=== PATIENT | male | born 1960 ===

== ENCOUNTER → 2020-06-09 12:14 | Outpatient (BNVA) | payer OTHER, SELFPAY | PROVIDERS: PCP Internal Medicine; Referring Provider Internal Medicine; Visit Provider Nurse Practitioner | DX: K21.9 Gastro-esophageal reflux disease without esophagitis (principal); K40.90 Unilateral inguinal hernia, without obstruction or gangrene, not specified as recurrent; K75.81 Nonalcoholic steatohepatitis (NASH); K64.9 Unspecified hemorrhoids; K59.04 Chronic idiopathic constipation; R10.9 Unspecified abdominal pain; Z87.891 Personal history of nicotine dependence | CPT/HCPCS: 99212 ==

== ENCOUNTER 2020-06-19 16:02 | Outpatient (REF) | payer OTHER, SELFPAY ==
[2020-06-19 17:34] LABS: Alanine Aminotransferase 45 U/L (0-40); Albumin Level 4.3 g/dL (3.5-5.0); Alkaline Phosphatase 70 U/L (39-117); Aspartate Amino Transferase 28 U/L (5-37); Bilirubin Direct 0.3 mg/dL (0.0-0.5); Bilirubin Total 0.9 mg/dL (0.0-1.0); Total Protein 6.4 g/dL (6.5-8.0)
[2020-06-20 11:23] LABS: Alpha Fetoprotein 3.6 ng/mL (<6.1)
== END 2020-06-19 16:03 | disposition home or self-care (01) ==
LOC: HO.LAB 16:02
PROVIDERS: PCP Internal Medicine; Visit Provider Nurse Practitioner
DX: K43.2 Incisional hernia without obstruction or gangrene (principal); K75.81 Nonalcoholic steatohepatitis (NASH); Z87.891 Personal history of nicotine dependence
CPT/HCPCS: 80076; 82105; 99212

== ENCOUNTER 2020-07-11 08:03 | Outpatient (REF) | payer OTHER, SELFPAY ==
--- NOTE | 2020-07-11 08:06 | US_ITS ---
EXAMINATION: US ABDOMEN LIMITED CLINICAL INFORMATION: Nonalcoholic steatohepatitis. COMPARISON: Recent abdominal ultrasound dated 12/21/2019 TECHNIQUE: Real-time imaging of the right upper quadrant abdominal viscera. FINDINGS: PANCREAS: Visualized portions of the pancreas are unremarkable. Portions of the body and tail are obscured by bowel gas. LIVER: Increased hepatic parenchymal echogenicity, which can be seen in the setting of steatosis. Underlying hepatocellular disease cannot be excluded. No hepatic parenchymal lesion or biliary ductal dilatation. Focal fatty sparing adjacent to the gallbladder fossa. GALLBLADDER: Normal. The gallbladder is physiologically distended without evidence of stones, sludge, polyps, wall thickening or pericholecystic fluid. COMMON BILE DUCT: Normal in caliber measuring 0.6 cm in diameter. RIGHT KIDNEY: Normal. No hydronephrosis. No renal calculi or focal parenchymal lesions. The kidney measures 10.9 cm in maximum dimension. FREE FLUID: None. US/US abdomen limited IMPRESSION: Increased hepatic parenchymal echogenicity, which can be seen in the setting of steatosis. Underlying hepatocellular disease cannot be excluded. No hepatic parenchymal lesion or biliary ductal dilatation.
--- NOTE | 2020-07-11 13:46 | CT_ITS ---
EXAMINATION: CT ABDOMEN AND PELVIS WITHOUT CONTRAST CLINICAL INFORMATION: Incisional hernia without obstruction or gangrene. COMPARISON: Abdominal ultrasound done earlier the same day. CT abdomen/pelvis dated 07/11/2018. TECHNIQUE: Multidetector volumetric imaging was performed from the superior aspect of the liver through the pubic symphysis. Sagittal and coronal reformatted images were obtained on the technologist's workstation. This CT examination was performed using dose optimization techniques as appropriate, variously including the following: *Automated exposure control *Adjustment of mA and/or kV according to patient size (this includes techniques or standardized protocols for targeted exams where dose is matched to indication/reason for exam; i.e. extremities or head) *Use of iterative reconstruction technique DLP: 558 mGy-cm FINDINGS: LUNG BASES: The visualized lung bases are unremarkable. LIVER, GALLBLADDER, AND BILIARY TREE: The liver is normal in size and shape. Parenchymal hypoattenuation, consistent with steatosis. No focal hepatic lesion or biliary ductal dilatation is present. The gallbladder is unremarkable with no evidence of radiopaque gallstones, gallbladder wall thickening, or obvious pericholecystic inflammatory changes. PANCREAS: Unremarkable. SPLEEN: Unremarkable. ADRENAL GLANDS: Unremarkable. KIDNEYS AND URETERS: The kidneys are normal in size, shape, and attenuation. No hydronephrosis, hydroureter, or calculi seen. No perinephric stranding. BLADDER: Unremarkable. GASTROINTESTINAL TRACT: There are a few scattered sigmoid diverticula. No bowel wall thickening or associated inflammatory change. No small or large bowel obstruction. Appendix not identified, however, no right lower quadrant inflammatory change to suggest appendicitis. PERITONEAL CAVITY: No intra-abdominal free air or free fluid. No intra-abdominal mass or organized fluid collection/abscess. ABDOMINAL WALL: Anterior abdominal wall postsurgical change consistent with prior hernia repair. The previously seen left anterior abdominal wall bowel containing hernia is no longer identified. There is somewhat linear soft tissue density in this region, consistent with postsurgical change. Additional somewhat linear soft tissue density more superiorly, consistent with postsurgical change. No recurrent anterior abdominal wall hernia. No abnormal soft tissue mass or fluid collection. Stable, fat-containing left inguinal hernia. LYMPH NODES: No new or increasing lymphadenopathy. VASCULAR: Unremarkable. PELVIC VISCERA: The prostate and seminal vesicles are unremarkable. OSSEOUS STRUCTURES: Unremarkable. CT/CT abdomen pelvis wo con IMPRESSION: 1. Extensive postsurgical change throughout the anterior abdominal wall consistent with prior hernia repair. Previously seen bowel containing left anterior abdominal wall hernia no longer identified. No recurrent hernia, mass, fluid collection, or inflammatory change. 2. Hepatic steatosis. No hepatic parenchymal lesion or biliary ductal dilatation.
== END 2020-07-11 08:04 | disposition home or self-care (01) ==
LOC: HO.US 08:03
PROVIDERS: PCP Internal Medicine; Visit Provider Nurse Practitioner
DX: K43.2 Incisional hernia without obstruction or gangrene (principal); K75.81 Nonalcoholic steatohepatitis (NASH)
CPT/HCPCS: 74176; 76705

== ENCOUNTER → 2020-09-08 12:27 | Outpatient (BNVA) | payer OTHER, SELFPAY | PROVIDERS: PCP Internal Medicine; Visit Provider Nurse Practitioner | DX: Z13.89 Encounter for screening for other disorder (principal) | CPT/HCPCS: Q3014 ==

== ENCOUNTER → 2020-09-14 10:44 | Outpatient (BNVA) | payer OTHER, SELFPAY | PROVIDERS: PCP Internal Medicine; Visit Provider Internal Medicine | DX: J44.9 Chronic obstructive pulmonary disease, unspecified (principal); J30.9 Allergic rhinitis, unspecified; Z79.51 Long term (current) use of inhaled steroids; Z87.891 Personal history of nicotine dependence | CPT/HCPCS: 99212 ==

== ENCOUNTER 2020-09-27 09:49 | Outpatient (REF) | payer OTHER, SELFPAY ==
--- NOTE | 2020-09-27 10:55 | PFT_ITS ---
FLOWS: FEV1 of 69% of predicted at 2.46 L. FVC 74% of predicted at 3.35 L. FEV1 to FVC ratio of 0.73. Positive bronchodilator response. LUNG VOLUMES: Total lung capacity 93% of predicted at 6.37 L. Residual volume 147% of predicted at 3.0 L. Slow vital capacity 73% of predicted at 3.37 L. Expiratory reserve volume 19% of predicted at 0.26 L. Diffusion capacity is normal. IMPRESSION: Moderate obstructive ventilatory defect with positive bronchodilator response. Increased residual volume suggests air trapping. Decreased expiratory reserve volume suggests extrathoracic restriction likely secondary to abdominal obesity. MD VENKAT Jones/MODL / [id number]
== END 2020-09-27 09:50 | disposition home or self-care (01) ==
LOC: HO.RESP 09:49
PROVIDERS: PCP Internal Medicine; Visit Provider Internal Medicine
DX: J44.9 Chronic obstructive pulmonary disease, unspecified (principal)
CPT/HCPCS: 94060; 94727; 94729

== ENCOUNTER 2021-02-22 16:21 | Outpatient (REF) | payer OTHER, SELFPAY ==
--- NOTE | ~2021-02-22 | US_ITS ---
EXAMINATION: US PELVIS LIMITED (BLADDER) CLINICAL INFORMATION: Unspecified urinary incontinence. COMPARISON: CT abdomen and pelvis 07/11/2020. Ultrasound abdomen limited 07/11/2020. Ultrasound abdomen complete 12/21/2019. KUB 02/08/2019. TECHNIQUE: Real-time imaging of the bladder. FINDINGS: BLADDER: Well distended and normal. Bilateral ureteral jets are demonstrated. Prevoid bladder volume is 134.0 mL. Postvoid bladder volume is 19.0 mL. ADDITIONAL FINDINGS: The prostate gland is slightly enlarged measuring 4.9 x 3.3 x 3.4 cm, volume 29 mL the base of the bladder. US/US bladder IMPRESSION: Slightly enlarged prostate gland that protrudes into the base of the bladder. Otherwise unremarkable exam. No postvoid bladder residual..
[2021-02-22 17:50] LABS: MANUAL DIFF FLAG NO
[2021-02-22 18:16] LABS: Glucose Urine UA NEG (NEG); Leukocyte Esterase Urine NEG (NEG); Nitrite Urine NEG (NEG); Specific Gravity - Urine <= 1.005 (1.005-1.025); Urine Blood TRACE (NEG); Urine Ketones NEG (NEG); Urine Protein NEG (NEG-TRACE)
[2021-02-22 18:18] LABS: Basophils Percent Auto 0.5 % (0-2); Eosinophils Absolute Auto 0.2 X10*3/uL (0.0-0.4); Eosinophils Percent Auto 2.3 % (0-4); Hematocrit 43.9 % (42-52); Hemoglobin 15.5 g/dl (14.0-18.0); Imm Gran Abs Auto 0.06 X10*3/uL (0.00-0.03); Imm Gran Pct Auto 0.8 % (0.0-0.4); Lymphocytes Absolute Auto 1.8 X10*3/uL (1.2-4.9); Lymphocytes Percent Auto 22.6 % (20-40); Mean Corpuscular HGB Conc 35.3 g/dl (31.0-36.0); Mean Corpuscular Hemoglobin 30.9 pg (27.0-33.0); Mean Corpuscular Volume 87.5 fL (80-98); Mean Platelet Volume 11.6 fL (9.4-12.4); Monocytes Absolute Auto 0.6 X10*3/uL (0.1-1.2); Monocytes Percent Auto 8.2 % (2-11); Neutrophils Absolute Auto 5.1 X10*3/uL (2.0-8.3); Neutrophils Percent Auto 65.6 % (45-73); Platelet Count 184 X10*3/uL (160-400); Red Blood Count 5.02 X10*6/uL (4.60-5.80); Red Cell Distribution Width 13.4 % (11.0-16.0); White Blood Count 7.8 X10*3/uL (4.8-10.8)
[2021-02-22 18:26] LABS: Appearance Urine CLEAR; Color Urine STRAW
[2021-02-22 18:28] LABS: Alanine Aminotransferase 104 U/L (0-40); Albumin Level 4.5 g/dL (3.5-5.0); Alkaline Phosphatase 82 U/L (39-117); Aspartate Amino Transferase 50 U/L (5-37); Bilirubin Direct 0.3 mg/dL (0.0-0.5); Total Protein 6.7 g/dL (6.5-8.0)
[2021-02-22 18:29] LABS: Alanine Aminotransferase 103 U/L (0-40); Albumin Level 4.5 g/dL (3.5-5.0); Alkaline Phosphatase 80 U/L (39-117); Anion Gap 11 (12-20); Aspartate Amino Transferase 48 U/L (5-37); Blood Urea Nitrogen 15 mg/dL (9-16); Calcium 9.3 mg/dL (8.4-10.2); Carbon Dioxide 26 mmol/L (22-29); Chloride 104 mmol/L (96-108); Cholesterol 187 mg/dL; Estimated Glomerular Filt Rate > 60; Glucose Random 110 mg/dL (60-115); HDL Cholesterol 40 mg/dL; LDL Cholesterol Calculated 122 mg/dl; Potassium 4.1 mmol/L (3.3-5.1); Sodium 137 mmol/L (135-145); Total Protein 6.7 g/dL (6.5-8.0); Triglycerides 126 mg/dL
[2021-02-22 18:32] LABS: Squamous Epithelial Cell Urine TRACE /LPF; WBC Urine 0 /HPF (0-4)
[2021-02-22 18:48] LABS: Free T4 (Free Thyroxine) 0.99 ng/dL (0.71-1.85); PSA,Total (Free>4and<10) 2.86 ng/mL (0.00-4.00)
[2021-02-22 19:01] LABS: Folate > 20.0 ng/mL (> or = 4.0); Vitamin B12 439 pg/mL (200-900)
[2021-02-27 12:37] LABS: Alpha Fetoprotein 4.2 ng/mL (<6.1)
== END 2021-02-22 16:22 | disposition home or self-care (01) ==
LOC: HO.US 16:21
PROVIDERS: Internal Medicine; Nurse Practitioner; Urology; PCP Internal Medicine; Visit Provider Internal Medicine
DX: R97.20 Elevated prostate specific antigen [PSA] (principal); R32 Unspecified urinary incontinence; K75.81 Nonalcoholic steatohepatitis (NASH); K21.9 Gastro-esophageal reflux disease without esophagitis; E78.00 Pure hypercholesterolemia, unspecified; R10.9 Unspecified abdominal pain; K64.9 Unspecified hemorrhoids; K59.04 Chronic idiopathic constipation; N40.1 Benign prostatic hyperplasia with lower urinary tract symptoms; N13.8 Other obstructive and reflux uropathy; Z12.5 Encounter for screening for malignant neoplasm of prostate
CPT/HCPCS: 36415; 76857; 80053; 80061; 80076; 81001; 82105; 82248; 82607; 82746; 84153; 84439; 84443; 85025

== ENCOUNTER → 2021-03-02 11:44 | Outpatient (BNVA) | payer OTHER, SELFPAY | PROVIDERS: PCP Internal Medicine; Visit Provider Urology | DX: N40.1 Benign prostatic hyperplasia with lower urinary tract symptoms (principal); N13.8 Other obstructive and reflux uropathy; R39.15 Urgency of urination | CPT/HCPCS: Q3014 ==

== ENCOUNTER → 2021-03-15 11:16 | Outpatient (BNVA) | payer OTHER, SELFPAY | PROVIDERS: PCP Internal Medicine; Visit Provider Internal Medicine | DX: J43.1 Panlobular emphysema (principal); J30.9 Allergic rhinitis, unspecified; F41.9 Anxiety disorder, unspecified; F32.9 Major depressive disorder, single episode, unspecified | CPT/HCPCS: 99212 ==

== ENCOUNTER → 2021-04-06 08:49 | Outpatient (BNVA) | payer OTHER, SELFPAY | PROVIDERS: PCP Internal Medicine; Visit Provider Urology | DX: R39.15 Urgency of urination (principal); N40.1 Benign prostatic hyperplasia with lower urinary tract symptoms; N13.8 Other obstructive and reflux uropathy; R32 Unspecified urinary incontinence; N52.9 Male erectile dysfunction, unspecified; Z79.899 Other long term (current) drug therapy; Z87.891 Personal history of nicotine dependence | CPT/HCPCS: 52000; 99212 ==

== ENCOUNTER → 2021-05-08 15:09 | Outpatient (BNVA) | payer OTHER, SELFPAY | PROVIDERS: PCP Internal Medicine; Visit Provider Nurse Practitioner | DX: K51.90 Ulcerative colitis, unspecified, without complications (principal); K64.9 Unspecified hemorrhoids; K75.81 Nonalcoholic steatohepatitis (NASH); K21.9 Gastro-esophageal reflux disease without esophagitis; R14.0 Abdominal distension (gaseous); Z79.899 Other long term (current) drug therapy | CPT/HCPCS: Q3014 ==

== ENCOUNTER 2021-06-12 11:35 | Outpatient (REF) | payer OTHER, SELFPAY ==
[2021-06-12 12:16] LABS: COVID-19 Test Negative (Negative)
== END 2021-06-12 11:36 | disposition home or self-care (01) ==
LOC: HO.LAB 11:35
PROVIDERS: Visit Provider Internal Medicine
DX: Z20.822 Contact with and (suspected) exposure to COVID-19 (principal)
CPT/HCPCS: 36415; 87635; C9803

== ENCOUNTER 2021-06-26 15:40 | Outpatient (REF) | payer OTHER, SELFPAY ==
[2021-06-26 17:07] LABS: Prostate Specific Antigen 3.41 ng/mL (<0.05-4.0)
== END 2021-06-26 15:41 | disposition home or self-care (01) ==
LOC: HO.LAB 15:40
PROVIDERS: PCP Internal Medicine; Visit Provider Urology
DX: Z12.5 Encounter for screening for malignant neoplasm of prostate (principal); N40.1 Benign prostatic hyperplasia with lower urinary tract symptoms; N13.8 Other obstructive and reflux uropathy
CPT/HCPCS: 36415; 84153

== ENCOUNTER 2021-07-04 12:18 | Outpatient (REF) | payer OTHER, SELFPAY ==
--- NOTE | ~2021-07-04 | US_ITS ---
EXAMINATION: US ABDOMEN LIMITED CLINICAL INFORMATION: Abdominal distention (gaseous). COMPARISON: Bladder ultrasound dated 02/22/2021. CT abdomen and pelvis without contrast dated 07/11/2020. Ultrasound abdomen limited dated 07/11/2020. KUB dated 02/08/2019. X-ray abdomen dated 02/11/2018. TECHNIQUE: Real-time imaging of the right upper quadrant abdominal viscera. FINDINGS: PANCREAS: No abnormality appreciated. No abnormal mass or peripancreatic inflammatory change. LIVER: Hepatomegaly is present with vertical span of the right lobe of 21 cm end of the left lobe of 14 cm. The liver contour is normal. There is diffusely increased echogenicity consistent with fatty infiltration. No focal hepatic lesion. There is no intrahepatic biliary duct dilatation seen. GALLBLADDER: Normal. The gallbladder is physiologically distended without evidence of stones, sludge, polyps, wall thickening or pericholecystic fluid. COMMON BILE DUCT: Normal in caliber measuring 0.5 cm in diameter. RIGHT KIDNEY: No hydronephrosis. No renal calculi or focal parenchymal lesions. The kidney measures 10.9 cm in maximum dimension. FREE FLUID: None. US/US abdomen limited IMPRESSION: Diffusely increased echogenicity of the liver consistent with fatty infiltration. Hepatomegaly.
[2021-07-04 14:06] LABS: MANUAL DIFF FLAG NO
[2021-07-04 14:19] LABS: Basophils Percent Auto 0.5 % (0-2); Eosinophils Absolute Auto 0.2 X10*3/uL (0.0-0.4); Eosinophils Percent Auto 1.9 % (0-4); Hematocrit 45.8 % (42.0-52.0); Hemoglobin 15.4 g/dl (14.0-18.0); Imm Gran Abs Auto 0.03 X10*3/uL (0.00-0.03); Imm Gran Pct Auto 0.4 % (0.0-0.4); Lymphocytes Percent Auto 24.6 % (20-40); Mean Corpuscular HGB Conc 33.6 g/dl (31.0-36.0); Mean Corpuscular Hemoglobin 29.7 pg (27.0-33.0); Mean Corpuscular Volume 88.2 fL (80.0-98.0); Mean Platelet Volume 10.8 fL (9.4-12.4); Monocytes Absolute Auto 0.6 X10*3/uL (0.1-1.2); Neutrophils Absolute Auto 5.3 x10*3/uL (2.0-8.3); Neutrophils Percent Auto 65.6 % (45-73); Platelet Count 202 X10*3/uL (160-400); Red Blood Count 5.19 X10*6/uL (4.60-5.80); Red Cell Distribution Width 13.2 % (11.0-16.0)
[2021-07-04 14:39] LABS: Alanine Aminotransferase 148 U/L (0-40); Albumin Level 4.4 g/dL (3.5-5.0); Alkaline Phosphatase 88 U/L (39-117); Anion Gap 12 (12-20); Aspartate Amino Transferase 69 U/L (5-37); Bilirubin Total 0.8 mg/dL (0.0-1.0); Blood Urea Nitrogen 12 mg/dL (9-16); Calcium 9.4 mg/dL (8.4-10.2); Carbon Dioxide 27 mmol/L (22-29); Chloride 105 mmol/L (96-108); Estimated Glomerular Filt Rate > 60; Glucose Random 195 mg/dL (60-115); Potassium 4.2 mmol/L (3.3-5.1); Sodium 140 mmol/L (135-145); Total Protein 6.7 g/dL (6.5-8.0)
[2021-07-05 12:31] LABS: Alpha Fetoprotein 4.1 ng/mL (<6.1)
== END 2021-07-04 12:19 | disposition home or self-care (01) ==
LOC: HO.US 12:18
PROVIDERS: PCP Internal Medicine; Visit Provider Nurse Practitioner
DX: R14.0 Abdominal distension (gaseous) (principal); K75.81 Nonalcoholic steatohepatitis (NASH)
CPT/HCPCS: 36415; 76705; 80053; 82105; 85025

== ENCOUNTER → 2021-07-05 09:35 | Outpatient (BNVA) | payer OTHER, SELFPAY | PROVIDERS: PCP Internal Medicine; Visit Provider Urology | DX: R39.15 Urgency of urination (principal); N52.9 Male erectile dysfunction, unspecified | CPT/HCPCS: Q3014 ==

== ENCOUNTER 2021-07-31 07:31 | Day surgery (SDC) | payer OTHER, SELFPAY ==
--- NOTE | 2021-07-30 11:40 | HO.ANESPROP2 ---
Documented by User: Jerica Goddard NP 07/30/21 11:45 HPI - Anesthesia Eval Consult details Narrative: 60yo M for Colonoscopy PMFSH Active Problems Active Problems: All Active Problems (Updated 05/08/21 @ 16:08 by BRITTANI Wilson) Colon cancer screening (Acute) Abdominal bloating (Acute) Generalized anxiety disorder (Acute) Erectile dysfunction (Acute) BPH w urinary obs/LUTS (Acute) Urinary urgency (Acute) Colon cancer screening (Acute) Urinary incontinence (Acute) Anxiety and depression (Acute) Obesity (BMI 30-39.9) (Acute) COPD (chronic obstructive pulmonary disease) (Acute) Allergic rhinitis (Acute) Incisional hernia (Acute) Ulcerative colitis (Acute) Abdominal cramping (Acute) Hemorrhoids without complication (Acute) GUZMAN (nonalcoholic steatohepatitis) (Acute) Left inguinal hernia (Acute) Chronic idiopathic constipation (Acute) GERD (gastroesophageal reflux disease) (Acute) Past Medical History Medical History Allergic rhinitis Anxiety and depression COPD (chronic obstructive pulmonary disease) COVID-19 virus infection Incisional hernia Insomnia Lymphocytic colitis Obesity (BMI 30-39.9) Family History Family History Father Diabetes HTN (hypertension) Heart attack Mother Skin cancer HTN (hypertension) Diabetes Paternal Aunt Heart attack Sister Skin cancer Surgical History Surgical History History of esophagogastroduodenoscopy (EGD) Hx of appendectomy Hx of cervical spine surgery Hx of colonoscopy Ventral hernia Social History Social History Household Members: Spouse Housing: Apartment Alcohol intake: current Alcohol intake frequency: does not drink Patient Tobacco Use Status: Former Tobacco user Tobacco use type: Cigarette Years Smoked: stopped 2011 e-Cigarette/Vaping Use: Never Used Second Hand Smoke Exposure: No Use of substances other than those prescribed or required for medical reasons: No Have you been hit, kicked, punched, or otherwise hurt by someone within the past year? If so, by whom?: No Are you DNR?: No Advance Directives: No Advance Directives Information Provided: Yes Recently lost weight without trying: No Nutrition Risks: No Nutritional Risk service: No Current occupational status: retired Meds Allergies Allergy/AdvReac Type Severity Reaction Status Date / Time Penicillins [PENICILLINS] Allergy Unknown ANAPHYLAXIS Verified 07/05/21 09:36 Home Medications Medication Instructions Recorded Confirmed Last Taken Type clonazepam 1 mg tablet 1 mg PO .COMPLEX 01/18/21 04/06/21 Unknown History escitalopram oxalate 10 mg tablet 10 mg PO DAILY 01/18/21 04/06/21 Unknown History (Lexapro) qqtjsokf-ars-cuvbs acid 300 1 tab PO DAILY 01/18/21 04/06/21 Unknown History mcg-lycopene 600 mcg-lutein 300 mcg tablet (Centrum Silver Men) omega-3 acid ethyl esters 1 gram 1 cap PO DAILY 01/18/21 04/06/21 Unknown History capsule zolpidem 10 mg tablet 10 mg PO BEDTIME PRN 01/18/21 04/06/21 Unknown History Exam Exam Date and Time: July 30, 2021 1140 Pertinent Lab Results Pertinent Lab Results: Laboratory Tests 07/04/21 07/04/21 14:05 14:05 WBC 8.0 Hgb 15.4 Hct 45.8 Plt Count 202 Sodium 140 Potassium 4.2 Chloride 105 Carbon Dioxide 27 BUN 12 Creatinine 1.10 Assessment and Plan Assessment Anesthesia Assessment: Chart Reviewed Documented by User: Tam Deshpande MD 07/31/21 09:01 [facility] Past Medical History Medical History Allergic rhinitis Anxiety and depression COPD (chronic obstructive pulmonary disease) COVID-19 virus infection Incisional hernia Insomnia Lymphocytic colitis Obesity (BMI 30-39.9) Family History Family History Father Diabetes HTN (hypertension) Heart attack Mother Skin cancer HTN (hypertension) Diabetes Paternal Aunt Heart attack Sister Skin cancer Family history of problems with anesthesia: No Surgical History Surgical History History of esophagogastroduodenoscopy (EGD) Hx of appendectomy Hx of cervical spine surgery Hx of colonoscopy Ventral hernia History of Problems with Anesthesia: No Social History Social History Household Members: Spouse Housing: Apartment Alcohol intake: current Alcohol intake frequency: does not drink Patient Tobacco Use Status: Former Tobacco user Tobacco use type: Cigarette Years Smoked: 2011 e-Cigarette/Vaping Use: Never Used Second Hand Smoke Exposure: No Use of substances other than those prescribed or required for medical reasons: No Have you been hit, kicked, punched, or otherwise hurt by someone within the past year? If so, by whom?: No Are you DNR?: No Advance Directives: No Advance Directives Information Provided: Yes Recently lost weight without trying: No Nutrition Risks: No Nutritional Risk service: No Current occupational status: retired Meds Allergies Allergy/AdvReac Type Severity Reaction Status Date / Time Penicillins [PENICILLINS] Allergy Unknown ANAPHYLAXIS Verified 07/05/21 09:36 Home Medications Medication Instructions Recorded Confirmed Last Taken Type clonazepam 1 mg tablet 1 mg PO .COMPLEX 01/18/21 04/06/21 Unknown History escitalopram oxalate 10 mg tablet 10 mg PO DAILY 01/18/21 04/06/21 Unknown History (Lexapro) btmsfdme-aus-cvein acid 300 1 tab PO DAILY 01/18/21 04/06/21 Unknown History mcg-lycopene 600 mcg-lutein 300 mcg tablet (Centrum Silver Men) omega-3 acid ethyl esters 1 gram 1 cap PO DAILY 01/18/21 04/06/21 Unknown History capsule zolpidem 10 mg tablet 10 mg PO BEDTIME PRN 01/18/21 04/06/21 Unknown History Exam Airway Mallampati Class: I TM Dist: >3cm Neck ROM: Full Loose/Missing/Broken Teeth: Yes Assessment and Plan Assessment Anesthesia Assessment: Anesthesia Plan Discussed Final Anesthetic Review Family History of Problems with Anesthesia: No History of Problems with Anesthesia: No NPO: Yes ASA Class: III Final Preanesthetic Review: No Changes in Pt Med Stat, Consent Obtained/Reviewed and Anes Risks/Benef Reviewed Patient Risk: Low Procedure Risk: Low Anesthetic Plan Anesthetic Plan: MAC: Disposition: Standard PACU
[2021-07-31 07:38] VITALS: BP 137/86; PULSE 62; RESP 16; TEMP 36.3; O2SAT 97; BMI 31.4
[2021-07-31] MEDS: Lactated Ringers 1,000 ML 100 ML IVCONT (08:01)
--- NOTE | 2021-07-31 08:32 | MHC.SHP ---
Pre-Procedural Eval Section A Date of Service: 07/31/21 Section B Chief Complaint: screening Details of Present Illness: HX of colitis, uncertain if UC or lymphocytic Relevant Family History (Specify if Yes): No Relevant Social History: None Present Medications: see Short Stay Collaborative assessment Medical History: Significant History (Allergic rhinitis Anxiety and depression COPD (chronic obstructive pulmonary disease) COVID-19 virus infection Incisional hernia Insomnia Lymphocytic colitis Obesity (BMI 30-39.9)) History of Previous Operations: Relevant previous surgery/procedure and date(s) (History of esophagogastroduodenoscopy (EGD) Hx of appendectomy Hx of cervical spine surgery Hx of colonoscopy Ventral hernia) Allergies: Allergies Allergy/AdvReac Type Severity Reaction Status Date / Time Penicillins [PENICILLINS] Allergy Unknown ANAPHYLAXIS Verified 07/05/21 09:36 Review of Systems Sugical H&P ROS: Negative: Constitution, Cardiovascular, Respiratory, Neurological, Psychiatric, Hem-Onc, Allergic/Immunologic, Gastrointestinal, Genitourinary, Musculoskeletal, Integumentary, Endocrine and Eyes/Ears/Nose/Throat Exam Surgical H&P Exam: Normal: HEENT, Normal: Heart, Normal: Lungs, Normal: Extremities, Normal: Abdomen, Normal: Skin and Normal: Neurological Plan Diagnosis/Plan: Unchanged I have reviewed the history and physical and performed a pertinent physical examination on my patient. No changes have occurred unless specified.
--- NOTE | 2021-07-31 09:09 | PM.OP ---
Brief Operative Note Date of Service: 07/31/21 Pre-op diagnosis: screening Post-op diagnosis: same Procedure: see op note Surgeon: Jackie Hamilton MD Anesthesia: MAC Was an Heel Boom Operator used for this Procedure?: No Estimated blood loss (mL): 0 Condition: stable Disposition: PACU
--- NOTE | 2021-07-31 09:09 | W.PM.OPN ---
Operative Note Operative Note Date of Service: 07/31/21 Narrative: Operative Information Procedure Description: Colonoscopy COLONOSCOPY Instrument: Olympus variable stiffness pediatric scope 190L Colonoscopy Monitoring: Vital signs and clinical assessment, continuous EKG monitoring, Pulse oximetry, Carbon Dioxide monitoring and blood pressure monitoring were done throughout the procedure. Colon withdrawal time was 14 minutes. Procedure: The patient was placed in the left lateral decubitis position and pre-procedure medications were administered. After a digital rectal examination of the ano-rectum, the video colonoscope was inserted into the rectum and advanced through the colon to the cecum/TI. The colonoscope was slowly withdrawn in a retrograde panoramic fashion and the colon mucosa was carefully examined including a retroflexed view of the rectum. Findings and interventions are described below. Procedure Difficulty: easy Findings: Terminal Ileum-normal bx taken from right colon, left and rectum in separate jars to check for microscopic colitis Cecum:normal Ascending Colon: in proximal colon there was a very subtle flat polyp lesion, Greta classification 0-IIa measuring about 12-14 mm. This was raised with ORISE and then removed en bloc with cold snare and retrieved. There was also a diverticulum noted Transverse Colon - 8-10 mm sessile polyp lifted with ORISE and removed with cold snare Descending Colon:normal Sigmoid Colon: normal Rectum: Retroflexion with moderate sized internal hemorrhoids, grade II Anorectum - internal hemorrhoids seen at anal verge Colon preparation: [place] Bowel Preparation Scale Right colon; 3 Transverse colon: 3 Left colon; 3 (0 = Unprepared colon segment with mucosa not seen due to solid stool that cannot be cleared. 1 = Portion of mucosa of the colon segment seen, but other areas of the colon segment not well seen due to staining, residual stool and/or opaque liquid. 2 = Minor amount of residual staining, small fragments of stool and/or opaque liquid, but mucosa of colon segment seen well. 3 = Entire mucosa of colon segment seen well with no residual staining, small fragments of stool or opaque liquid) Impression and Post Procedure Diagnosis: polyps internal hemorrhoids diverticular disease Plan: High fiber diet leaflet Avoid straining at stool, epsom salts and sitz bath, anusol supps or cream Repeat Colonoscopy in 3 years due to subtle polyps removed today or earlier if clinically indicated Above findings were reviewed with the patient and relevant handouts were provided if indicated.
[2021-07-31 09:14] VITALS: BP 119/64; PULSE 75; RESP 18; TEMP 36.3; O2SAT 96
[2021-07-31 09:29] VITALS: BP 120/75; PULSE 66; RESP 18; TEMP 36.3; O2SAT 95
== END 2021-07-31 09:52 | disposition home or self-care (01) ==
PROVIDERS: PCP Internal Medicine; Visit Provider Internal Medicine Gastroenterology
PROC: 0DJD8ZZ Inspection of Lower Intestinal Tract, Via Natural or Artificial Opening Endoscopic (ICD-10-PCS; CPT 45378; principal; 2021-07-31 08:30)
DX: Z12.11 Encounter for screening for malignant neoplasm of colon (principal); D12.2 Benign neoplasm of ascending colon; D12.3 Benign neoplasm of transverse colon; K57.30 Diverticulosis of large intestine without perforation or abscess without bleeding; K64.1 Second degree hemorrhoids; K75.81 Nonalcoholic steatohepatitis (NASH); K21.9 Gastro-esophageal reflux disease without esophagitis; K59.04 Chronic idiopathic constipation; K51.90 Ulcerative colitis, unspecified, without complications; J44.9 Chronic obstructive pulmonary disease, unspecified; J30.9 Allergic rhinitis, unspecified; F32.9 Major depressive disorder, single episode, unspecified; Z79.899 Other long term (current) drug therapy; Z88.0 Allergy status to penicillin; Z86.16 Personal history of COVID-19; Z87.891 Personal history of nicotine dependence
CPT/HCPCS: 45385; 45380; 45381; 88305

== ENCOUNTER 2021-08-08 13:51 | Outpatient (REF) | payer OTHER, SELFPAY ==
--- NOTE | ~2021-08-08 | XR_ITS ---
EXAMINATION: XR CHEST CLINICAL INFORMATION: J30.9 - Allergic rhinitis, unspecified COMPARISON: Chest radiographs 11/20/2019, 10/20/2019 TECHNIQUE: 2 views of the chest were obtained. FINDINGS: The lungs are clear. There is no hyperinflation. No coarsening bronchiolar markings. There is no airspace consolidation or groundglass opacity. The costophrenic sulci are clear. The heart is normal in size. The hilar and mediastinal contours are normal. No acute bony abnormality. XR/XR chest 2V IMPRESSION: Unremarkable examination.
== END 2021-08-08 13:52 | disposition home or self-care (01) ==
LOC: HO.XRAY 13:51
PROVIDERS: PCP Internal Medicine; Visit Provider Internal Medicine
DX: J43.1 Panlobular emphysema (principal); J30.9 Allergic rhinitis, unspecified
CPT/HCPCS: 71046; 99212

== ENCOUNTER → 2021-08-13 15:01 | Outpatient (BNVA) | payer OTHER, SELFPAY | PROVIDERS: PCP Internal Medicine; Referring Provider Internal Medicine; Visit Provider Nurse Practitioner | DX: K63.5 Polyp of colon (principal); K75.81 Nonalcoholic steatohepatitis (NASH); K59.04 Chronic idiopathic constipation; K21.9 Gastro-esophageal reflux disease without esophagitis | CPT/HCPCS: 99212 ==

== ENCOUNTER 2021-09-03 13:53 | Outpatient (REF) | payer OTHER, SELFPAY ==
--- NOTE | 2021-09-03 | PFT_ITS ---
Forced vital capacity is 69% and FEV1 61%. FEV1/FVC ratio 69. FEF 25-75 is 36%. MVV 72%. After bronchodilator therapy, there is minimal improvement in FEV1, but significant improvement in FEF 25-75, by 52%. Total lung capacity 89% and residual volume 124% indicating some air trapping. Diffusion capacity 81%, normal. CONCLUSION: Obstructive airway disorder, moderately severe, there is minimal improvement after bronchodilator therapy. Clinical correlation recommended. Vianca Lyons MD MSB/MODL / [id number]
== END 2021-09-03 13:54 | disposition home or self-care (01) ==
LOC: HO.RESP 13:53
PROVIDERS: PCP Internal Medicine; Visit Provider Internal Medicine
DX: J44.9 Chronic obstructive pulmonary disease, unspecified (principal)
CPT/HCPCS: 94060; 94727; 94729

== ENCOUNTER → 2021-09-17 13:46 | Outpatient (BNVA) | payer OTHER, SELFPAY | PROVIDERS: PCP Internal Medicine; Visit Provider Internal Medicine | DX: J43.1 Panlobular emphysema (principal); J30.9 Allergic rhinitis, unspecified | CPT/HCPCS: 99212 ==

== ENCOUNTER → 2022-01-14 13:09 | Outpatient (BNVA) | payer OTHER, SELFPAY | PROVIDERS: PCP Internal Medicine; Visit Provider Internal Medicine | DX: J43.1 Panlobular emphysema (principal); J30.9 Allergic rhinitis, unspecified; F41.9 Anxiety disorder, unspecified; F32.9 Major depressive disorder, single episode, unspecified; Z79.899 Other long term (current) drug therapy | CPT/HCPCS: 99212 ==

== ENCOUNTER 2022-02-04 08:37 | Outpatient (REF) | payer OTHER, SELFPAY ==
--- NOTE | ~2022-02-04 | XR_ITS ---
EXAMINATION: XR SINUSES CLINICAL INFORMATION: Nasal congestion COMPARISON: None TECHNIQUE: 3 views of the sinuses were obtained. FINDINGS: Paranasal sinuses appear clear without air-fluid levels. No fractures are identified. No radiodense foreign bodies. XR/XR sinus <3V IMPRESSION: Unremarkable examination.
[2022-02-04 09:05] LABS: MANUAL DIFF FLAG NO
[2022-02-04 09:23] LABS: Basophils Absolute Auto 0.1 X10*3/uL (0.0-0.2); Basophils Percent Auto 0.7 % (0-2); Eosinophils Absolute Auto 0.2 X10*3/uL (0.0-0.4); Eosinophils Percent Auto 2.4 % (0-4); Hematocrit 47.1 % (42.0-52.0); Hemoglobin 16.2 g/dl (14.0-18.0); Imm Gran Abs Auto 0.05 X10*3/uL (0.00-0.03); Imm Gran Pct Auto 0.6 % (0.0-0.4); Lymphocytes Absolute Auto 2.7 X10*3/uL (1.2-4.9); Lymphocytes Percent Auto 30.7 % (20-40); Mean Corpuscular HGB Conc 34.4 g/dl (31.0-36.0); Mean Corpuscular Hemoglobin 30.6 pg (27.0-33.0); Monocytes Absolute Auto 0.7 X10*3/uL (0.1-1.2); Neutrophils Absolute Auto 5.1 x10*3/uL (2.0-8.3); Neutrophils Percent Auto 57.6 % (45-73); Platelet Count 172 X10*3/uL (160-400); Red Blood Count 5.29 X10*6/uL (4.60-5.80); Red Cell Distribution Width 13.6 % (11.0-16.0); White Blood Count 8.9 X10*3/uL (4.8-10.8)
[2022-02-04 09:48] LABS: Appearance Urine CLEAR; Color Urine YELLOW; Glucose Urine UA NEG (NEG); Leukocyte Esterase Urine NEG (NEG); Nitrite Urine NEG (NEG); Urine Blood NEG (NEG); Urine Ketones NEG (NEG); Urine Protein NEG (NEG-TRACE)
[2022-02-04 09:48] LABS: Estimated Average Glucose 134 mg/dL; Hemoglobin A1c % 6.3 %
[2022-02-04 09:55] LABS: Alanine Aminotransferase 94 U/L (0-40); Albumin Level 4.6 g/dL (3.5-5.0); Alkaline Phosphatase 92 U/L (39-117); Anion Gap 14 (12-20); Aspartate Amino Transferase 46 U/L (5-37); Blood Urea Nitrogen 16 mg/dL (9-16); Calcium 9.3 mg/dL (8.4-10.2); Carbon Dioxide 28 mmol/L (22-29); Chloride 102 mmol/L (96-108); Cholesterol 211 mg/dL; Estimated Glomerular Filt Rate > 60; Glucose Random 124 mg/dL (60-115); HDL Cholesterol 38 mg/dL; LDL Cholesterol Calculated 146 mg/dl; Potassium 4.4 mmol/L (3.3-5.1); Sodium 140 mmol/L (135-145); Total Protein 6.9 g/dL (6.5-8.0); Triglycerides 135 mg/dL; Uric Acid 6.1 mg/dL (3.4-7.0)
[2022-02-04 10:00] LABS: Squamous Epithelial Cell Urine TRACE /LPF
[2022-02-04 10:01] LABS: RBC Urine 0-2 /HPF (0); WBC Urine 0-2 /HPF (0-4)
[2022-02-04 10:18] LABS: Free T4 (Free Thyroxine) 1.13 ng/dL (0.71-1.85); Prostate Specific Antigen Scr 2.94 ng/mL (<0.05-4.0); Thyroid Stimulating Hormone 2.07 uIU/mL (0.32-4.0)
[2022-02-04 11:08] LABS: Folate > 20.0 ng/mL (> or = 4.0); Vitamin B12 506 pg/mL (200-900)
[2022-02-09 01:12] LABS: Testosterone, Total 471 ng/dL (250-1100)
== END 2022-02-04 08:38 | disposition home or self-care (01) ==
LOC: HO.XRAY 08:37
PROVIDERS: PCP Internal Medicine; Visit Provider Internal Medicine
DX: Z12.5 Encounter for screening for malignant neoplasm of prostate (principal); R09.81 Nasal congestion; R32 Unspecified urinary incontinence; K21.9 Gastro-esophageal reflux disease without esophagitis; K75.81 Nonalcoholic steatohepatitis (NASH); E78.00 Pure hypercholesterolemia, unspecified
CPT/HCPCS: 36415; 70210; 80053; 80061; 81001; 82607; 82746; 83036; 84153; 84403; 84439; 84443; 84550; 85025

== ENCOUNTER 2022-02-12 16:01 | Outpatient (REF) | payer OTHER, SELFPAY ==
[2022-02-14 12:11] LABS: Alpha Fetoprotein 4.2 ng/mL (<6.1)
== END 2022-02-12 16:02 | disposition home or self-care (01) ==
LOC: HO.LAB 16:01
PROVIDERS: PCP Internal Medicine; Visit Provider Nurse Practitioner
DX: K75.81 Nonalcoholic steatohepatitis (NASH) (principal); K43.2 Incisional hernia without obstruction or gangrene; K21.9 Gastro-esophageal reflux disease without esophagitis; K59.04 Chronic idiopathic constipation; K63.5 Polyp of colon
CPT/HCPCS: 36415; 82105; 99202; 99212

== ENCOUNTER 2022-04-09 08:52 | Outpatient (REF) | payer OTHER, SELFPAY ==
--- NOTE | ~2022-04-09 | US_ITS ---
EXAMINATION: US ABDOMEN COMPLETE CLINICAL INFORMATION: Nonalcoholic steatohepatitis (GUZMAN). COMPARISON: Ultrasound abdomen limited 07/04/2021 and 07/11/2020. CT abdomen and pelvis without contrast 07/11/2020. X-ray abdomen 02/08/2019 and 02/11/2018. TECHNIQUE: Real-time imaging of the abdominal viscera. FINDINGS: PANCREAS: The head and body of the pancreas appears unremarkable. Details obscured by overlying bowel gas. ABDOMINAL AORTA: The proximal, mid, and distal segments are normal in caliber. INFERIOR VENA CAVA: Visualized portions are normal. LIVER: There is diffusely increased echogenicity of the liver consistent with fatty infiltration. The liver appears prominent in size, however, on provided imaging it is difficult to measure. The liver contour is normal. No focal hepatic lesion. There is no intrahepatic biliary duct dilatation seen. GALLBLADDER: Normal. The gallbladder is physiologically distended without evidence of stones, sludge, polyps, wall thickening or pericholecystic fluid. COMMON BILE DUCT: Normal in caliber measuring 0.4 cm in diameter. RIGHT KIDNEY: Normal. No hydronephrosis. No renal calculi or focal parenchymal lesions. The kidney measures 11.0 cm in maximum dimension. LEFT KIDNEY: Normal. No hydronephrosis. No renal calculi or focal parenchymal lesions. The kidney measures 11.9 cm in maximum dimension. SPLEEN: Enlarged. The spleen measures 14.7 cm in maximum dimension. FREE FLUID: None. US/US abdomen complete IMPRESSION: Splenomegaly. Prominent liver with appearance of fatty infiltration.
== END 2022-04-09 08:53 | disposition home or self-care (01) ==
LOC: HO.US 08:52
PROVIDERS: PCP Internal Medicine; Visit Provider Nurse Practitioner
DX: K43.2 Incisional hernia without obstruction or gangrene (principal); K75.81 Nonalcoholic steatohepatitis (NASH)
CPT/HCPCS: 76700

== ENCOUNTER → 2022-05-16 13:43 | Outpatient (BNVA) | payer OTHER, SELFPAY | PROVIDERS: PCP Internal Medicine; Visit Provider Internal Medicine | DX: J30.9 Allergic rhinitis, unspecified (principal); J43.1 Panlobular emphysema | CPT/HCPCS: 99212 ==

== ENCOUNTER → 2022-07-05 08:30 | Outpatient (BNVA) | payer OTHER, SELFPAY | PROVIDERS: PCP Internal Medicine; Visit Provider Urology | DX: N40.1 Benign prostatic hyperplasia with lower urinary tract symptoms (principal); N13.8 Other obstructive and reflux uropathy; R39.15 Urgency of urination; N52.9 Male erectile dysfunction, unspecified | CPT/HCPCS: 51798; 99212 ==

== ENCOUNTER → 2022-07-09 12:56 | Outpatient (BNVA) | payer OTHER, SELFPAY | PROVIDERS: PCP Internal Medicine; Visit Provider Nurse Practitioner | DX: K75.81 Nonalcoholic steatohepatitis (NASH) (principal); K59.04 Chronic idiopathic constipation; K21.9 Gastro-esophageal reflux disease without esophagitis; K51.90 Ulcerative colitis, unspecified, without complications | CPT/HCPCS: 99212 ==

== ENCOUNTER 2022-08-12 09:35 | Outpatient (REF) | payer OTHER, SELFPAY ==
--- NOTE | ~2022-08-12 | US_ITS ---
EXAMINATION: US ABDOMEN LIMITED CLINICAL INFORMATION: Nonalcoholic steatohepatitis. COMPARISON: Ultrasound abdomen complete 04/09/2022. Limited abdominal ultrasound 07/04/2021. CT abdomen and pelvis 07/11/2020. TECHNIQUE: Real-time imaging of the right upper quadrant abdominal viscera. FINDINGS: PANCREAS: Limited. The visualized pancreatic head and body are normal in appearance. The remainder of the pancreas is obscured from visualization by the overlying bowel gas. LIVER: There is mild hepatomegaly, with a longitudinal span of 17.7 cm The liver contour is normal. There is diffuse increased liver parenchymal echogenicity, with pericholecystic sparing. No focal hepatic lesion. There is no intrahepatic biliary duct dilatation seen. GALLBLADDER: Normal. The gallbladder is physiologically distended without evidence of stones, sludge, polyps, wall thickening or pericholecystic fluid. COMMON BILE DUCT: Normal in caliber measuring 0.3 cm in diameter. RIGHT KIDNEY: Normal. No hydronephrosis. No renal calculi or focal parenchymal lesions. The kidney measures 11.7 cm in maximum dimension. FREE FLUID: None. US/US abdomen limited IMPRESSION: There is generalized increase in hepatic echotexture, consistent with fatty infiltration or hepatocellular disease. Characteristic pericholecystic sparing favors fatty infiltration. Provided history of GUZMAN noted. No focal hepatic mass or intrahepatic biliary dilatation is seen.
== END 2022-08-12 09:36 | disposition home or self-care (01) ==
LOC: HO.US 09:35
PROVIDERS: PCP Internal Medicine; Visit Provider Nurse Practitioner
DX: K75.81 Nonalcoholic steatohepatitis (NASH) (principal)
CPT/HCPCS: 76705

== ENCOUNTER 2022-08-26 09:15 | Outpatient (REF) | payer OTHER, SELFPAY ==
[2022-08-26 12:46] LABS: Alanine Aminotransferase 135 U/L (0-40); Albumin Level 4.1 g/dL (3.5-5.0); Alkaline Phosphatase 84 U/L (39-117); Anion Gap 12 (12-20); Aspartate Amino Transferase 66 U/L (5-37); Bilirubin Total 0.8 mg/dL (0.0-1.0); Blood Urea Nitrogen 12 mg/dL (9-16); Calcium 8.8 mg/dL (8.4-10.2); Carbon Dioxide 29 mmol/L (22-29); Chloride 104 mmol/L (96-108); Cholesterol 191 mg/dL; Estimated Glomerular Filt Rate > 60; Glucose Fasting 143 mg/dL (60-99); HDL Cholesterol 34 mg/dL; LDL Cholesterol Calculated 131 mg/dl; Potassium 4.6 mmol/L (3.3-5.1); Sodium 140 mmol/L (135-145); Total Protein 6.2 g/dL (6.5-8.0); Triglycerides 130 mg/dL
== END 2022-08-26 09:16 | disposition home or self-care (01) ==
LOC: HO.LAB 09:15
PROVIDERS: PCP Internal Medicine; Visit Provider Internal Medicine
DX: K51.90 Ulcerative colitis, unspecified, without complications (principal); E78.5 Hyperlipidemia, unspecified
CPT/HCPCS: 36415; 80053; 80061

== ENCOUNTER → 2022-09-05 11:17 | Outpatient (BNVA) | payer OTHER, SELFPAY | PROVIDERS: PCP Internal Medicine; Visit Provider Urology | DX: N52.9 Male erectile dysfunction, unspecified (principal) | CPT/HCPCS: Q3014 ==

== ENCOUNTER 2022-10-08 12:25 | Outpatient (REF) | payer OTHER, SELFPAY ==
[2022-10-08 14:15] LABS: Estimated Average Glucose 146 mg/dL; Hemoglobin A1c % 6.7 %
== END 2022-10-08 12:26 | disposition home or self-care (01) ==
LOC: HO.LAB 12:25
PROVIDERS: PCP Internal Medicine; Referring Provider Internal Medicine; Visit Provider Nurse Practitioner
DX: K51.90 Ulcerative colitis, unspecified, without complications (principal); K21.9 Gastro-esophageal reflux disease without esophagitis; K75.81 Nonalcoholic steatohepatitis (NASH); K59.04 Chronic idiopathic constipation; R73.01 Impaired fasting glucose; R10.9 Unspecified abdominal pain; R14.0 Abdominal distension (gaseous)
CPT/HCPCS: 36415; 83036; 99212

== ENCOUNTER 2022-11-07 08:02 | Outpatient (REF) | payer OTHER, SELFPAY ==
[2022-11-07 08:56] LABS: Glucose Fasting 146 mg/dL (60-99)
[2022-11-07 09:02] LABS: Alanine Aminotransferase 170 U/L (0-40); Albumin Level 4.3 g/dL (3.5-5.0); Alkaline Phosphatase 97 U/L (39-117); Anion Gap 10 (12-20); Aspartate Amino Transferase 78 U/L (5-37); Blood Urea Nitrogen 11 mg/dL (9-16); Calcium 9.5 mg/dL (8.4-10.2); Carbon Dioxide 31 mmol/L (22-29); Chloride 103 mmol/L (96-108); Estimated Glomerular Filt Rate > 60; Glucose Fasting 148 mg/dL (60-99); Potassium 4.2 mmol/L (3.3-5.1); Sodium 140 mmol/L (135-145); Total Protein 6.5 g/dL (6.5-8.0)
[2022-11-07 10:30] LABS: Glucose 1 Hour 294 mg/dL
[2022-11-07 11:41] LABS: Glucose 2 Hour 342 mg/dL
== END 2022-11-07 08:03 | disposition home or self-care (01) ==
LOC: HO.LAB 08:02
PROVIDERS: Internal Medicine; Visit Provider Nurse Practitioner
DX: R73.01 Impaired fasting glucose (principal)
CPT/HCPCS: 36415; 80053

== ENCOUNTER → 2022-11-12 13:26 | Outpatient (BNVA) | payer OTHER, SELFPAY | PROVIDERS: PCP Internal Medicine; Visit Provider Nurse Practitioner | DX: K75.81 Nonalcoholic steatohepatitis (NASH) (principal); E11.9 Type 2 diabetes mellitus without complications | CPT/HCPCS: 99212 ==

== ENCOUNTER → 2022-11-14 13:27 | Outpatient (BNVA) | payer OTHER, SELFPAY | PROVIDERS: PCP Internal Medicine; Visit Provider Internal Medicine | DX: J30.9 Allergic rhinitis, unspecified (principal); J43.1 Panlobular emphysema; Z87.891 Personal history of nicotine dependence | CPT/HCPCS: 94010; 99212 ==

== ENCOUNTER 2022-11-15 14:18 | Outpatient (REF) | payer OTHER, SELFPAY ==
--- NOTE | ~2022-11-15 | CT_ITS ---
EXAMINATION: LUNG CANCER SCREENING CT CHEST WITHOUT CONTRAST CLINICAL INFORMATION: Former smoker with 33 pack year history, quit 11 years ago COMPARISON: None TECHNIQUE: Multidetector volumetric CT imaging of the chest was obtained noncontrast using low dose screening CT technique. Axial thin section 0.625 mm reformations in soft tissue and lung windows were obtained. Sagittal and coronal reformations were obtained. Axial MIP images were also created and reviewed. This CT examination was performed using dose optimization techniques as appropriate, variously including the following: *Automated exposure control *Adjustment of mA and/or kV according to patient size (this includes techniques or standardized protocols for targeted exams where dose is matched to indication/reason for exam; i.e. extremities or head) *Use of iterative reconstruction technique TOTAL EXAM DLP: 68.67 mGy-cm FINDINGS: PULMONARY NODULES: No suspicious pulmonary nodules. There are a few scattered pulmonary nodules measuring less than 3 mm, most which are pleural-based with exception of a punctate nodule in the left lower lobe. LUNGS / PLEURA: Mild emphysema. Diffuse mild bronchial wall thickening without bronchiectasis. No pleural effusion or pneumothorax. MEDIASTINUM / PATRICIA: Heart normal in size without pericardial effusion. Great vessels normal caliber. No lymphadenopathy. Coronary calcifications present. Imaged thyroid gland unremarkable. CHEST WALL / AXILLA: Unremarkable. UPPER ABDOMEN: Hepatic steatosis. OSSEOUS STRUCTURES: No acute or suspicious osseous abnormalities. CT/CT lung screening IMPRESSION: * No evidence of pulmonary malignancy. * There are no pulmonary nodules that meet criteria for short interval follow-up at this time. ASSESSMENT: Lung RADS category: 2S. Benign appearance or behavior. Nodules with a very low likelihood of becoming a clinically active cancer due to size or lack of growth. Continue annual screening with low-dose CT in 12 months. Probability of malignancy less than 1%. Clinically significant or potentially clinically significant findings (non lung cancer). Management as appropriate to the specific finding. INCIDENTAL FINDINGS (S CATEGORY): Hepatic steatosis. RECOMMENDATION: Follow up low dose CT chest in 1 year.
== END 2022-11-15 14:19 | disposition home or self-care (01) ==
LOC: HO.CT 14:18
PROVIDERS: PCP Internal Medicine; Visit Provider Physician Assistant Medical
DX: Z12.2 Encounter for screening for malignant neoplasm of respiratory organs (principal); Z87.891 Personal history of nicotine dependence
CPT/HCPCS: 71271; G0296

== ENCOUNTER 2023-01-22 09:12 | Outpatient (REF) | payer OTHER, SELFPAY ==
[2023-01-22 10:58] LABS: Alanine Aminotransferase 169 U/L (0-40); Albumin Level 4.3 g/dL (3.5-5.0); Alkaline Phosphatase 96 U/L (39-117); Anion Gap 12 (12-20); Aspartate Amino Transferase 88 U/L (5-37); Bilirubin Total 1.1 mg/dL (0.0-1.0); Blood Urea Nitrogen 15 mg/dL (9-16); Calcium 9.6 mg/dL (8.4-10.2); Carbon Dioxide 30 mmol/L (22-29); Chloride 102 mmol/L (96-108); Estimated Glomerular Filt Rate > 60; Glucose Fasting 137 mg/dL (60-99); Potassium 4.1 mmol/L (3.3-5.1); Sodium 140 mmol/L (135-145); Total Protein 6.9 g/dL (6.5-8.0)
== END 2023-01-22 09:13 | disposition home or self-care (01) ==
LOC: HO.LAB 09:12
PROVIDERS: PCP Internal Medicine; Visit Provider Internal Medicine
DX: E11.9 Type 2 diabetes mellitus without complications (principal)
CPT/HCPCS: 36415; 80053

== ENCOUNTER 2023-01-28 16:57 | Outpatient (AMB) | payer OTHER, SELFPAY ==
[2023-01-28 17:10] VITALS: BP 118/76; BMI 31.5
--- NOTE | 2023-01-28 17:10 | A.OFFPC_ITS ---
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 Required: No Accompanied by: Self / Same As Patient Allergies Penicillins [PENICILLINS] Allergy (Unknown, Verified 01/28/23 17:43) ANAPHYLAXIS Medication List - Last Reconciled 01/28/23 by Shelli Bartlett MD albuterol sulfate 2.5 mg inhalation Q6H PRN amitriptyline 25 mg PO BEDTIME [bath mat As directed] bisacodyl 10 mg (2 x 5 mg) PO BEDTIME bupropion HCl 300 mg PO QAM clonazepam 1 mg PO 1 tab in pm and 1/2 tab Qam; dexlansoprazole 60 mg PO DAILY emollient combination no.32 (EpiCeram topical emulsion, extended release) topical escitalopram oxalate (Lexapro) 10 mg PO DAILY hydrocortisone 2.5% (Proctosol HC) 1 appl VT BID Incruse Ellipta 62.5 mcg/actuation (umeclidinium) 1 inh PO DAILY NS ketoconazole 2% appl topical DAILY PRN mesalamine 2.4 grams (2 x 1.2 gram) PO DAILY montelukast TAKE 1 TABLET BY MOUTH DAILY [id number] mcg (Centrum Silver Men) 1 tab PO DAILY propranolol ER 80 mg PO BID ropinirole 1 mg PO BEDTIME simethicone (Gas Relief Extra Strength) 125 mg PO BID-QID tadalafil 20 mg PO ONCE PRN 30 days tolterodine ER 4 mg PO DAILY 90 days triamcinolone acetonide 0.1% 1 appl topical BID-TID Ventolin HFA 90 mcg/actuation (albuterol sulfate) 2 puffs PO QID PRN NS zolpidem 10 mg PO BEDTIME PRN Tobacco use date assessed: 08/26/22 Dental Screening Dental Screen Date: 01/28/23 Did you have a dental visit in the last 12 months?: Yes Did you have a dental problem in the last 6 months where you did not have access to dental care?: No Was dental information given to patient?: Patient has dentist HPI HPI Comments History of Present Illness Details This is a 62-year-old male with diabetes mellitus type 2, COPD, mild major depression and ulcerative colitis that comes for his physical exam. A1c is elevated and I will start him on metformin. COPD stable with inhalers. Depression well controlled with medications and this is follow by Psychiatry. Ulcerative colitis stable with mesalamine. Last colonoscopy was 2021 showing tubular adenoma. Denies any chest pain or shortness of breath. [facility] Medical History (Updated 01/28/23 @ 19:29 by Shelli Bartlett MD) Allergic rhinitis COPD (chronic obstructive pulmonary disease) History of COVID-19 Insomnia Obesity (BMI 30-39.9) Personal history of nicotine dependence Ulcerative colitis Surgical History History of appendectomy History of cervical spinal surgery History of colonoscopy History of esophagogastroduodenoscopy (EGD) History of incisional hernia repair Family History Father Diabetes HTN (hypertension) Heart attack Mother Skin cancer HTN (hypertension) Diabetes Paternal Aunt Heart attack Sister Skin cancer Social History Household Members: Spouse Housing: Apartment Alcohol intake: never Patient Tobacco Use Status: Former Tobacco user Quit Date: 2011 Tobacco use type: Cigarette Years Smoked: (former smoker - onset 15yo, 1ppd x 36yrs, 35pyh, quit 2011) e-Cigarette/Vaping Use: Never Used Second Hand Smoke Exposure: No service: No Current occupational status: retired Cognitive needs: No Hearing needs: No Vision needs: No Questionnaire Thrive Questionnaire Date Thrive assessed: 08/26/22 KRZYSZTOF-7 AMB Questionnaire KRZYSZTOF-7 Date KRZYSZTOF - 7 assessed: 08/26/22 Source: Developed by Drs. 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 Review of Systems Const All systems reviewed & are unremarkable except as noted in HPI and below Eyes Reports no additional complaints, Denies change in vision and Denies other visual disturbances Card Denies chest pain at rest, Denies chest pain with activity, Denies edema, Denies irregular heart rhythm, Denies claudication, Denies dyspnea, Denies dyspnea on exertion, Denies orthopnea, Denies paroxysmal nocturnal dyspnea and Denies slow heart rate Resp Denies cough, Denies dyspnea and Denies dyspnea on exertion GI Denies abdominal pain, Denies change in bowel habits, Denies excessive flatus, Denies nausea and Denies vomiting Denies urinary hesitancy, Denies urinary incontinence and Denies urinary urgency Musc Denies abnormal gait, Denies atrophy, Denies deformity and Denies limited range of motion Skin/Breast Denies bleeding lesions, Denies changing lesions and Denies rash Neuro Denies abnormal gait and Denies lack of coordination Physical exam (Primary Care) Vital Signs: Last Vital Signs BP 118/76 01/28/23 17:10 BMI result Body Mass Index 31.5 Tobacco/Smoking Status: Tobacco use Status Tobacco use date assessed 08/26/22 01/28/23 17:14 Patient Tobacco Use Status Former Tobacco user 01/28/23 17:14 Tobacco use type Cigarette 01/28/23 17:14 e-Cigarette/Vaping Use Never Used 01/28/23 17:14 Thrive Assessment: Date of Thrive Assessment Date Thrive assessed 08/26/22 01/28/23 17:14 Const Orientation/consciousness: patient oriented x3 HENMT Head: Yes normal to inspection, Yes normocephalic and Yes atraumatic Ears: external ears normal Eyes General: appearance normal, both eyes and all related structures Eyelids: Yes eyelids normal Conjunctivae: conjunctivae normal Neck Neck: Yes normal visual inspection and Yes supple Resp Effort & Inspection: normal respiratory effort Auscultation: clear to auscultation bilaterally Cardio Jugular venous distension: no JVD Rate: regular rate Rhythm: regular rhythm Heart sounds: S1 normal heart sound present and S2 normal heart sound present GI Inspection: Yes distended and Yes visible herniation Palpation (GI): Soft to palpation and nontender Auscultation: normal bowel sounds Skin General skin exam: no rashes or lesions noted Neuro General: patient oriented x3 and no focal motor deficits Extrem General: Yes full ROM Psych Appearance: grossly normal Results AMB Hemoglobin A1c AMB Hemoglobin A1c 7.2 % Last Edit by GEORGETTE Palma on 01/28/23 17:2 3 Results Reviewed Results Reviewed: Laboratory Last Values Hgb A1c (Clinic) 7.2 % (4.0-6.0) H 01/28/23 17:14 Assessment and Plan Assessment & Plan (1) Physical exam: Code(s): Z00.00 - Encounter for general adult medical examination without abnormal findings Plan: Repeat in a year (2) Diabetes: Comment: Hemoglobin A1c 6.7% and 2 hour fasting glucose tolerance test positive for diabetes. aeb Code(s): E11.9 - Type 2 diabetes mellitus without complications Plan: Start metformin. A1c goal is equal or less than 7% (3) COPD (chronic obstructive pulmonary disease): Comment: Moderate degree of chronic obstructive pulmonary disease, ., SEC TO PAST h/o SMOKING STABLE AT THIS TIME. TX : Incruse Ellipta one inh daily Montelukast 10 mg po daily Proair HFA 2 puffs Q 6 hours p.r.n.. Discussed with him and advised to use ProAir only if he has wheezing attacks at rest. He does not need to use it for exertional shortness of breath. Code(s): J44.9 - Chronic obstructive pulmonary disease, unspecified Qualifiers: COPD type: emphysema Emphysema type: panlobular Qualified Code(s): J43.1 - Panlobular emphysema Plan: Continue Incruse. (4) Mild major depression: Code(s): F32.0 - Major depressive disorder, single episode, mild Plan: Continue amitriptyline. Follow-up with psychiatry. (5) Ulcerative colitis: Code(s): K51.90 - Ulcerative colitis, unspecified, without complications Plan: Continue mesalamine. Follow up with Gastroenterology. Orders: Orders Comprehensive [place]. Panel Fast Today E11.9 - Type 2 diabetes mellitus without complications Lipid Panel Today E78.5 - Hyperlipidemia, unspecified Microalbumin, Random (w Creat) Today E11.9 - Type [address] without complications [address] abdomen wo IV con Today K43.9 - Ventral hernia without obstruction or gangrene AMB Hemoglobin A1c Today E11.9 - Type 2 diabetes mellitus without complications Referrals Senior Office Support Assistant [facility]osa Nutrition Referral E11.9 - Type 2 diabetes mellitus without complications Medications: New metformin 500 mg PO BID 90 days 180 tabs 1RF E11.9 - Type 2 diabetes mellitus without complications blood-glucose meter (FreeStyle Lite Meter kit) As directed 1 ea 0RF E11.9 - Type 2 diabetes mellitus without complications blood sugar diagnostic (FreeStyle Lite Strips) Use 1 test strip once a day 100 ea 3RF E11.9 - Type 2 diabetes mellitus without complications lancets (FreeStyle Lancets) Use 1 lancet once a day 100 ea 1RF E11.9 - Type 2 diabetes mellitus without complications [shower head] As directed 1 ea 0RF J43.1 - Panlobular emphysema Coding Level of Care Code Est Pt Prev Care 40-64y(02725) Diagnoses Physical exam Z00.00 Diabetes E11.9 COPD (chronic obstructive pulmonary disease) J43.1 COPD type: emphysema Emphysema type: panlobular Mild major depression F32.0 Ulcerative colitis K51.90 Time Spent (min) 36
== END 2023-01-28 18:09 | disposition home or self-care (01) ==
PROVIDERS: Visit Provider Internal Medicine
DX: Z00.00 Encounter for general adult medical examination without abnormal findings (principal); E11.9 Type 2 diabetes mellitus without complications; J43.1 Panlobular emphysema; F32.0 Major depressive disorder, single episode, mild; K51.90 Ulcerative colitis, unspecified, without complications
CPT/HCPCS: 83036; 99396

== ENCOUNTER 2023-03-10 09:13 | Outpatient (AMB) | payer OTHER, SELFPAY ==
--- NOTE | 2023-03-10 09:38 | A.OFFVIS_ITS ---
Intake VS Expanded 03/10/23 09:40 Height 5 ft 9 in Weight 215 lb 6.266 oz BMI 31.8 Intake Visit Reasons: DM Allergies Penicillins [PENICILLINS] Allergy (Unknown, Verified 01/28/23 17:43) ANAPHYLAXIS HPI Nutrition Presentation Details Pt presents for MNT for T2DM. Pt was referred by Dr. 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> 2/d A1c at 7.2% (01/2023) physical activity:sedentary ETOh/smoking---- UKW-Xukwafh-Sq.Jeor Equation Height 5 ft 9 in Weight 215 lb Resting Metabolic Rate 1769.58 Calculated Activity Level Sedentary Calories Needed to Maintain Weight 2123.50 Diagnosis Nutrition problem #1 food nutri know defi As related to (etiology) #1 diagnosis As evidenced by (sign/symptom) #1 knowledge deficit of diet Monitoring/Goals Nutrition problem monitoring HgbA1c Nutrition goal/outcome HgbA1c <7% in 3 months Learning/Education Readiness to learn good Stages of change action Educational materials provided Yes (meal planning) Most Recent Diabetes Results: Creatinine 0.97 mg/dL (0.5-1.4) 01/22/23 Blood Urea Nitrogen 15 mg/dL (9-16) 01/22/23 Sodium 140 mmol/L (135-145) 01/22/23 Potassium 4.1 mmol/L (3.3-5.1) 01/22/23 Chloride 102 mmol/L (96-108) 01/22/23 Carbon Dioxide 30 mmol/L (22-29) H 01/22/23 Calcium 9.6 mg/dL (8.4-10.2) 01/22/23 AST 88 U/L (5-37) H 01/22/23 ALT 169 U/L (0-40) H 01/22/23 Total Protein 6.9 g/dL (6.5-8.0) 01/22/23 Albumin 4.3 g/dL (3.5-5.0) 01/22/23 [facility] Medical History Personal history of nicotine dependence History of COVID-19 Obesity (BMI 30-39.9) Insomnia COPD (chronic obstructive pulmonary disease) Allergic rhinitis Ulcerative colitis Surgical History History of incisional hernia repair History of cervical spinal surgery History of colonoscopy History of appendectomy History of esophagogastroduodenoscopy (EGD) Family History Father Diabetes HTN (hypertension) Heart attack Mother Skin cancer HTN (hypertension) Diabetes Paternal Aunt Heart attack Sister Skin cancer Social History Household Members: Spouse Housing: Apartment Alcohol intake: never Patient Tobacco Use Status: Former Tobacco user Quit Date: 2011 Tobacco use type: Cigarette Years Smoked: (former smoker - onset 15yo, 1ppd x 36yrs, 35pyh, quit 2011) e-Cigarette/Vaping Use: Never Used Second Hand Smoke Exposure: No service: No Current occupational status: retired Cognitive needs: No Hearing needs: No Vision needs: No Assessment & Plan Assessment & Plan (1) Diabetes: Code(s): E11.9 - Type 2 diabetes mellitus without complications Qualifiers: Diabetes mellitus complication status: without complication Plan wt: 98 kg Est kcal needs as per MSJ: 2100 (40% carb, 30% protein/fat) Est fluid needs as per 25-30 ml/d: 2450 Est prot per day as per 1 g/kg bw: 98 Recommend fiber intake : 8-10 g per day and gradually increase to 25-28 g per day for women and 35-38 g for men or as tolerated Recommend sodium intake per day : less than 2000 mg Educated patient on: ( R = reviewed V = verbalizes understanding N/R = needs review N/A = not applicable * Food sources of carbohydrate, adequate serving sizes and its role in various health conditions: R ,V * Differences between complex carbohydrates a simple carbohydrates, role of fiber in diet: R * Differences between types of fats and role in diet (mono on saturated fat fatty acids, saturated fatty acids, trans fats): R * Food sources of sodium in salt and healthy modifications for heart health in kidney health: R * Healthy plate method concept: R * Physical activity: Benefits a precaution: R * Hypoglycemia protocol (rule of 15): R * Dietary prevention of Hyperglycemia: R Patient Instructions: Follow healthy plate method at dinner, reduce intake of fat in diet by choosing a fruit in place of pastries Eat slow, practice mindful eating see meal plan ideas Coding Level of Care Code Nutr Indiv Intake (88782) Diagnoses Diabetes E11.9 Diabetes mellitus complication status: without complication Time Spent (min) 40
[2023-03-10 09:40] VITALS: BMI 31.8
[2023-03-17 20:59] VITALS: BMI 31.7
== END 2023-03-10 10:27 | disposition home or self-care (01) ==
PROVIDERS: PCP Internal Medicine; Visit Provider Dietitian, Registered
DX: E11.9 Type 2 diabetes mellitus without complications (principal)

== ENCOUNTER → 2023-03-10 09:13 | Outpatient (BNVA) | payer OTHER, SELFPAY | PROVIDERS: PCP Internal Medicine; Visit Provider Dietitian, Registered | DX: E11.9 Type 2 diabetes mellitus without complications (principal); Z71.3 Dietary counseling and surveillance | CPT/HCPCS: 97802 ==

== ENCOUNTER 2023-03-11 13:22 | Outpatient (AMB) | payer OTHER, SELFPAY ==
--- NOTE | 2023-03-11 14:16 | A.OFFVIS_ITS ---
Intake Intake Visit Reasons: DM2 Sales And Service Representative Required: Yes Sales And Service Representative Language: Assistant Professor Of Archaeology Name: Maggy [facility] [place] Allergies Penicillins [PENICILLINS] Allergy (Unknown, Verified 01/28/23 17:43) ANAPHYLAXIS HPI Comprehensive Diabetes Asmnt Most Recent Diabetes Results: Creatinine 0.97 mg/dL (0.5-1.4) 01/22/23 Blood Urea Nitrogen 15 mg/dL (9-16) 01/22/23 Sodium 140 mmol/L (135-145) 01/22/23 Potassium 4.1 mmol/L (3.3-5.1) 01/22/23 Chloride 102 mmol/L (96-108) 01/22/23 Carbon Dioxide 30 mmol/L (22-29) H 01/22/23 Calcium 9.6 mg/dL (8.4-10.2) 01/22/23 AST 88 U/L (5-37) H 01/22/23 ALT 169 U/L (0-40) H 01/22/23 Total Protein 6.9 g/dL (6.5-8.0) 01/22/23 Albumin 4.3 g/dL (3.5-5.0) 01/22/23 [facility] Medical History Allergic rhinitis COPD (chronic obstructive pulmonary disease) History of COVID-19 Insomnia Obesity (BMI 30-39.9) Personal history of nicotine dependence Ulcerative colitis Surgical History History of appendectomy History of cervical spinal surgery History of colonoscopy History of esophagogastroduodenoscopy (EGD) History of incisional hernia repair Family History Father Diabetes HTN (hypertension) Heart attack Mother Skin cancer HTN (hypertension) Diabetes Paternal Aunt Heart attack Sister Skin cancer Social History Household Members: Spouse Housing: Apartment Alcohol intake: never Patient Tobacco Use Status: Former Tobacco user Quit Date: 2011 Tobacco use type: Cigarette Years Smoked: (former smoker - onset 15yo, 1ppd x 36yrs, 35pyh, quit 2011) e-Cigarette/Vaping Use: Never Used Second Hand Smoke Exposure: No service: No Current occupational status: retired Cognitive needs: No Hearing needs: No Vision needs: No Assessment & Plan Assessment & Plan (1) Diabetes: Code(s): E11.9 - Type 2 diabetes mellitus without complications Plan: Learning objectives: The patient was provided with verbal and written education on the following topics as outlined below. The patient met all learning objectives and was able to verbalize understanding and provide teach back of education topics discussed . The patient was provided with the opportunity to ask questions and all questions were answered. Patient Assessment Assess patient education level/literacy/barriers Patient questions/concerns, patient newly diagnosed with diabetes in January 2023 with A1c of 7.2%. Patient is using glucometer once a day Patient is on metformin 500 mg twice a day Patient reports he has changed his eating sent habits especially at night to reduce the carbohydrates in meals and snacks What is Diabetes? Pathophysiology How the body produces and uses insulin Identify type of DM Risk factors Signs of Diabetes Brief overview of Diabetes Management Monitoring blood sugar Following a meal plan Regular exercise Maintaining a healthy weight Taking medication as needed Members of the care team (PCP, RN, MA, RD, CDE, commissary representative) Blood glucose monitoring When/how often to test Target blood sugar ranges Patient checking glucose once a day Fast: 124-224 mg/dL Introduction to Nutrition Importance of healthy diet in managing DM Diet is personalized to individual preference Review patient?s regular diet/food preferences Who prepares meals/does food shopping/ Dining out?/ Barriers? How diet effects glucose Eating 3 balanced meals a day with small, healthy snacks between meals Review food groups Carbohydrates: What is a carbohydrate/Which food/food groups are considered carbohydrates Effect of carbohydrates on blood glucose Portion sizes Reading food labels Basic carb counting (if applicable per nursing assessment) Plate method Meal planning Recommendations: Follow plate method, consistent carbs and read nutritional labels. Smart Goal: Patient will keep carbohydrate at meals from 45-60 g per meal Educational Materials: The patient was provided with the following written educational materials: Planning Healthy Meals Handout Patient Response to instructions: Comprehension of Instructions: Fair Readiness to make changes: Contemplation How confident they feel about making changes: Positive Patient Instructions: Incluir actividad diaria regular. ADA recomienda 30 minutos de ejercicio 5 d?as a la semana. P?rdida de peso, hable con el PCP o el cardi?logo antes de comenzar un nuevo plan. Mida el nivel de az?car en la bulmaro seg?n las indicaciones; Ayuno y comida m?s radha de 2hpp. Observe las tendencias en los resultados. Utilice los resultados y eval?e c?mo los alimentos, la actividad f?ky y los medicamentos afectan los resultados de az?car en la bulmaro. Lleve el gluc?metro o CGM a la pr?xima visita. Conocer los medicamentos para la diabetes, gamino acci?n, los efectos secundarios, la eficacia, la toxicidad, la dosis prescrita, el momento y la frecuencia de administraci?n apropiados, el efecto de las dosis olvidadas y retrasadas y las instrucciones de almacenamiento, viaje y seguridad. Coding Level of Care Code Est Pt Level 1 (08081) Diagnoses Diabetes E11.9
== END 2023-03-11 14:21 | disposition home or self-care (01) ==
PROVIDERS: PCP Internal Medicine; Visit Provider Registered Nurse Diabetes Educator
DX: E11.9 Type 2 diabetes mellitus without complications (principal)

== ENCOUNTER → 2023-03-11 13:22 | Outpatient (BNVA) | payer OTHER, SELFPAY | PROVIDERS: PCP Internal Medicine; Visit Provider Registered Nurse Diabetes Educator | DX: E11.9 Type 2 diabetes mellitus without complications (principal) | CPT/HCPCS: 99211 ==

== ENCOUNTER 2023-03-12 12:51 | Outpatient (AMB) | payer OTHER, SELFPAY ==
--- NOTE | 2023-03-12 12:51 | A.OFFVIS_ITS ---
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 Accompanied by: Self / Same As Patient Allergies Penicillins [PENICILLINS] Allergy (Unknown, Verified 01/28/23 17:43) ANAPHYLAXIS Medication List - Last Reconciled 03/12/23 by Elly Peralta MD albuterol sulfate 2.5 mg inhalation Q6H PRN amitriptyline 25 mg PO BEDTIME [bath mat As directed] bisacodyl 10 mg (2 x 5 mg) PO BEDTIME blood sugar diagnostic ([employer] Ultra Test strips) Use 1 test strip once a day blood-glucose meter ([employer] Ultra2 Meter) As directed bupropion HCl 300 mg PO QAM clonazepam 1 mg PO 1 tab in pm and 1/2 tab Qam; dexlansoprazole 60 mg PO DAILY emollient combination no.32 (EpiCeram topical emulsion, extended release) topical escitalopram oxalate (Lexapro) 10 mg PO DAILY hydrocortisone 2.5% (Proctosol HC) 1 appl MD BID Incruse Ellipta 62.5 mcg/actuation (umeclidinium) 1 inh PO DAILY NS ketoconazole 2% appl topical DAILY PRN lancets ([employer] UltraSoft 2 Lancet) Use 1 lancet once a day mesalamine 2.4 grams (2 x 1.2 gram) PO DAILY metformin 500 mg PO BID 90 days montelukast TAKE 1 TABLET BY MOUTH DAILY [id number] mcg (Centrum Silver Men) 1 tab PO DAILY oxybutynin chloride ER 10 mg PO DAILY propranolol ER 80 mg PO BID ropinirole 1 mg PO BEDTIME [shower head As directed] simethicone (Gas Relief Extra Strength) 125 mg PO BID-QID tadalafil 20 mg PO ONCE PRN 30 days triamcinolone acetonide 0.1% 1 appl topical BID-TID Ventolin HFA 90 mcg/actuation (albuterol sulfate) 2 puffs PO QID PRN NS zolpidem 10 mg PO BEDTIME PRN HPI HPI Comments History of Present Illness Details Kali is a 62-year-old male who presents today to the office for a follow-up. 03/12/2023? He has seen Jc Nava on 09/05/2022 for erectile dysfunction, elevated PSA, and lower urinary tract symptoms. The tolterodine ER 2 mg was changed to tolterodine 4 mg at that time. He has been taking Oxybutynin 10 mg daily and states that works better than the tolteridine. He c/o's of redness around the penis I reviewed the US abdomen results from 08/12/2031 revealed right kidney was visualized, no hydronephrosis or parenchymal lesions noted. PSA 02/04/22- 2.94 Evaluation today?UA? Leukocytes: negative: blood: negative. Exam - balanitis Plan: Oxybutynin 10 mg. PSA screening was ordered. Lotrisone cream 1 % was prescribed. Apply antifungal cream to the foreskin and glans of the penis BID for a week and then PRN. Follow up with Dr. Fitzpatrick in 6 months. [facility] Medical History Personal history of nicotine dependence History of COVID-19 Obesity (BMI 30-39.9) Insomnia COPD (chronic obstructive pulmonary disease) Allergic rhinitis Ulcerative colitis Surgical History History of incisional hernia repair History of cervical spinal surgery History of colonoscopy History of appendectomy History of esophagogastroduodenoscopy (EGD) Family History Father Diabetes HTN (hypertension) Heart attack Mother Skin cancer HTN (hypertension) Diabetes Paternal Aunt Heart attack Sister Skin cancer Social History Household Members: Spouse Housing: Apartment Alcohol intake: never Patient Tobacco Use Status: Former Tobacco user Quit Date: 2011 Tobacco use type: Cigarette Years Smoked: (former smoker - onset 15yo, 1ppd x 36yrs, 35pyh, quit 2011) e-Cigarette/Vaping Use: Never Used Second Hand Smoke Exposure: No service: No Current occupational status: retired Cognitive needs: No Hearing needs: No Vision needs: No Review of Systems Const All systems reviewed & are unremarkable except as noted in HPI and below Reports no additional complaints Eyes Reports no additional complaints ENT Reports no additional complaints Card Denies dyspnea Resp Denies cough and Denies dyspnea GI Reports no additional complaints Musc Reports no additional complaints Skin/Breast Denies rash and Denies unusual bruising Neuro Reports no additional complaints Psych Reports no additional complaints Endo Reports no additional complaints Jamie/Lymph Reports no additional complaints Aller/Immun Reports no additional complaints Physical Exam Const General: healthy appearing, no acute distress and well developed Orientation/consciousness: patient oriented x3 HEENT Head: Yes normocephalic and Yes atraumatic Eyes Conjunctivae: conjunctivae normal Neck Neck: Yes normal visual inspection Chest Chest palpation & inspection: normal inspection of the chest Resp Effort & Inspection: normal respiratory effort Cardio Rate: regular rate GI Inspection: Yes normal to inspection Palpation (GI): Soft to palpation Other: mild erythema at glans, able to easily retract foreskin Penis: normal penis Scrotum: scrotum normal Skin General skin exam: no rashes or lesions noted Neuro General: patient oriented x3 Extrem General: No pedal edema Psych Appearance: grossly normal Affect: normal affect Office Procedures Post Void Residual Post Residual Void Post Void Residual (PVR): 20 [id number] Void Residual by ultrasound Results AMB Urinalysis, Automated UA Leukoctes 0 Angel/uL Last Edit by GEORGETTE Johnson on 03/12/23 13:11 UA Nitrite Negative Last Edit by GEORGETTE Johnson on 03/12/23 13:11 UA Urobilinogen 0.2 mg/dL Last Edit by GEORGETTE Johnson on 03/12/23 13:1 1 UA Protein 0 mg/dL Last Edit by GEORGETTE Johnson on 03/12/23 13:11 UA pH 6.0 Last Edit by GEORGETTE Johnson on 03/12/23 13:11 UA Blood 0 Orlin/uL Last Edit by John Gustafson Mary on 03/12/23 13:11 UA Specific [place] 1.015 Last Edit by John Gustafson, Mary on 03/12/23 13: 11 UA Ketone Negative Last Edit by John Gustafson, A on 03/12/23 13:11 UA Bilirubin 0 mg/dL Last Edit by John Gustafson, A on 03/12/23 13:11 UA Glucose 0 mg/dL Last Edit by John Gustafson, A on 03/12/23 13:11 Results Reviewed Results Reviewed: Laboratory Last Values Urine pH (Auto) 6.0 03/12/23 13:08 Specific [place] (Auto) 1.015 03/12/23 13:08 Urine Protein (Auto) 0 mg/dL 03/12/23 13:08 Glucose (UA)(Auto) 0 mg/dL 03/12/23 13:08 Urine Ketones (Auto) Negative 03/12/23 13:08 Urine Blood (Auto) 0 Orlin/uL 03/12/23 13:08 Urine Nitrite (Auto) Negative 03/12/23 13:08 Urine Bilirubin (Auto) 0 mg/dL 03/12/23 13:08 Urine Urobilinogen (Auto) 0.2 mg/dL 03/12/23 13:08 Leukocyte Esterase (Auto) 0 Angel/uL 03/12/23 13:08 Date of Service: 08/12/22 EXAMINATION: US ABDOMEN LIMITED CLINICAL INFORMATION:? Nonalcoholic steatohepatitis. COMPARISON:? Ultrasound abdomen complete 04/09/2022. Limited abdominal ultrasound 07/04/2021. CT abdomen and pelvis 07/11/2020. FINDINGS: PANCREAS: Limited. The visualized pancreatic head and body are normal in appearance. The remainder of the pancreas is obscured from visualization by the overlying bowel gas. LIVER: There is mild hepatomegaly, with a longitudinal span of 17.7 cm The liver contour is normal. There is diffuse increased liver parenchymal echogenicity, with pericholecystic sparing.? No focal hepatic lesion. There is no intrahepatic biliary duct dilatation seen. GALLBLADDER: Normal. The gallbladder is physiologically distended without evidence of stones, sludge, polyps, wall thickening or pericholecystic fluid. COMMON BILE DUCT: Normal in caliber measuring 0.3 cm in diameter.? RIGHT KIDNEY: Normal. No hydronephrosis. No renal calculi or focal parenchymal lesions. The kidney measures 11.7 cm in maximum dimension. FREE FLUID: None. IMPRESSION:? There is generalized increase in hepatic echotexture, consistent with fatty infiltration or hepatocellular disease. Characteristic pericholecystic sparing favors fatty infiltration. Provided history of GUZMAN noted. No focal hepatic mass or intrahepatic biliary dilatation is seen. Assessment & Plan Assessment & Plan (1) Screening PSA (prostate specific antigen): Code(s): Z12.5 - Encounter for screening for malignant neoplasm of prostate (2) Diabetes: Code(s): E11.9 - Type 2 diabetes mellitus without complications (3) Personal history of nicotine dependence: Comment: (former smoker - onset 15yo, 1ppd x 36yrs, 35pyh, quit 2011) Code(s): Z87.891 - Personal history of nicotine dependence (4) BPH w urinary obs/LUTS: Code(s): N40.1 - Benign prostatic hyperplasia with lower urinary tract symptoms; N13.8 - Other obstructive and reflux uropathy (5) Balanitis: Code(s): N48.1 - Balanitis Plan Refilled Oxybutynin 10 mg. PSA screening was ordered. Lotrisone cream 1 % was prescribed. Apply antifungal cream to the foreskin and glans of the penis BID for a week and then PRN. Follow up with Dr. Fitzpatrick in 6 months. Orders: Orders AMB Urinalysis Automated 03/12/23 Z13.9 - Encounter for screening, unspecified AMB Post Void Residual by ultrasound 03/12/23 N39.8 - Other specified disorders of urinary system PSA,Total (Free>4and<10) 03/12/23 Z12.5 - Encounter for screening for malignant neoplasm of prostate Medications: New clotrimazole-betamethasone 1-0.05 % apply bid for 7 - 10 days then prn 1 appl topical BID 45 grams 0RF oxybutynin chloride ER 10 mg PO DAILY 90 tabs 1RF Discontinued tolterodine ER Discontinued Reason: Patient no longer taking 4 mg PO DAILY 90 days 90 caps 1RF R32 - Unspecified urinary incontinence Patient Instructions: The patient had an opportunity to ask questions regarding treatment plan. All questions were answered. Imaging, Laboratory studies and physical exam results were discussed and reviewed in detail. No major barriers to understanding were identified. The patient expressed understanding and agreement with the above treatment plan.? ? ? The patient is aware they should contact our office by phone for worsening of their current condition or the appearance of new symptoms. Compliance is encouraged with any medications and followup testing that is ordered.? ? ? It is a privilege to be allowed the opportunity to participate in the urologic care of your patient. If you have any questions or concerns regarding treatment for the above conditions please do not hesitate to contact me. The office telephone contact is [phone].? ? ? This note is constructed in part using voice recognition software. While every effort has been made to ensure accuracy assayer helper errors may have been included.? ? ? Yours sincerely,? ? ? Elly Peralta MD? Coding Level of Care Code Est Pt Level 4 (91492) Diagnoses Screening PSA (prostate specific antigen) Z12.5 Diabetes E11.9 Personal history of nicotine dependence Z87.891 BPH w urinary obs/LUTS N40.1; N13.8 Balanitis N48.1 CPT Codes Post Residual Void - PVR CPT Code: 46848-[id number] Void Residual by ultrasound ([id number])
== END 2023-03-12 13:46 | disposition home or self-care (01) ==
PROVIDERS: PCP Internal Medicine; Visit Provider Urology
DX: Z12.5 Encounter for screening for malignant neoplasm of prostate (principal); E11.9 Type 2 diabetes mellitus without complications; Z87.891 Personal history of nicotine dependence; N40.1 Benign prostatic hyperplasia with lower urinary tract symptoms; N13.8 Other obstructive and reflux uropathy; N48.1 Balanitis
CPT/HCPCS: 99214

== ENCOUNTER → 2023-03-12 12:51 | Outpatient (BNVA) | payer OTHER, SELFPAY | PROVIDERS: Visit Provider Urology | DX: Z12.5 Encounter for screening for malignant neoplasm of prostate (principal); N40.1 Benign prostatic hyperplasia with lower urinary tract symptoms; N13.8 Other obstructive and reflux uropathy; N48.1 Balanitis; E11.9 Type 2 diabetes mellitus without complications; Z87.891 Personal history of nicotine dependence | CPT/HCPCS: 51798; 81003; 99212 ==

== ENCOUNTER 2023-04-17 11:23 | Outpatient (AMB) | payer OTHER, SELFPAY ==
[2023-04-17 11:54] VITALS: BMI 31.6
--- NOTE | 2023-04-17 11:54 | A.OFFVIS_ITS ---
Intake VS Expanded 04/17/23 11:54 Height 5 ft 9 in Weight 214 lb 1.102 oz BMI 31.6 Intake Visit Reasons: dm Allergies Penicillins [PENICILLINS] Allergy (Unknown, Verified 01/28/23 17:43) ANAPHYLAXIS HPI Nutrition Presentation Details Pt presents for MNT f/u for T2DM Pt brings glucometer, his 14 d bg is at 130 mg/dl , lowest BG at 98- highest BG at 156 mg/d Pt reports working on diet modifications , reducing on sugars/carb, has noticed improvement in glucose food frequency vegetables: 1 serving/day, choosing bar with 10 g of fiber daily fruits/d: 0-1/d fish : 2 x/wk fluids 56 oz/d protein foods: 64 oz/d physical activity: sedentary , has stationary bike at home Most Recent Diabetes Results: Creatinine 0.97 mg/dL (0.5-1.4) 01/22/23 Blood Urea Nitrogen 15 mg/dL (9-16) 01/22/23 Sodium 140 mmol/L (135-145) 01/22/23 Potassium 4.1 mmol/L (3.3-5.1) 01/22/23 Chloride 102 mmol/L (96-108) 01/22/23 Carbon Dioxide 30 mmol/L (22-29) H 01/22/23 Calcium 9.6 mg/dL (8.4-10.2) 01/22/23 AST 88 U/L (5-37) H 01/22/23 ALT 169 U/L (0-40) H 01/22/23 Total Protein 6.9 g/dL (6.5-8.0) 01/22/23 Albumin 4.3 g/dL (3.5-5.0) 01/22/23 [facility] Medical History Personal history of nicotine dependence History of COVID-19 Obesity (BMI 30-39.9) Insomnia COPD (chronic obstructive pulmonary disease) Allergic rhinitis Ulcerative colitis Surgical History History of incisional hernia repair History of cervical spinal surgery History of colonoscopy History of appendectomy History of esophagogastroduodenoscopy (EGD) Family History Father Diabetes HTN (hypertension) Heart attack Mother Skin cancer HTN (hypertension) Diabetes Paternal Aunt Heart attack Sister Skin cancer Social History Household Members: Spouse Housing: Apartment Alcohol intake: never Patient Tobacco Use Status: Former Tobacco user Quit Date: 2011 Tobacco use type: Cigarette Years Smoked: (former smoker - onset 15yo, 1ppd x 36yrs, 35pyh, quit 2011) e-Cigarette/Vaping Use: Never Used Second Hand Smoke Exposure: No Advance Directives: No Advance Directives Information Provided: No service: No Current occupational status: retired Cognitive needs: No Hearing needs: No Vision needs: No Assessment & Plan Assessment & Plan (1) Diabetes: Code(s): E11.9 - Type 2 diabetes mellitus without complications Qualifiers: Diabetes mellitus complication status: without complication Plan wt: 98 kg (97 kg 03/2023) Est kcal needs as per MSJ: 2100 (40% carb, 30% protein/fat) Est fluid needs as per 25-30 ml/d: 2450 Est prot per day as per 1 g/kg bw: 98 Recommend fiber intake : 8-10 g per day and gradually increase to 25-28 g per day for women and 35-38 g for men or as tolerated Recommend sodium intake per day : less than 2000 mg Educated patient on: ( R = reviewed V = verbalizes understanding N/R = needs review N/A = not applicable * Food sources of carbohydrate, adequate serving sizes and its role in various health conditions: R ,V * Differences between complex carbohydrates a simple carbohydrates, role of fiber in diet: R * Differences between types of fats and role in diet (mono on saturated fat fatty acids, saturated fatty acids, trans fats): R * Food sources of sodium in salt and healthy modifications for heart health in kidney health: R * Healthy plate method concept: R * Physical activity: Benefits a precaution: R * Hypoglycemia protocol (rule of 15): R * Dietary prevention of Hyperglycemia: R Patient Instructions: Include omega 3 fatty acids (fish, nuts, seeds,) Include fiber rich foods (beans, legumes,spinach, vegetables Keep hydrated by consuming water with meals/snacks and whenever feeling thirsty Coding Level of Care Code Nutr Indiv Subseq (98943) Diagnoses Diabetes E11.9 Diabetes mellitus complication status: without complication Time Spent (min) 30
== END 2023-04-17 12:28 | disposition home or self-care (01) ==
PROVIDERS: PCP Internal Medicine; Visit Provider Dietitian, Registered
DX: E11.9 Type 2 diabetes mellitus without complications (principal)

== ENCOUNTER → 2023-04-17 11:23 | Outpatient (BNVA) | payer OTHER, SELFPAY | PROVIDERS: PCP Internal Medicine; Visit Provider Dietitian, Registered | DX: E11.9 Type 2 diabetes mellitus without complications (principal) | CPT/HCPCS: 97803 ==

== ENCOUNTER 2023-04-21 15:40 | Emergency (ER) | payer OTHER, SELFPAY ==
[2023-04-21 15:42] VITALS: BP 122/80; PULSE 67; RESP 20; TEMP 36.2; O2SAT 97; BMI 31.5
--- NOTE | 2023-04-21 15:42 | ED.GENADULT ---
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 NO fevers, n/v. He tried to take care of it himself but he cannot MD complaint: ingrown toenail Onset (ago): year(s) Location: right and lower extremity Radiation: non-radiation Severity: moderate Quality: aching Pain Consistency: intermittent Relieving factors: rest Exacerbating factors: movement Associated symptoms: other (redness, swelling, red dot) Treatments prior to arrival: none Related Data Home Medications Medication Instructions Recorded Confirmed escitalopram oxalate 10 mg tablet 10 mg PO DAILY 01/18/21 03/12/23 (Lexapro) runxrviu-dv-axhes 300 mcg-K 60 1 tab PO DAILY 01/18/21 03/12/23 mcg-lycop 600 mcg-lutein 300 mcg tablet (Centrum Silver Men) zolpidem 10 mg tablet 10 mg PO BEDTIME PRN 01/18/21 03/12/23 bupropion HCl 300 mg 24 hr tablet, 300 mg PO QAM 08/13/21 03/12/23 extended release emollient combination no.32 topical 08/13/21 03/12/23 (EpiCeram topical emulsion, extended release) propranolol 80 mg capsule,24 80 mg PO BID 08/13/21 03/12/23 hr,extended release triamcinolone acetonide 0.1 % 1 appl topical BID-TID 08/13/21 03/12/23 topical cream ketoconazole 2 % topical cream appl topical DAILY PRN 01/14/22 03/12/23 clonazepam 1 mg tablet 1 mg PO .COMPLEX 01/21/22 03/12/23 albuterol sulfate 2.5 mg/3 mL 2.5 mg inhalation Q6H PRN 05/16/22 03/12/23 (0.083 %) solution for nebulization amitriptyline 25 mg tablet 25 mg PO BEDTIME 07/05/22 03/12/23 Previous Rx's Medication Instructions Recorded hydrocortisone 2.5 % topical cream 1 appl ME BID hemorrhoids #30 grams 08/13/21 with perineal applicator (Proctosol HC) ropinirole 1 mg tablet 1 mg PO BEDTIME #30 tabs 12/19/21 Ventolin HFA 90 mcg/actuation 2 puff PO QID PRN for wheezing #18 06/10/22 aerosol inhaler (albuterol sulfate) grams tadalafil 20 mg tablet 20 mg PO ONCE PRN sexual activity 07/05/22 30 days #30 tabs bath mat #1 ea 09/06/22 bisacodyl 5 mg tablet,delayed 10 mg (2 x 5 mg) PO BEDTIME #60 10/08/22 release tabs dexlansoprazole 60 mg 60 mg PO DAILY #30 caps 10/08/22 capsule,biphase delayed release mesalamine 1.2 gram tablet,delayed 2.4 g (2 x 1.2 gram) PO DAILY #180 10/08/22 release tabs simethicone 125 mg capsule (Gas 125 mg PO BID-QID #120 caps 10/08/22 Relief Extra Strength) metformin 500 mg tablet 500 mg PO BID 90 days #180 tabs 01/28/23 shower head #1 ea 01/28/23 blood sugar diagnostic (OneTouch #100 ea 01/29/23 Ultra Test strips) blood-glucose meter (OneTouch #1 ea 01/29/23 Ultra2 Meter) lancets 30 gauge (OneTouch #100 ea 01/29/23 UltraSoft 2 Lancet) clotrimazole-betamethasone 1 1 appl topical BID #45 grams 03/12/23 %-0.05 % topical cream oxybutynin chloride 10 mg 10 mg PO DAILY #90 tabs 03/12/23 tablet,extended release 24 hr Incruse Ellipta 62.5 mcg/actuation 1 inh PO DAILY #30 ea 03/24/23 powder for inhalation (umeclidinium) montelukast 10 mg tablet 10 mg PO DAILY #90 tabs 03/24/23 doxycycline hyclate 100 mg capsule 100 mg PO BID 7 days #14 caps 04/21/23 Allergies Allergy/AdvReac Type Severity Reaction Status Date / Time Penicillins [PENICILLINS] Allergy Unknown ANAPHYLAXIS Verified 01/28/23 17:43 Review of Systems Review of Systems: Constitutional : No Fever, No Chills Cardiovascular : No Chest Pain, No SOB Respiratory : No Cough, No Sputum Gastrointestinal : No Nausea, No Vomiting, No Diarrhea, No abdominal Pain Genitourinary : No Dysuria, No Hematuria Musculoskeletal : No joint pain, No Myalgias, No Joint Swelling, pos toe pain Skin : No Skin Lesions, positive skin rash Neuro : No Weakness, No Numbness, No Headache Psych : No Anxiety, No Depression All other systems reviewed and are negative [facility] Past Medical History Source: old records reviewed Medical History Personal history of nicotine dependence History of COVID-19 Obesity (BMI 30-39.9) Insomnia COPD (chronic obstructive pulmonary disease) Allergic rhinitis Ulcerative colitis Surgical History History of incisional hernia repair History of cervical spinal surgery History of colonoscopy History of appendectomy History of esophagogastroduodenoscopy (EGD) Family History Family History Father Diabetes HTN (hypertension) Heart attack Mother Skin cancer HTN (hypertension) Diabetes Paternal Aunt Heart attack Sister Skin cancer Social History Social History Household Members: Spouse Housing: Apartment Alcohol intake: never Patient Tobacco Use Status: Former Tobacco user Quit Date: 2011 Tobacco use type: Cigarette Years Smoked: (former smoker - onset 15yo, 1ppd x 36yrs, 35pyh, quit 2011) e-Cigarette/Vaping Use: Never Used Second Hand Smoke Exposure: No Advance Directives: No Advance Directives Information Provided: No service: No Current occupational status: retired Cognitive needs: No Hearing needs: No Vision needs: No Physical Exam ED Vital Signs: Vital Signs - 24 hr 04/21/23 15:42 Temperature 97.2 F Pulse Rate 67 Respiratory Rate 20 Blood Pressure 122/80 Pulse Oximetry 97 Oxygen Delivery Method Room Air BMI result Body Mass Index 31.5 Appearance: Alert. Oriented X3. No acute distress. Eyes: Pupils equal, round and reactive to light. ENT: Pharynx normal. Neck: Normal inspection. Neck supple. CVS: Pulses normal. Respiratory: No respiratory distress. Abdomen: atraumatic Skin: Skin warm and dry. Normal skin color. Normal skin turgor. Extremities: No lower extremity edema. R great toe thickened yellow toenail R proximal lateral nail fold ingrown toenail with induration and ttp has fluctuance and erythema no purulence there is a small red hematoma noted at from the nail itself. Neuro: Oriented X 3. No motor deficit. No sensory deficit. Course Course Course Narrative: RME performed by Karen Clement PA-C. Patient is a 62 year old assigned male at presenting to the emergency department with right great toe pain. Patient states that he is a diabetic and is having issues with an overgrown right great toe nail. Patient placed back in the waiting room pending room availability. 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 He is not toxic, no systemic symptoms. stable for outpatient management Differential Diagnosis Differential Diagnoses: The differential diagnosis associated with the presentation includes ingrown toenail, paronychia External Record Review External record reviewed: Inpatient record Prescription Management I considered prescription management with: Antibiotic Chronic Conditions Patient?s care impacted by: Diabetes Discharge Plan Discharge Clinical Impression: Ingrowing toenail with infection Patient Disposition: Home, Self-Care Instructions: Ingrown Nail (ED) Additional Instructions: call the trade sales assistant tomorrow. return for increased redness, pain, swelling, fevers, vomiting, worsening pain or any other concerns. can soak area with warm water and epsom salt twice a day. On doxycycline, do not take pills immediately before going to bed and swallow pills with plenty of water. Avoid direct sunlight, iron, antacids, and Pepto Bismol. Call your provider if you develop new ringing in your ears, new problems hearing, dizziness, difficulty swallowing, rash, abdominal discomfort, nausea, or diarrhea.? addison mancia?logo ma?tito. Regrese si aumenta el enrojecimiento, dolor, hinchaz?n, fiebre, v?mitos, empeoramiento del dolor o cualquier otra inquietud. Puede remojar el ?krystle con agua tibia y kailey de [place] dos veces al d?a. Prescriptions: New doxycycline hyclate 100 mg capsule 100 mg PO BID 7 Days Qty: 14 0RF No Action ropinirole 1 mg tablet 1 mg PO BEDTIME Qty: 30 0RF albuterol sulfate [Ventolin HFA] 90 mcg/actuation HFA aerosol inhaler 2 puff PO QID PRN (Reason: for wheezing) Qty: 18 0RF (DME) bath mat See Rx Instructions .Route .MEDSUPPLY Qty: 1 0RF Rx Instructions: As directed (DME) blood-glucose meter [OneTouch Ultra2 Meter] Misc See Rx Instructions .Route Qty: 1 0RF Rx Instructions: As directed (DME) OneTouch Ultra Test Strip See Rx Instructions .Route Qty: 100 1RF Rx Instructions: Use 1 test strip once a day (DME) lancets [OneTouch UltraSoft 2 Lancet] 30 gauge misc See Rx Instructions .Route Qty: 100 1RF Rx Instructions: Use 1 lancet once a day montelukast 10 mg tablet 10 mg PO DAILY Qty: 90 0RF Incruse Ellipta 62.5 mcg/actuation blister with device 1 inh PO DAILY Qty: 30 3RF zolpidem 10 mg tablet 10 mg PO BEDTIME PRN escitalopram oxalate [Lexapro] 10 mg tablet 10 mg PO DAILY Centrum Silver Men 300-600-300 mcg tablet 1 tab PO DAILY clonazepam 1 mg tablet 1 mg PO .COMPLEX Rx Instructions: 1 mg PO 1 tab in pm and 1/2 tab Qam; metformin 500 mg tablet 500 mg PO BID 90 Days Qty: 180 1RF (DME) shower head See Rx Instructions .Route .MEDSUPPLY Qty: 1 0RF Rx Instructions: As directed amitriptyline 25 mg tablet 25 mg PO BEDTIME tadalafil 20 mg tablet 20 mg PO ONCE PRN (Reason: sexual activity) 30 Days Qty: 30 0RF Rx Instructions: may use up to 1.5 tabs ketoconazole 2 % cream topical DAILY PRN albuterol sulfate 2.5 mg /3 mL (0.083 %) solution for nebulization 2.5 mg inhalation Q6H PRN simethicone [Gas Relief Extra Strength] 125 mg capsule 125 mg PO BID-QID Qty: 120 6RF mesalamine 1.2 gram tablet,delayed release (DR/EC) 2.4 g PO DAILY Qty: 180 6RF dexlansoprazole 60 mg capsule,biphase delayed releas 60 mg PO DAILY Qty: 30 6RF bisacodyl 5 mg tablet,delayed release (DR/EC) 10 mg PO BEDTIME Qty: 60 6RF propranolol 80 mg capsule,extended release 24 hr 80 mg PO BID bupropion HCl 300 mg tablet extended release 24 hr 300 mg PO QAM triamcinolone acetonide 0.1 % cream 1 appl topical BID-TID EpiCeram Emulsion, Extended Release topical hydrocortisone [Proctosol HC] 2.5 % cream with perineal applicator 1 appl ME BID Qty: 30 6RF oxybutynin chloride 10 mg tablet extended release 24hr 10 mg PO DAILY Qty: 90 1RF clotrimazole-betamethasone 1-0.05 % cream 1 appl topical BID Qty: 45 0RF Rx Instructions: apply bid for 7 - 10 days then prn Print Language: Kenyan
[2023-04-21] MEDS: Doxycycline Monohydrate 100 MG CAPSULE PO (18:28)
--- NOTE | 2023-04-21 18:33 | PC.NURSE ---
at bedside, nail removed, PO antitiobitics given, able to ambulate out independently in agreement with d./c plan
== END 2023-04-21 18:33 | disposition home or self-care (01) ==
PROVIDERS: Emergency Provider Emergency Medicine; PCP Internal Medicine
DX: L60.0 Ingrowing nail (principal)
CPT/HCPCS: 11750; 99282; 99283; 99284

== ENCOUNTER 2023-04-25 15:44 | Outpatient (REF) | payer OTHER, SELFPAY ==
--- NOTE | ~2023-04-25 | CT_ITS ---
EXAMINATION: CT ABDOMEN WITHOUT CONTRAST CLINICAL INFORMATION: Ventral hernia without obstruction or gangrene COMPARISON: Ultrasound abdomen from 04/29/2023, CT lung screening from 11/15/2022 TECHNIQUE: Contiguous axial thin section helical images of the abdomen were performed without contrast. The data set was reformatted in the coronal and sagittal planes and reviewed on an independent workstation. This CT examination was performed using dose optimization techniques as appropriate, variously including the following: *Automated exposure control *Adjustment of mA and/or kV according to patient size (this includes techniques or standardized protocols for targeted exams where dose is matched to indication/reason for exam; i.e. extremities or head) *Use of iterative reconstruction technique DLP: 348 mGy-cm FINDINGS: LUNG BASES: Atelectasis versus scarring along the right major fissure. No pneumothorax. No large pleural effusion. LIVER, GALLBLADDER, AND BILIARY TREE: The liver is normal in size and shape. Decreased hepatic attenuation suggesting hepatic steatosis with regions of focal fatty sparing adjacent to gallbladder fossa. No focal hepatic lesion or biliary ductal dilatation is present. The gallbladder is unremarkable with no evidence of radiopaque gallstones, gallbladder wall thickening, or obvious pericholecystic inflammatory changes. PANCREAS: Unremarkable. SPLEEN: Unremarkable. ADRENAL GLANDS: Unremarkable. KIDNEYS AND URETERS: The kidneys are normal in size, shape, and attenuation. No hydronephrosis, hydroureter, or calculi seen. No perinephric stranding. GASTROINTESTINAL TRACT: The small and large bowel are unremarkable. The appendix is not visualized. ABDOMINAL WALL: Diastases rectae. Partial visualization of hernia mesh along the anterior abdominal wall. Postsurgical changes along the anterior abdominal wall with a few focal defects are noted in the midline anterior abdominal wall cranial to the hernia mesh one of which measures approximately 2.4 cm in its opening and containing a nonspecific hypodense focus measuring 2.2 cm and mesentery (series 4, image 399). LYMPH NODES: Normal. VASCULAR: Unremarkable. OSSEOUS STRUCTURES: Multilevel degenerative changes of the thoracolumbar spine. Degenerative arthropathy of the right sacroiliac joint. CT/CT abdomen wo IV con IMPRESSION: 1. The entirety of the craniocaudad dimension of the abdominal wall is not captured limiting evaluation. Diastases rectae. Partial visualization of hernia mesh along the anterior abdominal wall. Postsurgical changes along the anterior abdominal wall with a few focal defects noted in the midline anterior abdominal wall cranial to the hernia mesh one of which measures approximately 2.4 cm in its opening and containing a nonspecific hypodense focus measuring 2.2 cm and mesentery. 2. Decreased hepatic attenuation suggesting hepatic steatosis with regions of focal fatty sparing adjacent to gallbladder fossa.
== END 2023-04-25 15:45 | disposition home or self-care (01) ==
LOC: HO.CT 15:44
PROVIDERS: PCP Internal Medicine; Visit Provider Internal Medicine
DX: K43.9 Ventral hernia without obstruction or gangrene (principal)
CPT/HCPCS: 74150

== ENCOUNTER 2023-04-29 18:16 | Emergency (ER) | payer OTHER, SELFPAY ==
--- NOTE | ~2023-04-29 | XR_ITS ---
EXAMINATION: XR CHEST CLINICAL INFORMATION: Chest pain and shortness of breath COMPARISON: 08/08/2021 TECHNIQUE: 2 views of the chest were obtained. FINDINGS: No significant abnormality is noted involving the heart, lungs, mediastinum, bony thorax or soft tissues. ACDF hardware is noted. XR/XR chest 2V IMPRESSION: Unremarkable examination.
--- NOTE | ~2023-04-29 | US_ITS ---
EXAMINATION: US ABDOMEN LIMITED CLINICAL INFORMATION: Right upper quadrant/epigastric pain. COMPARISON: 04/25/2023 CT scan TECHNIQUE: Real-time imaging of the right upper quadrant abdominal viscera. FINDINGS: PANCREAS: Visualized portions of pancreas unremarkable although portions of the head and tail are obscured by overlying bowel gas LIVER: No acute abnormality seen The liver is normal in size. The liver contour is normal. Diffusely increased hepatic echotexture suggesting underlying fatty infiltration No focal hepatic lesion. There is no intrahepatic biliary duct dilatation seen. GALLBLADDER: Normal. The gallbladder is physiologically distended without evidence of stones, sludge, polyps, wall thickening or pericholecystic fluid. COMMON BILE DUCT: Normal in caliber measuring 0.4 cm in diameter. RIGHT KIDNEY: Normal. No hydronephrosis. No renal calculi or focal parenchymal lesions. The kidney measures 11.1 cm in maximum dimension. FREE FLUID: None. US/US abdomen limited IMPRESSION: Diffusely increased hepatic echotexture suggesting underlying fatty infiltration but no focal hepatic lesion or biliary ductal dilatation.
[2023-04-29 18:18] VITALS: BP 117/73; PULSE 71; RESP 18; TEMP 35.7; O2SAT 99; BMI 31.2
--- NOTE | 2023-04-29 18:20 | ED.CHESTPAIN ---
HPI - Chest Pain General Chief Complaint: General Medical Stated Complaint: Rib pain Time Seen by Provider: 04/29/23 23:19 Source: patient, RN notes reviewed and old records reviewed Mode of arrival: ambulatory Limitations: no limitations History of Present Illness HPI narrative: 62-year-old male with past medical history significant for diabetes, COPD, obesity, ulcerative colitis, Guzman, GERD, constipation, inguinal hernia presents for evaluation of right upper abdominal pain/rib pain He reports his pain started yesterday and is worse with changing positions, deep breathing Denies any nausea vomiting He states that a frequent has abdominal pain related ?gas and bloating. He does not feel constipated as his last bowel movement was earlier today and was normal for him Denies any cough, shortness of breath, fevers, chills This patient reports that he always has pain in that area but over the last week it has been worse Patient had a CT scan of the abdomen pelvis 4 days ago that was ordered by his primary doctor Related Data Home Medications Medication Instructions Recorded Confirmed escitalopram oxalate 10 mg tablet 10 mg PO DAILY 01/18/21 03/12/23 (Lexapro) [id number] 300 mcg-K 60 1 tab PO DAILY 01/18/21 03/12/23 mcg-lycop 600 mcg-lutein 300 mcg tablet (Centrum Silver Men) zolpidem 10 mg tablet 10 mg PO BEDTIME PRN 01/18/21 03/12/23 bupropion HCl 300 mg 24 hr tablet, 300 mg PO QAM 08/13/21 03/12/23 extended release emollient combination no.32 topical 08/13/21 03/12/23 (EpiCeram topical emulsion, extended release) propranolol 80 mg capsule,24 80 mg PO BID 08/13/21 03/12/23 hr,extended release triamcinolone acetonide 0.1 % 1 appl topical BID-TID 08/13/21 03/12/23 topical cream ketoconazole 2 % topical cream appl topical DAILY PRN 01/14/22 03/12/23 clonazepam 1 mg tablet 1 mg PO .COMPLEX 01/21/22 03/12/23 albuterol sulfate 2.5 mg/3 mL 2.5 mg inhalation Q6H PRN 05/16/22 03/12/23 (0.083 %) solution for nebulization amitriptyline 25 mg tablet 25 mg PO BEDTIME 07/05/22 03/12/23 Previous Rx's Medication Instructions Recorded hydrocortisone 2.5 % topical cream 1 appl WA BID hemorrhoids #30 grams 08/13/21 with perineal applicator (Proctosol HC) ropinirole 1 mg tablet 1 mg PO BEDTIME #30 tabs 12/19/21 Ventolin HFA 90 mcg/actuation 2 puff PO QID PRN for wheezing #18 06/10/22 aerosol inhaler (albuterol sulfate) grams tadalafil 20 mg tablet 20 mg PO ONCE PRN sexual activity 07/05/22 30 days #30 tabs bath mat #1 ea 09/06/22 bisacodyl 5 mg tablet,delayed 10 mg (2 x 5 mg) PO BEDTIME #60 10/08/22 release tabs dexlansoprazole 60 mg 60 mg PO DAILY #30 caps 10/08/22 capsule,biphase delayed release mesalamine 1.2 gram tablet,delayed 2.4 g (2 x 1.2 gram) PO DAILY #180 10/08/22 release tabs simethicone 125 mg capsule (Gas 125 mg PO BID-QID #120 caps 10/08/22 Relief Extra Strength) metformin 500 mg tablet 500 mg PO BID 90 days #180 tabs 01/28/23 shower head #1 ea 01/28/23 blood sugar diagnostic (OneTouch #100 ea 01/29/23 Ultra Test strips) blood-glucose meter (OneTouch #1 ea 01/29/23 Ultra2 Meter) lancets 30 gauge (OneTouch #100 ea 01/29/23 UltraSoft 2 Lancet) clotrimazole-betamethasone 1 1 appl topical BID #45 grams 03/12/23 %-0.05 % topical cream oxybutynin chloride 10 mg 10 mg PO DAILY #90 tabs 03/12/23 tablet,extended release 24 hr Incruse Ellipta 62.5 mcg/actuation 1 inh PO DAILY #30 ea 03/24/23 powder for inhalation (umeclidinium) montelukast 10 mg tablet 10 mg PO DAILY #90 tabs 03/24/23 doxycycline hyclate 100 mg capsule 100 mg PO BID 7 days #14 caps 04/21/23 cyclobenzaprine 10 mg tablet 10 mg PO TID PRN muscle spasm #20 04/30/23 tabs Allergies Allergy/AdvReac Type Severity Reaction Status Date / Time Penicillins [PENICILLINS] Allergy Unknown ANAPHYLAXIS Verified 01/28/23 17:43 Review of Systems Constitutional: Constitutional: Denies chills and Denies fever(s) Eyes: Eyes: Denies blurry vision Cardiovascular: Cardiovascular: Reports chest pain (Chest wall pain on the right) and Denies dyspnea Respiratory: Respiratory: Denies cough and Denies dyspnea Gastrointestinal: Gastrointestinal: Reports abdominal pain, Denies nausea and Denies vomiting Musculoskeletal: Musculoskeletal: Denies back pain Integumentary/Breasts: Skin/Breast: Denies rash PMFSH Past Medical History Medical History Personal history of nicotine dependence History of COVID-19 Obesity (BMI 30-39.9) Insomnia COPD (chronic obstructive pulmonary disease) Allergic rhinitis Ulcerative colitis Surgical History History of incisional hernia repair History of cervical spinal surgery History of colonoscopy History of appendectomy History of esophagogastroduodenoscopy (EGD) Family History Family History Father Diabetes HTN (hypertension) Heart attack Mother Skin cancer HTN (hypertension) Diabetes Paternal Aunt Heart attack Sister Skin cancer Social History Social History Household Members: Spouse Housing: Apartment Alcohol intake: never Patient Tobacco Use Status: Former Tobacco user Quit Date: 2011 Tobacco use type: Cigarette Years Smoked: (former smoker - onset 15yo, 1ppd x 36yrs, 35pyh, quit 2011) e-Cigarette/Vaping Use: Never Used Second Hand Smoke Exposure: No Advance Directives: No Advance Directives Information Provided: No service: No Current occupational status: retired Cognitive needs: No Hearing needs: No Vision needs: No Physical Exam Vital Signs: Vital Signs: Last Vital Signs Temp 98.7 F 04/29/23 23:16 Pulse 74 04/29/23 23:16 Resp 16 04/29/23 23:16 BP 129/81 04/29/23 23:16 Pulse Ox 94 04/29/23 23:16 O2 Del Method Room Air 04/29/23 23:16 BMI result Body Mass Index 31.2 Const: General: healthy appearing, comfortable, no acute distress, alert and awake Nutritional Appearance: well nourished Orientation/consciousness: patient oriented x3 HEENT: Head: Yes normocephalic and Yes atraumatic Eyes: Eyelids: Yes eyelids normal Conjunctivae: conjunctivae normal Sclerae: sclerae normal Corneas: corneas normal Pupils: Equal, round and reactive pupils present EOM: EOMs intact bilaterally Neck: Neck: Yes full ROM Chest: Other: Patient has some tenderness to the right lateral chest wall and knee anterior axillary line the level of the 7th and 8th ribs. Resp: Effort & Inspection: normal respiratory effort, able to speak in complete sentences and not labored Cardio: Rate: regular rate Rhythm: regular rhythm GI: Palpation (GI): Soft to palpation, not firm, Tenderness to palpation present (GI) in the RUQ, no guarding and not rigid Skin: General skin exam: elasticity normal Neuro: General: patient oriented x3 Cranial nerves: Yes Equal, round and reactive pupils present and Yes Bilaterally intact EOM present Cognition (Neuro): normal cognition Course Course Course Narrative: RME: 62yo M w/PMHx COPD, UC, GUZMAN, GERD, HTN, DM, c/o CP since waking yesterday morning worse with eating, breathing and movement. +SOB. denies taking AC VSS, +reproducible R lower rib and RUQ ttp. No rash/Zoster EKG, Labs, CXR, Abd US, UA ordered Full HPI, ROS and PE to be performed by primary ED provider. Medical Decision Making Medical Decision Making [facility] Narrative: 62-year-old male with past medical history significant for GERD, IBS chronic constipation and abdominal pain presents for evaluation of right upper quadrant abdominal pain and right lower chest wall pain. His pain is reproducible on exam palpation. His pain is reproducible after eating. He has no nausea or vomiting. He continues to have bowel movements all have a low suspicion for obstruction. I did review his CT scan that was done as an outpatient a few days ago and does not appear to show obstructive pattern. Ultrasound was gallbladder rules out acute cholecystitis and there were no gallstones visible. Symptoms most likely related to his chronic abdominal issues. Given that he is quite tender on exam and no right chest wall as well will treat with Flexeril but the patient's abdominal pain is most likely related to GERD/IBS. Will treat with a GI cocktail. Differential Diagnosis Differential Diagnoses: The differential diagnosis associated with the presentation includes Chronic abdominal pain Cholecystitis Acute cholelithiasis Peptic ulcer disease GERD Costochondritis ACS less likely Lab Data MDM Lab Attestation statement: I reviewed the patient's lab results. No leukocytosis or anemia. No significant electrolyte abnormalities. Patient's renal function is significant for a total bilirubin just barely above normal at 1.1 and ALT of 60. This is decreased from the her most recent LFTs. Patient's troponin is undetectable. BNP is negative. 04/29/23 18:45 04/29/23 18:46 Labs: Lab Results 04/29/23 04/29/23 Range/Units 18:45 18:46 WBC 8.7 (4.8-10.8) X10*3/uL RBC 5.35 (4.60-5.80) X10*6/uL Hgb 16.4 (14.0-18.0) g/dl Hct 47.3 (42.0-52.0) % MCV 88.4 (80.0-98.0) fL MCH 30.7 (27.0-33.0) pg MCHC 34.7 (31.0-36.0) g/dl RDW 13.2 (11.0-16.0) % Plt Count 198 (160-400) X10*3/uL MPV 10.9 (9.4-12.4) fL Immature Gran % (Auto) 0.2 (0.0-0.4) % Neut % (Auto) 68.9 (45-73) % Lymph % (Auto) 20.5 (20-40) % [place] % (Auto) 8.8 (2-11) % Eos % (Auto) 1.0 (0-4) % Baso % (Auto) 0.6 (0-2) % Lymph # (Auto) 1.8 (1.2-4.9) X10*3/uL [place] # (Auto) 0.8 (0.1-1.2) X10*3/uL Eos # (Auto) 0.1 (0.0-0.4) X10*3/uL Baso # (Auto) 0.1 (0.0-0.2) X10*3/uL Abs Immat Gran (auto) 0.02 (0.00-0.03) X10*3/uL Absolute Neuts (auto) 6.0 (2.0-8.3) x10*3/uL Absolute Nucleated RBC 0.000 (0.0-0.012) X10*3/uL Nucleated RBC % (auto) 0.0 (0.0-0.2) /100WBC PT 13.8 H (11.1-13.3) SEC INR 1.1 (0.9-1.1) Sodium 139 (135-145) mmol/L Potassium 4.4 (3.3-5.1) mmol/L Chloride 104 (96-108) mmol/L Carbon Dioxide 24 (22-29) mmol/L Anion Gap 15 (12-20) BUN 13 (9-16) mg/dL Creatinine 0.95 (0.5-1.4) mg/dL Estim Creat Clear Calc 92.0 Estimated GFR > 60 Random Glucose 117 H (60-115) mg/dL Calcium 9.6 (8.4-10.2) mg/dL Magnesium 1.9 (1.6-2.6) mg/dL Total Bilirubin 1.1 H (0.0-1.0) mg/dL Direct Bilirubin 0.3 (0.0-0.5) mg/dL AST 31 (5-37) U/L ALT 60 H (0-40) U/L Alkaline Phosphatase 83 (39-117) U/L Troponin I High Sens < 2.7 (<3.5-35.0) ng/L B-Natriuretic Peptide 10 (<100) pg/mL Total Protein 7.0 (6.5-8.0) g/dL Albumin 4.3 (3.5-5.0) g/dL Lipase 28 (8-78) U/L Independent Interpretation I performed an independent interpretation of an: EKG (Sinus rhythm with rate of 64 beats per minute. No ST changes, no ectopy.) Radiology Impression Discussion of test interpretation with radiology: I have reviewed the radiologist's reading. (Abdominal ultrasound shows diffusely increased hepatic echotexture suggesting underlying fatty infiltration but no focal hepatic lesion or biliary ductal dilatation) Radiologist Impression: Chest x-rays an unremarkable examination Tests considered The following testing was considered but not selected: Considered CT abdomen pelvis or the patient just had an outpatient CT abdomen pelvis from a few days ago Prescription Management I considered prescription management with: Pain Medication Discharge Plan Discharge Clinical Impression: Chronic abdominal pain Patient Disposition: Home, Self-Care Instructions: Chronic Abdominal Pain (ED) Additional Instructions: Your workup in the emergency department today was reassuring. Next case includes your blood work, EKG, chest x-ray, ultrasound of your abdomen Take all of your home medications as prescribed including Dexilant Follow-up with your GI doctor He may take Flexeril as needed for right flank/chest wall pain Prescriptions: New cyclobenzaprine 10 mg tablet 10 mg PO TID PRN (Reason: muscle spasm) Qty: 20 0RF No Action ropinirole 1 mg tablet 1 mg PO BEDTIME Qty: 30 0RF albuterol sulfate [Ventolin HFA] 90 mcg/actuation HFA aerosol inhaler 2 puff PO QID PRN (Reason: for wheezing) Qty: 18 0RF (DME) bath mat See Rx Instructions .Route .MEDSUPPLY Qty: 1 0RF Rx Instructions: As directed (DME) blood-glucose meter [OneTouch Ultra2 Meter] Misc See Rx Instructions .Route Qty: 1 0RF Rx Instructions: As directed (DME) OneTouch Ultra Test Strip See Rx Instructions .Route Qty: 100 1RF Rx Instructions: Use 1 test strip once a day (DME) lancets [OneTouch UltraSoft 2 Lancet] 30 gauge misc See Rx Instructions .Route Qty: 100 1RF Rx Instructions: Use 1 lancet once a day montelukast 10 mg tablet 10 mg PO DAILY Qty: 90 0RF Incruse Ellipta 62.5 mcg/actuation blister with device 1 inh PO DAILY Qty: 30 3RF doxycycline hyclate 100 mg capsule 100 mg PO BID 7 Days Qty: 14 0RF zolpidem 10 mg tablet 10 mg PO BEDTIME PRN escitalopram oxalate [Lexapro] 10 mg tablet 10 mg PO DAILY Centrum Silver Men 300-600-300 mcg tablet 1 tab PO DAILY clonazepam 1 mg tablet 1 mg PO .COMPLEX Rx Instructions: 1 mg PO 1 tab in pm and 1/2 tab Qam; metformin 500 mg tablet 500 mg PO BID 90 Days Qty: 180 1RF (DME) shower head See Rx Instructions .Route .MEDSUPPLY Qty: 1 0RF Rx Instructions: As directed amitriptyline 25 mg tablet 25 mg PO BEDTIME tadalafil 20 mg tablet 20 mg PO ONCE PRN (Reason: sexual activity) 30 Days Qty: 30 0RF Rx Instructions: may use up to 1.5 tabs ketoconazole 2 % cream topical DAILY PRN albuterol sulfate 2.5 mg /3 mL (0.083 %) solution for nebulization 2.5 mg inhalation Q6H PRN simethicone [Gas Relief Extra Strength] 125 mg capsule 125 mg PO BID-QID Qty: 120 6RF mesalamine 1.2 gram tablet,delayed release (DR/EC) 2.4 g PO DAILY Qty: 180 6RF dexlansoprazole 60 mg capsule,biphase delayed releas 60 mg PO DAILY Qty: 30 6RF bisacodyl 5 mg tablet,delayed release (DR/EC) 10 mg PO BEDTIME Qty: 60 6RF propranolol 80 mg capsule,extended release 24 hr 80 mg PO BID bupropion HCl 300 mg tablet extended release 24 hr 300 mg PO QAM triamcinolone acetonide 0.1 % cream 1 appl topical BID-TID EpiCeram Emulsion, Extended Release topical hydrocortisone [Proctosol HC] 2.5 % cream with perineal applicator 1 appl WA BID Qty: 30 6RF oxybutynin chloride 10 mg tablet extended release 24hr 10 mg PO DAILY Qty: 90 1RF clotrimazole-betamethasone 1-0.05 % cream 1 appl topical BID Qty: 45 0RF Rx Instructions: apply bid for 7 - 10 days then prn
--- NOTE | 2023-04-29 18:22 | ECG_ITS ---
Test Reason : chest pain Blood Pressure : / mmHG Vent. Rate : 064 BPM Atrial Rate : 064 BPM P-R Int : 160 ms QRS Dur : 094 ms QT Int : 370 ms P-R-T Axes : 046 076 063 degrees QTc Int : 381 ms Normal sinus rhythm Normal ECG When compared with ECG of 20-NOV-2019 02:13, No significant change was found Referred By: Roberta Escobar Electronically Signed By:MAEVE MERINO MD
[2023-04-29 18:51] LABS: MANUAL DIFF FLAG NO
[2023-04-29 18:57] LABS: Basophils Absolute Auto 0.1 X10*3/uL (0.0-0.2); Basophils Percent Auto 0.6 % (0-2); Eosinophils Absolute Auto 0.1 X10*3/uL (0.0-0.4); Hematocrit 47.3 % (42.0-52.0); Hemoglobin 16.4 g/dl (14.0-18.0); Imm Gran Abs Auto 0.02 X10*3/uL (0.00-0.03); Imm Gran Pct Auto 0.2 % (0.0-0.4); Lymphocytes Absolute Auto 1.8 X10*3/uL (1.2-4.9); Lymphocytes Percent Auto 20.5 % (20-40); Mean Corpuscular HGB Conc 34.7 g/dl (31.0-36.0); Mean Corpuscular Hemoglobin 30.7 pg (27.0-33.0); Mean Corpuscular Volume 88.4 fL (80.0-98.0); Mean Platelet Volume 10.9 fL (9.4-12.4); Monocytes Absolute Auto 0.8 X10*3/uL (0.1-1.2); Monocytes Percent Auto 8.8 % (2-11); Neutrophils Percent Auto 68.9 % (45-73); Platelet Count 198 X10*3/uL (160-400); Red Blood Count 5.35 X10*6/uL (4.60-5.80); Red Cell Distribution Width 13.2 % (11.0-16.0); White Blood Count 8.7 X10*3/uL (4.8-10.8)
[2023-04-29 18:58] LABS: INTERNATIONAL NORM RATIO 1.1 (0.9-1.1); Prothrombin Time 13.8 SEC (11.1-13.3)
[2023-04-29 19:08] LABS: Alanine Aminotransferase 60 U/L (0-40); Albumin Level 4.3 g/dL (3.5-5.0); Alkaline Phosphatase 83 U/L (39-117); Anion Gap 15 (12-20); Aspartate Amino Transferase 31 U/L (5-37); Bilirubin Direct 0.3 mg/dL (0.0-0.5); Bilirubin Total 1.1 mg/dL (0.0-1.0); Blood Urea Nitrogen 13 mg/dL (9-16); Calcium 9.6 mg/dL (8.4-10.2); Carbon Dioxide 24 mmol/L (22-29); Chloride 104 mmol/L (96-108); Estimated Glomerular Filt Rate > 60; Glucose Random 117 mg/dL (60-115); Lipase 28 U/L (8-78); Magnesium 1.9 mg/dL (1.6-2.6); Potassium 4.4 mmol/L (3.3-5.1); Sodium 139 mmol/L (135-145)
[2023-04-29 19:13] LABS: B Type Natriuretic Peptide 10 pg/mL (<100)
[2023-04-29 19:16] LABS: Troponin-I High Sensitivity < 2.7 ng/L (<3.5-35.0)
--- NOTE | 2023-04-29 22:57 | PC.NURSE ---
Pt presents to the ED for evaluation of right upper quadrant abdominal pain and epigastric pain. States it is worse after eating. State is feels like gas pains. Last bowel movement today that he states was normal. Denies nausea/vomiting.
[2023-04-29 23:16] VITALS: BP 129/81; PULSE 74; RESP 16; TEMP 37.1; O2SAT 94
[2023-04-30] MEDS: Ondansetron ODT 4 MG TAB.RAPDIS TRANSLINGU (00:35)
[2023-04-30] MEDS: Magnesium Hydrox/Alum Hydrox 30 ML ORAL.SUSP PO (00:35)
[2023-04-30] MEDS: Lidocaine HCl Viscous 2 % 15 ML SOLUTION MUCOUS MEM (00:35)
[2023-04-30] MEDS: Cyclobenzaprine HCl 10 MG TABLET PO (00:35)
== END 2023-04-30 00:40 | disposition home or self-care (01) ==
PROVIDERS: Physician Assistant; Emergency Provider Internal Medicine; PCP Internal Medicine
DX: R10.11 Right upper quadrant pain (principal); G89.29 Other chronic pain; R06.02 Shortness of breath; E11.9 Type 2 diabetes mellitus without complications; E78.5 Hyperlipidemia, unspecified; Z87.891 Personal history of nicotine dependence; Z79.899 Other long term (current) drug therapy
CPT/HCPCS: 36415; 71046; 76705; 80048; 80076; 83690; 83735; 83880; 84484; 85025; 85610; 93005; 99284; 99285

== ENCOUNTER 2023-05-15 13:36 | Outpatient (AMB) | payer OTHER, SELFPAY ==
[2023-05-15 13:40] VITALS: BP 102/60; PULSE 73; O2SAT 96; BMI 31.3
--- NOTE | 2023-05-15 13:40 | MHC.OFFVIS ---
Intake Vital Signs 05/15/23 13:40 Height 5 ft 9 in Weight 212 lb BMI 31.3 BP 102/60 Blood Pressure Location Lt brachial Position Sitting Pulse 73 Pulse Source Pulse Oximeter Pulse Oximetry (%) 96 Oxygen Delivery Method Room Air Intake Visit Reasons: COPD Intake Note: pt is here for follow up and states he is doing well. Allergies Penicillins [PENICILLINS] Allergy (Unknown, Verified 05/15/23 13:59) ANAPHYLAXIS Medication List - Last Reconciled 05/15/23 by Vianca Lyons MD albuterol sulfate 2.5 mg inhalation Q6H PRN amitriptyline 25 mg PO BEDTIME [bath mat As directed] bisacodyl 10 mg (2 x 5 mg) PO BEDTIME blood sugar diagnostic ([employer] Ultra Test strips) Use 1 test strip once a day blood-glucose meter ([employer] Ultra2 Meter) As directed bupropion HCl 300 mg PO QAM clonazepam 1 mg PO 1 tab in pm and 1/2 tab Qam; clotrimazole-betamethasone 1-0.05 % 1 appl topical BID cyclobenzaprine 10 mg PO TID PRN dexlansoprazole 60 mg PO DAILY doxycycline hyclate 100 mg PO BID 7 days emollient combination no.32 (EpiCeram topical emulsion, extended release) topical escitalopram oxalate (Lexapro) 10 mg PO DAILY hydrocortisone 2.5% (Proctosol HC) 1 appl [place] BID Incruse Ellipta 62.5 mcg/actuation (umeclidinium) 1 inh PO DAILY NS ketoconazole 2% appl topical DAILY PRN lancets (Trempstar TacticalTouch UltraSoft 2 Lancet) Use 1 lancet once a day mesalamine 2.4 grams (2 x 1.2 gram) PO DAILY metformin 500 mg PO BID 90 days montelukast 10 mg PO DAILY [id number] mcg (Centrum Silver Men) 1 tab PO DAILY oxybutynin chloride ER 10 mg PO DAILY propranolol ER 80 mg PO BID ropinirole 1 mg PO BEDTIME [shower head As directed] simethicone (Gas Relief Extra Strength) 125 mg PO BID-QID tadalafil 20 mg PO ONCE PRN 30 days triamcinolone acetonide 0.1% 1 appl topical BID-TID Ventolin HFA 90 mcg/actuation (albuterol sulfate) 2 puffs PO QID PRN NS zolpidem 10 mg PO BEDTIME PRN Do you need a note to return to daycare/school/sports/work: No HPI COPD HPI Details This 62 years old gentleman comes every 6 months for follow-up for his allergic rhinitis and bronchial asthma. He has allergy problem flares up every now and then. He gets the sinus congestion as well as nasal congestion with any change in the weather. But as long as he is taking Singulair 10 mg daily it is under good control. Breathing also has been good . He uses Incruse Ellipta 1 inhalation daily, and albuterol only once in a while. He does have some anxiety issue but that is under controlled with clonazepam and also a my tripped Ana at bedtime Patient has GERD symptoms which are controlled with medication . He is nonsmoker. [facility] Medical History (Updated 05/15/23 @ 14:05 by Vianca Lyons MD) History of smoking at least 1 pack per day for at least 30 years Personal history of nicotine dependence History of COVID-19 Obesity (BMI 30-39.9) Insomnia COPD (chronic obstructive pulmonary disease) Allergic rhinitis Ulcerative colitis Surgical History History of incisional hernia repair History of cervical spinal surgery History of colonoscopy History of appendectomy History of esophagogastroduodenoscopy (EGD) Family History Father Diabetes HTN (hypertension) Heart attack Mother Skin cancer HTN (hypertension) Diabetes Paternal Aunt Heart attack Sister Skin cancer Social History Household Members: Spouse Housing: Apartment Alcohol intake: never Patient Tobacco Use Status: Former Tobacco user Quit Date: 2011 Tobacco use type: Cigarette Years Smoked: (former smoker - onset 15yo, 1ppd x 36yrs, 35pyh, quit 2011) e-Cigarette/Vaping Use: Never Used Second Hand Smoke Exposure: No service: No Current occupational status: retired Cognitive needs: No Hearing needs: No Vision needs: No Review of Systems Const All systems reviewed & are unremarkable except as noted in HPI and below Eyes Reports no additional complaints ENT Reports nasal congestion and Reports nasal discharge Card Denies chest pain, Denies irregular heart rhythm and Denies leg edema Resp Reports as per HPI GI Reports heartburn (Being treated for GERD symptoms) Reports erectile dysfunction and Reports urinary incontinence Musc Reports no additional complaints Skin/Breast Reports system reviewed and no additional complaints, except as documented Neuro Reports no additional complaints Psych Reports anxiety and Reports depression Endo Reports no additional complaints Jamie/Lymph Reports no additional complaints Physical Exam Vital Signs: Last Vital Signs Pulse 73 05/15/23 13:40 BP 102/60 05/15/23 13:40 Pulse Ox 96 05/15/23 13:40 Oxygen Delivery Method Room Air 05/15/23 13:40 BMI result Body Mass Index 31.3 Const General: comfortable, no acute distress, alert and awake Orientation/consciousness: patient oriented x3 HEENT Head: Yes normal to inspection General nose exam: No nasal polyps present and No nasal discharge present Face and sinus: Yes sinuses nontender Mouth: oropharynx normal Throat: Yes posterior oropharynx normal Eyes General: appearance normal, both eyes and all related structures Neck Neck: Yes normal visual inspection, Yes no lymphadenopathy, Yes trachea midline and Yes no JVD Thyroid: Thyroid normal Chest Chest palpation & inspection: normal inspection of the chest, normal palpation of entire chest wall and no tenderness Resp Other: Percussion note resonant, breath sounds are slightly distant with prolonged expiratory phase, equal on both sides. No wheezes or rhonchi are heard today. Cardio Palpation: normal PMI Rate: regular rate Rhythm: regular rhythm Heart sounds: no gallops and no murmurs GI Palpation (GI): Soft to palpation, nontender, No hepatosplenomegaly present, no masses and Other GI palpation findings present (Abdomen moderately protuberant, due to surgical scar/ventral hernia ) Auscultation: normal bowel sounds Back/Spine/Pelvis Thoracic/Lumbar Spine: thoracic and lumbar spine normal to inspection Skin General skin exam: no rashes or lesions noted Neuro General: patient oriented x3 and no focal motor deficits Cranial nerves: Yes CN's II-XII intact bilaterally Extrem General: Yes normal to inspection, Yes no clubbing, cyanosis or edema and Yes no calf tenderness Psych Appearance: grossly normal and well kempt Speech and movement: Normal speech and movement present Assessment & Plan Assessment & Plan (1) COPD (chronic obstructive pulmonary disease): Comment: Moderate degree of chronic obstructive pulmonary disease, ., SEC TO PAST h/o SMOKING STABLE AT THIS TIME. TX : Incruse Ellipta one inh daily Montelukast 10 mg po daily Ventolin HFA 2 puffs Q 6 hours p.r.n.. Code(s): J44.9 - Chronic obstructive pulmonary disease, unspecified Qualifiers: COPD type: emphysema Emphysema type: panlobular Qualified Code(s): J43.1 - Panlobular emphysema (2) Allergic rhinitis: Comment: Chronic, perineal, allergic type rhinitis, remains controlled. Currently has increased symptoms . [place] : Montelukast 10 mg daily . Flonase nasal spray 2 sprays in each nare daily Zyrtec 10 mg po PRN Code(s): J30.9 - Allergic rhinitis, unspecified (3) History of smoking at least 1 pack per day for at least 30 years: Comment: Patient has past history of smoking but quit in 2011 Code(s): Z87.891 - Personal history of nicotine dependence Coding Level of Care Code Est Pt Level 3 (30130) Diagnoses Panlobular emphysema J43.1 COPD type: emphysema Emphysema type: panlobular Allergic rhinitis J30.9 History of smoking at least 1 pack per day for at least 30 years Z87.891
== END 2023-05-15 14:00 | disposition home or self-care (01) ==
PROVIDERS: PCP Internal Medicine; Visit Provider Internal Medicine
DX: J43.1 Panlobular emphysema (principal); J30.9 Allergic rhinitis, unspecified; Z87.891 Personal history of nicotine dependence
CPT/HCPCS: 99213

== ENCOUNTER → 2023-05-15 13:36 | Outpatient (BNVA) | payer OTHER, SELFPAY | PROVIDERS: PCP Internal Medicine; Visit Provider Internal Medicine | DX: J43.1 Panlobular emphysema (principal); J30.9 Allergic rhinitis, unspecified; Z87.891 Personal history of nicotine dependence | CPT/HCPCS: 99212 ==

== ENCOUNTER 2023-05-20 14:54 | Outpatient (AMB) | payer OTHER, SELFPAY ==
--- NOTE | 2023-05-20 15:05 | MHC.OFFVIS ---
Intake Vital Signs 05/20/23 15:07 Height 5 ft 9 in Weight 212 lb 8.41 oz BMI 31.4 BP 133/71 Blood Pressure Location Lt brachial Position Sitting Pulse 65 Intake Visit Reasons: 6 month follow up NIDDM, UC, GERD Intake Note: Patient presents to in office visit today in 6 months follow up of GERD, UC, NIDDM. CC: Pt reports he had an episode of Rt chest pain every time he swallowed. Pt was seen in the ER on 04/29 with pain and was advised to follow up with GI. Pt reports concerns for abdominal hernia pain, increased gas, and bloating. Accompanied by: Self / Same As Patient Allergies Penicillins [PENICILLINS] Allergy (Unknown, Verified 06/12/23 11:16) ANAPHYLAXIS HPI 6 month follow up NIDDM, UC, GERD HPI Details Assessment & Plan (1) Diabetes: Comment: Hemoglobin A1c 6.7% and 2 hour fasting glucose tolerance test positive for diabetes. aeb Code(s): E11.9 - Type 2 diabetes mellitus without complications Plan: He definitely has diabetes!! I will refer him to health sciences department chair first and if this does not control his sugars better he should have medication therapy considered via his PCP. He is quite agreeable to this, he commits today to stopping soda and he really likes walking. Obviously this is all contributing to his fatty liver presentation since controlling weight and controlling diabetes along with avoiding toxins is vincent to getting a fatty liver under controlled and preventing the development of liver cancer or cirrhosis. He admits he did not do much to care for himself during the COVID pandemic any also was quite worried about his and busy caring for her. He admits that he gained quite a bit of weight and became lazy about diet and exercise. He continues to do well on his mesalamine, bisacodyl, Dexilant and simethicone. He tells me that his has been through a LOT of health problems, and this c/y his wt gain. She had shingles, an aneurism, a spinal lesion in the mid back, and she fell 21 times! Her aneurism has now been fixed in [place], and she had her back lesion removed as well. She is doing better now and feeing better. The back lesion was not cancerous. ROV 6 mos. (2) GUZMAN (nonalcoholic steatohepatitis): Comment: BASELINE LABS: 10/2018 Hep B immune, not to Hep A or C, HIV negative, autoimmune work up neg, AFP 2.9, Ferritin 532, GGT 66. AST/ALT 62/151 Current Laboratory Tests Laboratory Tests 08/26/22 09:45 Estimated GFR > 60 Fasting Glucose 143 H Total Bilirubin 0.8 AST 66 H ALT 135 H Alkaline Phosphatase 84 ULTRASOUND OF THE ABDOMEN 08/14/22 IMPRESSION: There is generalized increase in hepatic echotexture, consistent with fatty infiltration or hepatocellular disease. Characteristic pericholecystic sparing favors fatty infiltration. Provided history of GUZMAN noted. No focal hepatic mass or intrahepatic biliary dilatation is seen. ? Code(s): K75.81 - Nonalcoholic steatohepatitis (GUZMAN) Orders: Referrals Diabetes Education Referral E11.9 - Type 2 tamiko betes mellitus wit hout complications , K75.81 - Nonalco holic steatohepati tis (GUZMAN) Laboratory Tests 04/29/23 04/29/23 18:45 18:46 Plt Count 198 Estimated GFR > 60 Total Bilirubin 1.1 H Direct Bilirubin 0.3 AST 31 ALT 60 H Alkaline Phosphata se 83 CT ABD AND PELVIS 05/03/23 FINDINGS: LUNG BASES: Atelectasis versus scarring along the right major fissure. No pneumothorax. No large pleural effusion. LIVER, GALLBLADDER, AND BILIARY TREE: The liver is normal in size and shape. Decreased hepatic attenuation suggesting hepatic steatosis with regions of focal fatty sparing adjacent to gallbladder fossa. No focal hepatic lesion or biliary ductal dilatation is present. The gallbladder is unremarkable with no evidence of radiopaque gallstones, gallbladder wall thickening, or obvious pericholecystic inflammatory changes. PANCREAS: Unremarkable. SPLEEN: Unremarkable. ADRENAL GLANDS: Unremarkable. KIDNEYS AND URETERS: The kidneys are normal in size, shape, and attenuation. No hydronephrosis, hydroureter, or calculi seen. No perinephric stranding. GASTROINTESTINAL TRACT: The small and large bowel are unremarkable. The appendix is not visualized. ABDOMINAL WALL: Diastases rectae. Partial visualization of hernia mesh along the anterior abdominal wall. Postsurgical changes along the anterior abdominal wall with a few focal defects are noted in the midline anterior abdominal wall cranial to the hernia mesh one of which measures approximately 2.4 cm in its opening and containing a nonspecific hypodense focus measuring 2.2 cm and mesentery (series 4, image 399). LYMPH NODES: Normal. VASCULAR: Unremarkable. OSSEOUS STRUCTURES: Multilevel degenerative changes of the thoracolumbar spine. Degenerative arthropathy of the right sacroiliac joint. CT/CT abdomen wo IV con IMPRESSION: 1. The entirety of the craniocaudad dimension of the abdominal wall is not captured limiting evaluation. Diastases rectae. Partial visualization of hernia mesh along the anterior abdominal wall. Postsurgical changes along the anterior abdominal wall with a few focal defects noted in the midline anterior abdominal wall cranial to the hernia mesh one of which measures approximately 2.4 cm in its opening and containing a nonspecific hypodense focus measuring 2.2 cm and mesentery. 2. Decreased hepatic attenuation suggesting hepatic steatosis with regions of focal fatty sparing adjacent to gallbladder fossa. TODAY'S VISIT [place] [employer] His is doing better, but has back pain r/t a benign tumor removed. He is seeing a health sciences department chair now for NIDDM. His transaminases have significantly improved with better control, he is also on metformin 500mg bid. We discuss is significant incisional hernias he seems to have a perceived increase in the size of the one to the upper left to the incisional line. The CT ordered by his PCP does show some areas of increased problems in the mesh and diastasis recti. If this becomes painful he may need to speak to a surgeon - but weight loss would go a long to helping to prevent failure of his mesh r/t abdominal adipose tissue and pressure and I counselled him as such. He had an episode of severe painful stabbing pain in the RUQ/ribs that happened 04/29 and presented to our ER. He had this pain in the past when in CT but it was not as severe. He was given flexeril and a GI cocktail and now he has continued soreness but now across the bilateral upper quads equally. He says he is moving his bowels well, but given the path he is tracing may be the bowels or may be mskskel. He did not feel that the flexeral helped. THe ER also recommended an EGD, so we will get this since he has not had this in the past. Also a trial of bentyl if the pain returns to see if this helps if it is bowel spasm. He also had a recent cervical spine injection preceding the pain by about a week. Its possible that there was some mild prednisone leak effecting GI motility. This was done at [facility]. He may be having a spinal ablation in the future, but this is not what was done previously (apparently this may be pending [place] via insurance). THis was to treat right arm pain. ROV 3 mos and after EGD. [facility] Medical History History of smoking at least 1 pack per day for at least 30 years Personal history of nicotine dependence History of COVID-19 Obesity (BMI 30-39.9) Insomnia COPD (chronic obstructive pulmonary disease) Allergic rhinitis Ulcerative colitis Surgical History History of incisional hernia repair History of cervical spinal surgery History of colonoscopy History of appendectomy History of esophagogastroduodenoscopy (EGD) Family History Father Diabetes HTN (hypertension) Heart attack Mother Skin cancer HTN (hypertension) Diabetes Paternal Aunt Heart attack Sister Skin cancer Social History Household Members: Spouse Housing: Apartment Alcohol intake: never Patient Tobacco Use Status: Former Tobacco user Quit Date: 2011 Tobacco use type: Cigarette Years Smoked: (former smoker - onset 15yo, 1ppd x 36yrs, 35pyh, quit 2011) e-Cigarette/Vaping Use: Never Used Second Hand Smoke Exposure: No service: No Current occupational status: retired Cognitive needs: No Hearing needs: No Vision needs: No Review of Systems Const Denies fatigue, Denies fever(s), Denies night sweats, Denies poor appetite and Denies weight loss ENT Reports Normal hearing present, Denies dental pain, Denies dysphagia, Denies hearing loss, Denies mouth pain, Reports neck pain, Denies odynophagia, Denies throat swelling, Denies tongue swelling and Reports other (Dentition adequate) Card Reports no additional complaints Resp Reports no additional complaints GI Reports abdominal pain, Denies melena, Denies bloating, Denies hematochezia, Reports constipation, Denies GI cramping, Denies dysphagia, Denies excessive flatus, Denies early satiety, Reports heartburn, Denies diarrhea, Denies nausea, Denies odynophagia, Denies vomiting and Denies hematemesis Musc Reports back pain, Reports arthralgias, Reports neck pain and Reports stiffness Skin/Breast Denies pruritus, Denies lesions, Denies rash and Denies jaundice Neuro Reports Normal hearing present, Denies Abnormal speech present and Reports radicular pain Endo Denies fatigue Aller/Immun Denies throat swelling and Denies tongue swelling Physical Exam Vital Signs: Last Vital Signs Pulse 65 05/20/23 15:07 BP 133/71 05/20/23 15:07 BMI result Body Mass Index 31.4 Const General: cooperative, no acute distress, well developed and well groomed Nutritional Appearance: well nourished and obese Orientation/consciousness: oriented to person, oriented to place and oriented to time Limitations: language barrier HEENT Head: Yes normocephalic and Yes atraumatic Eyes General: appearance normal, both eyes and all related structures Pupils: Equal, round and reactive pupils present Neck Neck: Yes normal visual inspection and Yes no lymphadenopathy Thyroid: Thyroid normal Resp Effort & Inspection: normal respiratory effort and able to speak in complete sentences Auscultation: clear to auscultation bilaterally Cardio Rate: regular rate Rhythm: regular rhythm Heart sounds: Normal, physiologic split S2 sound present Peripheral pulses: radial pulses present and posterior tibial pulses present GI Other: left side appears larger than right of abd Inspection: No distended, Yes incision, Yes Abdominal panniculus present, Yes obesity and Yes visible herniation Palpation (GI): Soft to palpation, nontender, no guarding, not rigid and No hepatosplenomegaly present Percussion: Yes tympanic to percussion (more on left) Auscultation: normal bowel sounds Rectal Exam - Male: Yes deferred Abdomen image: 1. surgical scars 2. 3. increase in incisional hrenia per pt Skin General skin exam: no rashes or lesions noted, turgor normal, skin not dry, no jaundice, No spider nevi and no striae Rashes: no rashes Nails: normal Neuro General: oriented to person, oriented to place and oriented to time Cranial nerves: Yes Equal, round and reactive pupils present and Yes Normal hearing present Speech: No Abnormal speech present Extrem General: Yes normal to inspection, No clubbing, No cyanosis and No edema Psych Appearance: grossly normal and well kempt Mental Status: mental status grossly normal Speech and movement: Normal speech and movement present Affect: normal affect Attitude: cooperative Thought process: Normal thought process present and not confabulating Thought content: Normal thought content present Insight: Limited insight present (Psych) Judgement: Limited judgement present (Psych) Results Reviewed Results Reviewed: Laboratory Tests 04/29/23 04/29/23 18:45 18:46 Plt Count 198 Estimated GFR > 60 Total Bilirubin 1.1 H Direct Bilirubin 0.3 AST 31 ALT [address] CT ABD AND PELVIS 05/03/23 FINDINGS: LUNG BASES: Atelectasis versus scarring along the right major fissure. No pneumothorax. No large pleural effusion. LIVER, GALLBLADDER, AND BILIARY TREE: The liver is normal in size and shape. Decreased hepatic attenuation suggesting hepatic steatosis with regions of focal fatty sparing adjacent to gallbladder fossa. No focal hepatic lesion or biliary ductal dilatation is present. The gallbladder is unremarkable with no evidence of radiopaque gallstones, gallbladder wall thickening, or obvious pericholecystic inflammatory changes. PANCREAS: Unremarkable. SPLEEN: Unremarkable. ADRENAL GLANDS: Unremarkable. KIDNEYS AND URETERS: The kidneys are normal in size, shape, and attenuation. No hydronephrosis, hydroureter, or calculi seen. No perinephric stranding. GASTROINTESTINAL TRACT: The small and large bowel are unremarkable. The appendix is not visualized. ABDOMINAL WALL: Diastases rectae. Partial visualization of hernia mesh along the anterior abdominal wall. Postsurgical changes along the anterior abdominal wall with a few focal defects are noted in the midline anterior abdominal wall cranial to the hernia mesh one of which measures approximately 2.4 cm in its opening and containing a nonspecific hypodense focus measuring 2.2 cm and mesentery (series 4, image 399). LYMPH NODES: Normal. VASCULAR: Unremarkable. OSSEOUS STRUCTURES: Multilevel degenerative changes of the thoracolumbar spine. Degenerative arthropathy of the right sacroiliac joint. CT/CT abdomen wo IV con IMPRESSION: 1. The entirety of the craniocaudad dimension of the abdominal wall is not captured limiting evaluation. Diastases rectae. Partial visualization of hernia mesh along the anterior abdominal wall. Postsurgical changes along the anterior abdominal wall with a few focal defects noted in the midline anterior abdominal wall cranial to the hernia mesh one of which measures approximately 2.4 cm in its opening and containing a nonspecific hypodense focus measuring 2.2 cm and mesentery. 2. Decreased hepatic attenuation suggesting hepatic steatosis with regions of focal fatty sparing adjacent to gallbladder fossa. Assessment & Plan Assessment & Plan (1) Chronic idiopathic constipation: Code(s): K59.04 - Chronic idiopathic constipation (2) GERD (gastroesophageal reflux disease): Code(s): K21.9 - Gastro-esophageal reflux disease without esophagitis Qualifiers: Esophagitis presence: without esophagitis Qualified Code(s): K21.9 - Gastro-esophageal reflux disease without esophagitis (3) GUZMAN (nonalcoholic steatohepatitis): Comment: BASELINE LABS: 10/2018 Hep B immune, not to Hep A or C, HIV negative, autoimmune work up neg, AFP 2.9, Ferritin 532, GGT 66. AST/ALT 62/151 Current Laboratory Tests Laboratory Tests 08/26/22 09:45 Estimated GFR > 60 Fasting Glucose 143 H Total Bilirubin 0.8 AST 66 H ALT 135 H Alkaline Phosphatase 84 ULTRASOUND OF THE ABDOMEN 08/14/22 IMPRESSION: There is generalized increase in hepatic echotexture, consistent with fatty infiltration or hepatocellular disease. Characteristic pericholecystic sparing favors fatty infiltration. Provided history of GUZMAN noted. No focal hepatic mass or intrahepatic biliary dilatation is seen. ? Code(s): K75.81 - Nonalcoholic steatohepatitis (GUZMAN) (4) Ulcerative colitis: Code(s): K51.90 - Ulcerative colitis, unspecified, without complications (5) Sessile colonic polyp: Comment: (07/31/21 scope=2 sessile TA - repeat 3 years in 2024) Code(s): K63.5 - Polyp of colon (6) Diabetes: Code(s): E11.9 - Type 2 diabetes mellitus without complications Qualifiers: Diabetes mellitus complication status: without complication (7) Abdominal cramping: Code(s): R10.9 - Unspecified abdominal pain (8) Upper abdominal pain: Code(s): R10.10 - Upper abdominal pain, unspecified Plan [place] [employer] His is doing better, but has back pain r/t a benign tumor removed. He is seeing a health sciences department chair now for NIDDM. His transaminases have significantly improved with better control, he is also on metformin 500mg bid. We discuss is significant incisional hernias he seems to have a perceived increase in the size of the one to the upper left to the incisional line. The CT ordered by his PCP does show some areas of increased problems in the mesh and diastasis recti. If this becomes painful he may need to speak to a surgeon - but weight loss would go a long to helping to prevent failure of his mesh r/t abdominal adipose tissue and pressure and I counselled him as such. He had an episode of severe painful stabbing pain in the RUQ/ribs that happened 04/29 and presented to our ER. He had this pain in the past when in CT but it was not as severe. He was given flexeril and a GI cocktail and now he has continued soreness but now across the bilateral upper quads equally. He says he is moving his bowels well, but given the path he is tracing may be the bowels or may be mskskel. He did not feel that the flexeral helped. THe ER also recommended an EGD, so we will get this since he has not had this in the past. Also a trial of bentyl if the pain returns to see if this helps if it is bowel spasm. He also had a recent cervical spine injection preceding the pain by about a week. Its possible that there was some mild prednisone leak effecting GI motility. This was done at [facility]. He may be having a spinal ablation in the future, but this is not what was done previously (apparently this may be pending [place] via insurance). THis was to treat right arm pain. ROV 3 mos and after EGD. Orders: Orders EGD with [facility] - GI Use Only 05/20/23 R10.10 - Upper abdominal pain, unspecified Medications: New dicyclomine 20 mg PO BID 60 tabs 3RF 30 days R10.9 - Unspecified abdominal pain Changed From mesalamine 2.4 grams (2 x 1.2 gram) PO DAILY 180 tabs 6RF K51.90 - Ulcerative colitis, unspecified, without complications To mesalamine 2.4 grams (2 x 1.2 gram) PO DAILY 180 tabs 6RF K51.90 - Ulcerative colitis, unspecified, without complications Refilled simethicone (Gas Relief Extra Strength) 125 mg PO BID-QID 120 caps 6RF R14.0 - Abdominal distension (gaseous) dexlansoprazole 60 mg PO DAILY 30 caps 6RF K21.9 - Gastro-esophageal reflux disease without esophagitis bisacodyl 10 mg (2 x 5 mg) PO BEDTIME 60 tabs 6RF K59.04 - Chronic idiopathic constipation Coding Level of Care Code Est Pt Level 4 (52069) Diagnoses Chronic idiopathic constipation K59.04 Gastroesophageal reflux disease without esophagitis K21.9 Esophagitis presence: without esophagitis GUZMAN (nonalcoholic steatohepatitis) K75.81 Ulcerative colitis K51.90 Sessile colonic polyp K63.5 Diabetes E11.9 Diabetes mellitus complication status: without complication Abdominal cramping R10.9 Upper abdominal pain R10.10
[2023-05-20 15:07] VITALS: BP 133/71; PULSE 65; BMI 31.4
== END 2023-05-20 16:12 | disposition home or self-care (01) ==
PROVIDERS: Visit Provider Nurse Practitioner
DX: K59.04 Chronic idiopathic constipation (principal); K21.9 Gastro-esophageal reflux disease without esophagitis; K75.81 Nonalcoholic steatohepatitis (NASH); K51.90 Ulcerative colitis, unspecified, without complications; K63.5 Polyp of colon; E11.9 Type 2 diabetes mellitus without complications; R10.9 Unspecified abdominal pain; R10.10 Upper abdominal pain, unspecified
CPT/HCPCS: 99214

== ENCOUNTER → 2023-05-20 14:54 | Outpatient (BNVA) | payer OTHER, SELFPAY | PROVIDERS: Visit Provider Nurse Practitioner | DX: K59.04 Chronic idiopathic constipation (principal); K21.9 Gastro-esophageal reflux disease without esophagitis; K75.81 Nonalcoholic steatohepatitis (NASH); K51.90 Ulcerative colitis, unspecified, without complications; K63.5 Polyp of colon; E11.9 Type 2 diabetes mellitus without complications; R10.9 Unspecified abdominal pain; R10.10 Upper abdominal pain, unspecified | CPT/HCPCS: 99212 ==

== ENCOUNTER 2023-06-04 10:05 | Outpatient (REF) | payer OTHER, SELFPAY ==
[2023-06-04 11:15] LABS: Creatinine Urine 134.31 mg/dL; Microalbum/Creatinine Ratio Ur 10.4 ug/mg cr (<30)
[2023-06-04 11:20] LABS: Alanine Aminotransferase 81 U/L (0-40); Albumin Level 4.3 g/dL (3.5-5.0); Alkaline Phosphatase 75 U/L (39-117); Anion Gap 12 (12-20); Aspartate Amino Transferase 41 U/L (5-37); Bilirubin Total 0.8 mg/dL (0.0-1.0); Blood Urea Nitrogen 14 mg/dL (9-16); Calcium 9.4 mg/dL (8.4-10.2); Carbon Dioxide 29 mmol/L (22-29); Chloride 104 mmol/L (96-108); Cholesterol 203 mg/dL (<200); Estimated Glomerular Filt Rate > 60; Glucose Fasting 134 mg/dL (60-99); HDL Cholesterol 38 mg/dL (>40); LDL Cholesterol Calculated 140 mg/dL (<100); Potassium 4.2 mmol/L (3.3-5.1); Sodium 141 mmol/L (135-145); Total Protein 6.8 g/dL (6.5-8.0); Triglycerides 126 mg/dL (<150)
[2023-06-04 11:32] LABS: PSA,Total (Free>4and<10) 4.79 ng/mL (0.00-4.00)
[2023-06-09 20:53] LABS: Free Prostate Spec Ag 0.6 ng/mL; Percent Free Prostate Spec Ag 16 % (calc) (>25); Prostate Specific Ag Total 3.8 ng/mL (< OR = 4.0)
== END 2023-06-04 10:06 | disposition home or self-care (01) ==
LOC: HO.LAB 10:05
PROVIDERS: Urology; PCP Internal Medicine; Visit Provider Internal Medicine
DX: Z12.5 Encounter for screening for malignant neoplasm of prostate (principal); E11.9 Type 2 diabetes mellitus without complications; E78.5 Hyperlipidemia, unspecified
CPT/HCPCS: 36415; 80053; 80061; 82043; 82570; 84153; 84154

== ENCOUNTER 2023-06-05 15:26 | Outpatient (AMB) | payer OTHER, SELFPAY ==
[2023-06-05 15:34] VITALS: BP 122/80; BMI 31.5
--- NOTE | 2023-06-05 15:34 | A.OFFPC_ITS ---
Vital Signs 06/05/23 15:34 Height 5 ft 9 in Weight 213 lb BMI 31.5 BP 122/80 Blood Pressure Location Lt brachial Position Sitting Intake Visit Reasons: dm NEEDS 30 MINUTES Intake Note: Patient here for a follow up DM Geology Technician Required: No Accompanied by: Self / Same As Patient Allergies Penicillins [PENICILLINS] Allergy (Unknown, Verified 06/05/23 15:47) ANAPHYLAXIS Medication List - Last Reconciled 06/05/23 by Shelli Bartlett MD albuterol sulfate 2.5 mg inhalation Q6H PRN [bath mat As directed] bisacodyl 10 mg (2 x 5 mg) PO BEDTIME blood sugar diagnostic ([employer] Ultra Test strips) Use 1 test strip once a day blood-glucose meter ([employer] Ultra2 Meter) As directed bupropion HCl 300 mg PO QAM clonazepam 1 mg PO 1 tab in pm and 1/2 tab Qam; clotrimazole-betamethasone 1-0.05 % 1 appl topical BID cyclobenzaprine 10 mg PO TID PRN cyclosporine 0.05% 1 drp ophthalmic (eye) BID dexlansoprazole 60 mg PO DAILY dicyclomine 20 mg PO BID 30 days emollient combination no.32 (EpiCeram topical emulsion, extended release) topical escitalopram oxalate (Lexapro) 10 mg PO DAILY hydrocortisone 2.5% (Proctosol HC) 1 appl GA BID Incruse Ellipta 62.5 mcg/actuation (umeclidinium) 1 inh PO DAILY NS ketoconazole 2% appl topical DAILY PRN lancets (CueddTouch UltraSoft 2 Lancet) Use 1 lancet once a day meloxicam 7.5 mg PO DAILY mesalamine 2.4 grams (2 x 1.2 gram) PO DAILY metformin 500 mg PO BID 90 days montelukast 10 mg PO DAILY [id number] mcg (Centrum Silver Men) 1 tab PO DAILY oxybutynin chloride ER 10 mg PO DAILY propranolol ER 80 mg PO BID ropinirole 1 mg PO BEDTIME [shower head As directed] simethicone (Gas Relief Extra Strength) 125 mg PO BID-QID tadalafil 20 mg PO ONCE PRN 30 days triamcinolone acetonide 0.1% 1 appl topical BID-TID Ventolin HFA 90 mcg/actuation (albuterol sulfate) 2 puffs PO QID PRN NS zolpidem 10 mg PO BEDTIME PRN Tobacco use date assessed: 08/26/22 Dental Screening Dental Screen Date: 06/05/23 Did you have a dental visit in the last 12 months?: Yes Did you have a dental problem in the last 6 months where you did not have access to dental care?: No Was dental information given to patient?: Patient has dentist HPI HPI Comments History of Present Illness Details This is a 62-year-old male with diabetes mellitus type 2, hyperlipidemia, COPD, mild major depression and ulcerative colitis that comes today for follow-up on his conditions. A1c within goal. LDL not on goal and I will start him on statins. COPD stable and this is follow by pulmonology. Depression well controlled with bupropion and escitalopram. Ulcerative colitis stable with mesalamine. Denies any chest pain or shortness of breath PFSH Medical History (Updated 06/05/23 @ 16:16 by Shelli Bartlett MD) History of smoking at least 1 pack per day for at least 30 years Personal history of nicotine dependence History of COVID-19 Obesity (BMI 30-39.9) Insomnia COPD (chronic obstructive pulmonary disease) Allergic rhinitis Ulcerative colitis Surgical History History of incisional hernia repair History of cervical spinal surgery History of colonoscopy History of appendectomy History of esophagogastroduodenoscopy (EGD) Family History Father Diabetes HTN (hypertension) Heart attack Mother Skin cancer HTN (hypertension) Diabetes Paternal Aunt Heart attack Sister Skin cancer Social History Household Members: Spouse Housing: Apartment Alcohol intake: never Patient Tobacco Use Status: Former Tobacco user Quit Date: 2011 Tobacco use type: Cigarette Years Smoked: (former smoker - onset 15yo, 1ppd x 36yrs, 35pyh, quit 2011) e-Cigarette/Vaping Use: Never Used Second Hand Smoke Exposure: No service: No Current occupational status: retired Cognitive needs: No Hearing needs: No Vision needs: No Questionnaire Thrive Questionnaire Date Thrive assessed: 08/26/22 KRZYSZTOF-7 AMB Questionnaire KRZYSZTOF-7 Date KRZYSZTOF - 7 assessed: 08/26/22 Source: Developed by Drs. 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 Review of Systems Const All systems reviewed & are unremarkable except as noted in HPI and below Eyes Reports no additional complaints, Denies change in vision and Denies other visual disturbances Card Denies chest pain at rest, Denies chest pain with activity, Denies edema, Denies irregular heart rhythm, Denies claudication, Denies dyspnea, Denies dyspnea on exertion, Denies orthopnea, Denies paroxysmal nocturnal dyspnea and Denies slow heart rate Resp Denies cough, Denies dyspnea and Denies dyspnea on exertion GI Denies abdominal pain, Denies change in bowel habits, Denies excessive flatus, Denies nausea and Denies vomiting Denies urinary hesitancy, Denies urinary incontinence and Denies urinary urgency Musc Denies abnormal gait, Denies atrophy, Denies deformity and Denies limited range of motion Skin/Breast Denies bleeding lesions, Denies changing lesions and Denies rash Neuro Denies abnormal gait and Denies lack of coordination Physical exam (Primary Care) Vital Signs: Last Vital Signs BP 122/80 06/05/23 15:34 BMI result Body Mass Index 31.5 Tobacco/Smoking Status: Tobacco use Status Tobacco use date assessed 08/26/22 06/05/23 15:39 Patient Tobacco Use Status Former Tobacco user 06/05/23 15:39 Tobacco use type Cigarette 06/05/23 15:39 e-Cigarette/Vaping Use Never Used 06/05/23 15:39 Thrive Assessment: Date of Thrive Assessment Date Thrive assessed 08/26/22 06/05/23 15:39 Eyes General: appearance normal, both eyes and all related structures Eyelids: Yes eyelids normal Conjunctivae: conjunctivae normal Neck Neck: Yes normal visual inspection and Yes supple Resp Effort & Inspection: normal respiratory effort Auscultation: clear to auscultation bilaterally Cardio Jugular venous distension: no JVD Rate: regular rate Rhythm: regular rhythm Heart sounds: S1 normal heart sound present and S2 normal heart sound present Extrem General: Yes full ROM Office Procedures Flu Questionnaire Does the patient have a severe egg allergy?: No Does the patient have severe life threatening allergies?: No Does the patient have a fever or illness today?: No Has the patient ever had Guillain-[place] Syndrome?: No Has the patient ever had any past reaction to a flu shot?: No Results AMB Hemoglobin A1c AMB Hemoglobin A1c 6.8 % Last Edit by GEORGETTE Palma on 06/05/23 15:4 7 Immunizations flu vacc [id number] 6mos up(PF) 60 mcg(15 mcgx4)/0.5 mL IM syringe Performing Provider: Shelli Bartlett MD Performing Location: [facility] Administered by: GEORGETTE Palma on 06/05/23 16:01 Dose Route Admin Location Dispensed Lot Number Expiration Date NDC Director Of Accounting 0.5 mL IM Left Deltoid 0.5 mL [id number] 12/28/23 17678-975-46 [employer] VIS Given Date VIS Provided VIS Publication Date 06/05/23 Single Vaccine 21 Eligibility Eligibility Date Funding Source Not VFC Eligible 06/05/23 Private Results Reviewed Results Reviewed: Laboratory Last Values Hgb A1c (Clinic) 6.8 % (4.0-6.0) H 06/05/23 15:39 Assessment and Plan Assessment & Plan (1) Diabetes: Code(s): E11.9 - Type 2 diabetes mellitus without complications Qualifiers: Diabetes mellitus complication status: without complication Plan: Continue metformin. A1c goal is equal or less than 7%. (2) COPD (chronic obstructive pulmonary disease): Comment: Moderate degree of chronic obstructive pulmonary disease, ., SEC TO PAST h/o SMOKING STABLE AT THIS TIME. TX : Incruse Ellipta one inh daily Montelukast 10 mg po daily Ventolin HFA 2 puffs Q 6 hours p.r.n.. Code(s): J44.9 - Chronic obstructive pulmonary disease, unspecified Qualifiers: COPD type: emphysema Emphysema type: panlobular Qualified Code(s): J43.1 - Panlobular emphysema Plan: Use rescue inhaler as needed. Follow-up with pulmonology. (3) Mild major depression: Code(s): F32.0 - Major depressive disorder, single episode, mild Plan: Continue bupropion. (4) Hyperlipidemia LDL goal <70: Code(s): E78.5 - Hyperlipidemia, unspecified Plan: Start statins. LDL goal is less than 70. Orders: Orders Influenza [id number] Immunization Today Z23 - Encounter for immunization AMB Hemoglobin A1c Today E11.9 - Type 2 diabetes mellitus without complications Lipid Panel 4 Months E78.5 - Hyperlipidemia, unspecified Microalbumin, Random (w Creat) 4 Months E11.9 - Type 2 diabetes mellitus without complications Vitamin D 25-OH Total 4 Months E55.9 - Vitamin D deficiency, unspecified Comprehensive [place]. Panel Fast 4 Months E11.9 - Type 2 diabetes mellitus without complications Medications: New atorvastatin 20 mg PO BEDTIME 90 days 90 tabs 1RF Refilled blood sugar diagnostic ([employer] Ultra Test strips) Use 1 test strip once a day 100 ea 1RF E11.9 - Type 2 diabetes mellitus without complications lancets (CueddTouch UltraSoft 2 Lancet) Use 1 lancet once a day 100 ea 1RF E11.9 - Type 2 diabetes mellitus without complications Coding Level of Care Code Est Pt Level 4 (89502) Diagnoses Diabetes E11.9 Diabetes mellitus complication status: without complication Panlobular emphysema J43.1 COPD type: emphysema Emphysema type: panlobular Mild major depression F32.0 Hyperlipidemia LDL goal <70 E78.5 Time Spent (min) 23
== END 2023-06-05 16:03 | disposition home or self-care (01) ==
PROVIDERS: PCP Internal Medicine; Visit Provider Internal Medicine
DX: E11.9 Type 2 diabetes mellitus without complications (principal); J43.1 Panlobular emphysema; F32.0 Major depressive disorder, single episode, mild; E78.5 Hyperlipidemia, unspecified; Z23 Encounter for immunization
CPT/HCPCS: 83036; 90471; 90686; 99214

== ENCOUNTER 2023-06-12 10:55 | Day surgery (SDC) | payer OTHER, SELFPAY ==
--- NOTE | 2023-06-11 09:46 | P.CONAN_ITS ---
Documented by User: Jerica Goddard NP 06/11/23 09:47 HPI - Anesthesia Eval Consult details Narrative: 62yo M for Upper Endoscopy PMFSH Active Problems Active Problems: All Active Problems (Updated 06/05/23 @ 16:16 by Shelli Bartlett MD) Hyperlipidemia LDL goal <70 (Acute) Upper abdominal pain (Acute) History of smoking at least 1 pack per day for at least 30 years (Acute) Balanitis (Acute) Screening PSA (prostate specific antigen) (Acute) Abdominal wall hernia (Acute) Physical exam (Acute) Diabetes (Acute) Elevated fasting glucose (Acute) Impaired glucose tolerance (Acute) Dyslipidemia (Acute) COPD (chronic obstructive pulmonary disease) (Acute) Personal history of nicotine dependence (Acute) Allergic rhinitis (Acute) Obesity (BMI 30-39.9) (Acute) Mild major depression (Acute) Generalized anxiety disorder (Acute) Insomnia (Acute) Essential tremor (Acute) BPH w urinary obs/LUTS (Acute) Erectile dysfunction (Acute) Ulcerative colitis (Acute) Sessile colonic polyp (Acute) GUZMAN (nonalcoholic steatohepatitis) (Acute) GERD (gastroesophageal reflux disease) (Acute) Chronic idiopathic constipation (Acute) Hemorrhoids without complication (Acute) Abdominal bloating (Acute) Abdominal cramping (Acute) Incisional hernia (Acute) Left inguinal hernia (Acute) Pain in both feet (Acute) Neck pain (Acute) Lumbar pain (Acute) Past Medical History Medical History History of smoking at least 1 pack per day for at least 30 years Personal history of nicotine dependence History of COVID-19 Obesity (BMI 30-39.9) Insomnia COPD (chronic obstructive pulmonary disease) Allergic rhinitis Ulcerative colitis Family History Family History Father Diabetes HTN (hypertension) Heart attack Mother Skin cancer HTN (hypertension) Diabetes Paternal Aunt Heart attack Sister Skin cancer Family history of problems with anesthesia: No Surgical History Surgical History History of incisional hernia repair History of cervical spinal surgery History of colonoscopy History of appendectomy History of esophagogastroduodenoscopy (EGD) History of Problems with Anesthesia: No Social History Social History Household Members: Spouse Housing: Apartment Alcohol intake: never Patient Tobacco Use Status: Former Tobacco user Quit Date: 2011 Tobacco use type: Cigarette Years Smoked: (former smoker - onset 15yo, 1ppd x 36yrs, 35pyh, quit 2011) e-Cigarette/Vaping Use: Never Used Second Hand Smoke Exposure: No service: No Current occupational status: retired Cognitive needs: No Hearing needs: No Vision needs: No Meds Allergies Allergy/AdvReac Type Severity Reaction Status Date / Time Penicillins [PENICILLINS] Allergy Unknown ANAPHYLAXIS Verified 06/05/23 15:47 Home Medications Medication Instructions Recorded Confirmed Last Taken Type escitalopram oxalate 10 mg tablet 10 mg PO DAILY 01/18/21 06/05/23 Unknown History (Lexapro) [id number] 300 mcg-K 60 1 tab PO DAILY 01/18/21 06/05/23 Unknown History mcg-lycop 600 mcg-lutein 300 mcg tablet (Centrum Silver Men) zolpidem 10 mg tablet 10 mg PO BEDTIME PRN 01/18/21 06/05/23 Unknown History bupropion HCl 300 mg 24 hr tablet, 300 mg PO QAM 08/13/21 06/05/23 Unknown History extended release emollient combination no.32 topical 08/13/21 06/05/23 Unknown History (EpiCeram topical emulsion, extended release) propranolol 80 mg capsule,24 80 mg PO BID 08/13/21 06/05/23 Unknown History hr,extended release triamcinolone acetonide 0.1 % 1 appl topical BID-TID 08/13/21 06/05/23 Unknown History topical cream ketoconazole 2 % topical cream appl topical DAILY PRN 01/14/22 06/05/23 Unknown History clonazepam 1 mg tablet 1 mg PO .COMPLEX 01/21/22 06/05/23 Unknown History albuterol sulfate 2.5 mg/3 mL 2.5 mg inhalation Q6H PRN 05/16/22 06/05/23 Unknown History (0.083 %) solution for nebulization cyclosporine 0.05 % eye drops in a 1 drp ophthalmic (eye) BID 06/05/23 06/05/23 Unknown History dropperette meloxicam 7.5 mg tablet 7.5 mg PO DAILY 06/05/23 06/05/23 Unknown History Exam Pertinent Lab Results Pertinent Lab Results: Laboratory Tests 04/29/23 06/04/23 18:45 10:24 WBC 8.7 Hgb 16.4 Hct 47.3 Plt Count 198 Sodium 141 Potassium 4.2 Chloride 104 Carbon Dioxide 29 BUN 14 Creatinine 0.90 Narrative Narrative: EKG 03/2023 Vent. Rate : 064 BPM Atrial Rate : 064 BPM P-R Int : 160 ms QRS Dur : 094 ms QT Int : 370 ms P-R-T Axes : 046 076 063 degrees QTc Int : 381 ms Normal sinus rhythm Normal ECG When compared with ECG of 20-NOV-2019 02:13, No significant change was found Assessment and Plan Assessment Anesthesia Assessment: Chart Reviewed Final Anesthetic Review Family History of Problems with Anesthesia: No History of Problems with Anesthesia: No Documented by User: Suleiman Frausto MD 06/12/23 10:18 PMFSH Past Medical History Medical History History of smoking at least 1 pack per day for at least 30 years Personal history of nicotine dependence History of COVID-19 Obesity (BMI 30-39.9) Insomnia COPD (chronic obstructive pulmonary disease) Allergic rhinitis Ulcerative colitis Family History Family History Father Diabetes HTN (hypertension) Heart attack Mother Skin cancer HTN (hypertension) Diabetes Paternal Aunt Heart attack Sister Skin cancer Surgical History Surgical History History of incisional hernia repair History of cervical spinal surgery History of colonoscopy History of appendectomy History of esophagogastroduodenoscopy (EGD) Social History Social History Household Members: Spouse Housing: Apartment Alcohol intake: never Patient Tobacco Use Status: Former Tobacco user Quit Date: 2011 Tobacco use type: Cigarette Years Smoked: (former smoker - onset 15yo, 1ppd x 36yrs, 35pyh, quit 2011) e-Cigarette/Vaping Use: Never Used Second Hand Smoke Exposure: No service: No Current occupational status: retired Cognitive needs: No Hearing needs: No Vision needs: No Meds Allergies Allergy/AdvReac Type Severity Reaction Status Date / Time Penicillins [PENICILLINS] Allergy Unknown ANAPHYLAXIS Verified 06/05/23 15:47 Home Medications Medication Instructions Recorded Confirmed Last Taken Type escitalopram oxalate 10 mg tablet 10 mg PO DAILY 01/18/21 06/05/23 Unknown History (Lexapro) [id number] 300 mcg-K 60 1 tab PO DAILY 01/18/21 06/05/23 Unknown History mcg-lycop 600 mcg-lutein 300 mcg tablet (Centrum Silver Men) zolpidem 10 mg tablet 10 mg PO BEDTIME PRN 01/18/21 06/05/23 Unknown History bupropion HCl 300 mg 24 hr tablet, 300 mg PO QAM 08/13/21 06/05/23 Unknown History extended release emollient combination no.32 topical 08/13/21 06/05/23 Unknown History (EpiCeram topical emulsion, extended release) propranolol 80 mg capsule,24 80 mg PO BID 08/13/21 06/05/23 Unknown History hr,extended release triamcinolone acetonide 0.1 % 1 appl topical BID-TID 08/13/21 06/05/23 Unknown History topical cream ketoconazole 2 % topical cream appl topical DAILY PRN 01/14/22 06/05/23 Unknown History clonazepam 1 mg tablet 1 mg PO .COMPLEX 01/21/22 06/05/23 Unknown History albuterol sulfate 2.5 mg/3 mL 2.5 mg inhalation Q6H PRN 05/16/22 06/05/23 Unknown History (0.083 %) solution for nebulization cyclosporine 0.05 % eye drops in a 1 drp ophthalmic (eye) BID 06/05/23 06/05/23 Unknown History dropperette meloxicam 7.5 mg tablet 7.5 mg PO DAILY 06/05/23 06/05/23 Unknown History Exam Airway Mallampati Class: II TM Dist: >3cm Neck ROM: Limited Heart: rrr Lungs: cta Assessment and Plan Assessment Anesthesia Assessment: Anesthesia Plan Discussed Final Anesthetic Review NPO: Yes ASA Class: III Final Preanesthetic Review: No Changes in Pt Med Stat, Meds/Allgs Chart Revi ewed, Consent Obtained/Reviewed and Anes Risks/Benef Reviewed Patient Risk: Intermediate Procedure Risk: Intermediate Anesthetic Plan Anesthetic Plan: GA and Agree w/ Assess. and Plan Disposition: Standard PACU
[2023-06-12 11:14] VITALS: BMI 31.7
[2023-06-12] MEDS: Lactated Ringers 1,000 ML 100 ML IVCONT (11:30)
[2023-06-12 11:31] VITALS: BP 131/64; PULSE 61; RESP 18; TEMP 36.6; O2SAT 97
[2023-06-12 11:39] LABS: Glucose, Whole Blood 145 mg/dL (60-115)
--- NOTE | 2023-06-12 11:57 | P.HPSUR_ITS ---
Pre-Procedural Eval Section A Date of Service: 06/12/23 Section B Chief Complaint: Upper abdominal pain, unspecified Relevant Family History (Specify if Yes): No Relevant Social History: None (ex smoker ) Present Medications: see Short Stay Collaborative assessment Medical History: Significant History (History of smoking at least 1 pack per day for at least 30 years Personal history of nicotine dependence History of COVID- 19 Obesity (BMI 30-39.9) Insomnia COPD (chronic obstructive pulmonary disease) Allergic rhinitis Ulcerative colitis) History of Previous Operations: Relevant previous surgery/procedure and date(s) (History of incisional hernia repair History of cervical spinal surgery History of colonoscopy History of appendectomy History of esophagogastroduodenoscopy ( EGD)) Allergies: Allergies Allergy/AdvReac Type Severity Reaction Status Date / Time Penicillins [PENICILLINS] Allergy Unknown ANAPHYLAXIS Verified 06/12/23 11:16 Review of Systems Sugical H&P ROS: Negative: Constitution, Cardiovascular, Respiratory, Neurological, Psychiatric, Hem-Onc, Allergic/Immunologic, Gastrointestinal, Genitourinary, Musculoskeletal, Integumentary, Endocrine and Eyes/Ears/Nose/Throat Exam Surgical H&P Exam: Normal: HEENT, Normal: Heart, Normal: Lungs, Normal: Extremities, Normal: Abdomen, Normal: Skin and Normal: Neurological Plan Diagnosis/Plan: Unchanged I have reviewed the history and physical and performed a pertinent physical examination on my patient. No changes have occurred unless specified. Time Spent With Patient Time: Total time managing care of this patient today ____ minutes.
--- NOTE | 2023-06-12 12:08 | W.PM.OPN ---
Operative Note Operative Note Date of Service: 06/12/23 Narrative: Procedure Description: EGD Indication: abdominal pain Anesthesia: MAC FLEXIBLE TRANSORAL UPPER GASTROINTESTINAL ENDOSCOPY UPPER ENDOSCOPY Consent: Indications for the procedure and potential complications of bleeding, perforation, reaction to medications and missed diagnosis were discussed with the patient and informed consent was obtained. Instrument: Olympus GIF H 190 J mid size upper endoscope Monitoring: Vital signs and clinical assessment, continuous EKG monitoring, Pulse oximetry, Carbon Dioxide monitoring and blood pressure monitoring were done throughout the procedure. Procedure: The patient was placed in the left lateral decubitis position and pre-procedure medications were administered and a bite block was placed. The endoscope was inserted into the mouth and advanced under direct vision to the third part of duodenum. A careful inspection was made as the upper endoscope was withdrawn including a retroflexed examination of the proximal stomach; Findings and interventions are described below. Findings: Larynx:normal Esophagus: GE junction at 40 cm, diaphragm hiatus at 40 cm, no varices or esophagitis. Stomach: Patchy gastric erythema with erosions at antrum. Biopsies were obtained. Grade 3 flap valve on retroflexed examination of the cardia consistent with lax LES Duodenum: Normal bulb and descending duodenum, bx taken Intervention: Biopsies as noted above Impression/Findings: lax LES erosive gastritis PLAN: await bx if H pylori pos then treat --if bx neg for h pylori then breath test after stopping ppi for 2 weeks
[2023-06-12 12:15] VITALS: BP 129/75; PULSE 75; RESP 12; TEMP 36.6; O2SAT 94
[2023-06-12 12:29] VITALS: BP 123/60; PULSE 71; RESP 18; TEMP 36.6; O2SAT 95
== END 2023-06-12 12:55 | disposition home or self-care (01) ==
PROVIDERS: PCP Internal Medicine; Visit Provider Internal Medicine Gastroenterology
PROC: 0DJ08ZZ Inspection of Upper Intestinal Tract, Via Natural or Artificial Opening Endoscopic (ICD-10-PCS; CPT 43235; principal; 2023-06-12 13:00)
DX: K29.60 Other gastritis without bleeding (principal); K22.2 Esophageal obstruction; R10.10 Upper abdominal pain, unspecified; E11.9 Type 2 diabetes mellitus without complications; E78.5 Hyperlipidemia, unspecified; K21.9 Gastro-esophageal reflux disease without esophagitis; K75.81 Nonalcoholic steatohepatitis (NASH); J44.9 Chronic obstructive pulmonary disease, unspecified; F41.1 Generalized anxiety disorder; G25.0 Essential tremor; Z87.891 Personal history of nicotine dependence
CPT/HCPCS: 43239; 82947; 88305; 88342; J2704

== ENCOUNTER → 2023-06-12 10:55 | Outpatient (BNV) | payer OTHER, SELFPAY | PROVIDERS: PCP Internal Medicine; Visit Provider Internal Medicine Gastroenterology | DX: K29.60 Other gastritis without bleeding (principal); K22.4 Dyskinesia of esophagus | CPT/HCPCS: 43239 ==

== ENCOUNTER 2023-06-18 13:45 | Outpatient (AMB) | payer OTHER, SELFPAY ==
[2023-06-18 14:07] VITALS: BMI 31.0
--- NOTE | 2023-06-18 14:07 | A.OFFVIS_ITS ---
Intake VS Expanded 06/18/23 14:07 Height 5 ft 9 in Weight 210 lb 1.608 oz BMI 31.0 Intake Visit Reasons: T2DM Allergies Penicillins [PENICILLINS] Allergy (Unknown, Verified 06/12/23 11:16) ANAPHYLAXIS HPI Nutrition Presentation Details Pt presents for MNT f/u for T2DM Pt reports continuing to work on diet modifications, doing well. Pt reports blood glucose are ranging from 120-180s, lowest glucose in fasting state. Pt reports having 3 meals/day following healthy plate method and keeping hydrated Pt reports contemplating starting low impact physical activity. Most Recent Diabetes Results: Microalb/Creat Ratio 10.4 ug/mg cr (<30) 06/04/23 Cholesterol 203 mg/dL (<200) H 06/04/23 HDL Cholesterol 38 mg/dL (>40) L 06/04/23 Triglycerides 126 mg/dL (<150) 06/04/23 Creatinine 0.90 mg/dL (0.5-1.4) 06/04/23 Blood Urea Nitrogen 14 mg/dL (9-16) 06/04/23 Sodium 141 mmol/L (135-145) 06/04/23 Potassium 4.2 mmol/L (3.3-5.1) 06/04/23 Chloride 104 mmol/L (96-108) 06/04/23 Carbon Dioxide 29 mmol/L (22-29) 06/04/23 Calcium 9.4 mg/dL (8.4-10.2) 06/04/23 AST 41 U/L (5-37) H 06/04/23 ALT 81 U/L (0-40) H 06/04/23 Total Protein 6.8 g/dL (6.5-8.0) 06/04/23 Albumin 4.3 g/dL (3.5-5.0) 06/04/23 [facility] Medical History History of smoking at least 1 pack per day for at least 30 years Personal history of nicotine dependence History of COVID-19 Obesity (BMI 30-39.9) Insomnia COPD (chronic obstructive pulmonary disease) Allergic rhinitis Ulcerative colitis Surgical History History of incisional hernia repair History of cervical spinal surgery History of colonoscopy History of appendectomy History of esophagogastroduodenoscopy (EGD) Family History Father Diabetes HTN (hypertension) Heart attack Mother Skin cancer HTN (hypertension) Diabetes Paternal Aunt Heart attack Sister Skin cancer Social History Household Members: Spouse Housing: Apartment Alcohol intake: never Patient Tobacco Use Status: Former Tobacco user Quit Date: 2011 Tobacco use type: Cigarette Years Smoked: (former smoker - onset 15yo, 1ppd x 36yrs, 35pyh, quit 2011) e-Cigarette/Vaping Use: Never Used Second Hand Smoke Exposure: No service: No Current occupational status: retired Cognitive needs: No Hearing needs: No Vision needs: No Assessment & Plan Assessment & Plan (1) Diabetes: Code(s): E11.9 - Type 2 diabetes mellitus without complications Qualifiers: Diabetes mellitus complication status: without complication Plan wt: 98 kg (97 kg 03/2023) (95 kg 05/2023) Est kcal needs as per MSJ: 2100 (40% carb, 30% protein/fat) Est fluid needs as per 25-30 ml/d: 2450 Est prot per day as per 1 g/kg bw: 98 Recommend fiber intake : 8-10 g per day and gradually increase to 25-28 g per day for women and 35-38 g for men or as tolerated Recommend sodium intake per day : less than 2000 mg Educated patient on: ( R = reviewed V = verbalizes understanding N/R = needs review N/A = not applicable * Food sources of carbohydrate, adequate serving sizes and its role in various health conditions: R ,V * Differences between complex carbohydrates a simple carbohydrates, role of fiber in diet: R * Differences between types of fats and role in diet (mono on saturated fat fatty acids, saturated fatty acids, trans fats): R * Food sources of sodium in salt and healthy modifications for heart health in kidney health: R * Healthy plate method concept: R * Physical activity: Benefits a precaution: R * Hypoglycemia protocol (rule of 15): R * Dietary prevention of Hyperglycemia: R Patient Instructions: Engage in physical activity as able goal 30 minutes 5 days/week unless otherwise specified by doctor Keep hydrated by having water with meals/snacks Include food sources of omega 3 fatty acids, at least one source per day ( fish, nuts, nut oils, seeds and seeds oil) Coding Level of Care Code Nutr Indiv Subseq (14567) Diagnoses Diabetes E11.9 Diabetes mellitus complication status: without complication Time Spent (min) 30
== END 2023-06-18 14:34 | disposition home or self-care (01) ==
PROVIDERS: PCP Internal Medicine; Visit Provider Dietitian, Registered
DX: E11.9 Type 2 diabetes mellitus without complications (principal)

== ENCOUNTER → 2023-06-18 13:45 | Outpatient (BNVA) | payer OTHER, SELFPAY | PROVIDERS: PCP Internal Medicine; Visit Provider Dietitian, Registered | DX: E11.9 Type 2 diabetes mellitus without complications (principal) | CPT/HCPCS: 97803 ==

== ENCOUNTER 2023-07-03 08:16 | Outpatient (REF) | payer OTHER, SELFPAY ==
[2023-07-08 15:00] LABS: H Pylori Breath Test Negative (Negative)
== END 2023-07-03 08:17 | disposition home or self-care (01) ==
LOC: HO.LNP 08:16
PROVIDERS: PCP Internal Medicine; Visit Provider Nurse Practitioner
DX: Z11.2 Encounter for screening for other bacterial diseases (principal)
CPT/HCPCS: 83013; 99211

== ENCOUNTER 2023-07-14 15:26 | Emergency (ER) | payer OTHER, SELFPAY ==
--- NOTE | ~2023-07-14 | XR_ITS ---
EXAMINATION: XR CHEST CLINICAL INFORMATION: Cough COMPARISON: Chest radiograph from 04/29/2023 TECHNIQUE: 2 views of the chest were obtained. FINDINGS: No focal consolidation. No pneumothorax. Trachea is midline. Cardiac mediastinal silhouette is not enlarged. No large pleural effusion. Lower cervical spinal hardware, grossly intact. Soft tissues are unremarkable. XR/XR chest 2V IMPRESSION: No acute cardiopulmonary process.
--- NOTE | 2023-07-14 15:52 | ED.GENADULT ---
HPI - General Adult General Chief complaint: Upper Respiratory Symptoms Stated complaint: Covid+ fever,hoarse voice,cough Time Seen by Provider: 07/14/23 16:30 Source: patient Mode of arrival: ambulatory Limitations: no limitations History of Present Illness HPI narrative: Patient is a 62 year old assigned male at with a history of DM presenting to the emergency department today with body aches, cough, and a positive home COVID-19 test. Patient states that over the last few days he has had worsening body aches and a cough. Patient states that he tested positive for COVID-19 at home. Patient denies any dizziness, lightheadedness, abdominal pain, nausea, vomiting, fever, chills, blurry vision, double vision, loss of vision, chest pain, difficulty breathing, shortness of breath, back pain, night sweats, pain with urination, increased urinary frequency, increased urinary urgency, blood in his urine or stool, syncope or a near syncopal episode, recent trauma or falls, bowel incontinence, bladder incontinence, bowel retention, bladder retention, or any other complaints at this time. Onset (ago): day(s) Severity: mild Relieving factors: none Exacerbating factors: none Associated symptoms: cough Treatments prior to arrival: none Related Data Home Medications Medication Instructions Recorded Confirmed escitalopram oxalate 10 mg tablet 10 mg PO DAILY 01/18/21 06/05/23 (Lexapro) [id number] 300 mcg-K 60 1 tab PO DAILY 01/18/21 06/05/23 mcg-lycop 600 mcg-lutein 300 mcg tablet (Centrum Silver Men) zolpidem 10 mg tablet 10 mg PO BEDTIME PRN 01/18/21 06/05/23 bupropion HCl 300 mg 24 hr tablet, 300 mg PO QAM 08/13/21 06/05/23 extended release emollient combination no.32 topical 08/13/21 06/05/23 (EpiCeram topical emulsion, extended release) propranolol 80 mg capsule,24 80 mg PO BID 08/13/21 06/05/23 hr,extended release triamcinolone acetonide 0.1 % 1 appl topical BID-TID 08/13/21 06/05/23 topical cream ketoconazole 2 % topical cream appl topical DAILY PRN 01/14/22 06/05/23 clonazepam 1 mg tablet 1 mg PO .COMPLEX 01/21/22 06/05/23 albuterol sulfate 2.5 mg/3 mL 2.5 mg inhalation Q6H PRN 05/16/22 06/05/23 (0.083 %) solution for nebulization cyclosporine 0.05 % eye drops in a 1 drp ophthalmic (eye) BID 06/05/23 06/05/23 dropperette meloxicam 7.5 mg tablet 7.5 mg PO DAILY 06/05/23 06/05/23 Previous Rx's Medication Instructions Recorded hydrocortisone 2.5 % topical cream 1 appl [place] BID hemorrhoids #30 grams 08/13/21 with perineal applicator (Proctosol HC) ropinirole 1 mg tablet 1 mg PO BEDTIME #30 tabs 12/19/21 Ventolin HFA 90 mcg/actuation 2 puff PO QID PRN for wheezing #18 06/10/22 aerosol inhaler (albuterol sulfate) grams tadalafil 20 mg tablet 20 mg PO ONCE PRN sexual activity 07/05/22 30 days #30 tabs bath mat #1 ea 09/06/22 metformin 500 mg tablet 500 mg PO BID 90 days #180 tabs 01/28/23 shower head #1 ea 01/28/23 blood-glucose meter (OneTouch #1 ea 01/29/23 Ultra2 Meter) clotrimazole-betamethasone 1 1 appl topical BID #45 grams 03/12/23 %-0.05 % topical cream oxybutynin chloride 10 mg 10 mg PO DAILY #90 tabs 03/12/23 tablet,extended release 24 hr Incruse Ellipta 62.5 mcg/actuation 1 inh PO DAILY #30 ea 03/24/23 powder for inhalation (umeclidinium) cyclobenzaprine 10 mg tablet 10 mg PO TID PRN muscle spasm #20 04/30/23 tabs bisacodyl 5 mg tablet,delayed 10 mg (2 x 5 mg) PO BEDTIME #60 05/20/23 release tabs dexlansoprazole 60 mg 60 mg PO DAILY #30 caps 05/20/23 capsule,biphase delayed release dicyclomine 20 mg tablet 20 mg PO BID 30 days #60 tabs 05/20/23 mesalamine 1.2 gram tablet,delayed 2.4 g (2 x 1.2 gram) PO DAILY #180 05/20/23 release tabs simethicone 125 mg capsule (Gas 125 mg PO BID-QID #120 caps 05/20/23 Relief Extra Strength) atorvastatin 20 mg tablet 20 mg PO BEDTIME 90 days #90 tabs 06/05/23 blood sugar diagnostic (OneTouch #100 ea 06/05/23 Ultra Test strips) lancets 30 gauge (OneTouch #100 ea 06/05/23 UltraSoft 2 Lancet) sucralfate 100 mg/mL oral 10 ml PO QIDACHS #1,000 mL 06/27/23 suspension montelukast 10 mg tablet 10 mg PO DAILY #90 tabs 07/01/23 benzonatate 100 mg capsule 100 mg PO BID PRN cough 7 days #14 07/14/23 caps Allergies Allergy/AdvReac Type Severity Reaction Status Date / Time Penicillins [PENICILLINS] Allergy Unknown ANAPHYLAXIS Verified 07/14/23 15:54 Review of Systems Constitutional: Constitutional: Reports no additional constitutional complaints, Reports body ache(s), Denies chills, Denies fever(s) and Denies night sweats Eyes: Eyes: Reports no additional eye complaints, Denies blurry vision, Denies change in vision, Denies diplopia, Denies eye discharge, Denies loss of vision and Denies eye pain ENT: Denies dizziness Cardiovascular: Cardiovascular: Reports no additional cardiovascular complaints, Denies chest pain, Denies lightheadedness, Denies Loss of Consciousness and Denies dyspnea Respiratory: Respiratory: Reports no additional respiratory complaints, Reports cough and Denies dyspnea Gastrointestinal: Gastrointestinal: Reports no additional gastrointestinal complaints, Denies abdominal pain, Denies melena, Denies hematochezia, Denies change in bowel habits and Denies change in stool character Genitourinary: Genitourinary: Reports no additional male genitourinary complaints, Denies hematuria, Denies oliguria, Denies difficulty urinating, Denies dysuria, Denies urinary frequency, Denies urinary hesitancy, Denies urinary incontinence and Denies urinary urgency Musculoskeletal: Musculoskeletal: Reports no additional musculoskeletal complaints, Denies numbness and Denies tingling Neurologic: Denies dizziness, Denies loss of vision, Denies numbness and Denies tingling Psychiatric: Psychiatric: Reports no additional psychiatric complaints Endocrine: Endocrine: Reports no additional endocrine complaints Hematologic/Lymphatic: Hematologic/Lymphatic: Reports no additional hematologic/lymphatic complaints Allergic/Immunologic: Allergic/Immunologic: Reports no additional allergic/immunologic complaints [facility] Past Medical History Attestation statement: The following information was validated with the patient. Source: old records reviewed and nursing notes reviewed Onset Date is defined in the Problem List Problems that require an onset date and time if occurred within 24 hrs of arrival to the ED Aortic Dissection and Rupture; Neurologic impairment; Cardiopulmonary Arrest; Endotracheal Intubation; Insertion or Replacement of Mechanical Circulatory Assist Device Medical History Hyperlipidemia LDL goal <70 Upper abdominal pain History of smoking at least 1 pack per day for at least 30 years Balanitis Screening PSA (prostate specific antigen) Abdominal wall hernia Physical exam Elevated fasting glucose Personal history of nicotine dependence Pain in both feet Neck pain Lumbar pain Impaired glucose tolerance Abdominal bloating Obesity (BMI 30-39.9) Abdominal cramping History of COVID-19 Insomnia COPD (chronic obstructive pulmonary disease) Allergic rhinitis Ulcerative colitis Surgical History History of incisional hernia repair History of cervical spinal surgery History of colonoscopy History of appendectomy History of esophagogastroduodenoscopy (EGD) Family History Family History Father Diabetes HTN (hypertension) Heart attack Mother Skin cancer HTN (hypertension) Diabetes Paternal Aunt Heart attack Sister Skin cancer Social History Social History Household Members: Spouse Housing: Apartment Alcohol intake: never Patient Tobacco Use Status: Former Tobacco user Quit Date: 2011 Tobacco use type: Cigarette Years Smoked: (former smoker - onset 15yo, 1ppd x 36yrs, 35pyh, quit 2011) e-Cigarette/Vaping Use: Never Used Second Hand Smoke Exposure: No Advance Directives: No Advance Directives Information Provided: No service: No Current occupational status: retired Cognitive needs: No Hearing needs: No Vision needs: No Physical Exam ED Vital Signs: Vital Signs - 24 hr 07/14/23 15:54 Temperature 99.1 F Pulse Rate 74 Respiratory Rate 16 Blood Pressure 161/86 H Pulse Oximetry 97 Oxygen Delivery Method Room Air BMI result Body Mass Index 30.8 Const General: cooperative, no acute distress, alert and awake Nutritional Appearance: well nourished Orientation/consciousness: patient oriented x3 Limitations: no limitations HENMT Head: Yes normal to inspection and Yes atraumatic Ears: hearing grossly normal bilaterally and external ears normal General nose exam: Normal external nose present, no nasal discharge noted and no epistaxis Face and sinus: Yes normal facial exam, No abrasion and No laceration Mouth: Normal oral and palatal mucosa present, no drooling and no muffled voice Eyes General: appearance normal, both eyes and all related structures Periorbital: periorbital findings normal Eyelids: Yes eyelids normal Conjunctivae: conjunctivae normal Pupils: Equal, round and reactive pupils present EOM: EOMs intact bilaterally Neck Neck: Yes normal visual inspection, Yes full ROM and Yes no lymphadenopathy Chest Chest palpation & inspection: normal inspection of the chest Resp Effort & Inspection: normal respiratory effort and able to speak in complete sentences Auscultation: clear to auscultation bilaterally GI Inspection: Yes normal to inspection Neuro General: patient oriented x3 and moves all extremities Cranial nerves: Yes Equal, round and reactive pupils present Cognition (Neuro): normal cognition Motor exam (neuro): 5/5 motor strength present throughout Sensory Exam: Normal double simultaneous stimulation for sensation Coordination: [id number] test normal Extrem General: Yes normal to inspection, Yes full ROM and Yes capillary refill normal Psych Appearance: grossly normal Mental Status: mental status grossly normal Affect: normal affect Attitude: cooperative Thought process: Normal thought process present Thought content: Normal thought content present Insight: Good insight present (Psych) Course Course Course Narrative: RME:?62 yo male w/ hx of diabetes, COPD, obesity, ulcerative colitis, GERD, GUZMAN, constipation, inguinal hernia here w/ worsening congestion, cough, and hoarse voice, body aches, CLAUDIO after testing positive for COVID 20 days ago. denies fever, N/V/D. lungs cta b/l. plan for serology, CXR Full HPI, ROS and PE to be performed by the primary ED provider. Medical Decision Making Medical Decision Making [facility] Narrative: Patient is a 62 year old assigned male at with a history of DM presenting to the emergency department today with body aches, cough, and a positive COVID-19 test. Patient's physical exam was unremarkable. Patient's chest x-ray showed no acute process. Patient's COVID-19 test was positive. Patient's influenza test was negative. I explained my physical exam findings as well as all test results to the patient. I answered all questions asked by the patient. I stressed the importance of the patient taking his medication as prescribed. I stressed the importance of the patient following up with his primary care provider. I stressed the importance of the patient returning to the emergency department immediately if his symptoms were to worsen or if he were to develop any dizziness, shortness of breath, difficulty breathing, chest pain, blurry vision, loss of vision, nausea, vomiting, abdominal pain, fever, chills, back pain, or any other complaints. Patient verbalized agreement and understanding with this treatment plan and discharge. Differential Diagnosis Differential Diagnoses: The differential diagnosis associated with the presentation includes COVID-19 Cough Influenza Admission/Observation Consideration of admission/observation: Escalation of care including admission/observation considered Patient would have been admitted to the hospital had his work up had any findings where hospital admission was appropriate and his clinical presentation warranted hospital admission. Lab Data [facility] Lab Attestation statement: I reviewed the patient's lab results. My interpretation of these results are in the [facility] Rationale portion of this note. Labs: Lab Results 07/14/23 Range/Units 16:44 COVID-19 (SYDNIE) Positive A (Negative) COVID-19 Clin Com See Note Influenza Type A (JEMIMA) Negative (Negative) Influenza Type B (JEMIMA) Negative (Negative) Influenza A & B Note See Note Independent Interpretation I performed an independent interpretation of an: Plain X-Ray Interpretation: My interpretation is in agreement with the radiologist's impression of this imaging study. EXAMINATION: XR CHEST CLINICAL INFORMATION: Cough COMPARISON: Chest radiograph from 04/29/2023 TECHNIQUE: 2 views of the chest were obtained. FINDINGS: No focal consolidation. No pneumothorax. Trachea is midline. Cardiac mediastinal silhouette is not enlarged. No large pleural effusion. Lower cervical spinal hardware, grossly intact. Soft tissues are unremarkable. XR/XR chest 2V IMPRESSION: No acute cardiopulmonary process. Dictated By: Jovanny Breaux MD Signed By: Electronically signed by Jovanny Breaux MD 07/14/23 8824 Radiology Impression Discussion of test interpretation with radiology: I have reviewed the radiologist's reading. Prescription Management I considered prescription management with: Other (patient prescribed a cough suppressant) Chronic Conditions Patient?s care impacted by: Diabetes Discharge Plan Discharge Clinical Impression: COVID-19 Patient Disposition: Home, Self-Care Instructions: COVID-19 (Coronavirus Disease 2019) (ED) Additional Instructions: Follow up with your primary care provider. Return to the emergency department immediately if your symptoms worsen or if you develop any dizziness, shortness of breath, difficulty breathing, chest pain, blurry vision, loss of vision, nausea, vomiting, abdominal pain, fever, chills, back pain, or any other complaints. Nica un seguimiento con gamino proveedor de atenci?n primaria. Regrese al departamento de emergencias inmediatamente si hyun s?ntomas empeoran o si presenta mareos, dificultad para respirar, dificultad para respirar, dolor en el pecho, visi?n borrosa, p?rdida de la visi?n, n?useas, v?mitos, dolor abdominal, fiebre, escalofr?os, dolor de espalda o cualquier otras quejas. Prescriptions: New benzonatate 100 mg capsule 100 mg PO BID PRN (Reason: cough) 7 Days Qty: 14 0RF No Action ropinirole 1 mg tablet 1 mg PO BEDTIME Qty: 30 0RF albuterol sulfate [Ventolin HFA] 90 mcg/actuation HFA aerosol inhaler 2 puff PO QID PRN (Reason: for wheezing) Qty: 18 0RF (DME) bath mat See Rx Instructions .Route .MEDSUPPLY Qty: 1 0RF Rx Instructions: As directed (DME) blood-glucose meter [OneTouch Ultra2 Meter] [facility] See Rx Instructions .Route Qty: 1 0RF Rx Instructions: As directed Incruse Ellipta 62.5 mcg/actuation blister with device 1 inh PO DAILY Qty: 30 3RF sucralfate 100 mg/mL suspension 10 ml PO QIDACHS Qty: 1000 0RF montelukast 10 mg tablet 10 mg PO DAILY Qty: 90 0RF cyclobenzaprine 10 mg tablet 10 mg PO TID PRN (Reason: muscle spasm) Qty: 20 0RF zolpidem 10 mg tablet 10 mg PO BEDTIME PRN escitalopram oxalate [Lexapro] 10 mg tablet 10 mg PO DAILY Centrum Silver Men 300-600-300 mcg tablet 1 tab PO DAILY clonazepam 1 mg tablet 1 mg PO .COMPLEX Rx Instructions: 1 mg PO 1 tab in pm and 1/2 tab Qam; metformin 500 mg tablet 500 mg PO BID 90 Days Qty: 180 1RF (DME) shower head See Rx Instructions .Route .MEDSUPPLY Qty: 1 0RF Rx Instructions: As directed meloxicam 7.5 mg tablet 7.5 mg PO DAILY cyclosporine 0.05 % dropperette 1 drp ophthalmic (eye) BID atorvastatin 20 mg tablet 20 mg PO BEDTIME 90 Days Qty: 90 1RF (DME) OneTouch Ultra Test Strip See Rx Instructions .Route Qty: 100 1RF Rx Instructions: Use 1 test strip once a day (DME) lancets [OneTouch UltraSoft 2 Lancet] [facility] See Rx Instructions .Route Qty: 100 1RF Rx Instructions: Use 1 lancet once a day tadalafil 20 mg tablet 20 mg PO ONCE PRN (Reason: sexual activity) 30 Days Qty: 30 0RF Rx Instructions: may use up to 1.5 tabs ketoconazole 2 % cream topical DAILY PRN albuterol sulfate 2.5 mg /3 mL (0.083 %) solution for nebulization 2.5 mg inhalation Q6H PRN propranolol 80 mg capsule,extended release 24 hr 80 mg PO BID bupropion HCl 300 mg tablet extended release 24 hr 300 mg PO QAM triamcinolone acetonide 0.1 % cream 1 appl topical BID-TID EpiCeram Emulsion, Extended Release topical hydrocortisone [Proctosol HC] 2.5 % cream with perineal applicator 1 appl [place] BID Qty: 30 6RF oxybutynin chloride 10 mg tablet extended release 24hr 10 mg PO DAILY Qty: 90 1RF clotrimazole-betamethasone 1-0.05 % cream 1 appl topical BID Qty: 45 0RF Rx Instructions: apply bid for 7 - 10 days then prn dicyclomine 20 mg tablet 20 mg PO BID 30 Days Qty: 60 3RF dexlansoprazole 60 mg capsule,biphase delayed releas 60 mg PO DAILY Qty: 30 6RF mesalamine 1.2 gram tablet,delayed release (DR/EC) 2.4 g PO DAILY Qty: 180 6RF simethicone [Gas Relief Extra Strength] 125 mg capsule 125 mg PO BID-QID Qty: 120 6RF bisacodyl 5 mg tablet,delayed release (DR/EC) 10 mg PO BEDTIME Qty: 60 6RF Referrals: Shelli Kwan MD [Primary Care Provider] - Interventions: ED Discharge Assessment Last Done: 07/14/23 17:48 Discharge Date/Time: 07/14/23 17:48 Print Language: Indonesian
[2023-07-14 15:54] VITALS: BP 161/86; PULSE 74; RESP 16; TEMP 37.3; O2SAT 97; BMI 30.8
[2023-07-14 16:56] LABS: COVID-19 Test Positive (Negative); IDNOW Serial# 08D9AD1C
[2023-07-14 17:04] LABS: IDNOW Serial# 9DB6401D; Influenza A Negative (Negative); Influenza B2 Negative (Negative)
== END 2023-07-14 17:48 | disposition home or self-care (01) ==
PROVIDERS: Physician Assistant Medical; Emergency Provider Emergency Medicine; PCP Internal Medicine
DX: U07.1 COVID-19 (principal); R05.9 Cough, unspecified; R50.9 Fever, unspecified; Z79.899 Other long term (current) drug therapy
CPT/HCPCS: 71046; 87502; 87635; 99282; 99283

== ENCOUNTER 2023-09-03 09:55 | Outpatient (AMB) | payer OTHER, SELFPAY ==
[2023-09-03 10:00] VITALS: BP 143/77; PULSE 70; BMI 30.7
--- NOTE | 2023-09-03 10:00 | MHC.OFFVIS ---
Intake Vital Signs 09/03/23 10:00 Height 5 ft 9 in Weight 207 lb 10.807 oz BMI 30.7 BP 143/77 H Blood Pressure Location Lt brachial Position Sitting Pulse 70 Intake Visit Reasons: s/p EGD Intake Note: Patient returns in follow up s/p EGD on 06/12/24. CC: Patient reports doing well today. Denies having any new GI concerns. [employer] Required: Yes [employer] G[employer]herer Name: Erika MADRIGAL Accompanied by: Self / Same As Patient Allergies Penicillins [PENICILLINS] Allergy (Unknown, Verified 09/03/23 10:08) ANAPHYLAXIS HPI s/p EGD HPI Details Assessment & Plan (1) Chronic idiopathic constipation: Code(s): K59.04 - Chronic idiopathic constipation (2) GERD (gastroesophageal reflux disease): Code(s): K21.9 - Gastro-esophageal reflux disease without esophagitis Qualifiers: Esophagitis presence: without esophagitis Qualified Code(s): K21.9 - Gastro-esophageal reflux disease without esophagitis (3) GUZMAN (nonalcoholic steatohepatitis): Comment: BASELINE LABS: 10/2018 Hep B immune, not to Hep A or C, HIV negative, autoimmune work up neg, AFP 2.9, Ferritin 532, GGT 66. AST/ALT 62/151 Current Laboratory Tests Laboratory Tests 08/26/22 09:45 Estimated GFR > 60 Fasting Glucose 143 H Total Bilirubin 0.8 AST 66 H ALT 135 H Alkaline Phosphatase 84 ULTRASOUND OF THE ABDOMEN 08/14/22 IMPRESSION: There is generalized increase in hepatic echotexture, consistent with fatty infiltration or hepatocellular disease. Characteristic pericholecystic sparing favors fatty infiltration. Provided history of GUZMAN noted. No focal hepatic mass or intrahepatic biliary dilatation is seen. ? Code(s): K75.81 - Nonalcoholic steatohepatitis (GUZMAN) (4) Ulcerative colitis: Code(s): K51.90 - Ulcerative colitis, unspecified, without complications (5) Sessile colonic polyp: Comment: (07/31/21 scope=2 sessile TA - repeat 3 years in 2024) Code(s): K63.5 - Polyp of colon (6) Diabetes: Code(s): E11.9 - Type 2 diabetes mellitus without complications Qualifiers: Diabetes mellitus complication status: without complication (7) Abdominal cramping: Code(s): R10.9 - Unspecified abdominal pain (8) Upper abdominal pain: Code(s): R10.10 - Upper abdominal pain, unspecified Plan [place] #Angel Live His is doing better, but has back pain r/t a benign tumor removed. He is seeing a supervisor blueprinting and photocopy now for NIDDM. His transaminases have significantly improved with better control, he is also on metformin 500mg bid. We discuss is significant incisional hernias he seems to have a perceived increase in the size of the one to the upper left to the incisional line. The CT ordered by his PCP does show some areas of increased problems in the mesh and diastasis recti. If this becomes painful he may need to speak to a surgeon - but weight loss would go a long to helping to prevent failure of his mesh r/t abdominal adipose tissue and pressure and I counselled him as such. He had an episode of severe painful stabbing pain in the RUQ/ribs that happened 04/29 and presented to our ER. He had this pain in the past when in [place] but it was not as severe. He was given flexeril and a GI cocktail and now he has continued soreness but now across the bilateral upper quads equally. He says he is moving his bowels well, but given the path he is tracing may be the bowels or may be mskskel. He did not feel that the flexeral helped. THe ER also recommended an EGD, so we will get this since he has not had this in the past. Also a trial of bentyl if the pain returns to see if this helps if it is bowel spasm. He also had a recent cervical spine injection preceding the pain by about a week. Its possible that there was some mild prednisone leak effecting GI motility. This was done at [facility]. He may be having a spinal ablation in the future, but this is not what was done previously (apparently this may be pending [place] via insurance). THis was to treat right arm pain. ROV 3 mos and after EGD. Orders: Orders EGD with Amaro - Emilia I Use Only 05/20/23 R10.10 - Upper abd ominal pain, unspe cified Medications: New dicyclomine 20 mg PO BID 60 ta bs 3RF 30 days R10.9 - Unspecifie d abdominal pain Changed From mesalamine 2.4 grams (2 x 1.2 gram) PO DAILY 18 0 tabs 6RF K51.90 - Ulcerativ e colitis, unspeci fied, without comp lications To mesalamine 2.4 grams (2 x 1.2 gram) PO DAILY 18 0 tabs 6RF K51.90 - Ulcerativ e colitis, unspeci fied, without comp lications Refilled simethicone (Gas R elief Extra Streng th) 125 mg PO BID-QID 120 caps 6RF R14.0 - Abdominal distension (gaseou s) dexlansoprazole 60 mg PO DAILY 30 caps 6RF K21.9 - Gastro-eso phageal reflux dis ease without esoph agitis bisacodyl 10 mg (2 x 5 mg) P O BEDTIME 60 tabs 6RF K59.04 - Chronic i diopathic constipa tion EGD 06/12/23 Findings: Larynx:normal Esophagus: GE junction at 40 cm, diaphragm hiatus at 40 cm, no varices or esophagitis. Stomach: Patchy gastric erythema with erosions at antrum. Biopsies were obtained. Grade 3 flap valve on retroflexed examination of the cardia consistent with lax LES Duodenum: Normal bulb and descending duodenum, bx taken Intervention: Biopsies as noted above Impression/Findings: lax LES erosive gastritis BIOPSY Received: 06/12/23 Diagnosis A. Duodenum, biopsy: Duodenal mucosa with preserved villi and no specific change. B. Stomach, biopsy: Active erosive gastritis with reactive mucosal changes; negative for H pylori, intestinal metaplasia and dysplasia TODAY'S VISIT [place] #KAITLIN James He feels well now and he feels that the bentyl was helpful with his abd pain. Someone told him to stop his PPI 2 weeks prior to his EGD and he really suffered!, This also caused him sinus problems. Apparently, he was RX'd carafate in the interim. (Procedure was [place] and there appears that there was a LOT that happened not made aware to me). Given his erosive gastritis, he likely should not d/c any PPI in the future. He has more carafate at home, but he stopped it after 7-8 days. I would like him to complete the carafate 20cc q noon to avoid blocking another medications. He has not suffered any CIC wtih this. HIS CURRENT GI REGIMEN CONSISTS OF BISACODYL, Dexilant, dicyclomine, mesalamine, simethicone, sucralfate. ROV 3 mos. PFSH Medical History Hyperlipidemia LDL goal <70 Upper abdominal pain History of smoking at least 1 pack per day for at least 30 years Balanitis Screening PSA (prostate specific antigen) Abdominal wall hernia Physical exam Elevated fasting glucose Personal history of nicotine dependence Pain in both feet Neck pain Lumbar pain Impaired glucose tolerance Abdominal bloating Obesity (BMI 30-39.9) Abdominal cramping History of COVID-19 Insomnia COPD (chronic obstructive pulmonary disease) Allergic rhinitis Ulcerative colitis Surgical History History of incisional hernia repair History of cervical spinal surgery History of colonoscopy History of appendectomy History of esophagogastroduodenoscopy (EGD) Family History Father Diabetes HTN (hypertension) Heart attack Mother Skin cancer HTN (hypertension) Diabetes Paternal Aunt Heart attack Sister Skin cancer Social History Household Members: Spouse Housing: Apartment Alcohol intake: never Patient Tobacco Use Status: Former Tobacco user Quit Date: 2011 Tobacco use type: Cigarette Years Smoked: (former smoker - onset 15yo, 1ppd x 36yrs, 35pyh, quit 2011) e-Cigarette/Vaping Use: Never Used Second Hand Smoke Exposure: No service: No Current occupational status: retired Cognitive needs: No Hearing needs: No Vision needs: No Review of Systems Const Denies fatigue, Denies fever(s), Denies night sweats, Denies poor appetite and Denies weight loss ENT Reports Normal hearing present, Denies dental pain, Denies dysphagia, Denies hearing loss, Denies mouth pain, Denies odynophagia, Denies throat swelling, Denies tongue swelling and Reports other (Dentition adequate) Card Reports no additional complaints Resp Reports no additional complaints GI Details: Denies abdominal pain, Denies melena, Reports bloating, Denies hematochezia, Reports constipation, Denies GI cramping, Denies dysphagia, Denies excessive flatus, Denies early satiety, Reports heartburn, Denies diarrhea, Denies nausea, Denies odynophagia, Denies vomiting and Denies hematemesis Skin/Breast Denies pruritus, Denies lesions, Denies rash and Denies jaundice Neuro Reports Normal hearing present, Denies Abnormal speech present and Reports memory loss Psych Reports memory loss Endo Denies fatigue Aller/Immun Denies throat swelling and Denies tongue swelling Physical Exam Vital Signs: Last Vital Signs Pulse 70 09/03/23 10:00 BP 143/77 H 09/03/23 10:00 BMI result Body Mass Index 30.7 Const General: cooperative, no acute distress, well developed and well groomed Nutritional Appearance: well nourished and obese centrally obese Orientation/consciousness: oriented to person, oriented to place and oriented to time Limitations: language barrier HEENT Head: Yes normocephalic and Yes atraumatic Eyes General: appearance normal, both eyes and all related structures Pupils: Equal, round and reactive pupils present Neck Neck: Yes normal visual inspection and Yes no lymphadenopathy Thyroid: Thyroid normal Resp Effort & Inspection: normal respiratory effort and able to speak in complete sentences Auscultation: clear to auscultation bilaterally Cardio Rate: regular rate Rhythm: regular rhythm Heart sounds: Normal, physiologic split S2 sound present Peripheral pulses: radial pulses present and posterior tibial pulses present GI Inspection: No distended, No Abdominal panniculus present and Yes obesity Palpation (GI): Soft to palpation, nontender, no guarding, not rigid and No hepatosplenomegaly present Percussion: Yes normal to percussion Auscultation: normal bowel sounds Rectal Exam - Male: Yes deferred Skin General skin exam: no rashes or lesions noted, turgor normal, skin not dry, no jaundice, No spider nevi and no striae Rashes: no rashes Nails: normal Neuro General: oriented to person, oriented to place and oriented to time Cranial nerves: Yes Equal, round and reactive pupils present and Yes Normal hearing present Speech: No Abnormal speech present Extrem General: Yes normal to inspection, No clubbing, No cyanosis and No edema Psych Appearance: grossly normal and well kempt Mental Status: mental status grossly normal Speech and movement: Normal speech and movement present Affect: normal affect Attitude: cooperative Thought process: Normal thought process present and not confabulating Thought content: Normal thought content present Insight: Limited insight present (Psych) Judgement: Limited judgement present (Psych) Results Reviewed Results Reviewed: Laboratory Tests 06/04/23 10:24 Total Bilirubin 0.8 AST 41 H ALT 81 H Alkaline Phosphatase 75 Assessment & Plan Assessment & Plan (1) Chronic idiopathic constipation: Code(s): K59.04 - Chronic idiopathic constipation (2) GERD (gastroesophageal reflux disease): Code(s): K21.9 - Gastro-esophageal reflux disease without esophagitis Qualifiers: Esophagitis presence: without esophagitis Qualified Code(s): K21.9 - Gastro-esophageal reflux disease without esophagitis (3) GUZMAN (nonalcoholic steatohepatitis): Comment: BASELINE LABS: 10/2018 Hep B immune, not to Hep A or C, HIV negative, autoimmune work up neg, AFP 2.9, Ferritin 532, GGT 66. AST/ALT 62/151 Current Laboratory Tests Laboratory Tests 06/04/23 10:24 Total Bilirubin 0.8 AST 41 H ALT 81 H Alkaline Phosphatase 75 ULTRASOUND OF THE ABDOMEN 08/14/22 IMPRESSION: There is generalized increase in hepatic echotexture, consistent with fatty infiltration or hepatocellular disease. Characteristic pericholecystic sparing favors fatty infiltration. Provided history of GUZMAN noted. No focal hepatic mass or intrahepatic biliary dilatation is seen. ? Code(s): K75.81 - Nonalcoholic steatohepatitis (GUZMAN) (4) Ulcerative colitis: Code(s): K51.90 - Ulcerative colitis, unspecified, without complications Plan [place] #Erika, KAITLIN He feels well now and he feels that the bentyl was helpful with his abd pain. Someone told him to stop his PPI 2 weeks prior to his EGD and he really suffered!, This also caused him sinus problems. Apparently, he was RX'd carafate in the interim. (Procedure was [place] and there appears that there was a LOT that happened not made aware to me). Given his erosive gastritis, he likely should not d/c any PPI in the future. He has more carafate at home, but he stopped it after 7-8 days. I would like him to complete the carafate 20cc q noon to avoid blocking another medications. He has not suffered any CIC wtih this. HIS CURRENT GI REGIMEN CONSISTS OF BISACODYL, Dexilant, dicyclomine, mesalamine, simethicone, sucralfate. ROV 3 mos. Next appointment get repeat ultrasound and testing to monitor GUZMAN Medications: Changed From sucralfate 10 mL PO QIDACHS 1,000 mL 0RF To sucralfate 20 mL PO QNOON 1,000 mL 0RF Refilled simethicone (Gas Relief Extra Strength) 125 mg PO BID-QID 120 caps 6RF R14.0 - Abdominal distension (gaseous) mesalamine 2.4 grams (2 x 1.2 gram) PO DAILY 180 tabs 6RF K51.90 - Ulcerative colitis, unspecified, without complications dexlansoprazole 60 mg PO DAILY 30 caps 6RF K21.9 - Gastro-esophageal reflux disease without esophagitis bisacodyl 10 mg (2 x 5 mg) PO BEDTIME 60 tabs 6RF K59.04 - Chronic idiopathic constipation Coding Level of Care Code Est Pt Level 3 (55460) Diagnoses Chronic idiopathic constipation K59.04 Gastroesophageal reflux disease without esophagitis K21.9 Esophagitis presence: without esophagitis GUZMAN (nonalcoholic steatohepatitis) K75.81 Ulcerative colitis K51.90
== END 2023-09-03 10:56 | disposition home or self-care (01) ==
PROVIDERS: PCP Internal Medicine; Visit Provider Nurse Practitioner
DX: K59.04 Chronic idiopathic constipation (principal); K21.9 Gastro-esophageal reflux disease without esophagitis; K75.81 Nonalcoholic steatohepatitis (NASH); K51.90 Ulcerative colitis, unspecified, without complications
CPT/HCPCS: 99213

== ENCOUNTER → 2023-09-03 09:55 | Outpatient (BNVA) | payer OTHER, SELFPAY | PROVIDERS: PCP Internal Medicine; Visit Provider Nurse Practitioner | DX: K59.04 Chronic idiopathic constipation (principal); K21.9 Gastro-esophageal reflux disease without esophagitis; K75.81 Nonalcoholic steatohepatitis (NASH); K51.90 Ulcerative colitis, unspecified, without complications | CPT/HCPCS: 99212 ==

== ENCOUNTER 2023-09-10 19:34 | Emergency (ER) | payer OTHER, SELFPAY ==
--- NOTE | ~2023-09-10 | XR_ITS ---
EXAMINATION: XR CHEST CLINICAL INFORMATION: Dizziness. Weakness. COMPARISON: Chest radiograph dated 07/14/2023. TECHNIQUE: 2 views of the chest were obtained. FINDINGS: No airspace consolidation. No pleural effusion or pneumothorax. Stable cardiac mediastinal silhouette. Partially visualized cervical spine orthopedic hardware. XR/XR chest 2V IMPRESSION: No acute cardiopulmonary findings.
--- NOTE | ~2023-09-10 | CT_ITS ---
EXAMINATION: CT head/brain wo IV con CLINICAL INFORMATION: Reason for Exam dizziness, weakness COMPARISON: CT head without contrast 09/14/2018 TECHNIQUE: Contiguous axial imaging was performed from the skull base to vertex without intravenous contrast. Sagittal and coronal reformatted images were obtained. This CT examination was performed using dose optimization techniques as appropriate, variously including the following: * Automated exposure control * Adjustment of mA and/or kV according to patient size (this includes techniques or standardized protocols for targeted exams where dose is matched to indication/reason for exam; i.e. extremities or head) Use of iterative reconstruction technique DLP: 754 mGy-cm FINDINGS: No acute osseous or soft tissue abnormality. The mastoid air cells and visualized portions of the paranasal sinuses are well aerated. There is no evidence of acute intracranial hemorrhage or territorial infarction. No abnormal mass effect or midline shift is seen. Espitia to white matter differentiation is well preserved. No extra-axial fluid collections are identified. No hydrocephalus. No significant volume loss. There is no abnormal attenuation within the brain parenchyma. CT/CT head/brain wo IV con IMPRESSION: No acute intracranial abnormality including hemorrhage, mass effect, hydrocephalus, or acute territorial edematous infarction.
[2023-09-10 19:38] VITALS: BP 141/81; PULSE 71; RESP 17; TEMP 36.5; O2SAT 97; BMI 33.7
--- NOTE | 2023-09-10 19:43 | ED.GENADULT ---
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 Patient reports his headaches started on Friday. He describes the headache as bitemporal He also reports pressure behind his eyes and to his forehead He denies any fevers, chills. He states that the other day he did have some blurry vision which has resolved Patient rates the pain as 10/10 He reports that he saw his neurologist last week and was told everything was okay Patient states that he had COVID-19 5 weeks ago He denies any trauma to the head or neck He states he would similar episode about 1 year ago and the symptoms resolved spontaneously No other complaints or concerns Related Data Home Medications Medication Instructions Recorded Confirmed escitalopram oxalate 10 mg tablet 10 mg PO DAILY 01/18/21 06/05/23 (Lexapro) udkmruek-ap-ekoqy 300 mcg-K 60 1 tab PO DAILY 01/18/21 06/05/23 mcg-lycop 600 mcg-lutein 300 mcg tablet (Centrum Silver Men) zolpidem 10 mg tablet 10 mg PO BEDTIME PRN 01/18/21 06/05/23 bupropion HCl 300 mg 24 hr tablet, 300 mg PO QAM 08/13/21 06/05/23 extended release emollient combination no.32 topical 08/13/21 06/05/23 (EpiCeram topical emulsion, extended release) propranolol 80 mg capsule,24 80 mg PO BID 08/13/21 06/05/23 hr,extended release triamcinolone acetonide 0.1 % 1 appl topical BID-TID 08/13/21 06/05/23 topical cream ketoconazole 2 % topical cream appl topical DAILY PRN 01/14/22 06/05/23 clonazepam 1 mg tablet 1 mg PO .COMPLEX 01/21/22 06/05/23 albuterol sulfate 2.5 mg/3 mL 2.5 mg inhalation Q6H PRN 05/16/22 06/05/23 (0.083 %) solution for nebulization cyclosporine 0.05 % eye drops in a 1 drp ophthalmic (eye) BID 06/05/23 06/05/23 dropperette meloxicam 7.5 mg tablet 7.5 mg PO DAILY 06/05/23 06/05/23 Previous Rx's Medication Instructions Recorded hydrocortisone 2.5 % topical cream 1 appl OR BID hemorrhoids #30 grams 08/13/21 with perineal applicator (Proctosol HC) ropinirole 1 mg tablet 1 mg PO BEDTIME #30 tabs 12/19/21 Ventolin HFA 90 mcg/actuation 2 puff PO QID PRN for wheezing #18 06/10/22 aerosol inhaler (albuterol sulfate) grams tadalafil 20 mg tablet 20 mg PO ONCE PRN sexual activity 07/05/22 30 days #30 tabs bath mat #1 ea 09/06/22 shower head #1 ea 01/28/23 blood-glucose meter (OneTouch #1 ea 01/29/23 Ultra2 Meter) clotrimazole-betamethasone 1 1 appl topical BID #45 grams 03/12/23 %-0.05 % topical cream oxybutynin chloride 10 mg 10 mg PO DAILY #90 tabs 03/12/23 tablet,extended release 24 hr cyclobenzaprine 10 mg tablet 10 mg PO TID PRN muscle spasm #20 04/30/23 tabs dicyclomine 20 mg tablet 20 mg PO BID 30 days #60 tabs 05/20/23 atorvastatin 20 mg tablet 20 mg PO BEDTIME 90 days #90 tabs 06/05/23 blood sugar diagnostic (OneTouch #100 ea 06/05/23 Ultra Test strips) lancets 30 gauge (OneTouch #100 ea 06/05/23 UltraSoft 2 Lancet) montelukast 10 mg tablet 10 mg PO DAILY #90 tabs 07/01/23 metformin 500 mg tablet 500 mg PO BID 90 days #180 tabs 07/20/23 Incruse Ellipta 62.5 mcg/actuation 1 inh PO DAILY #30 ea 07/30/23 powder for inhalation (umeclidinium) bisacodyl 5 mg tablet,delayed 10 mg (2 x 5 mg) PO BEDTIME #60 09/03/23 release tabs dexlansoprazole 60 mg 60 mg PO DAILY #30 caps 09/03/23 capsule,biphase delayed release mesalamine 1.2 gram tablet,delayed 2.4 g (2 x 1.2 gram) PO DAILY #180 09/03/23 release tabs simethicone 125 mg capsule (Gas 125 mg PO BID-QID #120 caps 09/03/23 Relief Extra Strength) sucralfate 100 mg/mL oral 20 ml PO QNOON #1,000 mL 09/03/23 suspension ytjemzdzla-ebsojvsjrqkkj-qyoxpnug 1 cap PO Q4-6H PRN headache #14 09/11/23 50 mg-300 mg-40 mg capsule caps (Fioricet) Allergies Allergy/AdvReac Type Severity Reaction Status Date / Time Penicillins [PENICILLINS] Allergy Unknown ANAPHYLAXIS Verified 09/03/23 10:08 Review of Systems Constitutional: Constitutional: Denies body ache(s), Denies chills, Denies fever(s) and Reports headache(s) Eyes: Eyes: Reports blurry vision (resolved) ENT: Denies vertigo, Reports dizziness, Reports headache(s), Reports sinus pressure and Denies sore throat Cardiovascular: Cardiovascular: Denies chest pain and Denies dyspnea Respiratory: Respiratory: Denies cough and Denies dyspnea Gastrointestinal: Gastrointestinal: Denies abdominal pain, Denies nausea and Denies vomiting Musculoskeletal: Musculoskeletal: Denies back pain and Denies tingling Integumentary/Breasts: Skin/Breast: Denies rash Neurologic: Denies Neuro-related abnormal movements, Denies Abnormal speech present, Denies vertigo, Reports dizziness, Reports headache(s), Denies focal weakness, Denies Sensory deficit (Neuro), Denies tingling and Denies paresthesias [facility] Past Medical History Medical History Hyperlipidemia LDL goal <70 Upper abdominal pain History of smoking at least 1 pack per day for at least 30 years Balanitis Screening PSA (prostate specific antigen) Abdominal wall hernia Physical exam Elevated fasting glucose Personal history of nicotine dependence Pain in both feet Neck pain Lumbar pain Impaired glucose tolerance Abdominal bloating Obesity (BMI 30-39.9) Abdominal cramping History of COVID-19 Insomnia COPD (chronic obstructive pulmonary disease) Allergic rhinitis Ulcerative colitis Surgical History History of incisional hernia repair History of cervical spinal surgery History of colonoscopy History of appendectomy History of esophagogastroduodenoscopy (EGD) Family History Family History Father Diabetes HTN (hypertension) Heart attack Mother Skin cancer HTN (hypertension) Diabetes Paternal Aunt Heart attack Sister Skin cancer Social History Social History Household Members: Spouse Housing: Apartment Alcohol intake: never Patient Tobacco Use Status: Former Tobacco user Quit Date: 2011 Tobacco use type: Cigarette Years Smoked: (former smoker - onset 15yo, 1ppd x 36yrs, 35pyh, quit 2011) Smoked in Last 30 Days: No e-Cigarette/Vaping Use: Never Used Second Hand Smoke Exposure: No Use of substances other than those prescribed or required for medical reasons: Yes Substance Use Type: Marijuana Advance Directives: No Advance Directives Information Provided: No service: No Current occupational status: retired Cognitive needs: No Hearing needs: No Vision needs: No Physical Exam ED Vital Signs: Vital Signs - 24 hr 09/10/23 19:38 09/10/23 20:00 09/10/23 22:00 Temperature 97.7 F 98.2 F Pulse Rate 71 67 60 Respiratory Rate 17 16 20 Blood Pressure 141/81 H 152/86 H 144/86 H Pulse Oximetry 97 97 96 Oxygen Delivery Method Room Air Room Air Room Air BMI result Body Mass Index 33.7 Const General: healthy appearing, comfortable, no acute distress, alert and awake Nutritional Appearance: well nourished Orientation/consciousness: patient oriented x3 HENMT Head: Yes normocephalic and Yes atraumatic Eyes Alignment and Position: alignment normal Periorbital: periorbital findings normal Eyelids: Yes eyelids normal Conjunctivae: conjunctivae normal Sclerae: sclerae normal Corneas: corneas normal Pupils: Equal, round and reactive pupils present EOM: EOMs intact bilaterally Direct Ophthalmoscopy: normal light reflex, no photophobia, no papilledema and fundi normal bilaterally Neck Neck: Yes full ROM Resp Effort & Inspection: normal respiratory effort, able to speak in complete sentences and not labored Cardio Rate: regular rate Rhythm: regular rhythm GI Inspection: No distended Palpation (GI): Soft to palpation, not firm, nontender, no guarding and not rigid Skin General skin exam: elasticity normal Neuro General: patient oriented x3 Cranial nerves: Yes CN's II-XII intact bilaterally, Yes Equal, round and reactive pupils present and Yes Bilaterally intact EOM present Cognition (Neuro): normal cognition Speech: No Abnormal speech present Sensory Exam: No Sensory deficit (Neuro) Extrem Other: Moving all extremities well without any obvious deformities Course Course Course Narrative: RME performed by Karen Clemnet PA-C. Patient is a 62 year old assigned male at presenting to the emergency department with weakness. Detailed physical exam and review of systems are deferred to the contact centre supervisor. Labs, imaging, and swabs ordered. Patient placed back in the waiting room pending room availability and results. Medications Administered Discontinued Medications Generic Name Dose Route Start Last Admin Trade Name Ethanq PRN Reason Stop Dose Admin Acetaminophen/Butalbital/Caffeine 1 tab 09/11/23 00:54 09/11/23 01:01 Butalb/Acetamin/Caff 50/325/40 Tablet PO 09/11/23 00:55 1 tab ONCE ONE Administration Ketorolac Tromethamine 30 mg 09/11/23 00:54 09/11/23 01:02 Ketorolac Tromethamine 30 Mg/Ml Vial IM 09/11/23 00:55 30 mg ONCE ONE Administration Medical Decision Making Medical Decision Making [facility] Narrative: 62-year-old male with history as documented above presents for evaluation of headaches. His symptoms have improved over the last couple of days but he still has persistent headache. He reports that he was told in the past his symptoms may be related to stress. He has no neuro deficits, he had a CT scan ordered in triage that does not show any abnormalities. Given this headaches for temporal with some visual abnormalities I ordered an ESR to evaluate for temporal arteritis. ESR was less only 2 and the patient's bilateral symptoms make this less likely. We will treat his headache with Toradol and Fioricet. He has appropriate neurology follow-up. The patient also complains of chronic neck pain, his headache may be related to a tension headache Differential Diagnosis Differential Diagnoses: The differential diagnosis associated with the presentation includes Acute headache Tension headache Cluster headache Temporal arteritis Intracranial mass Sinusitis Lab Data [facility] Lab Attestation statement: I reviewed the patient's lab results. No leukocytosis or anemia. Normal platelet count. No significant electrolyte abnormalities. Patient's CO2 is slightly elevated to 30 which may be related to his diagnosis of COPD versus sleep apnea. He has known GUZMAN his LFTs are within normal limits except for his ALT which is just barely above normal. He has had intermittent chest pains for last couple of days, troponin is less than 2.7 rules out ACS. 09/10/23 20:20 09/10/23 20:20 Labs: Lab Results 09/10/23 09/11/23 Range/Units 20:20 00:34 WBC 7.9 (4.8-10.8) X10*3/uL RBC 4.96 (4.60-5.80) X10*6/uL Hgb 15.1 (14.0-18.0) g/dl Hct 42.8 (42.0-52.0) % MCV 86.3 (80.0-98.0) fL MCH 30.4 (27.0-33.0) pg MCHC 35.3 (31.0-36.0) g/dl RDW 13.5 (11.0-16.0) % Plt Count 171 (160-400) X10*3/uL MPV 11.7 (9.4-12.4) fL Immature Gran % (Auto) 0.3 (0.0-0.4) % Neut % (Auto) 63.4 (45-73) % Lymph % (Auto) 25.8 (20-40) % [place] % (Auto) 8.5 (2-11) % Eos % (Auto) 1.5 (0-4) % Baso % (Auto) 0.5 (0-2) % Lymph # (Auto) 2.0 (1.2-4.9) X10*3/uL [place] # (Auto) 0.7 (0.1-1.2) X10*3/uL Eos # (Auto) 0.1 (0.0-0.4) X10*3/uL Baso # (Auto) 0.0 (0.0-0.2) X10*3/uL Abs Immat Gran (auto) 0.02 (0.00-0.03) X10*3/uL Absolute Neuts (auto) 5.0 (2.0-8.3) x10*3/uL Absolute Nucleated RBC 0.000 (0.0-0.012) X10*3/uL Nucleated RBC % (auto) 0.0 (0.0-0.2) /100WBC ESR 2 (0-15) MM/HR PT 13.8 H (11.1-13.3) SEC INR 1.1 (0.9-1.1) APTT 36.7 (26.0-36.8) SEC Sodium 141 (135-145) mmol/L Potassium 4.5 (3.3-5.1) mmol/L Chloride 105 (96-108) mmol/L Carbon Dioxide 30 H (22-29) mmol/L Anion Gap 11 L (12-20) BUN 13 (9-16) mg/dL Creatinine 0.95 (0.5-1.4) mg/dL Estim Creat Clear Calc 89.7 Estimated GFR > 60 Random Glucose 97 (60-115) mg/dL Calcium 9.6 (8.4-10.2) mg/dL Magnesium 1.7 (1.6-2.6) mg/dL Total Bilirubin 0.7 (0.0-1.0) mg/dL AST 25 (5-37) U/L ALT 41 H (0-40) U/L Alkaline Phosphatase 81 (39-117) U/L Troponin I High Sens < 2.7 (<3.5-35.0) ng/L Total Protein 6.8 (6.5-8.0) g/dL Albumin 4.4 (3.5-5.0) g/dL Urine Color Yellow Urine Appearance Clear Urine pH 6.0 (5.0-9.0) Ur Specific L[place] <= 1.005 (1.005-1.025) Urine Protein Negative (Neg-Trace) mg/dL Urine Glucose (UA) Negative (Negative) mg/dL Urine Ketones Negative (Negative) mg/dL Urine Blood Negative (Negative) Urine Nitrite Negative (Negative) Ur Leukocyte Esterase Negative (Negative) Influenza Type A (PCR) NEGATIVE (Negative) Influenza Type B (PCR) NEGATIVE (Negative) RSV RNA Qual (PCR) NEGATIVE (Negative) SARS-CoV-2 RNA (RT-PCR) NEGATIVE (Negative) Independent Interpretation I performed an independent interpretation of an: EKG (Normal sinus rhythm with a rate of [address] segment changes) Discharge Plan Discharge Clinical Impression: Acute headache Patient Disposition: Home, Self-Care Instructions: Acute Headache (ED) Additional Instructions: Your workup in the ER today was reassuring. This includes your blood work, EKG, CT scan of your brain. Your treated with Toradol and Fioricet for your headache You may continue taking Fioricet as directed for headaches. Follow-up with your neurologist, return for new or worsening symptoms Prescriptions: New avmxjlnwqs-kbdnbaudxxbwt-qsad [Fioricet] 50-300-40 mg capsule 1 cap PO Q4-6H PRN (Reason: headache) Qty: 14 0RF No Action ropinirole 1 mg tablet 1 mg PO BEDTIME Qty: 30 0RF albuterol sulfate [Ventolin HFA] 90 mcg/actuation HFA aerosol inhaler 2 puff PO QID PRN (Reason: for wheezing) Qty: 18 0RF (DME) bath mat See Rx Instructions .Route .MEDSUPPLY Qty: 1 0RF Rx Instructions: As directed (DME) blood-glucose meter [TelepathTouch Ultra2 Meter] Misc See Rx Instructions .Route Qty: 1 0RF Rx Instructions: As directed montelukast 10 mg tablet 10 mg PO DAILY Qty: 90 0RF metformin 500 mg tablet 500 mg PO BID 90 Days Qty: 180 1RF Incruse Ellipta 62.5 mcg/actuation blister with device 1 inh PO DAILY Qty: 30 3RF cyclobenzaprine 10 mg tablet 10 mg PO TID PRN (Reason: muscle spasm) Qty: 20 0RF zolpidem 10 mg tablet 10 mg PO BEDTIME PRN escitalopram oxalate [Lexapro] 10 mg tablet 10 mg PO DAILY Centrum Silver Men 300-600-300 mcg tablet 1 tab PO DAILY clonazepam 1 mg tablet 1 mg PO .COMPLEX Rx Instructions: 1 mg PO 1 tab in pm and 1/2 tab Qam; (DME) shower head See Rx Instructions .Route .MEDSUPPLY Qty: 1 0RF Rx Instructions: As directed meloxicam 7.5 mg tablet 7.5 mg PO DAILY cyclosporine 0.05 % dropperette 1 drp ophthalmic (eye) BID atorvastatin 20 mg tablet 20 mg PO BEDTIME 90 Days Qty: 90 1RF (DME) TelepathTouch Ultra Test Strip See Rx Instructions .Route Qty: 100 1RF Rx Instructions: Use 1 test strip once a day (DME) lancets [OneTouch UltraSoft 2 Lancet] 30 gauge misc See Rx Instructions .Route Qty: 100 1RF Rx Instructions: Use 1 lancet once a day tadalafil 20 mg tablet 20 mg PO ONCE PRN (Reason: sexual activity) 30 Days Qty: 30 0RF Rx Instructions: may use up to 1.5 tabs ketoconazole 2 % cream topical DAILY PRN albuterol sulfate 2.5 mg /3 mL (0.083 %) solution for nebulization 2.5 mg inhalation Q6H PRN propranolol 80 mg capsule,extended release 24 hr 80 mg PO BID bupropion HCl 300 mg tablet extended release 24 hr 300 mg PO QAM triamcinolone acetonide 0.1 % cream 1 appl topical BID-TID EpiCeram Emulsion, Extended Release topical hydrocortisone [Proctosol HC] 2.5 % cream with perineal applicator 1 appl OR BID Qty: 30 6RF oxybutynin chloride 10 mg tablet extended release 24hr 10 mg PO DAILY Qty: 90 1RF clotrimazole-betamethasone 1-0.05 % cream 1 appl topical BID Qty: 45 0RF Rx Instructions: apply bid for 7 - 10 days then prn dicyclomine 20 mg tablet 20 mg PO BID 30 Days Qty: 60 3RF sucralfate 100 mg/mL suspension 20 ml PO QNOON Qty: 1000 0RF simethicone [Gas Relief Extra Strength] 125 mg capsule 125 mg PO BID-QID Qty: 120 6RF mesalamine 1.2 gram tablet,delayed release (DR/EC) 2.4 g PO DAILY Qty: 180 6RF dexlansoprazole 60 mg capsule,biphase delayed releas 60 mg PO DAILY Qty: 30 6RF bisacodyl 5 mg tablet,delayed release (DR/EC) 10 mg PO BEDTIME Qty: 60 6RF
--- NOTE | 2023-09-10 19:44 | ECG_ITS ---
Test Reason : WEAKNESS Blood Pressure : / mmHG Vent. Rate : 070 BPM Atrial Rate : 070 BPM P-R Int : 156 ms QRS Dur : 092 ms QT Int : 388 ms P-R-T Axes : 037 074 070 degrees QTc Int : 419 ms Normal sinus rhythm Normal ECG When compared with ECG of 29-APR-2023 18:34, No significant change was found Referred By: Karen Clement Electronically Signed By:DOC MARIE MD
[2023-09-10 20:00] VITALS: BP 152/86; PULSE 67; RESP 16; TEMP 36.8; O2SAT 97
[2023-09-10 20:38] LABS: MANUAL DIFF FLAG NO
[2023-09-10 20:44] LABS: Basophils Percent Auto 0.5 % (0-2); Eosinophils Absolute Auto 0.1 X10*3/uL (0.0-0.4); Eosinophils Percent Auto 1.5 % (0-4); Hematocrit 42.8 % (42.0-52.0); Hemoglobin 15.1 g/dl (14.0-18.0); Imm Gran Abs Auto 0.02 X10*3/uL (0.00-0.03); Imm Gran Pct Auto 0.3 % (0.0-0.4); Lymphocytes Percent Auto 25.8 % (20-40); Mean Corpuscular HGB Conc 35.3 g/dl (31.0-36.0); Mean Corpuscular Hemoglobin 30.4 pg (27.0-33.0); Mean Corpuscular Volume 86.3 fL (80.0-98.0); Mean Platelet Volume 11.7 fL (9.4-12.4); Monocytes Absolute Auto 0.7 X10*3/uL (0.1-1.2); Monocytes Percent Auto 8.5 % (2-11); Neutrophils Percent Auto 63.4 % (45-73); Platelet Count 171 X10*3/uL (160-400); Red Blood Count 4.96 X10*6/uL (4.60-5.80); Red Cell Distribution Width 13.5 % (11.0-16.0); White Blood Count 7.9 X10*3/uL (4.8-10.8)
[2023-09-10 20:49] LABS: INTERNATIONAL NORM RATIO 1.1 (0.9-1.1); Prothrombin Time 13.8 SEC (11.1-13.3)
[2023-09-10 20:52] LABS: Partial Thromboplastin Time 36.7 SEC (26.0-36.8)
[2023-09-10 20:54] LABS: Appearance Urine Clear; Color Urine Yellow; Glucose Urine UA Negative (Negative); Leukocyte Esterase Urine Negative (Negative); Nitrite Urine Negative (Negative); Specific Gravity - Urine <= 1.005 (1.005-1.025); Urine Blood Negative (Negative); Urine Ketones Negative (Negative); Urine Protein Negative (Neg-Trace)
[2023-09-10 21:01] LABS: Alanine Aminotransferase 41 U/L (0-40); Albumin Level 4.4 g/dL (3.5-5.0); Alkaline Phosphatase 81 U/L (39-117); Anion Gap 11 (12-20); Aspartate Amino Transferase 25 U/L (5-37); Bilirubin Total 0.7 mg/dL (0.0-1.0); Blood Urea Nitrogen 13 mg/dL (9-16); Calcium 9.6 mg/dL (8.4-10.2); Carbon Dioxide 30 mmol/L (22-29); Chloride 105 mmol/L (96-108); Creatinine Clr Calc Pharmacy 89.7; Estimated Glomerular Filt Rate > 60; Glucose Random 97 mg/dL (60-115); Magnesium 1.7 mg/dL (1.6-2.6); Potassium 4.5 mmol/L (3.3-5.1); Sodium 141 mmol/L (135-145); Total Protein 6.8 g/dL (6.5-8.0)
[2023-09-10 21:10] LABS: Troponin-I High Sensitivity < 2.7 ng/L (<3.5-35.0)
[2023-09-10 22:00] VITALS: BP 144/86; PULSE 60; RESP 20; O2SAT 96
[2023-09-10 22:12] LABS: Influenza A PCR NEGATIVE (Negative); Influenza B PCR NEGATIVE (Negative); Resp Syncy Virus RNA Qual PCR NEGATIVE (Negative); SARS COV2 PCR INHOUSE NEGATIVE (Negative)
--- NOTE | 2023-09-10 22:29 | PC.NURSE ---
Pt resting on stretcher NAD, VSS. results received, awaiting MD primary eval.
[2023-09-11] MEDS: Butalb/Acetamin/Caff 50/325/40 TABLET 1 TAB PO (01:01)
[2023-09-11] MEDS: Ketorolac Tromethamine 30 MG/ML VIAL IM (01:02)
--- NOTE | 2023-09-11 01:15 | PC.NURSE ---
this rn assumed care of pt @ 2300. spanish lecturer utilized, pt medicated according to mar
[2023-09-11 01:16] LABS: Erythrocyte Sedimentation Rate 2 MM/HR (0-15)
[2023-09-11 02:00] VITALS: BP 141/84; PULSE 63; RESP 16; TEMP 36.7; O2SAT 95
--- NOTE | 2023-09-11 02:40 | PC.NURSE ---
supervisor cook house utilized at discharge pt calm and cooperative. ambulatory at discharge. pt provided with discharge packet. pt verbalized understanding of discharge plan
== END 2023-09-11 02:41 | disposition home or self-care (01) ==
PROVIDERS: Physician Assistant; Physician Assistant Medical; Emergency Provider Internal Medicine; PCP Internal Medicine
DX: R51.9 Headache, unspecified (principal); R53.1 Weakness; H53.8 Other visual disturbances; R42 Dizziness and giddiness; Z86.16 Personal history of COVID-19; Z11.52 Encounter for screening for COVID-19; Z20.822 Contact with and (suspected) exposure to COVID-19; Z79.899 Other long term (current) drug therapy
CPT/HCPCS: 0241U; 36415; 70450; 71046; 80053; 81003; 83735; 84484; 85025; 85610; 85652; 85730; 93005; 96372; 99284; 99285; J1885

== ENCOUNTER → 2023-09-10 19:44 | Outpatient (BNV) | payer OTHER, SELFPAY | PROVIDERS: Emergency Provider Internal Medicine; PCP Internal Medicine; Visit Provider Internal Medicine Cardiovascular Disease | DX: R53.1 Weakness (principal) | CPT/HCPCS: 93010 ==

== ENCOUNTER 2023-09-15 09:23 | Outpatient (REF) | payer OTHER, SELFPAY ==
[2023-09-15 11:41] LABS: PSA,Total (Free>4and<10) 2.93 ng/mL (0.00-4.00)
== END 2023-09-15 09:24 | disposition home or self-care (01) ==
LOC: HO.LAB 09:23
PROVIDERS: PCP Internal Medicine; Visit Provider Urology
DX: N40.1 Benign prostatic hyperplasia with lower urinary tract symptoms (principal); N13.8 Other obstructive and reflux uropathy; Z12.5 Encounter for screening for malignant neoplasm of prostate
CPT/HCPCS: 36415; 84153

== ENCOUNTER 2023-09-17 10:47 | Outpatient (AMB) | payer OTHER, SELFPAY ==
--- NOTE | 2023-09-17 11:04 | A.OFFPC_ITS ---
Vital Signs 09/17/23 11:08 Height 5 ft 7 in Weight 206 lb BMI 32.3 BP 150/100 H Blood Pressure Location Lt brachial Position Sitting Intake Visit Reasons: [facility] [place] Headache/Migraine Intake Note: Patient here for [facility] ED follow up headache/migraine Nutrient Management Specialist Required: No Accompanied by: Self / Same As Patient Allergies Penicillins [PENICILLINS] Allergy (Unknown, Verified 09/17/23 11:22) ANAPHYLAXIS Medication List - Last Reconciled 09/17/23 by Shelli Bartlett MD albuterol sulfate 2.5 mg inhalation Q6H PRN atorvastatin 20 mg PO BEDTIME 90 days [bath mat As directed] bisacodyl 10 mg (2 x 5 mg) PO BEDTIME blood sugar diagnostic (IQMS Ultra Test strips) Use 1 test strip once a day blood-glucose meter (IQMS Ultra2 Meter) As directed bupropion HCl 300 mg PO QAM nxxguynjyz-xsnkveyazdufl-yqdu 50-300-40 mg (Fioricet) 1 cap PO Q4-6H PRN clonazepam 1 mg PO 1 tab in pm and 1/2 tab Qam; clotrimazole-betamethasone 1-0.05 % 1 appl topical BID cyclobenzaprine 10 mg PO TID PRN cyclosporine 0.05% 1 drp ophthalmic (eye) BID dexlansoprazole 60 mg PO DAILY dicyclomine 20 mg PO BID 30 days emollient combination no.32 (EpiCeram topical emulsion, extended release) topical escitalopram oxalate (Lexapro) 10 mg PO DAILY hydrocortisone 2.5% (Proctosol HC) 1 appl CO BID Incruse Ellipta 62.5 mcg/actuation (umeclidinium) 1 inh PO DAILY NS ketoconazole 2% appl topical DAILY PRN lancets (TareasPlusTouch UltraSoft 2 Lancet) Use 1 lancet once a day meloxicam 7.5 mg PO DAILY mesalamine 2.4 grams (2 x 1.2 gram) PO DAILY metformin 500 mg PO BID 90 days montelukast 10 mg PO DAILY [id number]-ydjwp-[id number]-ggpitct-vymooa [id number] mcg (Centrum Silver Men) 1 tab PO DAILY oxybutynin chloride ER 10 mg PO DAILY propranolol ER 80 mg PO BID ropinirole 1 mg PO BEDTIME [shower head As directed] simethicone (Gas Relief Extra Strength) 125 mg PO BID-QID sucralfate 20 mL PO QNOON tadalafil 20 mg PO ONCE PRN 30 days triamcinolone acetonide 0.1% 1 appl topical BID-TID Ventolin HFA 90 mcg/actuation (albuterol sulfate) 2 puffs PO QID PRN NS zolpidem 10 mg PO BEDTIME PRN Tobacco use date assessed: 09/17/23 Dental Screening Dental Screen Date: 09/17/23 Did you have a dental visit in the last 12 months?: Yes Did you have a dental problem in the last 6 months where you did not have access to dental care?: No Was dental information given to patient?: Patient has dentist HPI HPI Comments History of Present Illness Details This is a 62-year-old male with diabetes mellitus type 2, COPD, hyperlipidemia, ulcerative colitis, and mild major depression that comes today as a hospital discharge follow-up with discharge date 09/12/2023 due to acute headache that started few days before going to ER. No neurological deficit. Head CT was done and was negative. He follows with Neurology. A1c within goal. COPD stable with Incruse. On statins for hyperlipidemia. On mesalamine for ulcerative colitis that has been stable and follow by Gastroenterology. Depression also stable with bupropion and follows with counselor and psychiatrist. Headache resolved. COUNTS INCLUDE 234 BEDS AT THE [facility] Medical History (Updated 09/17/23 @ 12:08 by Shelli Bartlett MD) Hyperlipidemia LDL goal <70 Upper abdominal pain History of smoking at least 1 pack per day for at least 30 years Balanitis Screening PSA (prostate specific antigen) Abdominal wall hernia Physical exam Elevated fasting glucose Personal history of nicotine dependence Pain in both feet Neck pain Lumbar pain Impaired glucose tolerance Abdominal bloating Obesity (BMI 30-39.9) Abdominal cramping History of COVID-19 Insomnia COPD (chronic obstructive pulmonary disease) Allergic rhinitis Ulcerative colitis Surgical History History of incisional hernia repair History of cervical spinal surgery History of colonoscopy History of appendectomy History of esophagogastroduodenoscopy (EGD) Family History Father Diabetes HTN (hypertension) Heart attack Mother Skin cancer HTN (hypertension) Diabetes Paternal Aunt Heart attack Sister Skin cancer Social History Household Members: Spouse Housing: Apartment Alcohol intake: never Patient Tobacco Use Status: Former Tobacco user Quit Date: 2011 Tobacco use type: Cigarette Years Smoked: (former smoker - onset 15yo, 1ppd x 36yrs, 35pyh, quit 2011) e-Cigarette/Vaping Use: Never Used Second Hand Smoke Exposure: No Substance Use Type: Marijuana service: No Current occupational status: retired Cognitive needs: No Hearing needs: No Vision needs: No Questionnaire PHQ-9 Over the last 2 weeks, how often have you been bothered by any of the following problems? 1. Little interest or pleasure in doing things: not at all 2. Feeling down, depressed, or hopeless: not at all 3. Trouble falling or staying asleep, or sleeping too much: not at all 4. Feeling tired or having little energy: not at all 5. Poor appetite or overeating: not at all 6. Feeling bad about yourself - or that you are a failure or have let yourself or your family down: not at all 7. Trouble concentrating on things, such as reading the newspaper or watching television: not at all 8. Moving or speaking so slowly that other people could have noticed. Or the opposite - being so fidgety or restless that you have been moving around a lot more than usual: not at all 9. Thoughts that you would be better off or of hurting yourself in some way: not at all Total score: 0 Depression Screening Interpretation: Negative Depression Screening Done: Yes 18765 - PHQ-9 Billing: Yes Source: Developed by Drs. 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 Thrive Questionnaire Date Thrive assessed: 09/17/23 I am a: Patient What is your living situation today?: I have a steady place to live Within the past 12 months, did the food you bought not last and you didn't have the money to get more?: Never true Within the past 12 months, did you worry whether your food would run out before you got money to buy more?: Never true Do you have trouble paying for medicines?: No Do you have trouble getting transportation to medical appointments?: No Do you have trouble paying your heating and electricity bill?: No Do you have trouble taking care of your child, family member or friend?: No Do you have trouble with day-to-day activities such as bathing, preparing meals, shopping, managing finances, etc.?: No Are you currently unemployed and looking for a job?: No Are you interested in more education?: No Please select the resources that you would like help with: None Currently or been in a relationship where the following occur: no concerns reported THRIVE Score: 0 AUDIT C Alcohol Use Questionnaire (AUDIT-C) 1. How often do you have a drink containing alcohol?: Never Total Score: 0 Score Reviewed/Action Taken: No KRZYSZTOF-7 AMB Questionnaire KRZYSZTOF-7 Date KRZYSZTOF - 7 assessed: 09/17/23 Feeling nervous, anxious, or on edge: 1 = Several days Not being able to stop or control worryin = Not at all Worrying too much about different things: 0 = Not at all Trouble relaxin = Not at all Being so restless that it is hard to sit still: 0 = Not at all Becoming easily annoyed or irritable: 0 = Not at all Feeling afraid as if something awful might happen: 0 = Not at all Total KRZYSZTOF-7 score (0-4 normal; 5-9 mild; 10-14 moderate; 15-21 severe): 1 Source: Developed by Drs. 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 KRZYSZTOF-7 Assessment Billing KRZYSZTOF-7 Assessment Tool: KRZYSZTOF-7 Assessment 76679 Review of Systems Const All systems reviewed & are unremarkable except as noted in HPI and below Eyes Reports no additional complaints, Denies change in vision and Denies other visual disturbances Card Denies chest pain at rest, Denies chest pain with activity, Denies edema, Denies irregular heart rhythm, Denies claudication, Denies dyspnea, Denies dyspnea on exertion, Denies orthopnea, Denies paroxysmal nocturnal dyspnea and Denies slow heart rate Resp Denies cough, Denies dyspnea and Denies dyspnea on exertion GI Denies abdominal pain, Denies change in bowel habits, Denies excessive flatus, Denies nausea and Denies vomiting Denies urinary hesitancy, Denies urinary incontinence and Denies urinary urgency Musc Denies atrophy, Denies deformity and Denies limited range of motion Physical exam (Primary Care) Vital Signs: Last Vital Signs BP 150/100 H 09/17/23 11:08 BMI result Body Mass Index 32.3 Tobacco/Smoking Status: Tobacco use Status Tobacco use date assessed 09/17/23 09/17/23 11:10 Patient Tobacco Use Status Former Tobacco user 09/17/23 11:06 Tobacco use type Cigarette 09/17/23 11:06 e-Cigarette/Vaping Use Never Used 09/17/23 11:06 PHQ-9: PHQ-9 Score PHQ-9: Total score 0 09/17/23 11:13 Depression Screening Interpretation: Negative Thrive Assessment: Date of Thrive Assessment Date Thrive assessed 09/17/23 09/17/23 11:13 Currently or been in a relationship where the following occur: no concerns reported Neck Neck: Yes normal visual inspection and Yes supple Resp Effort & Inspection: normal respiratory effort Auscultation: clear to auscultation bilaterally Cardio Jugular venous distension: no JVD Rate: regular rate Rhythm: regular rhythm Heart sounds: S1 normal heart sound present and S2 normal heart sound present Extrem General: Yes full ROM Results AMB Hemoglobin A1c AMB Hemoglobin A1c 6.1 % Last Edit by GEORGETTE Palma on 09/17/23 11:2 4 Assessment and Plan Assessment & Plan (1) Hospital discharge follow-up: Code(s): Z09 - Encounter for follow-up examination after completed treatment for conditions other than malignant neoplasm Plan: Discharge date 09/12/2023 due to acute headache. Head CT was negative. Labs were within normal limits. Was given Toradol and Fioricet with complete resolution of headache. (2) Acute headache: Code(s): R51.9 - Headache, unspecified Plan: Follow-up with neurology. (3) Diabetes: Code(s): E11.9 - Type 2 diabetes mellitus without complications Qualifiers: Diabetes mellitus complication status: without complication Plan: Continue metformin. A1c goal is equal or less than 7%. (4) COPD (chronic obstructive pulmonary disease): Comment: Moderate degree of chronic obstructive pulmonary disease, ., SEC TO PAST h/o SMOKING STABLE AT THIS TIME. TX : Incruse Ellipta one inh daily Montelukast 10 mg po daily Ventolin HFA 2 puffs Q 6 hours p.r.n.. Code(s): J44.9 - Chronic obstructive pulmonary disease, unspecified Qualifiers: COPD type: emphysema Emphysema type: panlobular Qualified Code(s): J43.1 - Panlobular emphysema Plan: Continue Incruse. Use rescue inhaler as needed. (5) Mild major depression: Code(s): F32.0 - Major depressive disorder, single episode, mild Plan: Continue bupropion. Follow-up with psychiatry and counseling. (6) Dyslipidemia: Code(s): E78.5 - Hyperlipidemia, unspecified Plan: Continue statins. LDL goal is less than 70. (7) Ulcerative colitis: Code(s): K51.90 - Ulcerative colitis, unspecified, without complications Plan: Continue mesalamine. Follow-up with Gastroenterology. Orders: Orders Lipid Panel 4 Months E78.5 - Hyperlipidemia, unspecified Microalbumin, Random (w Creat) 4 Months E11.9 - Type 2 diabetes mellitus without complications AMB Hemoglobin A1c Today E11.9 - Type 2 diabetes mellitus without complications Vitamin D 25-OH Total 4 Months E55.9 - Vitamin D deficiency, unspecified Comprehensive [place]. Panel Fast 4 Months R51.9 - Headache, unspecified Coding Level of Care Code TCM Mod MDM <= 7 Days Diagnoses Hospital discharge follow-up Z09 Acute headache R51.9 Diabetes E11.9 Diabetes mellitus complication status: without complication Panlobular emphysema J43.1 COPD type: emphysema Emphysema type: panlobular Mild major depression F32.0 Dyslipidemia E78.5 Ulcerative colitis K51.90 Additional Codes KRZYSZTOF-7 Assessment Billing - KRZYSZTOF-7 Assessment Tool: KRZYSZTOF-7 Assessment 48502 ([id number]) Time Spent (min) 28
[2023-09-17 11:08] VITALS: BP 150/100; BMI 32.3
== END 2023-09-17 11:39 | disposition home or self-care (01) ==
PROVIDERS: PCP Internal Medicine; Visit Provider Internal Medicine
DX: E11.69 Type 2 diabetes mellitus with other specified complication (principal); J43.1 Panlobular emphysema; F32.0 Major depressive disorder, single episode, mild; K51.90 Ulcerative colitis, unspecified, without complications; Z09 Encounter for follow-up examination after completed treatment for conditions other than malignant neoplasm; R51.9 Headache, unspecified; E78.5 Hyperlipidemia, unspecified
CPT/HCPCS: 83036; 99214

== ENCOUNTER 2023-09-17 13:51 | Outpatient (AMB) | payer OTHER, SELFPAY ==
[2023-09-17 14:04] VITALS: BMI 32.2
--- NOTE | 2023-09-17 14:04 | A.OFFVIS_ITS ---
Intake VS Expanded 09/17/23 14:04 Height 5 ft 7 in Weight 205 lb 14.588 oz BMI 32.2 Intake Visit Reasons: T2DM/LVM Allergies Penicillins [PENICILLINS] Allergy (Unknown, Verified 09/17/23 11:22) ANAPHYLAXIS HPI Nutrition Presentation Details Pt presents for MNT f/u for T2DM Pt reports doing well ,taking DM meds as rx by doctor. pt reports having 3 meals a day working on balancing and following healthy plate method, has glucerna shakes or fruit or chips or cracker in between meals Fruits 1-2 /d dairy: 2-3 serving/d fish 2-3 times a week fried foods 0-2 x/m desserts 1-2 x/week Most recent A1c at 6.1% on 08/2023 Most Recent Diabetes Results: Creatinine 0.95 mg/dL (0.5-1.4) 09/10/23 Blood Urea Nitrogen 13 mg/dL (9-16) 09/10/23 Sodium 141 mmol/L (135-145) 09/10/23 Potassium 4.5 mmol/L (3.3-5.1) 09/10/23 Chloride 105 mmol/L (96-108) 09/10/23 Carbon Dioxide 30 mmol/L (22-29) H 09/10/23 Calcium 9.6 mg/dL (8.4-10.2) 09/10/23 AST 25 U/L (5-37) 09/10/23 ALT 41 U/L (0-40) H 09/10/23 Total Protein 6.8 g/dL (6.5-8.0) 09/10/23 Albumin 4.4 g/dL (3.5-5.0) 09/10/23 [facility] Medical History Hyperlipidemia LDL goal <70 Upper abdominal pain History of smoking at least 1 pack per day for at least 30 years Balanitis Screening PSA (prostate specific antigen) Abdominal wall hernia Physical exam Elevated fasting glucose Personal history of nicotine dependence Pain in both feet Neck pain Lumbar pain Impaired glucose tolerance Abdominal bloating Obesity (BMI 30-39.9) Abdominal cramping History of COVID-19 Insomnia COPD (chronic obstructive pulmonary disease) Allergic rhinitis Ulcerative colitis Surgical History History of incisional hernia repair History of cervical spinal surgery History of colonoscopy History of appendectomy History of esophagogastroduodenoscopy (EGD) Family History Father Diabetes HTN (hypertension) Heart attack Mother Skin cancer HTN (hypertension) Diabetes Paternal Aunt Heart attack Sister Skin cancer Social History Household Members: Spouse Housing: Apartment Alcohol intake: never Patient Tobacco Use Status: Former Tobacco user Quit Date: 2011 Tobacco use type: Cigarette Years Smoked: (former smoker - onset 15yo, 1ppd x 36yrs, 35pyh, quit 2011) e-Cigarette/Vaping Use: Never Used Second Hand Smoke Exposure: No Substance Use Type: Marijuana service: No Current occupational status: retired Cognitive needs: No Hearing needs: No Vision needs: No Assessment & Plan Assessment & Plan (1) Diabetes: Code(s): E11.9 - Type 2 diabetes mellitus without complications Qualifiers: Diabetes mellitus complication status: without complication Plan wt: 98 kg (97 kg 03/2023) (95 kg 05/2023), 94 kg (08/2023) Est kcal needs as per MSJ: 2100 (40% carb, 30% protein/fat) Est fluid needs as per 25-30 ml/d: 2450 Est prot per day as per 1 g/kg bw: 98 Recommend fiber intake : 8-10 g per day and gradually increase to 25-28 g per day for women and 35-38 g for men or as tolerated Recommend sodium intake per day : less than 2000 mg Educated patient on: ( R = reviewed V = verbalizes understanding N/R = needs review N/A = not applicable * Food sources of carbohydrate, adequate serving sizes and its role in various health conditions: R ,V * Differences between complex carbohydrates a simple carbohydrates, role of fiber in diet: R * Differences between types of fats and role in diet (mono on saturated fat fatty acids, saturated fatty acids, trans fats): R * Food sources of sodium in salt and healthy modifications for heart health in kidney health: R , V * Healthy plate method concept: R, V * Physical activity: Benefits a precaution: R , V * Hypoglycemia protocol (rule of 15): R , V * Dietary prevention of Hyperglycemia: R , V Patient Instructions: Choose low sodium sources of foods (low sodium cracker, chips, condiments, be aware of salt, sodium in soups ,salted seasonings )- see list of low sodium food options and foods high in salt /sodium Aim at reducing sodium to less than 2000 mg per day, closer to 1500 mg Coding Level of Care Code Nutr Indiv Subseq ([id number]) Diagnoses Diabetes E11.9 Diabetes mellitus complication status: without complication Time Spent (min) 30
== END 2023-09-17 14:39 | disposition home or self-care (01) ==
PROVIDERS: PCP Internal Medicine; Visit Provider Dietitian, Registered
DX: E11.9 Type 2 diabetes mellitus without complications (principal)

== ENCOUNTER → 2023-09-17 13:51 | Outpatient (BNVA) | payer OTHER, SELFPAY | PROVIDERS: PCP Internal Medicine; Visit Provider Dietitian, Registered | DX: E11.9 Type 2 diabetes mellitus without complications (principal) | CPT/HCPCS: 97803 ==

== ENCOUNTER 2023-09-25 08:59 | Outpatient (AMB) | payer OTHER, SELFPAY ==
--- NOTE | 2023-09-25 09:15 | A.OFFVIS_ITS ---
Intake Intake Visit Reasons: 6m/PSA Intake Note: Patient presents today for a follow-up on PSA Results: Meds- Tadalafil & Tolterodine Allergies to Antibiotic- Penicillin Blood Thinner- None PVR- 25ml Occupational Physician Required: No Accompanied by: Self / Same As Patient Allergies Penicillins [PENICILLINS] Allergy (Unknown, Verified 09/17/23 11:22) ANAPHYLAXIS Medication List - Last Reconciled 09/25/23 by Elly Peralta MD albuterol sulfate 2.5 mg inhalation Q6H PRN atorvastatin 20 mg PO BEDTIME 90 days [bath mat As directed] bisacodyl 10 mg (2 x 5 mg) PO BEDTIME blood sugar diagnostic ([employer] Ultra Test strips) Use 1 test strip once a day blood-glucose meter ([employer] Ultra2 Meter) As directed bupropion HCl 300 mg PO QAM dpbenexsbu-mqtmvoddzpfso-rwwx 50-300-40 mg (Fioricet) 1 cap PO Q4-6H PRN clonazepam 1 mg PO 1 tab in pm and 1/2 tab Qam; clotrimazole-betamethasone 1-0.05 % 1 appl topical BID cyclobenzaprine 10 mg PO TID PRN cyclosporine 0.05% 1 drp ophthalmic (eye) BID dexlansoprazole 60 mg PO DAILY dicyclomine 20 mg PO BID emollient combination no.32 (EpiCeram topical emulsion, extended release) topical escitalopram oxalate (Lexapro) 10 mg PO DAILY hydrocortisone 2.5% (Proctosol HC) 1 appl MD BID Incruse Ellipta 62.5 mcg/actuation (umeclidinium) 1 inh PO DAILY NS ketoconazole 2% appl topical DAILY PRN lancets ([employer] UltraSoft 2 Lancet) Use 1 lancet once a day meloxicam 7.5 mg PO DAILY mesalamine 2.4 grams (2 x 1.2 gram) PO DAILY metformin 500 mg PO BID 90 days montelukast 10 mg PO DAILY su-jhr-wowpf-J9-skypyrk-ggzjep 706-26-060-300 mcg (Centrum Silver Men) 1 tab PO DAILY oxybutynin chloride ER 10 mg PO DAILY propranolol ER 80 mg PO BID ropinirole 1 mg PO BEDTIME [shower head As directed] simethicone (Gas Relief Extra Strength) 125 mg PO BID-QID sucralfate 20 mL PO QNOON tadalafil 20 mg PO ONCE PRN 30 days triamcinolone acetonide 0.1% 1 appl topical BID-TID Ventolin HFA 90 mcg/actuation (albuterol sulfate) 2 puffs PO QID PRN NS zolpidem 10 mg PO BEDTIME PRN HPI HPI Comments History of Present Illness Details Kali is a 62-year-old male who presents today to the office for a follow-up. He is prescribed oxybutynin 10 mg for overactive bladder symptoms. 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 The patient states that he his bladder symptoms are stable on the oxybutynin. He does have some dry mouth symptoms. He states that his PCP has prescribed Cialis 20 mg to use p.r.n.. He is concerned about low testosterone contributing to erectile issues. I have discussed that diabetes is a comorbidity for erectile dysfunction. I have reviewed PSA results with the patient. PSA--09/15/2023--2.93 ng/mL. Bladder scan PVR 25 mL. Urinalysis negative leukocytes, negative blood. Review of chart: 03/12/2023? He has seen Jc Nava on 09/05/2022 for erectile dysfunction, elevated PSA, and lower urinary tract symptoms. The tolterodine ER 2 mg was changed to tolterodine 4 mg at that time. He has been taking Oxybutynin 10 mg daily and states that works better than the tolteridine. He c/o's of redness around the penis. Plan discussed-- Oxybutynin 10 mg.PSA screening was ordered. Lotrisone cream 1 % was prescribed. Apply antifungal cream to the foreskin and glans of the penis BID for a week and then PRN. Follow up with Dr. Fitzpatrick in 6 months. Review of tests: I reviewed the US abdomen results from 08/12/2031 revealed right kidney was visualized, no hydronephrosis or parenchymal lesions noted. PSA 02/04/22- 2.94 03/12/23--Evaluation today?UA? Leukocytes : negative: blood: negative. Exam - balanitis 09/25/2023--PLAN: Free and total testost erone levels, FSH, LH, fasting glucose. Continue oxybutynin 10 mg daily. Annual PSA screening. Follow-up telehealth in 6 weeks to review blood work. Follow-up in 6 months to monitor urine and PVRs. [facility] Medical History Hyperlipidemia LDL goal <70 Upper abdominal pain History of smoking at least 1 pack per day for at least 30 years [facility] Scre[facility] PSA (prostate specific antigen) Abdominal wall hernia Physical exam Elevated fasting glucose Personal history of nicotine dependence Pain in both feet Neck pain Lumbar pain Impaired glucose tolerance Abdominal bloating Obesity (BMI 30-39.9) Abdominal cramping History of COVID-19 Insomnia COPD (chronic obstructive pulmonary disease) Allergic rhinitis Ulcerative colitis Surgical History History of incisional hernia repair History of cervical spinal surgery History of colonoscopy History of appendectomy History of esophagogastroduodenoscopy (EGD) Family History Father Diabetes HTN (hypertension) Heart attack Mother Skin cancer HTN (hypertension) Diabetes Paternal Aunt Heart attack Sister Skin cancer Social History Household Members: Spouse Housing: Apartment Alcohol intake: never Patient Tobacco Use Status: Former Tobacco user Quit Date: 2011 Tobacco use type: Cigarette Years Smoked: (former smoker - onset 15yo, 1ppd x 36yrs, 35pyh, quit 2011) e-Cigarette/Vaping Use: Never Used Second Hand Smoke Exposure: No Substance Use Type: Marijuana service: No Current occupational status: retired Cognitive needs: No Hearing needs: No Vision needs: No Review of Systems Const All systems reviewed & are unremarkable except as noted in HPI and below Reports no additional complaints Eyes Reports no additional complaints ENT Reports no additional complaints Card Reports no additional complaints Resp Reports no additional complaints GI Reports no additional complaints Reports as per HPI Musc Reports no additional complaints Skin/Breast Reports system reviewed and no additional complaints, except as documented Neuro Reports no additional complaints Psych Reports no additional complaints Endo Reports no additional complaints Jamie/Lymph Reports no additional complaints Aller/Immun Reports no additional complaints Office Procedures Post Void Residual Post Residual Void Post Void Residual (PVR): 25 [id number] Void Residual by ultrasound Results AMB Urinalysis, Automated UA Leukoctes 0 Angel/uL Last Edit by GEORGETTE Johnson on 09/25/23 09:47 UA Nitrite Negative Last Edit by GEORGETTE Johnson on 09/25/23 09:47 UA Urobilinogen 0.2 mg/dL Last Edit by GEORGETTE Johnson on 09/25/23 09:4 7 UA Protein 0 mg/dL Last Edit by GEORGETTE Johnson on 09/25/23 09:47 UA pH 6.0 Last Edit by GEORGETTE Johnson on 09/25/23 09:47 UA Blood 0 Orlin/uL Last Edit by GEORGETTE Johnson on 09/25/23 09:47 UA Specific [place] 1.010 Last Edit by GEORGETTE Johnson on 09/25/23 09: 47 UA Ketone Negative Last Edit by GEORGETTE Johnson on 09/25/23 09:47 UA Bilirubin 0 mg/dL Last Edit by GEORGETTE Johnson on 09/25/23 09:47 UA Glucose 0 mg/dL Last Edit by GEORGETTE Johnson on 09/25/23 09:47 Results Reviewed Results Reviewed: Laboratory Last Values Urine pH (Auto) 6.0 09/25/23 09:34 Specific [place] (Auto) 1.010 09/25/23 09:34 Urine Protein (Auto) 0 mg/dL 09/25/23 09:34 Glucose (UA)(Auto) 0 mg/dL 09/25/23 09:34 Urine Ketones (Auto) Negative 09/25/23 09:34 Urine Blood (Auto) 0 Orlin/uL 09/25/23 09:34 Urine Nitrite (Auto) Negative 09/25/23 09:34 Urine Bilirubin (Auto) 0 mg/dL 09/25/23 09:34 Urine Urobilinogen (Auto) 0.2 mg/dL 09/25/23 09:34 Leukocyte Esterase (Auto) 0 Angel/uL 09/25/23 09:34 Assessment & Plan Assessment & Plan (1) Screening PSA (prostate specific antigen): Code(s): Z12.5 - Encounter for screening for malignant neoplasm of prostate (2) Diabetes: Code(s): E11.9 - Type 2 diabetes mellitus without complications Qualifiers: Diabetes mellitus complication status: without complication (3) Personal history of nicotine dependence: Comment: (former smoker - onset 15yo, 1ppd x 36yrs, 35pyh, quit 2011) Code(s): Z87.891 - Personal history of nicotine dependence (4) BPH w urinary obs/LUTS: Code(s): N40.1 - Benign prostatic hyperplasia with lower urinary tract symptoms; N13.8 - Other obstructive and reflux uropathy (5) Erectile dysfunction: Code(s): N52.9 - Male erectile dysfunction, unspecified Plan Free and total testosterone levels, FSH, LH, fasting glucose. Continue oxybutynin 10 mg daily. Annual PSA screening. Follow-up telehealth in 6 weeks to review blood work. Follow-up in 6 months to monitor urine and PVRs. Orders: Orders PSA,Total (Free>4and<10) 09/15/23 N13.8 - Other obstructive and reflux uropathy, N40.1 - Benign prostatic hyperplasia with lower urinary tract symptoms, Z12.5 - Encounter for screening for malignant neoplasm of prostate Glucose Fasting Today E11.9 - Type 2 diabetes mellitus without complications, N52.9 - Male erectile dysfunction, unspecified Testosterone, Free/Total Today N52.9 - Male erectile dysfunction, unspecified Lutenizing Hormone Today N52.9 - Male erectile dysfunction, unspecified AMB Urinalysis Automated Today Z13.9 - Encounter for screening, unspecified AMB Post Void Residual by ultrasound Today N39.8 - Other specified disorders of urinary system Hemoglobin A1c Today E11.9 - Type 2 diabetes mellitus without complications, N52.9 - Male erectile dysfunction, unspecified Follicle Stimulating Hormone Today N52.9 - Male erectile dysfunction, unspecified Medications: Refilled oxybutynin chloride ER 10 mg PO DAILY 90 tabs 3RF Coding Level of Care Code Est Pt Level 4 (20657) Diagnoses Screening PSA (prostate specific antigen) Z12.5 Diabetes E11.9 Diabetes mellitus complication status: without complication Personal history of nicotine dependence Z87.891 BPH w urinary obs/LUTS N40.1; N13.8 Erectile dysfunction N52.9 CPT Codes Post Residual Void - PVR CPT Code: 28603-[place] Void Residual by ultrasound ([id number])
== END 2023-09-25 10:17 | disposition home or self-care (01) ==
PROVIDERS: PCP Internal Medicine; Visit Provider Urology
DX: Z12.5 Encounter for screening for malignant neoplasm of prostate (principal); E11.9 Type 2 diabetes mellitus without complications; Z87.891 Personal history of nicotine dependence; N40.1 Benign prostatic hyperplasia with lower urinary tract symptoms; N13.8 Other obstructive and reflux uropathy; N52.9 Male erectile dysfunction, unspecified; Z13.9 Encounter for screening, unspecified
CPT/HCPCS: 99214

== ENCOUNTER → 2023-09-25 08:59 | Outpatient (BNVA) | payer OTHER, SELFPAY | PROVIDERS: PCP Internal Medicine; Visit Provider Urology | DX: Z12.5 Encounter for screening for malignant neoplasm of prostate (principal); N40.1 Benign prostatic hyperplasia with lower urinary tract symptoms; N13.8 Other obstructive and reflux uropathy; N52.9 Male erectile dysfunction, unspecified; E11.9 Type 2 diabetes mellitus without complications; Z87.891 Personal history of nicotine dependence | CPT/HCPCS: 51798; 81003; 99212 ==

== ENCOUNTER 2023-11-07 09:48 | Outpatient (REF) | payer OTHER, SELFPAY ==
[2023-11-07 11:14] LABS: Estimated Average Glucose 137 mg/dL; Hemoglobin A1c % 6.4 % (<6.0)
[2023-11-07 11:41] LABS: Alanine Aminotransferase 44 U/L (0-40); Albumin Level 4.4 g/dL (3.5-5.0); Alkaline Phosphatase 93 U/L (39-117); Anion Gap 14 (12-20); Aspartate Amino Transferase 21 U/L (5-37); Bilirubin Total 0.8 mg/dL (0.0-1.0); Blood Urea Nitrogen 12 mg/dL (9-16); Calcium 9.5 mg/dL (8.4-10.2); Carbon Dioxide 27 mmol/L (22-29); Chloride 103 mmol/L (96-108); Cholesterol 117 mg/dL (<200); Estimated Glomerular Filt Rate > 60; Glucose Fasting 166 mg/dL (60-99); HDL Cholesterol 34 mg/dL (>40); LDL Cholesterol Calculated 62 mg/dL (<100); Potassium 3.9 mmol/L (3.3-5.1); Sodium 140 mmol/L (135-145); Total Protein 7.1 g/dL (6.5-8.0); Triglycerides 105 mg/dL (<150)
[2023-11-07 11:51] LABS: Creatinine Urine 127.39 mg/dL; Microalbum/Creatinine Ratio Ur 7.8 ug/mg cr (<30)
[2023-11-07 11:56] LABS: Vitamin D 25-OH Total 52.4 ng/mL (>30)
[2023-11-08 11:58] LABS: Follicle Stimulating Hormone 9.7 mIU/mL (1.4-12.8); Lutenizing Hormone 7.7 mIU/mL (1.6-15.2)
[2023-11-13 16:53] LABS: Testosterone, Free 63.6 pg/mL (35.0-155.0); Testosterone, Total 471 ng/dL (250-1100)
== END 2023-11-07 09:49 | disposition home or self-care (01) ==
LOC: HO.LAB 09:48
PROVIDERS: PCP Internal Medicine; Visit Provider Urology
DX: E11.9 Type 2 diabetes mellitus without complications (principal); N52.9 Male erectile dysfunction, unspecified; E55.9 Vitamin D deficiency, unspecified; E78.5 Hyperlipidemia, unspecified
CPT/HCPCS: 36415; 80053; 80061; 82043; 82306; 82570; 83001; 83002; 83036; 84402; 84403

== ENCOUNTER 2023-11-13 13:27 | Outpatient (AMB) | payer OTHER, SELFPAY ==
[2023-11-13 13:47] VITALS: BP 128/78; PULSE 69; O2SAT 97; BMI 32.5
--- NOTE | 2023-11-13 13:47 | A.OFFVIS_ITS ---
Vital Signs 11/13/23 13:47 Height 5 ft 7 in Weight 207 lb 3.752 oz BMI 32.5 BP 128/78 Blood Pressure Location Lt brachial Position Sitting Pulse 69 Pulse Source Pulse Oximeter Pulse Oximetry (%) 97 Oxygen Delivery Method Room Air Intake Visit Reasons: COPD Intake Note: pt is here for follow up and states he is states his breathing is well, but a few months ago he had an endoscopy Allergies Penicillins [PENICILLINS] Allergy (Unknown, Verified 11/13/23 13:54) ANAPHYLAXIS Medication List - Last Reconciled 11/13/23 by Vianca Lyons MD albuterol sulfate 2.5 mg inhalation Q6H PRN atorvastatin 20 mg PO BEDTIME 90 days [bath mat As directed] bisacodyl 10 mg (2 x 5 mg) PO BEDTIME blood sugar diagnostic ([employer] Ultra Test strips) Use 1 test strip three times a day blood-glucose meter ([employer] Ultra2 Meter) As directed bupropion HCl XL 300 mg PO QAM cdcognmhkk-jcozllliyuucm-fffa 50-300-40 mg (Fioricet) 1 cap PO Q4-6H PRN clonazepam 1 mg PO 1 tab in pm and 1/2 tab Qam; clotrimazole-betamethasone 1-0.05 % 1 appl topical BID cyclobenzaprine 10 mg PO TID PRN cyclosporine 0.05% 1 drp ophthalmic (eye) BID dexlansoprazole 60 mg PO DAILY dicyclomine 20 mg PO BID emollient combination no.32 (EpiCeram topical emulsion, extended release) topical empagliflozin (Jardiance) 10 mg PO DAILY 90 days escitalopram oxalate (Lexapro) 10 mg PO DAILY hydrocortisone 2.5% (Proctosol HC) 1 appl [place] BID Incruse Ellipta 62.5 mcg/actuation (umeclidinium) 1 inh PO DAILY NS ketoconazole 2% appl topical DAILY PRN lancets ([employer] UltraSoft 2 Lancet) Use 1 lancet once a day meloxicam 7.5 mg PO DAILY mesalamine 2.4 grams (2 x 1.2 gram) PO DAILY metformin 500 mg PO BID 90 days montelukast 10 mg PO DAILY tt-cmf-fchyn-F5-aetasvo-uydjwe [id number] mcg (Centrum Silver Men) 1 tab PO DAILY oxybutynin chloride ER 10 mg PO DAILY propranolol ER 80 mg PO BID ropinirole 1 mg PO BEDTIME [shower head As directed] simethicone (Gas Relief Extra Strength) 125 mg PO BID-QID sucralfate 20 mL PO QNOON tadalafil 20 mg PO ONCE PRN 30 days triamcinolone acetonide 0.1% 1 appl topical BID-TID Ventolin HFA 90 mcg/actuation (albuterol sulfate) 2 puffs PO QID PRN NS zolpidem 10 mg PO BEDTIME PRN Do you need a note to return to daycare/school/sports/work: No HPI HPI COPD: Details: This 63 years old gentleman is here for his follow-up after 6 months. He is being treated for allergic rhinitis and Asthma/COPD. He stated that breathing carvajal he is doing okay, Most of his talked today was about his the GERD and recent endoscopy. He also complains that he gets frequent bouts of sore throat and hoarse like feeling. He wants to have some antibiotic on hand, so that he can use if he travels, and gets sick. He uses Incruse Ellipta 1 inhalation daily and Ventolin just as needed. He also stays on montelukast 10 mg daily to control his perineal allergic rhinitis. [facility] Medical History Hyperlipidemia LDL goal <70 Upper abdominal pain History of smoking at least 1 pack per day for at least 30 years Balanitis Screening PSA (prostate specific antigen) Abdominal wall hernia Physical exam Elevated fasting glucose Personal history of nicotine dependence Pain in both feet Neck pain Lumbar pain Impaired glucose tolerance Abdominal bloating Obesity (BMI 30-39.9) Abdominal cramping History of COVID-19 Insomnia COPD (chronic obstructive pulmonary disease) Allergic rhinitis Ulcerative colitis Surgical History History of incisional hernia repair History of cervical spinal surgery History of colonoscopy History of appendectomy History of esophagogastroduodenoscopy (EGD) Family History Father Diabetes HTN (hypertension) Heart attack Mother Skin cancer HTN (hypertension) Diabetes Paternal Aunt Heart attack Sister Skin cancer Social History Household Members: Spouse Housing: Apartment Alcohol intake: never Patient Tobacco Use Status: Former Tobacco user Quit Date: 2011 Tobacco use type: Cigarette Years Smoked: (former smoker - onset 15yo, 1ppd x 36yrs, 35pyh, quit 2011) e-Cigarette/Vaping Use: Never Used Second Hand Smoke Exposure: No Substance Use Type: Marijuana service: No Current occupational status: retired Cognitive needs: No Hearing needs: No Vision needs: No Review of Systems Const All systems reviewed & are unremarkable except as noted in HPI and below Eyes Reports no additional complaints ENT Reports nasal congestion and Reports nasal discharge Card Denies chest pain, Denies irregular heart rhythm and Denies leg edema Resp Reports as per HPI GI Reports heartburn (Being treated for GERD symptoms) Reports erectile dysfunction and Reports urinary incontinence Musc Reports no additional complaints Skin/Breast Reports system reviewed and no additional complaints, except as documented Neuro Reports no additional complaints Psych Reports anxiety and Reports depression Endo Reports no additional complaints Jamie/Lymph Reports no additional complaints Physical Exam Vital Signs: Last Vital Signs Pulse 69 11/13/23 13:47 BP 128/78 11/13/23 13:47 Pulse Ox 97 11/13/23 13:47 Oxygen Delivery Method Room Air 11/13/23 13:47 BMI result Body Mass Index 32.5 Const General: comfortable, no acute distress, alert and awake Orientation/consciousness: patient oriented x3 HEENT Head: Yes normal to inspection General nose exam: No nasal polyps present and No nasal discharge present Face and sinus: Yes sinuses nontender Mouth: oropharynx normal Throat: Yes posterior oropharynx normal Eyes General: appearance normal, both eyes and all related structures Neck Neck: Yes normal visual inspection, Yes no lymphadenopathy, Yes trachea midline and Yes no JVD Thyroid: Thyroid normal Chest Chest palpation & inspection: normal inspection of the chest, normal palpation of entire chest wall and no tenderness Resp Other: Percussion note resonant, breath sounds are slightly distant with prolonged expiratory phase, equal on both sides. No wheezes or rhonchi are heard today. Cardio Palpation: normal PMI Rate: regular rate Rhythm: regular rhythm Heart sounds: no gallops and no murmurs GI Palpation (GI): Soft to palpation, nontender, No hepatosplenomegaly present, no masses and Other GI palpation findings present (Abdomen moderately protuberant, due to surgical scar/ventral hernia ) Auscultation: normal bowel sounds Back/Spine/Pelvis Thoracic/Lumbar Spine: thoracic and lumbar spine normal to inspection Skin General skin exam: no rashes or lesions noted Neuro General: patient oriented x3 and no focal motor deficits Cranial nerves: Yes CN's II-XII intact bilaterally Extrem General: Yes normal to inspection, Yes no clubbing, cyanosis or edema and Yes no calf tenderness Psych Appearance: grossly normal and well kempt Speech and movement: Normal speech and movement present Assessment & Plan Assessment & Plan (1) Allergic rhinitis: Comment: Chronic, perineal, allergic type rhinitis, remains controlled. Currently has increased symptoms . Code(s): J30.9 - Allergic rhinitis, unspecified Category: Medical Plan: [place] : Montelukast 10 mg daily . Flonase nasal spray 2 sprays in each nare daily Zyrtec 10 mg po PRN (2) COPD (chronic obstructive pulmonary disease): Comment: Moderate degree of chronic obstructive pulmonary disease, ., SEC TO PAST h/o SMOKING STABLE AT THIS TIME. But he is prone to get frequent upper respiratory infections. Code(s): J44.9 - Chronic obstructive pulmonary disease, unspecified Category: Medical Qualifiers: COPD type: emphysema Emphysema type: panlobular Qualified Code(s): J43.1 - Panlobular emphysema Plan: [place] : Incruse Ellipta one inh daily Montelukast 10 mg po daily Ventolin HFA 2 puffs Q 6 hours p.r.n.. Medications: New doxycycline hyclate 100 mg PO BID 10 days 20 tabs 0RF bronchitis Coding Level of Care Code Est Pt Level 3 (37217) Diagnoses Allergic rhinitis J30.9 Panlobular emphysema J43.1 COPD type: emphysema Emphysema type: panlobular
== END 2023-11-13 14:15 | disposition home or self-care (01) ==
PROVIDERS: PCP Internal Medicine; Visit Provider Internal Medicine
DX: J30.9 Allergic rhinitis, unspecified (principal); J43.1 Panlobular emphysema
CPT/HCPCS: 99213

== ENCOUNTER → 2023-11-13 13:27 | Outpatient (BNVA) | payer OTHER, SELFPAY | PROVIDERS: PCP Internal Medicine; Visit Provider Internal Medicine | DX: J30.9 Allergic rhinitis, unspecified (principal); J43.1 Panlobular emphysema | CPT/HCPCS: 99212 ==

== ENCOUNTER 2023-12-03 15:52 | Outpatient (AMB) | payer OTHER, SELFPAY ==
--- NOTE | 2023-12-03 15:44 | A.OFFVIS_ITS ---
Intake Visit Reasons: 6w/labs Allergies Penicillins [PENICILLINS] Allergy (Unknown, Verified 11/13/23 13:54) ANAPHYLAXIS HPI Comments Details: 12/03/23--telehealth follow-up to review lab results- Discussed testosterone levels are within normal limits. Will trial Cialis 5 mg daily. The patient is prescribed oxybutynin 10 mg daily for OAB symptoms, he states he has had breakthru leakage episodes. 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 Discussed increase oxybutynin to 15 mg daily. Labs: 09/15/23--PSA--2.93, 11/07/23--Total Testosterone - 471, FSH and LH is WNL. 30 minutes spent in review of records pertaining to this visit and including discussion with the patient and documentation of this visit. Review of chart: 09/25/23--Kali is a 62-year-old male who presents today to the office for a follow-up. He is prescribed oxybutynin 10 mg for overactive bladder symptoms. Certified translator/interpreter present. The patient states that he his bladder symptoms are stable on the oxybutynin. He does have some dry mouth symptoms. He states that his PCP has prescribed Cialis 20 mg to use p.r.n.. He is concerned about low testosterone contributing to erectile issues. I have discussed that diabetes is a comorbidity for erectile dysfunction. I have reviewed PSA results with the patient. PSA--09/15/2023--2.93 ng/mL. Bladder scan PVR 25 mL. Urinalysis negative leukocytes, negative blood. PLAN: Free and total testosterone levels, FSH, LH, fasting glucose. Continue oxybutynin 10 mg daily. Annual PSA screening. Follow-up telehealth in 6 weeks to review blood work. 03/12/2023?He has seen Jc Nava on 09/05/2022 for erectile dysfunction, elevated PSA, and lower urinary tract symptoms. The tolterodine ER 2 mg was changed to tolterodine 4 mg at that time. He has been taking Oxybutynin 10 mg daily and states that works better than the tolteridine. He c/o's of redness around the penis. Plan discussed-- Oxybutynin 10 mg.PSA screening was ordered. Lotrisone cream 1 % was prescribed. Apply antifungal cream to the foreskin and glans of the penis BID for a week and then PRN. UA? Leukocytes: negative: blood: negative. Exam - balanitis. Follow up with Dr. Fitzpatrick in 6 months. Review of tests: I reviewed the US abdomen results from 08/12/2031 revealed right kidney was visualized, no hydronephrosis or parenchymal lesions noted. PSA 02/04/22- 2.94 PFSH Medical History Hyperlipidemia LDL goal <70 Upper abdominal pain History of smoking at least 1 pack per day for at least 30 years Balanitis Screening PSA (prostate specific antigen) Abdominal wall hernia Physical exam Elevated fasting glucose Personal history of nicotine dependence Pain in both feet Neck pain Lumbar pain Impaired glucose tolerance Abdominal bloating Obesity (BMI 30-39.9) Abdominal cramping History of COVID-19 Insomnia COPD (chronic obstructive pulmonary disease) Allergic rhinitis Ulcerative colitis Surgical History History of incisional hernia repair History of cervical spinal surgery History of colonoscopy History of appendectomy History of esophagogastroduodenoscopy (EGD) Family History Father Diabetes HTN (hypertension) Heart attack Mother Skin cancer HTN (hypertension) Diabetes Paternal Aunt Heart attack Sister Skin cancer Social History Household Members: Spouse Housing: Apartment Alcohol intake: never Patient Tobacco Use Status: Former Tobacco user Tobacco use type: Cigarette Years Smoked: (former smoker - onset 15yo, 1ppd x 36yrs, 35pyh, quit 2011) e-Cigarette/Vaping Use: Never Used Second Hand Smoke Exposure: No Substance Use Type: Marijuana service: No Current occupational status: retired Cognitive needs: No Hearing needs: No Vision needs: No Review of Systems Const All systems reviewed & are unremarkable except as noted in HPI and below Reports no additional complaints Eyes Reports no additional complaints ENT Reports no additional complaints Card Reports no additional complaints Resp Reports no additional complaints GI Reports no additional complaints Reports as per HPI Musc Reports no additional complaints Skin/Breast Reports system reviewed and no additional complaints, except as documented Neuro Reports no additional complaints Psych Reports no additional complaints Endo Reports no additional complaints Jamie/Lymph Reports no additional complaints Aller/Immun Reports no additional complaints Telehealth Telehealth Telehealth Platform: [employer] Location of provider rendering services: practice address Location of patient: address on file Patient Identification confirmed using: Name, : Yes Telehealth method: voice only Patient verbally consented to treatment: Yes Patient verbally consented to billing insurance company: Yes Patient informed of any privacy concerns related to visit: Yes Results Reviewed Results Reviewed: Date of Service: 08/12/22 EXAMINATION: US ABDOMEN LIMITED CLINICAL INFORMATION:? Nonalcoholic steatohepatitis. COMPARISON:? Ultrasound abdomen complete 04/09/2022. Limited abdominal ultrasound 07/04/2021. CT abdomen and pelvis 07/11/2020. FINDINGS: PANCREAS: Limited. The visualized pancreatic head and body are normal in appearance. The remainder of the pancreas is obscured from visualization by the overlying bowel gas. LIVER: There is mild hepatomegaly, with a longitudinal span of 17.7 cm The liver contour is normal. There is diffuse increased liver parenchymal echogenicity, with pericholecystic sparing.? No focal hepatic lesion. There is no intrahepatic biliary duct dilatation seen. GALLBLADDER: Normal. The gallbladder is physiologically distended without evidence of stones, sludge, polyps, wall thickening or pericholecystic fluid. COMMON BILE DUCT: Normal in caliber measuring 0.3 cm in diameter.? RIGHT KIDNEY: Normal. No hydronephrosis. No renal calculi or focal parenchymal lesions. The kidney measures 11.7 cm in maximum dimension. FREE FLUID: None. IMPRESSION:? There is generalized increase in hepatic echotexture, consistent with fatty infiltration or hepatocellular disease. Characteristic pericholecystic sparing favors fatty infiltration. Provided history of GUZMAN noted. No focal hepatic mass or intrahepatic biliary dilatation is seen. Assessment & Plan Assessment & Plan (1) Diabetes: Code(s): E11.9 - Type 2 diabetes mellitus without complications Category: Medical Qualifiers: Diabetes mellitus complication status: without complication (2) Personal history of nicotine dependence: Comment: (former smoker - onset 15yo, 1ppd x 36yrs, 35pyh, quit 2011) Code(s): Z87.891 - Personal history of nicotine dependence Category: Medical (3) BPH w urinary obs/LUTS: Code(s): N40.1 - Benign prostatic hyperplasia with lower urinary tract symptoms; N13.8 - Other obstructive and reflux uropathy Category: Medical (4) Erectile dysfunction: Code(s): N52.9 - Male erectile dysfunction, unspecified Category: Medical (5) OAB (overactive bladder): Code(s): N32.81 - Overactive bladder Category: Medical Plan increase oxybutynin to 15 mg daily, Cialis 5 mg daily fu in 6 months Medications: New tadalafil (Cialis) [id number] [facility] [id number] Member [id number] 5 mg PO DAILY 30 tabs 3RF oxybutynin chloride ER to replace oxybutynin 10 mg 15 mg PO DAILY 30 tabs 3RF Discontinued tadalafil may use up to 1.5 tabs Discontinued Reason: Doctor's Order 20 mg PO ONCE 30 days PRN 30 tabs 0RF sexual activity N52.01 - Erectile dysfunction due to arterial insufficiency, N52.9 - Male erectile dysfunction, unspecified oxybutynin chloride ER Discontinued Reason: Doctor's Order 10 mg PO DAILY 90 tabs 3RF Patient Instructions: The patient had an opportunity to ask questions regarding treatment plan. The patient expressed understanding and agreement with the above treatment plan. The patient is aware they should contact our office by phone for worsening of their current condition or the appearance of new symptoms. Compliance is encouraged with any medications and followup testing that is ordered. It is a privilege to be allowed the opportunity to participate in the urologic care of your patient. If you have any questions or concerns regarding treatment for the above conditions please do not hesitate to contact me. The office telephone contact is [phone]. This note is constructed in part using voice recognition software. While every effort has been made to ensure accuracy managing supervisor errors may have been included. Yours sincerely, Elly Peralta MD Coding Level of Care Code Tele Est Pt Level 4 (76757) Diagnoses Diabetes E11.9 Diabetes mellitus complication status: without complication Personal history of nicotine dependence Z87.891 BPH w urinary obs/LUTS N40.1; N13.8 Erectile dysfunction N52.9 OAB (overactive bladder) N32.81
== END 2023-12-03 16:06 | disposition home or self-care (01) ==
LOC: HO.HUSH 15:52
PROVIDERS: PCP Internal Medicine; Visit Provider Urology
DX: E11.9 Type 2 diabetes mellitus without complications (principal); Z87.891 Personal history of nicotine dependence; N40.1 Benign prostatic hyperplasia with lower urinary tract symptoms; N13.8 Other obstructive and reflux uropathy; N52.9 Male erectile dysfunction, unspecified; N32.81 Overactive bladder
CPT/HCPCS: 99442

== ENCOUNTER → 2023-12-03 15:52 | Outpatient (BNVA) | payer OTHER, SELFPAY | PROVIDERS: PCP Internal Medicine; Visit Provider Urology ==

== ENCOUNTER 2023-12-18 13:57 | Outpatient (AMB) | payer OTHER, SELFPAY ==
--- NOTE | 2023-12-18 14:02 | MHC.AMNUTRGE ---
VS Expanded 12/18/23 14:03 Height 5 ft 7 in Weight 208 lb 1.862 oz BMI 32.6 Intake Visit Reasons: T2DM/CONFIRMED Allergies Penicillins [PENICILLINS] Allergy (Unknown, Verified 11/13/23 13:54) ANAPHYLAXIS Nutrition Presentation Details: Pt presents for MNT f/u for T2DM Pt reports monitoring bg and bg ranging from 106-146 mg/ and 140-160s before meals , in the fating state and metformin 1000 mg twice a day. Pt reports having 3 meals per day , working on following healthy plate method Choosing foods lower in sugar , reading food labels, Choosing lower salt foods BS Monitoring Most Recent Diabetes Results: Microalb/Creat Ratio 7.8 ug/mg cr (<30) 11/07/23 Cholesterol 117 mg/dL (<200) 11/07/23 HDL Cholesterol 34 mg/dL (>40) L 11/07/23 Triglycerides 105 mg/dL (<150) 11/07/23 Creatinine 1.01 mg/dL (0.5-1.4) 11/07/23 Blood Urea Nitrogen 12 mg/dL (9-16) 11/07/23 Sodium 140 mmol/L (135-145) 11/07/23 Potassium 3.9 mmol/L (3.3-5.1) 11/07/23 Chloride 103 mmol/L (96-108) 11/07/23 Carbon Dioxide 27 mmol/L (22-29) 11/07/23 Calcium 9.5 mg/dL (8.4-10.2) 11/07/23 AST 21 U/L (5-37) 11/07/23 ALT 44 U/L (0-40) H 11/07/23 Total Protein 7.1 g/dL (6.5-8.0) 11/07/23 Albumin 4.4 g/dL (3.5-5.0) 11/07/23 [facility] Medical History Hyperlipidemia LDL goal <70 Upper abdominal pain History of smoking at least 1 pack per day for at least 30 years Balanitis Screening PSA (prostate specific antigen) Abdominal wall hernia Physical exam Elevated fasting glucose Personal history of nicotine dependence Pain in both feet Neck pain Lumbar pain Impaired glucose tolerance Abdominal bloating Obesity (BMI 30-39.9) Abdominal cramping History of COVID-19 Insomnia COPD (chronic obstructive pulmonary disease) Allergic rhinitis Ulcerative colitis Surgical History History of incisional hernia repair History of cervical spinal surgery History of colonoscopy History of appendectomy History of esophagogastroduodenoscopy (EGD) Family History Father Diabetes HTN (hypertension) Heart attack Mother Skin cancer HTN (hypertension) Diabetes Paternal Aunt Heart attack Sister Skin cancer Social History Household Members: Spouse Housing: Apartment Alcohol intake: never Patient Tobacco Use Status: Former Tobacco user Tobacco use type: Cigarette Years Smoked: (former smoker - onset 15yo, 1ppd x 36yrs, 35pyh, quit 2011) e-Cigarette/Vaping Use: Never Used Second Hand Smoke Exposure: No Substance Use Type: Marijuana service: No Current occupational status: retired Cognitive needs: No Hearing needs: No Vision needs: No Assessment & Plan Assessment & Plan (1) Diabetes: Code(s): E11.9 - Type 2 diabetes mellitus without complications Category: Medical Qualifiers: Diabetes mellitus complication status: without complication Plan wt: 98 kg (97 kg 03/2023) (95 kg 05/2023), 94 kg (08/2023), 94 kg (11/2023) Est kcal needs as per MSJ: 2100 (40% carb, 30% protein/fat) Est fluid needs as per 25-30 ml/d: 2450 Est prot per day as per 1 g/kg bw: 98 Recommend fiber intake : 8-10 g per day and gradually increase to 25-28 g per day for women and 35-38 g for men or as tolerated Recommend sodium intake per day : less than 2000 mg Educated patient on: ( R = reviewed V = verbalizes understanding N/R = needs review N/A = not applicable Food sources of carbohydrate, adequate serving sizes and its role in various health conditions: R ,V Differences between complex carbohydrates a simple carbohydrates, role of fiber in diet: R Differences between types of fats and role in diet (mono on saturated fat fatty acids, saturated fatty acids, trans fats): R Food sources of sodium in salt and healthy modifications for heart health in kidney health: R , V Healthy plate method concept: R, V Physical activity: Benefits a precaution: R , V Hypoglycemia protocol (rule of 15): R , V Dietary prevention of Hyperglycemia: R , V Patient Instructions: Continue working on following healthy plate method, choosing high fiber foods Be aware of high salt foods Include omega 3 source of foods Coding Level of Care Code Nutr Indiv Subseq (75872) Diagnoses Diabetes E11.9 Diabetes mellitus complication status: without complication Time Spent (min) 30
[2023-12-18 14:03] VITALS: BMI 32.6
== END 2023-12-18 14:35 | disposition home or self-care (01) ==
PROVIDERS: PCP Internal Medicine; Visit Provider Dietitian, Registered
DX: E11.9 Type 2 diabetes mellitus without complications (principal)

== ENCOUNTER → 2023-12-18 13:57 | Outpatient (BNVA) | payer OTHER, SELFPAY | PROVIDERS: PCP Internal Medicine; Visit Provider Dietitian, Registered | DX: E11.9 Type 2 diabetes mellitus without complications (principal) | CPT/HCPCS: 97803 ==

== ENCOUNTER 2023-12-26 14:47 | Outpatient (AMB) | payer OTHER, SELFPAY ==
--- NOTE | 2023-12-26 14:52 | MHC.OFFVIS ---
Vital Signs 12/26/23 14:54 Height 5 ft 7 in Weight 204 lb 9.423 oz BMI 32.0 BP 114/72 Blood Pressure Location Rt brachial Position Sitting Pulse 64 Pulse Source Pulse Oximeter Intake Visit Reasons: DM/CONFIRMED Intake Note: New patient presents today for T2DM. Referred back to PCP. Last Diabetic Eye exam: Reports he has an upcoming appointment, unsure when. Last Podiatry Visit: November 04, 2023 Random Glucose: 131 mg/dl HgA1C: 6.4% 11/07/2023 Guitar Teacher Required: Yes Guitar Teacher Language: Chemical Treatment Plant Technician Name: John, Medical Staff CMI Information Interpreted: non-clinical & clinical Accompanied by: Self / Same As Patient Allergies Penicillins [PENICILLINS] Allergy (Unknown, Verified 12/26/23 14:56) ANAPHYLAXIS Medication List - Last Reconciled 12/26/23 by Asya Loo PA-C albuterol sulfate 2.5 mg inhalation Q6H PRN atorvastatin 20 mg PO BEDTIME 90 days [bath mat As directed] bisacodyl 10 mg (2 x 5 mg) PO BEDTIME blood sugar diagnostic (Lime&Tonicuch Ultra Test strips) Use 1 test strip three times a day blood-glucose meter (Lime&Tonicuch Ultra2 Meter) As directed bupropion HCl XL 300 mg PO QAM bfcyvgluzy-wqxamiuddfgou-munz 50-300-40 mg (Fioricet) 1 cap PO Q4-6H PRN clonazepam 1 mg PO 1 tab in pm and 1/2 tab Qam; clotrimazole-betamethasone 1-0.05 % 1 appl topical BID cyclobenzaprine 10 mg PO TID PRN cyclosporine 0.05% 1 drp ophthalmic (eye) BID dexlansoprazole 60 mg PO DAILY dicyclomine 20 mg PO BID doxycycline hyclate 100 mg PO BID 10 days emollient combination no.32 (EpiCeram topical emulsion, extended release) topical empagliflozin (Jardiance) 10 mg PO DAILY 90 days escitalopram oxalate (Lexapro) 10 mg PO DAILY hydrocortisone 2.5% (Proctosol HC) 1 appl SD BID Incruse Ellipta 62.5 mcg/actuation (umeclidinium) 1 inh PO DAILY NS ketoconazole 2% appl topical DAILY PRN lancets (Lime&Tonicuch UltraSoft 2 Lancet) Use 1 lancet three times per day day meloxicam 7.5 mg PO DAILY mesalamine 2.4 grams (2 x 1.2 gram) PO DAILY montelukast 10 mg PO DAILY [id number]-[id number]-[id number]-ipteto 119-51-248-300 mcg (Centrsong Lu) 1 tab PO DAILY oxybutynin chloride ER 15 mg PO DAILY propranolol ER 80 mg PO BID ropinirole 1 mg PO BEDTIME [shower head As directed] simethicone (Gas Relief Extra Strength) 125 mg PO BID-QID sucralfate 20 mL PO QNOON tadalafil (Cialis) 5 mg PO DAILY triamcinolone acetonide 0.1% 1 appl topical BID-TID Ventolin HFA 90 mcg/actuation (albuterol sulfate) 2 puffs PO QID PRN NS zolpidem 10 mg PO BEDTIME PRN HPI HPI DM/CONFIRMED: Details: Patient is a 63-year-old male with a significant past medical history of type 2 diabetes, hyperlipidemia, fatty liver, erectile dysfunction, anxiety and depression presenting today for consultation regarding his diabetes. Endo: He was diagnosed with diabetes in 2022. His last A1c was 6.4. He is currently treated with Jardiance 10 mg. He has been following a cement based materials pump tender which he finds helpful modifications. He was previously on metformin but states that he was taken off of this because his blood sugar was 90. He states he does not really know why this is taken away from him. He used to be on metformin 500 mg twice a day along with the Jardiance. Follows with Podiatry. Denies any peripheral neuropathy. Follows with ophthalmology and denies any retinopathy. He denies any hypo or hyperglycemic events. He is not on an COLT-inhibitor/Arb. He is on atorvastatin 20 mg. Cholesterol listed below, LDL 62. No myalgias. CV: Blood pressure today in the office is 114/72. He denies any chest pain, shortness of breath or palpitations. [facility] Medical History (Updated 12/26/23 @ 15:09 by Asya Loo PA-C) Type 2 diabetes mellitus Hyperlipidemia LDL goal <70 Upper abdominal pain History of smoking at least 1 pack per day for at least 30 years Balanitis Screening PSA (prostate specific antigen) Abdominal wall hernia Physical exam Elevated fasting glucose Personal history of nicotine dependence Pain in both feet Neck pain Lumbar pain Impaired glucose tolerance Abdominal bloating Obesity (BMI 30-39.9) Abdominal cramping History of COVID-19 Insomnia COPD (chronic obstructive pulmonary disease) Allergic rhinitis Ulcerative colitis Surgical History History of incisional hernia repair History of cervical spinal surgery History of colonoscopy History of appendectomy History of esophagogastroduodenoscopy (EGD) Family History Father Diabetes HTN (hypertension) Heart attack Mother Skin cancer HTN (hypertension) Diabetes Paternal Aunt Heart attack Sister Skin cancer Social History Household Members: Spouse Housing: Apartment Alcohol intake: never Patient Tobacco Use Status: Former Tobacco user Tobacco use type: Cigarette Years Smoked: (former smoker - onset 15yo, 1ppd x 36yrs, 35pyh, quit 2011) e-Cigarette/Vaping Use: Never Used Second Hand Smoke Exposure: No Substance Use Type: Marijuana service: No Current occupational status: retired Cognitive needs: No Hearing needs: No Vision needs: No Physical Exam Vital Signs: BMI result Body Mass Index 32.0 Const Orientation/consciousness: patient oriented x3 Neck Neck: Yes no lymphadenopathy Thyroid: Thyroid normal Carotids: no bruits Resp Auscultation: clear to auscultation bilaterally Cardio Rate: regular rate Rhythm: regular rhythm Heart sounds: S1 normal heart sound present and S2 normal heart sound present Peripheral pulses: dorsalis pedis present Neuro General: patient oriented x3, gait normal and no focal motor deficits Extrem Other: Monofilament sensation intact bilaterally. Vibratory sensation intact bilaterally. Skin intact. General: Yes normal to inspection Results Reviewed Results Reviewed: Laboratory Tests 11/07/23 Unknown Sodium 140 Potassium 3.9 Chloride 103 Carbon Dioxide 27 Anion Gap 14 BUN 12 Creatinine 1.01 Estimated GFR > 60 Fasting Glucose 166 H Hemoglobin A1c % 6.4 H Calcium 9.5 Triglycerides 105 Cholesterol 117 LDL Cholesterol, Calc 62 HDL Cholesterol 34 L Assessment & Plan Assessment & Plan (1) Type 2 diabetes mellitus: Code(s): E11.9 - Type 2 diabetes mellitus without complications Category: Medical Qualifiers: Diabetes mellitus marine oil terminal superintendent insulin use: without residential use Diabetes mellitus complication status: with circulatory complication Diabetes mellitus complication detail: with other circulatory complications Qualified Code(s): E11.59 - Type 2 diabetes mellitus with other circulatory complications Plan: will restart metformin 500 mg daily. continue jardiance 10 mg. labs ordered. advised to do prior to next appointment (2) Dyslipidemia: Code(s): E78.5 - Hyperlipidemia, unspecified Category: Medical Plan: Continue current regimen. Will monitor. Orders: Orders Lipid Panel Today E11.59 - Type 2 diabetes mellitus with other circulatory complications, E78.5 - Hyperlipidemia, unspecified Hemoglobin A1c Today E11.59 - Type 2 diabetes mellitus with other circulatory complications, E78.5 - Hyperlipidemia, unspecified Microalbumin, Random (w Creat) Today E11.59 - Type 2 diabetes mellitus with other circulatory complications, E78.5 - Hyperlipidemia, unspecified Comprehensive [place]. Panel Fast Today E11.59 - Type 2 diabetes mellitus with other circulatory complications, E78.5 - Hyperlipidemia, unspecified Medications: New metformin ER 500 mg PO DAILY 90 tabs 3RF Coding Level of Care Code New Pt Level 4 (13820) Complex EM visit Add On G2211 Diagnoses Type 2 diabetes mellitus with other circulatory complication, without long-term current use of insulin E11.59 Diabetes mellitus marine oil terminal superintendent insulin use: without marine oil terminal superintendent use Diabetes mellitus complication status: with circulatory complication Diabetes mellitus complication detail: with other circulatory complications Dyslipidemia E78.5 Time Spent (min) 60
[2023-12-26 14:54] VITALS: BP 114/72; PULSE 64; BMI 32.0
[2023-12-26 15:23] LABS: Glucose, Whole Blood 131 mg/dL (60-115)
== END 2023-12-26 15:53 | disposition home or self-care (01) ==
PROVIDERS: PCP Internal Medicine; Visit Provider Physician Assistant
DX: E11.59 Type 2 diabetes mellitus with other circulatory complications (principal); E78.5 Hyperlipidemia, unspecified
CPT/HCPCS: 99204; G2211

== ENCOUNTER → 2023-12-26 14:47 | Outpatient (BNVA) | payer OTHER, SELFPAY | PROVIDERS: PCP Internal Medicine; Visit Provider Physician Assistant | DX: E11.59 Type 2 diabetes mellitus with other circulatory complications (principal); E78.5 Hyperlipidemia, unspecified | CPT/HCPCS: 82947; 99202 ==

== ENCOUNTER 2024-01-27 14:56 | Outpatient (AMB) | payer OTHER, SELFPAY ==
--- NOTE | 2024-01-27 14:59 | A.OFFPC_ITS ---
Vital Signs 01/27/24 15:00 Height 5 ft 7 in Weight 202 lb BMI 31.6 BP 120/80 Blood Pressure Location Lt brachial Position Sitting Intake Visit Reasons: DM, NEEDS 30 MINUTES Intake Note: Patient here for a follow up DM Store Receiver Required: No Accompanied by: Self / Same As Patient Allergies Penicillins [PENICILLINS] Allergy (Unknown, Verified 01/27/24 15:18) ANAPHYLAXIS Medication List - Last Reconciled 01/27/24 by Shelli Bartlett MD albuterol sulfate 2.5 mg inhalation Q6H PRN atorvastatin 20 mg PO BEDTIME 90 days [bath mat As directed] bisacodyl 10 mg (2 x 5 mg) PO BEDTIME blood sugar diagnostic ([employer] Ultra Test strips) Use 1 test strip three times a day blood-glucose meter (Awesome[employer]uch Ultra2 Meter) As directed bupropion HCl XL 150 mg PO DAILY [id number] 50-300-40 mg (Fioricet) 1 cap PO Q4-6H PRN clonazepam 1 mg PO 1 tab in pm and 1/2 tab Qam; clotrimazole-betamethasone 1-0.05 % 1 appl topical BID cyclobenzaprine 10 mg PO TID PRN cyclosporine 0.05% 1 drp ophthalmic (eye) BID dexlansoprazole 60 mg PO DAILY diclofenac sodium 3% 1 appl topical BID dicyclomine 20 mg PO BID emollient combination no.32 (EpiCeram topical emulsion, extended release) topical empagliflozin (Jardiance) 10 mg PO DAILY 90 days escitalopram oxalate (Lexapro) 10 mg PO DAILY hydrocortisone 2.5% (Proctosol HC) [address] BID Incruse Ellipta 62.5 mcg/actuation (umeclidinium) 1 inh PO DAILY NS ketoconazole 2% appl topical DAILY PRN lancets (AwesomeTouchuch UltraSoft 2 Lancet) Use 1 lancet three times per day day meloxicam 7.5 mg PO DAILY mesalamine 2.4 grams (2 x 1.2 gram) PO DAILY metformin ER 500 mg PO DAILY montelukast 10 mg PO DAILY [id number]-[id number] 459-30-541-300 mcg (Centrum Silver Men) 1 tab PO DAILY oxybutynin chloride ER 15 mg PO DAILY propranolol ER 80 mg PO BID rivaroxaban (Xarelto) 20 mg PO DAILY ropinirole 1 mg PO BEDTIME [shower head As directed] simethicone (Gas Relief Extra Strength) 125 mg PO BID-QID sucralfate 20 mL PO QNOON tadalafil (Cialis) 5 mg PO DAILY triamcinolone acetonide 0.1% 1 appl topical BID-TID Ventolin HFA 90 mcg/actuation (albuterol sulfate) 2 puffs PO QID PRN NS zolpidem 10 mg PO BEDTIME PRN Tobacco use date assessed: 09/17/23 Dental Screening Dental Screen Date: 09/17/23 HPI HPI Comments History of Present Illness Details This is a 63-year-old male with diabetes mellitus type 2, dyslipidemia, mild major depression, ulcerative colitis and COPD that comes for follow-up on his conditions. A1c within goal. LDL within goal. Depression stable with medications and follow by Psychiatry. On mesalamine for ulcerative colitis that is follow by Gastroenterology. COPD controlled with long acting inhaler and follow by pulmonology. No chest pain or shortness on breath. [facility] Medical History Type 2 diabetes mellitus Hyperlipidemia LDL goal <70 Upper abdominal pain History of smoking at least 1 pack per day for at least 30 years Balanitis Screening PSA (prostate specific antigen) Abdominal wall hernia Physical exam Elevated fasting glucose Personal history of nicotine dependence Pain in both feet Neck pain Lumbar pain Impaired glucose tolerance Abdominal bloating Obesity (BMI 30-39.9) Abdominal cramping History of COVID-19 Insomnia COPD (chronic obstructive pulmonary disease) Allergic rhinitis Ulcerative colitis Surgical History History of incisional hernia repair History of cervical spinal surgery History of colonoscopy History of appendectomy History of esophagogastroduodenoscopy (EGD) Family History Father Diabetes HTN (hypertension) Heart attack Mother Skin cancer HTN (hypertension) Diabetes Paternal Aunt Heart attack Sister Skin cancer Social History Household Members: Spouse Housing: Apartment Alcohol intake: never Patient Tobacco Use Status: Former Tobacco user Tobacco use type: Cigarette Years Smoked: (former smoker - onset 15yo, 1ppd x 36yrs, 35pyh, quit 2011) e-Cigarette/Vaping Use: Never Used Second Hand Smoke Exposure: No Substance Use Type: Marijuana service: No Current occupational status: retired Cognitive needs: No Hearing needs: No Vision needs: No Questionnaire Thrive Questionnaire Date Thrive assessed: 09/17/23 KRZYSZTOF-7 AMB Questionnaire KRZYSZTOF-7 Date KRZYSZTOF - 7 assessed: 09/17/23 Source: Developed by Drs. Johnnie Butcher, Zaria Sahu, Mp Sapp and colleagues, with an educational job from [email or web address]. Review of Systems Const All systems reviewed & are unremarkable except as noted in HPI and below Card Denies chest pain at rest, Denies chest pain with activity, Denies edema, Denies irregular heart rhythm, Denies claudication, Denies dyspnea, Denies dyspnea on exertion, Denies orthopnea, Denies paroxysmal nocturnal dyspnea and Denies slow heart rate Resp Denies cough, Denies dyspnea and Denies dyspnea on exertion GI Denies abdominal pain, Denies change in bowel habits, Denies excessive flatus, Denies nausea and Denies vomiting Neuro Denies behavioral changes and Denies lack of coordination Psych Denies behavioral changes Physical exam (Primary Care) Vital Signs: Last Vital Signs BP 120/80 01/27/24 15:00 BMI result Body Mass Index 31.6 Tobacco/Smoking Status: Tobacco use Status Tobacco use date assessed 09/17/23 01/27/24 15:13 Patient Tobacco Use Status Former Tobacco user 01/27/24 15:13 Tobacco use type Cigarette 01/27/24 15:13 e-Cigarette/Vaping Use Never Used 01/27/24 15:13 Thrive Assessment: Date of Thrive Assessment Date Thrive assessed 09/17/23 01/27/24 15:13 Resp Effort & Inspection: normal respiratory effort Auscultation: clear to auscultation bilaterally Cardio Jugular venous distension: no JVD Rate: regular rate Rhythm: regular rhythm Heart sounds: S1 normal heart sound present and S2 normal heart sound present Extrem General: Yes full ROM Assessment and Plan Assessment & Plan (1) Type 2 diabetes mellitus: Code(s): E11.9 - Type 2 diabetes mellitus without complications Qualifiers: Diabetes mellitus senior living insulin use: without watermelon inspector use Diabetes mellitus complication status: with circulatory complication Diabetes mellitus complication detail: with other circulatory complications Qualified Code(s): E11.59 - Type 2 diabetes mellitus with other circulatory complications Plan: Continue Jardiance. A1c goal is equal or less than 7%. (2) COPD (chronic obstructive pulmonary disease): Comment: Moderate degree of chronic obstructive pulmonary disease, ., SEC TO PAST h/o SMOKING STABLE AT THIS TIME. But he is prone to get frequent upper respiratory infections. Code(s): J44.9 - Chronic obstructive pulmonary disease, unspecified Qualifiers: COPD type: emphysema Emphysema type: panlobular Qualified Code(s): J43.1 - Panlobular emphysema Plan: Continue long-acting inhaler. Follow-up with pulmonology. (3) Mild major depression: Code(s): F32.0 - Major depressive disorder, single episode, mild Plan: Continue bupropion. Follow-up with psychiatry. (4) Ulcerative colitis: Code(s): K51.90 - Ulcerative colitis, unspecified, without complications Plan: Continue mesalamine. Follow-up by Gastroenterology. (5) Dyslipidemia: Code(s): E78.5 - Hyperlipidemia, unspecified Plan: Continue statins. Repeat lipid panel. LDL goal is less than 70. Orders: Orders Lipid Panel 4 Months E78.5 - Hyperlipidemia, unspecified Microalbumin, Random (w Creat) 4 Months E11.9 - Type 2 diabetes mellitus without complications Comprehensive [place]. Panel Fast 4 Months E11.59 - Type 2 diabetes mellitus with other circulatory complications Medications: New diclofenac sodium 3% 1 appl topical BID PRN 100 grams 2RF pain 30 days Refilled empagliflozin (Jardiance) 10 mg PO DAILY 90 tabs 0RF 90 days [bath mat] As directed 1 ea 0RF M54.50 - Low back pain, unspecified atorvastatin 20 mg PO BEDTIME 90 tabs 1RF 90 days Coding Level of Care Code Est Pt Level 4 (63699) Complex EM visit Add On G2211 Diagnoses Type 2 diabetes mellitus with other circulatory complication, without long-term current use of insulin E11.59 Diabetes mellitus senior living insulin use: without senior living use Diabetes mellitus complication status: with circulatory complication Diabetes mellitus complication detail: with other circulatory complications Panlobular emphysema J43.1 COPD type: emphysema Emphysema type: panlobular Mild major depression F32.0 Ulcerative colitis K51.90 Dyslipidemia E78.5 Time Spent (min) 24
[2024-01-27 15:00] VITALS: BP 120/80; BMI 31.6
== END 2024-01-27 15:35 | disposition home or self-care (01) ==
PROVIDERS: PCP Internal Medicine; Visit Provider Internal Medicine
DX: E11.59 Type 2 diabetes mellitus with other circulatory complications (principal); J43.1 Panlobular emphysema; F32.0 Major depressive disorder, single episode, mild; K51.90 Ulcerative colitis, unspecified, without complications; E78.5 Hyperlipidemia, unspecified
CPT/HCPCS: 99214; G2211

== ENCOUNTER 2024-03-03 12:59 | Outpatient (AMB) | payer OTHER, SELFPAY ==
--- NOTE | 2024-03-03 13:00 | A.OFFVIS_ITS ---
Vital Signs 03/03/24 13:02 Height 5 ft 7 in Weight 200 lb 9.93 oz BMI 31.4 BP 128/71 Blood Pressure Location Lt brachial Position Sitting Pulse 65 Intake Visit Reasons: 6 mnth follow up Intake Note: Kali presents in the office as a 6 month follow up. CC: He states that he has a lot of medications and he states that he does not need refills right now. He is feeling good and medication for constipation he takes when he needs it - he has been regular with his bowels. Allergies Penicillins [PENICILLINS] Allergy (Unknown, Verified 03/03/24 13:04) ANAPHYLAXIS HPI HPI 6 mnth follow up: Details: Assessment & Plan (1) Chronic idiopathic constipation: Code(s): K59.04 - Chronic idiopathic constipation (2) GERD (gastroesophageal reflux disease): Code(s): K21.9 - Gastro-esophageal reflux disease without esophagitis Qualifiers: Esophagitis presence: without esophagitis Qualified Code(s): K21.9 - Gastro-esophageal reflux disease without esophagitis (3) GUZMAN (nonalcoholic steatohepatitis): Comment: BASELINE LABS: 10/2018 Hep B immune, not to Hep A or C, HIV negative, autoimmune work up neg, AFP 2.9, Ferritin 532, GGT 66. AST/ALT 62/151 Current Laboratory Tests Laboratory Tests 06/04/23 10:24 Total Bilirubin 0.8 AST 41 H ALT 81 H Alkaline Phosphatase 75 ULTRASOUND OF THE ABDOMEN 08/14/22 IMPRESSION: There is generalized increase in hepatic echotexture, consistent with fatty infiltration or hepatocellular disease. Characteristic pericholecystic sparing favors fatty infiltration. Provided history of GUZMAN noted. No focal hepatic mass or intrahepatic biliary dilatation is seen. ? Code(s): K75.81 - Nonalcoholic steatohepatitis (GUZMAN) (4) Ulcerative colitis: Code(s): K51.90 - Ulcerative colitis, unspecified, without complications Plan [place] #KAITLIN James He feels well now and he feels that the bentyl was helpful with his abd pain. Someone told him to stop his PPI 2 weeks prior to his EGD and he really suffered!, This also caused him sinus problems. Apparently, he was RX'd carafate in the interim. (Procedure was [place] and there appears that there was a LOT that happened not made aware to me). Given his erosive gastritis, he likely should not d/c any PPI in the future. He has more carafate at home, but he stopped it after 7-8 days. I would like him to complete the carafate 20cc q noon to avoid blocking another medications. He has not suffered any CIC wtih this. HIS CURRENT GI REGIMEN CONSISTS OF BISACODYL, Dexilant, dicyclomine, mesalamine, simethicone, sucralfate. ROV 3 mos. Next appointment get repeat ultrasound and testing to monitor GUZMAN Medications: Changed From sucralfate 10 mL PO QIDACHS 1,000 mL 0RF To sucralfate 20 mL PO QNOON 1,000 mL 0RF Refilled simethicone (Gas Relief Extra Strength) 125 mg PO BID-QID 120 caps 6RF R14.0 - Abdominal distension (gaseous) mesalamine 2.4 grams (2 x 1.2 gram) PO DAILY 180 tabs 6RF K51.90 - Ulcerative colitis, unspecified, without complications dexlansoprazole 60 mg PO DAILY 30 caps 6RF K21.9 - Gastro-esophageal reflux disease without esophagitis bisacodyl 10 mg (2 x 5 mg) PO BEDTIME 60 tabs 6RF K59.04 - Chronic idiopathic constipation Laboratory Tests 11/07/23 Unknown Total Bilirubin 0.8 AST 21 ALT 44 H Alkaline Phosphatase 93 TODAY'S VISIT [facility] #[facility] He is doing well on his current regimen and is having no CIC. He continues on his Dexilant , dicyclomine, mesalamine, and simethicone. HE is having a recur rent problems with muscular pain in the low gluteals/hamstring tendons. At times this is worsened with needing to move his bowels. 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 He also is bothered that his large incisional hernia that is growing despite losing weight. It is possible that the lack of core muscle control is c/t back or hamstring problems. He is requesting a referral to again see Dr. Talbert regarding this - he saw him in 2019 and likely this was shelved r/t COVID. US ordered for GUZMAN monitoring. ROV 6 mos. PFSH Medical History (Updated 03/03/24 @ 13:59 by BRITTANI Wilson) Hospital discharge follow-up COVID-19 Type 2 diabetes mellitus Hyperlipidemia LDL goal <70 Upper abdominal pain History of smoking at least 1 pack per day for at least 30 years Balanitis Screening PSA (prostate specific antigen) Abdominal wall hernia Physical exam Elevated fasting glucose Personal history of nicotine dependence Pain in both feet Neck pain Lumbar pain Impaired glucose tolerance Abdominal bloating Obesity (BMI 30-39.9) Abdominal cramping History of COVID-19 Insomnia COPD (chronic obstructive pulmonary disease) Allergic rhinitis Ulcerative colitis Surgical History History of incisional hernia repair History of cervical spinal surgery History of colonoscopy History of appendectomy History of esophagogastroduodenoscopy (EGD) Family History Father Diabetes HTN (hypertension) Heart attack Mother Skin cancer HTN (hypertension) Diabetes Paternal Aunt Heart attack Sister Skin cancer Social History Household Members: Spouse Housing: Apartment Alcohol intake: never Patient Tobacco Use Status: Former Tobacco user Tobacco use type: Cigarette Years Smoked: (former smoker - onset 15yo, 1ppd x 36yrs, 35pyh, quit 2011) e-Cigarette/Vaping Use: Never Used Second Hand Smoke Exposure: No Substance Use Type: Marijuana service: No Current occupational status: retired Cognitive needs: No Hearing needs: No Vision needs: No Review of Systems Const Denies fatigue, Denies fever(s), Denies night sweats, Denies poor appetite and Denies weight loss Eyes Reports requires corrective lenses ENT Reports Normal hearing present, Denies dental pain, Denies dysphagia, Denies hearing loss, Denies mouth pain, Denies odynophagia, Denies throat swelling, Denies tongue swelling and Reports other (Dentition adequate) GI Details: Denies abdominal pain, Denies melena, Denies bloating, Denies hematochezia, Denies constipation, Denies GI cramping, Denies dysphagia, Denies excessive flatus, Denies early satiety, Denies heartburn, Denies diarrhea, Denies nausea, Denies odynophagia, Denies vomiting and Denies hematemesis Skin/Breast Denies pruritus, Denies lesions, Denies rash and Denies jaundice Neuro Reports Normal hearing present and Denies Abnormal speech present Endo Denies fatigue Aller/Immun Denies throat swelling and Denies tongue swelling Physical Exam Vital Signs: Last Vital Signs Pulse 65 03/03/24 13:02 BP 128/71 03/03/24 13:02 BMI result Body Mass Index 31.4 Const General: cooperative, no acute distress, well developed and well groomed Nutritional Appearance: well nourished, obese and overweight Orientation/consciousness: oriented to person, oriented to place and oriented to time Limitations: No language barrier, ambulation with cane, ambulation with walker and wheelchair HEENT Head: Yes normocephalic and Yes atraumatic Eyes General: appearance normal, both eyes and all related structures Pupils: Equal, round and reactive pupils present Neck Neck: Yes normal visual inspection and Yes no lymphadenopathy Thyroid: Thyroid normal Resp Effort & Inspection: normal respiratory effort and able to speak in complete sentences Auscultation: clear to auscultation bilaterally Cardio Rate: regular rate Rhythm: regular rhythm Heart sounds: Normal, physiologic split S2 sound present Peripheral pulses: radial pulses present and posterior tibial pulses present GI Inspection: No distended, Yes Abdominal panniculus present and Yes obesity Palpation (GI): Soft to palpation, nontender, no guarding, not rigid, No hepatosplenomegaly present and Hernia present ventral and other (incisional to left of midline) Percussion: Yes normal to percussion Auscultation: normal bowel sounds Rectal Exam - Male: Yes deferred Back/Spine/Pelvis Pelvis: buttock tenderness bilaterally (Upper hamstring attachment area with very tight hamstrings bilaterally) Skin General skin exam: no rashes or lesions noted, turgor normal, skin not dry, no jaundice, No spider nevi and no striae Rashes: no rashes Nails: normal Neuro General: oriented to person, oriented to place and oriented to time Cranial nerves: Yes Equal, round and reactive pupils present and Yes Normal hearing present Speech: No Abnormal speech present Extrem General: Yes normal to inspection, No clubbing, No cyanosis and No edema Psych Appearance: grossly normal and well kempt Mental Status: mental status grossly normal Speech and movement: Normal speech and movement present Affect: normal affect Attitude: cooperative Thought process: Normal thought process present and not confabulating Thought content: Normal thought content present Insight: Limited insight present (Psych) Judgement: Limited judgement present (Psych) Assessment & Plan Assessment & Plan (1) Chronic idiopathic constipation: Code(s): K59.04 - Chronic idiopathic constipation Category: Medical (2) GERD (gastroesophageal reflux disease): Code(s): K21.9 - Gastro-esophageal reflux disease without esophagitis Category: Medical Qualifiers: Esophagitis presence: without esophagitis Qualified Code(s): K21.9 - Gastro-esophageal reflux disease without esophagitis (3) GUZMAN (nonalcoholic steatohepatitis): Comment: BASELINE LABS: 10/2018 Hep B immune, not to Hep A or C, HIV negative, autoimmune work up neg, AFP 2.9, Ferritin 532, GGT 66. AST/ALT 62/151 Current Laboratory Tests 11/07/23 Unknown Total Bilirubin 0.8 AST 21 ALT 44 H Alkaline Phosphatase 93 ULTRASOUND OF THE ABDOMEN 08/14/22 IMPRESSION: There is generalized increase in hepatic echotexture, consistent with fatty infiltration or hepatocellular disease. Characteristic pericholecystic sparing favors fatty infiltration. Provided history of GUZMAN noted. No focal hepatic mass or intrahepatic biliary dilatation is seen. ? Code(s): K75.81 - Nonalcoholic steatohepatitis (GUZMAN) Category: Medical (4) Incisional hernia: Code(s): K43.2 - Incisional hernia without obstruction or gangrene Category: Medical Plan [facility] #[facility] [place] He is doing well on his current regimen and is having no CIC. He continues on his Dexilant , dicyclomine, mesalamine, and simethicone. HE is having a recurrent problems with muscular pain in the low gluteals/hamstring tendons. At times this is worsened with needing to move his bowels. 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 He also is bothered that his large incisional hernia that is growing despite losing weight. It is possible that the lack of core muscle control is c/t back or hamstring problems. He is requesting a referral to again see Dr. Talbert regarding this - he saw him in 2019 and likely this was shelved r/t COVID. US ordered for GUZMAN monitoring. ROV 6 mos. Orders: Orders US abdomen complete Today K43.2 - Incisional hernia without obstruction or gangrene, K75.81 - Nonalcoholic steatohepatitis (GUZMAN) Referrals General Surgery Referral K43.2 - Incisional hernia without obstruction or gangrene Coding Level of Care Code Est Pt Level 4 (49538) Diagnoses Chronic idiopathic constipation K59.04 Gastroesophageal reflux disease without esophagitis K21.9 Esophagitis presence: without esophagitis GUZMAN (nonalcoholic steatohepatitis) K75.81 Incisional hernia K43.2 Time Spent (min) 34
[2024-03-03 13:02] VITALS: BP 128/71; PULSE 65; BMI 31.4
== END 2024-03-03 14:04 | disposition home or self-care (01) ==
PROVIDERS: PCP Internal Medicine; Visit Provider Nurse Practitioner
DX: K59.04 Chronic idiopathic constipation (principal); K21.9 Gastro-esophageal reflux disease without esophagitis; K75.81 Nonalcoholic steatohepatitis (NASH); K43.2 Incisional hernia without obstruction or gangrene
CPT/HCPCS: 99214

== ENCOUNTER → 2024-03-03 12:59 | Outpatient (BNVA) | payer OTHER, SELFPAY | PROVIDERS: PCP Internal Medicine; Visit Provider Nurse Practitioner | DX: K59.04 Chronic idiopathic constipation (principal); K21.9 Gastro-esophageal reflux disease without esophagitis; K75.81 Nonalcoholic steatohepatitis (NASH); K43.2 Incisional hernia without obstruction or gangrene | CPT/HCPCS: 99212 ==

== ENCOUNTER 2024-03-19 08:17 | Outpatient (REF) | payer OTHER, SELFPAY ==
--- NOTE | ~2024-03-19 | US_ITS ---
EXAMINATION: US ABDOMEN COMPLETE CLINICAL INFORMATION: Nonalcoholic steatohepatitis. COMPARISON: Limited abdominal ultrasound 04/29/2023. Ultrasound abdomen complete 04/09/2022. CT abdomen 04/25/2023. TECHNIQUE: Real-time imaging of the abdominal viscera. FINDINGS: PANCREAS: The visualized pancreas appears unremarkable but the pancreatic tail is obscured by bowel gas. ABDOMINAL AORTA: Much of the aorta could not be seen secondary to a large midline scar. Proximally it appeared normal. INFERIOR VENA CAVA: Visualized portions are normal. LIVER: The liver is normal in size. The liver contour is normal. There is diffuse increased liver parenchymal echogenicity, consistent with hepatic steatosis. No focal hepatic lesion. There is no intrahepatic biliary duct dilatation seen. GALLBLADDER: Normal. The gallbladder is physiologically distended without evidence of stones, sludge, polyps, wall thickening or pericholecystic fluid. COMMON BILE DUCT: Normal in caliber measuring 0.3 cm in diameter. RIGHT KIDNEY: Normal. No hydronephrosis. No renal calculi or focal parenchymal lesions. The kidney measures 11.0 cm in maximum dimension. LEFT KIDNEY: Normal. No hydronephrosis. No renal calculi or focal parenchymal lesions. The kidney measures 11.0 cm in maximum dimension. SPLEEN: The spleen is enlarged measuring 14.1 cm in maximum dimension. FREE FLUID: None. US/US abdomen complete IMPRESSION: 1. Hepatic steatosis. 2. Splenomegaly. Electronically signed by: Mariano Mcgarry MD 03/24/2024 05:05 PM EDT
[2024-03-19 11:35] LABS: Glucose Fasting 125 mg/dL (60-99)
== END 2024-03-19 08:18 | disposition home or self-care (01) ==
LOC: HO.US 08:17
PROVIDERS: Absent Provider Urology; PCP Internal Medicine; Visit Provider Nurse Practitioner
DX: K75.81 Nonalcoholic steatohepatitis (NASH) (principal); K43.2 Incisional hernia without obstruction or gangrene; E11.9 Type 2 diabetes mellitus without complications; N52.9 Male erectile dysfunction, unspecified
CPT/HCPCS: 36415; 76700; 82947

== ENCOUNTER 2024-03-22 14:23 | Outpatient (AMB) | payer OTHER, SELFPAY ==
--- NOTE | 2024-03-22 14:24 | A.OFFVIS_ITS ---
Vital Signs 03/22/24 14:43 Height 5 ft 7 in Weight 201 lb BMI 31.5 BP 118/70 Blood Pressure Location Rt brachial Position Sitting Pulse 62 Intake Visit Reasons: Incisional hernia without obstruction or gangrene Intake Note: This patient presents for Incisional hernia without obstruction or gangrene. Pt c/o; reports bulge, reports pain and discomfort, reports he had two episode of hard stool and then changes into watery stool. 03/19/2024: Abd US Watch Crystal Cutter Required: Yes Watch Crystal Cutter Language: Label Drier Services: Watch Crystal Cutter Present Watch Crystal Cutter Name: Zara Information Interpreted: non-clinical & clinical Accompanied by: Self / Same As Patient Allergies Penicillins [PENICILLINS] Allergy (Unknown, Verified 03/03/24 13:04) ANAPHYLAXIS Medication List - Last Reconciled 03/22/24 by Joey Talbert MD albuterol sulfate 2.5 mg inhalation Q6H PRN atorvastatin 20 mg PO BEDTIME 90 days [bath mat As directed] bisacodyl 10 mg (2 x 5 mg) PO BEDTIME blood sugar diagnostic ([employer] Ultra Test strips) Use 1 test strip three times a day blood-glucose meter ([employer] Ultra2 Meter) As directed bupropion HCl XL 150 mg PO DAILY [id number]-dyca 50-300-40 mg (Fioricet) 1 cap PO Q4-6H PRN clonazepam 1 mg PO 1 tab in pm and 1/2 tab Qam; clonazepam mg PO clotrimazole-betamethasone 1-0.05 % 1 appl topical BID cyclobenzaprine 10 mg PO TID PRN cyclosporine 0.05% 1 drp ophthalmic (eye) BID dexlansoprazole 60 mg PO DAILY diclofenac sodium 3% 1 appl topical BID PRN 30 days dicyclomine 20 mg PO BID emollient combination no.32 (EpiCeram topical emulsion, extended release) topical empagliflozin (Jardiance) 10 mg PO DAILY 90 days escitalopram oxalate (Lexapro) 10 mg PO DAILY hydrocortisone 2.5% (Proctosol HC) 1 appl PA BID Incruse Ellipta 62.5 mcg/actuation (umeclidinium) 1 inh PO DAILY NS ketoconazole 2% appl topical DAILY PRN lancets ([employer] UltraSoft 2 Lancet) Use 1 lancet three times per day day lancets (Third Chicken Safety Lancet) As directed 3 times per day mesalamine 2.4 grams (2 x 1.2 gram) PO DAILY metformin 500 mg PO BID montelukast 10 mg PO DAILY [id number] 153-14-075-300 mcg (Centrum Silver Men) 1 tab PO DAILY oxybutynin chloride ER 15 mg PO DAILY propranolol ER 80 mg PO BID rivaroxaban (Xarelto) 20 mg PO DAILY ropinirole 1 mg PO BEDTIME [shower head As directed] simethicone (Gas Relief Extra Strength) 125 mg PO BID-QID sucralfate 20 mL PO QNOON tadalafil (Cialis) 5 mg PO DAILY triamcinolone acetonide 0.1% 1 appl topical BID-TID Ventolin HFA 90 mcg/actuation (albuterol sulfate) 2 puffs PO QID PRN NS zolpidem 10 mg PO BEDTIME PRN HPI HPI Incisional hernia without obstruction or gangrene: Details: 63-year-old male referred for an incisional hernia. He had a laparotomy for a complicated diverticulitis in [place] in 2008. He has developed recurrent incisional hernias the area I had repaired 2 hernias in the epigastric area in 2019 He says that he had been doing well but seems to have noted hernias again along the laparotomy site. He denies significant pain. He has good oral intake. He feels well overall. REPLACED BY [facility] Medical History Type 2 diabetes mellitus Hyperlipidemia LDL goal <70 COPD (chronic obstructive pulmonary disease) Personal history of nicotine dependence Allergic rhinitis History of COVID-19 Ulcerative colitis OAB (overactive bladder) Obesity (BMI 30-39.9) Insomnia Abdominal wall hernia Surgical History History of incisional hernia repair History of cervical spinal surgery History of colonoscopy History of appendectomy History of esophagogastroduodenoscopy (EGD) Family History Father Diabetes HTN (hypertension) Heart attack Mother Skin cancer HTN (hypertension) Diabetes Paternal Aunt Heart attack Sister Skin cancer Social History Household Members: Spouse Housing: Apartment Alcohol intake: never Patient Tobacco Use Status: Former Tobacco user Tobacco use type: Cigarette Years Smoked: (former smoker - onset 15yo, 1ppd x 36yrs, 35pyh, quit 2011) e-Cigarette/Vaping Use: Never Used Second Hand Smoke Exposure: No Substance Use Type: Marijuana service: No Current occupational status: retired Cognitive needs: No Hearing needs: No Vision needs: No Review of Systems Const Denies chills and Denies fever(s) Card Denies chest pain, Denies dyspnea and Denies dyspnea on exertion Resp Denies cough, Denies dyspnea and Denies dyspnea on exertion GI Denies hematochezia and Denies change in bowel habits Denies hematuria and Denies difficulty urinating Musc Denies back pain and Denies limited range of motion Neuro Denies focal weakness and Denies convulsions Psych Denies depression and Denies mood swings Physical Exam Vital Signs: Last Vital Signs Pulse 62 03/22/24 14:43 BP 118/70 03/22/24 14:43 BMI result Body Mass Index 31.5 Const General: comfortable and no acute distress Orientation/consciousness: patient oriented x3 Neck Neck: Yes no lymphadenopathy Resp Auscultation: clear to auscultation bilaterally Cardio Rhythm: regular rhythm GI Other: He has bulging along the entire old laparotomy site. This may be diastasis or current hernias. Palpation (GI): Soft to palpation, nontender and no guarding Neuro General: patient oriented x3 Assessment & Plan Assessment & Plan (1) Incisional hernia: Code(s): K43.2 - Incisional hernia without obstruction or gangrene Category: Medical Plan: He has had multiple surgeries for repair of incisional hernias after a long laparotomy incision in 2008. He seems to have multiple hernias along the laparotomy incision or diastasis.. I am going to send him for a CT scan. I explained to him the this plan and he seems to understand. I will see him in the office after her CT scan to discuss the findings. Coding Level of Care Code New Pt Level 3 (23090) Diagnoses Incisional hernia K43.2
[2024-03-22 14:43] VITALS: BP 118/70; PULSE 62; BMI 31.5
== END 2024-03-22 14:54 | disposition home or self-care (01) ==
PROVIDERS: PCP Internal Medicine; Visit Provider Surgery
DX: K43.2 Incisional hernia without obstruction or gangrene (principal)
CPT/HCPCS: 99203

== ENCOUNTER → 2024-03-22 14:23 | Outpatient (BNVA) | payer OTHER, SELFPAY | PROVIDERS: PCP Internal Medicine; Visit Provider Surgery | DX: K43.2 Incisional hernia without obstruction or gangrene (principal) | CPT/HCPCS: 99202 ==

== ENCOUNTER 2024-03-25 09:14 | Outpatient (REF) | payer OTHER, SELFPAY ==
[2024-03-25 10:03] LABS: Estimated Average Glucose 134 mg/dL; Hemoglobin A1c % 6.3 % (<6.0)
[2024-03-25 10:38] LABS: Alanine Aminotransferase 35 U/L (0-40); Albumin Level 4.5 g/dL (3.5-5.0); Alkaline Phosphatase 85 U/L (39-117); Anion Gap 13 (12-20); Aspartate Amino Transferase 23 U/L (5-37); Blood Urea Nitrogen 14 mg/dL (9-16); Calcium 9.9 mg/dL (8.4-10.2); Carbon Dioxide 30 mmol/L (22-29); Chloride 103 mmol/L (96-108); Cholesterol 111 mg/dL (<200); Estimated Glomerular Filt Rate > 60; Glucose Fasting 142 mg/dL (60-99); HDL Cholesterol 34 mg/dL (>40); LDL Cholesterol Calculated 60 mg/dL (<100); Potassium 4.3 mmol/L (3.3-5.1); Sodium 142 mmol/L (135-145); Triglycerides 85 mg/dL (<150)
[2024-03-25 10:54] LABS: Vitamin D 25-OH Total 44.3 ng/mL (>30)
[2024-03-25 11:39] LABS: Creatinine Urine 84.08 mg/dL; Microalbum/Creatinine Ratio Ur 9.5 ug/mg cr (<30)
== END 2024-03-25 09:15 | disposition home or self-care (01) ==
LOC: HO.LAB 09:14
PROVIDERS: PCP Internal Medicine; Visit Provider Physician Assistant
DX: R51.9 Headache, unspecified (principal); E55.9 Vitamin D deficiency, unspecified; E11.9 Type 2 diabetes mellitus without complications; E78.5 Hyperlipidemia, unspecified; E11.59 Type 2 diabetes mellitus with other circulatory complications
CPT/HCPCS: 36415; 80053; 80061; 82043; 82306; 82570; 83036

== ENCOUNTER 2024-03-26 10:59 | Outpatient (AMB) | payer OTHER, SELFPAY ==
[2024-03-26 11:05] VITALS: BP 98/62; PULSE 67; BMI 31.7
--- NOTE | 2024-03-26 11:05 | A.OFFVIS_ITS ---
Vital Signs 03/26/24 11:05 Height 5 ft 7 in Weight 202 lb 2.622 oz BMI 31.7 BP 98/62 Blood Pressure Location Lt brachial Position Sitting Pulse 67 Pulse Source Pulse Oximeter Intake Visit Reasons: Follow-up DMT2 Intake Note: Patient presents today for D2MT follow up visit. Last Diabetic Eye exam: 03/2023 Last Podiatry Visit: 11/2023 Random Glucose: 117 mg/dl HgA1c: 6.9% Production Hardener Required: Yes Production Hardener Language: Marketing Administrative Assistant Services: Production Hardener Present Production Hardener Name: Jean Claude Information Interpreted: non-clinical & clinical Accompanied by: Self / Same As Patient Allergies Penicillins [PENICILLINS] Allergy (Unknown, Verified 03/26/24 11:11) ANAPHYLAXIS Medication List - Last Reconciled 03/26/24 by Asya Loo PA-C albuterol sulfate 2.5 mg inhalation Q6H PRN atorvastatin 20 mg PO BEDTIME 90 days [bath mat As directed] bisacodyl 10 mg (2 x 5 mg) PO BEDTIME blood sugar diagnostic (Ravti Ultra Test strips) Use 1 test strip three times a day blood-glucose meter (Ravti Ultra2 Meter) As directed bupropion HCl XL 150 mg PO DAILY lxaxwfvosi-ekufevbeqxhuz-ojge 50-300-40 mg (Fioricet) 1 cap PO Q4-6H PRN clonazepam 1 mg PO 1 tab in pm and 1/2 tab Qam; clonazepam mg PO clotrimazole-betamethasone 1-0.05 % 1 appl topical BID cyclobenzaprine 10 mg PO TID PRN cyclosporine 0.05% 1 drp ophthalmic (eye) BID dexlansoprazole 60 mg PO DAILY diclofenac sodium 3% 1 appl topical BID PRN 30 days dicyclomine 20 mg PO BID emollient combination no.32 (EpiCeram topical emulsion, extended release) topical empagliflozin (Jardiance) 10 mg PO DAILY 90 days escitalopram oxalate (Lexapro) 10 mg PO DAILY hydrocortisone 2.5% (Proctosol HC) 1 appl WI BID Incruse Ellipta 62.5 mcg/actuation (umeclidinium) 1 inh PO DAILY NS ketoconazole 2% appl topical DAILY PRN lancets (Ravti UltraSoft 2 Lancet) Use 1 lancet three times per day day lancets ([facility] Revolution Safety Lancet) As directed 3 times per day mesalamine 2.4 grams (2 x 1.2 gram) PO DAILY metformin 500 mg PO BID montelukast 10 mg PO DAILY iz-buv-jswwb-[id number]-fldxmkn-bwpyfn [id number] mcg (Centrsong Lu) 1 tab PO DAILY oxybutynin chloride ER 15 mg PO DAILY propranolol ER 80 mg PO BID rivaroxaban (Xarelto) 20 mg PO DAILY ropinirole 1 mg PO BEDTIME [shower head As directed] simethicone (Gas Relief Extra Strength) 125 mg PO BID-QID sucralfate 20 mL PO QNOON tadalafil (Cialis) 5 mg PO DAILY triamcinolone acetonide 0.1% 1 appl topical BID-TID Ventolin HFA 90 mcg/actuation (albuterol sulfate) 2 puffs PO QID PRN NS zolpidem 10 mg PO BEDTIME PRN HPI HPI Follow-up DMT2: Details: Patient is a 63-year-old male with a significant past medical history of type 2 diabetes, hyperlipidemia, fatty liver, erectile dysfunction, anxiety and depression presenting today for consultation regarding his diabetes. Production Hardener: Josselin [id number] Endo: He was diagnosed with diabetes in 2022. His last A1c was 6.3. He is currently treated with Jardiance 10 mg and metformin 500 mg daily. He has been following a healthcare administrative assistant which he finds helpful modifications. Follows with Podiatry. Denies any peripheral neuropathy. Follows with ophthalmology and denies any retinopathy. He denies any hypo or hyperglycemic events. He states the highest reading he has had was 159 after he ate food he states he shouldn't have. His lowest reading he has had was 92. He did recently hit his left great toenail on a machine and it split the toenail 2 weeks ago. He states part of the toenail did lift off. He has been applying a bandage. . He is is seeing podiatry in 1 week. He is not on an COLT-inhibitor/Arb. He is on atorvastatin 20 mg. Cholesterol listed below, LDL 62. No myalgias. CV: Blood pressure today in the office is 98/72. He denies any chest pain, shortness of breath or palpitations. [facility] Medical History Type 2 diabetes mellitus Hyperlipidemia LDL goal <70 COPD (chronic obstructive pulmonary disease) Personal history of nicotine dependence Allergic rhinitis History of COVID-19 Ulcerative colitis OAB (overactive bladder) Obesity (BMI 30-39.9) Insomnia Abdominal wall hernia Surgical History History of incisional hernia repair History of cervical spinal surgery History of colonoscopy History of appendectomy History of esophagogastroduodenoscopy (EGD) Family History Father Diabetes HTN (hypertension) Heart attack Mother Skin cancer HTN (hypertension) Diabetes Paternal Aunt Heart attack Sister Skin cancer Social History Household Members: Spouse Housing: Apartment Alcohol intake: never Patient Tobacco Use Status: Former Tobacco user Tobacco use type: Cigarette Years Smoked: (former smoker - onset 15yo, 1ppd x 36yrs, 35pyh, quit 2011) e-Cigarette/Vaping Use: Never Used Second Hand Smoke Exposure: No Substance Use Type: Marijuana service: No Current occupational status: retired Cognitive needs: No Hearing needs: No Vision needs: No Physical Exam Vital Signs: Last Vital Signs Pulse 67 03/26/24 11:05 BP 98/62 03/26/24 11:05 BMI result Body Mass Index 31.7 Const Orientation/consciousness: patient oriented x3 Neck Neck: Yes no lymphadenopathy Thyroid: Thyroid normal Carotids: no bruits Resp Auscultation: clear to auscultation bilaterally Cardio Rate: regular rate Rhythm: regular rhythm Heart sounds: S1 normal heart sound present and S2 normal heart sound present Peripheral pulses: dorsalis pedis present Neuro General: patient oriented x3, gait normal and no focal motor deficits Extrem Other: Monofilament sensation intact bilaterally. Vibratory sensation intact bilaterally. Skin intact. The left great toenail is split at the distal aspect and the lateral aspect is slightly lifted. No drainage. General: Yes normal to inspection Results AMB Hemoglobin A1c AMB Hemoglobin A1c 6.9 % Last Edit by GEORGETTE Vera on 03/26/24 11:25 Results Reviewed Results Reviewed: Laboratory Last Values Glucose (Clinic) 117 mg/dL (60-115) H 03/26/24 11:13 Laboratory Tests 01/28/23 09/17/23 03/25/24 17:14 11:03 09:33 Sodium 142 Potassium 4.3 Chloride 103 Carbon Dioxide 30 H Anion Gap 13 BUN 14 Creatinine 1.11 Estimated GFR > 60 Fasting Glucose 142 H Estimat Average Glucose 134 Hgb A1c (Clinic) 7.2 H 6.1 H Hemoglobin A1c % 6.3 H AST 23 ALT 35 Triglycerides 85 Cholesterol 111 LDL Cholesterol, Calc 60 HDL Cholesterol 34 L Urine Creatinine Urine Microalbumin Microalb/Creat Ratio 03/25/24 10:36 Sodium Potassium Chloride Carbon Dioxide Anion Gap BUN Creatinine Estimated GFR Fasting Glucose Estimat Average Glucose Hgb A1c (Clinic) Hemoglobin A1c % AST ALT Triglycerides Cholesterol LDL Cholesterol, Calc HDL Cholesterol Urine Creatinine 84.08 Urine Microalbumin 8.0 Microalb/Creat Ratio 9.5 Assessment & Plan Assessment & Plan (1) Controlled type 2 diabetes mellitus: Code(s): E11.9 - Type 2 diabetes mellitus without complications Category: Medical Qualifiers: Diabetes mellitus intermediate accountant insulin use: without intermediate accountant use Diabetes mellitus complication status: with unspecified complications Qualified Code(s): E11.8 - Type 2 diabetes mellitus with unspecified complications Plan: continue current treatment plan. He will follow up in 3 months or sooner prn. pt understands and agrees with the plan. (2) Avulsion of toenail of left foot: Code(s): S91.209A - Unspecified open wound of unspecified toe(s) with damage to nail, initial encounter Category: Medical Plan: no signs of infection. has appointment with podiatry next week. Advised to be careful to not further injured the toenail. He is going to monitor this closely. Orders: Orders Hemoglobin A1c Today E11.8 - Type 2 diabetes mellitus with unspecified complications AMB Hemoglobin A1c Today E11.59 - Type 2 diabetes mellitus with other circulatory complications, Z13.9 - Encounter for screening, unspecified Comprehensive [place]. Panel Fast Today E11.8 - Type 2 diabetes mellitus with unspecified complications Coding Level of Care Code Est Pt Level 4 (95367) Complex EM visit Add On G2211 Diagnoses Controlled type 2 diabetes mellitus with complication, without long-term current use of insulin E11.8 Diabetes mellitus intermediate accountant insulin use: without longterm use Diabetes mellitus complication status: with unspecified complications Avulsion of toenail of left foot S91.209A
[2024-03-26 11:18] LABS: Glucose, Whole Blood 117 mg/dL (60-115)
== END 2024-03-26 11:43 | disposition home or self-care (01) ==
PROVIDERS: PCP Internal Medicine; Visit Provider Physician Assistant
DX: E11.8 Type 2 diabetes mellitus with unspecified complications (principal); S91.209A Unspecified open wound of unspecified toe(s) with damage to nail, initial encounter; Z13.9 Encounter for screening, unspecified; E11.59 Type 2 diabetes mellitus with other circulatory complications

== ENCOUNTER → 2024-03-26 10:59 | Outpatient (BNVA) | payer OTHER, SELFPAY | PROVIDERS: PCP Internal Medicine; Visit Provider Physician Assistant | DX: E11.59 Type 2 diabetes mellitus with other circulatory complications (principal); S91.202D Unspecified open wound of left great toe with damage to nail, subsequent encounter | CPT/HCPCS: 82947; 83036; 99212 ==

== ENCOUNTER 2024-04-19 13:23 | Outpatient (AMB) | payer OTHER, SELFPAY ==
--- NOTE | 2024-04-19 13:48 | MHC.AMNUTRGE ---
VS Expanded 04/19/24 13:49 Height 5 ft 7 in Weight 201 lb 11.567 oz BMI 31.6 Intake Visit Reasons: T2DM Allergies Penicillins [PENICILLINS] Allergy (Unknown, Verified 03/26/24 11:11) ANAPHYLAXIS Nutrition Presentation Details: Pt presents for MNT f/u for T2DM Pt reports working on diet modifications. Pt reports challenges with finances - list of food pantries provided and [employer] infor for additional information Pt reports participating from the Mom's meals program physical activity daily life activities , BS Monitoring Most Recent Diabetes Results: Microalb/Creat Ratio 9.5 ug/mg cr (<30) 03/25/24 Cholesterol 111 mg/dL (<200) 03/25/24 HDL Cholesterol 34 mg/dL (>40) L 03/25/24 Triglycerides 85 mg/dL (<150) 03/25/24 Creatinine 1.11 mg/dL (0.5-1.4) 03/25/24 Blood Urea Nitrogen 14 mg/dL (9-16) 03/25/24 Sodium 142 mmol/L (135-145) 03/25/24 Potassium 4.3 mmol/L (3.3-5.1) 03/25/24 Chloride 103 mmol/L (96-108) 03/25/24 Carbon Dioxide 30 mmol/L (22-29) H 03/25/24 Calcium 9.9 mg/dL (8.4-10.2) 03/25/24 AST 23 U/L (5-37) 03/25/24 ALT 35 U/L (0-40) 03/25/24 Total Protein 7.0 g/dL (6.5-8.0) 03/25/24 Albumin 4.5 g/dL (3.5-5.0) 03/25/24 COUNTS INCLUDE 234 BEDS AT [facility] Medical History Type 2 diabetes mellitus Hyperlipidemia LDL goal <70 COPD (chronic obstructive pulmonary disease) Personal history of nicotine dependence Allergic rhinitis History of COVID-19 Ulcerative colitis OAB (overactive bladder) Obesity (BMI 30-39.9) Insomnia Abdominal wall hernia Surgical History History of incisional hernia repair History of cervical spinal surgery History of colonoscopy History of appendectomy History of esophagogastroduodenoscopy (EGD) Family History Father Diabetes HTN (hypertension) Heart attack Mother Skin cancer HTN (hypertension) Diabetes Paternal Aunt Heart attack Sister Skin cancer Social History Household Members: Spouse Housing: Apartment Alcohol intake: never Patient Tobacco Use Status: Former Tobacco user Tobacco use type: Cigarette Years Smoked: (former smoker - onset 15yo, 1ppd x 36yrs, 35pyh, quit 2011) e-Cigarette/Vaping Use: Never Used Second Hand Smoke Exposure: No Substance Use Type: Marijuana service: No Current occupational status: retired Cognitive needs: No Hearing needs: No Vision needs: No Assessment & Plan Assessment & Plan (1) Diabetes: Code(s): E11.9 - Type 2 diabetes mellitus without complications Category: Medical Qualifiers: Diabetes mellitus complication status: without complication Plan wt: 98 kg (97 kg 03/2023) (95 kg 05/2023), 94 kg (08/2023), 94 kg (11/2023), 92 kg ( 04/22) Est kcal needs as per MSJ: 2100 (40% carb, 30% protein/fat) Est fluid needs as per 25-30 ml/d: 2450 Est prot per day as per 1 g/kg bw: 98 Recommend fiber intake : 8-10 g per day and gradually increase to 25-28 g per day for women and 35-38 g for men or as tolerated Recommend sodium intake per day : less than 2000 mg Educated patient on: ( R = reviewed V = verbalizes understanding N/R = needs review N/A = not applicable Food sources of carbohydrate, adequate serving sizes and its role in various health conditions: R ,V Differences between complex carbohydrates a simple carbohydrates, role of fiber in diet: R Differences between types of fats and role in diet (mono on saturated fat fatty acids, saturated fatty acids, trans fats): R Food sources of sodium in salt and healthy modifications for heart health in kidney health: R , V Healthy plate method concept: R, V Physical activity: Benefits a precaution: R , V Hypoglycemia protocol (rule of 15): R , V Dietary prevention of Hyperglycemia: R , V Patient Instructions: See list of food pantries and additional services in [employer] Keep hydrated by having water with meals/snacks Maintain physically active 10m inutes at least (bike) unless otherwise specified by your doctor Coding Level of Care Code Nutr Indiv Subseq (74996) Diagnoses Diabetes E11.9 Diabetes mellitus complication status: without complication Time Spent (min) 30
[2024-04-19 13:49] VITALS: BMI 31.6
== END 2024-04-19 14:21 | disposition home or self-care (01) ==
PROVIDERS: PCP Internal Medicine; Visit Provider Dietitian, Registered
DX: E11.9 Type 2 diabetes mellitus without complications (principal)

== ENCOUNTER → 2024-04-19 13:23 | Outpatient (BNVA) | payer OTHER, SELFPAY | PROVIDERS: PCP Internal Medicine; Visit Provider Dietitian, Registered | DX: E11.9 Type 2 diabetes mellitus without complications (principal); E66.9 Obesity, unspecified; Z71.3 Dietary counseling and surveillance; Z68.31 Body mass index [BMI] 31.0-31.9, adult | CPT/HCPCS: 97803 ==

== ENCOUNTER 2024-05-04 13:37 | Outpatient (AMB) | payer OTHER, SELFPAY ==
--- NOTE | 2024-05-04 13:40 | MHC.OFFVIS ---
Vital Signs 05/04/24 13:44 Height 5 ft 7 in Weight 200 lb BMI 31.3 BP 110/60 Blood Pressure Location Rt brachial Position Sitting Pulse 79 Pulse Source Pulse Oximeter Pulse Oximetry (%) 96 Oxygen Delivery Method Room Air Intake Visit Reasons: COPD Cutting And Splicing Supervisor Required: No Field Installation Technician: Field Installation Technician offered & declined Accompanied by: Self / Same As Patient Allergies Penicillins [PENICILLINS] Allergy (Unknown, Verified 05/04/24 13:48) ANAPHYLAXIS Medication List - Last Reconciled 05/04/24 by Vianca Lyons MD albuterol sulfate 2.5 mg inhalation Q6H PRN atorvastatin 20 mg PO BEDTIME 90 days [bath mat As directed] bisacodyl 10 mg (2 x 5 mg) PO BEDTIME blood sugar diagnostic ([employer] Ultra Test strips) Use 1 test strip three times a day blood-glucose meter ([employer] Ultra2 Meter) As directed bupropion HCl XL 150 mg PO DAILY anxdiasolw-jvxgxrphmthes-ciuz 50-300-40 mg (Fioricet) 1 cap PO Q4-6H PRN clonazepam 1 mg PO 1 tab in pm and 1/2 tab Qam; clonazepam mg PO clotrimazole-betamethasone 1-0.05 % 1 appl topical BID cyclobenzaprine 10 mg PO TID PRN cyclosporine 0.05% 1 drp ophthalmic (eye) BID dexlansoprazole 60 mg PO DAILY diclofenac sodium 3% 1 appl topical BID PRN 30 days dicyclomine 20 mg PO BID emollient combination no.32 (EpiCeram topical emulsion, extended release) topical empagliflozin (Jardiance) 10 mg PO DAILY 90 days escitalopram oxalate (Lexapro) 10 mg PO DAILY hydrocortisone 2.5% (Proctosol HC) 1 appl [place] BID Incruse Ellipta 62.5 mcg/actuation (umeclidinium) 1 inh PO DAILY NS ketoconazole 2% appl topical DAILY PRN lancets ([employer] UltraSoft 2 Lancet) Use 1 lancet three times per day day lancets (citibuddiesuch Delica Safety Lancet) As directed 3 times per day mesalamine 2.4 grams (2 x 1.2 gram) PO DAILY metformin 500 mg PO BID montelukast 10 mg PO DAILY hp-jyf-hejsq-H3-hhpsoub-zqadvu 492-80-221-300 mcg (Centrum Silver Men) 1 tab PO DAILY oxybutynin chloride ER 15 mg PO DAILY propranolol ER 80 mg PO BID rivaroxaban (Xarelto) 20 mg PO DAILY ropinirole 1 mg PO BEDTIME [shower head As directed] simethicone (Gas Relief Extra Strength) 125 mg PO BID-QID sucralfate 20 mL PO QNOON tadalafil (Cialis) 5 mg PO DAILY triamcinolone acetonide 0.1% 1 appl topical BID-TID Ventolin HFA 90 mcg/actuation (albuterol sulfate) 2 puffs PO QID PRN NS zolpidem 10 mg PO BEDTIME PRN Do you need a note to return to daycare/school/sports/work: No HPI HPI COPD: Details: THIS 63 YEARS OLD VERY PLEASANT GENTLEMAN WITH HISTORY OF ALLERGIC RHINITIS, BRONCHIAL ASTHMA/COPD, IS HERE. FOR FOLLOW-UP AFTER 4 MONTHS HE HAS MULTIPLE CO MORBIDITIES INCLUDING CHRONIC ANXIETY AND MAJOR DEPRESSION. HE HAS PAST HISTORY OF SMOKING BUT QUIT MANY YEARS AGO. CLAIMS THAT HE IS DOING WELL EXCEPT FOR ONLY OCCASIONAL NEED TO USE THE RESCUE INHALER. HE DOES HAVE MILD ONGOING NASAL CONGESTION BUT NO REAL POSTNASAL DRIP OR SNEEZING. FROM PULMONARY POINT OF VIEW HE HAS BEEN DOING FAIRLY WELL. [facility] Medical History Type 2 diabetes mellitus Hyperlipidemia LDL goal <70 COPD (chronic obstructive pulmonary disease) Personal history of nicotine dependence Allergic rhinitis History of COVID-19 Ulcerative colitis OAB (overactive bladder) Obesity (BMI 30-39.9) Insomnia Abdominal wall hernia Surgical History History of incisional hernia repair History of cervical spinal surgery History of colonoscopy History of appendectomy History of esophagogastroduodenoscopy (EGD) Family History Father Diabetes HTN (hypertension) Heart attack Mother Skin cancer HTN (hypertension) Diabetes Paternal Aunt Heart attack Sister Skin cancer Social History Household Members: Spouse Housing: Apartment Alcohol intake: never Patient Tobacco Use Status: Former Tobacco user Tobacco use type: Cigarette Years Smoked: (former smoker - onset 15yo, 1ppd x 36yrs, 35pyh, quit 2011) e-Cigarette/Vaping Use: Never Used Second Hand Smoke Exposure: No Substance Use Type: Marijuana service: No Current occupational status: retired Cognitive needs: No Hearing needs: No Vision needs: No Review of Systems Const All systems reviewed & are unremarkable except as noted in HPI and below Eyes Reports no additional complaints ENT Reports nasal congestion and Reports nasal discharge Card Denies chest pain, Denies irregular heart rhythm and Denies leg edema Resp Reports as per HPI GI Reports heartburn (Being treated for GERD symptoms) Reports erectile dysfunction and Reports urinary incontinence Musc Reports no additional complaints Skin/Breast Reports system reviewed and no additional complaints, except as documented Neuro Reports no additional complaints Psych Reports anxiety and Reports depression Endo Reports no additional complaints Jamie/Lymph Reports no additional complaints Physical Exam Vital Signs: Last Vital Signs Pulse 79 05/04/24 13:44 BP 110/60 05/04/24 13:44 Pulse Ox 96 05/04/24 13:44 Oxygen Delivery Method Room Air 05/04/24 13:44 BMI result Body Mass Index 31.3 Const General: comfortable, no acute distress, alert and awake Orientation/consciousness: patient oriented x3 HEENT Head: Yes normal to inspection General nose exam: No nasal polyps present and No nasal discharge present Face and sinus: Yes sinuses nontender Mouth: oropharynx normal Throat: Yes posterior oropharynx normal Eyes General: appearance normal, both eyes and all related structures Neck Neck: Yes normal visual inspection, Yes no lymphadenopathy, Yes trachea midline and Yes no JVD Thyroid: Thyroid normal Chest Chest palpation & inspection: normal inspection of the chest, normal palpation of entire chest wall and no tenderness Resp Other: Percussion note resonant, breath sounds are slightly distant with prolonged expiratory phase, equal on both sides. No wheezes or rhonchi are heard today. Cardio Palpation: normal PMI Rate: regular rate Rhythm: regular rhythm Heart sounds: no gallops and no murmurs GI Palpation (GI): Soft to palpation, nontender, No hepatosplenomegaly present, no masses and Other GI palpation findings present (Abdomen moderately protuberant, due to surgical scar/ventral hernia ) Auscultation: normal bowel sounds Back/Spine/Pelvis Thoracic/Lumbar Spine: thoracic and lumbar spine normal to inspection Skin General skin exam: no rashes or lesions noted Neuro General: patient oriented x3 and no focal motor deficits Cranial nerves: Yes CN's II-XII intact bilaterally Extrem General: Yes normal to inspection, Yes no clubbing, cyanosis or edema and Yes no calf tenderness Psych Appearance: grossly normal and well kempt Speech and movement: Normal speech and movement present Assessment & Plan Assessment & Plan (1) COPD (chronic obstructive pulmonary disease): Comment: Moderate degree of chronic obstructive pulmonary disease, ., SEC TO PAST h/o SMOKING STABLE AT THIS TIME. But he is prone to get frequent upper respiratory infections. Code(s): J44.9 - Chronic obstructive pulmonary disease, unspecified Category: Medical Qualifiers: COPD type: emphysema Emphysema type: panlobular Qualified Code(s): J43.1 - Panlobular emphysema Plan: CONTINUE TO USE INCRUSE ELLIPTA 1 INHALATION DAILY ALBUTEROL HFA 2 PUFFS Q 4-6 HOURS ONLY P.R.N. (2) Personal history of nicotine dependence: Comment: (former smoker - onset 15yo, 1ppd x 36yrs, 35pyh, quit 2011) HE DOES SMOKE CANNABIS ONCE A DAY OFF AND ON . Code(s): Z87.891 - Personal history of nicotine dependence Category: Medical Plan: JUST DISCUSSED ABOUT SMOKING AND COMMENDED FOR NOT GOING BACK TO THIS HABIT. (3) Allergic rhinitis: Comment: Chronic, perineal, allergic type rhinitis, remains controlled. Currently has very little symptoms . Code(s): J30.9 - Allergic rhinitis, unspecified Category: Medical Plan: Use Flonase 2 spray each nostril daily and loratadine 10 mg once a day only p.r.n. Coding Level of Care Code Est Pt Level 3 (91652) Diagnoses Panlobular emphysema J43.1 COPD type: emphysema Emphysema type: panlobular Personal history of nicotine dependence Z87.891 Allergic rhinitis J30.9
[2024-05-04 13:44] VITALS: BP 110/60; PULSE 79; O2SAT 96; BMI 31.3
== END 2024-05-04 14:03 | disposition home or self-care (01) ==
LOC: HO.HPS 13:38
PROVIDERS: PCP Internal Medicine; Visit Provider Internal Medicine
DX: J43.1 Panlobular emphysema (principal); Z87.891 Personal history of nicotine dependence; J30.9 Allergic rhinitis, unspecified
CPT/HCPCS: 99213

== ENCOUNTER → 2024-05-04 13:37 | Outpatient (BNVA) | payer OTHER, SELFPAY | PROVIDERS: PCP Internal Medicine; Visit Provider Internal Medicine | DX: J43.1 Panlobular emphysema (principal); J30.9 Allergic rhinitis, unspecified; Z87.891 Personal history of nicotine dependence | CPT/HCPCS: 99212 ==

== ENCOUNTER 2024-05-18 16:16 | Outpatient (REF) | payer OTHER, SELFPAY | END 2024-05-18 16:17 | disposition home or self-care (01) | LOC: HO.CT 16:16 | PROVIDERS: PCP Physician Assistant; Referring Provider Surgery; Visit Provider Physician Assistant Medical | DX: Z12.2 Encounter for screening for malignant neoplasm of respiratory organs (principal); Z87.891 Personal history of nicotine dependence; K43.2 Incisional hernia without obstruction or gangrene | CPT/HCPCS: 71271; 74176 ==

== ENCOUNTER → 2024-05-18 16:18 | Outpatient (BNV) | payer OTHER, SELFPAY | PROVIDERS: PCP Physician Assistant; Referring Provider Surgery; Visit Provider Radiology Diagnostic Radiology | DX: K43.2 Incisional hernia without obstruction or gangrene (principal); Z87.891 Personal history of nicotine dependence | CPT/HCPCS: 71271; 74176 ==

== ENCOUNTER 2024-06-04 14:56 | Outpatient (AMB) | payer OTHER, SELFPAY ==
--- NOTE | 2024-06-04 14:59 | A.OFFVIS_ITS ---
Intake Visit Reasons: 6m follow up Intake Note: Patient presents today for a follow-up on PVR: Meds- Tadalafil & OXYBUTYNIN Allergies to Antibiotic- Penicillin Blood Thinner- None Assistant Corporate Secretary Required: No Accompanied by: Self / Same As Patient Allergies Penicillins [PENICILLINS] Allergy (Unknown, Verified 05/04/24 13:48) ANAPHYLAXIS HPI Comments Details: Kali is a pleasant Mauritanian-speaking male. He is a patient of Dr. Bartlett. He is seen for the following urologic conditions - erectile dysfunction - bladder instability overactive bladder - elevated PSA Review UA trace blood Glucose 3+ on Jardiance Still with bladder instability despite oxybutynin 15 mg Making a lot of urine at night Presumed secondary to Jardiance He will talk to job boss about this Trial Myrbetriq for bladder instability Erectile dysfunction in setting of type 2 diabetes Has been on Cialis 5 mg daily Previously used 20 mg on demand Bladder instability Oxybutynin 15 mg daily PSA 09/20 2.9, 11/20 T 451 Failed tolterodine PFSH Medical History Type 2 diabetes mellitus Hyperlipidemia LDL goal <70 COPD (chronic obstructive pulmonary disease) Personal history of nicotine dependence Allergic rhinitis History of COVID-19 Ulcerative colitis OAB (overactive bladder) Obesity (BMI 30-39.9) Insomnia Abdominal wall hernia Surgical History History of incisional hernia repair History of cervical spinal surgery History of colonoscopy History of appendectomy History of esophagogastroduodenoscopy (EGD) Family History Father Diabetes HTN (hypertension) Heart attack Mother Skin cancer HTN (hypertension) Diabetes Paternal Aunt Heart attack Sister Skin cancer Social History (Updated 05/04/24 @ 13:53 by Johana Mederos LPN) Household Members: Spouse Housing: Apartment Alcohol intake: never Patient Tobacco Use Status: Former Tobacco user Tobacco use type: Cigarette Years Smoked: (former smoker - onset 15yo, 1ppd x 36yrs, 35pyh, quit 2011) e-Cigarette/Vaping Use: Never Used Second Hand Smoke Exposure: No Substance Use Type: Marijuana service: No Current occupational status: retired Cognitive needs: No Hearing needs: No Vision needs: No Review of Systems Const Denies chills and Denies fever(s) Card Reports no additional complaints and Denies syncope Resp Denies cough GI Denies abdominal pain and Denies heartburn Reports as per HPI and Denies change in libido Neuro Denies syncope Psych Denies change in libido Endo Denies change in libido Physical Exam Const General: cooperative, healthy appearing, comfortable and no acute distress Orientation/consciousness: patient oriented x3 HEENT Face and sinus: Yes normal facial exam Mouth: moist mucous membranes Neck Neck: Yes normal visual inspection, Yes full ROM and Yes trachea midline Chest Chest palpation & inspection: normal inspection of the chest Resp Effort & Inspection: normal respiratory effort, able to speak in complete sentences and no respiratory distress GI Inspection: Yes normal to inspection Back/Spine/Pelvis Cervical Spine: normal cervical lordosis Thoracic/Lumbar Spine: thoracic and lumbar spine normal to inspection Skin General skin exam: no rashes or lesions noted Neuro General: patient oriented x3, gait normal, tone normal and moves all extremities Extrem General: Yes normal to inspection and Yes capillary refill normal Assessment & Plan Assessment & Plan (1) BPH w urinary obs/LUTS: Code(s): N40.1 - Benign prostatic hyperplasia with lower urinary tract symptoms; N13.8 - Other obstructive and reflux uropathy Category: Medical (2) OAB (overactive bladder): Code(s): N32.81 - Overactive bladder Category: Medical Plan Two month follow-up tele Trial Myrbetriq Orders: Orders AMB Urinalysis Automated Today Z13.9 - Encounter for screening, unspecified Medications: New mirabegron ER 25 mg PO DAILY 30 days 30 tabs 1RF N32.81 - Overactive bladder Patient Instructions: Imaging studies, laboratory and physical exam results were discussed and reviewed in detail. No major barriers to patient understanding were identified. An opportunity to ask questions regarding the treatment plan was provided. All questions were answered. The patient expressed understanding and agreement with the above treatment plan. The patient is aware they should contact our office by phone for worsening of their current condition or the appearance of new urologic symptoms. Compliance is encouraged with any medications and followup testing that is ordered. It is a privilege to participate in the urologic care of your patient. If you have any questions or concerns regarding treatment for the above conditions, or other urologic issues, please do not hesitate to contact me. The office telephone contact is [phone]. This note is constructed using voice recognition software. While every effort has been made to ensure accuracy electrocardiograph technician errors may have been included. Yours sincerely, Dr Jc Fitzpatrick MD, [facility] - Urology Providers of Expert, Compassionate Care for the Genitourinary System Coding Level of Care Code Est Pt Level 4 (33359) Diagnoses BPH w urinary obs/LUTS N40.1; N13.8 OAB (overactive bladder) N32.81
== END 2024-06-04 15:37 | disposition home or self-care (01) ==
PROVIDERS: PCP Internal Medicine; Visit Provider Urology
DX: N40.1 Benign prostatic hyperplasia with lower urinary tract symptoms (principal); N13.8 Other obstructive and reflux uropathy; N32.81 Overactive bladder; Z13.9 Encounter for screening, unspecified
CPT/HCPCS: 99214

== ENCOUNTER → 2024-06-04 14:56 | Outpatient (BNVA) | payer OTHER, SELFPAY | PROVIDERS: PCP Internal Medicine; Visit Provider Urology | DX: N40.1 Benign prostatic hyperplasia with lower urinary tract symptoms (principal); N13.8 Other obstructive and reflux uropathy; N32.81 Overactive bladder | CPT/HCPCS: 81003; 99212 ==

== ENCOUNTER 2024-06-14 13:33 | Outpatient (AMB) | payer OTHER, SELFPAY ==
--- NOTE | 2024-06-14 13:35 | A.OFFVIS_ITS ---
Vital Signs 06/14/24 13:39 Height 5 ft 7 in Weight 202 lb 13.204 oz BMI 31.8 BP 116/78 Blood Pressure Location Rt brachial Position Sitting Pulse 75 Pulse Source Pulse Oximeter Intake Visit Reasons: T2DM/Confirmed Intake Note: Patient presents today for a follow-up on Type 2 Diabetes Mellitus: Last Diabetic eye exam was on: DUE Last Podiatry exam was on: Does not see a Neurourologist Most recent HbA1c: 6.6%, 06/14/2024 Random Glucose- 149 mg/dL, Today Drafter Electronic Required: Yes Drafter Electronic Language: Decorating Instructor Name: GEORGETTE Johnson/SUMAYA MEREDITH Accompanied by: Self / Same As Patient Allergies Penicillins [PENICILLINS] Allergy (Unknown, Verified 06/14/24 13:36) ANAPHYLAXIS Medication List - Last Reconciled 06/14/24 by Asya Loo PA-C albuterol sulfate 2.5 mg inhalation Q6H PRN atorvastatin 20 mg PO BEDTIME 90 days [bath mat As directed] bisacodyl 10 mg (2 x 5 mg) PO BEDTIME blood sugar diagnostic (OneTouch Ultra Test strips) Use 1 test strip three times a day blood-glucose meter (One[employer] Ultra2 Meter) As directed bupropion HCl XL 150 mg PO DAILY twebmqczmn-pbgwfllucbjoq-lozv 50-300-40 mg (Fioricet) 1 cap PO Q4-6H PRN clonazepam 1 mg PO 1 tab in pm and 1/2 tab Qam; clotrimazole-betamethasone 1-0.05 % 1 appl topical BID cyclobenzaprine 10 mg PO TID PRN cyclosporine 0.05% 1 drp ophthalmic (eye) BID dexlansoprazole 60 mg PO DAILY diclofenac sodium 3% 1 appl topical BID PRN 30 days dicyclomine 20 mg PO BID dulaglutide (Trulicity) 0.75 mg (0.5 mL) subcut QWEEK emollient combination no.32 (EpiCeram topical emulsion, extended release) topica l escitalopram oxalate (Lexapro) 10 mg PO DAILY hydrocortisone 2.5% (Proctosol HC) 1 appl [place] BID Incruse Ellipta 62.5 mcg/actuation (umeclidinium) 1 inh PO DAILY NS ketoconazole 2% appl topical DAILY PRN lancets (OneTouch UltraSoft 2 Lancet) Use 1 lancet three times per day day lancets ([employer] Delica Safety Lancet) As directed 3 times per day mesalamine 2.4 grams (2 x 1.2 gram) PO DAILY metformin 500 mg PO BID mirabegron ER 25 mg PO DAILY 30 days montelukast 10 mg PO DAILY ru-iws-mxnga-P2-ylqaznl-whzrpv 667-38-136-300 mcg (Centrum Silver Men) 1 tab PO DAILY oxybutynin chloride ER 15 mg PO DAILY propranolol ER 80 mg PO BID rivaroxaban (Xarelto) 20 mg PO DAILY ropinirole 1 mg PO BEDTIME [shower head As directed] simethicone (Gas Relief Extra Strength) 125 mg PO BID-QID sucralfate 20 mL PO QNOON tadalafil (Cialis) 5 mg PO DAILY triamcinolone acetonide 0.1% 1 appl topical BID-TID Ventolin HFA 90 mcg/actuation (albuterol sulfate) 2 puffs PO QID PRN NS zolpidem 10 mg PO BEDTIME PRN HPI HPI T2DM/Confirmed: Details: Patient is a 63-year-old male with a significant past medical history of type 2 diabetes, hyperlipidemia, fatty liver, erectile dysfunction, anxiety and depression presenting today for consultation regarding his diabetes. Drafter Electronic: Mirtha Herron: He was diagnosed with diabetes in 2022. His last A1c was 6.3. He is currently treated with Jardiance 10 mg and metformin 500 mg daily. He has been following a grain inspector which he finds helpful modifications. He did forget to get labs prior to today's appointment. He is having increased urinary frequency with the jardiance. Follows with Podiatry. Denies any peripheral neuropathy. Follows with ophthalmology and denies any retinopathy. He denies any hypo or hyperglycemic events. He states the highest reading he has had was 159 after he ate food he states he shouldn't have. His lowest readi ng he has had was 92. He is not on an COLT-inhibitor/Arb. He is on atorvastatin 20 mg. Cholesterol listed below, LDL 62. No myalgias. CV: Blood pressure today in the office is 116/78. He denies any chest pain, shortness of breath or palpitations. [facility] Medical History Type 2 diabetes mellitus Hyperlipidemia LDL goal <70 COPD (chronic obstructive pulmonary disease) Personal history of nicotine dependence Allergic rhinitis History of COVID-19 Ulcerative colitis OAB (overactive bladder) Obesity (BMI 30-39.9) Insomnia Abdominal wall hernia Surgical History History of incisional hernia repair History of cervical spinal surgery History of colonoscopy History of appendectomy History of esophagogastroduodenoscopy (EGD) Family History Father Diabetes HTN (hypertension) Heart attack Mother Skin cancer HTN (hypertension) Diabetes Paternal Aunt Heart attack Sister Skin cancer Social History (Updated 05/04/24 @ 13:53 by Johana Mederos LPN) Household Members: Spouse Housing: Apartment Alcohol intake: never Patient Tobacco Use Status: Former Tobacco user Tobacco use type: Cigarette Years Smoked: (former smoker - onset 15yo, 1ppd x 36yrs, 35pyh, quit 2011) e-Cigarette/Vaping Use: Never Used Second Hand Smoke Exposure: No Substance Use Type: Marijuana service: No Current occupational status: retired Cognitive needs: No Hearing needs: No Vision needs: No Physical Exam Const Orientation/consciousness: patient oriented x3 Neck Neck: Yes no lymphadenopathy Thyroid: Thyroid normal Carotids: no bruits Resp Auscultation: clear to auscultation bilaterally Cardio Rate: regular rate Rhythm: regular rhythm Heart sounds: S1 normal heart sound present and S2 normal heart sound present Peripheral pulses: dorsalis pedis present Neuro General: patient oriented x3, gait normal and no focal motor deficits Extrem General: Yes normal to inspection Results AMB Hemoglobin A1c AMB Hemoglobin A1c 6.6 % Last Edit by GEORGETTE Johnson on 06/14/24 13:58 Results Reviewed Results Reviewed: Laboratory Tests 09/26/24 09/26/24 09:33 10:36 Hemoglobin A1c % 6.3 H AST 23 ALT 35 Triglycerides 85 Cholesterol 111 LDL Cholesterol, Calc 60 HDL Cholesterol 34 L Urine Creatinine 84.08 Urine Microalbumin 8.0 Microalb/Creat Ratio 9.5 Assessment & Plan Assessment & Plan (1) Controlled type 2 diabetes mellitus: Code(s): E11.9 - Type 2 diabetes mellitus without complications Category: Medical Qualifiers: Diabetes mellitus ocean transportation intermediary insulin use: without ocean transportation intermediary use Diabetes mellitus complication status: with unspecified complications Qualified Code(s): E11.8 - Type 2 diabetes mellitus with unspecified complications Plan: d/c jardiance due to urinary sx start trulicity. discussed risks, benefits and adverse effects such as n/v/d/c, increase risk of pancreatitis. continue metformin. labs ordered. complete prior to next appointment. (2) Dyslipidemia: Code(s): E78.5 - Hyperlipidemia, unspecified Category: Medical Plan: continue atorvastatin 40 mg nightly. Medications: New dulaglutide (Trulicity) 0.75 mg (0.5 mL) subcut QWEEK 2 mL 3RF Discontinued empagliflozin (Jardiance) Discontinued Reason: Doctor's Order 10 mg PO DAILY 90 days 90 tabs 0RF Coding Level of Care Code Est Pt Level 4 (59413) Complex EM visit Add On G2211 Diagnoses Controlled type 2 diabetes mellitus with complication, without long-term current use of insulin E11.8 Diabetes mellitus ocean transportation intermediary insulin use: without ocean transportation intermediary use Diabetes mellitus complication status: with unspecified complications Dyslipidemia E78.5
[2024-06-14 13:39] VITALS: BP 116/78; PULSE 75; BMI 31.8
[2024-06-14 13:50] LABS: Glucose, Whole Blood 149 mg/dL (60-115)
== END 2024-06-14 14:03 | disposition home or self-care (01) ==
PROVIDERS: PCP Internal Medicine; Visit Provider Physician Assistant
DX: E11.8 Type 2 diabetes mellitus with unspecified complications (principal); E78.5 Hyperlipidemia, unspecified; E11.59 Type 2 diabetes mellitus with other circulatory complications

== ENCOUNTER → 2024-06-14 13:33 | Outpatient (BNVA) | payer OTHER, SELFPAY | PROVIDERS: PCP Internal Medicine; Visit Provider Physician Assistant | DX: E11.8 Type 2 diabetes mellitus with unspecified complications (principal); E78.5 Hyperlipidemia, unspecified; K76.0 Fatty (change of) liver, not elsewhere classified; N52.9 Male erectile dysfunction, unspecified; F41.9 Anxiety disorder, unspecified; F32.A Depression, unspecified; Z79.84 Long term (current) use of oral hypoglycemic drugs; Z79.899 Other long term (current) drug therapy | CPT/HCPCS: 82947; 83036; 99212 ==

== ENCOUNTER 2024-07-01 14:43 | Outpatient (AMB) | payer OTHER, SELFPAY ==
--- NOTE | 2024-07-01 14:43 | MHC.OFFVIS ---
Vital Signs 07/01/24 14:44 Height 5 ft 7 in Weight 202 lb 6 oz BMI 31.7 Intake Visit Reasons: Ct-Scan results Intake Note: This patient presents for Ct-Scan results. Pt c/o: reports no complaints at this time. 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 Operator Services: Social Security Assessor Present (Zara) Information Interpreted: non-clinical & clinical Accompanied by: Self / Same As Patient Allergies Penicillins [PENICILLINS] Allergy (Unknown, Verified 07/08/24 10:40) ANAPHYLAXIS Medication List - Last Reconciled 07/01/24 by Joey Talbert MD albuterol sulfate 2.5 mg inhalation Q6H PRN atorvastatin 20 mg PO BEDTIME 90 days [bath mat As directed] bisacodyl 10 mg (2 x 5 mg) PO BEDTIME blood sugar diagnostic (Acupera Ultra Test strips) Use 1 test strip three times a day blood-glucose meter (Acupera Ultra2 Meter) As directed bupropion HCl XL 150 mg PO DAILY sdayyppqvh-ynfqgsfeijlcq-gaju 50-300-40 mg (Fioricet) 1 cap PO Q4-6H PRN clonazepam 1 mg PO 1 tab in pm and 1/2 tab Qam; clotrimazole-betamethasone 1-0.05 % 1 appl topical BID cyclobenzaprine 10 mg PO TID PRN cyclosporine 0.05% 1 drp ophthalmic (eye) BID dexlansoprazole 60 mg PO DAILY diclofenac sodium 3% 1 appl topical BID PRN 30 days dicyclomine 20 mg PO BID dulaglutide (Trulicity) 0.75 mg (0.5 mL) subcut QWEEK emollient combination no.32 (EpiCeram topical emulsion, extended release) topical escitalopram oxalate (Lexapro) 10 mg PO DAILY hydrocortisone 2.5% (Proctosol HC) 1 appl [place] BID Incruse Ellipta 62.5 mcg/actuation (umeclidinium) 1 inh PO DAILY NS ketoconazole 2% appl topical DAILY PRN lancets (Acupera UltraSoft 2 Lancet) Use 1 lancet three times per day day lancets (Munchkin Funuch Delica Safety Lancet) As directed 3 times per day mesalamine 2.4 grams (2 x 1.2 gram) PO DAILY metformin 500 mg PO BID mirabegron ER 25 mg PO DAILY 30 days montelukast 10 mg PO DAILY wf-mia-wlnry-H4-srsoymz-erfsrd 239-59-188-300 mcg (Centrum Silver Men) 1 tab PO DAILY oxybutynin chloride ER 15 mg PO DAILY propranolol ER 80 mg PO BID rivaroxaban (Xarelto) 20 mg PO DAILY ropinirole 1 mg PO BEDTIME [shower head As directed] simethicone (Gas Relief Extra Strength) 125 mg PO BID-QID sucralfate 20 mL PO QNOON tadalafil (Cialis) 5 mg PO DAILY triamcinolone acetonide 0.1% 1 appl topical BID-TID Ventolin HFA 90 mcg/actuation (albuterol sulfate) 2 puffs PO QID PRN NS zolpidem 10 mg PO BEDTIME PRN HPI HPI Ct-Scan results: Details: 63-year-old male referred for an incisional hernia. He had a laparotomy for a complicated diverticulitis in [place] in 2008. He has developed recurrent incisional hernias the area . I had repaired 2 hernias in the epigastric area in 2019 He says that he had been doing well but seems to have noted hernias again along the laparotomy site. He denies significant pain. He has good oral intake. He feels well overall. He has good oral intake. I would send her for a CT scan to image his abdominal wall as it appeared that he had diastasis on his last visit. He does point to an areas specific to the upper abdomen were he says that the hernia bothers him. [facility], [facility] Medical History Type 2 diabetes mellitus Hyperlipidemia LDL goal <70 COPD (chronic obstructive pulmonary disease) Personal history of nicotine dependence Allergic rhinitis History of COVID-19 Ulcerative colitis OAB (overactive bladder) Obesity (BMI 30-39.9) Insomnia Abdominal wall hernia Surgical History History of incisional hernia repair History of cervical spinal surgery History of colonoscopy History of appendectomy History of esophagogastroduodenoscopy (EGD) Family History Father Diabetes HTN (hypertension) Heart attack Mother Skin cancer HTN (hypertension) Diabetes Paternal Aunt Heart attack Sister Skin cancer Social History Household Members: Spouse Housing: Apartment Alcohol intake: never Patient Tobacco Use Status: Former Tobacco user Tobacco use type: Cigarette Years Smoked: (former smoker - onset 15yo, 1ppd x 36yrs, 35pyh, quit 2011) e-Cigarette/Vaping Use: Never Used Second Hand Smoke Exposure: No Substance Use Type: Marijuana service: No Current occupational status: retired Cognitive needs: No Hearing needs: No Vision needs: No Review of Systems Const Denies chills and Denies fever(s) Card Denies chest pain, Denies dyspnea and Denies dyspnea on exertion Resp Denies cough, Denies dyspnea and Denies dyspnea on exertion GI Denies hematochezia and Denies change in bowel habits Denies hematuria and Denies difficulty urinating Musc Denies back pain and Denies limited range of motion Neuro Denies focal weakness and Denies convulsions Psych Denies depression and Denies mood swings Physical Exam Vital Signs: BMI result Body Mass Index 31.7 Const General: comfortable and no acute distress Orientation/consciousness: patient oriented x3 Neck Neck: Yes no lymphadenopathy Resp Auscultation: clear to auscultation bilaterally Cardio Rhythm: regular rhythm GI Other: Large diastasis recti on most of the abdomen; there is a particular palpable fascial defect however in the upper abdomen measuring about 2.5 cm Palpation (GI): Soft to palpation, nontender and no guarding Neuro General: patient oriented x3 Assessment & Plan Assessment & Plan (1) Incisional hernia: Code(s): K43.2 - Incisional hernia without obstruction or gangrene Category: Medical Plan: He has diastasis recti of his abdominal wall on both upper abdomen and the lower abdomen. I have reviewed his CAT scan. This does show a fascial defect in the upper abdomen at the midline containing fat and a part of the in small bowel loop. This measures about 3 point 1 cm in diameter. He says that this is the area that he has discomfort with. He denies any discomfort in the other parts of the abdomen. His CAT scan does show a defect on the lateral edge of the old hernia in the lower abdomen. This has some fat without involvement of the bowel loops He says that he just wants the hernia on the upper abdomen repaired. I explained to him the technique of this procedure of repair with possible mesh. I reviewed the risks including but not limited to bleeding, infections, bowel injury, recurrence, as well as the benefits and alternatives. He understands and wants to proceed.. Coding Level of Care Code Est Pt Level 3 (92900) Diagnoses Incisional hernia K43.2
[2024-07-01 14:44] VITALS: BMI 31.7
== END 2024-07-01 15:50 | disposition home or self-care (01) ==
PROVIDERS: PCP Internal Medicine; Visit Provider Surgery
DX: K43.2 Incisional hernia without obstruction or gangrene (principal)
CPT/HCPCS: 99213

== ENCOUNTER → 2024-07-01 14:43 | Outpatient (BNVA) | payer OTHER, SELFPAY | PROVIDERS: PCP Internal Medicine; Visit Provider Surgery | DX: K43.2 Incisional hernia without obstruction or gangrene (principal) | CPT/HCPCS: 99212 ==

== ENCOUNTER 2024-07-08 10:15 | Outpatient (AMB) | payer OTHER, SELFPAY ==
--- NOTE | 2024-07-08 10:22 | MHC.PC.OV ---
Vital Signs 07/08/24 10:23 Height 5 ft 7 in Weight 198 lb BMI 31.0 BP 110/72 Blood Pressure Location Lt brachial Position Sitting Intake Visit Reasons: Annual exam/DM Intake Note: Patient here for an annual physical exam Lease Out Man Required: No Accompanied by: Self / Same As Patient Allergies Penicillins [PENICILLINS] Allergy (Unknown, Verified 07/08/24 10:40) ANAPHYLAXIS Medication List - Last Reconciled 07/08/24 by Shelli Bartlett MD albuterol sulfate 2.5 mg inhalation Q6H PRN atorvastatin 20 mg PO BEDTIME 90 days [bath mat As directed] bisacodyl 10 mg (2 x 5 mg) PO BEDTIME blood sugar diagnostic (Xiaoi Robert Ultra Test strips) Use 1 test strip three times a day blood-glucose meter (Xiaoi Robert Ultra2 Meter) As directed bupropion HCl XL 150 mg PO DAILY zvgfbdnigx-deddpfitwmuqj-lybu 50-300-40 mg (Fioricet) 1 cap PO Q4-6H PRN clonazepam 1 mg PO 1 tab in pm and 1/2 tab Qam; clotrimazole-betamethasone 1-0.05 % 1 appl topical BID cyclobenzaprine 10 mg PO TID PRN cyclosporine 0.05% 1 drp ophthalmic (eye) BID dexlansoprazole 60 mg PO DAILY diclofenac sodium 3% 1 appl topical BID PRN 30 days dicyclomine 20 mg PO BID dulaglutide (Trulicity) 0.75 mg (0.5 mL) subcut QWEEK emollient combination no.32 (EpiCeram topical emulsion, extended release) topical escitalopram oxalate (Lexapro) 10 mg PO DAILY hydrocortisone 2.5% (Proctosol HC) 1 appl [place] BID Incruse Ellipta 62.5 mcg/actuation (umeclidinium) 1 inh PO DAILY NS ketoconazole 2% appl topical DAILY PRN lancets (Xiaoi Robert UltraSoft 2 Lancet) Use 1 lancet three times per day day lancets (Revuch Delica Safety Lancet) As directed 3 times per day mesalamine 2.4 grams (2 x 1.2 gram) PO DAILY metformin 500 mg PO BID mirabegron ER 25 mg PO DAILY 30 days montelukast 10 mg PO DAILY cr-seu-ktsmn-K1-lutunqk-kmsotg 532-07-348-300 mcg (Centrum Silver Men) 1 tab PO DAILY oxybutynin chloride ER 15 mg PO DAILY propranolol ER 80 mg PO BID rivaroxaban (Xarelto) 20 mg PO DAILY ropinirole 1 mg PO BEDTIME [shower head As directed] simethicone (Gas Relief Extra Strength) 125 mg PO BID-QID sucralfate 20 mL PO QNOON tadalafil (Cialis) 5 mg PO DAILY triamcinolone acetonide 0.1% 1 appl topical BID-TID Ventolin HFA 90 mcg/actuation (albuterol sulfate) 2 puffs PO QID PRN NS zolpidem 10 mg PO BEDTIME PRN Tobacco use date assessed: 07/08/24 Dental Screening Dental Screen Date: 07/08/24 Did you have a dental visit in the last 12 months?: No Did you have a dental problem in the last 6 months where you did not have access to dental care?: No Was dental information given to patient?: Patient has dentist HPI HPI Comments History of Present Illness Details The patient is a 63-year-old male presenting with a comprehensive wellness examination. He has a history of Chronic Obstructive Pulmonary Disease (COPD), which is managed with Incruse inhaler and diabetes mellitus type 2 treated with Trulicity. He reports good control over appetite and weight reduction in recent weeks. The patient also has a diagnosis of Hyperlipidemia, effectively managed with atorvastatin 20 mg, achieving an LDL level of 60. The diagnosis of Hypertension is part of his medical history, along with Ulcerative Colitis managed via mesalamine for symptom control. The patient experiences anxiety, managed by escitalopram, and suffers episodes of migraine addressed with Fioricet for pain relief. He also uses dexlansoprazole for Gastroesophageal Reflux Disease (GERD), although he notes worsening symptoms without timely use of the medication. Peripheral Vascular Disease is implied given his use of Xarelto for vascular concerns and elevating his legs alleviates symptoms of circulation irregularities. The patient has undergone a repair for a hernia sac, has Erectile Dysfunction treated by [facility], and experiences sleep disorders using Zolpidem as a sleep aid. There is a documented penicillin allergy, requiring lifelong avoidance. Significant family history includes diabetes and hypertension in both parents with circulatory problems. - Up to date on vaccinations, including pneumococcal and RSV vaccines. - Received Shingrix for shingles. - Underwent colonoscopy in 2021 with recommendation for repeat in three years. - Endoscopy performed in 2021. - Controlled diabetes with HbA1c level of less than 7. - LDL level achieved at 60 with atorvastatin. [facility] Medical History Type 2 diabetes mellitus Hyperlipidemia LDL goal <70 COPD (chronic obstructive pulmonary disease) Personal history of nicotine dependence Allergic rhinitis History of COVID-19 Ulcerative colitis OAB (overactive bladder) Obesity (BMI 30-39.9) Insomnia Abdominal wall hernia Surgical History History of incisional hernia repair History of cervical spinal surgery History of colonoscopy History of appendectomy History of esophagogastroduodenoscopy (EGD) Family History Father Diabetes HTN (hypertension) Heart attack Mother Skin cancer HTN (hypertension) Diabetes Paternal Aunt Heart attack Sister Skin cancer Social History Household Members: Spouse Housing: Apartment Alcohol intake: never Patient Tobacco Use Status: Former Tobacco user Tobacco use type: Cigarette Years Smoked: (former smoker - onset 15yo, 1ppd x 36yrs, 35pyh, quit 2011) e-Cigarette/Vaping Use: Never Used Second Hand Smoke Exposure: No Substance Use Type: Marijuana service: No Current occupational status: retired Cognitive needs: No Hearing needs: No Vision needs: No Questionnaire PHQ-9 Over the last 2 weeks, how often have you been bothered by any of the following problems? 1. Little interest or pleasure in doing things: several days 2. Feeling down, depressed, or hopeless: several days 3. Trouble falling or staying asleep, or sleeping too much: more than half the days 4. Feeling tired or having little energy: several days 5. Poor appetite or overeating: several days 6. Feeling bad about yourself - or that you are a failure or have let yourself or your family down: several days 7. Trouble concentrating on things, such as reading the newspaper or watching television: several days 8. Moving or speaking so slowly that other people could have noticed. Or the opposite - being so fidgety or restless that you have been moving around a lot more than usual: several days 9. Thoughts that you would be better off or of hurting yourself in some way: not at all Total score: 9 Depression Screening Interpretation: Positive Depression Screening Follow-up: Existing condition, In treatment, Community Mental Health Worker F/U and Follow-up Visit Requested Depression Screening Done: Yes 81627 - PHQ-9 Billing: Yes Source: Developed by Drs. 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 Thrive Questionnaire Date Thrive assessed: 07/08/24 I am a: Patient What is your living situation today?: I have a steady place to live Within the past 12 months, did the food you bought not last and you didn't have the money to get more?: Often true Within the past 12 months, did you worry whether your food would run out before you got money to buy more?: Often true Do you have trouble paying for medicines?: No Do you have trouble getting transportation to medical appointments?: No Do you have trouble paying your heating and electricity bill?: Yes Do you have trouble taking care of your child, family member or friend?: I choose not to answer this question Do you have trouble with day-to-day activities such as bathing, preparing meals, shopping, managing finances, etc.?: Yes Are you currently unemployed and looking for a job?: I choose not to answer this question Are you interested in more education?: Yes Please select the resources that you would like help with: Food Currently or been in a relationship where the following occur: No concerns reported THRIVE Score: 3 AUDIT C Alcohol Use Questionnaire (AUDIT-C) 1. How often do you have a drink containing alcohol?: Never Total Score: 0 Score Reviewed/Action Taken: No KRZYSZTOF-7 AMB Questionnaire KRZYSZTOF-7 Date KRZYSZTOF - 7 assessed: 07/08/24 Feeling nervous, anxious, or on edge: 1 = Several days Not being able to stop or control worryin = Several days Worrying too much about different things: 1 = Several days Trouble relaxin = Several days Being so restless that it is hard to sit still: 1 = Several days Becoming easily annoyed or irritable: 1 = Several days Feeling afraid as if something awful might happen: 1 = Several days Total KRZYSZTOF-7 score (0-4 normal; 5-9 mild; 10-14 moderate; 15-21 severe): 7 Source: Developed by Drs. 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 KRZYSZTOF-7 Assessment Billing KRZYSZTOF-7 Assessment Tool: KRZYSZTOF-7 Assessment 96954 Review of Systems Const All systems reviewed & are unremarkable except as noted in HPI and below Card Denies chest pain at rest, Denies chest pain with activity, Denies edema, Denies irregular heart rhythm, Denies claudication, Denies dyspnea, Denies dyspnea on exertion, Denies orthopnea, Denies paroxysmal nocturnal dyspnea and Denies slow heart rate Resp Denies cough, Denies dyspnea and Denies dyspnea on exertion Denies urinary hesitancy, Denies urinary incontinence and Denies urinary urgency Physical exam (Primary Care) Vital Signs: Last Vital Signs BP 110/72 07/08/24 10:23 BMI result Body Mass Index 31.0 BMI Assessment/Plan discussion: High BMI High, discussed plan: lifestyle, weight reduction, dietary and physical activity Tobacco/Smoking Status: Tobacco use Status Tobacco use date assessed 07/08/24 07/08/24 10:28 Patient Tobacco Use Status Former Tobacco user 07/08/24 10:28 Tobacco use type Cigarette 07/08/24 10:28 e-Cigarette/Vaping Use Never Used 07/08/24 10:28 PHQ-9: PHQ-9 Score PHQ-9: Total score 9 07/08/24 12:40 Depression Screening Interpretation: Positive Depression Screening Follow-up: Existing condition, In treatment, Community Mental Health Worker F/U and Follow-up Visit Requested Thrive Assessment: Date of Thrive Assessment Date Thrive assessed 07/08/24 07/08/24 10:28 Currently or been in a relationship where the following occur: No concerns reported HENND Head: Yes normal to inspection, Yes normocephalic and Yes atraumatic Ears: external ears normal Eyes General: appearance normal, both eyes and all related structures Eyelids: Yes eyelids normal Conjunctivae: conjunctivae normal Neck Neck: Yes normal visual inspection and Yes supple Resp Effort & Inspection: normal respiratory effort Auscultation: clear to auscultation bilaterally Cardio Jugular venous distension: no JVD Rate: regular rate Rhythm: regular rhythm Heart sounds: S1 normal heart sound present and S2 normal heart sound present GI Inspection: Yes normal to inspection Palpation (GI): Soft to palpation and nontender Auscultation: normal bowel sounds Skin General skin exam: no rashes or lesions noted Neuro General: no focal motor deficits Extrem General: Yes full ROM Psych Appearance: grossly normal Office Procedures Flu Questionnaire Does the patient have a severe egg allergy?: No Does the patient have severe life threatening allergies?: No Does the patient have a fever or illness today?: No Has the patient ever had Guillain-[place] Syndrome?: No Has the patient ever had any past reaction to a flu shot?: No Immunizations Fluarix Triv 8445-1129 (PF) 45 mcg (15 mcg x 3)/0.5 mL IM syringe Performing Provider: Shelli Bartlett MD [facility] Administered by: GEORGETTE Palma on 07/08/24 11:01 Dose Route Admin Location Dispensed Lot Number Expiration Date NDC [employer] 0.5 mL IM Left Deltoid 0.5 mL [id number] 12/27/24 [id number] [employer] VIS Given Date VIS Provided VIS Publication Date 07/08/24 Single Vaccine 21 Eligibility Eligibility Date Funding Source Not [facility] Eligible 07/08/24 Private Coding Level of Care Code Est Pt Prev Care 40-64y(99261) Diagnoses Physical exam Z00.00 Controlled type 2 diabetes mellitus with complication, without long-term current use of insulin E11.8 Diabetes mellitus buttermaker continuous churn insulin use: without skilled nursing use Diabetes mellitus complication status: with unspecified complications Panlobular emphysema J43.1 COPD type: emphysema Emphysema type: panlobular Mild major depression F32.0 Ulcerative colitis K51.90 Additional Codes KRZYSZTOF-7 Assessment Billing - KRZYSZTOF-7 Assessment Tool: KRZYSZTOF-7 Assessment 03444 ([id number]) PHQ-9 - 21390 - PHQ-9 Billing: Yes ([id number]) Time Spent (min) 33 Assessment & Plan Assessment & Plan (1) Physical exam: Code(s): Z00.00 - Encounter for general adult medical examination without abnormal findings Category: Medical (2) Controlled type 2 diabetes mellitus: Code(s): E11.9 - Type 2 diabetes mellitus without complications Category: Medical Qualifiers: Diabetes mellitus buttermaker continuous churn insulin use: without skilled nursing use Diabetes mellitus complication status: with unspecified complications Qualified Code(s): E11.8 - Type 2 diabetes mellitus with unspecified complications (3) COPD (chronic obstructive pulmonary disease): Comment: Moderate degree of chronic obstructive pulmonary disease, ., SEC TO PAST h/o SMOKING STABLE AT THIS TIME. But he is prone to get frequent upper respiratory infections. Code(s): J44.9 - Chronic obstructive pulmonary disease, unspecified Category: Medical Qualifiers: COPD type: emphysema Emphysema type: panlobular Qualified Code(s): J43.1 - Panlobular emphysema (4) Mild major depression: Code(s): F32.0 - Major depressive disorder, single episode, mild Category: Medical (5) Ulcerative colitis: Code(s): K51.90 - Ulcerative colitis, unspecified, without complications Category: Medical Plan - Manage COPD with continued use of Incruse inhaler and ongoing Trulicity therapy. - Maintain hyperlipidemia control with continued atorvastatin; monitor lipid profile. - Continue antihypertensive regimen and assess cardiovascular health. - Follow up for ulcerative colitis management with mesalamine. - Monitor diabetes management and blood glucose with Trulicity. - Address anxiety symptoms with escitalopram maintenance. - For migraine episodes, Fioricet provided with alternative medication discussed. - GERD symptoms controlled with dexlansoprazole. - Vascular health managed with Xarelto, noting leg elevation as supportive care. - Follow up on hernia repair status with upcoming procedure. - Address erectile dysfunction with Cialis. - Continue sleep management with Zolpidem. Patient was informed and verbally consented to the use of an ambient scribe for clinic note documentation during this visit. I addressed the management of COPD with ongoing use of Trulicity and inhaler therapy. We discussed the efficacy of atorvastatin in controlling lipid profile. The importance of continuing anti-hypertensive and diabetic medications was emphasized. For migraine management, we reviewed the current regimen while ensuring alternatives were available. I noted the patient's circulatory health, advising on conservative measures like leg elevation. We discussed the benefits and necessity of upcoming hernia-related procedures. The patient's allergies and family history were acknowledged, ensuring tailored treatment avoiding penicillin. Follow-ups for progressive evaluations were advised, especially concerning diabetes and cardiovascular status. Orders: Orders Microalbumin, Random (w Creat) 4 Months R80.9 - Proteinuria, unspecified Vitamin D 25-OH Total 4 Months E55.9 - Vitamin D deficiency, unspecified Lipid Panel 4 Months E78.5 - Hyperlipidemia, unspecified Comprehensive [place]. Panel Fast 4 Months E11.8 - Type 2 diabetes mellitus with unspecified complications Influenza [id number] Immunization Today Z23 - Encounter for immunization Referrals Open Access Screening Colonoscopy Referral Z12.12 - Encounter for screening for malignant neoplasm of rectum Patient Instructions: - Continue scheduled medications, including atorvastatin, escitalopram, and inhalers as prescribed. - Utilize elevation techniques for circulatory relief. - Stay adherent to diabetes management plan. - Maintain current reflux management practices. - Attend scheduled procedures and follow-ups for healthcare maintenance. - Report any significant changes in symptoms or side effects of medications.
[2024-07-08 10:23] VITALS: BP 110/72; BMI 31.0
== END 2024-07-08 11:06 | disposition home or self-care (01) ==
PROVIDERS: PCP Internal Medicine; Visit Provider Internal Medicine
DX: Z00.00 Encounter for general adult medical examination without abnormal findings (principal); E11.8 Type 2 diabetes mellitus with unspecified complications; J43.1 Panlobular emphysema; F32.0 Major depressive disorder, single episode, mild; K51.90 Ulcerative colitis, unspecified, without complications; Z23 Encounter for immunization

== ENCOUNTER → 2024-07-08 10:15 | Outpatient (BNVA) | payer OTHER, SELFPAY | PROVIDERS: PCP Internal Medicine; Visit Provider Internal Medicine | DX: Z00.00 Encounter for general adult medical examination without abnormal findings (principal); J44.9 Chronic obstructive pulmonary disease, unspecified; G43.909 Migraine, unspecified, not intractable, without status migrainosus; K21.9 Gastro-esophageal reflux disease without esophagitis; N52.9 Male erectile dysfunction, unspecified; G47.9 Sleep disorder, unspecified; F32.0 Major depressive disorder, single episode, mild; K51.90 Ulcerative colitis, unspecified, without complications; R80.9 Proteinuria, unspecified; E55.9 Vitamin D deficiency, unspecified; E78.5 Hyperlipidemia, unspecified; Z23 Encounter for immunization; Z79.899 Other long term (current) drug therapy | CPT/HCPCS: 90471; 90656; 96127; 99396 ==

== ENCOUNTER → 2024-08-06 13:34 | Outpatient (BNVA) | payer OTHER, SELFPAY | PROVIDERS: PCP Internal Medicine; Visit Provider Urology ==

== ENCOUNTER 2024-08-10 13:37 | Outpatient (AMB) | payer OTHER, SELFPAY ==
--- NOTE | 2024-08-10 13:38 | MHC.OFFVIS ---
Intake Visit Reasons: 2M Med Review(Myrbetriq) Intake Note: Patient is present for 2M MED REVIEW Urology Medication:OXYBUTYNIN,TADALAFIL,MIRABEGRON Antibiotic Allergy:PENICILLIN Blood Thinner:VITAMIN K,RIVAROXABAN X Ray Nurse Required: No Allergies Penicillins [PENICILLINS] Allergy (Unknown, Verified 08/10/24 13:39) ANAPHYLAXIS HPI Comments Details: Kali is a pleasant Upper Sorbian-speaking male. He is a patient of Dr. Bartlett. He is seen for the following urologic conditions - erectile dysfunction - bladder instability overactive bladder - elevated PSA Upper Sorbian translation provided by qualified director biomedical engineering Switched to Trulicity by Endocrinology Significant reduction in urinary urgency Stop Myrbetriq Continue oxybutynin 10 mg Six-month follow-up Erectile dysfunction in setting of type 2 diabetes Has been on Cialis 5 mg daily Previously used 20 mg on demand Bladder instability Oxybutynin 10 mg dialy PSA 09/20 2.9, 11/20 T 451 Using Jardiance with glucose 3+ - contributing to urinary urgency and frequency and nocturia Endocrinology switched to Trulicity with significant impact on bladder urgency and frequency PFSH Medical History Type 2 diabetes mellitus Hyperlipidemia LDL goal <70 COPD (chronic obstructive pulmonary disease) Personal history of nicotine dependence Allergic rhinitis History of COVID-19 Ulcerative colitis OAB (overactive bladder) Obesity (BMI 30-39.9) Insomnia Abdominal wall hernia Surgical History History of incisional hernia repair History of cervical spinal surgery History of colonoscopy History of appendectomy History of esophagogastroduodenoscopy (EGD) Family History Father Diabetes HTN (hypertension) Heart attack Mother Skin cancer HTN (hypertension) Diabetes Paternal Aunt Heart attack Sister Skin cancer Social History Household Members: Spouse Housing: Apartment Alcohol intake: never Patient Tobacco Use Status: Former Tobacco user Tobacco use type: Cigarette Years Smoked: (former smoker - onset 15yo, 1ppd x 36yrs, 35pyh, quit 2011) e-Cigarette/Vaping Use: Never Used Second Hand Smoke Exposure: No Substance Use Type: Marijuana service: No Current occupational status: retired Cognitive needs: No Hearing needs: No Vision needs: No Review of Systems Const All systems reviewed & are unremarkable except as noted in HPI and below Reports no additional complaints Resp Reports no additional complaints GI Reports no additional complaints Reports as per HPI Musc Reports no additional complaints Physical Exam Telemedicine evaluation Appropriate responses Regular breathing rate and rhythm HEENT Head: Yes normal to inspection Ears: hearing grossly normal bilaterally Eyes General: appearance normal, both eyes and all related structures Neck Neck: Yes normal visual inspection Chest Chest palpation & inspection: normal inspection of the chest Resp Effort & Inspection: normal respiratory effort and able to speak in complete sentences Telehealth Telehealth Location of provider rendering services: practice address Location of patient: address on file Patient Identification confirmed using: Name, : Yes Telehealth method: voice only Patient verbally consented to treatment: Yes Patient verbally consented to billing insurance company: Yes Patient informed of any privacy concerns related to visit: Yes Assessment & Plan Assessment & Plan (1) BPH w urinary obs/LUTS: Code(s): N40.1 - Benign prostatic hyperplasia with lower urinary tract symptoms; N13.8 - Other obstructive and reflux uropathy Category: Medical (2) Erectile dysfunction: Code(s): N52.9 - Male erectile dysfunction, unspecified Category: Medical (3) OAB (overactive bladder): Code(s): N32.81 - Overactive bladder Category: Medical Plan Six-month follow up Medications: Changed From oxybutynin chloride ER to replace oxybutynin 10 mg 15 mg PO DAILY 30 tabs 3RF To oxybutynin chloride ER daily 10 mg PO DAILY 90 days 90 tabs 1RF From tadalafil (Cialis) [id number] [facility] [place] [id number] Member [id number] 5 mg PO DAILY 30 tabs 3RF To tadalafil (Cialis) fortune patient 5 mg PO DAILY 90 days 90 tabs 1RF Discontinued mirabegron ER Discontinued Reason: Doctor's Order 25 mg PO DAILY 30 days 30 tabs 1RF N32.81 - Overactive bladder Patient Instructions: This note is constructed using voice recognition software. While every effort has been made to ensure accuracy telephone coin box collector errors may have been included. Imaging studies, laboratory and physical exam results were discussed and reviewed in detail. No major barriers to patient understanding were identified. An opportunity to ask questions regarding the treatment plan was provided. All questions were answered. The patient expressed understanding and agreement with the above treatment plan. The patient is aware they should contact our office by phone for worsening of their current condition or the appearance of new urologic symptoms. Compliance is encouraged with any medications and followup testing that is ordered. It is a privilege to participate in the urologic care of your patient. If you have any questions or concerns regarding treatment for the above conditions, or other urologic issues, please do not hesitate to contact me. The office telephone contact is [phone]. Sincerely, Dr Jc Fitzpatrick MD, [facility] - Urology Compassionate Specialist Care for the Genitourinary System Coding Level of Care Code Tele Est Pt Level 4 (74648) Diagnoses BPH w urinary obs/LUTS N40.1; N13.8 Erectile dysfunction N52.9 OAB (overactive bladder) N32.81
--- OUTSIDE RECORDS SUMMARY | 2024-08-10 14:42 | XMS_ITS | Encounter Summary ---
Author Organization [employer] Address [address] [place] [address] Care Team Providers Care Cash Teller Name Role Phone Unavailable Primary Care Provider Unavailabl e Encounter Details Date Type Department Care Team (Late st Contact Info) Description 07/27/2024 Telephone [facility] MEDICINE [address] [place] [address] Sachin Dawkins MD [address] [place] [address] Social History Tobacco Use Types Packs/Day Years Used Date Smoking Tobacco: Former Cigarettes Passive Smoke Exposure: Never Smokeless Tobacco: Never Alcohol Use Standard Drinks/Week Comments Never 0 (1 standard drink = 0.6 oz pur e alcohol) Sex and Gender Information Value Date Recorded Sex Assigned at Male 04/29/2022 10:33 AM EDT Legal Sex Male 10:33 AM EDT Gender Identity Choose not to disclose 2 10:33 AM EDT Sexual Orientation Choose not to disclose 2021 10:33 AM EDT documented as of this encounter Miscellaneous Notes * Telephone Encounter - Zarina Werner - 07/27/2024 1:48 PM EST Outgoing call to pt to book New Patient appt. No answer. documented in this encounter Plan of Treatment Upcoming Encounters Date Type Department Care Team (Late st Contact Info) Description 10/27/2024 3:00 PM EDT Office Visit [facility] OPTOMETRY [address] [place] [address] Saniya Veliz, OD [address] [place] [address] documented as of this encounter Visit Diagnoses Not on filedocumented in this encounter
--- OUTSIDE RECORDS SUMMARY | 2024-08-10 14:42 | XMS_ITS | Encounter Summary ---
Author Organization [employer] Address [address] [place] [address] Care Team Providers Care Computer Systems Security Analyst Name Role Phone Unavailable Primary Care Provider Unavailabl e Encounter Details Date Type Department Care Team (Late Contact Info) Description 10/08/2022 Abstract [facility] ADULT DENTAL [address] [place] [address] Raymundo, Erum [address] [place] [address] Social History Tobacco Use Types Packs/Day Years Used Date Smoking Tobacco: Former Cigarettes Passive Smoke Exposure: Never Smokeless Tobacco: Never Alcohol Use Standard Drinks/Week Comments Never 0 (1 standard drink = 0.6 oz pur e alcohol) Sex and Gender Information Value Date Recorded Sex Assigned at Male 04/29/2022 10:33 AM EDT Legal Sex Male 10:33 AM EDT Gender Identity Choose not to disclose 10:33 AM EDT Sexual Orientation Choose not to disclose 2021 10:33 AM EDT COVID-19 Exposure Response Date Recorded In the last 10 days, have yo u been in contact with someone who was confirmed or suspected to have Coronavirus/COVID-19? No / Unsure 10/10/2022 8:45 AM EDT documented as of this encounter Plan of Treatment Upcoming Encounters Date Type Department Care Team (Late Contact Info) Description 10/27/2024 3:00 PM EDT Office Visit [facility] OPTOMETRY [address] [place] [address] Saniya Veliz, OD [address] [place] [address] documented as of this encounter Visit Diagnoses Not on filedocumented in this encounter
--- OUTSIDE RECORDS SUMMARY | 2024-08-10 14:42 | XMS_ITS | Clinical Summary ---
Author Organization [employer] Address [address] [place] [address] Care Team Providers Care Manager Balance Name Role Phone Unavailable Primary Care Provider Unavailabl e Allergies Active Allergy Reactions Criticality Noted Date Comments Penicillin G Rash High 11/04/2017 Other reaction(s): Rash Penicillins Rash High 11/04/2017 Other Reaction(s): skin erruptions Other reaction(s): Rash Medications albuterol (ProAir HFA) 108 (90 Base) MCG/ACT inhaler Inhale 4 times a day. 8 Active carboxymethylce llulose (Refresh Plus) 0.5 % ophthalmic solution use as directed as needed for dry eyes 8 Active clotrimazole (Lotrimin AF) 1 % cream Apply topically every 12 (twelve) hours. 8 Active Fluticasone Furoate-Vilante rol (Breo Ellipta) 100-25 MCG/ACT aerosol powder Inhale 1 puff at bed time. 8 Active Multiple Vitamins-Minera ls (Centrum Silver Adult 50+) tablet Take 1 tablet by mouth at bed time. 9 Active nabumetone (Relafen) 500 MG tablet Take 1 tablet by mouth in the morning and 1 tablet in the evening. 8 Active buPROPion XL (Wellbutrin XL) 300 MG 24 hr tablet Take 300 mg by mouth in the morning. 2 Active mesalamine (Lialda) 1.2 g EC tablet Take 2.4 g by mouth in the morning. 3 Active escitalopram (Lexapro) 10 MG tablet Take 10 mg by mouth in the morning. 2 Active propranolol LA (Inderal LA) 80 MG 24 hr capsule Take 80 mg by mouth 2 times daily. 3 Active tadalafil (Cialis) 20 MG tablet TAKE ONE TABLET BY MOUTH DAILY NEEDED FOR SEXUAL ACTIVITY. MAY USE UP TO 1 AND 1/2 TABLETS 3 Active tolterodine LA (Detrol LA) 4 MG 24 hr capsule Take 4 mg by mouth in the morning. 3 Active zolpidem (Ambien) 10 MG tablet Take 10 mg by mouth if needed at bedtime. 3 Active Gentle Laxative 5 MG EC tablet Take 10 mg by mouth at bedtime. 3 Active dexlansoprazole (Dexilant) [address] capsule Take 1 capsule by mouth in the morning. 3 Active ketoconazole (NIZOral) 2 % cream APPLY TO FACE TWICE DAILY NEEDED SCALES 3 Active montelukast (Singulair) 10 MG tablet Take 10 mg by mouth in the morning. 3 Active GAS RELIEF 125 MG capsule TAKE 1 CAPSULE BY MOUTH 2 TO 4 TIMES A DAY . 3 Active triamcinolone (Kenalog) 0.1 % cream 3 Active tadalafil (Cialis) 10 MG tablet TAKE 2 TABLETS (20 MG) BY MOUTH DAILY FOR SEXUAL ACTIVITY 2 Active Incruse Ellipta 62.5 MCG/ACT aerosol powder INHALE 1 PUFF BY MOUTH DAILY 3 Active amitriptyline (Elavil) 25 MG tablet Take 25 mg by mouth at bedtime. 2 Active metFORMIN (Glucophage) 500 MG tablet Take 500 mg by mouth 2 times daily. 3 Active Lancets (OneTouch Delica Plus [id number]) misc USE ONCE DAILY 3 Active OneTouch Ultra test strip TEST ONCE DAILY 3 Active meloxicam (Mobic) 7.5 MG tablet TAKE 1 TABLET BY MOUTH EVERY DAY. DO NOT TAKE WITH OTHER NSAIDS 3 Active dicyclomine (Bentyl) 20 MG tablet 3 Active cycloSPORINE (Restasis) 0.05 % ophthalmic emulsion INSTILL 1 DROP IN BOTH EYES TWICE DAILY 3 Active cyclobenzaprine (Flexeril) 10 MG tablet Take 10 mg by mouth if needed in the morning, at noon, and at bedtime. 3 Active Blood Glucose Monitoring Suppl (ONE TOUCH ULTRA 2) w/Device kit USE DIRECTED 3 Active atorvastatin (Lipitor) 20 MG tablet Take 20 mg by mouth at bedtime. 3 Active chlorhexidine (Peridex) 0.12 % solution Swish 15 mL morning and night for 1 minute. Spit, do not swallow. Do not eat or drink for 30 minutes following use. 473 mL 4 Active dextran 70-hypromellose (artificial tears) 0.1-0.3 % ophthalmic solution Administer 1 drop into both eyes 4 times daily. 15 mL 11 4 04/28/20 25 Active Jardiance 10 MG Take 10 mg by mouth Once per day. 4 Active SUMAtriptan (Imitrex) 50 MG tablet 4 Active clonazePAM (KlonoPIN) 0.5 MG tablet TAKE 1 TABLET BY MOUTH IN THE MORNING AND 2 TABLETS BY MOUTH AT BEDTIME 4 Active oxybutynin XL (Ditropan-XL) 15 MG 24 hr tablet TAKE 1 TABLET BY MOUTH DAILY. REPLACE OXYBUTYNIN 10 MG 4 Active Xarelto 20 MG tablet Take 20 mg by mouth Once per day. Take with food. 4 Active Active Problems Problem Noted Date Diagnosed Date Open fracture of tooth 02/13/2024 Fractured dental yarsanism with loss of materi al 02/02/2024 Diabetes 08/04/2023 Overview (02/13/2024): Last Assessment & Plan: A1c should be less than 7 and LDL less than 70 mg/dL he is on high intensity statin therapy I talked to him at length about diet and exercise Localized edema 08/04/2023 Overview (02/13/2024): Last Assessment & Plan: He does get swelling especially at the end of the day and does have venous varicosities I am going to check a venous reflux study Pure hypercholesterolemia 08/04/2023 Overview (02/13/2024): Last Assessment & Plan: LDL should be less than 70 he is on Lipitor 20 mg a day Varicose veins of bilateral lower extremities with other complications 08/04/2023 Overview (02/13/2024): Last Assessment & Plan: As mentioned I have ordered a venous reflux study I will see this patient thereafter in follow-up. I will then tailor more specific therapy. Dental caries 12/04/2022 Periodontal disease 09/20/2022 Dental calculus 09/20/2022 Localized gingival recession 09/20/2022 Asthma-chronic obstructive p ulmonary disease overlap syndrome 11/04/2017 Benzodiazepine dependence 11/04/2017 Chronic recurrent sinusitis 11/04/2017 Colitis 11/04/2017 Disorder of tendon of shoulder region 11/04/2017 Dry eyes 11/04/2017 Gastroesophageal reflux disease without esophagi tis 11/04/2017 Lumbar back pain with radicu lopathy affecting right lower extremity 11/04/2017 Mood disorder 11/04/2017 Noise-induced hearing loss 11/04/2017 Obesity 11/04/2017 Opioid dependence in remission 11/04/2017 Encounters Date Type Department Care Team Description 07/27/2024 Telephone [facility] MEDICINE [address] [place] [phone] Sachin Dawkins MD from Last 3 Months Immunizations Name Administration Dates Next Due Influenza injectable quadriv alent IIV4 with preservative 06/11/2019,03/26/2018 Influenza injectable quadrivalent preservative f ree 04/22/2022,04/20/2021 Pfizer Covid-19 Vaccine 12+ Bivalent 08/22/2022 Pneumococcal Conjugate PCV 20 11/07/2022 Pneumococcal Polysaccharide PPSV23 02/23/2018 Tdap 12/04/2014 Zoster, Recombinant 01/11/2020,06/11/2019 Social History Tobacco Use Types Packs/Day Years Used Date Smoking Tobacco: Former Cigarettes Passive Smoke Exposure: Never Smokeless Tobacco: Never Tobacco Cessation:Counseling Given: Not Answered Alcohol Use Standard Drinks/Week Comments Never 0 (1 standard drink = 0.6 oz pur e alcohol) Sex and Gender Information Value Date Recorded Sex Assigned at Male 04/29/2022 10:33 AM EDT Legal Sex Male 10:33 AM EDT Gender Identity Choose not to disclose 10:33 AM EDT Sexual Orientation Choose not to disclose 2021 10:33 AM EDT Last Filed Vital Signs Vital Sign Reading Time Taken Comments Blood Pressure 108/60 02/13/2024 10:58 AM EDT Pulse 70 11/01/2022 2:54 PM EDT Temperature - - Respiratory Rate - - Oxygen Saturation - - Inhaled Oxygen Concentration - - Weight - - Height - - Body Mass Index - - Plan of Treatment Upcoming Encounters Date Type Department Care Team (Late st Contact Info) Description 10/27/2024 3:00 PM EDT Office Visit [facility] OPTOMETRY [address] [place] [address] Jose Alfredo, Saniya, OD [address] [place] [address] Health Maintenance Due Date Last Done Comments Anal Pap 1960 CT Colonography 1960 Colonoscopy 1960 Colorectal Cancer Screening 1960 Depression Screening 1960 Diabetes: Hemoglobin A1C 1960 FIT DNA/Cologuard 1960 FIT 1960 FOBT 1960 HIV Screening 1960 Lipid Panel 1960 SDOH Screening 1960 Sigmoidoscopy 1960 Diabetes: Foot Exam 1970 Alcohol/Substance Use Screening 1972 Hepatitis C Screening 1978 Diabetes: Urine Protein Screening 10/29/1979 Hepatitis A Vaccines (1 of 2 - Risk 2-dose series) 10/29/1979 Hepatitis B Vaccines (1 of 3 - Risk 3-dose series) 2020 RSV Patients and Patients Aged 60 years or older (1 - Risk 60-74 years 1-dose series) 2020 COVID-19 Vaccine ( season) 2024 08/22/2022, 06/21/2021, 10/04/2020 Influenza Vaccine (#1) 2024 , 04/22/2022, 04/20/2021, Additional history exists Dental Oral Exam 07/10/2024 01/07/2024, 08/26/2022 Dental Prophylaxis 07/10/2024 01/07/2024, 09/20/2022 DTaP/Tdap/Td Vaccines (2 - Td or Tdap) 12/04/2024 12/04/2014 Dental X-Ray: Bitewings 01/07/2025 01/07/2024, 08/26 Tobacco Screening 05/07/2025 05/07/2024 Dental X-Ray: Full Mouth 08/27/2025 08/26/2022 Eye Exam 04/28/2026 04/28/2024, 04/01, 04/28/2024, Additional history exists Zoster Vaccines Completed 01/11/2020, 06/11/2019 Pneumococcal Vaccine: 50+ Years Completed 11/07/2022, 02/23/2018 Pneumococcal Vaccine: Pediatrics (0 to 5 Years) and At-Risk Patients (6 to 49) Years) Completed 11/07/2022, 02/23/2018 HIB Vaccines Aged Out No longer eligi ble based on patient's age to complete this topic HPV Vaccines Aged Out No longer eligi ble based on patient's age to complete this topic IPV Vaccines Aged Out No longer eligi ble based on patient's age to complete this topic Meningococcal Vaccine Aged Out No mohamud leandro eligible based on patient's age to complete this topic RSV under 20 months Aged Out No longe r eligible based on patient's age to complete this topic Rotavirus Vaccines Aged Out No longer eligible based on patient's age to complete this topic Procedures Procedure Name Priority Date/Time Associated Diagnosis Comments Full PROPHYLAXIS - ADULT Routine 024 2:00 PM EDT Dental calculus BITEWINGS - 4 RADIOGRAPHIC IMAGES Routine 01/07/2024 2:00 PM EDT Dental calculus PERIODIC ORAL EVALUATION - ESTABLISHED PATIENT Routine 01/07/2024 2:00 PM EDT DIAGNOSTIC - DIAGNOSTIC IMAGING - INTRAORAL - COMPREHENSIVE SERIES OF RADIOGRAPHIC IMAGES Routine 08/26/2022 8:00 AM EST from Last 3 Months or Most Recently Relevant to Health Maintenance Insurance [facility]
== END 2024-08-10 15:13 | disposition home or self-care (01) ==
LOC: HO.HUSH 13:37
PROVIDERS: PCP Internal Medicine; Visit Provider Urology
DX: N40.1 Benign prostatic hyperplasia with lower urinary tract symptoms (principal); N13.8 Other obstructive and reflux uropathy; N52.9 Male erectile dysfunction, unspecified; N32.81 Overactive bladder
CPT/HCPCS: 99214

== ENCOUNTER 2024-08-13 13:29 | Outpatient (AMB) | payer OTHER, SELFPAY ==
[2024-08-13 13:35] VITALS: BP 102/76; PULSE 67; O2SAT 95; BMI 31.3
--- NOTE | 2024-08-13 13:35 | A.OFFVIS_ITS ---
Vital Signs 08/13/24 13:35 Height 5 ft 7 in Weight 199 lb 15.348 oz BMI 31.3 BP 102/76 Blood Pressure Location Lt brachial Position Sitting Pulse 67 Pulse Source Pulse Oximeter Pulse Oximetry (%) 95 Oxygen Delivery Method Room Air Intake Visit Reasons: T2DM Intake Note: Patient present today for Type 2 Diabetes Mellitus Last Diabetic eye exam: 04/2024 Last Podiatry Visit: Has upcoming apt. 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: No Accompanied by: Self / Same As Patient Allergies Penicillins [PENICILLINS] Allergy (Unknown, Verified 08/13/24 13:44) ANAPHYLAXIS Medication List - Last Reconciled 08/13/24 by Asya Loo PA-C albuterol sulfate 2.5 mg inhalation Q6H PRN atorvastatin 20 mg PO BEDTIME 90 days [bath mat As directed] bisacodyl 10 mg (2 x 5 mg) PO BEDTIME blood sugar diagnostic (TellmeGen Ultra Test strips) Use 1 test strip three times a day blood-glucose meter (TellmeGen Ultra2 Meter) As directed bupropion HCl XL 150 mg PO DAILY vebwxvcylc-urchrjmzqxovw-ntsh 50-300-40 mg (Fioricet) 1 cap PO Q4-6H PRN clonazepam 1 mg PO 1 tab in pm and 1/2 tab Qam; clotrimazole-betamethasone 1-0.05 % 1 appl topical BID cyclobenzaprine 10 mg PO TID PRN cyclosporine 0.05% 1 drp ophthalmic (eye) BID dexlansoprazole 60 mg PO DAILY diclofenac sodium 3% 1 appl topical BID PRN 30 days dicyclomine 20 mg PO BID dulaglutide (Trulicity) 0.75 mg (0.5 mL) subcut QWEEK emollient combination no.32 (EpiCeram topical emulsion, extended release) topical escitalopram oxalate (Lexapro) 10 mg PO DAILY fluticasone propionate 50 mcg/actuation (Flonase Allergy Relief) 2 sprays intranasal DAILY 30 days hydrocortisone 2.5% (Proctosol HC) 1 appl [place] BID Incruse Ellipta 62.5 mcg/actuation (umeclidinium) 1 inh PO DAILY NS ketoconazole 2% appl topical DAILY PRN lancets (Lessnouch UltraSoft 2 Lancet) Use 1 lancet three times per day day lancets (Onetouch Delica Safety Lancet) As directed 3 times per day mesalamine 2.4 grams (2 x 1.2 gram) PO DAILY montelukast 10 mg PO DAILY va-sff-pppef-B7-ducucym-fjpxrn 338-51-271-300 mcg (Centrum Silver Men) 1 tab PO DAILY oxybutynin chloride ER 10 mg PO DAILY 90 days propranolol ER 80 mg PO BID rivaroxaban (Xarelto) 20 mg PO DAILY ropinirole 1 mg PO BEDTIME [shower head As directed] simethicone (Gas Relief Extra Strength) 125 mg PO BID-QID sucralfate 20 mL PO QNOON tadalafil (Cialis) 5 mg PO DAILY 90 days triamcinolone acetonide 0.1% 1 appl topical BID-TID Ventolin HFA 90 mcg/actuation (albuterol sulfate) 2 puffs PO QID PRN NS zolpidem 10 mg PO BEDTIME PRN HPI HPI T2DM: Details: Patient is a 63-year-old male with a significant past medical history of type 2 diabetes, hyperlipidemia, fatty liver, erectile dysfunction, anxiety and depression presenting today for consultation regarding his diabetes. 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 His last A1c was 6.6. He is currently treated with trulicity 0.75 mg weekly and metformin 500 mg daily. He wants to come off of metformin if possible -His blood sugars have been great around 110-130 fasting -Jardiance caused urinary sx He has been following a grain scooper which he finds helpful modifications. He has started exercising as well which is helping control his bs. Follows with Podiatry. Denies any peripheral neuropathy. Follows with ophthalmology and denies any retinopathy. He denies any hypo or hyperglycemic events. He is not on an COLT-inhibitor/Arb. He is on atorvastatin 20 mg. Cholesterol listed below, LDL 60. No myalgias. CV: Blood pressure today in the office is 102/78. He denies any chest pain, shortness of breath or palpitations. [facility] Medical History (Updated 08/13/24 @ 13:40 by Asya Loo PA-C) Type 2 diabetes mellitus Hyperlipidemia LDL goal <70 COPD (chronic obstructive pulmonary disease) Personal history of nicotine dependence Allergic rhinitis History of COVID-19 Ulcerative colitis OAB (overactive bladder) Obesity (BMI 30-39.9) Insomnia Abdominal wall hernia Surgical History History of incisional hernia repair History of cervical spinal surgery History of colonoscopy History of appendectomy History of esophagogastroduodenoscopy (EGD) Family History Father Diabetes HTN (hypertension) Heart attack Mother Skin cancer HTN (hypertension) Diabetes Paternal Aunt Heart attack Sister Skin cancer Social History Household Members: Spouse Housing: Apartment Alcohol intake: never Patient Tobacco Use Status: Former Tobacco user Tobacco use type: Cigarette Years Smoked: (former smoker - onset 15yo, 1ppd x 36yrs, 35pyh, quit 2011) e-Cigarette/Vaping Use: Never Used Second Hand Smoke Exposure: No Substance Use Type: Marijuana service: No Current occupational status: retired Cognitive needs: No Hearing needs: No Vision needs: No Physical Exam Const Orientation/consciousness: patient oriented x3 HEENT Ears: hearing grossly normal bilaterally Neck Neck: Yes no lymphadenopathy Thyroid: Thyroid normal Carotids: no bruits Lymphatic: no lymphadenopathy noted Resp Auscultation: clear to auscultation bilaterally Cardio Rate: regular rate Rhythm: regular rhythm Heart sounds: S1 normal heart sound present and S2 normal heart sound present Peripheral pulses: dorsalis pedis present Skin General skin exam: no rashes or lesions noted Neuro General: patient oriented x3, gait normal and no focal motor deficits Extrem Other: Monofilament sensation intact bilaterally. Vibratory sensation intact bilaterally. Skin intact. General: Yes normal to inspection Results Reviewed Results Reviewed: Laboratory Tests 03/25/24 03/25/24 03/26/24 09:33 10:36 11:17 Sodium 142 Potassium 4.3 Chloride 103 Carbon Dioxide 30 H Anion Gap 13 BUN 14 Creatinine 1.11 Estimated GFR > 60 Estimat Average Glucose 134 Hgb A1c (Clinic) 6.9 H Hemoglobin A1c % 6.3 H AST 23 ALT 35 Triglycerides 85 Cholesterol 111 LDL Cholesterol, Calc 60 HDL Cholesterol 34 L Urine Creatinine 84.08 Urine Microalbumin 8.0 Microalb/Creat Ratio 9.5 12/16/24 13:56 Sodium Potassium Chloride Carbon Dioxide Anion Gap BUN Creatinine Estimated GFR Estimat Average Glucose Hgb A1c (Clinic) 6.6 H Hemoglobin A1c % AST ALT Triglycerides Cholesterol LDL Cholesterol, Calc HDL Cholesterol Urine Creatinine Urine Microalbumin Microalb/Creat Ratio Assessment & Plan Assessment & Plan (1) Controlled type 2 diabetes mellitus: Code(s): E11.9 - Type 2 diabetes mellitus without complications Category: Medical Qualifiers: Diabetes mellitus intermission coordinator insulin use: without intermission coordinator use Diabetes mellitus complication status: with unspecified complications Qualified Code(s): E11.8 - Type 2 diabetes mellitus with unspecified complications Plan: we will d/c metformin increase trulicity to 1.5 mg weekly he will add back metformin 500 mg daily if the blood sugars increase more than his current baseline (2) Dyslipidemia: Code(s): E78.5 - Hyperlipidemia, unspecified Category: Medical Plan: at goal continue atorvastatin 20 mg Medications: New dulaglutide (Trulicity) 1.5 mg (0.5 mL) subcut QWEEK 2 mL 3RF Discontinued dulaglutide (Trulicity) Discontinued Reason: Doctor's Order 0.75 mg (0.5 mL) subcut QWEEK 2 mL 3RF Coding Level of Care Code Est Pt Level 4 (78190) Diagnoses Controlled type 2 diabetes mellitus with complication, without long-term current use of insulin E11.8 Diabetes mellitus group home insulin use: without group home use Diabetes mellitus complication status: with unspecified complications Dyslipidemia E78.5
--- OUTSIDE RECORDS SUMMARY | 2024-08-13 13:39 | XMS_ITS | Encounter Summary ---
Author Organization [employer] Address [address] [place] [address] Care Team Providers Care Dress Operator Name Role Phone Unavailable Primary Care Provider Unavailabl e Encounter Details Date Type Department Care Team (Late st Contact Info) Description 07/27/2024 Telephone [facility] [address] [place] [address] Sachin Dawkins MD [address] [place] [address] Social History Tobacco Use Types Packs/Day Years [...] Description 10/27/2024 3:00 PM EDT Office Visit [facility] [address] [place] [address] Saniya Veliz, OD [address] [place] [address] documented as of this encounter Visit Diagnoses Not on filedocumented in this encounter
--- OUTSIDE RECORDS SUMMARY | 2024-08-13 13:39 | XMS_ITS ---
Author Organization [facility] Address [address] [place] [address] Care Team Providers Care Materials Planner Name Role Phone Shelli Moore MD Primary Care Provider Unavail able Juany Munson Unavailable [phone] REASON FOR VISIT seen 04/01/2024 Encounters Encounter Location Date Provider Diagnosis [address] [address] 04/06/2024 Juany Munson Plan Of Treatment Next Appt Details Provider Name:Juany luna, 09/01/2024 11:15:00 AM, [address] [place] [address], [id number], Progress Notes * Huber MUNOZoDOB: (63 yo M)Acc No.[id number]:04/06/2024 Progress Note Patient:?Kali MUNOZ Provider:?Juany Munson DPM :1960???Age:63 Y???Sex:Male Constantin e:04/06/2024 [address] [id number] Pcp:Shelli Moore MD Subjective: * Chief Complaints: * ???1. Seen 04/01/2024. * Medical History:? Objective: * Vitals:? Assessment: Plan: * Treatment: * Images: * The named appointment provid er may or may not be the originator of this progress note, and it is not deemed complete until electronically signed by the appointment provider. Sign off status: Pending * Provider:?Juany Munson DPM Date:?01/2024 Generated for Tiesha rodriguez/Pan/Kirk on:?08/13/2024 01:39 PM EST
--- OUTSIDE RECORDS SUMMARY | 2024-08-13 13:39 | XMS_ITS ---
Author Organization [facility] Address [address] [place] [address] Care Team Providers Care Composition Teacher Name Role Phone Shelli Moore MD Primary Care Provider Unavail able Juany Munson Unavailable [phone] Allergies Allergen (clinical drug ingredient) Drug/Non Drug Allergy documented on EMR Reaction Allergy Type Onset Date Status Substance with penicillin structure and antibacterial mechanism of action (substance) Penicillins skin erruptions Drug Allergy Active REASON FOR VISIT At Risk Footcare, Skin Problem, Wart(s) Medications Medication SIG (Take, Route, Frequency, Duration) Notes Start Date End Date Status clonazePAM 1 MG 1 tablet Orally Once a day Active buPROPion HCl ER (XL) 300 MG 1 tablet in the morning Orally Once a day Active Dexilant 60 MG 1 capsule Orally Onc e a day Active Clotrimazole-Betamethasone 1-0.05 % 1 application Externally Twice a day Active Bisacodyl 5 MG 1 tablet as needed O rally Once a day Active Escitalopram Oxalate 10 MG 1 tablet Oral ly Once a day Active Dicyclomine HCl 20 MG 1 tablet Orally Th ree times a day Active Mesalamine 1.2 GM 2 tablets with a ml l Orally Once a day Active Proctosol HC 2.5 % 1 application Vegetable Canner ally Twice a day Active metFORMIN HCl 500 MG 1 tablet with a ml l Orally Once a day Active oxyBUTYnin Active Incruse Ellipta 62.5 MCG/ACT 1 puff Inhalation Once a day Active Propranolol HCl 80 MG 1 tablet Orally Tw ice a day Active Tadalafil 20 MG 1 tablet as needed O rally Once a day Active Montelukast Sodium 10 MG 1 tablet Orally Once a day Active Atorvastatin Calcium 20 MG 1 tablet Oral ly Once a day for 30 day(s) Active Jardiance Active Meloxicam 7.5 MG 1 tablet Orally Once a day for 30 day(s) Active Blood Thinners Activ e Xarelto Active Gas Relief Extra Strength 125 MG Oral for 30 Days Active Albuterol Sulfate 108 (90 Base) MCG/ACT 1 puff as needed Inhalation every 4 hrs Active Ciclopirox Olamine 0.77 % 1 application Externally Twice a day for 30 days Active Social History Tobacco Use: Social History Observation Description Date Details (start date - stop date) Former Smoker NA - NA Tobacco Use/Smoking Question Answer Notes Are you a: former smoker Additional Findings: Tobacco Non-User Current no n-smoker Alcohol Screen Question Answer Notes Did you have a drink containing alcohol in the p ast year? No Points 0 Interpretation Negative Tobacco use other than smoking: Question Answer Notes Are you an other tobacco user? No Vital Signs Height 5ft 9in in 04/01/2024 Weight 199 lbs 04/01/2024 BMI 29.38 kg/m2 04/01/2024 Encounters Encounter Location Date Provider Diagnosis [facility] [address] 04/01/2024 Juany Munson Tinea pedis of both feet B35.3 ; Tinea unguium B35.1 ; Type 2 diabetes mellitus with polyneuropathy E11.42 ; Plantar wart B07.0 and Pain in left foot M79.672 Assessments Encounter Date Diagnosis (ICD Code) Assessment Notes Treatment Notes Treatment Clinical Notes Section Notes 04/01/2024 Tinea pedis of both feet (ICD-10 - B35.3) 04/01/2024 Tinea unguium (ICD-10 - B35.1) 04/01/2024 Type 2 diabetes mellitus with polyneuropathy (ICD-10 - E11.42) 04/01/2024 Plantar wart (ICD-10 - B07.0) 04/01/2024 Pain in left foot (ICD-10 - M79.672) Plan Of Treatment Next Appt Details Follow Up: 2 Months, Reason: Provider Name:Juany luna, 09/01/2024 11:15:00 AM, [address] [place] [address], [id number], Procedure Notes * Category Sub-Category Detail Notes Wart Treatment Procedure Verrucae were de brided to pin-point bleeding margins with sterile 15 surgical blade, silver nitrate chemocautery applied, recomm. immune-boosting meds such as zinc, recomm. follow up with topical chemosurgical agents, Pt defers any other forms of tx (18954) Debride Nail 6-10 Nail debridement Nail debridem ent performed extensively to reduce/remove overall nail length, girth, thickness, subungual debris, and necrotic tissue, by manual and electrical means through the use of a nail nipper and/or dremel, to more viable healthy nail plate or bed tissue 1-5. Silver nitrate used for any petechial bleeding as necessary. Patient chooses, no pharmaceutical tx (42438) Keratoma Treatment Parring or Cutting o f Benign Hyperkeratotic Lesion(s) 92744 ( More than 4 Lesions ) - The Benign hyperkeratotic lesions, as described above were pared, and/or cut utilizing a sterile 15 blade, tissue nippers, and/or dremel Progress Notes * Huber MUNOZArianaOB: (63 yo M)Acc No.[id number]:04/01/2024 Progress Note Patient:Kali Parsons Provider:?Juany Munson DPM :1960???Age:63 Y???Sex:Male Constantin e:04/01/2024 Address: [address] , [place], [place] Pcp:Shelli Moore MD Subjective: * Chief Complaints: * ???At Risk FootcareSkin Prob lemWart(s) * HPI: ???At Risk footcare:?Pt States Last PCP Visit:?Date?01/27/2024 ???Skin problems:?Pt States PCP Visit: ?DATE?01/27/2024 ?Location:?B/L .?Duration:?a few months.?Treatments:?Medication (Ciclopirox Olamine 0.77 Cream).? * ROS:?General/Constitutional:?Nausea?denies.?Vomiting?denies.?Hunger Thirst?denies.?Loss appetite?denies.?Chills?denies.?Fatigue?denies.?Fever?denies.?Night Sweats?denies.?Unexplained weight loss?denies.?Unexplained weight gain?denies.?HEENTM:?Dentures?admits.?Dizziness?denies.?Glasses/contacts?admits.?Retinopathy?de nies.?Blurred/double vision?denies.?TMJ?denies.?Discharge/drainage?denies.?Implants?denies.?Sore throat?denies.?Dental implants?admits.?Hard of hearing ?denies.?Difficulty chewing/swallowing/speaking?denies.?Nose bleeds?denies.?Sore mouth?denies.?Respiratory:?On Oxygen?denies.?Pneumonia/pleurisy?denies.?Bronchitis?denies.?Emphysema?admits.?C oughing?admits.?Cough blood?denies.?Shortness of breath?admits.?Wheezing?denies.?Cardiovascular:?Pacemaker?denies.?MVP?denies.?WPW?denies.?CHF?denies.?Heart attack?denies.?Septal defect?denies.?Rapid beat?denies.?Chest pain ?admits.?Atrial Fib.?denies.?Murmur/Palpitations?denies.?Gastrointestinal:?Hemorrhoids?admits.?Stomach/Abdominal pain?admits.?Dark blood stool?denies.?Irritable bowel ?denies.?Constipation?admits.?Diarrhea?admits.?Hematology:?Swelling?denies.?Clots?denies.?Varicose Veins?admits.?Bruising?denies.?Bleeding problem?denies.?Genitourinary:?Blood urine?denies.?Frequent/Painfu/urination/bladder control?denies.?Kidney stones?denies.?Infection (UTI)?denies.?Nephropathy?denies.?sex trans dis (STD)?denies.?Prostate?denies.?Musculoskeletal:?Hammertoes?denies.?Bunions?denies.?Back Pain?admits.?Muscle Cramps/ Resting?admits.?Muscle cramps / walking?denies.?Generalized aches and pains?admits.?Weakness?denies.?Integ.:?Gant?denies.?Scars?admits.?Corns/calluses?admits.?Ingrown nails?admits.?Painful nails?admits.?Open Sores?denies.?Rashes?admits.?Neurologic:?Difficulty sleeping?denies.?Brain disorder?denies.?Numbness?denies.?Balance trouble?denies.?Confusion?denies.?Fainting/blackouts?denies.?Tingling?denies.?Tr emors?denies.? * Medical History:? * Surgical History:?cervical ( spine?) surgery 2017hernia 2019-2020peritonitis 2019 * Hospitalization/Major Diagno stic Procedure:?No Hospitalization History. * Family History:?Mother: dece ased, skin cancer, poor circulation, diagnosed with Diabetic - NIDDM.?Father: , diagnosed with Family history of arthritis, Diabetic - NIDDM, Unspecified essential hypertension, Unspecified heart disease.? * Social History:?Tobacco Use:?Tobacco Use/Smoking?Are you a:?former smoker ?Additional Findings: Tobacco Non-User?Current non-smoker ?Tobacco use other than smoking?Are you an other tobacco user??No ???Drugs/Alcohol:?Drugs?Have you used drugs other than those for medical reasons in the past 12 months??Yes ?Marijuana??Yes Vaping Occassionally ?Alcohol Screen?Did you have a drink containing alcohol in the past year??No ?Points?0 ?Interpretation?Negative ???Miscellaneous:?Caffeine: yes, frequency: 1 cup per day. ?Children: yes. ?no Exercise. ?Marital status: single. ?Occupation: Retired. * Medications:?TakingBlood Thi nners Xarelto Jardiance Meloxicam 7.5 MG Tablet 1 tablet Orally Once a dayAtorvastatin Calcium 20 MG Tablet 1 tablet Orally Once a dayTadalafil 20 MG Tablet 1 tablet as needed Orally Once a dayIncruse Ellipta 62.5 MCG/ACT Aerosol Powder Breath Activated 1 puff Inhalation Once a dayPropranolol HCl 80 MG Tablet 1 tablet Orally Twice a dayoxyBUTYnin Montelukast Sodium 10 MG Tablet 1 tablet Orally Once a daymetFORMIN HCl 500 MG Tablet 1 tablet with a meal Orally Once a dayMesalamine 1.2 GM Tablet Delayed Release 2 tablets with a meal Orally Once a dayProctosol HC 2.5 % Cream 1 application Externally Twice a dayEscitalopram Oxalate 10 MG Tablet 1 tablet Orally Once a dayDicyclomine HCl 20 MG Tablet 1 tablet Orally Three times a dayDexilant 60 MG Capsule Delayed Release 1 capsule Orally Once a dayClotrimazole-Betamethasone 1-0.05 % Cream 1 application Externally Twice a dayclonazePAM 1 MG Tablet 1 tablet Orally Once a daybuPROPion HCl ER (XL) 300 MG Tablet Extended Release 24 Hour 1 tablet in the morning Orally Once a dayBisacodyl 5 MG Tablet Delayed Release 1 tablet as needed Orally Once a dayAlbuterol Sulfate 108 (90 Base) MCG/ACT Aerosol Powder Breath Activated 1 puff as needed Inhalation every 4 hrsCiclopirox Olamine 0.77 % Cream 1 application Externally Twice a dayGas Relief Extra Strength 125 MG Capsule Oral Medication List reviewed and reconciled with the patientTaking Blood Thinners Taking Xarelto Taking Jardiance Taking Meloxicam 7.5 MG Tablet 1 tablet Orally Once a dayTaking Atorvastatin Calcium 20 MG Tablet 1 tablet Orally Once a dayTaking Tadalafil 20 MG Tablet 1 tablet as needed Orally Once a dayTaking Incruse Ellipta 62.5 MCG/ACT Aerosol Powder Breath Activated 1 puff Inhalation Once a dayTaking Propranolol HCl 80 MG Tablet 1 tablet Orally Twice a dayTaking oxyBUTYnin Taking Montelukast Sodium 10 MG Tablet 1 tablet Orally Once a dayTaking metFORMIN HCl 500 MG Tablet 1 tablet with a meal Orally Once a dayTaking Mesalamine 1.2 GM Tablet Delayed Release 2 tablets with a meal Orally Once a dayTaking Proctosol HC 2.5 % Cream 1 application Externally Twice a dayTaking Escitalopram Oxalate 10 MG Tablet 1 tablet Orally Once a dayTaking Dicyclomine HCl 20 MG Tablet 1 tablet Orally Three times a dayTaking Dexilant 60 MG Capsule Delayed Release 1 capsule Orally Once a dayTaking Clotrimazole-Betamethasone 1-0.05 % Cream 1 application Externally Twice a dayTaking clonazePAM 1 MG Tablet 1 tablet Orally Once a dayTaking buPROPion HCl ER (XL) 300 MG Tablet Extended Release 24 Hour 1 tablet in the morning Orally Once a dayTaking Bisacodyl 5 MG Tablet Delayed Release 1 tablet as needed Orally Once a dayTaking Albuterol Sulfate 108 (90 Base) MCG/ACT Aerosol Powder Breath Activated 1 puff as needed Inhalation every 4 hrsTaking Ciclopirox Olamine 0.77 % Cream 1 application Externally Twice a dayTaking Gas Relief Extra Strength 125 MG Capsule Oral Medication List reviewed and reconciled with the patient * Allergies:?Penicillins: skin erruptionsyes[Allergies Verified] Objective: * Vitals:?Ht: 5ft 9in, Wt:199, BMI:29.38, Shoe size: 12, BS: 130, Ht-cm: 175.26 cm, Wt-k.26 kg. * ???Past Orders: ???Lab:HEMOGLOBIN A1C (GLYCO HEMOGLOBIN) (Order Date - 01/27/2024) (Collection Date - 01/27/2024) ? Value Reference Range ?TOTAL HEMOGLOBIN (HGBA1C) 6.7 * Examination: ???Ophthalmology Referral: ?DIABETES EYE EXAM?Neurological: ?SENSORY:? Neurological exam demonstrates, reduced light touch sensation, reduced sharp/dull pin prick discrimination , B/L, 5.07 monofilament test performed at plantar aspects of 5 varied sites per foot shows sensation, reduced , B/L.?Nails: ?NAILS are:?Elongated, overgrown, dystrophic, lytic, greater than 3mm thick, discolored and friable with crumbly malodorous subungual debris , with dull to no pain on palpation due to neuropathy , 1-5 B/L.?Dermatologic: ?SKIN FINDINGS:?Skin exam reveals Keratotic lesion(s) located at , TA, T5, heels b/l, sub met 1 B/L, Skin STILL shows sign(s) of, erythema, scaling, in a moccasin fashion, no fissure(s) present, B/L.?VERRUCA:?Reveals a Single , multi-loculated , mosaic-patterned, round, raised, flat-topped, petechial bleeding papule(s), with cauliflower appearance and interruption of skin lines, pain to lateral compression, and size estimated at 5 mm diameter , plantar Forefoot , LEFT.?Vascular: ?DP PULSES(B):?3/4, B/L.?PT PULSES(B):?3/4, B/L.?CAPILLARY FILL TIME:?immediate, all digits, B/L.?TROPHIC CONDITION-TEXTURE/ELASTICITY/TURGOR/HAIR GROWTH(B):?normal, B/L.?TEMPERTURE GRADIENT(C):?normal, warm to cool, proximal to distal, B/L, B/L.?PIGMENTATION:?normal, B/L.?EDEMA(C):?absent, B/L.?General Examination: ?GENERAL APPEARANCE:?Reveals a pleasant, alert, well nourished, well- developed, well hydrated individual, who demonstrates proper attention to hygiene/body habitus, and is in no acute distress, Pt serves as own historian for office visit today.?ORIENTED:?person, place, and time.?Orthopedic: ?MUSCLE STRENGTH:?5/5 all groups in a symmetrical fashion, B/L.? Assessment: * Assessment: 1.?Tinea pedis of both feet - B35.3 (Primary), Acute problem, Uncomplicated (3)?2.?Tinea unguium - B35.1?3.?Type 2 diabetes mellitus with polyneuropathy - E11.42?4.?Plantar wart - B07.0?5.?Pain in left foot - M79.672? Plan: * Treatment: * Procedures:?Debride Nail 6-10:?Nail debridement?Nail debridement performed extensively to reduce/remove overall nail length, girth, thickness, subungual debris, and necrotic tissue, by manual and electrical means through the use of a nail nipper and/or dremel, to more viable healthy nail plate or bed tissue 1-5. Silver nitrate used for any petechial bleeding as necessary. Patient chooses, no pharmaceutical tx (81099).?Keratoma Treatment:?Parring or Cutting of Benign Hyperkeratotic Lesion(s)?65749 ( More than 4 Lesions ) - The Benign hyperkeratotic lesions, as described above were pared, and/or cut utilizing a sterile 15 blade, tissue nippers, and/or dremel.?Wart Treatment:?Procedure?Verrucae were debrided to pin-point bleeding margins with sterile 15 surgical blade, silver nitrate chemocautery applied, recomm. immune-boosting meds such as zinc, recomm. follow up with topical chemosurgical agents, Pt defers any other forms of tx (62989).? * Procedure Codes:?44912 DEBRI DE NAIL, 6 OR MORE, Modifiers: XS 18193 Wart Destruction, 1-14, Modifiers: XS 86431 TRIM SKIN LESIONS, OVER 4, Modifiers: XS * Preventive Medicine:? ??Counseling:?Discussion:?-13: Office or other outpatient visit for the evaluation and management of an established patient, which required a medically appropriate history and/or examination and LOW level of DECISION MAKING for: 1 STABLE ACUTE UNCOMPLICATED PROBLEM, 2 OR MORE MINOR PROBLEMS, OR 1 STABLE CHRONIC PROBLEM, THAT POSE(S) A LOW RISK FOR MORBIDITY/MORTALITY. The visit on the day of the encounter encompassed interpreting the data and educating the patient as to the nature of their condition, treatment options available according to their individual PMH, meds, allergies, and overall health/living conditions, as well as any potential risks or complications that may occur from a failure to adhere to, and participate in, the recommended course of therapy. The discussion included a complete verbal, and/or written explanation of the examination results, any x-rays taken, the proposed diagnosis, and outline of the treatment plan. A schedule for future care needs was also explained. The patient verbalized an understanding of the instructions at this time and agreed to be an active participant in their treatment. If the patient should think of any questions or concerns after the visit, I have encouraged the patient to call the office.?Tinea Pedis:?The patient was counseled on the diagnosis, potential etiologies, and treatment options for their skin condition. We discussed the risks and benefits of each option from performing no treatment, to utilizing OTC topical skin creams, prescription topical creams, customized compounded topical medications, and, if necessary, to utilize oral antifungal therapy. We discussed the advantages and disadvantages of each possible treatment and importance for adherence to all the recommended therapies for optimum success and avoid potential complications such as open sore/infection/possible hospitalization. We discussed the potential effectiveness of each topical preparation as well as each ones possible side effects and/or patient medication interactions if oral therapy is selected. Patient questions re: the advantages and disadvantages of each treatment choice, medication use/dosage, successful outcomes, and application consistency were reviewed and the patient verbalized that all answers were clearly understood. The patient was told they can help alleviate symptoms by utilizing moisture absorbant innersoles with activated charcoal and baking soda, applying antifungal sprays daily, aerating toe web spaces at night by putting cotton or lambs wool between the toes, alternating shoe gear daily if possible so they can dry out, changing socks at least once during the day, wearing well-ventilated shoes or sandals..? * Follow Up:?2 Months * Images: * Sign off status: Completed true * Provider:?Juany Munson, DARREN Date:?08/2023 Generated for Tiesha rodriguez/Pan/Kirk on:?08/13/2024 01:39 PM EST History and Physical Notes * HPI (History of Present Illness) Category Sub-Category Detail Notes Category Not es Skin problems Location: B/L Duration: a few months Treatments: Medication (Ciclopir ox Olamine 0.77 Cream) Pt States PCP Visit: DATE: 01/27/2024 At Risk footcare Pt States Last PCP Visit: Date: 4 Examination Category Sub-Category Detail Notes Category Not es Neurological SENSORY: Neurological exa m demonstrates, reduced light touch sensation, reduced sharp/dull pin prick discrimination , B/L, 5.07 monofilament test performed at plantar aspects of 5 varied sites per foot shows sensation, reduced , B/L Dermatologic SKIN FINDINGS: Skin exam reveal s Keratotic lesion(s) located at , TA, T5, heels b/l, sub met 1 B/L, Skin STILL shows sign(s) of, erythema, scaling, in a moccasin fashion, no fissure(s) present, B/L VERRUCA: Reveals a Single , m ulti-loculated , mosaic-patterned, round, raised, flat-topped, petechial bleeding papule(s), with cauliflower appearance and interruption of skin lines, pain to lateral compression, and size estimated at 5 mm diameter , plantar Forefoot , LEFT Orthopedic MUSCLE STRENGTH: 5/5 all groups in a symm etrical fashion, B/L General Examination GENERAL APPEARANCE: Reveals a pleasant, alert, well nourished, well-developed, well hydrated individual, who demonstrates proper attention to hygiene/body habitus, and is in no acute distress, Pt serves as own historian for office visit today ORIENTED: person, place, and t binu Ophthalmology Referral DIABETES EYE EXAM Diabetic Retinopa thy Screening:: No Findings of Diabetic Eye Exam:: no retin opathy Vascular DP PULSES (B): 3/4, B/L PT PULSES (B): 3/4, B/L CAPILLARY FILL TIME: immediate, all digi ts, B/L TEMPERTURE GRADIENT (C): normal, warm to cool, proximal to distal, B/L, B/L TROPHIC CONDITION-TEXTURE/ELASTICITY/TURGOR/HAIR GROWTH (B): normal, B/L EDEMA (C): absent, B/L PIGMENTATION: normal, B/L Nails NAILS are: Elongated, overg rown, dystrophic, lytic, greater than 3mm thick, discolored and friable with crumbly malodorous subungual debris , with dull to no pain on palpation due to neuropathy , 1-5 B/L
--- OUTSIDE RECORDS SUMMARY | 2024-08-13 13:39 | XMS_ITS | Encounter Summary ---
Author Organization [employer] Address [address] [place] [address] Care Team Providers Care Tuna Purse Seiner Name Role Phone Unavailable Primary Care Provider Unavailabl e Encounter Details Date Type Department Care Team (Late Contact Info) Description 10/08/2022 Abstract [facility] [address] [place] [address] Raymundo, Erum [address] [place] [address] Social History Tobacco Use Types Packs/Day Years [...] Description 10/27/2024 3:00 PM EDT Office Visit [facility] [address] [place] [address] Saniya Veliz, OD [address] [place] [address] documented as of this encounter Visit Diagnoses Not on filedocumented in this encounter
--- OUTSIDE RECORDS SUMMARY | 2024-08-13 13:39 | XMS_ITS | Clinical Summary ---
Author Organization [employer] Address [address] [place] [address] Care Team Providers Care Double Spindle Shaper Operator Name Role Phone Unavailable Primary Care [...] daily. 3 Active Lancets (OneTouch Delica Plus [id number]) misc USE ONCE DAILY 3 Active OneTouch [...] Open fracture of tooth 02/13/2024 Fractured dental anglican with loss of materi al 02/02/2024 Diabetes [...] Type Department Care Team Description 07/27/2024 Telephone [facility] [address] [place] [phone] Sachin Dawkins MD from Last 3 [...] 10/27/2024 3:00 PM EDT Office Visit [facility] [address] [place] [address] Jose Alfredo, Saniya, OD [address] [place] [address] Health Maintenance Due Date Last Done Comments [...] ESTABLISHED PATIENT Routine 01/07/2024 2:00 PM EDT INTRAORAL - COMPLETE SERIES OF RADIOGRAPHIC IMAGES Routine 08/26/2022 8:00 AM EST from Last 3 Months or Most Recently Relevant to Health Maintenance Insurance [facility]
--- OUTSIDE RECORDS SUMMARY | 2024-08-13 13:39 | XMS_ITS | Patient Health Record ---
Author Organization [facility] Address [address] [place] [address] Care Team Providers Care Soda Drier Feeder Name Role Phone Shelli Moore MD Primary Care Provider Unavail able Juany Munson Unavailable [phone] Allergies Allergen (clinical drug ingredient) Drug/Non Drug Allergy documented on EMR Reaction Allergy Type Onset Date Status Substance with penicillin structure and antibacterial mechanism of action (substance) Penicillins skin erruptions Drug Allergy Active Results Component Value Reference Range Notes HEMOGLOBIN A1C (GLYCOHEMOGLO BIN) Reviewed date:01/28/2024 11:02:51 AM Interpretation: Performing Lab: Notes/Report: TOTAL HEMOGLOBIN (HGBA1C) 6.7 HEMOGLOBIN A1C (GLYCOHEMOGLO BIN) Reviewed date:06/15/2024 10:12:18 AM Interpretation: Performing Lab: Notes/Report: TOTAL HEMOGLOBIN (HGBA1C) 6.6 Reason For Referral No Information Medications Medication SIG (Take, Route, Frequency, Duration) Notes Start Date End Date Status Incruse Ellipta 62.5 MCG/ACT 1 puff Inhalation Once a day Active buPROPion HCl ER (XL) 300 MG 1 tablet in the morning Orally Once a day Active Propranolol HCl 80 MG 1 tablet Orally Tw ice a day Active Atorvastatin Calcium 20 MG 1 tablet Orally Once a day for 30 day(s) Active Dexilant 60 MG 1 capsule Orally Onc e a day Active Tadalafil 20 MG 1 tablet as needed Orally Once a day PRN Active clonazePAM 1 MG 1 tablet Orally Once a day Active Xarelto Active Escitalopram Oxalate 10 MG 1 tablet Orally Once a day Active Meloxicam 7.5 MG 1 tablet Orally Once a day for 30 day(s) PRN Active Dicyclomine HCl 20 MG 1 tablet Orally Th ree times a day Active Trulicity 0.75 MG/0.5ML as directed Subcutaneous Active Mesalamine 1.2 GM 2 tablets with a ml l Orally Once a day Active Jardiance Not-Taking Blood Thinners Activ e Proctosol HC 2.5 % 1 application [employer]ist ally Twice a day Active Clotrimazole-Betamethaso ne 1-0.05 % 1 application Externally Twice a day Not-Taking Montelukast Sodium 10 MG 1 tablet Orally Once a day Active Ciclopirox Olamine 0.77 % 1 application Externally Twice a day for 30 days Active metFORMIN HCl 500 MG 1 tablet with a ml l Orally Once a day Active Gas Relief Extra Strength 125 MG Oral for 30 Days Active Bisacodyl 5 MG 1 tablet as needed Orally Once a day PRN Active oxyBUTYnin Active Albuterol Sulfate 108 (90 Base) MCG/ACT 1 puff as needed Inhalation every 4 hrs Active Immunizations Vaccine Route Administration Date Status Comme nts Influenza Unknown 06/09/2023 Administered Social History Tobacco Use: Social History Observation [...] Are you an other tobacco user? No Problems Problem Type SNOMED Code ICD Code Onset Dates Problem Status W/U Status Risk Notes Problem 83125479 Plantar wart (B07.0) Active confirmed Problem 29045355 Type 2 diabetes mellitus with polyneuropathy (E11.42) Active confirmed Vital Signs Blood pressure diastolic 78 mm Hg 06/15/2024 Height 5ft9in in 06/15/2024 Blood pressure systolic 118 mm Hg 06/15/2024 Weight 202 lbs 06/15/2024 BMI 29.83 kg/m2 06/15/2024 Encounters Encounter Location Date Provider Diagnosis [facility] [address] [place] [address] 08/26/2023 Juany Perica Tinea pedis of both feet B35.3 ; Tinea unguium B35.1 ; Type 2 diabetes mellitus with polyneuropathy E11.42 ; Plantar wart B07.0 and Pain in left foot M79.[address] [address] 11/04/2023 Juany Perica Tinea pedis of both feet B35.3 ; Tinea unguium B35.1 ; Type 2 diabetes mellitus with polyneuropathy E11.42 ; Plantar wart B07.0 and Pain in left foot M79.[address] [address] 01/28/2024 Juany Perica Tinea pedis of both feet B35.3 ; Tinea unguium B35.1 ; Type 2 diabetes mellitus with polyneuropathy E11.42 ; Plantar wart B07.0 and Pain in left foot M79.[address] [address] 04/01/2024 Juany Perica Tinea pedis of both feet B35.3 ; Tinea unguium B35.1 ; Type 2 diabetes mellitus with polyneuropathy E11.42 ; Plantar wart B07.0 and Pain in left foot M79.[address] [address] 06/15/2024 Juany Perica Tinea pedis of both feet B35.3 ; Tinea unguium B35.1 ; Type 2 diabetes mellitus with polyneuropathy E11.42 ; Plantar wart B07.0 and Pain in left foot M79.[address] [address] 01/14/2024 Juany Munson Assessments Encounter Date Diagnosis (ICD Code) Assessment Notes Treatment Notes Treatment Clinical Notes Section Notes 08/26/2023 Tinea pedis of both feet (ICD-10 - B35.3) 11/04/2023 Tinea pedis of both feet (ICD-10 - B35.3) 01/28/2024 Tinea pedis of both feet (ICD-10 - B35.3) 04/01/2024 Tinea pedis of both feet (ICD-10 - B35.3) 06/15/2024 Tinea unguium (ICD-10 - B35.1) 06/15/2024 Tinea pedis of both feet (ICD-10 - B35.3) 06/15/2024 Type 2 diabetes mellitus with polyneuropathy (ICD-10 - E11.42) 01/28/2024 Tinea unguium (ICD-10 - B35.1) 04/01/2024 Tinea unguium (ICD-10 - B35.1) 11/04/2023 Tinea unguium (ICD-10 - B35.1) 08/26/2023 Tinea unguium (ICD-10 - B35.1) 08/26/2023 Type 2 diabetes mellitus with polyneuropathy (ICD-10 - E11.42) 11/04/2023 Type 2 diabetes mellitus with polyneuropathy (ICD-10 - E11.42) 01/28/2024 Type 2 diabetes mellitus with polyneuropathy (ICD-10 - E11.42) 04/01/2024 Type 2 diabetes mellitus with polyneuropathy (ICD-10 - E11.42) 06/15/2024 Plantar wart (ICD-10 - B07.0) 06/15/2024 Pain in left foot (ICD-10 - M79.672) 04/01/2024 Plantar wart (ICD-10 - B07.0) 01/28/2024 Plantar wart (ICD-10 - B07.0) 11/04/2023 Plantar wart (ICD-10 - B07.0) 08/26/2023 Plantar wart (ICD-10 - B07.0) 08/26/2023 Pain in left foot (ICD-10 - M79.672) 11/04/2023 Pain in left foot (ICD-10 - M79.672) 01/28/2024 Pain in left foot (ICD-10 - M79.672) 04/01/2024 Pain in left foot (ICD-10 - M79.672) Plan Of Treatment Next Appt Details Provider Name:Juany luna, 09/01/2024 11:15:00 AM, [address] [place] [address], [phone], Insurance Providers Payer Name Payer Address Payer Phone Subscriber Number Group Number Insured Name Patient Relationship to Insured Coverage Start Date Coverage End Date [facility] [employer] Claims [address] [place] [id number] Kali Munoz Self - patient is the insured Medical (General) History Medical History History ICD Code Anxiety Back,Hip,and Knee pain covid-19 Depression Diabetic Headaches/Migraines Hepatitis Hiatal hernia Lung disease Psychiatric disorder Reflux ( GERD) sinusitis COPD Colitis Chicken pox Cholesterol Surgical History Surgery Date(Month/Year) cervical (spine?) surgery 2017 hernia [phone] peritonitis 2019
--- OUTSIDE RECORDS SUMMARY | 2024-08-13 13:39 | XMS_ITS ---
Author Organization [facility] Address [address] [place] [address] Care Team Providers Care Marketing Proposal Specialist Name Role Phone Shelli Moore MD Primary Care Provider Unavail able Juany Munson Unavailable [phone] Allergies Allergen (clinical drug ingredient) Drug/Non Drug Allergy documented on EMR Reaction Allergy Type Onset Date Status Substance with penicillin structure and antibacterial mechanism of action (substance) Penicillins skin erruptions Drug Allergy Active REASON FOR VISIT At Risk Footcare, Skin Problem, Wart(s) Medications Medication SIG (Take, Route, Frequency, Duration) Notes Start Date End Date Status Ciclopirox Olamine 0.77 % 1 application Externally Twice a day for 30 days Active Gas Relief Extra Strength 125 MG Oral for 30 Days Active Albuterol Sulfate 108 (90 Base) MCG/ACT 1 puff as needed Inhalation every 4 hrs Active Jardiance Not-Taking Clotrimazole-Betamethaso ne 1-0.05 % 1 application Externally Twice a day Not-Taking Bisacodyl 5 MG 1 tablet as needed Orally Once a day PRN Active buPROPion HCl ER (XL) 300 MG 1 tablet in the morning Orally Once a day Active Dexilant 60 MG 1 capsule Orally Onc e a day Active clonazePAM 1 MG 1 tablet Orally Once a day Active Dicyclomine HCl 20 MG 1 tablet Orally Th ree times a day Active Montelukast Sodium 10 MG 1 tablet Orally Once a day Active metFORMIN HCl 500 MG 1 tablet with a ml l Orally Once a day Active Escitalopram Oxalate 10 MG 1 tablet Orally Once a day Active Mesalamine 1.2 GM 2 tablets with a ml l Orally Once a day Active Proctosol HC 2.5 % 1 application Creative Services Director ally Twice a day Active oxyBUTYnin Active Incruse Ellipta 62.5 MCG/ACT 1 puff Inhalation Once a day Active Propranolol HCl 80 MG 1 tablet Orally Tw ice a day Active Atorvastatin Calcium 20 MG 1 tablet Orally Once a day for 30 day(s) Active Tadalafil 20 MG 1 tablet as needed Orally Once a day PRN Active Xarelto Active Meloxicam 7.5 MG 1 tablet Orally Once a day for 30 day(s) PRN Active Trulicity 0.75 MG/0.5ML as directed Subcutaneous Active Blood Thinners Activ e Social History Tobacco Use: Social History Observation Description Date Details (start date - stop date) Former Smoker NA - NA Tobacco Use/Smoking Question Answer Notes Are you a: former smoker Additional Findings: Tobacco Non-User Current no n-smoker Tobacco use other than smoking: Question Answer Notes Are you an other tobacco user? No Vital Signs Height 5ft9in in 06/15/2024 Weight 202 lbs 06/15/2024 BMI 29.83 kg/m2 06/15/2024 Blood pressure systolic 118 mm Hg 06/15/20 24 Blood pressure diastolic 78 mm Hg 024 Encounters Encounter Location Date Provider Diagnosis [facility] [address] [address] 06/15/2024 Juany Munson Tinea pedis of both feet B35.3 ; Tinea unguium B35.1 ; Type 2 diabetes mellitus with polyneuropathy E11.42 ; Plantar wart B07.0 and Pain in left foot M79.672 Assessments Encounter Date Diagnosis (ICD Code) Assessment Notes Treatment Notes Treatment Clinical Notes Section Notes 06/15/2024 Tinea pedis of both feet (ICD-10 - B35.3) 06/15/2024 Tinea unguium (ICD-10 - B35.1) 06/15/2024 Type 2 diabetes mellitus with polyneuropathy (ICD-10 - E11.42) 06/15/2024 Plantar wart (ICD-10 - B07.0) 06/15/2024 Pain in left foot (ICD-10 - M79.672) Plan Of Treatment Next Appt Details Follow Up: 2 Months, Reason: Provider Name:Juany Luna Linh luna, 09/01/2024 11:15:00 AM, [address] [place], [address], Procedure Notes * Category Sub-Category Detail Notes Wart Treatment Procedure Verrucae were de brided to pin-point bleeding margins with sterile 15 surgical blade, silver nitrate chemocautery applied, recomm. immune-boosting meds such as zinc, recomm. follow up with topical chemosurgical agents, Pt defers any other forms of tx (69278) Debride Nail 6-10 Nail debridement Due to the cl inical pathology outlined in the exam findings, performance of this nail treatment is medically necessary as its management by an unskilled/untrained nonprofessional would put this patients foot and overall health at risk. Therefore, debridement to affected nail(s), as described in exam ( TA, T1, T2, T3, T4, T5, T6, T7, T8, T9), was performed exclusively by the physician of record to reduce/remove overall nail length, girth, thickness, subungual debris, and necrotic tissue, by manual and/or electrical means through the use of a nail nipper and/or dremel-type internal grinder tender, to a more viable healthy nail plate or bed tissue 6-10 nails in total. Silver nitrate was used for any petechial bleeding as necessary. Definitive antifungal treatment options, both pharmaceutical and surgical, have been reviewed and discussed with the patient. The patient solely prefers the use of intermittent/as needed professional debridement services for their nail condition and understands the need for additional periodic treatments to maintain effectiveness in symptomatic relief - 82076 Keratoma Treatment Parring or Cutting o f Benign Hyperkeratotic Lesion(s) (-57) More than 4 Lesions - Due to the at risk nature of the patients medical condition as documented in the exam findings, performance of this keratoderma treatment is medically necessary as its management by an unskilled/untrained nonprofessional would put this patients foot and overall health at risk. Therefore, the benign hyperkeratotic lesions, ( 6) in total, locations as stated and described in the exam ( TA, T5, heels b/l, sub met 1 B/L), were pared, and/or cut utilizing a sterile 15 blade, tissue nippers, and/or power dremel instrumentation by the physician of record - 73994 Progress Notes * Viridiana MUNOZOB: (63 yo M)Acc No.[id number]:06/15/2024 Progress Note Patient:Kali RAMIREZ Provider:?Juany Munson DPM :1960???Age:63 Y???Sex:Male Constantin e:06/15/2024 Address: [address] , [place], [id number] Pcp:Shelli Moore MD Subjective: * Chief Complaints: * ???At Risk FootcareSkin Prob lemWart(s) * HPI: ???At Risk footcare:?Pt States Last PCP Visit:?Date?01/27/2024 ???Skin problems:?Pt States PCP Visit: ?DATE?01/27/2024 ?Location:?B/L .?Duration:?a few months.?Treatments:?Medication (Ciclopirox Olamine 0.77 Cream).? * ROS:?General/Constitutional:?Nausea?denies.?Vomiting?denies.?Hunger Thirst?denies.?Loss appetite?denies.?Chills?denies.?Fatigue?denies.?Fever?denies.?Night Sweats?denies.?Unexplained weight loss?denies.?Unexplained weight gain?denies.?HEENTM:?Dentures?admits.?Dizziness?denies.?Glasses/contacts?admits.?Retinopathy?den ies.?Blurred/double vision?denies.?TMJ?denies.?Discharge/drainage?denies.?Implants?denies.?Sore throat?denies.?Dental implants?admits.?Hard of hearing ?denies.?Difficulty chewing/swallowing/speaking?denies.?Nose bleeds?denies.?Sore mouth?denies.?Respiratory:?On O xygen?denies.?Pneumonia/pleurisy?denies.?Bronchitis?denies.?Emphysema?admits.?Co ughing?admits.?Cough blood?denies.?Shortness of breath?admits.?Wheezing?denies.?Cardiovascular:?Pacemaker?denies.?MVP?denies.?WPW?denies.?CHF?denies.?Heart attack?denies.?Septal defect?denies.?Rapid beat?denies.?Chest pain ?admits.?Atrial Fib.?denies.?Murmur/Palpitations?denies.?Gastrointestinal:?Hemorrhoids?admits.?Stomach/Abdominal pain?admits.?Dark blood stool?denies.?Irritable bowel ?denies.?Constipation?admits.?Diarrhea?admits.?Hematology:?Swelling?denies.?Clots?denies.?Varicose Veins?admits.?Bruising?denies.?Bleeding problem?denies.?Genitourinary:?Blood urine?denies.?Frequent/Painfu/urination/bladder control?denies.?Kidney stones?denies.?Infection (UTI)?denies.?Nephropathy?denies.?sex trans dis (STD)?denies.?Prostate?denies.?Musculoskeletal:?Hammertoes?denies.?Bunions?denies.?Back Pain?admits.?Muscle Cramps/ Resting?admits.?Muscle cramps / walking?denies.?Generalized aches and pains?admits.?Weakness?denies.?Integ.:?Gant?denies.?Scars?admits.?Corns/calluses?admits.?Ingrown nails?admits.?Painful nails?admits.?Open Sores?denies.?Rashes?admits.?Neurologic:?Difficulty sleeping?denies.?Brain disorder?denies.?Numbness?denies.?Balance t rouble?denies.?Confusion?denies.?Fainting/blackouts?denies.?Tingling?denies.?Omar mors?denies.? * Medical History:? * Surgical History:?cervical ( spine?) surgery 2017hernia 2018-2019peritonitis 2019 * Hospitalization/Major Diagno stic Procedure:?Denies Past Hospitalization * Family History:?Mother: dece ased, skin cancer, poor circulation, diagnosed with Diabetic - NIDDM.?Father: , diagnosed with Diabetic - NIDDM, Unspecified essential hypertension, Unspecified heart disease, Family history of arthritis.? * Social History:?Tobacco Use:?Tobacco Use/Smoking?Are you a:?former smoker ?Additional Findings: Tobacco Non-User?Current non-smoker ?Tobacco use other than smoking?Are you an other tobacco user??No * Medications:?TakingTrulicity 0.75 MG/0.5ML Solution Auto-injector as directed Subcutaneous Blood Thinners Xarelto Meloxicam 7.5 MG Tablet 1 tablet Orally Once a day , Notes to Pharmacist: PRNAtorvastatin Calcium 20 MG Tablet 1 tablet Orally Once a day Tadalafil 20 MG Tablet 1 tablet as needed Orally Once a day , Notes to Pharmacist: PRNIncruse Ellipta 62.5 MCG/ACT Aerosol Powder Breath Activated 1 puff Inhalation Once a day Propranolol HCl 80 MG Tablet 1 tablet Orally Twice a day oxyBUTYnin Montelukast Sodium 10 MG Tablet 1 tablet Orally Once a day metFORMIN HCl 500 MG Tablet 1 tablet with a meal Orally Once a day Mesalamine 1.2 GM Tablet Delayed Release 2 tablets with a meal Orally Once a day Proctosol HC 2.5 % Cream 1 application Externally Twice a day Escitalopram Oxalate 10 MG Tablet 1 tablet Orally Once a day Dicyclomine HCl 20 MG Tablet 1 tablet Orally Three times a day Dexilant 60 MG Capsule Delayed Release 1 capsule Orally Once a day clonazePAM 1 MG Tablet 1 tablet Orally Once a day buPROPion HCl ER (XL) 300 MG Tablet Extended Release 24 Hour 1 tablet in the morning Orally Once a day Bisacodyl 5 MG Tablet Delayed Release 1 tablet as needed Orally Once a day , Notes to Pharmacist: PRNAlbuterol Sulfate 108 (90 Base) MCG/ACT Aerosol Powder Breath Activated 1 puff as needed Inhalation every 4 hrs Ciclopirox Olamine 0.77 % Cream 1 application Externally Twice a day Gas Relief Extra Strength 125 MG Capsule Oral Taking Trulicity 0.75 MG/0.5ML Solution Auto-injector as directed Subcutaneous Taking Blood Thinners Taking Xarelto Taking Meloxicam 7.5 MG Tablet 1 tablet Orally Once a day , Notes to Pharmacist: PRNTaking Atorvastatin Calcium 20 MG Tablet 1 tablet Orally Once a day Taking Tadalafil 20 MG Tablet 1 tablet as needed Orally Once a day , Notes to Pharmacist: PRNTaking Incruse Ellipta 62.5 MCG/ACT Aerosol Powder Breath Activated 1 puff Inhalation Once a day Taking Propranolol HCl 80 MG Tablet 1 tablet Orally Twice a day Taking oxyBUTYnin Taking Montelukast Sodium 10 MG Tablet 1 tablet Orally Once a day Taking metFORMIN HCl 500 MG Tablet 1 tablet with a meal Orally Once a day Taking Mesalamine 1.2 GM Tablet Delayed Release 2 tablets with a meal Orally Once a day Taking Proctosol HC 2.5 % Cream 1 application Externally Twice a day Taking Escitalopram Oxalate 10 MG Tablet 1 tablet Orally Once a day Taking Dicyclomine HCl 20 MG Tablet 1 tablet Orally Three times a day Taking Dexilant 60 MG Capsule Delayed Release 1 capsule Orally Once a day Taking clonazePAM 1 MG Tablet 1 tablet Orally Once a day Taking buPROPion HCl ER (XL) 300 MG Tablet Extended Release 24 Hour 1 tablet in the morning Orally Once a day Taking Bisacodyl 5 MG Tablet Delayed Release 1 tablet as needed Orally Once a day , Notes to Pharmacist: PRNTaking Albuterol Sulfate 108 (90 Base) MCG/ACT Aerosol Powder Breath Activated 1 puff as needed Inhalation every 4 hrs Taking Ciclopirox Olamine 0.77 % Cream 1 application Externally Twice a day Taking Gas Relief Extra Strength 125 MG Capsule Oral Not-Taking/PRNJardiance Clotrimazole-Betamethasone 1-0.05 % Cream 1 application Externally Twice a day Medication List reviewed and reconciled with the patientNot-Taking/PRN Jardiance Not-Taking/PRN Clotrimazole-Betamethasone 1-0.05 % Cream 1 application Externally Twice a day Medication List reviewed and reconciled with the patient * Allergies:?Penicillins: skin erruptionsyes[Allergies Verified] Objective: * Vitals:?Ht: 5ft9in, Wt:202, BMI:29.83, Shoe size: 12, BP:118/78mm Hg, BS: 135, Ht-cm: 175.26 cm, Wt-k.63 kg. * ???Past Orders: ???Lab:HEMOGLOBIN A1C (GLYCO HEMOGLOBIN) (Order Date - 04/30/2024) (Collection Date & Time - 04/30/2024 10:11 AM) ? Value Reference Range ?TOTAL HEMOGLOBIN (HGBA1C) 6.6 * Examination: ???Ophthalmology Referral: ?DIABETES EYE EXAM?Neurological: [...] pain on palpation due to neuropathy , TA, T1, T2, T3, T4, T5, T6, T7, T8, T9.?Dermatologic: ?SKIN FINDINGS:?Skin exam reveals Keratotic lesion(s) located at , TA, T5, heels b/l, sub met 1 B/L, Skin shows approximately _40__ percent LESS, sign(s) of, erythema, scaling, in a moccasin fashion, no fissure(s) present, B/L.?VERRUCA:?Reveals a Single , multi-loculated , mosaic-patterned, round, raised, flat-topped, petechial bleeding papule(s), with cauliflower appearance and interruption of skin lines, pain to lateral compression, and size estimated at 5 mm diameter , plantar Forefoot , LEFT.?Vascular: ?DP PULSES (B):?3/4, B/L.?PT PULSES (B):?3/4, B/L.?CAPILLARY FILL TIME:?immediate, all digits, B/L.?TROPHIC CONDITION-TEXTURE/ELASTICITY/TURGOR/HAIR GROWTH (B):?normal, B/L.?TEMPERTURE GRADIENT (C):?normal, warm to cool, proximal to distal, B/L, B/L.?PIGMENTATION:?normal, B/L.?EDEMA (C):?absent, B/L.?General Examination: ?GENERAL APPEARANCE:?Reveals a pleasant, alert, well nourished, well- developed, well hydrated individual, who demonstrates proper attention to hygiene/body habitus, and is in no acute distress, Pt serves as own historian for office visit today.?ORIENTED:?person, place, and time.?FOOT EXAM:?Footwear Evaluation?Orthopedic: ?MUSCLE STRENGTH:?5/5 all groups in a symmetrical fashion, B/L.?FOOTWEAR:?fair condition.? Assessment: * Assessment: 1.?Tinea unguium - B35.1???2 .?Tinea pedis of both feet - B35.3 (Primary)???Specify :Acute problem, Uncomplicated (3)???3.?Type 2 diabetes mellitus with polyneuropathy - E11.42???4.?Plantar wart - B07.0???5.?Pain in left foot - M79.672??? Plan: * Treatment: * Procedures:?Debride Nail 6-10:?Nail debridement?Due to the clinical pathology outlined in the exam findings, performance of this nail treatment is medically necessary as its management by an unskilled/untrained nonprofessional would put this patients foot and overall health at risk. Therefore, debridement to affected nail(s), as described in exam (??TA, T1, T2, T3, T4, T5, T6, T7, T8, T9), was performed exclusively by the physician of record to reduce/remove overall nail length, girth, thickness, subungual debris, and necrotic tissue, by manual and/or electrical means through the use of a nail nipper and/or dremel-type internal grinder tender, to a more viable healthy nail plate or bed tissue 6- 10 nails in total. Silver nitrate was used for any petechial bleeding as necessary. Definitive antifungal treatment options, both pharmaceutical and surgical, have been reviewed and discussed with the patient. The patient solely prefers the use of intermittent/as needed professional debridement services for their nail condition and understands the need for additional periodic treatments to maintain effectiveness in symptomatic relief - 08011.?Keratoma Treatment:?Parring or Cutting of Benign Hyperkeratotic Lesion(s)?(-57) More than 4 Lesions - Due to the at risk nature of the patients medical condition as documented in the exam findings, performance of this keratoderma treatment is medically necessary as its management by an unskilled/untrained nonprofessional would put this patients foot and overall health at risk. Therefore, the benign hyperkeratotic lesions, ( 6) in total, locations as stated and described in the exam (?TA, T5, heels b/l, sub met 1 B/L), were pared, and/or cut utilizing a sterile 15 blade, tissue nippers, and/or power dremel instrumentation by the physician of record - 85607.?Wart Treatment:?Procedure?Verrucae were debrided to pin-point bleeding margins with sterile 15 surgical blade, silver nitrate chemocautery applied, recomm. immune-boosting meds such as zinc, recomm. follow up with topical chemosurgical agents, Pt defers any other forms of tx (73194).? * Procedure Codes:?08788 DEBRI DE NAIL, 6 OR MORE, Modifiers: XS 65558 Wart Destruction, 1-14, Modifiers: XS 34094 TRIM SKIN LESIONS, OVER 4, Modifiers: XS * Preventive Medicine:? ??Counseling:?Discussion:?-12: Office or other outpatient visit for the evaluation and management of an established patient, which required a medically appropriate history and/or examination and STRAIGHTFORWARD level of MEDICAL DECISION MAKING, 1 SELF-LIMITED OR MINOR PROBLEM, MINIMAL- NO AMOUNT/COMPLEXITY OF DATA TO BE REVIEWED/ANALYZED, AND MINIMAL RISK OF COMPLICATION/MORBIDITY. The visit on the day of the [...] encouraged the patient to call the office.?Tinea Pedis:?PREVENTIVE STRATEGIES were reviewed with the patient to avoid recurrent issues ..? ??Screening/Special Tests:?Fall Risk?Assessment:?Performed ?Screening:?No falls in the past year ?FALLS: Screening for Future Fall Risk?Have you had two or more falls in the past year??No ?Have you had any falls with injury in the past year??No * Follow Up:?2 Months * Images: * Sign off status: Completed true * Provider:?Juany Munson DPM Date:? Generated for Tiesha rodriguez/Pan/eTransmitting on:?08/13/2024 01:39 PM EST History and Physical Notes * HPI (History of Present Illness) Category Sub-Category Detail Notes Category Not es Skin problems Location: B/L Duration: a few months Treatments: Medication (Ciclopir ox Olamine 0.77 Cream) Pt States PCP Visit: DATE: 01/27/2024 At Risk footcare Pt States Last PCP Visit: Date: Examination Category Sub-Category Detail Notes Category Not [...] heels b/l, sub met 1 B/L, Skin shows approximately _40__ percent LESS, sign(s) of, erythema, scaling, in a moccasin fashion, no fissure(s) present, B/L VERRUCA: Reveals a Single , m ulti-loculated , mosaic-patterned, round, raised, flat-topped, petechial bleeding papule(s), with cauliflower appearance and interruption of skin lines, pain to lateral compression, and size estimated at 5 mm diameter , plantar Forefoot , LEFT Orthopedic FOOTWEAR: fair condition MUSCLE STRENGTH: 5/5 all groups in a symmetrical fashion, B/L General Examination GENERAL APPEARANCE: Reveals a pleasant, alert, well nourished, well-developed, well hydrated individual, who demonstrates proper attention to hygiene/body habitus, and is in no acute distress, Pt serves as own historian for office visit today FOOT EXAM: Lower Extremity Neurological Exa m performed:: Yes Visual exam of foot performed:: Yes Date: 06/15/2024 ORIENTED: person, place, and t binu Footwear Evaluation Footwear Evaluation performe d:: Yes Ophthalmology Referral DIABETES EYE EXAM Procedure Perform ed:: Yes ?Date of Exam Performed: 03/30/2024 Retinal Screening Performed:: Yes Findings of Diabetic Eye Exam:: no retin [...] pain on palpation due to neuropathy , TA, T1, T2, T3, T4, T5, T6, T7, T8, T9
[2024-08-13 13:52] LABS: Glucose, Whole Blood 126 mg/dL (60-115)
== END 2024-08-13 14:08 | disposition home or self-care (01) ==
PROVIDERS: PCP Internal Medicine; Visit Provider Physician Assistant
DX: E11.8 Type 2 diabetes mellitus with unspecified complications (principal); E78.5 Hyperlipidemia, unspecified

== ENCOUNTER → 2024-08-13 13:29 | Outpatient (BNVA) | payer OTHER, SELFPAY | PROVIDERS: PCP Internal Medicine; Visit Provider Physician Assistant | DX: E11.8 Type 2 diabetes mellitus with unspecified complications (principal); E78.5 Hyperlipidemia, unspecified | CPT/HCPCS: 82947; 99212 ==

== ENCOUNTER 2024-09-02 13:36 | Outpatient (AMB) | payer OTHER, SELFPAY ==
[2024-09-02 14:16] VITALS: BP 110/64; PULSE 71; O2SAT 97; BMI 31.3
--- NOTE | 2024-09-02 14:16 | MHC.OFFVIS ---
Vital Signs 09/02/24 14:16 Height 5 ft 7 in Weight 200 lb BMI 31.3 BP 110/64 Blood Pressure Location Lt brachial Position Sitting Pulse 71 Pulse Source Pulse Oximeter Pulse Oximetry (%) 97 Oxygen Delivery Method Room Air Intake Visit Reasons: COPD Intake Note: pt is here for follow up and states he is feeling wel, some sinus congestion Surgical Coordinator Required: No Allergies Penicillins [PENICILLINS] Allergy (Unknown, Verified 09/02/24 14:31) ANAPHYLAXIS Medication List - Last Reconciled 09/02/24 by Vianca Lyons MD albuterol sulfate 2.5 mg inhalation Q6H PRN atorvastatin 20 mg PO BEDTIME 90 days [bath mat As directed] bisacodyl 10 mg (2 x 5 mg) PO BEDTIME blood sugar diagnostic (Metabolon Ultra Test strips) Use 1 test strip three times a day blood-glucose meter (Metabolon Ultra2 Meter) As directed bupropion HCl XL 150 mg PO DAILY jifpewfawn-zrcxdreoytlzg-coco 50-300-40 mg (Fioricet) 1 cap PO Q4-6H PRN clonazepam 1 mg PO 1 tab in pm and 1/2 tab Qam; clotrimazole-betamethasone 1-0.05 % 1 appl topical BID cyclobenzaprine 10 mg PO TID PRN cyclosporine 0.05% 1 drp ophthalmic (eye) BID dexlansoprazole 60 mg PO DAILY diclofenac sodium 3% 1 appl topical BID PRN 30 days dicyclomine 20 mg PO BID dulaglutide (Trulicity) 1.5 mg (0.5 mL) subcut QWEEK emollient combination no.32 (EpiCeram topical emulsion, extended release) topical escitalopram oxalate (Lexapro) 10 mg PO DAILY fluticasone propionate 50 mcg/actuation (Flonase Allergy Relief) 2 sprays intranasal DAILY 30 days hydrocortisone 2.5% (Proctosol HC) 1 appl MO BID Incruse Ellipta 62.5 mcg/actuation (umeclidinium) 1 inh PO DAILY NS ketoconazole 2% appl topical DAILY PRN lancets (Metabolon UltraSoft 2 Lancet) Use 1 lancet three times per day day lancets ([employer] Safety Lancet) As directed 3 times per day mesalamine 2.4 grams (2 x 1.2 gram) PO DAILY montelukast 10 mg PO DAILY [id number]-qyoblq [id number] mcg (Centrum Silver Men) 1 tab PO DAILY oxybutynin chloride ER 10 mg PO DAILY 90 days propranolol ER 80 mg PO BID rivaroxaban (Xarelto) 20 mg PO DAILY ropinirole 1 mg PO BEDTIME [shower head As directed] simethicone (Gas Relief Extra Strength) 125 mg PO BID-QID sucralfate 20 mL PO QNOON tadalafil (Cialis) 5 mg PO DAILY 90 days triamcinolone acetonide 0.1% 1 appl topical BID-TID Ventolin HFA 90 mcg/actuation (albuterol sulfate) 2 puffs PO QID PRN NS zolpidem 10 mg PO BEDTIME PRN Do you need a note to return to daycare/school/sports/work: No HPI HPI COPD: Details: This 63 years old gentleman is here for follow-up after 6 months. He is being treated for lifelong chronic allergic rhinitis and bronchial asthma. His nasal congestion seems to be controlled most of the time but flares up at any change in the weather. He uses Flonase 2 sprays in each nostril daily Breathing is holding very stable and he does use Incruse Ellipta once a day. Does not need to use albuterol too frequently. For his diabetes mellitus he is recently started on Trulicity injection, and has lost weight. With that he feels much better. [facility] Medical History Type 2 diabetes mellitus Hyperlipidemia LDL goal <70 COPD (chronic obstructive pulmonary disease) Personal history of nicotine dependence Allergic rhinitis History of COVID-19 Ulcerative colitis OAB (overactive bladder) Obesity (BMI 30-39.9) Insomnia Abdominal wall hernia Surgical History History of incisional hernia repair History of cervical spinal surgery History of colonoscopy History of appendectomy History of esophagogastroduodenoscopy (EGD) Family History Father Diabetes HTN (hypertension) Heart attack Mother Skin cancer HTN (hypertension) Diabetes Paternal Aunt Heart attack Sister Skin cancer Social History Household Members: Spouse Housing: Apartment Alcohol intake: never Patient Tobacco Use Status: Former Tobacco user Tobacco use type: Cigarette Years Smoked: (former smoker - onset 15yo, 1ppd x 36yrs, 35pyh, quit 2011) e-Cigarette/Vaping Use: Never Used Second Hand Smoke Exposure: No Substance Use Type: Marijuana service: No Current occupational status: retired Cognitive needs: No Hearing needs: No Vision needs: No Review of Systems Const All systems reviewed & are unremarkable except as noted in HPI and below Eyes Reports no additional complaints ENT Reports nasal congestion and Reports nasal discharge Card Denies chest pain, Denies irregular heart rhythm and Denies leg edema Resp Reports as per HPI GI Reports heartburn (Being treated for GERD symptoms) Reports erectile dysfunction and Reports urinary incontinence Musc Reports no additional complaints Skin/Breast Reports system reviewed and no additional complaints, except as documented Neuro Reports no additional complaints Psych Reports anxiety and Reports depression Endo Reports no additional complaints Jamie/Lymph Reports no additional complaints Physical Exam Vital Signs: Last Vital Signs Pulse 71 09/02/24 14:16 BP 110/64 09/02/24 14:16 Pulse Ox 97 09/02/24 14:16 Oxygen Delivery Method Room Air 09/02/24 14:16 BMI result Body Mass Index 31.3 Const General: comfortable, no acute distress, alert and awake Orientation/consciousness: patient oriented x3 HEENT Head: Yes normal to inspection General nose exam: No nasal polyps present and No nasal discharge present Face and sinus: Yes sinuses nontender Mouth: oropharynx normal Throat: Yes posterior oropharynx normal Eyes General: appearance normal, both eyes and all related structures Neck Neck: Yes normal visual inspection, Yes no lymphadenopathy, Yes trachea midline and Yes no JVD Thyroid: Thyroid normal Chest Chest palpation & inspection: normal inspection of the chest, normal palpation of entire chest wall and no tenderness Resp Other: Percussion note resonant, breath sounds are slightly distant with prolonged expiratory phase, equal on both sides. No wheezes or rhonchi are heard today. Cardio Palpation: normal PMI Rate: regular rate Rhythm: regular rhythm Heart sounds: no gallops and no murmurs GI Palpation (GI): Soft to palpation, nontender, No hepatosplenomegaly present, no masses and Other GI palpation findings present (Abdomen moderately protuberant, due to surgical scar/ventral hernia ) Auscultation: normal bowel sounds Back/Spine/Pelvis Thoracic/Lumbar Spine: thoracic and lumbar spine normal to inspection Skin General skin exam: no rashes or lesions noted Neuro General: patient oriented x3 and no focal motor deficits Cranial nerves: Yes CN's II-XII intact bilaterally Extrem General: Yes normal to inspection, Yes no clubbing, cyanosis or edema and Yes no calf tenderness Psych Appearance: grossly normal and well kempt Speech and movement: Normal speech and movement present Assessment & Plan Assessment & Plan (1) COPD (chronic obstructive pulmonary disease): Comment: Moderate degree of chronic obstructive pulmonary disease, ., SEC TO PAST h/o SMOKING STABLE AT THIS TIME. HE CLAIMS THAT HIS BREATHING IS MUCH BETTER ESPECIALLY SINCE HE HAS LOST SOME WEIGHT. Code(s): J44.9 - Chronic obstructive pulmonary disease, unspecified Category: Medical Qualifiers: COPD type: emphysema Emphysema type: panlobular Qualified Code(s): J43.1 - Panlobular emphysema Plan: CONTINUE TO USE INCRUSE ELLIPTA ONCE A DAY. ALBUTEROL HFA 2 PUFFS Q 6 HOURS P.R.N. (2) Personal history of nicotine dependence: Comment: (former smoker - onset 15yo, 1ppd x 36yrs, 35pyh, quit 2011) HE DOES SMOKE CANNABIS ONCE A DAY OFF AND ON . Code(s): Z87.891 - Personal history of nicotine dependence Category: Medical Plan: COMMENDED FOR NOT SMOKING. DO NOT SMOKE CANNABIS MORE THAN ONCE OR TWICE A DAY. (3) Allergic rhinitis: Comment: Chronic, perineal, allergic type rhinitis, remains controlled. Currently has very little symptoms . Code(s): J30.9 - Allergic rhinitis, unspecified Category: Medical Plan: USE FLONASE-52 SPRAY IN EACH NOSTRIL DAILY. CONTINUE MONTELUKAST 10 MG DAILY. Coding Level of Care Code Est Pt Level 3 (10889) Diagnoses Panlobular emphysema J43.1 COPD type: emphysema Emphysema type: panlobular Personal history of nicotine dependence Z87.891 Allergic rhinitis J30.9
--- OUTSIDE RECORDS SUMMARY | 2024-09-02 16:32 | XMS_ITS ---
Author Organization [facility] Address [address] [facility] [address] Care Team Providers Care Storage Architect Name Role Phone Shelli Moore MD Primary Care Provider Unavail able Juany Munson Unavailable [phone] Allergies Allergen (clinical drug ingredient) Drug/Non Drug Allergy documented on EMR Reaction Allergy Type Onset Date Status Substance with penicillin structure and antibacterial mechanism of action (substance) Penicillins skin erruptions Drug Allergy Active REASON FOR VISIT At Risk Footcare, Skin Problem, Wart(s), Toe Irritation Medications Medication SIG (Take, Route, Frequency, Duration) Notes Start Date End Date Status Albuterol Sulfate 108 (90 Base) MCG/ACT 1 puff as needed Inhalation every 4 hrs Active Ciclopirox Olamine 0.77 % 1 application Externally Twice a day for 30 days Active Gas Relief Extra Strength 125 MG Oral for 30 Days Active Jardiance Not-Taking Clotrimazole-Betamethaso ne 1-0.05 % 1 application Externally Twice a day Not-Taking Extra Depth Orthopedic Shoes (1 Pair) with Customized Heat Molded Multidensity Innersoles (3 Pair) as directed Dx: NIDDM/Polyneuropathy (E11.42), Hammertoe Foot Deformity (M20.41,M20.42), Preulcerative Skin Lesion(s) (L85.1 09/01/2024 Active Dexilant 60 MG 1 capsule Orally Onc e a day Active clonazePAM 1 MG 1 tablet Orally Once a day Active buPROPion HCl ER (XL) 300 MG 1 tablet in the morning Orally Once a day Active Bisacodyl 5 MG 1 tablet as needed Orally Once a day PRN Active Mesalamine 1.2 GM 2 tablets with a ml l Orally Once a day Active Proctosol HC 2.5 % 1 application Heel Washer Stringing Machine Operator ally Twice a day Active Escitalopram Oxalate 10 MG 1 tablet Orally Once a day Active Dicyclomine HCl 20 MG 1 tablet Orally Th ree times a day Active metFORMIN HCl 500 MG 1 tablet with a ml l Orally Once a day Active oxyBUTYnin Active Tadalafil 20 MG 1 tablet as needed Orally Once a day PRN Active Incruse Ellipta 62.5 MCG/ACT 1 puff Inhalation Once a day Active Propranolol HCl 80 MG 1 tablet Orally Tw ice a day Active Montelukast Sodium 10 MG 1 tablet Orally Once a day Active Atorvastatin Calcium 20 MG 1 tablet Orally Once a day for 30 day(s) Active Trulicity 1.5 MG/0.5ML as directed Subcutaneous Active Blood Thinners Activ e Xarelto Active Meloxicam 7.5 MG 1 tablet Orally Once a day for 30 day(s) PRN Active Social History Tobacco Use: Social History Observation Description Date Details (start date - stop date) Never Smoker NA - NA Tobacco use other than smoking: Question Answer Notes Are you an other tobacco user? No Tobacco Control (Standard) Question Answer Notes Tobacco use: Nonsmoker Additional Findings: Tobacco non-user Current no nsmoker AUDIT-C (Standard) Question Answer Notes Did you have a drink containing alcohol in the p ast year? No Points 0 Interpretation Negative Problems Problem Type SNOMED Code ICD Code Onset Dates Problem Status W/U Status Risk Notes Problem Acquired hammer toe of right foot (1718137295456 105) Other hammer toe(s) (acquired), right foot (M20.41) Active confirmed Problem Acquired hammer toe of left foot (0012668514228 103) Other hammer toe(s) (acquired), left foot (M20.42) Active confirmed Vital Signs Height 5ft9in in 09/01/2024 Weight 202 lbs 09/01/2024 BMI 29.83 kg/m2 09/01/2024 Blood pressure systolic 118 mm Hg 09/02/19 25 Blood pressure diastolic 70 mm Hg 025 Encounters Encounter Location Date Provider Diagnosis [facility] [address] [address] 09/01/2024 Juany Munson Tinea pedis of both feet B35.3 ; Other hammer toe(s) (acquired), right foot M20.41 ; Tinea unguium B35.1 ; Type 2 diabetes mellitus with polyneuropathy E11.42 ; Plantar wart B07.0 ; Pain in left foot M79.672 and Other hammer toe(s) (acquired), left foot M20.42 Assessments Encounter Date Diagnosis (ICD Code) Assessment Notes Treatment Notes Treatment Clinical Notes Section Notes 09/01/2024 Tinea pedis of both feet (ICD-10 - B35.3) 09/01/2024 Other hammer toe(s) (acquired), right foot (ICD-10 - M20.41) Patient Educated with: DIABETIC FOOT CARE INSTRUCTIONS. pdf (DIABETIC FOOT CARE INSTRUCTIONS. pdf) 09/01/2024 Tinea unguium (ICD-10 - B35.1) 09/01/2024 Type 2 diabetes mellitus with polyneuropathy (ICD-10 - E11.42) 09/01/2024 Plantar wart (ICD-10 - B07.0) 09/01/2024 Pain in left foot (ICD-10 - M79.672) 09/01/2024 Other hammer toe(s) (acquired), left foot (ICD-10 - M20.42) Plan Of Treatment Medication Medication Name Sig Start Date Stop Date Notes Extra Depth Orthopedic Shoes (1 Pair) with Customized Heat Molded Multidensity Innersoles (3 Pair) as directed Dx: NIDDM/Polyneuropathy (E11.42), Hammertoe Foot Deformity (M20.41,M20.42), Preulcerative Skin Lesion(s) (L85.1 09/01/2024 Treatment Notes Assessment Notes Other hammer toe(s) (acquired), right fo ot Patient Educated with: DIABETIC FOOT CARE INSTRUCTIONS.pdf (DIABETIC FOOT CARE INSTRUCTIONS.pdf) Next Appt Details Follow Up: 2 Months, Reason: Provider Name:Juany luna, 11/19/2024 01:00:00 PM, [address] [place] [address], [phone], Procedure Notes * Category Sub-Category Detail Notes Wart Treatment Procedure Verrucae were de brided to pin-point bleeding margins with sterile 15 surgical blade, silver nitrate chemocautery applied, recomm. immune-boosting meds such as zinc, recomm. follow up with topical chemosurgical agents, Pt defers any other forms of tx (13591) Debride Nail 6-10 Nail debridement Due to [...] use of a nail nipper and/or dremel-type profile grinder technician, to a more viable healthy nail plate [...] to maintain effectiveness in symptomatic relief - 47468 Keratoma Treatment Parring or Cutting o f [...] instrumentation by the physician of record - 67070 Progress Notes * Viridiana MUNOZOB: 1 (63 yo M)Acc No.[id number]:09/01/2024 Progress Note Patient:?Kali MUNOZ Provider:?Juany Munson DPM :1960???Age:63 Y???Sex:Male Constantin e:09/01/2024 Address: [address] , [place] Pcp:Shelli Moore MD Subjective: * Chief Complaints: * ???At Risk FootcareSkin Prob lemWart(s)Toe Irritation * HPI: ???At Risk footcare:?Pt States Last PCP Visit:?Date?01/27/2024 ???Skin problems:?Pt States PCP Visit: ?DATE?01/27/2024 ?Location:?B/L .?Duration:?a few months.?Treatments:?Medication (Ciclopirox Olamine 0.77 Cream).?Toe pain:?Location:?B/L feet.?Duration:?several years.?Course:?worse.?Aggravated by:?shoes, any pressure.?Treatments:?change in shoes.? * ROS:?General/Constitutional:?Nausea?denies.?Vomiting?denies.?Hunger Thirst?denies.?Loss appetite?denies.?Chills?denies.?Fatigue?denies.?Fever?denies.?Night Sweats?denies.?Unexplained weight loss?denies.?Unexplained [...] * Surgical History:?cervical ( spine?) surgery 2017hernia 2018-2020peritonitis 2019 * Hospitalization/Major Diagno stic Procedure:?Denies Past Hospitalization * Family History:?Mother: dece ased, skin cancer, poor circulation, diagnosed with Diabetic - NIDDM.?Father: , diagnosed with Diabetic - NIDDM, Unspecified essential hypertension, Unspecified heart disease, Family history of arthritis.? * Social History:?Tobacco Use:?Tobacco use other than smoking?Are you an other tobacco user??No ?Tobacco Control (Standard)?Tobacco use:?Nonsmoker ?Additional Findings: Tobacco non-user?Current nonsmoker ???Drugs/Alcohol:?Drugs?Have you used drugs other than those for medical reasons in the past 12 months??Yes ?Marijuana??Yes Vaping Occassionally ???Miscellaneous:?Caffeine: yes, frequency: 1 cup per day. ?Children: yes. ?Exercise: no. ?Marital status: single. ?Occupation: Retired. ???Drug/Alcohol:?AUDIT-C (Standard)?Did you have a drink containing alcohol in the past year??No ?Points?0 ?Interpretation?Negative * Medications:?TakingTrulicity 1.5 MG/0.5ML Solution Auto-injector as directed Subcutaneous Blood [...] Strength 125 MG Capsule Oral Taking Trulicity 1.5 MG/0.5ML Solution Auto-injector as directed Subcutaneous Taking [...] * Allergies:?Penicillins: skin erruptionsyes[Allergies Verified] Objective: * Vitals:?Ht:5ft9in, Wt:202, B UT:29.83, Shoe size:12, BP:118/70mm Hg, BS:137, Ht- cm: 175.26 cm, Wt-k.63 kg. * ???Past Orders: ???Lab:HEMOGLOBIN A1C (GLYCO HEMOGLOBIN) (Order Date - 05/31/2024) (Collection Date & Time - 09/01/2024 11:36 AM) ? Value Reference Range ?HEMOGLOBIN A1C % (HH) 6.6 * Examination: ???Ophthalmology Referral: ?DIABETES EYE EXAM?Procedure Performed:?Yes ?Date of Exam Performed?05/31/2024 ?Diabetic Retinopathy Screening:?Yes ?Retinal Screening Performed:?Yes ?Findings of Diabetic Eye Exam:?no retinopathy?Neurological: ?SENSORY:?Neurological exam reveals intact sensorium, pain sensation normal, vibration sensation intact, pinprick sensation is normal in the lower extremities, Pt denies, anesthesia, burning, paresthesia, tingling, B/L.?Nails: ?NAILS are:?Elongated, overgrown, dystrophic, lytic, greater than 3mm thick, discolored and friable with crumbly malodorous subungual debris , with dull to no pain on palpation due to neuropathy , TA, T1, T2, T3, T4, T5, T6, T7, T8, T9.?Dermatologic: ?SKIN FINDINGS:?Skin exam reveals Keratotic lesion(s) located at , TA, T5, heels b/l, sub met 1 B/L, Skin shows approximately _75__ percent LESS, sign(s) of, erythema, scaling, in [...] for office visit today.?ORIENTED:?person, place, and time.?FOOT EXAM:?Lower Extremity Neurological Exam performed:?Yes ?Visual exam of foot performed:?Yes ?Date?09/01/2024 ?Footwear Evaluation?Footwear Evaluation performed:?Yes?Orthopedic: ?MUSCLE STRENGTH:?5/5 all groups in a symmetrical fashion, B/L.?DIGITAL DEFORMITIES:?Digital contracture, PIPJ, 2-5 B/L, incompl-reducible to push-up test, no over, nor underlapping,?there is?evidence of shoe producing skin irritation.?FOOTWEAR:?fair condition , worn, non-supportive, shoe gear properties exacerbate patient's foot/toe deformity.? Assessment: * Assessment: 1.?Other hammer toe(s) (acqu ired), right foot - M20.41 (Primary)???Specify :Chronic problem, Worse (4),Rx Management (4)???2.?Tinea pedis of both feet - B35.3???Specify :Acute problem, Uncomplicated (3)???3.?Tinea unguium - B35.1???4.?Type 2 diabetes mellitus with polyneuropathy - E11.42???5.?Plantar wart - B07.0???6.?Pain in left foot - M79.672???7.?Other hammer toe(s) (acquired), left foot - M20.42???Specify :Chronic problem, Worse (4),Rx Management (4)??? Plan: * Treatment: * Procedures:?Debride Nail 6-10:?Nail [...] use of a nail nipper and/or dremel-type profile grinder technician, to a more viable healthy nail plate [...] to maintain effectiveness in symptomatic relief - 56480.?Keratoma Treatment:?Parring or Cutting of Benign Hyperkeratotic Lesion(s)?(-57) [...] instrumentation by the physician of record - 73213.?Wart Treatment:?Procedure?Verrucae were debrided to pin-point bleeding margins with sterile 15 surgical blade, silver nitrate chemocautery applied, recomm. immune-boosting meds such as zinc, recomm. follow up with topical chemosurgical agents, Pt defers any other forms of tx (17432).? * Procedure Codes:?78728 DEBRI DE NAIL, 6 OR MORE, Modifiers: XS 74001 Wart Destruction, 1-14, Modifiers: XS 67850 TRIM SKIN LESIONS, OVER 4, Modifiers: XS * Preventive Medicine:? ??Counseling:?Tobacco use:?Type of Tobacco Use Cessation Counseling provided?Smoking effects education ?Patient counseled on the dangers of smoking and urged to quit:?09/01/2024 ?Discussion:?-14: Office or other outpatient visit for the evaluation and management of an established patient, which required a medically appropriate history and/or examination and MODERATE level of DECISION MAKING for: 1 OR MORE CHRONIC PROBLEM(S) THATS WORSENING, 2 STABLE CHRONIC PROBLEMS, A NEWLY DIAGNOSED PROBLEM WITH UNCERTAIN PROGNOSIS, AN ACUTE COMPLICATED INJURY WITH MULTIPLE TREATMENT OPTIONS, OR AN ACUTE PROBLEM WITH ACCOMPANYING SYSTEMIC SYMPTOMS, THAT POSE(S) A MODERATE RISK OF MORBIDITY. THIS CONDITION MAY ALSO INCLUDE RX DRUG MANAGEMENT, OR A DECISON FOR MINOR SURGERY. The visit on the day of the [...] have encouraged the patient to call the office.?Digital Surgery:?Digital surgery was discussed with the patient, We elected to try conservative treatment at the present time, due to the patients medical history and increased asssociated post-operative risks.?Digital Treatment:?HT- I explained to the patient the possible etiologies of Hammertoes, including genetics/foot type/shoegear/activity level/exercise routine and the risks/benefits of all the different treatment options for their pain including: No treatment at all, Rest, Ice, New/supportive/wider/deeper Shoegear, Digital Padding/Strapping/Taping/Bracing/Gel protective sleeves, Foot/Ankle AFO Bracing, Stretching exercises, Deep Tissue Massage, Arch support/shoe inserts with splay metatarsal padding, and Custom orthoses. I insisted that any digital devices be removed daily and not worn overnight for safety. The patient is to carefully examine the toes daily for any skin irritation while using any splinting or padding device. The advantages and disadvantages of each option were discussed and the patients questions re: shoegear, padding, custom vs prefabricated inserts, activity level, and consistency in home treatment regimens for optimal success were answered to their verbally confirmed satisfaction.?Shoe Gear Counseling:?SHOE Rx - The patient was counseled in great detail on their muscoloskeletal foot and toe deformities which coincided with the dermatological presentations visualized on exam. We discussed how their deformities put the integrity of their feet at risk for potential pedal complications which makes the accomidative diabetic shoes and cutomizable inserts medically necessary. We discussed the different shoe and insert treatment types and options, as well as the important advantages for adhering to regularly wearing these accomidative devices daily. The patient was made aware of the fact that a failure to abide by these recommedations may be deleterious to their foot health as they are able to prevent many pedal complications such as skin irritation, skin ulceration, infection, and even loss of toe/foot/leg/or life. Time was also spent with the patient dispensing and discussing proper diabetic footcare techniques including daily skin moisturization, daily foot inspection for any interruption in skin integrity including open lesions, or sign of infection such as redness/malodor/drainage/swelling. Also discussed and recommended were procedures regarding daily shoe inspection for the presence of internal foreign bodies as well as any visualized irregular shoe or insert wear. Patient questions re: shoes, inserts, and self foot inspections were answered to their satisfaction as the patient verbally confirmed a full understanding of the above information. A Rx for Extra Depth Orthopedic Shoes with 3 pair of custom heat-molded inserts was dispensed.?Tinea Pedis:?Given recent successful results to treatment, The patient is to cont the rx cream as directed.? ??Screening/Special Tests:?Fall Risk?Assessment:?Performed ?Screening:?No falls in the past year ?FALLS: Screening for Future Fall Risk?Have you had two or more falls in the past year??No ?Have you had any falls with injury in the past year??No * Follow Up:?2 Months * Images: * Sign off status: Completed true * Provider:?Juany Munson DPM Date:?10/2024 Generated for Tiesha rodriguez/Pan/Kirk on:?09/02/2024 04:31 PM EST History and Physical Notes * HPI (History of Present Illness) Category Sub-Category Detail Notes Category Not es Toe pain Location: B/L feet Duration: several years Course: worse Aggravated by: shoes, any pressure Treatments: change in shoes Skin problems Location: B/L Duration: a few months Treatments: Medication (Ciclopir ox Olamine 0.77 Cream) Pt States PCP Visit: DATE: 01/27/2024 At Risk footcare Pt States Last PCP Visit: Date: Examination Category Sub-Category Detail Notes Category Not es Neurological SENSORY: Neurological exa m reveals intact sensorium, pain sensation normal, vibration sensation intact, pinprick sensation is normal in the lower extremities, Pt denies, anesthesia, burning, paresthesia, tingling, B/L Dermatologic SKIN FINDINGS: Skin exam reveal s Keratotic lesion(s) located at , TA, T5, heels b/l, sub met 1 B/L, Skin shows approximately _75__ percent LESS, sign(s) of, erythema, scaling, in a moccasin fashion, no fissure(s) present, B/L VERRUCA: Reveals a Single , m ulti-loculated , mosaic-patterned, round, raised, flat-topped, petechial bleeding papule(s), with cauliflower appearance and interruption of skin lines, pain to lateral compression, and size estimated at 5 mm diameter , plantar Forefoot , LEFT Orthopedic FOOTWEAR: fair condition , worn, non-supportive, shoe gear properties exacerbate patient's foot/toe deformity DIGITAL DEFORMITIES: Digital contracture , PIPJ, 2-5 B/L, incompl-reducible to push-up test, no over, nor underlapping, there is evidence of shoe producing skin irritation MUSCLE STRENGTH: 5/5 all groups in a symmetrical fashion, B/L General Examination GENERAL APPEARANCE: Reveals a pleasant, alert, well nourished, well-developed, well hydrated individual, who demonstrates proper attention to hygiene/body habitus, and is in no acute distress, Pt serves as own historian for office visit today FOOT EXAM: Lower Extremity Neurological Exa m performed:: Yes Visual exam of foot performed:: Yes Date: 09/01/2024 ORIENTED: person, place, and t binu Footwear Evaluation Footwear Evaluation performe d:: Yes Ophthalmology Referral DIABETES EYE EXAM Procedure Perform ed:: Yes ?Date of Exam Performed: 05/31/2024 Diabetic Retinopathy Screening:: Yes Retinal Screening Performed:: Yes Findings of Diabetic [...]
--- OUTSIDE RECORDS SUMMARY | 2024-09-02 16:32 | XMS_ITS ---
Author Organization [facility] Address [address] [place] [address] Care Team Providers Care Kayaking Instructor Name Role Phone Shelli Moore MD Primary Care Provider Unavail able Juany Munson Unavailable [phone] REASON FOR VISIT seen 04/01/2024 Encounters Encounter Location Date Provider Diagnosis [address] [address] 04/06/2024 Juany Munson Plan Of Treatment Next Appt Details Provider Name:Juany luna, 11/19/2024 01:00:00 PM, [address] [place] [address], [phone], Progress Notes * Huber MUNZOoDOB: (63 yo M)Acc No.[id number]:04/06/2024 Progress Note Patient:?Kali MUNOZ Provider:?Juany Munson DPM :1960???Age:63 Y???Sex:Male Constantin e:04/06/2024 [address] [place] Pcp:Shelli Moore MD Subjective: * Chief Complaints: [...] Munson DPM Date:?01/2024 Generated for Tiesha rodriguez/Pan/Kirk on:?09/02/2024 04:32 PM EST
--- OUTSIDE RECORDS SUMMARY | 2024-09-02 16:32 | XMS_ITS ---
Author Organization [facility] Address [address] [place] [address] Care Team Providers Care Long Wall Mining Machine Helper Name Role Phone Shelli Moore MD Primary Care Provider Unavail able Juany Munson Unavailable [phone] Allergies Allergen (clinical drug ingredient) Drug/Non Drug [...] Active Proctosol HC 2.5 % 1 application Top Spotter ally Twice a day Active oxyBUTYnin Active [...] 024 Encounters Encounter Location Date Provider Diagnosis [facility] [address] [address] 06/15/2024 Juany Munson Tinea pedis of both [...] Months, Reason: Provider Name:Juany Luna Linh luna, 11/19/2024 01:00:00 PM, [address] [place], [address], Procedure Notes * Category Sub-Category Detail Notes Wart Treatment Procedure Verrucae were de brided to pin-point bleeding margins with sterile 15 surgical blade, silver nitrate chemocautery applied, recomm. immune-boosting meds such as zinc, recomm. follow up with topical chemosurgical agents, Pt defers any other forms of tx (39329) Debride Nail 6-10 Nail debridement Due to [...] use of a nail nipper and/or dremel-type rotary surface grinder, to a more viable healthy nail plate [...] to maintain effectiveness in symptomatic relief - 30475 Keratoma Treatment Parring or Cutting o f [...] instrumentation by the physician of record - 56957 Progress Notes * Viridiana MUNOZOB: (63 yo M)Acc No.[id number]:06/15/2024 Progress Note Patient:Kali RAMIREZ Provider:?Juany Munson DPM :1960???Age:63 Y???Sex:Male Constantin e:06/15/2024 Address: [address] , [place], [place] Pcp:Shelli Moore MD Subjective: * Chief Complaints: [...] ?DIABETES EYE EXAM?Procedure Performed:?Yes ?Date of Exam Performed?03/30/2024 ?Retinal Screening Performed:?Yes ?Findings of Diabetic Eye Exam:?no retinopathy?Neurological: ?SENSORY:? Neurological exam demonstrates, reduced light touch [...] Exam performed:?Yes ?Visual exam of foot performed:?Yes ?Date?06/15/2024 ?Footwear Evaluation?Footwear Evaluation performed:?Yes?Orthopedic: ?MUSCLE STRENGTH:?5/5 all [...] use of a nail nipper and/or dremel-type rotary surface grinder, to a more viable healthy nail plate [...] to maintain effectiveness in symptomatic relief - 80576.?Keratoma Treatment:?Parring or Cutting of Benign Hyperkeratotic Lesion(s)?(-57) [...] instrumentation by the physician of record - 38910.?Wart Treatment:?Procedure?Verrucae were debrided to pin-point bleeding margins with sterile 15 surgical blade, silver nitrate chemocautery applied, recomm. immune-boosting meds such as zinc, recomm. follow up with topical chemosurgical agents, Pt defers any other forms of tx (88789).? * Procedure Codes:?54841 DEBRI DE NAIL, 6 OR MORE, Modifiers: XS 86730 Wart Destruction, 1-14, Modifiers: XS 14848 TRIM SKIN LESIONS, OVER 4, Modifiers: XS [...] Provider:?Juany Munson DPM Date:? Generated for Tiesha rodriguez/Pan/Kirk on:?09/02/2024 04:32 PM EST History and Physical Notes * [...]
--- OUTSIDE RECORDS SUMMARY | 2024-09-02 16:32 | XMS_ITS | Patient Health Record ---
Author Organization [facility] Address [address] [facility] [place] [address] Care Team Providers Care Finished Yarn Examiner Name Role Phone Teresa ELLIS, Shelli Primary Care Provider Unavail able Juany Munson Unavailable [phone] Allergies Allergen (clinical drug ingredient) Drug/Non Drug [...] Performing Lab: Notes/Report: TOTAL HEMOGLOBIN (HGBA1C) 6.6 HEMOGLOBIN A1C (GLYCOHEMOGLO BIN) Reviewed date:09/01/2024 11:37:41 AM Interpretation: Performing Lab: Notes/Report: HEMOGLOBIN A1C % (HH) 6.6 Reason For Referral No Information Medications Medication SIG (Take, Route, Frequency, Duration) Notes Start Date End Date Status Extra Depth Orthopedic Shoes (1 Pair) with Customized Heat Molded Multidensity Innersoles (3 Pair) as directed Dx: NIDDM/Polyneuropathy (E11.42), Hammertoe Foot Deformity (M20.41,M20.42), Preulcerative Skin Lesion(s) (L85.1 09/01/2024 Active oxyBUTYnin Active Albuterol Sulfate 108 (90 Base) MCG/ACT 1 puff as needed Inhalation every 4 hrs Active Ciclopirox Olamine 0.77 % 1 application Externally Twice a day for 30 days Active Gas Relief Extra Strength 125 MG Oral for 30 Days Active Jardiance Not-Taking Atorvastatin Calcium 20 MG 1 tablet Orally Once a day for 30 day(s) Active Tadalafil 20 MG 1 tablet as needed Orally Once a day PRN Active Incruse Ellipta 62.5 MCG/ACT 1 puff Inhalation Once a day Active Propranolol HCl 80 MG 1 tablet Orally Tw ice a day Active Clotrimazole-Betamethaso ne 1-0.05 % 1 application Externally Twice a day Not-Taking Trulicity 1.5 MG/0.5ML as directed Subcutaneous Active Blood Thinners Activ e Xarelto Active Meloxicam 7.5 MG 1 tablet Orally Once a day for 30 day(s) PRN Active Dexilant 60 MG 1 capsule Orally [...] Active Proctosol HC 2.5 % 1 application Director Nurses[employer] ally Twice a day Active Escitalopram Oxalate 10 MG 1 tablet Orally Once a day Active Dicyclomine HCl 20 MG 1 tablet Orally Th ree times a day Active Montelukast Sodium 10 MG 1 tablet Orally Once a day Active metFORMIN HCl 500 MG 1 tablet with a ml l Orally Once a day Active Immunizations Vaccine Route Administration Date Status [...] Problem Acquired hammer toe of right foot (225547264517 9105) Other hammer toe(s) (acquired), right foot (M20.41) Active confirmed Problem Acquired hammer toe of left foot ([id number] 9103) Other hammer toe(s) (acquired), left foot (M20.42) Active confirmed Problem [id number] Plantar wart (B07.0) Active confirmed Problem 19547042 Type 2 diabetes mellitus with polyneuropathy (E11.42) Active confirmed Vital Signs Blood pressure diastolic 70 mm Hg 09/01/2024 Height 5ft9in in 09/01/2024 Blood pressure systolic 118 mm Hg 09/01/2024 Weight 202 lbs 09/01/2024 BMI 29.83 kg/m2 09/01/2024 Encounters Encounter Location Date Provider Diagnosis [address] [address] 11/04/2023 Juany Perica Tinea pedis of both feet B35.3 ; Tinea unguium B35.1 ; Type 2 diabetes mellitus with polyneuropathy E11.42 ; Plantar wart B07.0 and Pain in left foot M79.[address] [address] 01/28/2024 Juany Perica Tinea pedis of both feet B35.3 ; Tinea unguium B35.1 ; Type 2 diabetes mellitus with polyneuropathy E11.42 ; Plantar wart B07.0 and Pain in left foot M79.[address] [address] 04/01/2024 Juany Perica Tinea pedis of both feet B35.3 ; Tinea unguium B35.1 ; Type 2 diabetes mellitus with polyneuropathy E11.42 ; Plantar wart B07.0 and Pain in left foot M79.[address] [address] 06/15/2024 Juany Perica Tinea pedis of both feet B35.3 ; Tinea unguium B35.1 ; Type 2 diabetes mellitus with polyneuropathy E11.42 ; Plantar wart B07.0 and Pain in left foot M79.672 [facility] [address] [address] 09/01/2024 Juany Munson Tinea pedis of both feet B35.3 ; Other hammer toe(s) (acquired), right foot M20.41 ; Tinea unguium B35.1 ; Type 2 diabetes mellitus with polyneuropathy E11.42 ; Plantar wart B07.0 ; Pain in left foot M79.672 and Other hammer toe(s) (acquired), left foot M20.42 [facility] [address] [address] 01/14/2024 Juany Munson Assessments Encounter Date Diagnosis (ICD Code) Assessment Notes Treatment Notes Treatment Clinical Notes Section Notes 11/04/2023 Tinea pedis of both feet (ICD-10 [...] (DIABETIC FOOT CARE INSTRUCTIONS. pdf) 09/01/2024 Tinea pedis of both feet (ICD-10 - B35.3) 09/01/2024 Tinea unguium (ICD-10 - B35.1) 06/15/2024 Type 2 diabetes mellitus with polyneuropathy (ICD-10 - E11.42) 01/28/2024 Tinea unguium (ICD-10 - B35.1) 04/01/2024 Tinea unguium (ICD-10 - B35.1) 11/04/2023 Tinea unguium (ICD-10 - B35.1) 11/04/2023 Type 2 diabetes mellitus with polyneuropathy (ICD-10 - E11.42) 01/28/2024 Type 2 diabetes mellitus with polyneuropathy (ICD-10 - E11.42) 04/01/2024 Type 2 diabetes mellitus with polyneuropathy (ICD-10 - E11.42) 06/15/2024 Plantar wart (ICD-10 - B07.0) 09/01/2024 Type 2 diabetes mellitus with polyneuropathy (ICD-10 - E11.42) 06/15/2024 Pain in left foot (ICD-10 - M79.672) 09/01/2024 Plantar wart (ICD-10 - B07.0) 04/01/2024 Plantar wart (ICD-10 - B07.0) 01/28/2024 Plantar wart (ICD-10 - B07.0) 11/04/2023 Plantar wart (ICD-10 - B07.0) 11/04/2023 Pain in left foot (ICD-10 - M79.672) 01/28/2024 Pain in left foot (ICD-10 - M79.672) 04/01/2024 Pain in left foot (ICD-10 - M79.672) 09/01/2024 Pain in left foot (ICD-10 - M79.672) 09/01/2024 Other hammer toe(s) (acquired), left foot (ICD-10 - M20.42) Plan Of Treatment Next Appt Details Provider Name:Juany luna, 11/19/2024 01:00:00 PM, [address] [place] [address], [phone], Insurance Providers Payer Name Payer Address Payer Phone Subscriber Number Group Number Insured Name Patient Relationship to Insured Coverage Start Date Coverage End Date [facility] [employer] Claims [address] [place] [address] [place] [address] [id number] Kali Munoz Self - patient is the insured Medical (General) History Medical History History ICD Code Anxiety Back,Hip,and Knee pain covid-19 Depression Diabetic Headaches/Migraines Hepatitis Hiatal hernia Lung disease Psychiatric disorder Reflux ( GERD) sinusitis COPD Colitis Chicken pox Cholesterol Surgical History Surgery Date(Month/Year) cervical (spine?) surgery 2017 hernia [phone] peritonitis 2019
== END 2024-09-02 14:31 | disposition home or self-care (01) ==
PROVIDERS: PCP Internal Medicine; Visit Provider Internal Medicine
DX: J43.1 Panlobular emphysema (principal); Z87.891 Personal history of nicotine dependence; J30.9 Allergic rhinitis, unspecified
CPT/HCPCS: 99213

== ENCOUNTER → 2024-09-02 13:36 | Outpatient (BNVA) | payer OTHER, SELFPAY | PROVIDERS: PCP Internal Medicine; Visit Provider Internal Medicine | CPT/HCPCS: 99212 ==

== ENCOUNTER 2024-09-15 12:32 | Outpatient (REF) | payer OTHER, SELFPAY ==
[2024-09-15 13:31] LABS: Influenza A PCR NEGATIVE (Negative); Influenza B PCR POSITIVE (Negative); Resp Syncy Virus RNA Qual PCR NEGATIVE (Negative); SARS COV2 PCR INHOUSE NEGATIVE (Negative)
== END 2024-09-15 12:33 | disposition home or self-care (01) ==
LOC: HO.LAB 12:32
PROVIDERS: Visit Provider Internal Medicine
DX: R09.89 Other specified symptoms and signs involving the circulatory and respiratory systems (principal)
CPT/HCPCS: 0241U

== ENCOUNTER 2024-10-12 07:47 | Day surgery (SDC) | payer OTHER, SELFPAY ==
[2024-09-29 12:24] VITALS: BMI 29.1
[2024-09-29 12:31] VITALS: BP 127/70; PULSE 78; RESP 16; O2SAT 96
--- NOTE | 2024-09-29 12:41 | P.CONAN_ITS ---
Documented by User: Jerica Goddard NP 09/29/24 12:51 HPI - Anesthesia Eval Consult details Narrative: 63yo M for OPEN Repair Hernia Incisional, 10/12/[address] [facility] pulmo for COPD - stable and optimized for surgery per 08/2024 office visit [facility] for venous insufficiency. Xarelto Recent flu 2 weeks ago - resolving, residual cough at night time Anesthesia Pre-Procedure Meds Is the patient on any of the following meds?: GLP1/DPP4 PMFSH Active Problems Active Problems: All Active Problems Physical exam (Acute) Lumbar degenerative disc disease (Acute) Avulsion of toenail of left foot (Acute) Controlled type 2 diabetes mellitus (Acute) Venous insufficiency (Acute) Essential tremor (Acute) Insomnia (Acute) Mild major depression (Acute) Dyslipidemia (Acute) Sessile colonic polyp (Acute) Generalized anxiety disorder (Acute) Erectile dysfunction (Acute) BPH w urinary obs/LUTS (Acute) Incisional hernia (Acute) Hemorrhoids without complication (Acute) GUZMAN (nonalcoholic steatohepatitis) (Acute) Left inguinal hernia (Acute) Chronic idiopathic constipation (Acute) GERD (gastroesophageal reflux disease) (Acute) COPD (chronic obstructive pulmonary disease) (Acute) Personal history of nicotine dependence (Acute) Allergic rhinitis (Acute) OAB (overactive bladder) (Acute) Ulcerative colitis (Acute) Past Medical History Medical History (Updated 10/12/24 @ 08:03 by Jaleesa Shafer RN) Hepatitis Seasonal allergies Cough Hx of influenza Congestion of nasal sinus Type 2 diabetes mellitus OAB (overactive bladder) Hyperlipidemia LDL goal <70 Abdominal wall hernia Personal history of nicotine dependence History of COVID-19 Obesity (BMI 30-39.9) Insomnia COPD (chronic obstructive pulmonary disease) Allergic rhinitis Ulcerative colitis Family History Family History Father Diabetes HTN (hypertension) Heart attack Mother Skin cancer HTN (hypertension) Diabetes Paternal Aunt Heart attack Sister Skin cancer Family history of problems with anesthesia: No Surgical History Surgical History (Updated 09/29/24 @ 12:15 by Shbanam Dias RN) Hx of tonsillectomy History of incisional hernia repair History of cervical spinal surgery History of colonoscopy History of appendectomy (~2008) History of esophagogastroduodenoscopy (EGD) History of Problems with Anesthesia: No Social History Social History (Updated 09/29/24 @ 12:45 by Shabnam Dias RN) Household Members: Spouse Housing: Apartment Are you a primary cardiac care unit nurse to a significant other at home: No Do you presently have visiting nurse or other home services: No Alcohol intake: never Patient Tobacco Use Status: Former Tobacco user Tobacco use type: Cigarette Years Smoked: (former smoker - onset 15yo, 1ppd x 36yrs, 35pyh, quit 2011) e-Cigarette/Vaping Use: Never Used Second Hand Smoke Exposure: No Use of substances other than those prescribed or required for medical reasons: No Substance Use Type: Marijuana Have you been hit, kicked, punched, or otherwise hurt by someone within the past year? If so, by whom?: No Are you DNR?: No Advance Directives: No Advance Directives Information Provided: Yes Advance Directives on File: No Poor oral hygiene: Yes (one missing upper tooth) service: No Current occupational status: retired Cognitive needs: No Hearing needs: No Vision needs: No Meds Allergies Allergy/AdvReac Type Severity Reaction Status Date / Time Penicillins [PENICILLINS] Allergy Unknown ANAPHYLAXIS Verified 09/29/24 12:14 Home Medications ?Medication ?Instructions ?Recorded ?Confirmed ?Last Taken ?Type escitalopram oxalate 10 mg tablet 10 mg PO DAILY 01/18/21 09/29/24 Unknown History (Lexapro) aiculftn-vx-wcrrx 300 mcg-K 60 1 tab PO DAILY 01/18/21 09/29/24 Unknown History mcg-lycop 600 mcg-lutein 300 mcg tablet (Centrum Silver Men) emollient combination no.32 topical 08/13/21 09/02/24 Unknown History (EpiCeram topical emulsion, extended release) propranolol 80 mg capsule,24 80 mg PO BID 08/13/21 09/29/24 10/12/24 History hr,extended release triamcinolone acetonide 0.1 % 1 appl topical BID-TID 08/13/21 09/29/24 Unknown History topical cream ketoconazole 2 % topical cream appl topical DAILY PRN Rash 01/14/22 09/02/24 Unknown History clonazepam 1 mg tablet 1 mg PO .COMPLEX 01/21/22 09/29/24 Unknown History albuterol sulfate 2.5 mg/3 mL 2.5 mg inhalation Q6H PRN 05/16/22 09/29/24 Unknown History (0.083 %) solution for nebulization Shortness Of Breath Or Wheezing cyclosporine 0.05 % eye drops in a 1 drp ophthalmic (eye) BID 06/05/23 09/29/24 Unknown History dropperette bupropion HCl 150 mg 24 hr tablet, 150 mg PO DAILY 01/27/24 09/29/24 Unknown History extended release rivaroxaban 20 mg tablet (Xarelto) 20 mg PO DAILY 01/27/24 10/12/24 10/08/24 History Exam Height,Weight and Vital Signs: Height 5 ft 9 in Weight 89.358 kg Last Vital Signs Pulse 78 09/29/24 12:31 Resp 16 09/29/24 12:31 BP 127/70 09/29/24 12:31 Pulse Ox 96 09/29/24 12:31 O2 Del Method Room Air 09/29/24 12:31 Narrative Narrative: EKG 08/2024 SB @ 59 Airway Mallampati Class: II TM Dist: >3cm Neck ROM: Full Loose/Missing/Broken Teeth: Yes (#9 missing) Heart: RRR Lungs: CTAB Assessment and Plan Assessment Anesthesia Assessment: Anesthesia Plan Discussed and PAT Visit Final Anesthetic Review Family History of Problems with Anesthesia: No History of Problems with Anesthesia: No Documented by User: Panda Bhandari MD 10/12/24 10:39 [facility] Past Medical History Medical History (Updated 10/12/24 @ 08:03 by Jaleesa Shafer, CHRISS) Hepatitis Seasonal allergies Cough Hx of influenza Congestion of nasal sinus Type 2 diabetes mellitus OAB (overactive bladder) Hyperlipidemia LDL goal <70 Abdominal wall hernia Personal history of nicotine dependence History of COVID-19 Obesity (BMI 30-39.9) Insomnia COPD (chronic obstructive pulmonary disease) Allergic rhinitis Ulcerative colitis Family History Family History Father Diabetes HTN (hypertension) Heart attack Mother Skin cancer HTN (hypertension) Diabetes Paternal Aunt Heart attack Sister Skin cancer Surgical History Surgical History (Updated 09/29/24 @ 12:15 by Shabnam Dias RN) Hx of tonsillectomy History of incisional hernia repair History of cervical spinal surgery History of colonoscopy History of appendectomy (~2008) History of esophagogastroduodenoscopy (EGD) Social History Social History (Updated 09/29/24 @ 12:45 by Shabnam Dias RN) Household Members: Spouse Housing: Apartment Are you a primary cardiac care unit nurse to a significant other at home: No Do you presently have visiting nurse or other home services: No Alcohol intake: never Patient Tobacco Use Status: Former Tobacco user Tobacco use type: Cigarette Years Smoked: (former smoker - onset 15yo, 1ppd x 36yrs, 35pyh, quit 2011) e-Cigarette/Vaping Use: Never Used Second Hand Smoke Exposure: No Use of substances other than those prescribed or required for medical reasons: No Substance Use Type: Marijuana Have you been hit, kicked, punched, or otherwise hurt by someone within the past year? If so, by whom?: No Are you DNR?: No Advance Directives: No Advance Directives Information Provided: Yes Advance Directives on File: No Poor oral hygiene: Yes (one missing upper tooth) service: No Current occupational status: retired Cognitive needs: No Hearing needs: No Vision needs: No Meds Allergies Allergy/AdvReac Type Severity Reaction Status Date / Time Penicillins [PENICILLINS] Allergy Unknown ANAPHYLAXIS Verified 09/29/24 12:14 Home Medications ?Medication ?Instructions ?Recorded ?Confirmed ?Last Taken ?Type escitalopram oxalate 10 mg tablet 10 mg PO DAILY 01/18/21 09/29/24 Unknown History (Lexapro) pdnpvhek-tt-rtowo 300 mcg-K 60 1 tab PO DAILY 01/18/21 09/29/24 Unknown History mcg-lycop 600 mcg-lutein 300 mcg tablet (Centrum Silver Men) emollient combination no.32 topical 08/13/21 09/02/24 Unknown History (EpiCeram topical emulsion, extended release) propranolol 80 mg capsule,24 80 mg PO BID 08/13/21 09/29/24 10/12/24 History hr,extended release triamcinolone acetonide 0.1 % 1 appl topical BID-TID 08/13/21 09/29/24 Unknown History topical cream ketoconazole 2 % topical cream appl topical DAILY PRN Rash 01/14/22 09/02/24 Unknown History clonazepam 1 mg tablet 1 mg PO .COMPLEX 01/21/22 09/29/24 Unknown History albuterol sulfate 2.5 mg/3 mL 2.5 mg inhalation Q6H PRN 05/16/22 09/29/24 Unkn own History (0.083 %) solution for nebulization Shortness Of Breath Or Wheezing cyclosporine 0.05 % eye drops in a 1 drp ophthalmic (eye) BID 06/05/23 09/29/24 Unknown History dropperette bupropion HCl 150 mg 24 hr tablet, 150 mg PO DAILY 01/27/24 09/29/24 Unknown History extended release rivaroxaban 20 mg tablet (Xarelto) 20 mg PO DAILY 01/27/24 10/12/24 10/08/24 History Assessment and Plan Assessment Anesthesia Assessment: Chart Reviewed Final Anesthetic Review NPO: Yes ASA Class: III Final Preanesthetic Review: No Changes in Pt Med Stat, Meds/Allgs Chart Reviewed, Consent Obtained/Reviewed and Anes Risks/Benef Reviewed Patient Risk: Intermediate Procedure Risk: Low Anesthetic Plan Anesthetic Plan: GA and Agree w/ Assess. and Plan Disposition: Standard PACU
[2024-09-29 13:36] LABS: Hematocrit 43.4 % (42.0-52.0); Hemoglobin 14.9 g/dl (14.0-18.0); Mean Corpuscular HGB Conc 34.3 g/dl (31.0-36.0); Mean Corpuscular Volume 87.3 fL (80.0-98.0); Platelet Count 220 X10*3/uL (160-400); Red Blood Count 4.97 X10*6/uL (4.60-5.80); Red Cell Distribution Width 13.7 % (11.0-16.0); White Blood Count 9.8 X10*3/uL (4.8-10.8)
[2024-09-29 13:38] LABS: Estimated Average Glucose 120 mg/dL; Hemoglobin A1C 156.6867 umol/L; Hemoglobin A1c % 5.8 % (<6.0); Total Hemoglobin (HGBA1C) 3976.8506 umol/L
[2024-09-29 14:11] LABS: Anion Gap 11 (12-20); Blood Urea Nitrogen 12 mg/dL (9-16); Calcium 9.3 mg/dL (8.4-10.2); Carbon Dioxide 26 mmol/L (22-29); Chloride 107 mmol/L (96-108); Creatinine Clr Calc Pharmacy 100.7; Estimated Glomerular Filt Rate > 60; Glucose Random 119 mg/dL (60-115); Potassium 4.2 mmol/L (3.3-5.1); Sodium 140 mmol/L (135-145)
[2024-10-12] VITALS (7 sets, daily range): BP systolic 115–124; BP diastolic 67–82; PULSE 63–75; RESP 12–18; TEMP 36.2–36.6; O2SAT 94–97; BMI 29.2
--- NOTE | 2024-10-12 08:30 | MHC.SHP ---
Pre-Procedural Eval Section A - 24 Hr Update-Section A only Date of Service: 10/12/24 Section B - Complete if H&P > 30 days Chief Complaint: Incisional hernia without obstruction or gangrene Details of Present Illness: Has small fat containing incisional hernia on the upper abdomen Relevant Family History (Specify if Yes): No Relevant Social History: None Present Medications: see Short Stay Collaborative assessment Medical History: Significant History (Tremors, diabetes, COPD, smoker) History of Previous Operations: Relevant previous surgery/procedure and date(s) (Previous incisional hernias) Allergies: Allergies Allergy/AdvReac Type Severity Reaction Status Date / Time Penicillins [PENICILLINS] Allergy Unknown ANAPHYLAXIS Verified 09/29/24 12:14 Review of Systems Sugical H&P ROS: Negative: Constitution, Cardiovascular, Respiratory and Gastrointestinal Exam Surgical H&P Exam: Normal: Heart, Normal: Lungs and Normal: Abdomen Plan Diagnosis/Plan: Unchanged I have reviewed the history and physical and performed a pertinent physical examination on my patient. No changes have occurred unless specified. Time Spent With Patient Time: Total time managing care of this patient today ____ minutes.
[2024-10-12] MEDS: Lactated Ringers 1,000 ML 100 ML IVCONT (08:36)
[2024-10-12 08:37] LABS: Glucose, Whole Blood 104 mg/dL (60-115)
[2024-10-12] MEDS: vancomycin HCL 1,500 MG in 0.9 % Sodium Chloride 500 ML 333.33 MG IV (09:49)
--- NOTE | 2024-10-12 10:49 | W.PM.OPN ---
Operative Note Operative Note Date of Service: 10/12/24 Narrative: Preop diagnosis: Incisional hernia, reducible Postop diagnosis: The same Procedure: Repair of incisional hernia with Phasix mesh Surgeon: Joey Talbert MD front end assistant: PJ Mckeon The patient is a 63-year-old male who has had a previous long laparotomy incision for complicated diverticulitis in [place] in 2008. He has had multiple incisional hernias repaired in the past He presents with another hernia in the epigastric area that seemed to be reducible, fat containing. This has vague margins on physical exam. Understood the technique of the planned procedure as well as the risks, benefits, and alternatives He was brought to the operating room. He was placed supine under general anesthesia via laryngeal mask airway. The abdomen was prepped and draped in the usual sterile fashion. A surgical time-out was done. The patient received vancomycin preop because of a penicillin allergy He had a short incision on the skin overlying the palpable hernia with a blade 15. This carried down through the full-thickness of the skin and subcutaneous fat. I dissected to fibrotic subcutaneous fat. I expose the fascia and palpated for any hernia. There was note of an area of thinning and bulging with fat consistent with an incisional hernia. I opened this up and entered the peritoneal cavity. This defect was about 2 cm. I palpated the surrounding areas and there were no other palpable defects. There was no bowel loops under direct visualization of the underside of the fascia. This was note did to contain only fat I therefore proceeded to position a small-sized Phasix mesh. This has position flat under the fascial layer. I secured the straps of the mesh to the fascial defect on both sides with Prolene 2 sutures. I closed the fascia with a [id number] Maxon 1 stitch The straps were then trimmed flush The cutaneous layer was reapposed with Polysorb 3-0 simple interrupted sutures. Skin closure was achieved with Polysorb 4-0 subcuticular running sutures. The incision was infiltrated with Marcaine 0.5% for postop analgesia. Dressings were applied. The procedure was completed The patient tolerated procedure well. There were no immediate complications. Initial and final counts of sponges and instruments were correct. The The procedure was then completed The patient tolerated procedure well. There were no immediate complications. The patient was extubated without difficulty and transferred to the recovery room stable vital signs.
[2024-10-12] MEDS: oxyCODONE HCl Immed Release 5 MG TABLET PO (11:16)
[2024-10-12] MEDS: fentaNYL citrate/PF 100 MCG/2 ML VIAL 50 MCG IVPUSH ×2 (11:16→11:21)
== END 2024-10-12 13:02 | disposition home or self-care (01) ==
PROVIDERS: Nurse Practitioner; PCP Internal Medicine; Visit Provider Surgery
PROC: (CPT 49613; principal; 2024-10-12 09:30)
DX: K43.2 Incisional hernia without obstruction or gangrene (principal); Z87.19 Personal history of other diseases of the digestive system; K51.90 Ulcerative colitis, unspecified, without complications; J44.9 Chronic obstructive pulmonary disease, unspecified; E78.5 Hyperlipidemia, unspecified; E11.9 Type 2 diabetes mellitus without complications; Z79.51 Long term (current) use of inhaled steroids; Z79.84 Long term (current) use of oral hypoglycemic drugs; Z79.85 Long-term (current) use of injectable non-insulin antidiabetic drugs; Z79.899 Other long term (current) drug therapy; Z88.0 Allergy status to penicillin; Z98.890 Other specified postprocedural states; Z87.891 Personal history of nicotine dependence
CPT/HCPCS: 49613; 36415; 80048; 82947; 83036; 85027; C1781; J2003; J2704; J2795; J3010; J3371

== ENCOUNTER → 2024-10-12 07:47 | Outpatient (BNV) | payer OTHER, SELFPAY | PROVIDERS: PCP Internal Medicine; Visit Provider Surgery | DX: K43.2 Incisional hernia without obstruction or gangrene (principal) | CPT/HCPCS: 49591 ==

== ENCOUNTER → 2024-10-19 13:27 | Outpatient (BNVA) | payer OTHER, SELFPAY | PROVIDERS: PCP Internal Medicine; Visit Provider Dietitian, Registered | DX: E11.9 Type 2 diabetes mellitus without complications (principal); Z71.3 Dietary counseling and surveillance | CPT/HCPCS: 97803 ==

== ENCOUNTER 2024-10-21 09:59 | Outpatient (AMB) | payer OTHER, SELFPAY ==
--- NOTE | 2024-10-21 10:12 | MHC.OFFVIS ---
Vital Signs 10/21/24 10:13 Height 5 ft 9 in Weight 196 lb 2 oz BMI 29.0 BP 128/60 Blood Pressure Location Lt brachial Position Sitting Pulse 75 Intake Visit Reasons: s/p incisional hernia repair Intake Note: Patient is seen in office for post op assessment post incisional hernia Patient c/o: admits to constipation first couple of days, has resume normal bm, incision healing well Surgery: 10-12-2024. Slip Cover Cutter Required: No Accompanied by: Self / Same As Patient Allergies Penicillins [PENICILLINS] Allergy (Unknown, Verified 10/21/24 10:13) ANAPHYLAXIS HPI HPI s/p incisional hernia repair: Details: He underwent repair of an incisional hernia with mesh last October 12. He tolerated procedure well. He currently denies significant complaints. He does state that he was constipated last week. [facility] Medical History Incisional hernia (10/12/24) Hepatitis Seasonal allergies Cough Hx of influenza Congestion of nasal sinus Type 2 diabetes mellitus OAB (overactive bladder) Hyperlipidemia LDL goal <70 Abdominal wall hernia Personal history of nicotine dependence History of COVID-19 Obesity (BMI 30-39.9) Insomnia COPD (chronic obstructive pulmonary disease) Allergic rhinitis Ulcerative colitis Surgical History Hx of tonsillectomy History of incisional hernia repair History of cervical spinal surgery History of colonoscopy History of appendectomy (~2008) History of esophagogastroduodenoscopy (EGD) Family History Father Diabetes HTN (hypertension) Heart attack Mother Skin cancer HTN (hypertension) Diabetes Paternal Aunt Heart attack Sister Skin cancer Social History Household Members: Spouse Housing: Apartment Are you a primary infant childcare provider to a significant other at home: No Do you presently have visiting nurse or other home services: No Alcohol intake: never Patient Tobacco Use Status: Former Tobacco user Tobacco use type: Cigarette Years Smoked: (former smoker - onset 15yo, 1ppd x 36yrs, 35pyh, quit 2011) e-Cigarette/Vaping Use: Never Used Second Hand Smoke Exposure: No Substance Use Type: Marijuana service: No Current occupational status: retired Cognitive needs: No Hearing needs: No Vision needs: No Review of Systems Const Denies chills and Denies fever(s) Card Denies chest pain GI Reports constipation Physical Exam Vital Signs: Last Vital Signs Pulse 75 10/21/24 10:13 BP 128/60 10/21/24 10:13 BMI result Body Mass Index 29.0 Const General: comfortable and no acute distress Resp Effort & Inspection: normal respiratory effort GI Other: Incisional hernia repair site well healed, clean, dry, repair intact Palpation (GI): Soft to palpation Assessment & Plan Assessment & Plan (1) Incisional hernia: Code(s): K43.2 - Incisional hernia without obstruction or gangrene Category: Medical Plan: Status post repair with mesh. He is doing very well. The repair site is intact. I advised him to avoid lifting anything more than 20 lb for at least 1 more month and he can follow up on a p.r.n. basis Coding Level of Care Code Global (44311) Diagnoses Incisional hernia K43.2
[2024-10-21 10:13] VITALS: BP 128/60; PULSE 75; BMI 29.0
--- OUTSIDE RECORDS SUMMARY | 2024-10-21 11:22 | XMS_ITS | Encounter Summary ---
Author Organization [employer] Address [address] [place] [address] Care Team Providers Care Fuse Spooler Name Role Phone Unavailable Primary Care Provider Unavailabl e Encounter Details Date Type Department Care Team (Late Contact Info) Description 10/08/[address] [facility] [address] [place] [address] Raymundo, Erum [address] [place] [address] Social History Tobacco Use Types Packs/Day Years [...] Description 10/27/2024 3:00 PM EDT Office Visit [facility] [address] [place] [address] Sainya Veliz, OD [address] [place] [address] 12/08/2024 3:00 PM EDT Office Visit [facility] [address] [place] [address] Erum Fonseca [address] [place] [address] documented as of this encounter Visit Diagnoses Not on filedocumented in this encounter
--- OUTSIDE RECORDS SUMMARY | 2024-10-21 11:22 | XMS_ITS | Clinical Summary ---
Author Organization [employer] Address [address] [place] [address] Care Team Providers Care Lift Electrician Name Role Phone Unavailable Primary Care Provider [...] daily. 3 Active Lancets (OneTouch Delica Plus [id number]) misc USE ONCE DAILY 3 Active OneTouch [...] Type Department Care Team Description 07/27/2024 Telephone [facility] [address] [place] [phone] Sachin Dawkins MD from Last 3 [...] Description 10/27/2024 3:00 PM EDT Office Visit [facility] [address] [place] [address] Jose Alfredo, Saniya, OD [address] [place] [address] 12/08/2024 3:00 PM EDT Office Visit [facility] [address] [place] [address] Raymundo, Erum [address] [place] [address] Health Maintenance Due Date Last Done Comments [...] Pneumococcal Vaccine: 50+ Years Completed 11/07/2022, 02/23/2018 HIB Vaccines Aged Out [...] Most Recently Relevant to Health Maintenance Insurance [facility]
--- OUTSIDE RECORDS SUMMARY | 2024-10-21 11:22 | XMS_ITS | Data Portability ---
Author Organization [facility] [place] [facility], [place] in - [facility] Address [address] [place] [address] Care Team Providers Care Board Filler Name Role Phone HIM RICKEY OTHER Assessment Encounter Date Assessment Date Assessment LastModified by Organization Details LastModified Time 09/15/2024 09/15/2024 service called for headache found 63 yom with hx T2DM DAVID IBD c/o body ache, fever, sweats x4d +Flu B able conitnue PO fluids loss appetitie VSS strep neg #Influenza B stable tamiflu x1 now follow on course supportive care notify service if worsening otherwise return to ptimary team vkudesia Not available 09/15/2024 21:15:20 Plan of Treatment Reminders Order Date Submit Date Provider Last Modified By Organization Details Last Modified Time Details Appointments None recorded. Lab rapid strep group A, [facility]24 [facility] [address] [place] [address], [phone] 21:55:34 Referral None recorded. Procedures None recorded. Surgeries None recorded. Imaging None recorded. Medication Orders oseltamivir 75 mg capsule 2024 025 [facility] #[id number], [address] [place], [place], [id number], 21:08:58 Tamiflu 75 mg capsule 2024 025 [facility][id number], [address] [place], [place], [id number], 21:09:03 Patient TargetsNo targets recorded. Patient InstructionsNo instructions recorded. Reason for Referral None Reported. Results Created Date Observation Date Name Description Value Unit Range Abnormal Flag Note LastModifiedBy Organization Detail LastModifiedTime 09/16/1909/15/2024 rapid strep group A, throa t Strep negati ve Not Available Main - [facility] [place] ed [address] [facility], [place], [address] 09/15/2024 21:14:27 Result Notes None recorded. Medical Equipment None Reported. Allergies Allergen ID Allergen Name Allergen Category Reaction Reaction Severity Criticality Documentation Date Start Date Code Code System Note Provider Name and Address Organization Details Recorded Time 57259 Product containin g penicilli n (product) medicatio n Not available Not available Not available 09/15/2024 27948 8001 SNOMED Not Available [facility] - production 20:03:25 Medications Name Sig Start Date Stop Date Status Note LastModified by Organization Details LastModified Time metformin 500 mg tablet TAKE 1 TABLET BY MOUTH TWICE DAILY active Not Available Not Available No t Available diclofenac 3 % topical gel APPLY TOPICALLY TO THE AFFECTED AREA TWICE DAILY NEEDED FOR PAIN active Not Available Not Available No t Available oxybutynin chloride ER 15 mg tablet,exten ded release 24 hr TAKE 1 TABLET BY MOUTH DAILY. REPLACE OXYBUTYNIN 10 MG active Not Available Not Available No t Available atorvastatin 20 mg tablet TAKE 1 TABLET BY MOUTH AT BEDTIME active Not Available Not Available No t Available oxybutynin chloride ER 10 mg tablet,exten ded release 24 hr TAKE 1 TABLET BY MOUTH DAILY active Not Available Not Available Not Available FreeStyle Lancets 28 gauge TEST BLOOD SUGAR EVERY DAY active Not Available Not Available No t Available polyvinyl alcohol 1.4 % eye drops PLACE 1 DROP IN EACH EYE FOUR TIMES DAILY active Not Available Not Available No t Available clonazepam 0.5 mg tablet TAKE 1 TABLET BY MOUTH EVERY MORNING AND TAKE 2 TABLETS BY MOUTH EVERY NIGHT AT BEDTIME active Not Available Not Available No t Available meloxicam 7.5 mg tablet TAKE 1 TABLET BY MOUTH DAILY. DO NOT TAKE WITH OTHER NSAIDS active Not Available Not Available No t Available dicyclomine 20 mg tablet TAKE 1 TABLET BY MOUTH TWICE DAILY active Not Available Not Available No t Available OneTouch Ultra Test strips USE TO CHECK BLOOD SUGAR ONCE A DAY active Not Available Not Available No t Available oseltamivir 75 mg capsule TAKE 1 CAPSULE BY MOUTH TWICE DAILY FOR 5 DAYS active Not Available Not Available No t Available propranolol ER 80 mg capsule,24 hr,extended release TAKE 1 CAPSULE BY MOUTH TWICE DAILY active Not Available Not Available No t Available montelukast 10 mg tablet TAKE 1 TABLET BY MOUTH DAILY active Not Available Not Available Not Available ketoconazole 2 % topical cream APPLY TO FACE TWICE DAILY NEEDED FOR SCALES active Not Available Not Available No t Available fluticasone propionate 50 mcg/actuatio n nasal spray,suspen lauryn SHAKE LIQUID AND USE 2 SPRAYS IN EACH NOSTRIL DAILY FOR ALLERGIC RHINITIS active Not Available Not Available No t Available metformin ER 500 mg tablet,exten ded release 24 hr TAKE ONE TABLET BY MOUTH EVERY DAY active Not Available Not Available No t Available doxycycline hyclate 100 mg tablet TAKE 1 TABLET BY MOUTH TWICE DAILY FOR 10 DAYS FOR BRONCHITIS active Not Available Not Available N ot Available Ventolin HFA 90 mcg/actuatio n aerosol inhaler INHALE 2 PUFFS BY MOUTH FOUR TIMES DAILY NEEDED FOR WHEEZING active Not Available Not Available No t Available ciclopirox 0.77 % topical cream APPLY TOPICALLY TO THE AFFECTED AREA TWICE DAILY active Not Available Not Available No t Available escitalopram 10 mg tablet TAKE 1 TABLET BY MOUTH DAILY active Not Available Not Available Not Available cyclosporine 0.05 % eye drops in a dropperette INSTILL 1 DROP IN BOTH EYES TWICE DAILY active Not Available Not Available Not Available bupropion HCl XL 300 mg 24 hr tablet, extended release TAKE 1 TABLET BY MOUTH DAILY active Not Available Not Available Not Available bupropion HCl XL 150 mg 24 hr tablet, extended release TAKE 1 TABLET BY MOUTH DAILY active Not Available Not Available Not Available tadalafil 5 mg tablet TAKE ONE TABLET BY MOUTH DAILY. active Not Available Not Available No t Available mesalamine 1.2 gram tablet,delay ed release TAKE 2 TABLETS BY MOUTH DAILY active Not Available Not Available Not Available dexlansopraz ole 60 mg capsule,biph ase delayed release TAKE 1 CAPSULE BY MOUTH DAILY active Not Available Not Available Not Available Xarelto 20 mg tablet TAKE 1 TABLET BY MOUTH DAILY WITH FOOD active Not Available Not Available No t Available Myrbetriq 25 mg tablet,exten ded release TAKE 1 TABLET BY MOUTH DAILY active Not Available Not Available Not Available Jardiance 10 mg tablet TAKE 1 TABLET BY MOUTH DAILY active Not Available Not Available Not Available Trulicity 1.5 mg/0.5 mL subcutaneous pen injector ADMINISTER 1.5 MG UNDER THE SKIN EVERY WEEK active Not Available Not Available No t Available Trulicity 0.75 mg/0.5 mL subcutaneous pen injector ADMINISTER 0.75 MG UNDER THE SKIN EVERY WEEK active Not Available Not Available No t Available Incruse Ellipta 62.5 mcg/actuatio n powder for inhalation INHALE 1 PUFF BY MOUTH DAILY active Not Available Not Available Not Available naloxone 4 mg/actuation nasal spray CALL 911. SPR CONTENTS OF ONE SPRAYER (0.1ML) INTO ONE NOSTRIL. REPEAT IN 2-3 MIN IF SYMPTOMS OF OPIOID EMERGENCY PERSIST, ALTERNATE NOSTRILS active Not Available Not Available No t Available OneTouch Delica Plus Lancet 30 gauge DIRECTED TO TEST BLOOD SUGAR THREE TIMES DAILY active Not Available Not Available No t Available Vitals Date Recorded Heart rate Respiratory rate Oxygen saturation Oxygen saturation in Arterial blood by Pulse oximetry Body temperature Systolic blood pressure Diastolic blood pressure Provider Name and Address Organization Details Last Updated DateTime 5 77 /min 18 /min 96 % 96 % 98.1 [degF] 121 mm[Hg] 65 mm[Hg] Not Available [facility] - production 5 21:01:21 Social History None recorded. Functional Status None recorded. Mental Status None recorded. Family History Nothing Reported. Medical History No medical history recorded. Past Encounters Encounter ID Performer Location Encounter Start Date Encounter Closed Date Diagnosis/Indication Diagnosis SNOMED-CT Code Diagnosis ICD10 Code Diagnosis Note [id number] Rhett Menendez MD Main - [facility] [address] [place] [phone] 09/15/2024 21:01:19 09/20/2024 22:21:01 Influenza caused by Influenza A virus 049226195 J09.X2 Health Concerns Section Related Observation LastModified by Organization Detai ls LastModified Time None Recorded Concern Status LastModified by Organization Details LastModified Time None Recorded Advance Directives Directive None Recorded Payers Encounter Date Sequence Insurance Name Policy Number Policy Smith Covered Member ID Smith Member ID Guarantor Name 09/15/2024 1 [facility] - DOS ON OR AFTER 2022 - DUAL ELIGIBLE - CORRECTION OPTIONS AND ONE CARE (MEDICARE REPLACEMENT/ADV ANTAGE - HMO) Kali Nicholas [id number] Kali Nicholas Notes Date Note Type Note Provider Name and Address Organization Details Recorded Time 09/15/2024 text/html [facility] Nurse Triage Notes (Claritza Best): Reason For Request: Yesterday pt has general illness symtpomsTested positive for Flu Yesterday, flu likesymptoms, fever, pain coughing, head pain. Denies: Increased work of breathing/labored ? with or without fever Unable to speak in full sentences without distress Discoloration of skin -cyanosis Needs to sleep sitting up, can? t catch breath Shortness of breath in setting of confusion Chief Complaints: Cough, Common Cold, Breathing Problems PMH: Diabetes Mellitus Type 2, Sleep Apnea, Inflammatory Bowel Disease (Crohn's Disease, Ulcerative Colitis), Appendectomy PMH Reviewed at 09/15/2024 - : Allergies Reviewed at 09/15/2024 - : Comments: PMH- colitis Referral taken via Executive Vice President And Chief Operating Officer. Patient calling in to place a referral, identified via name and . Patient got tested this afternoon and tested Flu+, however, no one has called him or prescribed any medications. He has been symptomatic for 3 days. Patient reports a strong, productive cough causing chest pain, shortness of breath as well as nausea and vomiting, +sore throat, +body aches, +headache and dizziness, subjective fevers, no chills. He is concerned that he is diabetic and he is unable to eat, and takes Trulicity. He also reports being unable to sleep. Chemical Test Engineer Organization Information for [facility] Business Legal Name: [employer]? Address: [address] [place] [address], Printed Circuit Board Assembler: Max Carlos MD JERICA No.: [id number] Chemical Test Engineer POC Test Results from [facility] Rapid strep test (20:56:47) Strep: - .................... .................... .................... .................... .................... .................... .................... . Chemical Test Engineer Note From [facility]: Sent to a call for a pt complaining of flu symptoms. [facility] arrives on scene, pt is alert and oriented, airway is patent. Pt complains of cough starting Friday night, with the following symptoms starting Friday. prather, productive cough (green phlegm noted this morning), sore throat,cp with cough, nausea, body pain, and sweating. Pt also complains of chronic abd pain. Pt denies vomiting, diarrhea, fever, or loc. Pt states he contacted PCP office yesterday, and PCP sent orders for Flu/covid/RSV to lab. Pt tested positive for Flu B today, Flu A:neg; Covid: neg; RSV: neg; according to pt's portal. Pt has been using otc cough/congestion medicine and Tylenol for symptoms. Pt states he is eating/drinking small amounts, but states it's difficult due to lots of phlegm/coughing. BP:121/65, P:77, RR:18, SpO2:96% RA, T:98.1; Head: unremarkable; Lung sounds: clear bilaterally; Abdomen: soft, non-tender, no distention; Back: unremarkable; Extremities: unremarkable; Skin: pink, warm, dry; Rapid strep test: neg; [facility] consulted and orders Tamiflu 75mg PO. [facility] sends script to pt's pharmacy for Tamiflu to start tomorrow. Tamiflu 75mg PO administered without incident. Red flags discussed. Pt has no further questions. [facility] Lab Orders: rapid strep group A, throat: Performed .................... .................... .................... .................... .................... .................... .................... . [facility] Consulted: Rhett Menendez .................... .................... .................... .................... .................... .................... .................... . Disposition: Fulfilled Rhett Menendez MD [address] [facility], [place], [address], [place] - STEPHANIE BERG 09/20/2024 21:55:36
--- OUTSIDE RECORDS SUMMARY | 2024-10-21 11:22 | XMS_ITS ---
Author Organization [facility] Address [address] [facility] [place] [address] Care Team Providers Care Band Cutter Name Role Phone Shelli Moore MD Primary Care Provider Unavail able Juany Munson Unavailable [phone] Allergies Allergen (clinical drug ingredient) Drug/Non Drug [...] Active Proctosol HC 2.5 % 1 application Social Media Analyst ally Twice a day Active oxyBUTYnin Active [...] 024 Encounters Encounter Location Date Provider Diagnosis [facility] [address] [address] 06/15/2024 Juany Munson Tinea pedis of both [...] Luna Linh luna, 11/19/2024 01:00:00 PM, [address] [place], [address], Procedure Notes * Category Sub-Category Detail Notes Wart Treatment Procedure Verrucae were de brided to pin-point bleeding margins with sterile 15 surgical blade, silver nitrate chemocautery applied, recomm. immune-boosting meds such as zinc, recomm. follow up with topical chemosurgical agents, Pt defers any other forms of tx (14806) Debride Nail 6-10 Nail debridement Due to [...] use of a nail nipper and/or dremel-type grinder chipper, to a more viable healthy nail plate [...] to maintain effectiveness in symptomatic relief - 89101 Keratoma Treatment Parring or Cutting o f [...] instrumentation by the physician of record - 12201 Progress Notes * Viridiana MUNOZOB: (63 yo M)Acc No.[id number]:06/15/2024 Progress Note Patient:Kali RAMIREZ Provider:?Juany Munson DPM :1960???Age:63 Y???Sex:Male Constantin e:06/15/2024 Address: [address] , [place], [place] Pcp:Shelli Moore MD Subjective: * Chief Complaints: [...] use of a nail nipper and/or dremel-type grinder chipper, to a more viable healthy nail plate [...] to maintain effectiveness in symptomatic relief - 81812.?Keratoma Treatment:?Parring or Cutting of Benign Hyperkeratotic Lesion(s)?(-57) [...] instrumentation by the physician of record - 88063.?Wart Treatment:?Procedure?Verrucae were debrided to pin-point bleeding margins with sterile 15 surgical blade, silver nitrate chemocautery applied, recomm. immune-boosting meds such as zinc, recomm. follow up with topical chemosurgical agents, Pt defers any other forms of tx (03121).? * Procedure Codes:?01105 DEBRI DE NAIL, 6 OR MORE, Modifiers: XS 82018 Wart Destruction, 1-14, Modifiers: XS 69385 TRIM SKIN LESIONS, OVER 4, Modifiers: XS [...] Munson DPM Date:? Generated for Tiesha rodriguez/Pan/Kirk on:?10/21/2024 11:21 AM EDT History and Physical Notes * HPI (History [...] diameter , plantar Forefoot , LEFT Orthopedic FOOTWEAR EVALUATION: fair condition MUSCLE STRENGTH: 5/5 all groups [...]
--- OUTSIDE RECORDS SUMMARY | 2024-10-21 11:22 | XMS_ITS ---
Author Organization [facility] Address [address] [facility] [address] Care Team Providers Care Supervisor Electronics Assembly Name Role Phone Shelli Moore MD Primary Care Provider Unavail able Juany Munson Unavailable [phone] Allergies Allergen (clinical drug ingredient) Drug/Non Drug [...] Active Proctosol HC 2.5 % 1 application Master Tax Advisor ally Twice a day Active Escitalopram Oxalate [...] Problem Acquired hammer toe of right foot (7719381339416 105) Other hammer toe(s) (acquired), right foot (M20.41) Active confirmed Problem Acquired hammer toe of left foot (9704309204914 103) Other hammer toe(s) (acquired), left foot (M20.42) Active confirmed Vital Signs Height 5ft9in in 09/01/2024 Weight 202 lbs 09/01/2024 BMI 29.83 kg/m2 09/01/2024 Blood pressure systolic 118 mm Hg 09/02/19 25 Blood pressure diastolic 70 mm Hg 025 Encounters Encounter Location Date Provider Diagnosis [facility] [address] [address] 09/01/2024 Juany Munson Tinea pedis of both [...] Reason: Provider Name:Juany luna, 11/19/2024 01:00:00 PM, [address] [place] [address], [phone], Procedure Notes * Category Sub-Category Detail Notes Wart Treatment Procedure Verrucae were de brided to pin-point bleeding margins with sterile 15 surgical blade, silver nitrate chemocautery applied, recomm. immune-boosting meds such as zinc, recomm. follow up with topical chemosurgical agents, Pt defers any other forms of tx (27418) Debride Nail 6-10 Nail debridement Due to [...] use of a nail nipper and/or dremel-type rail grinder, to a more viable healthy nail [...] to maintain effectiveness in symptomatic relief - 29320 Keratoma Treatment Parring or Cutting o f [...] instrumentation by the physician of record - 72608 Progress Notes * Viridiana MUNOZOB: 1 (63 yo M)Acc No.[id number]:09/01/2024 Progress Note Patient:?Kali MUNOZ Provider:?Juany Munson DPM :1960???Age:63 Y???Sex:Male Constantin e:09/01/2024 Address: [address] , [place] Pcp:Shelli Moore MD Subjective: * Chief Complaints: [...] erruptionsyes[Allergies Verified] Objective: * Vitals:?Ht:5ft9in, Wt:202, B SD:29.83, Shoe size:12, BP:118/70mm Hg, BS:137, Ht- cm: [...] use of a nail nipper and/or dremel-type rail grinder, to a more viable healthy nail [...] to maintain effectiveness in symptomatic relief - 94748.?Keratoma Treatment:?Parring or Cutting of Benign Hyperkeratotic Lesion(s)?(-57) [...] instrumentation by the physician of record - 82554.?Wart Treatment:?Procedure?Verrucae were debrided to pin-point bleeding margins with sterile 15 surgical blade, silver nitrate chemocautery applied, recomm. immune-boosting meds such as zinc, recomm. follow up with topical chemosurgical agents, Pt defers any other forms of tx (34757).? * Procedure Codes:?25069 DEBRI DE NAIL, 6 OR MORE, Modifiers: XS 19907 Wart Destruction, 1-14, Modifiers: XS 87484 TRIM SKIN LESIONS, OVER 4, Modifiers: XS [...] Munson DPM Date:?10/2024 Generated for Tiesha rodriguez/Pan/Kirk on:?10/21/2024 11:21 AM [...] Forefoot , LEFT Orthopedic FOOTWEAR EVALUATION: fair condit ion , worn, non-supportive, shoe gear properties exacerbate [...]
--- OUTSIDE RECORDS SUMMARY | 2024-10-21 11:22 | XMS_ITS ---
Author Organization [facility] Address [address] [place] [address] Care Team Providers Care Fuel Efficient Aircraft Designer Name Role Phone Shelli Moore MD Primary Care Provider Unavail able Juany Munson Unavailable [phone] REASON FOR VISIT seen 04/01/2024 Encounters Encounter Location Date Provider Diagnosis [address] [address] 04/06/2024 Juany Munson Plan Of Treatment Next Appt Details Provider Name:Juany luna, 11/19/2024 01:00:00 PM, [address] [place] [address], [phone], Progress Notes * Huber MUNOZoDOB: (63 yo M)Acc No.[id number]:04/06/2024 Progress Note Patient:?Kali MUNOZ Provider:?Juany Munson DPM :1960???Age:63 Y???Sex:Male Constantin e:04/06/2024 Address[address] [place] Pcp:Shelli Moore MD Subjective: * Chief Complaints: [...] Munson DPM Date:?01/2024 Generated for Tiesha rodriguez/Pan/Kirk on:?10/21/2024 11:21 AM EDT
--- OUTSIDE RECORDS SUMMARY | 2024-10-21 11:22 | XMS_ITS | Patient Health Record ---
Author Organization [facility] Address [address] [facility] [place] [address] Care Team Providers Care Animal Husbandry Teacher Name Role Phone Teresa ELLIS, Shelli Primary Care Provider Unavail able Juany Munson Unavailable [phone] Allergies Allergen (clinical drug ingredient) Drug/Non Drug [...] Active Proctosol HC 2.5 % 1 application Scout Sniper ally Twice a day Active Escitalopram Oxalate [...] Problem Acquired hammer toe of right foot (800546962250 9105) Other hammer toe(s) (acquired), right foot (M20.41) Active confirmed Problem Acquired hammer toe of left foot (962991048001 9103) Other hammer toe(s) (acquired), left foot (M20.42) Active confirmed Problem 35680149 Plantar wart (B07.0) Active confirmed Problem 72936959 Type 2 diabetes mellitus with polyneuropathy (E11.42) Active confirmed Vital Signs Blood pressure diastolic 70 mm Hg 09/01/2024 Height 5ft9in in 09/01/2024 Blood pressure systolic 118 mm Hg 09/01/2024 Weight 202 lbs 09/01/2024 BMI 29.83 kg/m2 09/01/2024 Encounters Encounter Location Date Provider Diagnosis [address] [address] 11/04/2023 Juany Perica Tinea pedis of both feet B35.3 ; Tinea unguium B35.1 ; Type 2 diabetes mellitus with polyneuropathy E11.42 ; Plantar wart B07.0 and Pain in left foot M79.[address] [address] 01/28/2024 Juany Perica Tinea pedis of both feet B35.3 ; Tinea unguium B35.1 ; Type 2 diabetes mellitus with polyneuropathy E11.42 ; Plantar wart B07.0 and Pain in left foot M79.[address] [address] 04/01/2024 Juany Perica Tinea pedis of both feet B35.3 ; Tinea unguium B35.1 ; Type 2 diabetes mellitus with polyneuropathy E11.42 ; Plantar wart B07.0 and Pain in left foot M79.[address] [address] 06/15/2024 Juany Perica Tinea pedis of both feet B35.3 ; Tinea unguium B35.1 ; Type 2 diabetes mellitus with polyneuropathy E11.42 ; Plantar wart B07.0 and Pain in left foot M79.672 [facility] [address] [address] 09/01/2024 Juany Munson Tinea pedis of both feet B35.3 ; Other hammer toe(s) (acquired), right foot M20.41 ; Tinea unguium B35.1 ; Type 2 diabetes mellitus with polyneuropathy E11.42 ; Plantar wart B07.0 ; Pain in left foot M79.672 and Other hammer toe(s) (acquired), left foot M20.42 [facility] [address] [address] 01/14/2024 Juany Munson Assessments Encounter Date Diagnosis [...] Details Provider Name:Juany luna, 11/19/2024 01:00:00 PM, [address] [place] [address], [phone], Insurance Providers Payer Name Payer Address Payer Phone Subscriber Number Group Number Insured Name Patient Relationship to Insured Coverage Start Date Coverage End Date [facility] [employer] Claims [address] [place] [address] [place] [id number] Kali Munoz Self - patient is the insured Medical (General) History Medical History History ICD Code Anxiety Back,Hip,and Knee pain covid-19 Depression Diabetic Headaches/Migraines Hepatitis Hiatal hernia Lung disease Psychiatric disorder Reflux ( GERD) sinusitis COPD Colitis Chicken pox Cholesterol Surgical History Surgery Date(Month/Year) cervical (spine?) surgery 2017 hernia [phone] peritonitis 2019
== END 2024-10-21 10:47 | disposition home or self-care (01) ==
LOC: HO.HGS 09:59
PROVIDERS: PCP Internal Medicine; Visit Provider Surgery
DX: K43.2 Incisional hernia without obstruction or gangrene (principal)
CPT/HCPCS: 99212

== ENCOUNTER → 2024-10-21 09:59 | Outpatient (BNVA) | payer OTHER, SELFPAY | PROVIDERS: PCP Internal Medicine; Visit Provider Surgery | DX: K43.2 Incisional hernia without obstruction or gangrene (principal) | CPT/HCPCS: 99212 ==

== ENCOUNTER 2024-10-25 14:58 | Outpatient (AMB) | payer OTHER, SELFPAY ==
--- NOTE | 2024-10-25 14:59 | MHC.PC.OV ---
Vital Signs 10/25/24 15:00 Height 5 ft 9 in Weight 195 lb BMI 28.8 BP 118/70 Blood Pressure Location Lt brachial Position Sitting Intake Visit Reasons: dm Intake Note: Patient here for a follow up DM Angiography Nurse Required: No Accompanied by: Self / Same As Patient Allergies Penicillins [PENICILLINS] Allergy (Unknown, Verified 10/25/24 15:15) ANAPHYLAXIS Medication List - Last Reconciled 10/25/24 by Shelli Bartlett MD albuterol sulfate 2.5 mg inhalation Q6H PRN atorvastatin 20 mg PO BEDTIME 90 days [bath mat As directed] bisacodyl 10 mg (2 x 5 mg) PO BEDTIME blood sugar diagnostic (Singspiel Ultra Test strips) Use 1 test strip three times a day blood-glucose meter (Singspiel Ultra2 Meter) As directed bupropion HCl XL 150 mg PO DAILY ictmohytwf-afyjqyqvoywhb-piqn 50-300-40 mg (Fioricet) 1 cap PO Q4-6H PRN clonazepam 1 mg PO 1 tab in pm and 1/2 tab Qam; clotrimazole-betamethasone 1-0.05 % 1 appl topical BID cyclobenzaprine 10 mg PO TID PRN cyclosporine 0.05% 1 drp ophthalmic (eye) BID dexlansoprazole 60 mg PO DAILY diclofenac sodium 3% 1 appl topical BID PRN 30 days dicyclomine 20 mg PO BID docusate sodium (Colace) 100 mg PO BID dulaglutide (Trulicity) 1.5 mg (0.5 mL) subcut QWEEK emollient combination no.32 (EpiCeram topical emulsion, extended release) topical escitalopram oxalate (Lexapro) 10 mg PO DAILY fluticasone propionate 50 mcg/actuation (Flonase Allergy Relief) 2 sprays intranasal DAILY 30 days hydrocortisone 2.5% (Proctosol HC) 1 appl NM BID Incruse Ellipta 62.5 mcg/actuation (umeclidinium) 1 inh PO DAILY NS ketoconazole 2% appl topical DAILY PRN lancets (Singspiel UltraSoft 2 Lancet) Use 1 lancet three times per day day lancets (LY.com Delica Safety Lancet) As directed 3 times per day mesalamine 2.4 grams (2 x 1.2 gram) PO DAILY montelukast 10 mg PO DAILY xd-ngl-jqzic-O4-dluzfar-lwapih 246-73-548-300 mcg (Centrum Silver Men) 1 tab PO DAILY oxybutynin chloride ER 10 mg PO DAILY 90 days oxycodone-acetaminophen 5-325 mg 1 tab PO Q6H PRN propranolol ER 80 mg PO BID rivaroxaban (Xarelto) 20 mg PO DAILY [shower head As directed] simethicone (Gas Relief Extra Strength) 125 mg PO BID-QID sucralfate 20 mL PO QNOON tadalafil (Cialis) 5 mg PO DAILY 90 days triamcinolone acetonide 0.1% 1 appl topical BID-TID Ventolin HFA 90 mcg/actuation (albuterol sulfate) 2 puffs PO QID PRN NS Tobacco use date assessed: 07/08/24 Dental Screening Dental Screen Date: 07/08/24 HPI HPI Comments History of Present Illness Details The patient is a 63-year-old male presenting for follow-up of various chronic health conditions, most notably diabetes mellitus, COPD, and migraine headaches. His diabetes control is evidenced by a recent A1c level of 5.8%, indicating satisfactory management. In terms of lipids, he's undergoing treatment with atorvastatin for hyperlipidemia. Depression and anxiety are ongoing concerns addressed through bupropion and clonazepam, respectively. Migraines previously managed with Fioricet presented challenges due to insurance constraints and adverse medication side effects. COPD is managed with a steroid-free inhaler; ulcerative colitis is addressed through ongoing mesalamine therapy. He has ulcerative colitis follow by Gastroenterology. The patient underwent a recent hernia repair with no complications reported. Urinary incontinence is controlled with oxybutynin, while propranolol treats hypertension and aids in migraine management. Past medical evaluations include a 2021 colonoscopy which necessitates a follow-up in November due to polyp findings. The patient historically smoked for four decades but ceased about 15 years ago. He necessitates updated laboratory evaluations for cholesterol and organ function due to gaps in recent testing. [facility] Medical History Incisional hernia (10/12/24) Hepatitis Seasonal allergies Cough Hx of influenza Congestion of nasal sinus Type 2 diabetes mellitus OAB (overactive bladder) Hyperlipidemia LDL goal <70 Abdominal wall hernia Personal history of nicotine dependence History of COVID-19 Obesity (BMI 30-39.9) Insomnia COPD (chronic obstructive pulmonary disease) Allergic rhinitis Ulcerative colitis Surgical History Hx of tonsillectomy History of incisional hernia repair History of cervical spinal surgery History of colonoscopy History of appendectomy (~2008) History of esophagogastroduodenoscopy (EGD) Family History Father Diabetes HTN (hypertension) Heart attack Mother Skin cancer HTN (hypertension) Diabetes Paternal Aunt Heart attack Sister Skin cancer Social History Household Members: Spouse Housing: Apartment Are you a primary manager critical care to a significant other at home: No Do you presently have visiting nurse or other home services: No Alcohol intake: never Patient Tobacco Use Status: Former Tobacco user Tobacco use type: Cigarette Years Smoked: (former smoker - onset 15yo, 1ppd x 36yrs, 35pyh, quit 2011) e-Cigarette/Vaping Use: Never Used Second Hand Smoke Exposure: No Substance Use Type: Marijuana service: No Current occupational status: retired Cognitive needs: No Hearing needs: No Vision needs: No Questionnaire Thrive Questionnaire Date Thrive assessed: 07/08/24 I am a: Patient What is your living situation today?: I have a steady place to live Within the past 12 months, did the food you bought not last and you didn't have the money to get more?: Often true Within the past 12 months, did you worry whether your food would run out before you got money to buy more?: Often true Do you have trouble paying for medicines?: No Do you have trouble getting transportation to medical appointments?: No Do you have trouble paying your heating and electricity bill?: Yes Do you have trouble taking care of your child, family member or friend?: I choose not to answer this question Do you have trouble with day-to-day activities such as bathing, preparing meals, shopping, managing finances, etc.?: Yes Are you currently unemployed and looking for a job?: I choose not to answer this question Are you interested in more education?: Yes Please select the resources that you would like help with: Food Currently or been in a relationship where the following occur: No concerns reported THRIVE Score: 3 KRZYSZTOF-7 AMB Questionnaire KRZYSZTOF-7 Date KRZYSZTOF - 7 assessed: 07/08/24 Source: Developed by Drs. Johnnie Butcher, Zaria Sahu, Mp Sapp and colleagues, with an educational job from [employer]. Review of Systems Const All systems reviewed & are unremarkable except as noted in HPI and below Card Denies chest pain at rest, Denies chest pain with activity, Denies edema, Denies irregular heart rhythm, Denies claudication, Denies dyspnea, Denies dyspnea on exertion, Denies orthopnea, Denies paroxysmal nocturnal dyspnea and Denies slow heart rate Resp Denies cough, Denies dyspnea and Denies dyspnea on exertion GI Denies abdominal pain, Denies change in bowel habits, Denies excessive flatus, Denies nausea and Denies vomiting Physical exam (Primary Care) Vital Signs: Last Vital Signs BP 118/70 10/25/24 15:00 BMI result Body Mass Index 28.8 Tobacco/Smoking Status: Tobacco use Status Tobacco use date assessed 07/08/24 10/25/24 15:10 Patient Tobacco Use Status Former Tobacco user 10/25/24 15:10 Tobacco use type Cigarette 10/25/24 15:10 e-Cigarette/Vaping Use Never Used 10/25/24 15:10 Thrive Assessment: Date of Thrive Assessment Date Thrive assessed 07/08/24 10/25/24 15:10 Currently or been in a relationship where the following occur: No concerns reported Resp Effort & Inspection: normal respiratory effort Auscultation: clear to auscultation bilaterally Cardio Jugular venous distension: no JVD Rate: regular rate Rhythm: regular rhythm Heart sounds: S1 normal heart sound present and S2 normal heart sound present GI Inspection: Yes normal to inspection Palpation (GI): Soft to palpation and nontender Auscultation: normal bowel sounds Extrem General: Yes full ROM Immunizations Boostrix Tdap 2.5 Lf unit-8 mcg-5 Lf/0.5 mL intramuscular syringe Performing Provider: Shelli Bartlett MD Per[facility] Administered by: GEORGETTE Palma on 10/25/24 15:31 Dose Route Admin Location Dispensed Lot Number Expiration Date [facility] Supply Crib Attendant 0.5 mL IM Left Deltoid 0.5 mL [id number] 01/07/27 09324-255-49 [employer] VIS Given Date VIS Provided VIS Publication Date 10/25/24 Single Vaccine 24 Eligibility Eligibility Date Funding Source Not VF Eligible 10/25/24 Private Coding Level of Care Code Est Pt Level 4 (53868) Complex EM visit Add On G2211 Diagnoses Panlobular emphysema J43.1 COPD type: emphysema Emphysema type: panlobular Ulcerative colitis K51.90 Controlled type 2 diabetes mellitus with complication, without long-term current use of insulin E11.8 Diabetes mellitus complication status: with unspecified complications Diabetes mellitus mcc insulin use: without intermediate manager use Mild major depression F32.0 Dyslipidemia E78.5 Time Spent (min) 22 Assessment & Plan Assessment & Plan (1) COPD (chronic obstructive pulmonary disease): Comment: Moderate degree of chronic obstructive pulmonary disease, ., SEC TO PAST h/o SMOKING STABLE AT THIS TIME. HE CLAIMS THAT HIS BREATHING IS MUCH BETTER ESPECIALLY SINCE HE HAS LOST SOME WEIGHT. Code(s): J44.9 - Chronic obstructive pulmonary disease, unspecified Category: Medical Qualifiers: COPD type: emphysema Emphysema type: panlobular Qualified Code(s): J43.1 - Panlobular emphysema (2) Ulcerative colitis: Code(s): K51.90 - Ulcerative colitis, unspecified, without complications Category: Medical (3) Controlled type 2 diabetes mellitus: Code(s): E11.9 - Type 2 diabetes mellitus without complications Category: Medical Qualifiers: Diabetes mellitus complication status: with unspecified complications Diabetes mellitus intermediate manager insulin use: without intermediate manager use Qualified Code(s): E11.8 - Type 2 diabetes mellitus with unspecified complications (4) Mild major depression: Code(s): F32.0 - Major depressive disorder, single episode, mild Category: Medical (5) Dyslipidemia: Code(s): E78.5 - Hyperlipidemia, unspecified Category: Medical Plan The patient will continue managing diabetes with confirmed A1c evaluations, maintain atorvastatin for lipid control, and remain on current prescriptions for depression and anxiety. Propranolol use will continue both for blood pressure maintenance and migraine prophylaxis. Challenges with prior migraine medication and COPD inhaler use were discussed, emphasizing need for non-steroidal options. Upcoming colonoscopy will assess prior polyp findings, and comprehensive lab work focuses on lipid, liver, and kidney evaluations. Continued smoking abstinence is crucial, and regular follow-up appointments are planned. Patient was informed and verbally consented to the use of an ambient scribe for clinic note documentation during this visit. During the consultation, I reviewed with the patient their multiple chronic conditions and management strategies. We discussed the use of bupropion and clonazepam for psychological health and atorvastatin for hyperlipidemia. Concerning migraine management, we revisited past difficulties with Fioricet and addressed propranolol use. The importance of regular diabetes screenings and upcoming blood tests was emphasized. I outlined the continuation of current inhaler treatments for COPD and oxybutynin for urinary symptoms, reinforcing the importance of regular follow-ups. I assured the patient that the colonoscopy would reassess GI health and polyp implications. The commitment to ongoing smoking cessation was praised, and recommendations for any lifestyle modifications were made with a plan for close monitoring. Orders: Orders Comprehensive [place]. Panel Fast 4 Months J43.1 - Panlobular emphysema Lipid Panel 4 Months E78.5 - Hyperlipidemia, unspecified Microalbumin, Random (w Creat) 4 Months R80.9 - Proteinuria, unspecified TDaP Immunization Today Z23 - Encounter for immunization Patient Instructions: - Continue your current medication regimen as prescribed. - Schedule and attend your routine laboratory tests, including cholesterol, liver, and kidney evaluation. - Maintain your current diabetes management plan and schedule regular A1c checks. - Attend your follow-up colonoscopy in November. - Continue to use your COPD inhaler as directed. - Report any worsening of migraines or anxiety symptoms promptly. - Continue avoiding smoking and keep up with your healthy lifestyle choices.
[2024-10-25 15:00] VITALS: BP 118/70; BMI 28.8
--- OUTSIDE RECORDS SUMMARY | 2024-10-25 17:45 | XMS_ITS ---
Author Organization [facility] Address [address] [place] [address] Care Team Providers Care Machine Long Goods Helper Name Role Phone Shelli Moore MD Primary Care Provider Unavail able Juany Munson Unavailable [phone] Allergies Allergen (clinical drug ingredient) Drug/Non Drug [...] Active Proctosol HC 2.5 % 1 application Health Unit Supervisor ally Twice a day Active oxyBUTYnin Active [...] 024 Encounters Encounter Location Date Provider Diagnosis [facility] [address] [address] 06/15/2024 Juany Munson Tinea pedis of both [...] Luna Linh luna, 11/19/2024 01:00:00 PM, [address] [place], [address], Procedure Notes * Category Sub-Category Detail Notes Wart Treatment Procedure Verrucae were de brided to pin-point bleeding margins with sterile 15 surgical blade, silver nitrate chemocautery applied, recomm. immune-boosting meds such as zinc, recomm. follow up with topical chemosurgical agents, Pt defers any other forms of tx (24701) Debride Nail 6-10 Nail debridement Due to [...] use of a nail nipper and/or dremel-type milk powder grinder, to a more viable healthy nail [...] to maintain effectiveness in symptomatic relief - 25114 Keratoma Treatment Parring or Cutting o f [...] instrumentation by the physician of record - 66497 Progress Notes * Viridiana MUNOZOB: (63 yo M)Acc No.[id number]:06/15/2024 Progress Note Patient:Kali RAMIREZ Provider:?Juany Munson DPM :1960???Age:63 Y???Sex:Male Constantin e:06/15/2024 Address: [address] , [place], [place] Pcp:Shelli Moore MD Subjective: * Chief Complaints: [...] use of a nail nipper and/or dremel-type milk powder grinder, to a more viable healthy nail [...] to maintain effectiveness in symptomatic relief - 23513.?Keratoma Treatment:?Parring or Cutting of Benign Hyperkeratotic Lesion(s)?(-57) [...] instrumentation by the physician of record - 86925.?Wart Treatment:?Procedure?Verrucae were debrided to pin-point bleeding margins with sterile 15 surgical blade, silver nitrate chemocautery applied, recomm. immune-boosting meds such as zinc, recomm. follow up with topical chemosurgical agents, Pt defers any other forms of tx (48101).? * Procedure Codes:?93624 DEBRI DE NAIL, 6 OR MORE, Modifiers: XS 67999 Wart Destruction, 1-14, Modifiers: XS 65448 TRIM SKIN LESIONS, OVER 4, Modifiers: XS [...] Munson DPM Date:? Generated for Tiesha rodriguez/Pan/Kirk on:?10/25/2024 05:45 PM EDT History and Physical Notes * HPI [...]
--- OUTSIDE RECORDS SUMMARY | 2024-10-25 17:45 | XMS_ITS | Data Portability ---
Author Organization [facility] Edfa3ly [facility] [place] in - [facility] Address [address] [place] [address] Care Team Providers Care Rubber Press Operator Name Role Phone HIM RICKEY OTHER Assessment [...] rapid strep group A, throat [facility]24 [facility] [address] [place] [address], [phone] 21:55:34 Referral None recorded. Procedures None recorded. Surgeries None recorded. Imaging None recorded. Medication Orders oseltamivir 75 mg capsule 2024 025 [facility][id number], [address], [place], [phone], 21:08:58 Tamiflu 75 mg capsule 2024 025 [employer] [employer] #[id number], [address], [place], [phone], 21:09:03 Patient TargetsNo targets recorded. Patient InstructionsNo instructions recorded. Reason for Referral None Reported. Results Created Date Observation Date Name Description Value Unit Range Abnormal Flag Note LastModifiedBy Organization Detail LastModifiedTime 09/16/1909/15/2024 rapid strep group A, throa t Strep negati ve Not Available Main - [facility] ed [address], [place], [address] 09/15/2024 21:14:27 Result Notes None recorded. Medical Equipment None Reported. Allergies Allergen ID Allergen Name Allergen Category Reaction Reaction Severity Criticality Documentation Date Start Date Code Code System Note Provider Name and Address Organization Details Recorded Time 88696 Product containin g penicilli n (product) medicatio n Not available Not available Not available 09/15/2024 52447 8001 SNOMED Not Available [facility] - production [...] SNOMED-CT Code Diagnosis ICD10 Code Diagnosis Note [id number] Rhett Menendez MD Main - [facility] [address] [place] [phone] 09/15/2024 21:01:19 09/20/2024 22:21:01 Influenza caused by Influenza A virus [id number] J09.X2 Health Concerns Section Related Observation LastModified by Organization Detai ls LastModified Time None Recorded Concern Status LastModified by Organization Details LastModified Time None Recorded Advance Directives Directive None Recorded Payers Encounter Date Sequence Insurance Name Policy Number Policy Smith Covered Member ID Smith Member ID Guarantor Name 09/15/2024 1 [facility] [employer] - DOS ON OR AFTER 2022 - DUAL ELIGIBLE - [employer] AND ONE CARE (MEDICARE REPLACEMENT/ADV ANTAGE - HMO) Kali Nicholas [id number] Kali Nicholas Notes Date Note Type Note [...] : Comments: PMH- colitis Referral taken via Motor Vehicle Representative. Patient calling in to place a referral, [...] He also reports being unable to sleep. Maintenance Service Dispatcher Organization Information for Roberta Wilson Business Legal Name: [employer]? Address: [address] [place] [address], Mobile Ui Designer: Max Carlos MD JERICA No.: [id number] Maintenance Service Dispatcher POC Test Results from Roberta Wilson Rapid strep test (20:56:47) Strep: - .................... .................... .................... .................... .................... .................... .................... . Maintenance Service Dispatcher Note From Roebrta Wilson: Sent to a call for a [...] pink, warm, dry; Rapid strep test: neg; [facility] consulted and orders Tamiflu 75mg PO. [facility] sends script to pt's pharmacy for Tamiflu to start tomorrow. Tamiflu 75mg PO administered without incident. Red flags discussed. Pt has no further questions. [facility] Lab Orders: rapid strep group A, throat: Performed .................... .................... .................... .................... .................... .................... .................... . [facility] Consulted: Rhett Menendez .................... .................... .................... .................... .................... .................... .................... . Disposition: Fulfilled Rhett Menendez MD [address], [place], [address], [place] - STEPHANIE BERG 09/20/2024 21:55:36
--- OUTSIDE RECORDS SUMMARY | 2024-10-25 17:45 | XMS_ITS ---
Author Organization [facility] Address [address] [place] [address] Care Team Providers Care Instrument Technician Helper Name Role Phone Shelli Moore MD Primary Care Provider Unavail able Juany Munson Unavailable [phone] Allergies Allergen (clinical drug ingredient) Drug/Non Drug [...] Active Proctosol HC 2.5 % 1 application Redevelopment Specialist ally Twice a day Active Escitalopram Oxalate [...] Problem Acquired hammer toe of right foot (8362624795378 105) Other hammer toe(s) (acquired), right foot (M20.41) Active confirmed Problem Acquired hammer toe of left foot (5650748457684 103) Other hammer toe(s) (acquired), left foot (M20.42) Active confirmed Vital Signs Height 5ft9in in 09/01/2024 Weight 202 lbs 09/01/2024 BMI 29.83 kg/m2 09/01/2024 Blood pressure systolic 118 mm Hg 09/02/19 25 Blood pressure diastolic 70 mm Hg 025 Encounters Encounter Location Date Provider Diagnosis [facility] [address] [address] 09/01/2024 Juany Munson Tinea pedis of both [...] Reason: Provider Name:Juany luna, 11/19/2024 01:00:00 PM, [address] [place] [address], [phone], Procedure Notes * Category Sub-Category Detail Notes Wart Treatment Procedure Verrucae were de brided to pin-point bleeding margins with sterile 15 surgical blade, silver nitrate chemocautery applied, recomm. immune-boosting meds such as zinc, recomm. follow up with topical chemosurgical agents, Pt defers any other forms of tx (03962) Debride Nail 6-10 Nail debridement Due to [...] use of a nail nipper and/or dremel-type razor grinder, to a more viable healthy nail [...] to maintain effectiveness in symptomatic relief - 00582 Keratoma Treatment Parring or Cutting o f [...] instrumentation by the physician of record - 83293 Progress Notes * Viridiana MUNOZOB: 1 (63 yo M)Acc No.[id number]:09/01/2024 Progress Note Patient:?Kali MUNOZ Provider:?Juany Munson DPM :1960???Age:63 Y???Sex:Male Constantin e:09/01/2024 Address: [address] , [id number] Pcp:Shelli Moore MD Subjective: * Chief Complaints: [...] erruptionsyes[Allergies Verified] Objective: * Vitals:?Ht:5ft9in, Wt:202, B PR:29.83, Shoe size:12, BP:118/70mm Hg, BS:137, Ht- cm: [...] use of a nail nipper and/or dremel-type razor grinder, to a more viable healthy nail [...] to maintain effectiveness in symptomatic relief - 64841.?Keratoma Treatment:?Parring or Cutting of Benign Hyperkeratotic Lesion(s)?(-57) [...] instrumentation by the physician of record - 27523.?Wart Treatment:?Procedure?Verrucae were debrided to pin-point bleeding margins with sterile 15 surgical blade, silver nitrate chemocautery applied, recomm. immune-boosting meds such as zinc, recomm. follow up with topical chemosurgical agents, Pt defers any other forms of tx (66685).? * Procedure Codes:?89208 DEBRI DE NAIL, 6 OR MORE, Modifiers: XS 14215 Wart Destruction, 1-14, Modifiers: XS 38259 TRIM SKIN LESIONS, OVER 4, Modifiers: XS [...] Munson DPM Date:?10/2024 Generated for Tiesha rodriguez/Pan/Kirk on:?10/25/2024 05:45 PM [...]
--- OUTSIDE RECORDS SUMMARY | 2024-10-25 17:45 | XMS_ITS | Encounter Summary ---
Author Organization [facility] Address [address] [place] [address] Care Team Providers Care Tool Machine Setup Operator Name Role Phone Unavailable Primary Care Provider Unavailabl e Encounter Details Date Type Department Care Team (Late Contact Info) Description 10/08/2022 Abstract [facility] ADULT DENTAL [address] [place] [address] Raymundo, Erum [address] [place] [address] Social History Tobacco Use Types Packs/Day Years [...] Description 10/27/2024 3:00 PM EDT Office Visit [facility] OPTOM[facility]RY [address] [place] [address] Saniya Veliz, OD [address] [place] [address] 12/08/2024 3:00 PM EDT Office Visit [facility] [address] [place] [address] Erum Fonseca [address] [place] [address] documented as of this encounter Visit Diagnoses Not on filedocumented in this encounter
--- OUTSIDE RECORDS SUMMARY | 2024-10-25 17:46 | XMS_ITS ---
Author Organization [facility] Address [address] [place] [address] Care Team Providers Care Nicu Rn Name Role Phone Shelli Moore MD Primary Care Provider Unavail able Juany Munson Unavailable [phone] REASON FOR VISIT seen 04/01/2024 Encounters Encounter Location Date Provider Diagnosis [address] [address] 04/06/2024 Juany Munson Plan Of Treatment Next Appt Details Provider Name:Juany luna, 11/19/2024 01:00:00 PM, [address] [place] [address], [phone], Progress Notes * Huber MUNOZoDOB: (63 yo M)Acc No.[id number]:04/06/2024 Progress Note Patient:?Kali MUNOZ Provider:?Juany Munson DPM :1960???Age:63 Y???Sex:Male Constantin e:04/06/2024 Address[address] [place] Pcp:Shelli Moore MD Subjective: * Chief Complaints: * ???1. Seen 04/01/2024. * Medical History:? Objective: * Vitals:? Assessment: Plan: * Treatment: * Images: * The named appointment provid er may or may not be the originator of this progress note, and it is not deemed complete until electronically signed by the appointment provider. Sign off status: Pending * Provider:Tono Munson DPM Date:?01/2024 Generated for Tiesha rodriguez/Pan/Kirk on:?10/25/2024 05:45 PM EDT
--- OUTSIDE RECORDS SUMMARY | 2024-10-25 17:46 | XMS_ITS | Clinical Summary ---
Author Organization [employer] Address [address] [place] [address] Care Team Providers Care Steel Rod Buster Name Role Phone Unavailable Primary Care Provider [...] daily. 3 Active Lancets (OneTouch Delica Plus [id number]) misc USE ONCE DAILY 3 Active OneTouch [...] Open fracture of tooth 02/13/2024 Fractured dental jewish with loss of materi al 02/02/2024 Diabetes [...] Type Department Care Team Description 07/27/2024 Telephone [facility] [address] [place] [address] Sachin Dawkins MD from Last 3 [...] Description 10/27/2024 3:00 PM EDT Office Visit [facility] OPTOMETRY [address] [place] [address] Jose Alfredo, Saniya, OD [address] [place] [address] 12/08/2024 3:00 PM EDT Office Visit [facility] ADULT DENTAL [address] [place] [address] Raymundo, Erum [address] [place] [address] Health Maintenance Due Date Last Done Comments [...] Most Recently Relevant to Health Maintenance Insurance [facility] < 65 PJ LOR[place]NA [id number]
--- OUTSIDE RECORDS SUMMARY | 2024-10-25 17:46 | XMS_ITS | Patient Health Record ---
Author Organization [facility] Address [address] [facility] [place] [address] Care Team Providers Care Power Line Installer Name Role Phone Teresa ELLIS, Shelli Primary Care Provider Unavail able Juany Munson Unavailable [phone] Allergies Allergen (clinical drug ingredient) Drug/Non Drug Allergy documented on EMR Reaction Allergy Type Onset Date Status Substance with penicillin structure and antibacterial mechanism of action (substance) Penicillins skin erruptions Drug Allergy Active Results Component Value Reference Range Notes HEMOGLOBIN A1C (GLYCOHEMOGLO BIN) Reviewed date:06/15/2024 10:12:18 AM Interpretation: Performing Lab: Notes/Report: TOTAL HEMOGLOBIN (HGBA1C) 6.6 HEMOGLOBIN A1C (GLYCOHEMOGLO BIN) Reviewed date:09/01/2024 11:37:41 AM Interpretation: Performing Lab: Notes/Report: HEMOGLOBIN A1C % (HH) 6.6 HEMOGLOBIN A1C (GLYCOHEMOGLO BIN) Reviewed date:01/28/2024 11:02:51 AM Interpretation: Performing Lab: Notes/Report: TOTAL HEMOGLOBIN (HGBA1C) 6.7 Reason For Referral No Information Medications Medication [...] Active Proctosol HC 2.5 % 1 application Copy Holder ally Twice a day Active Escitalopram Oxalate [...] Problem Acquired hammer toe of right foot (242318527780 9105) Other hammer toe(s) (acquired), right foot (M20.41) Active confirmed Problem Acquired hammer toe of left foot (418557841874 9103) Other hammer toe(s) (acquired), left foot (M20.42) Active confirmed Problem 61757725 Plantar wart (B07.0) Active confirmed Problem 94929028 Type 2 diabetes mellitus with polyneuropathy (E11.42) Active confirmed Vital Signs Blood pressure diastolic 70 mm Hg 09/01/2024 Height 5ft9in in 09/01/2024 Blood pressure systolic 118 mm Hg 09/01/2024 Weight 202 lbs 09/01/2024 BMI 29.83 kg/m2 09/01/2024 Encounters Encounter Location Date Provider Diagnosis [address] [address] 11/04/2023 Juany Perica Tinea pedis of both feet B35.3 ; Tinea unguium B35.1 ; Type 2 diabetes mellitus with polyneuropathy E11.42 ; Plantar wart B07.0 and Pain in left foot M79.[address] [address] 01/28/2024 Juany Perica Tinea pedis of both feet B35.3 ; Tinea unguium B35.1 ; Type 2 diabetes mellitus with polyneuropathy E11.42 ; Plantar wart B07.0 and Pain in left foot M79.[address] [address] 04/01/2024 Juany Perica Tinea pedis of both feet B35.3 ; Tinea unguium B35.1 ; Type 2 diabetes mellitus with polyneuropathy E11.42 ; Plantar wart B07.0 and Pain in left foot M79.[address] [address] 06/15/2024 Juany Perica Tinea pedis of both feet B35.3 ; Tinea unguium B35.1 ; Type 2 diabetes mellitus with polyneuropathy E11.42 ; Plantar wart B07.0 and Pain in left foot M79.[address] [facility] [address] [address] 09/01/2024 Juany Munson Tinea pedis of both feet B35.3 ; Other hammer toe(s) (acquired), right foot M20.41 ; Tinea unguium B35.1 ; Type 2 diabetes mellitus with polyneuropathy E11.42 ; Plantar wart B07.0 ; Pain in left foot M79.672 and Other hammer toe(s) (acquired), left foot M20.42 [facility] [address] [address] 01/14/2024 Juany Munson Assessments Encounter Date Diagnosis [...] mellitus with polyneuropathy (ICD-10 - E11.42) 04/01/2024 Tinea unguium (ICD-10 - B35.1) 01/28/2024 Tinea unguium (ICD-10 - B35.1) 11/04/2023 Tinea unguium (ICD-10 - B35.1) 11/04/2023 Type 2 diabetes mellitus with polyneuropathy (ICD-10 - E11.42) 01/28/2024 Type 2 diabetes mellitus with polyneuropathy (ICD-10 - E11.42) 06/15/2024 Plantar wart (ICD-10 - B07.0) 04/01/2024 Type 2 diabetes mellitus with polyneuropathy (ICD-10 - E11.42) 09/01/2024 Type 2 diabetes mellitus with polyneuropathy (ICD-10 - E11.42) 09/01/2024 Plantar wart (ICD-10 - B07.0) 06/15/2024 Pain [...] Provider Name:Juany luna, 11/19/2024 01:00:00 PM, [address] [place] [address], [address], Insurance Providers Payer Name Payer Address Payer Phone Subscriber Number Group Number Insured Name Patient Relationship to Insured Coverage Start Date Coverage End Date [facility] [employer] Claims [address] [place], [place] [address]PJ [id number] Kail Munoz Self - patient is the insured Medical (General) History Medical History History ICD Code Anxiety Back,Hip,and Knee pain covid-19 Depression Diabetic Headaches/Migraines Hepatitis Hiatal hernia Lung disease Psychiatric disorder Reflux ( GERD) sinusitis COPD Colitis Chicken pox Cholesterol Surgical History Surgery Date(Month/Year) cervical (spine?) surgery 2017 hernia 5830-4350 peritonitis 2019
== END 2024-10-25 15:38 | disposition home or self-care (01) ==
LOC: HO.HMCH 14:58
PROVIDERS: PCP Internal Medicine; Visit Provider Internal Medicine
DX: J43.1 Panlobular emphysema (principal); K51.90 Ulcerative colitis, unspecified, without complications; E11.8 Type 2 diabetes mellitus with unspecified complications; F32.0 Major depressive disorder, single episode, mild; E78.5 Hyperlipidemia, unspecified; Z23 Encounter for immunization

== ENCOUNTER → 2024-10-25 14:58 | Outpatient (BNVA) | payer OTHER, SELFPAY | PROVIDERS: PCP Internal Medicine; Visit Provider Internal Medicine | DX: J43.1 Panlobular emphysema (principal); Z23 Encounter for immunization; K51.90 Ulcerative colitis, unspecified, without complications; E11.8 Type 2 diabetes mellitus with unspecified complications; F32.0 Major depressive disorder, single episode, mild; E78.5 Hyperlipidemia, unspecified; Z79.899 Other long term (current) drug therapy | CPT/HCPCS: 90471; 90715; 99212 ==

== ENCOUNTER 2024-11-19 12:41 | Outpatient (AMB) | payer OTHER, SELFPAY ==
--- OUTSIDE RECORDS SUMMARY | 2024-11-19 12:44 | XMS_ITS | Data Portability ---
Author Organization [facility] [employer] [facility] [facility] Address [address] [place] [address] Care Team Providers Care Nut Roaster Name Role Phone HIM RICKEY OTHER Assessment [...] rapid strep group A, throat 2024 025 [facility], [address] [place] [address], [phone] 21:55:34 Referral None recorded. Procedures None recorded. Surgeries None recorded. Imaging None recorded. Medication Orders oseltamivir 75 mg capsule 2024 025 [employer] #[id number], [address] [place], [place], [phone], 21:08:58 Tamiflu 75 mg capsule 2024 025 [employer] #[id number], [address] [place], [place], [id number], 21:09:03 Patient TargetsNo targets recorded. Patient InstructionsNo instructions recorded. Reason for Referral None Reported. Results Created Date Observation Date Name Description Value Unit Range Abnormal Flag Note LastModifiedBy Organization Detail LastModifiedTime 09/16/1909/15/2024 rapid strep group A, throa t Strep negati ve Not Available Main - [facility] ed [address] [facility], [place], [address] 09/15/2024 21:14:27 Result Notes None recorded. Medical Equipment None Reported. Allergies Allergen ID Allergen Name Allergen Category Reaction Reaction Severity Criticality Documentation Date Start Date Code Code System Note Provider Name and Address Organization Details Recorded Time 25250 Product containin g penicilli n (product) medicatio n Not available Not available Not available 09/15/2024 36910 8001 SNOMED Not Available [facility] - production [...] SNOMED-CT Code Diagnosis ICD10 Code Diagnosis Note [id number] Rhett Menendez MD Main - [facility] [address] [place] [phone] 09/15/2024 21:01:19 09/20/2024 22:21:01 Influenza caused by Influenza A virus [id number] J09.X2 Health Concerns Section Related Observation LastModified by Organization Detai ls LastModified Time None Recorded Concern Status LastModified by Organization Details LastModified Time None Recorded Advance Directives Directive None Recorded Payers Insurance Date Sequence Insurance Name Policy Number Policy Smith Covered Member ID Smith Member ID Guarantor Name 09/15/2024 1 [employer] - DOS ON OR AFTER 2022 - DUAL ELIGIBLE - GROUP HOME OPTIONS AND ONE CARE (MEDICARE REPLACEMENT/ADV ANTAGE - HMO) Kali Nicholas [id number] Kali Nicholas Notes Date Note Type Note [...] : Comments: PMH- colitis Referral taken via [employer]. Patient calling in to place a referral, [...] He also reports being unable to sleep. Knot Tying Operator Organization Information for [facility] [employer] Legal Name: [employer]? Address: [address] [place] [address], Carpenters Supervisor: Max Carlos MD JERICA No.: [id number] Knot Tying Operator POC Test Results from [facility] Rapid strep test (20:56:47) Strep: - .................... .................... .................... .................... .................... .................... .................... . Knot Tying Operator Note From Roberta Wilson: Sent to a [...] pink, warm, dry; Rapid strep test: neg; [facility] consulted and orders Tamiflu 75mg PO. [facility] sends script to pt's pharmacy for Tamiflu to start tomorrow. Tamiflu 75mg PO administered without incident. Red flags discussed. Pt has no further questions. [facility] Lab Orders: rapid strep group A, throat: Performed .................... .................... .................... .................... .................... .................... .................... . [facility] Consulted: Rhett Menendez .................... .................... .................... .................... .................... .................... .................... . Disposition: Fulfilled Rhett Menendez MD [address] [facility], [place], [address], [facility] - STEPHANIE BERG 09/20/2024 21:55:36
[2024-11-19 12:46] VITALS: BP 90/60; PULSE 67; O2SAT 96; BMI 30.2
--- NOTE | 2024-11-19 12:46 | A.OFFVIS_ITS ---
Vital Signs 11/19/24 12:46 Height 5 ft 9 in Weight 204 lb 5.896 oz BMI 30.2 BP 90/60 Blood Pressure Location Lt brachial Position Sitting Pulse 67 Pulse Source Pulse Oximeter Pulse Oximetry (%) 96 Oxygen Delivery Method Room Air Intake Visit Reasons: T2DM Intake Note: Patient present today for Type 2 Diabetes Mellitus Last Diabetic eye exam: 10/2024 Last Podiatry Visit: 08/2024 Random Glucose: 117 mg/dl HgA1C: 5.8% 09/29/24 [employer] Required: Yes [employer] Language: Technical Support Engineer Services: Reaming [employer] Present [employer] Name: Irena [id number] Information Interpreted: non-clinical & clinical Accompanied by: Self / Same As Patient Allergies Penicillins [PENICILLINS] Allergy (Unknown, Verified 11/19/24 12:52) ANAPHYLAXIS Medication List - Last Reconciled 11/19/24 by Asya Loo PA-C [adjustable bed rail As directed] albuterol sulfate 2.5 mg inhalation Q6H PRN atorvastatin 20 mg PO BEDTIME 90 days [bath mat As directed] bisacodyl 10 mg (2 x 5 mg) PO BEDTIME blood sugar diagnostic (OneTouch Ultra Test strips) Use 1 test strip three times a day blood-glucose meter (OneTouch Ultra2 Meter) As directed bupropion HCl XL 150 mg PO DAILY gypotkipyb-wzmmjijvnehjz-uoxl 50-300-40 mg (Fioricet) 1 cap PO Q4-6H PRN clonazepam 1 mg PO 1 tab in pm and 1/2 tab Qam; clotrimazole-betamethasone 1-0.05 % 1 appl topical BID cyclobenzaprine 10 mg PO TID PRN cyclosporine 0.05% 1 drp ophthalmic (eye) BID dexlansoprazole 60 mg PO DAILY diclofenac sodium 3% 1 appl topical BID PRN 30 days dicyclomine 20 mg PO BID docusate sodium (Colace) 100 mg PO BID dulaglutide (Trulicity) 1.5 mg (0.5 mL) subcut QWEEK emollient combination no.32 (EpiCeram topical emulsion, extended release) topical escitalopram oxalate (Lexapro) 10 mg PO DAILY fluticasone propionate 50 mcg/actuation 2 sprays intranasal DAILY hydrocortisone 2.5% (Proctosol HC) 1 appl IA BID Incruse Ellipta 62.5 mcg/actuation (umeclidinium) 1 inh PO DAILY NS ketoconazole 2% appl topical DAILY PRN lancets (OneTouch UltraSoft 2 Lancet) Use 1 lancet three times per day day lancets (Onetouch Delica Safety Lancet) As directed 3 times per day mesalamine 2.4 grams (2 x 1.2 gram) PO DAILY montelukast 10 mg PO DAILY [id number]-[id number] 530-23-505-300 mcg (Centrum Silver Men) 1 tab PO DAILY oxybutynin chloride ER 10 mg PO DAILY 90 days oxycodone-acetaminophen 5-325 mg 1 tab PO Q6H PRN propranolol ER 80 mg PO BID rivaroxaban (Xarelto) 20 mg PO DAILY [shower head As directed] simethicone (Gas Relief Extra Strength) 125 mg PO BID-QID sucralfate 20 mL PO QNOON tadalafil (Cialis) 5 mg PO DAILY 90 days triamcinolone acetonide 0.1% 1 appl topical BID-TID Ventolin HFA 90 mcg/actuation (albuterol sulfate) 2 puffs PO QID PRN NS HPI HPI T2DM: Details: Patient is a 64-year-old male with a significant past medical history of type 2 diabetes, hyperlipidemia, fatty liver, erectile dysfunction, anxiety and depre ssion presenting today for consultation regarding his diabetes. [employer]: Donya [id number] Endo: He was diagnosed with diabetes in 2022. His last A1c was 5.8. He is currently treated with trulicity 1.5 mg weekly. -His blood sugars have been great around 110-130 fasting. He wants new testing kit as he thinks his is off a bit. His has a freestyle and he thinks hers is more accurate. -Jardiance caused urinary sx, torated metformin most of the time but at times had GI upset. Likes being off of this. 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 He has started exercising as well which is helping control his bs. Follows with Podiatry. Denies any peripheral neuropathy. Follows with ophthalmology and denies any retinopathy. He denies any hypo or hyperglycemic events. He is not on an COLT-inhibitor/Arb. He is on atorvastatin 20 mg. Cholesterol listed below, LDL 60. LFTs wnl. No myalgias. CV: Blood pressure today in the office is 90/60. He denies any chest pain, shortness of breath or palpitations. He is on propranolol 80 mg twice a day for tremors. Does not feel dizzy. Cholesterol is managed with atorvastatin 20 mg daily. [facility] Medical History Incisional hernia (10/12/24) Hepatitis Seasonal allergies Cough Hx of influenza Congestion of nasal sinus Type 2 diabetes mellitus OAB (overactive bladder) Hyperlipidemia LDL goal <70 Abdominal wall hernia Personal history of nicotine dependence History of COVID-19 Obesity (BMI 30-39.9) Insomnia COPD (chronic obstructive pulmonary disease) Allergic rhinitis Ulcerative colitis Surgical History Hx of tonsillectomy History of incisional hernia repair History of cervical spinal surgery History of colonoscopy History of appendectomy (~2008) History of esophagogastroduodenoscopy (EGD) Family History Father Diabetes HTN (hypertension) Heart attack Mother Skin cancer HTN (hypertension) Diabetes Paternal Aunt Heart attack Sister Skin cancer Social History Household Members: Spouse Housing: Apartment Are you a primary managed care specialist to a significant other at home: No Do you presently have visiting nurse or other home services: No Alcohol intake: never Patient Tobacco Use Status: Former Tobacco user Tobacco use type: Cigarette Years Smoked: (former smoker - onset 15yo, 1ppd x 36yrs, 35pyh, quit 2011) e-Cigarette/Vaping Use: Never Used Second Hand Smoke Exposure: No Substance Use Type: Marijuana service: No Current occupational status: retired Cognitive needs: No Hearing needs: No Vision needs: No Physical Exam Vital Signs: Last Vital Signs Pulse 67 11/19/24 12:46 BP 90/60 11/19/24 12:46 Pulse Ox 96 11/19/24 12:46 Oxygen Delivery Method Room Air 11/19/24 12:46 BMI result Body Mass Index 30.2 Const Orientation/consciousness: patient oriented x3 HEENT Ears: hearing grossly normal bilaterally Neck Thyroid: Thyroid normal Lymphatic: no lymphadenopathy noted Resp Auscultation: clear to auscultation bilaterally Cardio Rate: regular rate Rhythm: regular rhythm Heart sounds: S1 normal heart sound present and S2 normal heart sound present Skin General skin exam: no rashes or lesions noted Neuro General: patient oriented x3, gait normal and no focal motor deficits Results Reviewed Results Reviewed: Laboratory Tests 03/25/24 09/29/24 10/12/24 09:33 13:07 08:33 Creatinine 0.83 Estimated GFR > 60 POC Glucose 104 Hemoglobin A1c % 5.8 AST 23 ALT 35 Triglycerides 85 Cholesterol 111 LDL Cholesterol, Calc 60 HDL Cholesterol 34 L Assessment & Plan Assessment & Plan (1) Controlled type 2 diabetes mellitus: Code(s): E11.9 - Type 2 diabetes mellitus without complications Category: Medical Qualifiers: Diabetes mellitus long term acute care registered nurse insulin use: without fpc use Diabetes mellitus complication status: with unspecified complications Qualified Code(s): E11.8 - Type 2 diabetes mellitus with unspecified complications Plan: currently well controlled with current treatment plan continue trulicity 1.5 mg weekly dm labs prior to our next appointment f/u in 3 months or sooner prn (2) Dyslipidemia: Code(s): E78.5 - Hyperlipidemia, unspecified Category: Medical Plan: Controlled with atorvastatin 20 mg reviewed labs with pt today in office (3) Hypotension: Code(s): I95.9 - Hypotension, unspecified Plan: on propranolol per pt for tremors (finds effective) advised to monitor hydration and bps and we discussed signs and symptoms of low blood pressure. his recent bps in office have been wnl Medications: New blood-glucose meter (FreeStyle Lite Meter kit) Use daily As directed to check blood sugars 1 ea 0RF E11.22 - Type 2 diabetes mellitus with diabetic chronic kidney disease blood sugar diagnostic (FreeStyle Lite Strips) Use daily As directed to check blood glucose 100 ea 3RF E11.9 - Type 2 diabetes mellitus without complications lancets (FreeStyle Lancets) use daily as directed to check blood glucose 100 ea 3RF E11.8 - Type 2 diabetes mellitus with unspecified complications Discontinued blood-glucose meter (OneTouch Ultra2 Meter) Discontinued Reason: Doctor's Order As directed 1 ea 0RF E11.9 - Type 2 diabetes mellitus without complications lancets (OneTouch UltraSoft 2 Lancet) Discontinued Reason: Doctor's Order Use 1 lancet three times per day day 100 ea 1RF E11.9 - Type 2 diabetes mellitus without complications blood sugar diagnostic (OneTouch Ultra Test strips) Discontinued Reason: Doctor's Order Use 1 test strip three times a day 300 ea 1RF E11.9 - Type 2 diabetes mellitus without complications lancets (Onetouch Delica Safety Lancet) Discontinued Reason: Duplicate As directed 3 times per day 200 ea 0RF E11.9 - Type 2 diabetes mellitus without complications Coding Level of Care Code Est Pt Level 4 (91681) Complex EM visit Add On G2211 Diagnoses Controlled type 2 diabetes mellitus with complication, without long-term current use of insulin E11.8 Diabetes mellitus fpc insulin use: without long term acute care registered nurse use Diabetes mellitus complication status: with unspecified complications Dyslipidemia E78.5 Hypotension I95.9
[2024-11-19 13:00] LABS: Glucose, Whole Blood 117 mg/dL (60-115)
== END 2024-11-19 13:16 | disposition home or self-care (01) ==
LOC: HO.ENCR 12:41
PROVIDERS: PCP Internal Medicine; Visit Provider Physician Assistant
DX: E11.8 Type 2 diabetes mellitus with unspecified complications (principal); E78.5 Hyperlipidemia, unspecified; I95.9 Hypotension, unspecified

== ENCOUNTER → 2024-11-19 12:41 | Outpatient (BNVA) | payer OTHER, SELFPAY | PROVIDERS: PCP Internal Medicine; Visit Provider Physician Assistant | DX: E11.8 Type 2 diabetes mellitus with unspecified complications (principal); E78.5 Hyperlipidemia, unspecified; I95.9 Hypotension, unspecified; Z79.85 Long-term (current) use of injectable non-insulin antidiabetic drugs; Z79.899 Other long term (current) drug therapy | CPT/HCPCS: 82947; 99212 ==

== ENCOUNTER 2024-12-02 13:44 | Outpatient (REF) | payer OTHER, SELFPAY ==
[2024-12-02 17:02] LABS: Creatinine Urine 74.36 mg/dL; Microalbum/Creatinine Ratio Ur 9.4 ug/mg cr (<30)
[2024-12-02 17:07] LABS: Vitamin D 25-OH Total 45.7 ng/mL (>30)
[2024-12-02 17:59] LABS: Alanine Aminotransferase 41 U/L (0-40); Albumin Level 4.5 g/dL (3.5-5.0); Alkaline Phosphatase 76 U/L (39-117); Anion Gap 9 (12-20); Aspartate Amino Transferase 27 U/L (5-37); Bilirubin Direct 0.3 mg/dL (0.0-0.5); Bilirubin Total 0.8 mg/dL (0.0-1.0); Blood Urea Nitrogen 14 mg/dL (9-16); Calcium 9.7 mg/dL (8.4-10.2); Carbon Dioxide 29 mmol/L (22-29); Chloride 105 mmol/L (96-108); Cholesterol 115 mg/dL (<200); Estimated Glomerular Filt Rate > 60; Glucose Fasting 125 mg/dL (60-99); HDL Cholesterol 36 mg/dL (>40); LDL Cholesterol Calculated 56 mg/dL (<100); Sodium 139 mmol/L (135-145); Total Protein 6.8 g/dL (6.5-8.0); Triglycerides 119 mg/dL (<150)
== END 2024-12-02 13:45 | disposition home or self-care (01) ==
LOC: HO.LAB 13:44
PROVIDERS: PCP Internal Medicine; Visit Provider Nurse Practitioner
DX: Z01.818 Encounter for other preprocedural examination (principal); K75.81 Nonalcoholic steatohepatitis (NASH); K63.5 Polyp of colon; K59.04 Chronic idiopathic constipation; K21.9 Gastro-esophageal reflux disease without esophagitis; J43.1 Panlobular emphysema; K51.90 Ulcerative colitis, unspecified, without complications; E55.9 Vitamin D deficiency, unspecified; E11.8 Type 2 diabetes mellitus with unspecified complications; R80.9 Proteinuria, unspecified; E78.5 Hyperlipidemia, unspecified; K43.2 Incisional hernia without obstruction or gangrene
CPT/HCPCS: 36415; 80053; 80061; 80076; 82043; 82248; 82306; 82570; 99212

== ENCOUNTER 2024-12-02 13:44 | Outpatient (AMB) | payer OTHER, SELFPAY ==
--- NOTE | 2024-12-02 13:46 | A.OFFVIS_ITS ---
Vital Signs 3 12/02/24 14:02 Height 5 ft 9 in Weight 201 lb BMI 29.7 BP 86/66 L Blood Pressure Location Rt brachial Position Sitting Pulse 76 Pulse Source Pulse Oximeter Pulse Oximetry (%) 95 Oxygen Delivery Method Room Air Intake Visit Reasons: 6 mos FUV. Discuss colo Intake Note: Established patient for mgmt of GERD, IBS, + GUZMAN. Discuss colo CC; Pt denies any GI sx or concerns at this point regarding his conditions. However, pt does report having difficulties getting his refills frequently. Pt is hoping we can help mitigate this issue so he does not have to go without his medication for days or weeks at a time. Production Mechanic Required: Yes Production Mechanic Services: Production Mechanic Present Production Mechanic Name: Enrike [id number] Information Interpreted: clinical only Accompanied by: Self / Same As Patient Allergies Penicillins [PENICILLINS] Allergy (Unknown, Verified 12/02/24 13:46) ANAPHYLAXIS HPI HPI 6 mos FUV. Discuss colo: Details: Assessment & Plan (1) Chronic idiopathic constipation: Code(s): K59.04 - Chronic idiopathic constipation Category: Medical (2) GERD (gastroesophageal reflux disease): Code(s): K21.9 - Gastro-esophageal reflux disease without esophagitis Category: Medical Qualifiers: Esophagitis presence: without esophagitis Qualified Code(s): K21.9 - Gastro-esophageal reflux disease without esophagitis (3) GUZMAN (nonalcoholic steatohepatitis): Comment: BASELINE LABS: 10/2018 Hep B immune, not to Hep A or C, HIV negative, autoimmune work up neg, AFP 2.9, Ferritin 532, GGT 66. AST/ALT 62/151 Current Laboratory Tests 11/07/23 Unknown Total Bilirubin 0.8 AST 21 ALT 44 H Alkaline Phosphatase 93 ULTRASOUND OF THE ABDOMEN 08/14/22 IMPRESSION: There is generalized increase in hepatic echotexture, consistent with fatty infiltration or hepatocellular disease. Characteristic pericholecystic sparing favors fatty infiltration. Provided history of GUZMAN noted. No focal hepatic mass or intrahepatic biliary dilatation is seen. Code(s): K75.81 - Nonalcoholic steatohepatitis (GUZMAN) Category: Medical (4) Incisional hernia: Code(s): K43.2 - Incisional hernia without obstruction or gangrene Category: Medical Plan Arabic #Maggy Live He is doing well on his current regimen and is having no CIC. He continues on his Dexilant , dicyclomine, mesalamine, and simethicone. HE is having a recurrent problems with muscular pain in the low gluteals/hamstring tendons. At times this is worsened with needing to move his bowels. 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 He also is bothered that his large incisional hernia that is growing despite losing weight. It is possible that the lack of core muscle control is c/t back or hamstring problems. He is requesting a referral to again see Dr. Talbert regarding this - he saw him in 2019 and likely this was shelved r/t COVID. US ordered for GUZMAN monitoring. ROV 6 mos. Orders: Orders US abdomen complete Today K43.2 - Incisional hernia without obstruction or gangrene, K75.81 - Nonalcoholic steatohepatitis (GUZMAN) Referrals General Surgery Referral K43.2 - Incisional hernia without obstruction or gangrene US ABDOMEN - not obtained but CT ABDOMEN AND PELVIS 04/2024 FINDINGS: LUNG BASES: Minimal platelike atelectasis right lung base. Heart size is normal. No hiatal hernia seen. No pericardial effusion. LIVER, GALLBLADDER, AND BILIARY TREE: The liver is normal in size, shape, and attenuation. No focal hepatic lesion or biliary ductal dilatation is present. The gallbladder is unremarkable with no evidence of radiopaque gallstones, gallbladder wall thickening, or obvious pericholecystic inflammatory changes. PANCREAS: Unremarkable. SPLEEN: Unremarkable. ADRENAL GLANDS: Unremarkable. KIDNEYS AND URETERS: The kidneys are normal in size, shape, and attenuation. No hydronephrosis, hydroureter, or calculi seen. No perinephric stranding. BLADDER: Unremarkable. GASTROINTESTINAL TRACT: There is scattered moderate stool in the colon without distention. The small bowel loops are normal caliber.. The appendix is unremarkable. ABDOMINAL WALL: There is abdominal mass from previous hernia repair below the umbilicus. Superior to the mesh or small cyst areas of abdominal wall defect with intraperitoneal fat. There is a focal thickening and soft tissue density measuring 2.[address] 43/[address] 04/25/2023. This may represent scarring or fat stranding. LYMPH NODES: Normal. VASCULAR: Unremarkable. PELVIC VISCERA: There is moderate prostate enlargement. OSSEOUS STRUCTURES: There is mild degenerative disc changes L2-3 disc level with mild ventral spondylosis L2-3 and L3-4 disc level. No aggressive lytic or sclerotic process seen. CT/CT abdomen pelvis wo IV con IMPRESSION: Lower anterior wall hernia repair with mesh in place. Superior to the mesh midline abdominal wall hernia containing intraperitoneal fat at several levels and a soft tissue density likely scar or fat stranding. It is stable to previous CT 04/25/2023. Moderate prostate enlargement. TODAYS VISIT [place] #Shelli Live He continues on his Dexilant , dicyclomine, mesalamine, and simethicone; and now colace bid. HE HAS NOT GONE FOR HIS labs in quite a long time and because of this we really do not have any monitoring of his transaminases for a couple of years. He also has not gone for his PCP's fasting metabolic panels....so I will order only a liver panel and have him go for these non fasting to promote ease. He just had surgery for his abdominal pain, he had to have additional mesh but he feels much better and is healing well! He was put on colace and he feels that this works better that the dulcolax as the dulcolax gave him fecal urgency. Taking this is obviously ok with me. He is due for his repeat colonoscopy due to some large sessile polyps removed 3 years ago. There are no prior problems with anesthesia or sedation. He denies any cardiac or respiratory problems. There are no infectious disease problems. ROV 6 mos. [facility] Medical History (Updated 12/02/24 @ 14:36 by BRITTANI Wilson) Physical exam Incisional hernia (10/12/24) Hepatitis Seasonal allergies Cough Hx of influenza Congestion of nasal sinus Type 2 diabetes mellitus OAB (overactive bladder) Hyperlipidemia LDL goal <70 Abdominal wall hernia Personal history of nicotine dependence History of COVID-19 Obesity (BMI 30-39.9) Insomnia COPD (chronic obstructive pulmonary disease) Allergic rhinitis Ulcerative colitis Surgical History Umbilical hernia Hx of tonsillectomy History of incisional hernia repair History of cervical spinal surgery History of colonoscopy History of appendectomy (~2008) History of esophagogastroduodenoscopy (EGD) Family History Father Diabetes HTN (hypertension) Heart attack Mother Skin cancer HTN (hypertension) Diabetes Paternal Aunt Heart attack Sister Skin cancer Social History Household Members: Spouse Housing: Apartment Are you a primary critical care technician to a significant other at home: No Do you presently have visiting nurse or other home services: No Alcohol intake: never Patient Tobacco Use Status: Former Tobacco user Tobacco use type: Cigarette Years Smoked: (former smoker - onset 15yo, 1ppd x 36yrs, 35pyh, quit 2011) e-Cigarette/Vaping Use: Never Used Second Hand Smoke Exposure: No Substance Use Type: Marijuana service: No Current occupational status: retired Cognitive needs: No Hearing needs: No Vision needs: No Review of Systems Const Denies fatigue, Denies fever(s), Denies night sweats, Denies poor appetite and Denies weight loss ENT Reports Normal hearing present, Denies dental pain, Denies dysphagia, Denies hearing loss, Denies mouth pain, Denies odynophagia, Denies throat swelling, Denies tongue swelling and Reports other (Dentition adequate) Card Reports no additional complaints Resp Reports no additional complaints GI Details: Denies abdominal pain, Denies melena, Denies bloating, Denies hematochezia, Reports constipation, Reports GI cramping, Denies dysphagia, Denies excessive flatus, Denies early satiety, Reports heartburn, Denies diarrhea, Denies nausea, Denies odynophagia, Denies vomiting and Denies hematemesis Skin/Breast Denies pruritus, Denies lesions, Denies rash and Denies jaundice Neuro Reports Normal hearing present and Denies Abnormal speech present Endo Denies fatigue Aller/Immun Denies throat swelling and Denies tongue swelling Physical Exam Vital Signs: Last Vital Signs Pulse 76 12/02/24 14:02 BP 86/66 L 12/02/24 14:02 Pulse Ox 95 12/02/24 14:02 Oxygen Delivery Method Room Air 12/02/24 14:02 BMI result Body Mass Index 29.7 Const General: cooperative, no acute distress, well developed and well groomed Nutritional Appearance: well nourished and obese Orientation/consciousness: oriented to person, oriented to place and oriented to time Limitations: language barrier HEENT Head: Yes normocephalic and Yes atraumatic Eyes General: appearance normal, both eyes and all related structures Pupils: Equal, round and reactive pupils present Neck Neck: Yes normal visual inspection and Yes no lymphadenopathy Thyroid: Thyroid normal Resp Effort & Inspection: normal respiratory effort and able to speak in complete sentences Auscultation: clear to auscultation bilaterally Cardio Rate: regular rate Rhythm: regular rhythm Heart sounds: Normal, physiologic split S2 sound present Peripheral pulses: radial pulses present and posterior tibial pulses present GI Inspection: No distended, No Abdominal panniculus present and Yes obesity Palpation (GI): Soft to palpation, nontender, no guarding, not rigid and No hepatosplenomegaly present Percussion: Yes normal to percussion Auscultation: normal bowel sounds Rectal Exam - Male: Yes deferred Abdomen image: 2 1. surgical scars 2. Skin General skin exam: no rashes or lesions noted, turgor normal, skin not dry, no jaundice, No spider nevi and no striae Rashes: no rashes Nails: normal Neuro General: oriented to person, oriented to place and oriented to time Cranial nerves: Yes Equal, round and reactive pupils present and Yes Normal hearing present Speech: No Abnormal speech present Extrem General: Yes normal to inspection, No clubbing, No cyanosis and No edema Psych Appearance: grossly normal and well kempt Mental Status: mental status grossly normal Speech and movement: Normal speech and movement present Affect: Animated affect present Attitude: cooperative Thought process: Normal thought process present and not confabulating Thought content: Normal thought content present Insight: Fair insight present (Psych) Judgement: Fair judgement present (Psych) Assessment & Plan Assessment & Plan (1) GUZMAN (nonalcoholic steatohepatitis): Comment: BASELINE LABS: 10/2018 Hep B immune, not to Hep A or C, HIV negative, autoimmune work up neg, AFP 2.9, Ferritin 532, GGT 66. AST/ALT 62/151 Current Laboratory Tests 11/07/23 Unknown Total Bilirubin 0.8 AST 21 ALT 44 H Alkaline Phosphatase 93 ULTRASOUND OF THE ABDOMEN 08/14/22 IMPRESSION: There is generalized increase in hepatic echotexture, consistent with fatty infiltration or hepatocellular disease. Characteristic pericholecystic sparing favors fatty infiltration. Provided history of GUZMAN noted. No focal hepatic mass or intrahepatic biliary dilatation is seen. ? Code(s): K75.81 - Nonalcoholic steatohepatitis (GUZMAN) Category: Medical (2) Sessile colonic polyp: Comment: (07/31/21 scope=2 sessile TA - repeat 3 years in 2024) Code(s): K63.5 - Polyp of colon Category: Medical (3) Chronic idiopathic constipation: Code(s): K59.04 - Chronic idiopathic constipation Category: Medical (4) GERD (gastroesophageal reflux disease): Code(s): K21.9 - Gastro-esophageal reflux disease without esophagitis Category: Medical Qualifiers: Esophagitis presence: without esophagitis Qualified Code(s): K21.9 - Gastro-esophageal reflux disease without esophagitis (5) COPD (chronic obstructive pulmonary disease): Comment: Moderate degree of chronic obstructive pulmonary disease, ., SEC TO PAST h/o SMOKING STABLE AT THIS TIME. HE CLAIMS THAT HIS BREATHING IS MUCH BETTER ESPECIALLY SINCE HE HAS LOST SOME WEIGHT. Code(s): J44.9 - Chronic obstructive pulmonary disease, unspecified Category: Medical Qualifiers: COPD type: emphysema Emphysema type: panlobular Qualified Code(s): J 43.1 - Panlobular emphysema (6) Ulcerative colitis: Code(s): K51.90 - Ulcerative colitis, unspecified, without complications Category: Medical (7) Pre-op examination: Code(s): Z01.818 - Encounter for other preprocedural examination Category: Medical Plan [place] #Shelli Live He continues on his Dexilant , dicyclomine, mesalamine, and simethicone; and now colace bid. HE HAS NOT GONE FOR HIS labs in quite a long time and because of this we really do not have any monitoring of his transaminases for a couple of years. He also has not gone for his PCP's fasting metabolic panels....so I will order only a liver panel and have him go for these non fasting to promote ease. He just had surgery for his abdominal pain, he had to have additional mesh but he feels much better and is healing well! He was put on colace and he feels that this works better that the dulcolax as the dulcolax gave him fecal urgency. Taking this is obviously ok with me. He is due for his repeat colonoscopy due to some large sessile polyps removed 3 years ago. There are no prior problems with anesthesia or sedation. He denies any cardiac problems, and is COPD is well controlled. There are no infectious disease problems. ROV 6 mos. Orders: Orders 2 Liver Panel Today K75.81 - Nonalcoholic steatohepatitis (GUZMAN) Colonoscopy - GI Use Only Today Medications: New 2 bisacodyl (Dulcolax (bisacodyl)) 10 mg (2 x 5 mg) PO BEDTIME 2 days 4 tabs 0RF polyethylene glycol 3350 (Miralax) 238 grams PO ONCE 1 day 238 grams 0RF colonoscopy prep Changed 2 From dexlansoprazole 60 mg PO DAILY 30 caps 2RF K21.9 - Gastro-esophageal reflux disease without esophagitis To dexlansoprazole 60 mg PO DAILY 90 days 90 caps 1RF K21.9 - Gastro-esophageal reflux disease without esophagitis Refilled 2 simethicone (Gas Relief Extra Strength) 125 mg PO BID-QID 120 caps 6RF R14.0 - Abdominal distension (gaseous) docusate sodium (Colace) 100 mg PO BID 60 caps 6RF mesalamine 2.4 grams (2 x 1.2 gram) PO DAILY 180 tabs 6RF K51.90 - Ulcerative colitis, unspecified, without complications dicyclomine 20 mg PO BID 60 tabs 6RF R10.9 - Unspecified abdominal pain Discontinued 2 sucralfate Discontinued Reason: Patient Completed Course 20 mL PO QNOON 1,000 mL 0RF On Hold 2 bisacodyl Hold Comment: Doctor's Order 10 mg (2 x 5 mg) PO BEDTIME 60 tabs 6RF K59.04 - Chronic idiopathic constipation Coding Level of Care Code Est Pt Level 4 (54406) Diagnoses GUZMAN (nonalcoholic steatohepatitis) K75.81 Sessile colonic polyp K63.5 Chronic idiopathic constipation K59.04 Gastroesophageal reflux disease without esophagitis K21.9 Esophagitis presence: without esophagitis Panlobular emphysema J43.1 COPD type: emphysema Emphysema type: panlobular Ulcerative colitis K51.90 Pre-op examination Z01.818
[2024-12-02 14:02] VITALS: BP 86/66; PULSE 76; O2SAT 95; BMI 29.7
--- OUTSIDE RECORDS SUMMARY | 2024-12-02 16:15 | XMS_ITS | Data Portability ---
Author Organization [facility], Pr in - [facility] Address [address] [place] [phone] Care Team Providers Care Territory Outside Sales Manager Name Role Phone HIM RICKEY OTHER Assessment [...] rapid strep group A, [facility] [address] [place] [address], [phone] 21:55:34 Referral None recorded. Procedures None recorded. Surgeries None recorded. Imaging None recorded. Medication Orders oseltamivir [address] Tariff #[id number], [address] [place], [place], [phone], 21:08:58 Tamiflu 75 mg capsule 2024 025 SUNITA Mabaya #[id number], [address] [place], [place], [id number], 21:09:03 Patient TargetsNo targets recorded. Patient InstructionsNo instructions recorded. Reason for Referral None Reported. Results Created Date Observation Date Name Description Value Unit Range Abnormal Flag Note LastModifiedBy Organization Detail LastModifiedTime 09/16/1909/15/2024 rapid strep group A, throa t Strep negati ve Not Available Main - [facility] ed [address] [facility], [place], [phone] 09/15/2024 21:14:27 Result Notes None recorded. Medical Equipment None Reported. Allergies Allergen ID Allergen Name Allergen Category Reaction Reaction Severity Criticality Documentation Date Start Date Code Code System Note Provider Name and Address Organization Details Recorded Time 62313 Product containin g penicilli n (product) medicatio n Not available Not available Not available 09/15/2024 [id number] SNOMED Not Available [facility] - production [...] SNOMED-CT Code Diagnosis ICD10 Code Diagnosis Note [id number] Rhett Menendez MD Main - [facility] [address] [place] [phone] 09/15/2024 21:01:19 09/20/2024 22:21:01 Influenza caused by Influenza A virus [id number] J09.X2 Health Concerns Section Related Observation LastModified by Organization Detai ls LastModified Time None Recorded Concern Status LastModified by Organization Details LastModified Time None Recorded Advance Directives Directive None Recorded Payers Insurance Date Sequence Insurance Name Policy Number Policy Smith Covered Member ID Smith Member ID Guarantor Name 09/15/2024 1 [facility] - DOS ON OR AFTER 2022 - DUAL ELIGIBLE - INTERMEDIATE OPTIONS AND ONE CARE (MEDICARE REPLACEMENT/ADV ANTAGE - HMO) Kali Nicholas [id number] Kali Nicholas Notes Date Note Type Note [...] : Comments: PMH- colitis Referral taken via [employer]. Patient calling in to place a referral, [...] He also reports being unable to sleep. Herbicide Sprayer Organization Information for Roberta Wilson Business Legal Name: [employer]? Address: [address] [place] [address], Account Installation Specialist: Max Carlos MD JERICA No.: [id number] Herbicide Sprayer POC Test Results from Roberta Wilson Rapid strep test (20:56:47) Strep: - .................... .................... .................... .................... .................... .................... .................... . Herbicide Sprayer Note From Roberta Wilson: Sent to a [...] pink, warm, dry; Rapid strep test: neg; [facility] consulted and orders Tamiflu 75mg PO. [facility] sends script to pt's pharmacy for Tamiflu to start tomorrow. Tamiflu 75mg PO administered without incident. Red flags discussed. Pt has no further questions. [facility] Lab Orders: rapid strep group A, throat: Performed .................... .................... .................... .................... .................... .................... .................... . [facility] Consulted: Rhett Menendez .................... .................... .................... .................... .................... .................... .................... . Disposition: Fulfilled Rhett Menendez MD [address] [facility],[address], [place], [phone], [place] - STEPHANIE BERG 09/20/2024 21:55:36
== END 2024-12-02 14:27 | disposition home or self-care (01) ==
LOC: HO.HGI 13:45
PROVIDERS: PCP Internal Medicine; Visit Provider Nurse Practitioner
DX: K51.90 Ulcerative colitis, unspecified, without complications (principal); K75.81 Nonalcoholic steatohepatitis (NASH); K59.04 Chronic idiopathic constipation; K21.9 Gastro-esophageal reflux disease without esophagitis; J43.1 Panlobular emphysema
CPT/HCPCS: 99214

== ENCOUNTER 2025-01-14 13:29 | Outpatient (AMB) | payer OTHER, SELFPAY ==
--- NOTE | 2025-01-14 13:32 | A.OFFVIS_ITS ---
Vital Signs 01/14/25 13:33 Height 5 ft 9 in Weight 201 lb 4.513 oz BMI 29.7 BP 114/68 Blood Pressure Location Lt brachial Position Sitting Pulse 71 Pulse Source Pulse Oximeter Pulse Oximetry (%) 97 Oxygen Delivery Method Room Air Intake Visit Reasons: T2DM Intake Note: Patient present today for Type 2 Diabetes Mellitus Last Diabetic eye exam: 11/2024 Last Podiatry Visit: 11/2024 Random Glucose: 125 mg/dl HgA1C: 5.8% Ophthalmic Technician Apprentice Required: Yes Ophthalmic Technician Apprentice Language: Bottler Helper Services: Ophthalmic Technician Apprentice Present Ophthalmic Technician Apprentice Name: Charanjit [id number] Information Interpreted: non-clinical & clinical Accompanied by: Self / Same As Patient Allergies Penicillins (PENICILLINS) Allergy (Unknown, Verified 01/14/25 13:41) ANAPHYLAXIS Medication List - Last Reconciled 01/14/25 by Asya Loo PA-C [adjustable bed rail As directed] albuterol sulfate 2.5 mg inhalation Q6H PRN atorvastatin 20 mg PO BEDTIME 90 days [bath mat As directed] bisacodyl 10 mg (2 x 5 mg) PO BEDTIME Held on 12/02/24. Instructions: Doctor's Order bisacodyl (Dulcolax (bisacodyl)) 10 mg (2 x 5 mg) PO BEDTIME 2 days blood sugar diagnostic (FreeStyle Lite Strips) Use daily As directed to check blood glucose blood-glucose meter (FreeStyle Lite Meter kit) Use daily As directed to check blood sugars bupropion HCl XL 150 mg PO DAILY hngfdvftxr-lzuoziwveacim-kmje 50-300-40 mg (Fioricet) 1 cap PO Q4-6H PRN clonazepam 1 mg PO 1 tab in pm and 1/2 tab Qam; clotrimazole-betamethasone 1-0.05 % 1 appl topical BID cyclobenzaprine 10 mg PO TID PRN cyclosporine 0.05% 1 drp ophthalmic (eye) BID dexlansoprazole 60 mg PO DAILY 90 days diclofenac sodium 3% 1 appl topical BID PRN 30 days dicyclomine 20 mg PO BID docusate sodium (Colace) 100 mg PO BID dulaglutide (Trulicity) 1.5 mg (0.5 mL) subcut QWEEK emollient combination no.32 (EpiCeram topical emulsion, extended release) topical escitalopram oxalate (Lexapro) 10 mg PO DAILY fluticasone propionate 50 mcg/actuation 2 sprays intranasal DAILY hydrocortisone 2.5% (Proctosol HC) 1 appl NV BID Incruse Ellipta 62.5 mcg/actuation (umeclidinium) 1 inh PO DAILY NS ketoconazole 2% appl topical DAILY PRN lancets (FreeStyle Lancets) use daily as directed to check blood glucose mesalamine 2.4 grams (2 x 1.2 gram) PO DAILY montelukast 10 mg PO DAILY gg-rit-aqdsv-E1-jusagxb-odeeps 923-00-945-300 mcg (Centrum Silver Men) 1 tab PO DAILY oxybutynin chloride ER 10 mg PO DAILY 90 days polyethylene glycol 3350 (Miralax) 238 grams PO ONCE 1 day polyvinyl alcohol 1.4% 1 drp ophthalmic (eye) QID propranolol ER 80 mg PO BID rivaroxaban (Xarelto) 20 mg PO DAILY [shower head As directed] simethicone (Gas Relief Extra Strength) 125 mg PO BID-QID sumatriptan succinate mg PO tadalafil (Cialis) 5 mg PO DAILY 90 days triamcinolone acetonide 0.1% 1 appl topical BID-TID Ventolin HFA 90 mcg/actuation (albuterol sulfate) 2 puffs PO QID PRN NS HPI HPI T2DM: Details: Patient is a 64-year-old male with a significant past medical history of type 2 diabetes, hyperlipidemia, fatty liver, erectile dysfunction, anxiety and depression presenting today for consultation regarding his diabetes. Ophthalmic Technician Apprentice: Charanjit Herron: He was diagnosed with diabetes in 2022. His last A1c was 5.8 and today it is unchanged. He is currently treated with trulicity 1.5 mg weekly. -His blood sugars have been great around 110-130 fasting. -Jardiance caused urinary sx, torated metformin most of the time but at times had GI upset. Likes being off of this. He has been following a anaesthetic technician which he finds helpful modifications. He has started exercising as well which is helping control his bs. Follows with Podiatry. Denies any peripheral neuropathy. Follows with ophthalmology and denies any retinopathy. He denies any hypo or hyperglycemic events. CV: Blood pressure today in the office is 114/68. He denies any chest pain, shortness of breath or palpitations. He is on propranolol 80 mg twice a day for tremors. Cholesterol is managed with atorvastatin 20 mg daily. Last LDL 57 PFSH Medical History (Updated 12/02/24 @ 14:36 by BRITTANI Wilson) Physical exam Incisional hernia (10/12/24) Hepatitis Seasonal allergies Cough Hx of influenza Congestion of nasal sinus Type 2 diabetes mellitus OAB (overactive bladder) Hyperlipidemia LDL goal <70 Abdominal wall hernia Personal history of nicotine dependence History of COVID-19 Obesity (BMI 30-39.9) Insomnia COPD (chronic obstructive pulmonary disease) Allergic rhinitis Ulcerative colitis Surgical History Umbilical hernia Hx of tonsillectomy History of incisional hernia repair History of cervical spinal surgery History of colonoscopy History of appendectomy (~2008) History of esophagogastroduodenoscopy (EGD) Family History Father Diabetes HTN (hypertension) Heart attack Mother Skin cancer HTN (hypertension) Diabetes Paternal Aunt Heart attack Sister Skin cancer Social History Household Members: Spouse Housing: Apartment Are you a primary lpn care manager to a significant other at home: No Do you presently have visiting nurse or other home services: No Alcohol intake: never Patient Tobacco Use Status: Former Tobacco user Tobacco use type: Cigarette Years Smoked: (former smoker - onset 15yo, 1ppd x 36yrs, 35pyh, quit 2011) e-Cigarette/Vaping Use: Never Used Second Hand Smoke Exposure: No Substance Use Type: Marijuana service: No Current occupational status: retired Cognitive needs: No Hearing needs: No Vision needs: No Physical Exam Vital Signs: Last Vital Signs Pulse 71 01/14/25 13:33 BP 114/68 01/14/25 13:33 Pulse Ox 97 01/14/25 13:33 Oxygen Delivery Method Room Air 01/14/25 13:33 BMI result Body Mass Index 29.7 Const Orientation/consciousness: patient oriented x3 Neck Neck: Yes no lymphadenopathy Thyroid: Thyroid normal Carotids: no bruits Resp Auscultation: clear to auscultation bilaterally Cardio Rate: regular rate Rhythm: regular rhythm Heart sounds: S1 normal heart sound present and S2 normal heart sound present Peripheral pulses: dorsalis pedis present Neuro General: patient oriented x3, gait normal and no focal motor deficits Extrem Other: Monofilament sensation intact bilaterally. Vibratory sensation intact bilaterally. Skin intact. General: Yes normal to inspection Results AMB Hemoglobin A1c AMB Hemoglobin A1c 5.8 % Last Edit by GEORGETTE Vera on 01/14/25 13:54 Results Reviewed Results Reviewed: Laboratory Last Values Glucose (Clinic) 125 mg/dL (60-115) H 01/14/25 13:43 Laboratory Tests 09/29/24 12/02/24 13:07 15:47 Sodium 139 Potassium 4.0 Chloride 105 Carbon Dioxide 29 Anion Gap 9 L BUN 14 Creatinine 0.96 Estimated GFR > 60 Fasting Glucose 125 H Hemoglobin A1c % 5.8 AST 27 ALT 41 H Assessment & Plan Assessment & Plan (1) Controlled type 2 diabetes mellitus: Code(s): E11.9 - Type 2 diabetes mellitus without complications Category: Medical Plan: continue current treatment plan f/u 3-4 months or sooner prn (2) Dyslipidemia: Code(s): E78.5 - Hyperlipidemia, unspecified Category: Medical Plan: Continue atorvastatin 20 mg Orders: Orders AMB Hemoglobin A1c Today E11.8 - Type 2 diabetes mellitus with unspecified complications, Z13.9 - Encounter for screening, unspecified Coding Level of Care Code Est Pt Level 4 (08045) Complex EM visit Add On G2211 Diagnoses Controlled type 2 diabetes mellitus E11.9 Dyslipidemia E78.5
--- OUTSIDE RECORDS SUMMARY | 2025-01-14 13:32 | XMS_ITS | Clinical Summary ---
Author Organization [facility] Address [address] [place] [phone] Phone Care Team Providers Care Food Service Name Role Phone Shelli Kwan MD Primary Care Provid er Allergies Active Allergy Reactions Criticality Noted Date Comments Penicillins Rash High 11/04/2017 Other reaction(s): Rash Medications INCRUSE ELLIPTA 62.5 mcg/actuation inhalation Inhale 1 puff into the lungs daily. Active zolpidem (AMBIEN) 10 mg tablet Take 10 mg by mouth nightly at bedtime as needed. Active triamcinolone acetonide 0.1 % cream 10/25/2022 Active tolterodine (DETROL LA) 4 MG 24 hr capsule Take 4 mg by mouth. 09/05/2022 Active tadalafiL (CIALIS, ADCIRCA) 20 MG tablet 1 tablet as needed Orally Once a day 07/05/2022 Active sucralfate (CARAFATE) 100 mg/mL suspension TAKE 10 ML BY MOUTH FOUR TIMES DAILY BEFORE MEAL/BEDTIME 06/27/2023 Active propranoloL (INDERAL) 80 MG immediate release tablet 1 tablet Orally Twice a day Active metFORMIN (GLUCOPHAGE) 500 MG tablet Take 500 mg by mouth 2 (two) times a day with meals. 04/26/2023 Active mesalamine (LIALDA) 1.2 gram EC tablet 2 tablets with a meal Orally Once a day 07/25/2022 Active meloxicam (MOBIC) 7.5 MG tablet TAKE 1 TABLET BY MOUTH EVERY DAY. DO NOT TAKE WITH OTHER NSAIDS Active escitalopram oxalate (LEXAPRO) 10 MG tablet 1 tablet Orally Once a day 06/25/2022 Active dexlansoprazole delayed release (DEXILANT) 60 mg capsule Take 1 capsule by mouth daily. Active clonazePAM (KLONOPIN) 1 MG tablet TAKE ONE-HALF TABLET BY MOUTH EVERY MORNING AND TAKE 1 TABLET BY MOUTH EVERY NIGHT AT BEDTIME Active buPROPion (WELLBUTRIN XL) 300 MG ER 24 hr tablet 1 tablet in the morning Orally Once a day 06/25/2022 Active atorvastatin (LIPITOR) 20 MG tablet Take 20 mg by mouth. 06/05/2023 Active amitriptyline (ELAVIL) 25 MG tablet Take 25 mg by mouth. 06/14/2022 Active Active Problems Problem Noted Date Diagnosed Date Localized edema 08/04/2023 Assessment & Plan (08/04/2023 9:42 AM EST): He does get swelling especially at the end of the day and does have venous varicosities I am going to check a venous reflux study Varicose veins of bilateral lower extremities with other complications 08/04/2023 Assessment & Plan (08/04/2023 9:41 AM EST): As mentioned I have ordered a venous reflux study I will see this patient thereafter in follow-up. I will then tailor more specific therapy. Diabetes 08/04/2023 Assessment & Plan (08/04/2023 9:42 AM EST): A1c should be less than 7 and LDL less than 70 mg/dL he is on high intensity statin therapy I talked to him at length about diet and exercise Pure hypercholesterolemia 08/04/2023 Assessment & Plan (08/04/2023 9:42 AM EST): LDL should be less than 70 he is on Lipitor 20 mg a day Social History Tobacco Use Types Packs/Day Years Used Date Smoking Tobacco: Never Assessed Education Answer Date Recorded Are you interested in more education? Not on pavan e 08/01/2023 Are you concerned about learning? Not on file 08/01/2023 No 08/01/2023 No 08/01/2023 Digital Access Answer Date Recorded No 08/01/2023 No 08/01/2023 Reliable internet access at home? Not on file 08/01/2023 Device with a working camera? Not on file Sex and Gender Information Value Date Recorded Sex Assigned at Not on file Legal Sex Male 11:08 AM EST Gender Identity Not on file Sexual Orientation Not on file Last Filed Vital Signs Vital Sign Reading Time Taken Comments Blood Pressure - - Pulse - - Temperature - - Respiratory Rate - - Oxygen Saturation - - Inhaled Oxygen Concentration - - Weight 95.3 kg (210 lb) 08/04/2023 9:31 AM EST Height - - Body Mass Index - - Plan of Treatment Health Maintenance Due Date Last Done Comments BLOOD PRESSURE 1960 CREATININE LEVEL 1960 HEMOGLOBIN A1C 1960 DEPRESSION SCREENING 1972 SMOKING Hx and SMOKELESS TOB ACCO SCREENING 1973 HEPATITIS C SCREENING 1978 HIV ONE-TIME SCREENING (18-6 5 YEARS) 1978 COLOGUARD 2005 COLONOSCOPY 2005 COLORECTAL CANCER SCREENING 2005 FIT TEST 2005 FOBT 2005 SIGMOIDOSCOPY 2005 VIRTUAL COLONOSCOPY 2005 ZOSTER VACCINES (1 of 2) 2010 PNEUMOCOCCAL VACCINES (50+ y ears) (2 of 2 - PCV) 02/23/2019 02/23/2018 DIABETIC EYE EXAM 08/04/2023 URINE MICROALBUMIN/CREATININ E RATIO 08/04/2023 COVID-19 VACCINE (1 - 2023-2 5 season) 2024 Adult Td,Tdap Booster 12/04/2024 12/04/2014 RSV VACCINE (1 - 1-dose 75+ series) 10/29/2035 HEPATITIS A VACCINES Aged Out No long er eligible based on patient's age to complete this topic HIB VACCINES Aged Out No longer eligi ble based on patient's age to complete this topic MENINGOCOCCAL VACCINES (ACWY) Aged Out No longer eligible based on patient's age to complete this topic MENINGOCOCCAL VACCINES (B) Aged Out N o longer eligible based on patient's age to complete this topic Medical Devices Not on file Insurance [facility] MEDICARE REPLACEMENT MEDICARE PART A & [facility] MEDICARE REPLACEMENT [place] [id number] MEDICARE PART A & B [facility] MEDICARE REPLACEMENT MEDICARE PART A & B [facility] MEDICARE REPLACEMENT MEDICARE PART A & B [facility] MEDICARE REPLACEMENT MEDICARE PART A & B [facility] MEDICARE REPLACEMENT MEDICARE PART A & B Care Teams Food Service Relationship Specialty Start Date End Date Shelli Kwan MD [address] [place] [address] PCP - General Internal Medicine 08/01/23 Additional Source Comments The information contained in this document represents components of the legal health record. It is not the complete legal health record.[facility]
--- OUTSIDE RECORDS SUMMARY | 2025-01-14 13:32 | XMS_ITS | Encounter Summary ---
Author Organization [employer] Address [address] [facility] 7 [place] [address] Care Team Providers Care Tight Cooper Name Role Phone Unavailable Primary Care Provider Unavailabl e Encounter Details Date Type Department Care Team (Late Contact Info) Description 10/08/2022 Abstract [facility] ADULT DENTAL [address] [place] [address] Raymundo, Erum [address] [place] [address] Social History Tobacco Use Types Packs/Day Years [...] Department Care Team (Late Contact Info) Description 04/29/2025 2:00 PM EDT Office Visit [facility] OPTOMETRY [address] [place] [address] Saniya Veliz, OD [address] [place] [address] documented as of this encounter Visit Diagnoses Not on filedocumented in this encounter
--- OUTSIDE RECORDS SUMMARY | 2025-01-14 13:32 | XMS_ITS | Data Portability ---
Author Organization [facility] [employer] [facility], [facility] Address [address] [place] [id number] Care Team Providers Care Treating And Pumping Supervisor Name Role Phone HIM RICKEY OTHER Assessment [...] rapid strep group A, throat 2024 025 [facility] [address] [place] [address], [phone] 21:55:34 Referral None recorded. Procedures None recorded. Surgeries None recorded. Imaging None recorded. Medication Orders oseltamivir 75 mg capsule 2024 025 [facility] #[id number], [address] [place], [place], [id number], 21:08:58 Tamiflu 75 mg capsule 2024 025 [id number], [address] [place], [place], [phone], 21:09:03 Patient TargetsNo targets recorded. Patient InstructionsNo instructions recorded. Reason for Referral None Reported. Results Created Date Observation Date Name Description Value Unit Range Abnormal Flag Note LastModifiedBy Organization Detail LastModifiedTime 09/16/1909/15/2024 rapid strep group A, throa t Strep negati ve Not Available Main - [facility] ed [address] [place] [address], [phone] 09/15/2024 21:14:27 Result Notes None recorded. Medical Equipment None Reported. Allergies Allergen ID Allergen Name Allergen Category Reaction Reaction Severity Criticality Documentation Date Start Date Code Code System Note Provider Name and Address Organization Details Recorded Time 00689 Product containin g penicilli n (product) medicatio n Not available Not available Not available 09/15/2024 91717 8001 SNOMED Not Available [facility] - production [...] blood by Pulse oximetry Body temperature Systolic And Diastolic Provider Name and Address Organization Details Last Updated DateTime 5 77 /min 18 /min 96 % 96 % 98.1 [degF] 121/65 mm[Hg] Not Available [facility] - production 5 21:01:21 Social History None recorded. Functional Status None recorded. Mental Status None recorded. Family History Nothing Reported. Medical History No medical history recorded. Past Encounters Encounter ID Performer Location Encounter Start Date Encounter Closed Date Diagnosis/Indication Diagnosis SNOMED-CT Code Diagnosis ICD10 Code Diagnosis Note [id number] Rhett Menendez MD Main - [facility] [address] [place] [phone] 09/15/2024 21:01:19 09/20/2024 22:21:01 Influenza caused by Influenza A virus 965136873 J09.X2 Health Concerns Section Related Observation LastModified by Organization Detai ls LastModified Time None Recorded Concern Status LastModified by Organization Details LastModified Time None Recorded Advance Directives Directive None Recorded Payers Insurance Date Sequence Insurance Name Policy Number Policy Smith Covered Member ID Smith Member ID Guarantor Name 09/15/2024 1 [facility] DOS ON OR AFTER 2022 - DUAL ELIGIBLE - RETIREMENT OPTIONS AND ONE CARE (MEDICARE REPLACEMENT/ADV ANTAGE - HMO) Kali Nicholas [id number] Kali Nicholas Notes Date Note Type Note Provider Name and Address Organization Details Recorded Time 09/15/2024 text/html CRC Nurse Triage Notes (Claritza Best): Reason For Request: Yesterday pt has general illness symtpomsTested positive for Flu Yesterday, flu likesymptoms, fever, pain coughing, head pain. Denies: Increased work of breathing/labored with or without fever Unable to speak in full sentences without distress Discoloration of skin -cyanosis Needs to sleep sitting up, can t catch breath Shortness of breath in setting of confusion Chief Complaints: Cough, Common Cold, Breathing Problems PMH: Diabetes Mellitus Type 2, Sleep Apnea, Inflammatory Bowel Disease (Crohn's Disease, Ulcerative Colitis), Appendectomy PMH Reviewed at 09/15/2024 - Allergies Reviewed at 09/15/2024 - : Comments: PMH- colitis Referral taken via [employer]. Patient calling in to place a referral, [...] He also reports being unable to sleep. Fur Puller Organization Information for Roberta Wilson Business Legal Name: [employer]. Address: [address] [place] [address], Employment Clerk: Max CROCKETT No.: [id number] Fur Puller POC Test Results from Roberta Wilson Rapid strep test (20:56:47) Strep: - .................... .................... .................... .................... .................... .................... .................... . Fur Puller Note From Roberta Wilson: Sent to a [...] pink, warm, dry; Rapid strep test: neg; [facility] consulted and orders Tamiflu 75mg PO. [facility] sends script to pt's pharmacy for Tamiflu to start tomorrow. Tamiflu 75mg PO administered without incident. Red flags discussed. Pt has no further questions. [facility] Lab Orders: rapid strep group A, throat: Performed .................... .................... .................... .................... .................... .................... .................... . [facility] Consulted: Rhett Menendez .................... .................... .................... .................... .................... .................... .................... . Disposition: Fulfilled Rhett Menendez MD [address] [facility],[address], [place], [address], [place] - FlowPayPRAKASH, STEPHANIE 09/20/2024 21:55:36
--- OUTSIDE RECORDS SUMMARY | 2025-01-14 13:32 | XMS_ITS | Patient Health Record ---
Author Organization [facility] Address [address] [facility] [place] [address] Care Team Providers Care Bite Block Maker Name Role Phone Teresa ELLIS, Shelli Primary Care Provider Unavail able Juany Munson Unavailable [phone] Allergies Allergen (clinical drug ingredient) Drug/Non Drug [...] Twice a day; Duration: 30 days Active Gas Relief Extra Strength 125 MG Oral; Duration: 30 Days A ctive Jardiance Not-Taking Atorvastatin Calcium 20 MG 1 tablet Orally Once a day; Duration: 30 day(s) Active Tadalafil 20 MG 1 [...] Orally Once a day; Duration: 30 day(s) PRN Active Dexilant 60 MG [...] Active Proctosol HC 2.5 % 1 application Wine Specialist ally Twice a day Active Escitalopram [...] Problem Acquired hammer toe of right foot ([id number] ) Other hammer toe(s) (acquired), right foot (M20.41) Active confirmed Problem Acquired hammer toe of left foot ([id number] ) Other hammer toe(s) (acquired), left foot (M20.42) Active confirmed Problem Plantar wart (78996571) Plantar wart (B07.0) Active confirmed Problem Polyneuropathy due to type 2 diabetes mellitus (659242499) Type 2 diabetes mellitus with polyneuropathy (E11.42) Active confirmed Vital Signs Blood pressure diastolic 70 mm Hg 09/01/2024 Height 5ft9in in 09/01/2024 Blood pressure systolic 118 mm Hg 09/01/2024 Weight 202 lbs 09/01/2024 BMI 29.83 kg/m2 09/01/2024 Encounters Encounter Location Date Provider Diagnosis [address] [address] 01/28/2024 Juany Perica Tinea pedis of both feet B35.3 ; Tinea unguium B35.1 ; Type 2 diabetes mellitus with polyneuropathy E11.42 ; Plantar wart B07.0 and Pain in left foot M79.[address] [address] 04/01/2024 Juany Perica Tinea pedis of both feet B35.3 ; Tinea unguium B35.1 ; Type 2 diabetes mellitus with polyneuropathy E11.42 ; Plantar wart B07.0 and Pain in left foot M79.[address] [address] 06/15/2024 Juany Perica Tinea pedis of both feet B35.3 ; Tinea unguium B35.1 ; Type 2 diabetes mellitus with polyneuropathy E11.42 ; Plantar wart B07.0 and Pain in left foot M79.[address] [address] 09/01/2024 Juany Perica Tinea pedis of both feet B35.3 ; Other hammer toe(s) (acquired), right foot M20.41 ; Tinea unguium B35.1 ; Type 2 diabetes mellitus with polyneuropathy E11.42 ; Plantar wart B07.0 ; Pain in left foot M79.672 and Other hammer toe(s) (acquired), left foot M20.42 [facility] [address] [address] 11/17/2024 Juany Munson Assessments Encounter Date Diagnosis (ICD Code) Assessment Notes Treatment Notes Treatment Clinical Notes Section Notes 01/28/2024 Tinea pedis of both feet (ICD-10 [...] B35.1) 04/01/2024 Tinea unguium (ICD-10 - B35.1) 01/28/2024 Type 2 diabetes mellitus with polyneuropathy (ICD-10 - E11.42) 04/01/2024 Type 2 diabetes mellitus with polyneuropathy (ICD-10 - E11.42) 06/15/2024 Plantar wart (ICD-10 - B07.0) 09/01/2024 Type 2 diabetes mellitus with polyneuropathy (ICD-10 - E11.42) 06/15/2024 Pain in left foot (ICD-10 - M79.672) 09/01/2024 Plantar wart (ICD-10 - B07.0) 04/01/2024 Plantar wart (ICD-10 - B07.0) 01/28/2024 Plantar wart (ICD-10 - B07.0) 01/28/2024 Pain in left foot (ICD-10 - M79.672) 04/01/2024 Pain in left foot (ICD-10 - M79.672) 09/01/2024 Pain in left foot (ICD-10 - M79.672) 09/01/2024 Other hammer toe(s) (acquired), left foot (ICD-10 - M20.42) Plan Of Treatment Next Appt Details Provider Name:Juany luna, 01/21/2025 10:00:00 AM, [address] [place] [address], [phone], Insurance Providers Payer Name Payer Address Payer Phone Subscriber Number Group Number Insured Name Patient Relationship to Insured Coverage Start Date Coverage End Date [facility] [employer] Claims [address] [place] [address] [id number] Kali Munoz Self - patient is the insured Medical (General) History Medical History History ICD Code Anxiety Back,Hip,and Knee pain covid-19 Depression Diabetic Headaches/Migraines Hepatitis Hiatal hernia Lung disease Psychiatric disorder Reflux ( GERD) sinusitis COPD Colitis Chicken pox Cholesterol Surgical History Surgery Date(Month/Year) cervical (spine?) surgery 2017 hernia [phone] peritonitis 2019
[2025-01-14 13:33] VITALS: BP 114/68; PULSE 71; O2SAT 97; BMI 29.7
[2025-01-14 13:49] LABS: Glucose, Whole Blood 125 mg/dL (60-115)
== END 2025-01-14 14:19 | disposition home or self-care (01) ==
LOC: HO.ENCR 13:30
PROVIDERS: PCP Internal Medicine; Visit Provider Physician Assistant
DX: Z13.9 Encounter for screening, unspecified (principal); E11.8 Type 2 diabetes mellitus with unspecified complications; E11.9 Type 2 diabetes mellitus without complications; E78.5 Hyperlipidemia, unspecified

== ENCOUNTER → 2025-01-14 13:29 | Outpatient (BNVA) | payer OTHER, SELFPAY | PROVIDERS: PCP Internal Medicine; Visit Provider Physician Assistant | DX: E11.9 Type 2 diabetes mellitus without complications (principal); E78.5 Hyperlipidemia, unspecified; Z79.899 Other long term (current) drug therapy | CPT/HCPCS: 82947; 83036; 99212 ==

== ENCOUNTER 2025-02-08 20:49 | Inpatient (IN) | payer OTHER, SELFPAY ==
--- NOTE | ~2025-02-08 | XR_ITS ---
CLINICAL HISTORY: abd pain, hx obstruction 2 view abdomen Comparison: None provided Findings: No consolidation or effusion. Normal heart size. Diffuse air-fluid levels throughout the bowel with small bowel distention, for example in the left abdomen measuring 5.5 cm concerning for ileus or bowel obstruction. No acute fracture. Pelvic wall anchor clips. IMPRESSION: Small-bowel ileus versus obstruction. Consider follow-up CT. This document has been electronically signed by: Pranav Ferrera MD on 02/09/2025 00:55:07
--- NOTE | ~2025-02-08 | CT_ITS ---
CLINICAL HISTORY: eval for SBO CT ABDOMEN AND PELVIS WITH CONTRAST COMPARISON: CT/SR - CT ABDOMEN PELVIS WITHOUT IV CONTRAST - 05/18/2024 04:26 PM EST FINDINGS: Small-bowel obstruction is present. A few dilated loops of mid small bowel are noted, for example seen deep to the right anterior abdominal wall and measuring 3.8 cm in caliber on axial image 392 of series 4. A somewhat gradual transition point is noted in the right aspect of the abdomen on axial image 443. Distal to this are few borderline distended loops of mid small bowel, for example measuring approximately 2.6 cm in caliber on axial image 449. Somewhat gradual transition is noted in the right aspect of the abdomen on axial images 450-482. Distal to this is a short segment of distended small bowel measuring 3.6 cm in caliber on axial image 517, with a transition point noted in the left aspect of the abdomen on axial image 545. No evidence of pneumatosis. No abscess or free air. Hernia mesh is again noted in association with the anterior abdominal wall. Fluid and some nonspecific air-fluid levels are noted within nondilated and nonobstructed loops of colon. Appendix is not definitively visualized. 3 mm nodule is again noted within the periphery of the left lower lobe on axial image 73. Mild atelectatic changes are noted in the lower lungs. Small amounts of portal venous gas are noted within the liver, for example seen in the left hepatic lobe on axial image 140. Another example is seen in the left hepatic lobe on axial image 159. No focal liver lesion. Gallbladder is unremarkable. No visible stone. Stomach is not optimally distended which limits assessment. No CT evidence of acute pancreatitis. Spleen is enlarged and measures 13.8 cm on coronal image 69. Thickening of the adrenal glands is again noted. Both kidneys are unremarkable. No hydronephrosis or obstructing stone. Urinary bladder is underdistended which limits assessment for wall thickening. Abdominal aorta is normal in caliber without evidence of an aneurysm or dissection. Origins of the celiac axis, superior mesenteric artery, renal arteries, and inferior mesenteric artery are patent. Splenic vein, superior mesenteric vein, and inferior mesenteric vein demonstrate no evidence of thrombosis. No evidence of portal venous thrombosis. No lymphadenopathy or loculated fluid collection. The bone windows demonstrate no acute abnormalities. IMPRESSION: 1. Multiple segments of dilated mid small bowel are noted, with associated transition points as detailed above. Imaging appearance suggests a small-bowel obstruction. There is no pneumatosis, abscess, or free air. 2. There is noted to be small amounts of portal venous gas within the liver. While portal venous gas is nonspecific, ischemic bowel will need to be excluded. 3. Surgical consultation is recommended to determine appropriate management. 4. Additional findings are detailed above. This document has been electronically signed by: Raymundo Banerjee M.D. on 02/09/2025 04:51:28
--- NOTE | ~2025-02-08 | XR_ITS ---
CLINICAL HISTORY: Post NG tube placement 1 view chest x-ray Comparison: CT/SR - CT ABDOMEN PELVIS W IV CON - 02/09/25 03:20 EDT CR/SR - XR CHEST 2 VIEWS - 09/10/23 19:52 EDT Findings: Enteric sump tube has been placed since the patient's CT of the abdomen and pelvis from earlier today. This extends caudad to the field of view. However, the sideport projects over the gastric fundus. Lungs are well inflated. Cardiac silhouette is within normal limits. No focal areas of consolidation. No pleural effusion or pneumothorax. Spinal fusion hardware seen within the lower cervical spine. IMPRESSION: 1. Enteric sump tube as above. Please note that the distal tip is not included in the field of view. 2. Otherwise, unremarkable chest x-ray. This document has been electronically signed by: Darrell Loza MD on 02/09/2025 06:47:32
[2025-02-08 20:59] VITALS: BP 125/79; BP 146/69; PULSE 86; PULSE 88; RESP 16; TEMP 37; O2SAT 96; O2SAT 97; BMI 29.7
[2025-02-08 21:01] VITALS: BP 125/79; PULSE 88; RESP 16; TEMP 37; O2SAT 96
--- NOTE | 2025-02-08 21:15 | ED.NAVMDI ---
HPI - Nausea/Vomiting/Diarrhea General Chief complaint: Nausea/Vomiting/Diarrhea Stated complaint: CONTINUOUS DIARRHEA X12HRS Time Seen by Provider: 02/08/25 21:01 Source: patient, EMS and old records reviewed Mode of arrival: EMS Limitations: no limitations History of Present Illness HPI Narrative: 62-year-old male past medical history including diabetes, COPD, obesity, GUZMAN, ulcerative colitis, status post open appendectomy due to perforated appendix, incisional hernia repair with mesh presenting with crampy abdominal pain, several episodes of watery diarrhea ongoing for the last 24 hours or so. Describes having these symptoms the last time he had a bowel obstruction. Single episode of vomiting when he arrived to the hospital by EMS. No reported fever. Denies hematochezia or melena. No urinary complaints. Had been feeling well prior to this. Related Data Home Medications ?Medication ?Instructions ?Recorded ?Confirmed escitalopram oxalate 10 mg tablet 10 mg PO DAILY 01/18/21 01/14/25 (Lexapro) eehbeosh-hn-wsdxx 300 mcg-K 60 1 tab PO DAILY 01/18/21 01/14/25 mcg-lycop 600 mcg-lutein 300 mcg tablet (Centrum Silver Men) emollient combination no.32 topical 08/13/21 01/14/25 (EpiCeram topical emulsion, extended release) propranolol 80 mg capsule,24 80 mg PO BID 08/13/21 01/14/25 hr,extended release triamcinolone acetonide 0.1 % 1 appl topical BID-TID 08/13/21 01/14/25 topical cream ketoconazole 2 % topical cream appl topical DAILY PRN Rash 01/14/22 01/14/25 clonazepam 1 mg tablet 1 mg PO .COMPLEX 01/21/22 01/14/25 albuterol sulfate 2.5 mg/3 mL 2.5 mg inhalation Q6H PRN 05/16/22 01/14/25 (0.083 %) solution for nebulization Shortness Of Breath Or Wheezing cyclosporine 0.05 % eye drops in a 1 drp ophthalmic (eye) BID 06/05/23 01/14/25 dropperette bupropion HCl 150 mg 24 hr tablet, 150 mg PO DAILY 01/27/24 01/14/25 extended release rivaroxaban 20 mg tablet (Xarelto) 20 mg PO DAILY 01/27/24 01/14/25 polyvinyl alcohol 1.4 % eye drops 1 drp ophthalmic (eye) QID 12/02/24 01/14/25 sumatriptan succinate 50 mg tablet mg PO 12/02/24 01/14/25 Previous Rx's ?Medication ?Instructions ?Recorded hydrocortisone 2.5 % topical cream 1 appl WA BID hemorrhoids #30 grams 08/13/21 with perineal applicator (Proctosol HC) shower head #1 ea 01/28/23 clotrimazole-betamethasone 1 1 appl topical BID #45 grams 03/12/23 %-0.05 % topical cream cyclobenzaprine 10 mg tablet 10 mg PO TID PRN muscle spasm #20 04/30/23 tabs bisacodyl 5 mg tablet,delayed 10 mg (2 x 5 mg) PO BEDTIME #60 09/03/23 release tabs Held on 12/02/24. Instructions: Doctor's Order qyjitcammr-tcmukcguplpsu-dzqfvzdi 1 cap PO Q4-6H PRN headache #14 09/11/23 50 mg-300 mg-40 mg capsule caps (Fioricet) bath mat #1 ea 01/27/24 diclofenac sodium 3 % topical gel 1 appl topical BID PRN pain 30 06/22/24 days #100 grams Ventolin HFA 90 mcg/actuation 2 puff PO QID PRN for wheezing #18 07/13/24 aerosol inhaler (albuterol sulfate) grams tadalafil 5 mg tablet (Cialis) 5 mg PO DAILY 90 days #90 tabs 08/10/24 adjustable bed rail #1 ea 10/25/24 blood sugar diagnostic (FreeStyle #100 ea 11/19/24 Lite Strips) blood-glucose meter (FreeStyle #1 ea 11/19/24 Lite Meter kit) lancets 28 gauge (FreeStyle #100 ea 11/19/24 Lancets) Incruse Ellipta 62.5 mcg/actuation 1 inh PO DAILY #30 ea 12/01/24 powder for inhalation (umeclidinium) bisacodyl 5 mg tablet,delayed 10 mg (2 x 5 mg) PO BEDTIME 2 days 12/02/24 release (Dulcolax (bisacodyl)) #4 tabs dexlansoprazole 60 mg 60 mg PO DAILY 90 days #90 caps 12/02/24 capsule,biphase delayed release dicyclomine 20 mg tablet 20 mg PO BID #60 tabs 12/02/24 docusate sodium 100 mg capsule 100 mg PO BID #60 caps 12/02/24 (Colace) mesalamine 1.2 gram tablet,delayed 2.4 g (2 x 1.2 gram) PO DAILY #180 12/02/24 release tabs polyethylene glycol 3350 17 238 g PO ONCE colonoscopy prep 1 12/02/24 gram/dose oral powder (Miralax) day #238 grams simethicone 125 mg capsule (Gas 125 mg PO BID-QID #120 caps 12/02/24 Relief Extra Strength) atorvastatin 20 mg tablet 20 mg PO BEDTIME 90 days #90 tabs 01/03/25 fluticasone propionate 50 2 spray intranasal DAILY for 01/03/25 mcg/actuation nasal allergic rhinitis #48 grams spray,suspension oxybutynin chloride 10 mg 10 mg PO DAILY 90 days #90 tabs 01/03/25 tablet,extended release 24 hr montelukast 10 mg tablet 10 mg PO DAILY #90 tabs 01/20/25 dulaglutide 1.5 mg/0.5 mL 1.5 mg (0.5 mL) subcut QWEEK #2 mL 02/02/25 subcutaneous pen injector (Trulicity) Allergies Allergy/AdvReac Type Severity Reaction Status Date / Time Penicillins (PENICILLINS) Allergy Unknown ANAPHYLAXIS Verified 02/08/25 21:00 Review of Systems Review of Systems: as per HPI, full review of systems performed and negative but for the above mentioned pertinent positives and negatives. [facility] Past Medical History Attestation statement: The following information was validated with the patient. [facility] Narrative: Open appendectomy, hernia repair, denies alcohol or illicit substance use, denies tobacco use, diabetes, hypertension, nonalcoholic liver cirrhosis, COPD, ulcerative colitis Medical History (Updated 02/09/25 @ 05:33 by Rasheeda Young DO) Physical exam Incisional hernia (10/12/24) Hepatitis Seasonal allergies Cough Hx of influenza Congestion of nasal sinus Type 2 diabetes mellitus OAB (overactive bladder) Hyperlipidemia LDL goal <70 Abdominal wall hernia Personal history of nicotine dependence History of COVID-19 Obesity (BMI 30-39.9) Insomnia COPD (chronic obstructive pulmonary disease) Allergic rhinitis Ulcerative colitis Surgical History Umbilical hernia Hx of tonsillectomy History of incisional hernia repair History of cervical spinal surgery History of colonoscopy History of appendectomy (~2008) History of esophagogastroduodenoscopy (EGD) Family History Family History Father Diabetes HTN (hypertension) Heart attack Mother Skin cancer HTN (hypertension) Diabetes Paternal Aunt Heart attack Sister Skin cancer Social History Social History Household Members: Spouse Housing: Apartment Are you a primary complex care nurse to a significant other at home: No Do you presently have visiting nurse or other home services: No Alcohol intake: never Patient Tobacco Use Status: Former Tobacco user Tobacco use type: Cigarette Years Smoked: (former smoker - onset 15yo, 1ppd x 36yrs, 35pyh, quit 2011) e-Cigarette/Vaping Use: Never Used Second Hand Smoke Exposure: No Use of substances other than those prescribed or required for medical reasons: Yes Substance Use Type: Marijuana Advance Directives: No Advance Directives Information Provided: No service: No Current occupational status: retired Cognitive needs: No Hearing needs: No Vision needs: No Physical Exam Exam: Exam: GENERAL: Chronically ill-appearing, conversant, no acute distress. SKIN: Normal skin color for ethnicity, warm, dry, no rashes noted. HEENT: Normocephalic, atraumatic, no stridor, posterior oropharynx nonerythematous, EOMI. NECK: Soft, supple, full ROM, midline structures nontender, no step-offs, no deformities, no lymphadenopathy. CHEST: Heart regular rate and rhythm, no murmurs, symmetric chest rise and fall. PULMONARY: Clear to auscultation bilaterally, no labored breathing, no wheezes/rhales/ rhonchi. ABDOMINAL: Soft, nondistended, nontender, quiet bowel sounds in all quadrants. : Deferred. MUSCULOSKELETAL: Normal tone, full range of motion, no deformities, no peripheral edema. NEURO: Alert and oriented to person, CN II through XII intact, no focal neurologic deficits. PSYCHIATRIC: Flat affect, fluid speech, appropriate demeanor. Vital Signs: Vital Signs: Last Vital Signs Temp 97.8 F 02/09/25 05:12 Pulse 78 02/09/25 05:12 Resp 16 02/09/25 05:12 BP 122/81 02/09/25 05:12 Pulse Ox 98 02/09/25 05:12 O2 Del Method Room Air 02/09/25 05:12 BMI result Body Mass Index 29.7 Medications Administered Discontinued Medications Generic Name Dose Route Start Last Admin Trade Name Freq PRN Reason Stop Dose Admin Diatrizoate Meglum/Diatrizoate Sod 30 ml 02/09/25 03:29 02/09/25 03:30 Diatrizoate Meglumine, Sodium 30 Ml Solution PO 02/09/25 03:30 30 ml ONCE ONE Administration Lactated Ringer's 1,000 mls @ 999 mls/hr 02/08/25 23:34 02/09/25 02:30 Lr IV 02/09/25 00:34 Infused .Q1H1M ONE Infusion Iohexol 85 ml 02/09/25 03:23 02/09/25 03:24 Iohexol 350 Mg/Ml 100 Ml Infus..Btl IV 02/09/25 03:24 85 ml ONCE ONE Administration Loperamide HCl 2 mg 02/08/25 23:34 02/09/25 00:02 Loperamide Hcl 2 Mg Capsule PO 02/08/25 23:35 2 mg ONCE ONE Administration Morphine Sulfate 4 mg 02/09/25 01:04 02/09/25 01:17 Morphine Sulfate 4 Mg/Ml Cartridge IVPUSH 02/09/25 01:05 4 mg ONCE ONE Administration Protocol Ondansetron HCl 4 mg 02/09/25 01:04 02/09/25 01:18 Ondansetron Hcl 4 Mg/2 Ml Vial IVPUSH 02/09/25 01:05 4 mg ONCE ONE Administration Medical Decision Making Medical Decision Making MDM Narrative: Patient presents today with a chief complaint of acute diarrhea. Differential diagnosis includes enteritis, colitis such as ischemic or C diff, inflammatory bowel disease, bacterial or viral diarrhea, GI bleed, hypovolemia, among others. Patient is having abdominal pain. Patient has not had any recent antibiotics. X-ray shows evidence of dilated loops of bowel, concern for small bowel obstruction. Will add on a CT to evaluate this further. CT shows small bowel obstruction with multiple transition points. His pain is worsening. Medicated with morphine and Zofran. We will discuss case with General surgery on-call. General surgery to hospital for further care and evaluation of SBO with transition points. Admitted in guarded condition. Differential Diagnosis Differential Diagnoses: The differential diagnosis associated with the presentation includes (As above) Admission/Observation Consideration of admission/observation: Escalation of care including admission/observation considered Consult Healthcare Provider Management of the patient was discussed with: Process Treater (General surgeon, Dr. Herrmann) Lab Data MDM Lab Attestation statement: I reviewed the patient's lab results. 02/08/25 21:25 02/08/25 21:25 Labs: Lab Results 02/08/25 02/08/25 Range/Units 21:25 22:54 WBC 13.0 H (4.8-10.8) X10*3/uL RBC 6.08 H D (4.60-5.80) X10*6/uL Hgb 18.0 D (14.0-18.0) g/dl Hct 50.9 (42.0-52.0) % MCV 83.7 (80.0-98.0) fL MCH 29.6 (27.0-33.0) pg MCHC 35.4 (31.0-36.0) g/dl RDW 13.9 (11.0-16.0) % Plt Count 242 (160-400) X10*3/uL MPV 10.7 (9.4-12.4) fL Immature Gran % (Auto) 0.3 (0.0-0.4) % Neut % (Auto) 81.9 H (45-73) % Lymph % (Auto) 11.3 L (20-40) % Toombs % (Auto) 5.4 (2-11) % Eos % (Auto) 0.8 (0-4) % Baso % (Auto) 0.3 (0-2) % Lymph # (Auto) 1.5 (1.2-4.9) X10*3/uL Toombs # (Auto) 0.7 (0.1-1.2) X10*3/uL Eos # (Auto) 0.1 (0.0-0.4) X10*3/uL Baso # (Auto) 0.0 (0.0-0.2) X10*3/uL Abs Immat Gran (auto) 0.04 H (0.00-0.03) X10*3/uL Absolute Neuts (auto) 10.7 H (2.0-8.3) x10*3/uL Absolute Nucleated RBC 0.000 (0.0-0.012) X10*3/uL Nucleated RBC % (auto) 0.0 (0.0-0.2) /100WBC Sodium 136 (135-145) mmol/L Potassium 4.1 (3.3-5.1) mmol/L Chloride 106 (96-108) mmol/L Carbon Dioxide 20 L (22-29) mmol/L Anion Gap 14 (12-20) BUN 14 (9-16) mg/dL Creatinine 0.96 (0.5-1.4) mg/dL Estim Creat Clear Calc 86.7 Estimated GFR > 60 Random Glucose 139 H (60-115) mg/dL Calcium 10.0 (8.4-10.2) mg/dL Magnesium 1.8 (1.6-2.6) mg/dL Total Bilirubin 1.0 (0.0-1.0) mg/dL AST 26 (5-37) U/L ALT 40 (0-40) U/L Alkaline Phosphatase 99 (39-117) U/L Total Protein 7.8 (6.5-8.0) g/dL Albumin 5.2 H (3.5-5.0) g/dL Lipase 45 (8-78) U/L Urine Color Dark Yellow Urine Appearance Clear Urine pH 5.5 (5.0-9.0) Ur Specific Humble >= 1.030 H (1.005-1.025) Urine Protein 100 (2+) H (Neg-Trace) mg/dL Urine Glucose (UA) Negative (Negative) mg/dL Urine Ketones 15 (Negative) mg/dL Urine Blood Trace H (Negative) Urine Nitrite Negative (Negative) Ur Leukocyte Esterase Negative (Negative) Urine RBC 11-20 H (0-2) /HPF Urine WBC 0-5 (0-5) /HPF Ur Squamous Epith Cells 6-10 (0-2) /HPF Urine Bacteria None Seen (None Seen) Hyaline Casts >20 (0-2) /LPF C. difficile Tox B Gene NEGATIVE (Negative) Radiology Impression Discussion of test interpretation with radiology: I have reviewed the radiologist's reading. Radiologist Impression: CT ABDOMEN AND PELVIS WITH CONTRAST COMPARISON: CT/SR - CT ABDOMEN PELVIS WITHOUT IV CONTRAST - 05/18/2024 04:26 PM EST FINDINGS: Small-bowel obstruction is present. A few dilated loops of mid small bowel are noted, for example seen deep to the right anterior abdominal wall and measuring 3.8 cm in caliber on axial image 392 of series 4. A somewhat gradual transition point is noted in the right aspect of the abdomen on axial image 443. Distal to this are few borderline distended loops of mid small bowel, for example measuring approximately 2.6 cm in caliber on axial image 449. Somewhat gradual transition is noted in the right aspect of the abdomen on axial images 450-482. Distal to this is a short segment of distended small bowel measuring 3.6 cm in caliber on axial image 517, with a transition point noted in the left aspect of the abdomen on axial image 545. No evidence of pneumatosis. No abscess or free air. Hernia mesh is again noted in association with the anterior abdominal wall. Fluid and some nonspecific air-fluid levels are noted within nondilated and nonobstructed loops of colon. Appendix is not definitively visualized. 3 mm nodule is again noted within the periphery of the left lower lobe on axial image 73. Mild atelectatic changes are noted in the lower lungs. Small amounts of portal venous gas are noted within the liver, for example seen in the left hepatic lobe on axial image 140. Another example is seen in the left hepatic lobe on axial image 159. No focal liver lesion. Gallbladder is unremarkable. No visible stone. Stomach is not optimally distended which limits assessment. No CT evidence of acute pancreatitis. Spleen is enlarged and measures 13.8 cm on coronal image 69. Thickening of the adrenal glands is again noted. Both kidneys are unremarkable. No hydronephrosis or obstructing stone. Urinary bladder is underdistended which limits assessment for wall thickening. Abdominal aorta is normal in caliber without evidence of an aneurysm or dissection. Origins of the celiac axis, superior mesenteric artery, renal arteries, and inferior mesenteric artery are patent. Splenic vein, superior mesenteric vein, and inferior mesenteric vein demonstrate no evidence of thrombosis. No evidence of portal venous thrombosis. No lymphadenopathy or loculated fluid collection. The bone windows demonstrate no acute abnormalities. IMPRESSION: 1. Multiple segments of dilated mid small bowel are noted, with associated transition points as detailed above. Imaging appearance suggests a small-bowel obstruction. There is no pneumatosis, abscess, or free air. 2. There is noted to be small amounts of portal venous gas within the liver. While portal venous gas is nonspecific, ischemic bowel will need to be excluded. 3. Surgical consultation is recommended to determine appropriate management. 4. Additional findings are detailed above. This document has been electronically signed by: Raymundo Banerjee M.D. on 02/09/2025 04:51:28 Dictated By: Raymundo Banerjee MD Signed By: <Electronically signed by Raymundo Banerjee MD in OV> 02/09/25 0452 Chronic Conditions Patient?s care impacted by: Diabetes and Hypertension Discharge Plan Discharge Clinical Impression: SBO (small bowel obstruction), Diarrhea Patient Disposition: Admitted As Inpatient Print Language: Polish
[2025-02-08 21:28] LABS: MANUAL DIFF FLAG NO
[2025-02-08 21:30] LABS: Hematocrit 50.9 % (42.0-52.0); Hemoglobin 18.0 g/dl (14.0-18.0); Imm Gran Abs Auto 0.04 X10*3/uL (0.00-0.03); Imm Gran Pct Auto 0.3 % (0.0-0.4); Lymphocytes Absolute Auto 1.5 X10*3/uL (1.2-4.9); Mean Corpuscular HGB Conc 35.4 g/dl (31.0-36.0); Mean Corpuscular Hemoglobin 29.6 pg (27.0-33.0); Mean Corpuscular Volume 83.7 fL (80.0-98.0); NRBC Abs Auto 0.000 X10*3/uL (0.0-0.012); NRBC Pct Auto 0.0 /100WBC (0.0-0.2); Platelet Count 242 X10*3/uL (160-400); Red Blood Count 6.08 X10*6/uL (4.60-5.80); White Blood Count 13.0 X10*3/uL (4.8-10.8)
--- OUTSIDE RECORDS SUMMARY | 2025-02-08 21:33 | XMS_ITS | Clinical Summary ---
Author Organization [facility] Address [address] [place] [phone] Phone Care Team Providers Care Associate Professor Of Mathematics Name Role Phone Shelli Kwan MD Primary [...] topic Medical Devices Not on file Insurance [facility] MEDICARE REPLACEMENT MEDICARE PART A & B [facility] C[facility] MEDICARE REPLACEMENT [place] [id number] MEDICARE PART A & B [facility] CARE MEDICARE REPLACEMENT MEDICARE PART A & B [facility] MEDICARE REPLACEMENT MEDICARE PART A & B [facility] MEDICARE REPLACEMENT MEDICARE PART A & B [facility] MEDICARE REPLACEMENT MEDICARE PART A & B Care Teams Associate Professor Of Mathematics Relationship Specialty Start Date End Date Shelli Kwan MD [address] [place] [address] PCP - General Internal Medicine 08/01/23 Additional Source Comments The information contained in this document represents components of the legal health record. It is not the complete legal health record.[facility]
--- OUTSIDE RECORDS SUMMARY | 2025-02-08 21:33 | XMS_ITS | Patient Health Record ---
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 Role Phone Shelli Moore MD Primary Care Provider Unavail able Juany Munson Unavailable [phone] Allergies Allergen (clinical drug ingredient) Drug/Non Drug [...] Duration) Notes Start Date End Date Status Dicyclomine HCl 20 MG 1 tablet Orally Th ree times a day Active Dexilant 60 MG 1 capsule Orally Onc e a day Active Proctosol HC 2.5 % 1 application Char Belt Operator ally Twice a day Active Escitalopram Oxalate 10 MG 1 tablet Orally Once a day Active metFORMIN HCl 500 MG 1 tablet with a ml l Orally Once a day Not-Taking Mesalamine 1.2 GM 2 tablets with a lm l Orally Once a day Active oxyBUTYnin Active Montelukast Sodium 10 MG 1 tablet Orally Once a day Active Propranolol HCl 80 MG 1 tablet Orally Tw ice a day Active Jardiance Not-Taking Clotrimazole-Betamethaso ne 1-0.05 % 1 application Externally Twice a day Not-Taking Gas Relief Extra Strength 125 MG Oral; Duration: 30 Days A ctive Extra Depth Orthopedic Shoes (1 Pair) with Customized Heat Molded Multidensity Innersoles (3 Pair) as directed Dx: NIDDM/Polyneuropathy (E11.42), Hammertoe Foot Deformity (M20.41,M20.42), Preulcerative Skin Lesion(s) (L85.1 09/01/2024 Active Albuterol Sulfate 108 (90 Base) MCG/ACT 1 puff as needed Inhalation every 4 hrs Active Ciclopirox Olamine 0.77 % 1 application Externally Twice a day; Duration: 30 days Active Incruse Ellipta 62.5 MCG/ACT 1 puff Inhalation Once a day Active buPROPion HCl ER (XL) 300 MG 1 tablet in the morning Orally Once a day Active Bisacodyl 5 MG 1 tablet as needed Orally Once a day PRN Not-Taking Atorvastatin Calcium 20 MG 1 tablet Orally Once a day; Duration: 30 day(s) Active Tadalafil 20 MG 1 tablet as needed Orally Once a day PRN Active Xarelto Active Meloxicam 7.5 MG 1 tablet Orally Once a day; Duration: 30 day(s) PRN Active Trulicity 1.5 MG/0.5ML as directed Subcutaneous Active Blood Thinners Activ e clonazePAM 1 MG 1 tablet Orally Once a day Active Immunizations Vaccine Route Administration Date Status Comme nts Influenza Unknown 06/09/2023 Administered Influenza Unknown 05/30/2024 Administered Social History Tobacco Use: Social History [...] Problem Acquired hammer toe of right foot (3829969204150792 ) Other hammer toe(s) (acquired), right foot (M20.41) Active confirmed Problem Acquired hammer toe of left foot ([id number] ) Other hammer toe(s) (acquired), left foot (M20.42) Active confirmed Problem Plantar wart of left foot (0253845699743062 2) Plantar wart (B07.0) Active confirmed Problem Polyneuropathy due to diabetes mellitus (87695097) Type 2 diabetes mellitus with polyneuropathy (E11.42) Active confirmed Vital Signs Blood pressure diastolic 70 mm Hg 01/21/2025 Height 5ft9in in 01/21/2025 Blood pressure systolic 119 mm Hg 01/21/2025 Weight 204 lbs 01/21/2025 BMI 30.12 kg/m2 01/21/2025 Encounters Encounter Location Date Provider Diagnosis [facility] [address] [place] [address] 04/01/2024 Juany Perica Tinea pedis of both feet B35.3 ; Tinea unguium B35.1 ; Type 2 diabetes mellitus with polyneuropathy E11.42 ; Plantar wart B07.0 and Pain in left foot M79.[address] [address] 06/15/2024 Juany Perica Tinea pedis of both feet B35.3 ; Tinea unguium B35.1 ; Type 2 diabetes mellitus with polyneuropathy E11.42 ; Plantar wart B07.0 and Pain in left foot M79.[address] [address] 09/01/2024 Juany Perica Tinea pedis of both feet B35.3 ; Other hammer toe(s) (acquired), right foot M20.41 ; Tinea unguium B35.1 ; Type 2 diabetes mellitus with polyneuropathy E11.42 ; Plantar wart B07.0 ; Pain in left foot M79.672 and Other hammer toe(s) (acquired), left foot M20.[address] [address] 01/21/2025 Juany Perica Pain in left foot M79.672 ; Type 2 diabetes mellitus with polyneuropathy E11.42 ; Tinea unguium B35.1 and Plantar wart B07.0 [facility] [address] [address] 11/17/2024 Juany Munson Assessments Encounter Date Diagnosis [...] pedis of both feet (ICD-10 - B35.3) 01/21/2025 Pain in left foot (ICD-10 - M79.672) 01/21/2025 Type 2 diabetes mellitus with polyneuropathy (ICD-10 - E11.42) 01/21/2025 Tinea unguium (ICD-10 - B35.1) 09/01/2024 Tinea unguium (ICD-10 - B35.1) 06/15/2024 Type 2 diabetes mellitus with polyneuropathy (ICD-10 - E11.42) 04/01/2024 Tinea unguium (ICD-10 - B35.1) 04/01/2024 Type 2 diabetes mellitus with polyneuropathy (ICD-10 - E11.42) 06/15/2024 Plantar wart (ICD-10 - B07.0) 01/21/2025 Plantar wart (ICD-10 - B07.0) 09/01/2024 Type 2 diabetes mellitus with polyneuropathy (ICD-10 - E11.42) 06/15/2024 Pain in left foot (ICD-10 - M79.672) 09/01/2024 Plantar wart (ICD-10 - B07.0) 04/01/2024 Plantar wart (ICD-10 - B07.0) 04/01/2024 Pain in left foot (ICD-10 - M79.672) 09/01/2024 Pain in left foot (ICD-10 - M79.672) 09/01/2024 Other hammer toe(s) (acquired), left foot (ICD-10 - M20.42) Plan Of Treatment Next Appt Details Provider Name:Juany Mary luna, 04/12/2025 10:00:00 AM, [address] [place] [address], [phone], Insurance Providers Payer Name Payer Address Payer Phone Subscriber Number Group Number Insured Name Patient Relationship to Insured Coverage Start Date Coverage End Date [facility] [employer] Claims [address] [employer] [employer] [id number] Kali Munoz Self - patient is the insured Medical (General) History Medical History History ICD Code Anxiety Back,Hip,and Knee pain covid-19 Depression Diabetic Headaches/Migraines Hepatitis Hiatal hernia Lung disease Psychiatric disorder Reflux ( GERD) sinusitis COPD Colitis Chicken pox Cholesterol Surgical History Surgery Date(Month/Year) cervical (spine?) surgery 2017 hernia [phone] peritonitis 2019 hernia 10/22
--- OUTSIDE RECORDS SUMMARY | 2025-02-08 21:33 | XMS_ITS | Encounter Summary ---
Author Organization [employer] Address [address] [facility] [address] [place] [address] Care Team Providers Care Flash Developer Name Role Phone Unavailable Primary Care Provider Unavailabl e Encounter Details Date Type Department Care Team (Late Contact Info) Description 10/08/2022 Abstract [facility] [address] [place] [address] Raymundo, Erum [address] [place] [address] Social History Tobacco Use Types Packs/Day Years [...] Description 04/29/2025 2:00 PM EDT Office Visit [facility] [address] [place] [address] Saniya Veliz, OD [address] [place] [address] documented as of this encounter Visit Diagnoses Not on filedocumented in this encounter
[2025-02-08 21:44] LABS: Alanine Aminotransferase 40 U/L (0-40); Albumin Level 5.2 g/dL (3.5-5.0); Alkaline Phosphatase 99 U/L (39-117); Anion Gap 14 (12-20); Aspartate Amino Transferase 26 U/L (5-37); Blood Urea Nitrogen 14 mg/dL (9-16); Calcium 10.0 mg/dL (8.4-10.2); Carbon Dioxide 20 mmol/L (22-29); Chloride 106 mmol/L (96-108); Creatinine Clr Calc Pharmacy 86.7; Estimated Glomerular Filt Rate > 60; Lipase 45 U/L (8-78); Magnesium 1.8 mg/dL (1.6-2.6); Potassium 4.1 mmol/L (3.3-5.1); Sodium 136 mmol/L (135-145); Total Protein 7.8 g/dL (6.5-8.0)
[2025-02-08 23:02] LABS: Appearance Urine Clear; Glucose Urine UA Negative (Negative); PH 5.5 (5.0-9.0); Specific Gravity - Urine >= 1.030 (1.005-1.025); UMIC TRIGGER UA YES
[2025-02-08 23:46] LABS: CDiff Gene PCR NEGATIVE (Negative)
[2025-02-08 23:54] VITALS: BP 122/93; PULSE 90; RESP 16; TEMP 36.4; O2SAT 97
[2025-02-08] MEDS: Lactated Ringers 1,000 ML 999 ML IV (23:59)
[2025-02-09] VITALS (8 sets, daily range): BP systolic 115–136; BP diastolic 71–83; PULSE 73–89; RESP 16–20; TEMP 36.4–37.1; O2SAT 93–99; BMI 30.3
[2025-02-09] MEDS: iohexoL 350 MG/ML 100 ML INFUS..BTL 85 ML IV (03:24)
[2025-02-09] MEDS: 0.9 % Sodium Chloride Flush 3 ML SYRINGE IVFLUSH (07:43)
--- NOTE | 2025-02-09 07:55 | PM.HPGS ---
History of Present Illness History of Present Illness Date of Service: 02/10/25 Chief complaint: abdo pain, vomiting Narrative: Kali Nicholas is a 64 year old male in the ER because of severe diarrhea. He says this started about 430 yesterday morning. He said that he woke up in bed with some watery stools. He said that he had multiple episodes of watery diarrhea all day yesterday. He also started to be come bloated abdominal distention later in the day. He had minimal pain. He said he had 1 episode of vomiting while he was an route to the ER last night He currently feels much better and denies significant pain. He has had no diarrhea in a few hours now. He has multiple medical problems including diabetes, hyperlipidemia, anxiety, BPH, depression, tremors, GERD, COPD and a remote history of ulcerative colitis. He had a laparotomy for diverticulitis in [place] in 2008. He has had multiple hernia repairs. Review of Systems Constitutional: Constitutional: Denies chills and Denies fever(s) Cardiovascular: Cardiovascular: Denies chest pain, Denies dyspnea and Denies dyspnea on exertion Respiratory: Respiratory: Denies cough, Denies dyspnea and Denies dyspnea on exertion Gastrointestinal: Gastrointestinal: Denies hematochezia, Denies change in bowel habits and Reports diarrhea Genitourinary: Genitourinary: Denies hematuria and Denies difficulty urinating Musculoskeletal: Musculoskeletal: Reports back pain and Denies limited range of motion Neurologic: Denies focal weakness and Denies convulsions Psychiatric: Psychiatric: Reports depression and Denies mood swings PMFSH Past Medical History Medical History Physical exam Incisional hernia (10/12/24) Hepatitis Seasonal allergies Cough Hx of influenza Congestion of nasal sinus Type 2 diabetes mellitus OAB (overactive bladder) Hyperlipidemia LDL goal <70 Abdominal wall hernia Personal history of nicotine dependence History of COVID-19 Obesity (BMI 30-39.9) Insomnia COPD (chronic obstructive pulmonary disease) Allergic rhinitis Ulcerative colitis Family History Family History Father Diabetes HTN (hypertension) Heart attack Mother Skin cancer HTN (hypertension) Diabetes Paternal Aunt Heart attack Sister Skin cancer Surgical History Surgical History Umbilical hernia Hx of tonsillectomy History of incisional hernia repair History of cervical spinal surgery History of colonoscopy History of appendectomy (~2008) History of esophagogastroduodenoscopy (EGD) Social History Social History Household Members: Spouse Housing: Condominium Are you a primary technical healthcare consultant to a significant other at home: No Do you presently have visiting nurse or other home services: Yes Alcohol intake: never Patient Tobacco Use Status: Former Tobacco user Tobacco use type: Cigarette Years Smoked: (former smoker - onset 15yo, 1ppd x 36yrs, 35pyh, quit 2011) e-Cigarette/Vaping Use: Never Used Second Hand Smoke Exposure: No Substance Use Type: Marijuana service: No Current occupational status: retired Cognitive needs: No Hearing needs: No Vision needs: No Meds Allergies Allergy/AdvReac Type Severity Reaction Status Date / Time Penicillins (PENICILLINS) Allergy Unknown ANAPHYLAXIS Verified 02/08/25 21:00 Active Medications: Current Medications Sodium Chloride (Ns) 1,000 mls @ 150 mls/hr IVCONT .Q6H40M [facility] Last Admin: 02/09/25 07:44 Dose: 150 mls/hr Ondansetron HCl (Ondansetron Hcl 4 Mg/2 Ml Vial) 4 mg IVPUSH RQ4H PRN PRN Reason: Nausea and Vomiting Sodium Chloride (0.9 % Sodium Chloride Flush 3 Ml Syringe) 3 ml IVFLUSH QSHIFT [facility] Last Admin: 02/09/25 07:43 Dose: 3 ml Home Medications ?Medication ?Instructions ?Recorded ?Confirmed ?Last Taken ?Type escitalopram oxalate 10 mg tablet 10 mg PO DAILY 01/18/21 02/09/25 02/07/25 History (Lexapro) [id number] 300 mcg-K 60 1 tab PO DAILY 01/18/21 02/09/25 02/07/25 History mcg-lycop 600 mcg-lutein 300 mcg tablet (Centrum Silver Men) propranolol 80 mg capsule,24 80 mg PO BID 08/13/21 02/09/25 02/07/25 History hr,extended release triamcinolone acetonide 0.1 % 1 appl topical TID PRN Red/Itchy 08/13/21 02/09/25 Unknown History topical cream Skin albuterol sulfate 2.5 mg/3 mL 2.5 mg inhalation Q6H PRN 05/16/22 02/09/25 Unknown History (0.083 %) solution for nebulization Shortness Of Breath Or Wheezing bupropion HCl 150 mg 24 hr tablet, 150 mg PO DAILY 01/27/24 02/09/25 02/07/25 History extended release rivaroxaban 20 mg tablet (Xarelto) 20 mg PO DAILY 01/27/24 02/09/25 02/07/25 History polyvinyl alcohol 1.4 % eye drops 1 drp ophthalmic (eye) QID PRN Dry 12/02/24 02/09/25 Unknown History (Artificial Tears (polyvinyl Eye(S) alcohol)) sumatriptan succinate 50 mg tablet 50 mg PO DAILY PRN Migraine 12/02/24 02/09/25 Unknown History Headache clonazepam 0.5 mg tablet 0.5 mg PO DAILY 02/09/25 02/09/25 02/07/25 History clonazepam 0.5 mg tablet 1 mg PO BEDTIME 02/09/25 02/09/25 02/07/25 History clotrimazole-betamethasone 1 1 appl topical BID PRN 02/09/25 02/09/25 Unknown History %-0.05 % topical cream Inflamed/Itchy Skin dicyclomine 20 mg tablet 20 mg PO BID PRN Abdominal 02/09/25 02/09/25 Unknown History Discomfort docusate sodium 100 mg capsule 100 mg PO BID PRN Constipation 02/09/25 02/09/25 Unknown History (Colace) dulaglutide 1.5 mg/0.5 mL 1.5 mg subcut BEEBE 02/09/25 02/09/25 02/06/25 History subcutaneous pen injector (Trulicity) fluticasone propionate 50 2 spray intranasal DAILY PRN for 02/09/25 02/09/25 Unknown History mcg/actuation nasal allergic rhinitis spray,suspension mesalamine 1.2 gram tablet,delayed 2.4 g PO DAILY PRN Inflammatory 02/09/25 02/09/25 Unknown History release Bowel Disease Physical Exam Vital Signs: Vital Signs: Last Vital Signs Temp 97.5 F 02/09/25 06:13 Pulse 78 02/09/25 06:13 Resp 20 02/09/25 06:13 BP 117/74 02/09/25 06:13 Pulse Ox 98 02/09/25 06:13 O2 Del Method Room Air 02/09/25 06:13 BMI result Body Mass Index 29.7 Const: General: comfortable and no acute distress Orientation/consciousness: patient oriented x3 Neck: Neck: Yes no lymphadenopathy Resp: Auscultation: clear to auscultation bilaterally Cardio: Rhythm: regular rhythm GI: Palpation (GI): Soft to palpation, nontender and no guarding Neuro: General: patient oriented x3 Results Results Labs: Short CBC 02/08/25 Range/Units 21:25 WBC 13.0 H (4.8-10.8) X10*3/uL Hgb 18.0 D (14.0-18.0) g/dl Hct 50.9 (42.0-52.0) % Plt Count 242 (160-400) X10*3/uL BMP 02/08/25 21:25 Sodium 136 Potassium 4.1 Chloride 106 Carbon Dioxide 20 L BUN 14 Creatinine 0.96 Calcium 10.0 Liver Function 02/08/25 Range/Units 21:25 Total Bilirubin 1.0 (0.0-1.0) mg/dL AST 26 (5-37) U/L ALT 40 (0-40) U/L Alkaline Phosphatase 99 (39-117) U/L Albumin 5.2 H (3.5-5.0) g/dL Urine 02/08/25 Range/Units 22:54 Urine Color Dark Yellow Urine Appearance Clear Urine pH 5.5 (5.0-9.0) Ur Specific [place] >= 1.030 H (1.005-1.025) Urine Protein 100 (2+) H (Neg-Trace) mg/dL Urine Glucose (UA) Negative (Negative) mg/dL Additional studies: IMPRESSION: 1. Multiple segments of dilated mid small bowel are noted, with associated transition points as detailed above. Imaging appearance suggests a small-bowel obstruction. There is no pneumatosis, abscess, or free air. 2. There is noted to be small amounts of portal venous gas within the liver. While portal venous gas is nonspecific, ischemic bowel will need to be excluded. 3. Surgical consultation is recommended to determine appropriate management. Assessment and Plan (1) SBO (small bowel obstruction): Status: Acute 64 year male with multiple episodes of diarrhea yesterday, and abdominal distention. He had a CAT scan suggestive of partial small-bowel obstruction with multiple tapering narrowed loops of small bowel. This is likely from postop adhesions from his previous laparotomy in [place] many years ago. He had an NG tube placed earlier this morning. He currently feels much better. He denies any abdominal pain. His abdominal exam is benign. He has no significant tenderness. His abdomen is very soft . He actually looks well overall. We will keep his NG tube in for now and monitor the output He will be on IV fluids. I explained to him the plan as above. Quality Stroke Does the patient have a stroke diagnosis?: No VTE Prior VTE?: No VTE Risk Level:: Surgical - low VTE Device Contraindication: N/A - Device Ordered VTE Drug Contraindication: N/A - Med Ordered Procedures Date of Service Date of Service: 02/10/25
[2025-02-09 09:36] LABS: E. coli EAEC Not Detected (Not Detect.); E. coli EPEC Not Detected (Not Detect.); E. coli ETEC Not Detected (Not Detect.); E. coli STEC Not Detected (Not Detect.); Shigella sp./EIEC Not Detected (Not Detect.)
--- NOTE | 2025-02-09 10:06 | PC.NURSE ---
pt tolerating NG tube well - about 300ml in drainage container. medium thin brown liquid. IV infusing mtn fluids now at 150ml/hr. abd soft, non-tender, non-distended
--- NOTE | 2025-02-09 10:45 | MHC.CM.PN ---
CM met with Patient at bedside, in the ED, and addressed IMM with him, providing Patient with the original and a copy will be placed on the chart. Patient lives in an apartment with his and he receives a [employer] 4.5 hours/week.Home/resume said services is the goal and CM has initiate and will follow for dc planning. PCP is Dr. Shelli Mendez and Patient will need assist with transport at time of dc.
--- NOTE | 2025-02-09 11:23 | PHA.MEDREC ---
Addendum entered by Geovani Cunningham, PharmD 02/09/25 12:19: med rec checked by [facility] Original Note: Pharmacy Consult ? Medication Reconciliation Pharmacy has completed the medication reconciliation. Spoke with pt, utilizing lang interpreter services (Maggy Hunter), and he was able to confirm his medications. Pt confirmed his Trulicity once a week on Sundays (pt confirmed he took it Sun 02/06).
--- NOTE | 2025-02-09 11:24 | PM.IMCN ---
History of Present Illness Data of Consult Service Date: 02/09/25 Requesting physician: Joey Talbert Primary Care Provider: Shelli Bartlett MD HPI Reason for consult: Diabetes, COPD This is a 64-year-old male with multiple medical issues who presented to the emergency department with diarrhea and abdominal distention found to have small-bowel obstruction. Patient had NG tube placed and was admitted to the surgical service. The hospitalists were asked to see him in consultation to assist in managing chronic medical comorbidities. Patient denies chest pain, shortness of breath, cough. Reports sore throat due to NG tube. Review of Systems Review of Systems: Yes all other systems are reviewed and are negative Constitutional: Constitutional: Denies chills and Denies fever(s) Cardiovascular: Cardiovascular: Denies chest pain, Denies palpitations and Denies dyspnea Respiratory: Respiratory: Denies cough and Denies dyspnea Endocrine: Endocrine: Denies palpitations PMFSH Medical History Physical exam Incisional hernia (10/12/24) Hepatitis Seasonal allergies Cough Hx of influenza Congestion of nasal sinus Type 2 diabetes mellitus OAB (overactive bladder) Hyperlipidemia LDL goal <70 Abdominal wall hernia Personal history of nicotine dependence History of COVID-19 Obesity (BMI 30-39.9) Insomnia COPD (chronic obstructive pulmonary disease) Allergic rhinitis Ulcerative colitis Family History Father Diabetes HTN (hypertension) Heart attack Mother Skin cancer HTN (hypertension) Diabetes Paternal Aunt Heart attack Sister Skin cancer Surgical History Umbilical hernia Hx of tonsillectomy History of incisional hernia repair History of cervical spinal surgery History of colonoscopy History of appendectomy (~2008) History of esophagogastroduodenoscopy (EGD) Social History Household Members: Spouse Housing: Apartment Are you a primary care trainer to a significant other at home: No Do you presently have visiting nurse or other home services: No Alcohol intake: never Patient Tobacco Use Status: Former Tobacco user Tobacco use type: Cigarette Years Smoked: (former smoker - onset 15yo, 1ppd x 36yrs, 35pyh, quit 2011) e-Cigarette/Vaping Use: Never Used Second Hand Smoke Exposure: No Use of substances other than those prescribed or required for medical reasons: Yes Substance Use Type: Marijuana Advance Directives: No Advance Directives Information Provided: No service: No Current occupational status: retired Cognitive needs: No Hearing needs: No Vision needs: No Meds Allergies Allergy/AdvReac Type Severity Reaction Status Date / Time Penicillins (PENICILLINS) Allergy Unknown ANAPHYLAXIS Verified 02/08/25 21:00 Active Medications: Current Medications Sodium Chloride (Ns) 1,000 mls @ 150 mls/hr IVCONT .Q6H40M [facility] Last Admin: 02/09/25 07:44 Dose: 150 mls/hr Ondansetron HCl (Ondansetron Hcl 4 Mg/2 Ml Vial) 4 mg IVPUSH RQ4H PRN PRN Reason: Nausea and Vomiting Sodium Chloride (0.9 % Sodium Chloride Flush 3 Ml Syringe) 3 ml IVFLUSH QSHIFT [facility] Last Admin: 02/09/25 07:43 Dose: 3 ml Home Medications ?Medication ?Instructions ?Recorded ?Confirmed ?Last Taken ?Type escitalopram oxalate 10 mg tablet 10 mg PO DAILY 01/18/21 02/09/25 02/07/25 History (Lexapro) [id number] 300 mcg-K 60 1 tab PO DAILY 01/18/21 02/09/25 02/07/25 History mcg-lycop 600 mcg-lutein 300 mcg tablet (Centrum Silver Men) propranolol 80 mg capsule,24 80 mg PO BID 08/13/21 02/09/25 02/07/25 History hr,extended release triamcinolone acetonide 0.1 % 1 appl topical TID PRN Red/Itchy 08/13/21 02/09/25 Unknown History topical cream Skin albuterol sulfate 2.5 mg/3 mL 2.5 mg inhalation Q6H PRN 05/16/22 02/09/25 Unknown History (0.083 %) solution for nebulization Shortness Of Breath Or Wheezing bupropion HCl 150 mg 24 hr tablet, 150 mg PO DAILY 01/27/24 02/09/25 02/07/25 History extended release rivaroxaban 20 mg tablet (Xarelto) 20 mg PO DAILY 01/27/24 02/09/25 02/07/25 History polyvinyl alcohol 1.4 % eye drops 1 drp ophthalmic (eye) QID PRN Dry 12/02/24 02/09/25 Unknown History (Artificial Tears (polyvinyl Eye(S) alcohol)) sumatriptan succinate 50 mg tablet 50 mg PO DAILY PRN Migraine 12/02/24 02/09/25 Unknown History Headache clonazepam 0.5 mg tablet 0.5 mg PO DAILY 02/09/25 02/09/25 02/07/25 History clonazepam 0.5 mg tablet 1 mg PO BEDTIME 02/09/25 02/09/25 02/07/25 History clotrimazole-betamethasone 1 1 appl topical BID PRN 02/09/25 02/09/25 Unknown History %-0.05 % topical cream Inflamed/Itchy Skin dicyclomine 20 mg tablet 20 mg PO BID PRN Abdominal 02/09/25 02/09/25 Unknown History Discomfort docusate sodium 100 mg capsule 100 mg PO BID PRN Constipation 02/09/25 02/09/25 Unknown History (Colace) dulaglutide 1.5 mg/0.5 mL 1.5 mg subcut BEEBE 02/09/25 02/09/25 02/06/25 History subcutaneous pen injector (Trulicity) fluticasone propionate 50 2 spray intranasal DAILY PRN for 02/09/25 02/09/25 Unknown History mcg/actuation nasal allergic rhinitis spray,suspension mesalamine 1.2 gram tablet,delayed 2.4 g PO DAILY PRN Inflammatory 02/09/25 02/09/25 Unknown History release Bowel Disease Physical Exam Vital Signs and Narrative: Vital Signs: Last Vital Signs Temp 97.6 F 02/09/25 08:06 Pulse 81 02/09/25 08:06 Resp 18 02/09/25 08:06 BP 118/74 02/09/25 08:06 Pulse Ox 99 02/09/25 08:06 O2 Del Method Room Air 02/09/25 08:06 BMI result Body Mass Index 29.7 Const: General: cooperative, alert and awake Nutritional Appearance: average body habitus Orientation/consciousness: patient oriented x3 HEENT: Other: NGT in place Resp: Effort & Inspection: normal respiratory effort, able to speak in complete sentences, no respiratory distress and no use of accessory muscles Cardio: Rate: regular rate GI: Other: no guarding no rebound Palpation (GI): Soft to palpation Neuro: General: patient oriented x3, moves all extremities and CN's II-XI intact bilaterally Results Labs 02/08/25 21:25 02/08/25 21:25 Labs: Laboratory Results - last 24 hr 02/08/25 02/08/25 02/09/25 21:25 22:54 05:16 MCV 83.7 MCH 29.6 MCHC 35.4 RDW 13.9 Plt Count 242 MPV 10.7 Immature Gran % (Auto) 0.3 Neut % (Auto) 81.9 H Lymph % (Auto) 11.3 L [place] % (Auto) 5.4 Eos % (Auto) 0.8 Baso % (Auto) 0.3 Lymph # (Auto) 1.5 [place] # (Auto) 0.7 Eos # (Auto) 0.1 Baso # (Auto) 0.0 Abs Immat Gran (auto) 0.04 H Absolute Neuts (auto) 10.7 H Absolute Nucleated RBC 0.000 Nucleated RBC % (auto) 0.0 Anion Gap 14 Estim Creat Clear Calc 86.7 Estimated GFR > 60 Random Glucose 139 H Lactic Acid 0.9 Calcium 10.0 Magnesium 1.8 Total Bilirubin 1.0 AST 26 ALT 40 Alkaline Phosphatase 99 Total Protein 7.8 Albumin 5.2 H Lipase 45 Urine Color Dark Yellow Urine Appearance Clear Urine pH 5.5 Ur Specific [place] >= 1.030 H Urine Protein 100 (2+) H Urine Glucose (UA) Negative Urine Ketones 15 Urine Blood Trace H Urine Nitrite Negative Ur Leukocyte Esterase Negative Urine RBC 11-20 H Urine WBC 0-5 Ur Squamous Epith Cells 6-10 Urine Bacteria None Seen Hyaline Casts >20 Stl C. cayetanensis PCR Not Detected Stool Rotavirus A PCR Not Detected Stl Adenov F 40/41 PCR Not Detected Stool Astrovirus (PCR) Not Detected Stool Campylobacter PCR Not Detected Stool Cryptosporidium PCR Not Detected Stl Sh Tox Pr E STEC PCR Not Detected Stool E coli O157 PCR Not applicable Stl Enterotoxigenic E PCR Not Detected Stool EPEC (PCR) Not Detected Stool EAEC (PCR) Not Detected Stl E. histolytica PCR Not Detected Stool Giardia Lamblia PCR Not Detected Stl P. shigelloides PCR Not Detected Stool Salmonella PCR Not Detected Stool Sapovirus (PCR) Not Detected Stl Shigella/EIEC PCR Not Detected St Y.enterocolitica PCR Not Detected Stool Vibrio (PCR) Not Detected Stl Vibrio cholerae PCR Not Detected Stl Norovirus GI/GII PCR Not Detected C. difficile Tox B Gene NEGATIVE Assessment and Plan (1) Controlled type 2 diabetes mellitus: Status: Acute Plan This is a 64-year-old male with history of COPD, ulcerative colitis, diabetes, hyperlipidemia, multiple bowl intra-abdominal surgeries who presents to the emergency department with diarrhea and abdominal distention found to have small-bowel obstruction and admitted to the surgical service Small-bowel obstruction Management as per surgical team will hold all non essential oral medications until tolerating regular diet T2DM hold Trulicity Follow q.6 hour POCs while NPO COPD No acute exacerbation Continue baseline inhalers Mood Continue baseline meds Hypertension On propranolol for hypertension and migraine BP on soft side, will hold for now HLD Hold statin until tolerating regular diet h/o UC Dicyclomine, mesalamine as listed as p.r.n., will hold for now on xarelto to prevent blood clots per patient due to history of bad blood flow ?due to PVD or vericose veins denies afib or history of DVT or PE hold xarelto for now, resume when safe from surgical perspective overactive bladder continue oxybutynin DVT prophylaxis- as per surgical team. will hold xarelto for now in case pt requires surgical intervention Thank you for allowing us to participate in the care of this patient. We will follow along with you
--- NOTE | 2025-02-09 11:58 | PC.NURSE ---
pt reporting headache and abd pain. reached out to MD for PRN pain medication orders as there aren't any in chart.
--- NOTE | 2025-02-09 13:13 | PC.NURSE ---
pt is very anxious and getting worked up. per PJ reyna, OK to give unscheduled AM dose of clonazepam. pt did not ave it this AM. 0.5mg admin unscheduled. checked with Dr. Talbert - turning suction OFF on NG tube at this time so pt can take a PO medication
[2025-02-09 13:15] LABS: Glucose, Whole Blood 136 mg/dL (60-115)
[2025-02-09] MEDS: Throat Spray, Medicated 177 ML BOTTLE 1 SPRAY MUCOUS MEM ×3 (13:25→22:47)
--- NOTE | 2025-02-09 16:43 | PM.EVENT ---
Event Note Date of Service: 02/09/25 Event Note: Seen on afternoon rounds Currently says he is comfortable Main complaint is his headache and pain from the NG tube on his nose Abdomen is soft and benign, not distended No more diarrhea Denies flatus NG tube in place Keep NG tube for now Re-evaluate tomorrow Recheck electrolytes Looks well overall Time Spent With Patient Time: Total time managing care of this patient today ____ minutes.
[2025-02-09 18:15] LABS: Glucose, Whole Blood 101 mg/dL (60-115)
[2025-02-09 20:58] LABS: Glucose, Whole Blood 95 mg/dL (60-115)
[2025-02-09 22:52] LABS: Glucose, Whole Blood 105 mg/dL (60-115)
[2025-02-10 03:09] VITALS: BP 126/74; PULSE 82; RESP 16; TEMP 36.4; O2SAT 95
[2025-02-10] MEDS: Throat Spray, Medicated 177 ML BOTTLE 1 SPRAY MUCOUS MEM ×2 (03:17→05:57)
[2025-02-10 04:46] LABS: Glucose, Whole Blood 97 mg/dL (60-115)
[2025-02-10 06:07] LABS: Glucose, Whole Blood 103 mg/dL (60-115)
[2025-02-10 06:13] LABS: MANUAL DIFF FLAG NO
[2025-02-10 06:42] LABS: Anion Gap 12 (12-20); Blood Urea Nitrogen 13 mg/dL (9-16); Calcium 8.0 mg/dL (8.4-10.2); Carbon Dioxide 22 mmol/L (22-29); Chloride 109 mmol/L (96-108); Creatinine Clr Calc Pharmacy 100.1; Estimated Glomerular Filt Rate > 60; Potassium 3.3 mmol/L (3.3-5.1); Sodium 140 mmol/L (135-145)
[2025-02-10 07:10] LABS: Hematocrit 40.3 % (42.0-52.0); Imm Gran Abs Auto 0.01 X10*3/uL (0.00-0.03); Imm Gran Pct Auto 0.2 % (0.0-0.4); Lymphocytes Absolute Auto 1.1 X10*3/uL (1.2-4.9); Mean Corpuscular HGB Conc 35.2 g/dl (31.0-36.0); Mean Corpuscular Hemoglobin 30.1 pg (27.0-33.0); Mean Corpuscular Volume 85.4 fL (80.0-98.0); NRBC Abs Auto 0.000 X10*3/uL (0.0-0.012); NRBC Pct Auto 0.0 /100WBC (0.0-0.2); Platelet Count 123 X10*3/uL (160-400); Red Blood Count 4.72 X10*6/uL (4.60-5.80); White Blood Count 6.5 X10*3/uL (4.8-10.8)
[2025-02-10 07:12] LABS: Hemoglobin 14.2 g/dl (14.0-18.0)
[2025-02-10 07:32] LABS: Glucose, Whole Blood 103 mg/dL (60-115)
[2025-02-10 07:39] VITALS: BP 129/76; PULSE 88; RESP 18; TEMP 36.9; O2SAT 95
[2025-02-10] MEDS: Tiotropium Bromide 2.5 mcg 1 PUFF/2.5 MCG MIST.INHAL 2 PUFF INHALE (07:58)
[2025-02-10 08:00] VITALS: PULSE 94; RESP 16; O2SAT 95
[2025-02-10] MEDS: oxyBUTYnin chloride ER 5 MG TAB.ER.24 10 MG PO (08:14)
[2025-02-10] MEDS: buPROPion HCl XL 150 MG TAB.ER.24H PO (08:14)
[2025-02-10] MEDS: 0.9 % Sodium Chloride Flush 3 ML SYRINGE IVFLUSH (08:14)
--- NOTE | 2025-02-10 09:55 | PM.PNGS ---
Subjective Subjective Date of Service: 02/10/25 Interval history: Feels well Denies abdominal pain Passing flatus No events overnight Physical Exam Vital Signs: Vital Signs: Last Vital Signs Temp 98.4 F 02/10/25 07:39 Pulse 94 02/10/25 08:00 Resp 16 02/10/25 08:00 BP 129/76 02/10/25 07:39 Pulse Ox 95 02/10/25 07:39 O2 Del Method Room Air 02/10/25 07:39 BMI result Body Mass Index 30.3 Const: General: comfortable and no acute distress Resp: Effort & Inspection: normal respiratory effort Cardio: Rate: regular rate GI: Palpation (GI): Soft to palpation, not firm, nontender and no guarding Objective Data Active Medications Acetaminophen (Acetaminophen 325 Mg Tablet) 650 mg PO Q6H PRN PRN Reason: Headache/Pain, Scale 1-10 Albuterol Sulfate (Albuterol Sulfate (0.083%) 2.5 Mg/3 Ml Vial.Neb) 2.5 mg INHALE Q6H PRN PRN Reason: Shortness Of Breath Or Wheezing Benzocaine (Throat Lozenge, Medicated Lozenge) 1 lozenge MUCOUS MEM Q2H PRN PRN Reason: Sore Throat Bupropion HCl (Bupropion Hcl Xl 150 Mg Tab.Er.24h) 150 mg PO DAILY [facility] Last Admin: 02/10/25 08:14 Dose: 150 mg Documented By: CAITLYN Clonazepam (Clonazepam 1 Mg Tablet) 1 mg PO BEDTIME [facility] Last Admin: 02/09/25 22:35 Dose: 1 mg Documented By: NATO Clonazepam (Clonazepam 0.5 Mg Tablet) 0.5 mg PO DAILY [facility] Last Admin: 02/10/25 08:14 Dose: 0.5 mg Documented By: CAITLYN Dextrose (Dextrose 50 % 25 Gm/50 Ml Syringe) 25 gm IVPUSH Q15M PRN; Protocol PRN Reason: per Hypoglycemia Standing Ord. Escitalopram Oxalate (Escitalopram Oxalate 10 Mg Tablet) 10 mg PO DAILY [facility] Last Admin: 02/10/25 08:14 Dose: 10 mg Documented By: CAITLYN Glucose (Glucose Gel 15 Gm Gel..Gram.) 15 gm PO Q15M PRN; Protocol PRN Reason: per Hypoglycemia Standing Ord. Sodium Chloride (Ns) 1,000 mls @ 150 mls/hr IVCONT .Q6H40M [facility] Last Admin: 02/10/25 08:15 Dose: 150 mls/hr Documented By: CAITLYN Insulin Human Lispro (Insulin Lispro 100 Unit/Ml 3 Ml Vial) 0 unit SUBCUT Q6H [facility]; Protocol Last Admin: 02/10/25 04:59 Dose: Not Given Documented By: LG Non-Admin Reason: No Insulin Coverage Montelukast Sodium (Montelukast Sodium 10 Mg Tablet) 10 mg PO DAILY [facility] Last Admin: 02/10/25 08:14 Dose: 10 mg Documented By: CAITLYN Morphine Sulfate (Morphine Sulfate 4 Mg/Ml Cartridge) 3 mg IVPUSH Q4H PRN; Protocol PRN Reason: Pain, Severe (Pain Scale 7-10) Last Admin: 02/10/25 00:01 Dose: 3 mg Documented By: LG Multi-Ingred Medicated Throat [place] (Throat [place], Medicated 177 Ml Bottle) 1 spray MUCOUS MEM Q2H PRN PRN Reason: Sore Throat Last Admin: 02/10/25 05:57 Dose: 1 spray Documented By: LG Non-Formulary Medication (Polyvinyl Alcohol [Artificial Tears (Polyvin Alc)]) 1 drop EYE-BOTH QID PRN PRN Reason: Dry Eye(S) Ondansetron HCl (Ondansetron Hcl 4 Mg/2 Ml Vial) 4 mg IVPUSH RQ4H PRN PRN Reason: Nausea and Vomiting Last Admin: 02/09/25 13:17 Dose: 4 mg Documented By: ZAIDA Oxybutynin Chloride (Oxybutynin Chloride Er 5 Mg Tab.Er.24) 10 mg PO DAILY [facility] Last Admin: 02/10/25 08:14 Dose: 10 mg Documented By: CAITLYN Sodium Chloride (0.9 % Sodium Chloride Flush 3 Ml Syringe) 3 ml IVFLUSH QSHIFT [facility] Last Admin: 02/10/25 08:14 Dose: 3 ml Documented By: CAITLYN Tiotropium [place] (Tiotropium [place] 2.5 Mcg 1 Puff/2.5 Mcg Mist.Inhal) 2 puff INHALE RDAILY [facility] Last Admin: 02/10/25 07:58 Dose: 2 puff Documented By: MINA Labs 02/10/25 05:33 02/10/25 05:33 Labs: Laboratory Results - last 24 hr 02/08/25 02/09/25 02/09/25 22:54 13:11 18:02 MCV MCH MCHC RDW Plt Count MPV Immature Gran % (Auto) Neut % (Auto) Lymph % (Auto) [place] % (Auto) Eos % (Auto) Baso % (Auto) Lymph # (Auto) [place] # (Auto) Eos # (Auto) Baso # (Auto) Abs Immat Gran (auto) Absolute Neuts (auto) Absolute Nucleated RBC Nucleated RBC % (auto) Anion Gap Estim Creat Clear Calc Estimated GFR POC Glucose 136 H 101 Random Glucose Calcium Stl C. cayetanensis PCR Not Detected Stool Rotavirus A PCR Not Detected Stl Adenov F 40/41 PCR Not Detected Stool Astrovirus (PCR) Not Detected Stool Campylobacter PCR Not Detected Stool Cryptosporidium PCR Not Detected Stl Sh Tox Pr E STEC PCR Not Detected Stool E coli O157 PCR Not applicable Stl Enterotoxigenic E PCR Not Detected Stool EPEC (PCR) Not Detected Stool EAEC (PCR) Not Detected Stl E. histolytica PCR Not Detected Stool Giardia Lamblia PCR Not Detected Stl P. shigelloides PCR Not Detected Stool Salmonella PCR Not Detected Stool Sapovirus (PCR) Not Detected Stl Shigella/EIEC PCR Not Detected St Y.enterocolitica PCR Not Detected Stool Vibrio (PCR) Not Detected Stl Vibrio cholerae PCR Not Detected Stl Norovirus GI/GII PCR Not Detected 02/09/25 02/09/25 02/10/25 20:48 22:47 04:42 MCV MCH MCHC RDW Plt Count MPV Immature Gran % (Auto) Neut % (Auto) Lymph % (Auto) [place] % (Auto) Eos % (Auto) Baso % (Auto) Lymph # (Auto) [place] # (Auto) Eos # (Auto) Baso # (Auto) Abs Immat Gran (auto) Absolute Neuts (auto) Absolute Nucleated RBC Nucleated RBC % (auto) Anion Gap Estim Creat Clear Calc Estimated GFR POC Glucose 95 105 97 Random Glucose Calcium Stl C. cayetanensis PCR Stool Rotavirus A PCR Stl Adenov F 40/41 PCR Stool Astrovirus (PCR) Stool Campylobacter PCR Stool Cryptosporidium PCR Stl Sh Tox Pr E STEC PCR Stool E coli O157 PCR Stl Enterotoxigenic E PCR Stool EPEC (PCR) Stool EAEC (PCR) Stl E. histolytica PCR Stool Giardia [place]lia PCR Stl P. shigelloides PCR Stool Salmonella PCR Stool Sapovirus (PCR) Stl Shigella/EIEC PCR St Y.enterocolitica PCR Stool Vibrio (PCR) Stl Vibrio cholerae PCR Stl Norovirus GI/GII PCR 02/10/25 02/10/25 02/10/25 05:33 06:02 07:22 MCV 85.4 MCH 30.1 MCHC 35.2 RDW 13.8 Plt Count 123 L D MPV 11.5 Immature Gran % (Auto) 0.2 Neut % (Auto) 70.1 Lymph % (Auto) 17.5 L [place] % (Auto) 10.7 Eos % (Auto) 1.2 Baso % (Auto) 0.3 Lymph # (Auto) 1.1 L [place] # (Auto) 0.7 Eos # (Auto) 0.1 Baso # (Auto) 0.0 Abs Immat Gran (auto) 0.01 Absolute Neuts (auto) 4.6 Absolute Nucleated RBC 0.000 Nucleated RBC % (auto) 0.0 Anion Gap 12 Estim Creat Clear Calc 100.1 Estimated GFR > 60 POC Glucose 103 103 Random Glucose 104 Calcium 8.0 L D Stl C. cayetanensis PCR Stool Rotavirus A PCR Stl Adenov F 40/ PCR Stool Astrovirus (PCR) Stool Campylobacter PCR Stool Cryptosporidium PCR Stl Sh Tox Pr E STEC PCR Stool E coli O157 PCR Stl Enterotoxigenic E PCR Stool EPEC (PCR) Stool EAEC (PCR) Stl E. histolytica PCR Stool Giardia [place]lia PCR Stl P. shigelloides PCR Stool Salmonella PCR Stool Sapovirus (PCR) Stl Shigella/EIEC PCR St Y.enterocolitica PCR Stool Vibrio (PCR) Stl Vibrio cholerae PCR Stl Norovirus GI/GII PCR Microbiology Microbiology Results: Microbiology 02/09/25 05:40 Blood Culture - Preliminary Blood - Venous No growth after 24 hours. 02/09/25 05:16 Blood Culture - Preliminary Blood - Venous No growth after 24 hours. Procedures Date of Service Date of Service: 02/10/25 Progress Note: A&P Assessment and plan (1) SBO (small bowel obstruction): Status: Acute Assessment and Plan: NG tube output minimal Passing flatus well No nausea or vomiting Abdomen is soft, nontender Okay to DC NG tube We will keep on sips for now and re-evaluate later Looks well overall Abdomen is soft Time Spent With Patient Time: Total time managing care of this patient today ____ minutes. Quality Stroke Does the patient have a stroke diagnosis?: No VTE Prior VTE?: No VTE Risk Level:: Surgical - low VTE Device Contraindication: N/A - Device Ordered VTE Drug Contraindication: N/A - Med Ordered
[2025-02-10] MEDS: Artificial Tears 15 ML DROPS 1 DROP EYE-BOTH (10:49)
[2025-02-10 11:12] LABS: Glucose, Whole Blood 104 mg/dL (60-115)
[2025-02-10 11:25] VITALS: BP 134/62; PULSE 61; RESP 18; TEMP 36.3; O2SAT 92
--- NOTE | 2025-02-10 13:45 | HO.PM.IMPN ---
Subjective Subjective Date of Service: 02/10/25 Interval History: seen and examined this morning follow up medical consultation NG tube out, patient reports feeling much better, abdominal pain improving, passing gas Review of Systems Review of Systems: Yes all other systems are reviewed and are negative Constitutional Constitutional: Denies chills and Denies fever(s) Cardiovascular Cardiovascular: Denies chest pain, Denies palpitations and Denies dyspnea Respiratory Respiratory: Denies cough and Denies dyspnea Gastrointestinal Gastrointestinal: Denies vomiting Endocrine Endocrine: Denies palpitations Physical Exam Vital Signs: Vital Signs: Last Vital Signs Temp 97.4 F 02/10/25 11:25 Pulse 61 02/10/25 11:25 Resp 18 02/10/25 11:25 BP 134/62 02/10/25 11:25 Pulse Ox 92 02/10/25 11:25 O2 Del Method Room Air 02/10/25 11:25 BMI result Body Mass Index 30.3 Const: General: cooperative, alert and awake Nutritional Appearance: average body habitus Orientation/consciousness: patient oriented x3 Resp: Effort & Inspection: normal respiratory effort, able to speak in complete sentences, no respiratory distress and no use of accessory muscles Cardio: Rate: regular rate GI: Other: no guarding no rebound Neuro: General: patient oriented x3, moves all extremities and CN's II-XI intact bilaterally Objective Data Active Medications Acetaminophen (Acetaminophen 325 Mg Tablet) 650 mg PO Q6H PRN PRN Reason: Headache/Pain, Scale 1-10 Last Admin: 02/10/25 10:17 Dose: 650 mg Documented By: CAITLYN Albuterol Sulfate (Albuterol Sulfate (0.083%) 2.5 Mg/3 Ml Vial.Neb) 2.5 mg INHALE Q6H PRN PRN Reason: Shortness Of Breath Or Wheezing Artificial Tears (Artificial Tears 15 Ml Drops) 1 drop EYE-BOTH QID PRN PRN Reason: Dry Eye(S) Last Admin: 02/10/25 10:49 Dose: 1 drop Documented By: CAITLYN Benzocaine (Throat Lozenge, Medicated Lozenge) 1 lozenge MUCOUS MEM Q2H PRN PRN Reason: Sore Throat Bupropion HCl (Bupropion Hcl Xl 150 Mg Tab.Er.24h) 150 mg PO DAILY [facility] Last Admin: 02/10/25 08:14 Dose: 150 mg Documented By: CAITLYN Clonazepam (Clonazepam 1 Mg Tablet) 1 mg PO BEDTIME [facility] Last Admin: 02/09/25 22:35 Dose: 1 mg Documented By: NATO Clonazepam (Clonazepam 0.5 Mg Tablet) 0.5 mg PO DAILY [facility] Last Admin: 02/10/25 08:14 Dose: 0.5 mg Documented By: CAITLYN Dextrose (Dextrose 50 % 25 Gm/50 Ml Syringe) 25 gm IVPUSH Q15M PRN; Protocol PRN Reason: per Hypoglycemia Standing Ord. Escitalopram Oxalate (Escitalopram Oxalate 10 Mg Tablet) 10 mg PO DAILY [facility] Last Admin: 02/10/25 08:14 Dose: 10 mg Documented By: CAITLYN Glucose (Glucose Gel 15 Gm Gel..Gram.) 15 gm PO Q15M PRN; Protocol PRN Reason: per Hypoglycemia Standing Ord. Sodium Chloride (Ns) 1,000 mls @ 150 mls/hr IVCONT .Q6H40M [facility] Last Admin: 02/10/25 08:15 Dose: 150 mls/hr Documented By: CAITLYN Insulin Human Lispro (Insulin Lispro 100 Unit/Ml 3 Ml Vial) 0 unit SUBCUT Q6H [facility]; Protocol Last Admin: 02/10/25 12:02 Dose: Not Given Documented By: CAITLYN Non-Admin Reason: No Insulin Coverage Montelukast Sodium (Montelukast Sodium 10 Mg Tablet) 10 mg PO DAILY [facility] Last Admin: 02/10/25 08:14 Dose: 10 mg Documented By: CAITLYN Morphine Sulfate (Morphine Sulfate 4 Mg/Ml Cartridge) 3 mg IVPUSH Q4H PRN; Protocol PRN Reason: Pain, Severe (Pain Scale 7-10) Last Admin: 02/10/25 00:01 Dose: 3 mg Documented By: LG Multi-Ingred Medicated Throat [place] (Throat [place], Medicated 177 Ml Bottle) 1 spray MUCOUS MEM Q2H PRN PRN Reason: Sore Throat Last Admin: 02/10/25 05:57 Dose: 1 spray Documented By: LG Omeprazole (Omeprazole 40 Mg Capsule.) 40 mg PO DAILY@0630 [facility] Ondansetron HCl (Ondansetron Hcl 4 Mg/2 Ml Vial) 4 mg IVPUSH RQ4H PRN PRN Reason: Nausea and Vomiting Last Admin: 02/09/25 13:17 Dose: 4 mg Documented By: ZAIDA Oxybutynin Chloride (Oxybutynin Chloride Er 5 Mg Tab.Er.24) 10 mg PO DAILY [facility] Last Admin: 02/10/25 08:14 Dose: 10 mg Documented By: CAITLYN Sodium Chloride (0.9 % Sodium Chloride Flush 3 Ml Syringe) 3 ml IVFLUSH QSHIFT [facility] Last Admin: 02/10/25 08:14 Dose: 3 ml Documented By: CAITLYN Tiotropium [place] (Tiotropium [place] 2.5 Mcg 1 Puff/2.5 Mcg Mist.Inhal) 2 puff INHALE RDAILY [facility] Last Admin: 02/10/25 07:58 Dose: 2 puff Documented By: MINA Labs 02/10/25 05:33 02/10/25 05:33 Labs: Laboratory Results - last 24 hr 02/09/25 02/09/25 02/09/25 18:02 20:48 22:47 MCV MCH MCHC RDW Plt Count MPV Immature Gran % (Auto) Neut % (Auto) Lymph % (Auto) [place] % (Auto) Eos % (Auto) Baso % (Auto) Lymph # (Auto) [place] # (Auto) Eos # (Auto) Baso # (Auto) Abs Immat Gran (auto) Absolute Neuts (auto) Absolute Nucleated RBC Nucleated RBC % (auto) Anion Gap Estim Creat Clear Calc Estimated GFR POC Glucose 101 95 105 Random Glucose Calcium 02/10/25 02/10/25 02/10/25 04:42 05:33 06:02 MCV 85.4 MCH 30.1 MCHC 35.2 RDW 13.8 Plt Count 123 L D MPV 11.5 Immature Gran % (Auto) 0.2 Neut % (Auto) 70.1 Lymph % (Auto) 17.5 L [place] % (Auto) 10.7 Eos % (Auto) 1.2 Baso % (Auto) 0.3 Lymph # (Auto) 1.1 L [place] # (Auto) 0.7 Eos # (Auto) 0.1 Baso # (Auto) 0.0 Abs Immat Gran (auto) 0.01 Absolute Neuts (auto) 4.6 Absolute Nucleated RBC 0.000 Nucleated RBC % (auto) 0.0 Anion Gap 12 Estim Creat Clear Calc 100.1 Estimated GFR > 60 POC Glucose 97 103 Random Glucose 104 Calcium 8.0 L D 02/10/25 02/10/25 07:22 11:09 MCV MCH MCHC RDW Plt Count MPV Immature Gran % (Auto) Neut % (Auto) Lymph % (Auto) [place] % (Auto) Eos % (Auto) Baso % (Auto) Lymph # (Auto) [place] # (Auto) Eos # (Auto) Baso # (Auto) Abs Immat Gran (auto) Absolute Neuts (auto) Absolute Nucleated RBC Nucleated RBC % (auto) Anion Gap Estim Creat Clear Calc Estimated GFR POC Glucose 103 104 Random Glucose Calcium Microbiology Microbiology Results: Microbiology 02/09/25 05:40 Blood Culture - Preliminary Blood - Venous No growth after 24 hours. 02/09/25 05:16 Blood Culture - Preliminary Blood - Venous No growth after 24 hours. Assessment and Plan (1) SBO (small bowel obstruction): Status: Acute (2) Controlled type 2 diabetes mellitus: Status: Acute Plan This is a 64-year-old male with history of COPD, ulcerative colitis, diabetes, hyperlipidemia, multiple bowl intra-abdominal surgeries who presents to the emergency department with diarrhea and abdominal distention found to have small-bowel obstruction and admitted to the surgical service Small-bowel obstruction Management as per surgical team will hold all non essential oral medications until tolerating regular diet NGT out thrombocytopenia appears acute follow CBC T2DM hold Trulicity Follow q.6 hour POCs while NPO, change to qidachs when advance diet POCs wnl COPD No acute exacerbation Continue baseline inhalers Mood Continue baseline meds Hypertension On propranolol for hypertension and migraine BP on soft side, will hold for now HLD Hold statin until tolerating regular diet h/o UC Dicyclomine, mesalamine as listed as p.r.n., will hold for now on xarelto to prevent blood clots per patient due to history of bad blood flow ?due to PVD or vericose veins denies afib or history of DVT or PE hold xarelto for now, resume when safe from surgical perspective overactive bladder continue oxybutynin DVT prophylaxis- as per surgical team. will hold xarelto for now in case pt requires surgical intervention Thank you for allowing us to participate in the care of this patient. We will follow along with you Quality Stroke Does the patient have a stroke diagnosis?: No VTE Prior VTE?: No VTE Risk Level:: Surgical - low VTE Device Contraindication: N/A - Device Ordered VTE Drug Contraindication: N/A - Med Ordered
[2025-02-10 15:27] VITALS: BP 139/80; PULSE 80; RESP 18; TEMP 36.8; O2SAT 97
--- NOTE | 2025-02-10 17:06 | PM.EVENT ---
Event Note Date of Service: 02/10/25 Event Note: Seen on afternoon rounds Passing flatus Hungry and wants to eat No nausea or vomiting Looks well overall Abdomen is soft and benign, nontender Okay to try clear liquids Advance diet tomorrow as tolerated Doing well Time Spent With Patient Time: Total time managing care of this patient today ____ minutes.
[2025-02-10 17:50] LABS: Glucose, Whole Blood 115 mg/dL (60-115)
[2025-02-10 20:00] VITALS: BP 125/70; PULSE 90; RESP 18; TEMP 37; O2SAT 97
[2025-02-10 23:35] LABS: Glucose, Whole Blood 86 mg/dL (60-115)
[2025-02-11 04:00] VITALS: BP 106/55; PULSE 77; RESP 16; TEMP 36.8; O2SAT 96
[2025-02-11 05:58] LABS: Hemoglobin 12.7 g/dl (14.0-18.0); NRBC Abs Auto 0.000 X10*3/uL (0.0-0.012); NRBC Pct Auto 0.0 /100WBC (0.0-0.2); PLT CLUMP 1
[2025-02-11 05:59] LABS: Hematocrit 36.0 % (42.0-52.0); Mean Corpuscular HGB Conc 35.3 g/dl (31.0-36.0); Mean Corpuscular Hemoglobin 29.9 pg (27.0-33.0); Mean Corpuscular Volume 84.7 fL (80.0-98.0); Red Blood Count 4.25 X10*6/uL (4.60-5.80)
[2025-02-11 06:18] LABS: Glucose, Whole Blood 98 mg/dL (60-115)
[2025-02-11 06:27] LABS: Platelet Count 127 X10*3/uL (160-400); White Blood Count 5.2 X10*3/uL (4.8-10.8)
[2025-02-11 07:23] VITALS: BP 129/76; PULSE 79; RESP 14; TEMP 36.6; O2SAT 95
[2025-02-11] MEDS: Tiotropium Bromide 2.5 mcg 1 PUFF/2.5 MCG MIST.INHAL 2 PUFF INHALE (07:52)
[2025-02-11 07:53] VITALS: PULSE 83; RESP 18; O2SAT 98
[2025-02-11] MEDS: 0.9 % Sodium Chloride Flush 3 ML SYRINGE IVFLUSH ×3 (08:16→21:05)
[2025-02-11] MEDS: oxyBUTYnin chloride ER 5 MG TAB.ER.24 10 MG PO (08:18)
[2025-02-11] MEDS: buPROPion HCl XL 150 MG TAB.ER.24H PO (08:18)
[2025-02-11 11:26] LABS: Glucose, Whole Blood 146 mg/dL (60-115)
--- NOTE | 2025-02-11 12:48 | PM.PNGS ---
Subjective Subjective Date of Service: 02/11/25 <Clemente Moise PA-C - Last Filed: 02/11/25 14:33> 02/13/25 <Cesar Lisa MD - Last Filed: 02/13/25 18:54> Interval history: doing well today. Tolerating clear liquid diet. Continues to pass gas, had a moderate size bowel movement yesterday. Denying nausea or vomiting. Denying fever or chills <Clemente Moise PA-C - Last Filed: 02/11/25 14:33> Physical Exam Vital Signs: Vital Signs: Last Vital Signs Temp 97.9 F 02/11/25 07:23 Pulse 83 02/11/25 07:53 Resp 18 02/11/25 07:53 BP 129/76 02/11/25 07:23 Pulse Ox 95 02/11/25 07:23 O2 Del Method Room Air 02/11/25 07:23 BMI result Body Mass Index 30.3 <Clemente Moise PA-C - Last Filed: 02/11/25 14:33> Const: General: comfortable and no acute distress <Clemente Moise PA-C - Last Filed: 02/11/25 14:33> Orientation/consciousness: patient oriented x3 <Clemente Moise PA-C - Last Filed: 02/11/25 14:33> Resp: Effort & Inspection: normal respiratory effort and able to speak in complete sentences <Clemente Moise PA-C - Last Filed: 02/11/25 14:33> GI: Inspection: No distended <Clemente Moise PA-C - Last Filed: 02/11/25 14:33> Palpation (GI): Soft to palpation, not firm, Tenderness to palpation present (GI) (Mild epigastric), no guarding and not rigid <Clemente Moise PA-C - Last Filed: 02/11/25 14:33> Neuro: General: patient oriented x3 <BRITNEY House Last Filed: 02/11/25 14:33> Objective Data Active Medications Acetaminophen (Acetaminophen 325 Mg Tablet) 650 mg PO Q6H PRN PRN Reason: Headache/Pain, Scale 1-10 Last Admin: 02/11/25 11:51 Dose: 650 mg Documented By: TONY Albuterol Sulfate (Albuterol Sulfate (0.083%) 2.5 Mg/3 Ml Vial.Neb) 2.5 mg INHALE Q6H PRN PRN Reason: Shortness Of Breath Or Wheezing Artificial Tears (Artificial Tears 15 Ml Drops) 1 drop EYE-BOTH QID PRN PRN Reason: Dry Eye(S) Last Admin: 02/10/25 10:49 Dose: 1 drop Documented By: LUCIA Benzocaine (Throat Lozenge, Medicated Lozenge) 1 lozenge MUCOUS MEM Q2H PRN PRN Reason: Sore Throat Bupropion HCl (Bupropion Hcl Xl 150 Mg Tab.Er.24h) 150 mg PO DAILY [facility] Last Admin: 02/11/25 08:18 Dose: 150 mg Documented By: TONY Clonazepam (Clonazepam 1 Mg Tablet) 1 mg PO BEDTIME [facility] Last Admin: 02/10/25 21:44 Dose: 1 mg Documented By: RAMIREZ Clonazepam (Clonazepam 0.5 Mg Tablet) 0.5 mg PO DAILY [facility] Last Admin: 02/11/25 08:18 Dose: 0.5 mg Documented By: TONY Dextrose (Dextrose 50 % 25 Gm/50 Ml Syringe) 25 gm IVPUSH Q15M PRN; Protocol PRN Reason: per Hypoglycemia Standing Ord. Escitalopram Oxalate (Escitalopram Oxalate 10 Mg Tablet) 10 mg PO DAILY [facility] Last Admin: 02/11/25 08:18 Dose: 10 mg Documented By: TONY Glucose (Glucose Gel 15 Gm Gel..Gram.) 15 gm PO Q15M PRN; Protocol PRN Reason: per Hypoglycemia Standing Ord. Insulin Human Lispro (Insulin Lispro 100 Unit/Ml 3 Ml Vial) 0 unit SUBCUT QIDACHS [facility]; Protocol Last Admin: 02/11/25 11:31 Dose: Not Given Documented By: TONY Non-Admin Reason: No Insulin Coverage Montelukast Sodium (Montelukast Sodium 10 Mg Tablet) 10 mg PO DAILY [facility] Last Admin: 02/11/25 08:18 Dose: 10 mg Documented By: TONY Morphine Sulfate (Morphine Sulfate 4 Mg/Ml Cartridge) 3 mg IVPUSH Q4H PRN; Protocol PRN Reason: Pain, Severe (Pain Scale 7-10) Last Admin: 02/10/25 00:01 Dose: 3 mg Documented By: LG Multi-Ingred Medicated Throat [place] (Throat [place], Medicated 177 Ml Bottle) 1 spray MUCOUS MEM Q2H PRN PRN Reason: Sore Throat Last Admin: 02/10/25 05:57 Dose: 1 spray Documented By: LG Omeprazole (Omeprazole 40 Mg Capsule.Dr) 40 mg PO DAILY@0630 [facility] Last Admin: 02/11/25 05:30 Dose: 40 mg Documented By: RAMIREZ Ondansetron HCl (Ondansetron Hcl 4 Mg/2 Ml Vial) 4 mg IVPUSH RQ4H PRN PRN Reason: Nausea and Vomiting Last Admin: 02/09/25 13:17 Dose: 4 mg Documented By: ZAIDA Oxybutynin Chloride (Oxybutynin Chloride Er 5 Mg Tab.Er.24) 10 mg PO DAILY [facility] Last Admin: 02/11/25 08:18 Dose: 10 mg Documented By: TONY Sodium Chloride (0.9 % Sodium Chloride Flush 3 Ml Syringe) 3 ml IVFLUSH QSHIFT [facility] Last Admin: 02/11/25 08:16 Dose: 3 ml Documented By: TONY Tiotropium [place] (Tiotropium [place] 2.5 Mcg 1 Puff/2.5 Mcg Mist.Inhal) 2 puff INHALE RDAILY [facility] Last Admin: 02/11/25 07:52 Dose: 2 puff Documented By: MINA <Clemente Moise PA-C - Last Filed: 02/11/25 14:33> Labs CBC & Chem 7: 02/11/25 05:32 02/10/25 05:33 <Clemente Moise PA-C - Last Filed: 02/11/25 14:33> Labs: Laboratory Results - last 24 hr 02/10/25 02/10/25 02/11/25 17:47 23:27 05:32 MCV 84.7 MCH 29.9 MCHC 35.3 RDW 13.7 Plt Count 127 L MPV 10.9 Absolute Nucleated RBC 0.000 Nucleated RBC % (auto) 0.0 POC Glucose 115 86 02/11/25 02/11/25 06:14 11:21 MCV MCH MCHC RDW Plt Count MPV Absolute Nucleated RBC Nucleated RBC % (auto) POC Glucose 98 146 H <Clemente Moise PA-C - Last Filed: 02/11/25 14:33> Microbiology Microbiology Results: Microbiology 02/09/25 05:40 Blood Culture - Preliminary Blood - Venous No growth after 48 hours. 02/09/25 05:16 Blood Culture - Preliminary Blood - Venous No growth after 48 hours. <Clemente Moise PA-C - Last Filed: 02/11/25 14:33> Procedures Date of Service Date of Service: 02/11/25 <Clemente Moise PA-C - Last Filed: 02/11/25 14:33> 02/13/25 <Cesar Lisa MD - Last Filed: 02/13/25 18:54> Progress Note: A&P Assessment and plan (1) SBO (small bowel obstruction): Status: Acute <Clemente Moise PA-C - Last Filed: 02/11/25 14:33> Assessment and Plan: 65-year-old male admitted for SBO. Clinically doing well, remains asymptomatic after NG tube removal. Abdomen is soft and benign, mildly tender epigastric area but not distended. Passing gas, moderate size bowel movement yesterday. He is tolerating clear liquid diet without return of symptoms. Clinically he is unobstructed at this point. We will advance diet to solid foods, diabetic diet. We will continue to follow, if tolerating diet possible discharge tomorrow . Serial abdominal exams Advance diet to solid foods <Clemente Moise PA-C - Last Filed: 02/11/25 14:33> 65-year-old male admitted for SBO. Clinically doing well, remains asymptomatic after NG tube removal. Abdomen is soft and benign, mildly tender epigastric area but not distended. Passing gas, moderate size bowel movement yesterday. He is tolerating clear liquid diet without return of symptoms. Clinically he is unobstructed at this point. We will advance diet to solid foods, diabetic diet. We will continue to follow, if tolerating diet possible discharge tomorrow . Serial abdominal exams Advance diet to solid foods Patient seen and examined independently and I agree with the above assessment and plan. <Cesar Lisa MD - Last Filed: 02/13/25 18:54> Time Spent With Patient Time: Total time managing care of this patient today ____ minutes. <Clemente Moise PA-C - Last Filed: 02/11/25 14:33> Quality Stroke Does the patient have a stroke diagnosis?: No <Clemente Moise PA-C - Last Filed: 02/11/25 14:33> VTE Prior VTE?: No <Clemente Moise PA-C - Last Filed: 02/11/25 14:33> VTE Risk Level:: Surgical - low <Clemente Moise PA-C - Last Filed: 02/11/25 14:33> VTE Device Contraindication: N/A - Device Ordered <Clemente Moise PA-C - Last Filed: 02/11/25 14:33> VTE Drug Contraindication: N/A - Med Ordered <Clemente Moise PA-C - Last Filed: 02/11/25 14:33>
--- NOTE | 2025-02-11 14:30 | HO.PM.IMPN ---
Subjective Subjective Date of Service: 02/11/25 Interval History: Seen and examind this morning follow up for medical consultation no Overnight events Review of Systems Review of Systems: Yes all other systems are reviewed and are negative Constitutional Constitutional: Denies chills and Denies fever(s) Physical Exam Vital Signs: Vital Signs: Last Vital Signs Temp 97.9 F 02/11/25 07:23 Pulse 83 02/11/25 07:53 Resp 18 02/11/25 07:53 BP 129/76 02/11/25 07:23 Pulse Ox 95 02/11/25 07:23 O2 Del Method Room Air 02/11/25 07:23 BMI result Body Mass Index 30.3 Const: General: cooperative, alert and awake Nutritional Appearance: average body habitus Orientation/consciousness: patient oriented x3 Resp: Effort & Inspection: normal respiratory effort, able to speak in complete sentences, no respiratory distress and no use of accessory muscles Cardio: Rate: regular rate GI: Other: no guarding no rebound Palpation (GI): Soft to palpation Neuro: General: patient oriented x3, moves all extremities and CN's II-XI intact bilaterally Objective Data Active Medications Acetaminophen (Acetaminophen 325 Mg Tablet) 650 mg PO Q6H PRN PRN Reason: Headache/Pain, Scale 1-10 Last Admin: 02/11/25 11:51 Dose: 650 mg Documented By: TONY Albuterol Sulfate (Albuterol Sulfate (0.083%) 2.5 Mg/3 Ml Vial.Neb) 2.5 mg INHALE Q6H PRN PRN Reason: Shortness Of Breath Or Wheezing Artificial Tears (Artificial Tears 15 Ml Drops) 1 drop EYE-BOTH QID PRN PRN Reason: Dry Eye(S) Last Admin: 02/10/25 10:49 Dose: 1 drop Documented By: LUCGADIEL Benzocaine (Throat Lozenge, Medicated Lozenge) 1 lozenge MUCOUS MEM Q2H PRN PRN Reason: Sore Throat Bupropion HCl (Bupropion Hcl Xl 150 Mg Tab.Er.24h) 150 mg PO DAILY ANG Last Admin: 02/11/25 08:18 Dose: 150 mg Documented By: TONY Clonazepam (Clonazepam 1 Mg Tablet) 1 mg PO BEDTIME ANG Last Admin: 02/10/25 21:44 Dose: 1 mg Documented By: RAMIREZ Clonazepam (Clonazepam 0.5 Mg Tablet) 0.5 mg PO DAILY [facility] Last Admin: 02/11/25 08:18 Dose: 0.5 mg Documented By: TONY Dextrose (Dextrose 50 % 25 Gm/50 Ml Syringe) 25 gm IVPUSH Q15M PRN; Protocol PRN Reason: per Hypoglycemia Standing Ord. Escitalopram Oxalate (Escitalopram Oxalate 10 Mg Tablet) 10 mg PO DAILY [facility] Last Admin: 02/11/25 08:18 Dose: 10 mg Documented By: TONY Glucose (Glucose Gel 15 Gm Gel..Gram.) 15 gm PO Q15M PRN; Protocol PRN Reason: per Hypoglycemia Standing Ord. Insulin Human Lispro (Insulin Lispro 100 Unit/Ml 3 Ml Vial) 0 unit SUBCUT QIDACHS [facility]; Protocol Last Admin: 02/11/25 11:31 Dose: Not Given Documented By: TONY Non-Admin Reason: No Insulin Coverage Montelukast Sodium (Montelukast Sodium 10 Mg Tablet) 10 mg PO DAILY [facility] Last Admin: 02/11/25 08:18 Dose: 10 mg Documented By: TONY Morphine Sulfate (Morphine Sulfate 4 Mg/Ml Cartridge) 3 mg IVPUSH Q4H PRN; Protocol PRN Reason: Pain, Severe (Pain Scale 7-10) Last Admin: 02/10/25 00:01 Dose: 3 mg Documented By: LG Multi-Ingred Medicated Throat Bourg (Throat [place]g, Medicated 177 Ml Bottle) 1 spray MUCOUS MEM Q2H PRN PRN Reason: Sore Throat Last Admin: 02/10/25 05:57 Dose: 1 spray Documented By: LG Omeprazole (Omeprazole 40 Mg Capsule.) 40 mg PO DAILY@0630 [facility] Last Admin: 02/11/25 05:30 Dose: 40 mg Documented By: RAMIREZ Ondansetron HCl (Ondansetron Hcl 4 Mg/2 Ml Vial) 4 mg IVPUSH RQ4H PRN PRN Reason: Nausea and Vomiting Last Admin: 02/09/25 13:17 Dose: 4 mg Documented By: ZAIDA Oxybutynin Chloride (Oxybutynin Chloride Er 5 Mg Tab.Er.24) 10 mg PO DAILY [facility] Last Admin: 02/11/25 08:18 Dose: 10 mg Documented By: TONY Sodium Chloride (0.9 % Sodium Chloride Flush 3 Ml Syringe) 3 ml IVFLUSH QSHIFT [facility] Last Admin: 02/11/25 08:16 Dose: 3 ml Documented By: TONY Tiotropium [place] (Tiotropium [place] 2.5 Mcg 1 Puff/2.5 Mcg Mist.Inhal) 2 puff INHALE RDAILY [facility] Last Admin: 02/11/25 07:52 Dose: 2 puff Documented By: MINA Labs 02/11/25 05:32 02/10/25 05:33 Labs: Laboratory Results - last 24 hr 02/10/25 02/10/25 02/11/25 17:47 23:27 05:32 MCV 84.7 MCH 29.9 MCHC 35.3 RDW 13.7 Plt Count 127 L MPV 10.9 Absolute Nucleated RBC 0.000 Nucleated RBC % (auto) 0.0 POC Glucose 115 86 02/11/25 02/11/25 06:14 11:21 MCV MCH MCHC RDW Plt Count MPV Absolute Nucleated RBC Nucleated RBC % (auto) POC Glucose 98 146 H Microbiology Microbiology Results: Microbiology 02/09/25 05:40 Blood Culture - Preliminary Blood - Venous No growth after 48 hours. 02/09/25 05:16 Blood Culture - Preliminary Blood - Venous No growth after 48 hours. Assessment and Plan (1) Controlled type 2 diabetes mellitus: Status: Acute Plan This is a 64-year-old male with history of COPD, ulcerative colitis, diabetes, hyperlipidemia, multiple bowl intra-abdominal surgeries who presents to the emergency department with diarrhea and abdominal distention found to have small-bowel obstruction and admitted to the surgical service Small-bowel obstruction Management as per surgical team NGT out diet advanced thrombocytopenia appears acute, but stable T2DM hold Trulicity follow POCs, advance to diabetic diet COPD No acute exacerbation Continue baseline inhalers Mood Continue baseline meds Hypertension On propranolol for hypertension and migraine BP on soft side, will hold for now HLD Hold statin until tolerating regular diet h/o UC Dicyclomine, mesalamine as listed as p.r.n., will hold for now on xarelto to prevent blood clots per patient due to history of bad blood flow ?due to PVD or vericose veins denies afib or history of DVT or PE resume xarelto overactive bladder continue oxybutynin DVT prophylaxis- xarelto Thank you for allowing us to participate in the care of this patient. There are no acute medical issues at this time, we will sign off. Please feel free to call us Quality Stroke Does the patient have a stroke diagnosis?: No VTE Prior VTE?: No VTE Risk Level:: Surgical - low VTE Device Contraindication: N/A - Device Ordered VTE Drug Contraindication: N/A - Med Ordered
--- NOTE | 2025-02-11 14:51 | MHC.CM.PN ---
EMR REVIEWED . PT IS NOT YET MEDICALLY CLEARED FOR DC (DIET ADVANCING, RESOLVING SBO) CM WILL CONTINUE TO FOLLOW FOR ANY CHANGE TO DC PLAN.
[2025-02-11 16:03] VITALS: BP 135/66; PULSE 85; RESP 18; TEMP 36.4; O2SAT 95
[2025-02-11 16:27] LABS: Glucose, Whole Blood 96 mg/dL (60-115)
[2025-02-11 19:00] VITALS: BP 123/67; PULSE 88; RESP 18; TEMP 36.8; O2SAT 95
[2025-02-11 20:16] LABS: Glucose, Whole Blood 113 mg/dL (60-115)
[2025-02-12 02:57] VITALS: BP 125/71; PULSE 83; RESP 18; TEMP 37.2; O2SAT 96
[2025-02-12 07:16] LABS: Glucose, Whole Blood 101 mg/dL (60-115)
[2025-02-12 07:17] VITALS: BP 127/72; PULSE 71; RESP 16; TEMP 36.5; O2SAT 95
[2025-02-12 08:19] VITALS: PULSE 74; RESP 16; O2SAT 98
[2025-02-12] MEDS: Tiotropium Bromide 2.5 mcg 1 PUFF/2.5 MCG MIST.INHAL 2 PUFF INHALE (08:19)
[2025-02-12] MEDS: buPROPion HCl XL 150 MG TAB.ER.24H PO (08:39)
[2025-02-12] MEDS: oxyBUTYnin chloride ER 5 MG TAB.ER.24 10 MG PO (08:39)
[2025-02-12] MEDS: 0.9 % Sodium Chloride Flush 3 ML SYRINGE IVFLUSH (08:40)
[2025-02-12] MEDS: Artificial Tears 15 ML DROPS 1 DROP EYE-BOTH (08:44)
[2025-02-12 11:21] LABS: Glucose, Whole Blood 121 mg/dL (60-115)
--- NOTE | 2025-02-12 13:38 | P.DS_ITS ---
DS: Providers Provider Date of Service: 02/12/25 Date of admission: 02/09/25 06:50 Date of discharge: 02/12/25 Primary care physician: Shelli Bartlett MD Admitting clinician: Mariel Herrmann Consults: 02/09/25 10:44 Consult to Hospitalist Routine Comment: Consulting Provider: [facility] Reason For Exam: DM, history of COPD Attending physician on discharge: Mariel Herrmann DS: Diagnosis Discharge Diagnosis (1) Controlled type 2 diabetes mellitus: Status: Acute DS: Summary Hospital Course Hospital Course: 64-year-old male with history of COPD, ulcerative colitis, diabetes, hyperlipidemia, multiple bowl intra-abdominal surgeries who presents to the emergency department with diarrhea and abdominal distention found to have small- bowel obstruction and admitted to the surgical service. He quickly resolved this with bowel rest npo ng tube and waiting. He is doing well tolerating po diet and ambulating and no pain. Plan to dc home on light diet and ambulating. Status at Discharge Functional status at discharge: independent ambulation Overall status at discharge: patient is progressing back to baseline Time Attestation Total time managing care of this patient today: 30 mintues. Discharge Coordination Time (in mins): 30 Specific discharge activities: regular activity Quality: Safe Use of Opioids Does Pt have an Active Cancer Diagnosis on the Problem List?: No Quality: Stroke Does the patient have a stroke diagnosis?: No Physical Exam Vital Signs: Vital Signs: Last Vital Signs Temp 97.7 F 02/12/25 07:17 Pulse 74 02/12/25 08:19 Resp 16 02/12/25 08:19 BP 127/72 02/12/25 07:17 Pulse Ox 95 02/12/25 07:17 O2 Del Method Room Air 02/12/25 07:17 BMI result Body Mass Index 30.3 Resp: Effort & Inspection: normal respiratory effort GI: Other: abdomen soft little distended but active sounds nontender DS: Data Data Completed and Pending Labs on day of discharge: Laboratory Results - last 24 hr 02/11/25 02/11/25 02/12/25 16:17 20:12 07:11 POC Glucose 96 113 101 02/12/25 11:14 POC Glucose 121 H Preliminary micro results at discharge 02/09/25 05:40 Blood Culture - Preliminary Blood - Venous No growth after 48 hours. 02/09/25 05:16 Blood Culture - Preliminary Blood - Venous No growth after 48 hours. Discharge Plan Discharge Anticipated Discharge Date/Time: 02/12/25 13:37 Patient Disposition: Home, Self-Care Discharge Diagnosis: Partial small-bowel obstruction Referrals: Joey Talbert MD [Physician, General Surgery] - 3 Weeks Shelli Kwan MD [Primary Care Provider, Internal Medicine] - 1 Week Discharge Medications: Continued diclofenac sodium 3 % gel 1 appl topical BID PRN (Reason: pain) 30 Days Qty: 100 2RF albuterol sulfate [Ventolin HFA] 90 mcg/actuation HFA aerosol inhaler 2 puff PO QID PRN (Reason: for wheezing) Qty: 18 0RF (DME) adjustable bed rail See Rx Instructions .Route .MEDSUPPLY Qty: 1 0RF Rx Instructions: As directed Incruse Ellipta 62.5 mcg/actuation blister with device 1 inh PO DAILY Qty: 30 3RF oxybutynin chloride 10 mg tablet extended release 24hr 10 mg PO DAILY 90 Days Qty: 90 1RF Rx Instructions: daily atorvastatin 20 mg tablet 20 mg PO BEDTIME 90 Days Qty: 90 1RF montelukast 10 mg tablet 10 mg PO DAILY Qty: 90 0RF clonazepam 0.5 mg tablet 1 mg PO BEDTIME clonazepam 0.5 mg tablet 0.5 mg PO DAILY dicyclomine 20 mg tablet 20 mg PO BID PRN (Reason: Abdominal Discomfort) clotrimazole-betamethasone 1-0.05 % cream 1 appl topical BID PRN (Reason: Inflamed/Itchy Skin) Rx Instructions: apply bid for 7 - 10 days then prn docusate sodium [Colace] 100 mg capsule 100 mg PO BID PRN (Reason: Constipation) mesalamine 1.2 gram tablet,delayed release (DR/EC) 2.4 g PO DAILY PRN (Reason: Inflammatory Bowel Disease) Trulicity 1.5 mg/0.5 mL pen injector 1.5 mg subcut BEEBE fluticasone propionate 50 mcg/actuation spray,suspension 2 spray intranasal DAILY PRN (Reason: for allergic rhinitis) escitalopram oxalate [Lexapro] 10 mg tablet 10 mg PO DAILY Centrum Silver Men 300-600-300 mcg tablet 1 tab PO DAILY (DME) shower head See Rx Instructions .Route .MEDSUPPLY Qty: 1 0RF Rx Instructions: As directed Xarelto 20 mg tablet 20 mg PO DAILY bupropion HCl 150 mg tablet extended release 24 hr 150 mg PO DAILY (DME) bath mat See Rx Instructions .Route .MEDSUPPLY Qty: 1 0RF Rx Instructions: As directed albuterol sulfate 2.5 mg /3 mL (0.083 %) solution for nebulization 2.5 mg inhalation Q6H PRN (Reason: Shortness Of Breath Or Wheezing) propranolol 80 mg capsule,extended release 24 hr 80 mg PO BID triamcinolone acetonide 0.1 % cream 1 appl topical TID PRN (Reason: Red/Itchy Skin) polyvinyl alcohol [Artificial Tears (polyvin alc)] 1.4 % drops 1 drp ophthalmic (eye) QID PRN (Reason: Dry Eye(S)) sumatriptan succinate 50 mg tablet 50 mg PO DAILY PRN (Reason: Migraine Headache) dexlansoprazole 60 mg capsule,biphase delayed releas 60 mg PO DAILY 90 Days Qty: 90 1RF bisacodyl [Dulcolax (bisacodyl)] 5 mg tablet,delayed release (DR/EC) 10 mg PO BEDTIME 2 Days Qty: 4 0RF (DME) blood-glucose meter [FreeStyle Lite Meter] Kit See Rx Instructions .ROUTE .MEDSUPPLY Qty: 1 0RF Rx Instructions: Use daily As directed to check blood sugars (DME) FreeStyle Lite Strips Strip See Rx Instructions .ROUTE .MEDSUPPLY Qty: 100 3RF Rx Instructions: Use daily As directed to check blood glucose (DME) lancets [FreeStyle Lancets] 28 gauge misc See Rx Instructions .ROUTE .MEDSUPPLY Qty: 100 3RF Rx Instructions: use daily as directed to check blood glucose Discharge Orders: Discharge Order (Routine); Ordered 02/12/25 Ordered By: Mariel Herrmann Diet: Advance to usual diet Activity on Discharge: As tolerated Stand Alone Forms: Patient Portal Discharge page Print Language: Occitan Care Plan Goals: Returned to baseline Health Concerns: Had episodes of partial small-bowel obstruction, with previous abdominal surgeries Plan of Treatment: Diet as tolerated, close monitoring Assessment: Doing well overall
--- NOTE | 2025-02-12 14:17 | MHC.CM.PN ---
PT TO DC HOME TODAY WITH RESUMPTION OF HIS [employer]ILDING [employer] [facility] TO TRANSPORT
== END 2025-02-12 14:44 | disposition home or self-care (01) | DRG 387 ==
LOC: HO.ED 02-09 05:33 → HO.EDOVER 02-09 06:57 → HO.S3 02-09 19:23
PROVIDERS: Physician Assistant Medical; Admitting Provider Surgery; Emergency Provider Emergency Medicine; PCP Internal Medicine; Visit Provider Surgery
DX: K51.912 Ulcerative colitis, unspecified with intestinal obstruction (principal); E11.9 Type 2 diabetes mellitus without complications; N32.81 Overactive bladder; I10 Essential (primary) hypertension; F39 Unspecified mood [affective] disorder; E78.5 Hyperlipidemia, unspecified; G43.909 Migraine, unspecified, not intractable, without status migrainosus; J44.9 Chronic obstructive pulmonary disease, unspecified; D69.6 Thrombocytopenia, unspecified; Z87.891 Personal history of nicotine dependence; Z79.01 Long term (current) use of anticoagulants; Z79.85 Long-term (current) use of injectable non-insulin antidiabetic drugs; Z79.899 Other long term (current) drug therapy
CPT/HCPCS: 36415; 71045; 74022; 74177; 80048; 80053; 81001; 81003; 82947; 83605; 83690; 83735; 85025; 85027; 87040; 87493; 87507; 94640; 99285; J2270; J2405; J7120; Q9967

== ENCOUNTER → 2025-02-08 23:34 | Outpatient (BNV) | payer OTHER, SELFPAY | PROVIDERS: Emergency Provider Emergency Medicine; PCP Internal Medicine; Visit Provider Radiology Diagnostic Radiology | DX: K56.609 Unspecified intestinal obstruction, unspecified as to partial versus complete obstruction (principal) | CPT/HCPCS: 74022 ==

== ENCOUNTER → 2025-02-09 03:15 | Outpatient (BNV) | payer OTHER, SELFPAY | PROVIDERS: Emergency Provider Emergency Medicine; PCP Internal Medicine; Visit Provider Radiology Diagnostic Radiology | DX: K56.600 Partial intestinal obstruction, unspecified as to cause (principal); Z45.89 Encounter for adjustment and management of other implanted devices | CPT/HCPCS: 71045; 74177 ==

== ENCOUNTER → 2025-02-09 06:50 | Outpatient (BNV) | payer OTHER, SELFPAY | PROVIDERS: Admitting Provider Surgery; Emergency Provider Emergency Medicine; PCP Internal Medicine; Visit Provider Physician Assistant Medical | DX: K56.609 Unspecified intestinal obstruction, unspecified as to partial versus complete obstruction (principal); E11.9 Type 2 diabetes mellitus without complications | CPT/HCPCS: 99223; 99232 ==

== ENCOUNTER → 2025-02-09 06:50 | Outpatient (BNV) | payer OTHER, SELFPAY | PROVIDERS: Admitting Provider Surgery; Emergency Provider Emergency Medicine; PCP Internal Medicine; Visit Provider Surgery | DX: E11.9 Type 2 diabetes mellitus without complications (principal) | CPT/HCPCS: 99222; 99232; 99238; 99499 ==

== ENCOUNTER 2025-02-24 15:04 | Outpatient (AMB) | payer OTHER, SELFPAY ==
--- OUTSIDE RECORDS SUMMARY | 2024-11-19 09:00 | XMS_ITS ---
Author Organization [facility] Address [address] [place] [address] Care Team Providers Care Acid Regenerator Name Role Phone Teresa ELLIS, Shelli Primary Care Provider Unavail Juany Wong Unavailable [phone] Encounters Encounter Location Date Provider Diagnosis [address] [address] 11/19/2024 Juany Munson Plan Of Treatment Next Appt Details Provider Name:Juany luna, 04/12/2025 10:00:00 AM, [address] [place] [address], [address], Progress Notes * Huber MUNOZArianaOB: (64 yo M)Acc No.[id number]:11/19/2024 Progress Note Patient: Kali GORDILLO Provider: Paula Munson DPM :1960 A ge:64 Y S ex:Male Date:11/19/2024 Address:[address] [place], [place] Pcp:Shelli Moore MD Subjective: * Chief Complaints: [...] 0 11/19/2024 Generated for Tiesha Pryor/Kirk on: 0 02/24/2025 03:45 PM EDT
--- NOTE | 2025-02-24 15:09 | MHC.PC.OV ---
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: No Accompanied by: Self / Same As Patient Allergies Penicillins (PENICILLINS) Allergy (Unknown, Verified 02/24/25 15:28) ANAPHYLAXIS Medication List - Last Reconciled 02/24/25 by Shelli Bartlett MD [adjustable bed rail As directed] albuterol sulfate 2.5 mg inhalation Q6H PRN atorvastatin 20 mg PO BEDTIME 90 days [bath mat As directed] blood sugar diagnostic (FreeStyle Lite Strips) Use daily As directed to check blood glucose blood-glucose meter (FreeStyle Lite Meter kit) Use daily As directed to check blood sugars bupropion HCl XL 150 mg PO DAILY clonazepam 1 mg PO BEDTIME clonazepam 0.5 mg PO DAILY clotrimazole-betamethasone 1-0.05 % 1 appl topical BID PRN dexlansoprazole 60 mg PO DAILY 90 days diclofenac sodium 3% 1 appl topical BID PRN 30 days dicyclomine 20 mg PO BID PRN docusate sodium (Colace) 100 mg PO BID PRN dulaglutide (Trulicity) 1.5 mg subcut BEEBE escitalopram oxalate (Lexapro) 10 mg PO DAILY fluticasone propionate 50 mcg/actuation 2 sprays intranasal DAILY PRN Incruse Ellipta 62.5 mcg/actuation (umeclidinium) 1 inh PO DAILY NS lancets (FreeStyle Lancets) use daily as directed to check blood glucose mesalamine 2.4 grams PO DAILY PRN montelukast 10 mg PO DAILY [id number] mcg (Centrum Silver Men) 1 tab PO DAILY oxybutynin chloride ER 10 mg PO DAILY 90 days polyvinyl alcohol 1.4% (Artificial Tears (polyvinyl alcohol)) 1 drp ophthalmic (eye) QID PRN propranolol ER 80 mg PO BID rivaroxaban (Xarelto) 20 mg PO DAILY [shower head As directed] sumatriptan succinate 50 mg PO DAILY PRN triamcinolone acetonide 0.1% 1 appl topical TID PRN Ventolin HFA 90 mcg/actuation (albuterol sulfate) 2 puffs PO QID PRN NS Tobacco use date assessed: 02/24/25 Fall risk assessment: No Falls in past year Last assessed Fall Risk: 02/24/25 Dental Screening Dental Screen Date: 02/24/25 Did you have a dental visit in the last 12 months?: No Did you have a dental problem in the last 6 months where you did not have access to dental care?: No Was dental information given to patient?: No HPI TCM TCM Information Date of Discharge 02/14/25 Discharged From [facility] Interactive Contact Date (Reference documentation from this date) 02/24/25 HPI Comments History of Present Illness Details The patient is a 64-year-old male presenting with symptoms of diarrhea and abdominal distension, leading to a diagnosis of small bowel obstruction. He has a history of multiple bowel surgeries and was admitted to the surgical service where the obstruction resolved with bowel rest and nasogastric tube placement. The patient has a history of Chronic Obstructive Pulmonary Disease (COPD), ulcerative colitis, diabetes mellitus, and hyperlipidemia. His diabetes is well-controlled with Trulicity, and his last A1c was 5.8% in January 14. He also experiences depression and anxiety, managed with bupropion and clonazepam, respectively, under psychiatric care. The patient reports lactose intolerance, which he manages by consuming lactose-free milk. In 2018, he underwent surgery for a hernia and twisted intestine, which was identified after experiencing severe abdominal pain and frequent bowel movements during a trip. Complains of left foot pain and would like to see Podiatry. Also has occasional fecal incontinence due to ulcerative colitis and will need diapers. [facility] Medical History (Updated 02/24/25 @ 15:51 by Shelli Bartlett MD) Physical exam Incisional hernia (10/12/24) Hepatitis Seasonal allergies Cough Hx of influenza Congestion of nasal sinus Type 2 diabetes mellitus OAB (overactive bladder) Hyperlipidemia LDL goal <70 Abdominal wall hernia Personal history of nicotine dependence History of COVID-19 Obesity (BMI 30-39.9) Insomnia COPD (chronic obstructive pulmonary disease) Allergic rhinitis Ulcerative colitis Surgical History Umbilical hernia Hx of tonsillectomy History of incisional hernia repair History of cervical spinal surgery History of colonoscopy History of appendectomy (~2008) History of esophagogastroduodenoscopy (EGD) Family History Father Diabetes HTN (hypertension) Heart attack Mother Skin cancer HTN (hypertension) Diabetes Paternal Aunt Heart attack Sister Skin cancer Social History Household Members: Spouse [facility] Are you a primary lawn caretaker to a significant other at home: No Do you presently have visiting nurse or other home services: Yes Alcohol intake: never Patient Tobacco Use Status: Former Tobacco user Tobacco use type: Cigarette Years Smoked: (former smoker - onset 15yo, 1ppd x 36yrs, 35pyh, quit 2011) e-Cigarette/Vaping Use: Never Used Second Hand Smoke Exposure: No Substance Use Type: Marijuana service: No Current occupational status: retired Cognitive needs: No Hearing needs: No Vision needs: No Questionnaire PHQ-9 Over the last 2 weeks, how often have you been bothered by any of the following problems? 1. Little interest or pleasure in doing things: several days 2. Feeling down, depressed, or hopeless: several days 3. Trouble falling or staying asleep, or sleeping too much: more than half the days 4. Feeling tired or having little energy: several days 5. Poor appetite or overeating: several days 6. Feeling bad about yourself - or that you are a failure or have let yourself or your family down: several days 7. Trouble concentrating on things, such as reading the newspaper or watching television: several days 8. Moving or speaking so slowly that other people could have noticed. Or the opposite - being so fidgety or restless that you have been moving around a lot more than usual: several days 9. Thoughts that you would be better off or of hurting yourself in some way: not at all Total score: 9 Depression Screening Interpretation: Positive Depression Screening Follow-up: Existing condition, In treatment, Community Mental Health Worker F/U and Follow-up Visit Requested Depression Screening Done: Yes 38462 - PHQ-9 Billing: Yes Source: Developed by Zaria WildeW. 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 Thrive Questionnaire Date Thrive assessed: 02/24/25 I am a: Patient What is your living situation today?: I have a steady place to live Within the past 12 months, did the food you bought not last and you didn't have the money to get more?: Often true Within the past 12 months, did you worry whether your food would run out before you got money to buy more?: Often true Do you have trouble paying for medicines?: No Do you have trouble getting transportation to medical appointments?: No Do you have trouble paying your heating and electricity bill?: Yes Do you have trouble taking care of your child, family member or friend?: I choose not to answer this question Do you have trouble with day-to-day activities such as bathing, preparing meals, shopping, managing finances, etc.?: Yes Are you currently unemployed and looking for a job?: I choose not to answer this question Are you interested in more education?: Yes Please select the resources that you would like help with: Food Currently or been in a relationship where the following occur: No concerns reported THRIVE Score: 3 AUDIT C Alcohol Use Questionnaire (AUDIT-C) 1. How often do you have a drink containing alcohol?: Never Total Score: 0 Score Reviewed/Action Taken: No KRZYSZTOF-7 AMB Questionnaire KRZYSZTOF-7 Date KRZYSZTOF - 7 assessed: 02/24/25 Feeling nervous, anxious, or on edge: 1 = Several days Not being able to stop or control worryin = Several days Worrying too much about different things: 1 = Several days Trouble relaxin = Several days Being so restless that it is hard to sit still: 1 = Several days Becoming easily annoyed or irritable: 1 = Several days Feeling afraid as if something awful might happen: 1 = Several days Total KRZYSZTOF-7 score (0-4 normal; 5-9 mild; 10-14 moderate; 15-21 severe): 7 Source: Developed by Drs. 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 KRZYSZTOF-7 Assessment Billing KRZYSZTOF-7 Assessment Tool: KRZYSZTOF-7 Assessment 94579 Review of Systems Const All systems reviewed & are unremarkable except as noted in HPI and below Card Denies chest pain at rest, Denies chest pain with activity, Denies edema, Denies irregular heart rhythm, Denies claudication, Denies dyspnea, Denies dyspnea on exertion, Denies orthopnea, Denies paroxysmal nocturnal dyspnea and Denies slow heart rate Resp Denies cough, Denies dyspnea and Denies dyspnea on exertion GI Denies abdominal pain, Denies change in bowel habits, Denies excessive flatus, Denies nausea and Denies vomiting Denies urinary hesitancy, Denies urinary incontinence and Denies urinary urgency Physical exam (Primary Care) Vital Signs: Last Vital Signs Temp 97.3 F 02/24/25 15:10 Pulse 82 02/24/25 15:10 Resp 18 02/24/25 15:10 BP 108/70 02/24/25 15:10 Pulse Ox 96 02/24/25 15:10 Oxygen Delivery Method Room Air 02/24/25 15:10 BMI result Body Mass Index 29.1 Tobacco/Smoking Status: Tobacco use Status Tobacco use date assessed 02/24/25 02/24/25 15:22 Patient Tobacco Use Status Former Tobacco user 02/24/25 15:11 Tobacco use type Cigarette 02/24/25 15:11 e-Cigarette/Vaping Use Never Used 02/24/25 15:11 PHQ-9: PHQ-9 Score PHQ-9: Total score 9 02/24/25 15:29 Depression Screening Interpretation: Positive Depression Screening Follow-up: Existing condition, In treatment, Community Mental Health Worker F/U and Follow-up Visit Requested Thrive Assessment: Date of Thrive Assessment Date Thrive assessed 02/24/25 02/24/25 15:22 Currently or been in a relationship where the following occur: No concerns reported Resp Effort & Inspection: normal respiratory effort Auscultation: clear to auscultation bilaterally Cardio Jugular venous distension: no JVD Rate: regular rate Rhythm: regular rhythm Heart sounds: S1 normal heart sound present and S2 normal heart sound present GI Inspection: Yes normal to inspection Palpation (GI): Soft to palpation and nontender Auscultation: normal bowel sounds Extrem General: Yes full ROM Coding Level of Care Code TCM Mod MDM <= 14 Days Complex EM visit Add On G2211 Diagnoses Controlled type 2 diabetes mellitus E11.9 Mild major depression F32.0 Small bowel obstruction K56.609 Dyslipidemia E78.5 Ulcerative colitis K51.90 Panlobular emphysema J43.1 COPD type: emphysema Emphysema type: panlobular Left foot pain M79.672 Additional Codes KRZYSZTOF-7 Assessment Billing - KRZYSZTOF-7 Assessment Tool: KRZYSZTOF-7 Assessment 57348 ([id number]) PHQ-9 - 01474 - PHQ-9 Billing: Yes ([id number]) Time Spent (min) 29 Assessment & Plan Assessment & Plan (1) Controlled type 2 diabetes mellitus: Code(s): E11.9 - Type 2 diabetes mellitus without complications Category: Medical (2) Mild major depression: Code(s): F32.0 - Major depressive disorder, single episode, mild Category: Medical (3) Small bowel obstruction: Code(s): K56.609 - Unspecified intestinal obstruction, unspecified as to partial versus complete obstruction Category: Medical (4) Dyslipidemia: Code(s): E78.5 - Hyperlipidemia, unspecified Category: Medical (5) Ulcerative colitis: Code(s): K51.90 - Ulcerative colitis, unspecified, without complications Category: Medical (6) COPD (chronic obstructive pulmonary disease): Comment: Moderate degree of chronic obstructive pulmonary disease, ., SEC TO PAST h/o SMOKING STABLE AT THIS TIME. HE CLAIMS THAT HIS BREATHING IS MUCH BETTER ESPECIALLY SINCE HE HAS LOST SOME WEIGHT. Code(s): J44.9 - Chronic obstructive pulmonary disease, unspecified Category: Medical Qualifiers: COPD type: emphysema Emphysema type: panlobular Qualified Code(s): J43.1 - Panlobular emphysema (7) Left foot pain: Code(s): M79.672 - Pain in left foot Category: Medical Plan Plan Patient was informed and verbally consented to the use of an ambient scribe for clinic note documentation during this visit. 1. Unspecified intestinal obstruction, unspecified as to partial versus complete obstruction K56.609 HCC 33 The patient was admitted to the surgical service for small bowel obstruction, which resolved with bowel rest and nasogastric tube placement. He is tolerating a liquid diet and was planned for discharge. 2. Type 2 diabetes mellitus without complications E11.9 HCC 19 The patient's diabetes is well-controlled with Trulicity, and his last A1c was 5.8% in January 14. 3. Depression, unspecified F32.A The patient is managed with bupropion for depression under psychiatric care. 4. Anxiety disorder, unspecified F41.9 The patient is managed with clonazepam for anxiety under psychiatric care. 5. Ulcerative colitis, unspecified, without complications K51.90 HCC 35 6. Hyperlipidemia, unspecified E78.5 Continue statins. 7. Essential (primary) hypertension I10 Continue same meds. 8. Chronic obstructive pulmonary disease, unspecified J44.9 HCC 111 Follow-up with pulmonology. Orders: Orders Microalbumin, Random (w Creat) 5 Months R80.9 - Proteinuria, unspecified Lipid Panel 5 Months E78.5 - Hyperlipidemia, unspecified Comprehensive [place]. Panel Fast 5 Months E11.8 - Type 2 diabetes mellitus with unspecified complications Referrals Podiatry Referral M79.672 - Pain in left foot Medications: New [adult diapers] As directed 240 ea 11RF K51.90 - Ulcerative colitis, unspecified, without complications, R15.9 - Full incontinence of feces [flip pillow] As directed 1 ea 0RF M54.12 - Radiculopathy, cervical region
[2025-02-24 15:10] VITALS: BP 108/70; PULSE 82; RESP 18; TEMP 36.3; O2SAT 96; BMI 29.1
--- OUTSIDE RECORDS SUMMARY | 2025-02-24 15:45 | XMS_ITS | Clinical Summary ---
Author Organization [employer] Address [address] [place] [address] Care Team Providers Care Orthopedic Mechanic Name Role Phone Unavailable Primary Care Provider [...] 1 tablet in the evening. 8 Active mesalamine (Lialda) 1.2 g EC tablet Take 2.4 g by mouth in the morning. 3 Active escitalopram (Lexapro) 10 MG tablet Take 10 mg by mouth in the morning. 2 Active propranolol LA (Inderal LA) 80 MG 24 hr capsule Take 80 mg by mouth 2 times daily. 3 Active tolterodine LA (Detrol LA) 4 [...] triamcinolone (Kenalog) 0.1 % cream 3 Active Incruse Ellipta 62.5 MCG/ACT aerosol powder INHALE 1 PUFF BY MOUTH DAILY 3 Active amitriptyline (Elavil) 25 MG tablet Take 25 mg by mouth at bedtime. 2 Active Lancets (OneTouch Delica Plus Honlqd78Y) misc USE ONCE DAILY 3 Active OneTouch [...] per day. Take with food. 4 Active ciclopirox (Loprox) 0.77 % cream APPLY TOPICALLY TO THE AFFECTED AREA TWICE DAILY Active docusate sodium (Colace) 100 MG capsule Take 1 capsule by mouth 2 times daily. 5 Active doxycycline (Vibra-Tabs) 100 MG tablet TAKE 1 TABLET BY MOUTH TWICE DAILY FOR 10 DAYS FOR BRONCHITIS Active Trulicity 1.5 MG/0.5ML solution auto-injector ADMINISTER 1.5 MG UNDER THE SKIN EVERY WEEK Active fluticasone (Flonase) 50 MCG/ACT nasal spray SHAKE LIQUID AND USE 2 SPRAYS IN EACH NOSTRIL DAILY FOR ALLERGIC RHINITIS Active oxyCODONE-aceta minophen (Percocet) 5-325 MG tablet Take 1 tablet by mouth every 6 (six) hours if needed for pain. 5 Active polyvinyl alcohol (Liquifilm Tears) 1.4 % ophthalmic solution PLACE 1 DROP IN EACH EYE FOUR TIMES DAILY Active buPROPion XL (Wellbutrin XL) 150 MG 24 hr tablet Take 1 tablet by mouth Once per day. 5 Active metFORMIN XR (Glucophage-XR) 500 MG 24 hr tablet Take 1 tablet by mouth Once per day. 5 Active tadalafil (Cialis) 5 MG tablet Take 1 tablet by mouth Once per day. Active Active Problems Problem Noted Date Diagnosed Date Open fracture of tooth 02/13/2024 Fractured dental cheondoism with loss of materi al 02/02/2024 Diabetes [...] Obesity 11/04/2017 Opioid dependence in remission 11/04/2017 Immunizations Immunization Administration Dates Next Due Influenza injectable quadriv [...] Care Team (Late st Contact Info) Description 04/29/2025 2:00 PM EDT Office Visit [facility] [address] [place] [address] Saniya Veliz, OD [address] [place] [address] Health Maintenance Due Date Last Done Comments Anal Pap 1960 CT Colonography 1960 Colonoscopy 1960 Colorectal Cancer Screening 1960 Depression Screening 1960 Diabetes: Hemoglobin A1C 1960 FIT DNA/Cologuard 1960 FIT 1960 FOBT 1960 HIV Screening 1960 Lipid Panel 1960 SDOH Screening 1960 Sigmoidoscopy 1960 Disability Screening 1960 Diabetes: Foot Exam 1970 Alcohol/Substance Use [...] Vaccine ( season) 2024 08/22/2022, 06/21/2021, 10/04/2020 Dental Oral Exam 07/10/2024 01/07/2024, 08/26/2022 Dental Prophylaxis 07/10/2024 01/07/2024, 09/20/2022 Dental X-Ray: Bitewings 01/07/2025 01/07/2024, 08/26 Influenza Vaccine (#1) 2025 , 04/22/2022, 04/20/2021, Additional history exists Dental X-Ray: Full Mouth 08/27/2025 08/26/2022 Tobacco Screening 11/17/2025 11/17/2024 Eye Exam 10/27/2026 10/27/2024, 04/01, 04/28/2024, Additional history exists DTaP/Tdap/Td Vaccines (3 - Td or Tdap) 10/25/2034 10/25/2024, 12/04/2014 Zoster Vaccines Completed 01/11/2020, 06/11/2019 Pneumococcal Vaccine: 50+ Years Completed 11/07/2022, 02/23/2018 HIB Vaccines Aged Out No longer eligi ble based on patient's age to complete this topic HPV Vaccines Aged Out No longer eligi ble based on patient's age to complete this topic IPV Vaccines Aged Out No longer eligi ble based on patient's age to complete this topic Meningococcal B Vaccine Aged Out No l onger eligible based on patient's age to complete [...] Most Recently Relevant to Health Maintenance Insurance [facility] 65 [facility]
--- OUTSIDE RECORDS SUMMARY | 2025-02-24 15:45 | XMS_ITS | Clinical Summary ---
Author Organization [facility] Address [address] [place] [id number] Phone Care Team Providers Care Drywall Taper Name Role Phone Shelli Kwan MD Primary [...] season) 2024 Adult Td,Tdap Booster 12/04/2024 12/04/2014 INFLUENZA VACCINE (#1) 2025 RSV VACCINE (1 - 1-dose 75+ series) [...] topic Medical Devices Not on file Insurance [facility] MEDICARE REPLACEMENT MEDICARE PART A & B [facility] MEDICARE REPLACEMENT MEDICARE PART A & B Member Subscriber Plan / Payer (Ef fective 2023-Present) Name:Kali Kelly Member ID:[id number] Relation to Subscriber:Self Name:Kali Kelly Subscriber ID:[id number] Payer ID:[id number] Group ID:Not on file Type:Medicare Address: [employer]. [address] [facility] MEDICARE REPLACEMENT MEDICARE PART A & B [facility] MEDICARE REPLACEMENT MEDICARE PART A & B Member Subscriber Plan / Payer (Ef fective 2023-Present) Name:Kali Kelly Member ID:[id number] Relation to Subscriber:Self Name:Kali Kelly Subscriber ID:[id number] Payer ID:[id number] Group ID:Not on file Type:Medicare Address: [employer] [address] [facility] MEDICARE REPLACEMENT MEDICARE PART A & B [facility] MEDICARE REPLACEMENT MEDICARE PART A & B Care Teams Drywall Taper Relationship Specialty Start Date End Date Shelli Kwan MD [address] [place] [address] PCP - General Internal Medicine 08/01/23 Additional Source Comments The information contained in this document represents components of the legal health record. It is not the complete legal health record.[facility]
--- OUTSIDE RECORDS SUMMARY | 2025-02-24 15:45 | XMS_ITS | Encounter Summary ---
Author Organization [facility] Address [address] [place] [address] Encounters * CPT with Medical instED at [employer] on 2025-02-09 { reasonForRequest : Pt reporting having diarrhea since last night through today, which has been causing abdominal pain , patientReports : Vague abdominal pain greater than 24 hours; Diarrhea ??? no blood in stool; Inability to tolerate foods, fluids or daily medications , denies :[ Sharp focal or diffuse abdominal pain , Vomiting blood/coffee ground material , Bloating, jaundice new onset with pain , Nausea and vomiting greater than 2 hours with abdominal pain , Tearing pain that radiates to back", Food Impaction , Constipation , Nausea with or without vomiting ], chiefComplaints : Diarrhea , pmh : Diabetes Mellitus Type 2, Sleep Apnea, Inflammatory Bowel Disease (Crohn's Disease, Ulcerative Colitis), Appendectomy, Hernia Repair, Chronic Obstructive Pulmonary Disease (COPD) , allergies : Penicillins&qu ot;, otherAllergies :null, painAssessment : , visitOutcome : , additionalComments : 64 y.o male complains of Diarrhea\nPatient stated symptoms started last night\nlast night stomach started with hyperactive bowel sounds and gas\nDiarrhea started 12 times since night no visible and also has hiccups.\ndenies any nausea or vomiting but states everything he eats or drinks goes right through him.\ndenies any fever endorses chills, fatigue, and weakness\ncomplains of mild discomfort in the upper abdomen a bit of bloating\nhx of hernia repair mesh- 6 weeks ago. - no issues had constipation at first but nothing now. \npatient does not have anything to try to make him feel better. \nrequesting insted visit.\n\n\n\nI provided information on the mobile health provider response time and advised the patient and/or caregiver to monitor reported signs and symptoms. I discussed the warning signs of when to seek emergency care. } Dispatched to the call address for the male with diarrhea. Pt states he had hernia repair surgery afew weeks ago and everything has been fine but this morning he woke up with diarrhea and has had many episodes of it. He states he cannot eat or drink anything without having to run to the bathroom afew moments later. He denies black or blood stools, chest pain, diff breathing, cough, fever or other complaints at this time. He describes it as yellowish and oily appearing and with a very pungent smell, worse then regular diarrhea. Pt has not been on any abx recently. Pt was found opening door, CAOx4, airway open and patent, breathing non labored, able to speak in full sentences, -JVD, -HEENT, skin PWD with good turgor, mucous membranes pink and moist, pupils PERRL, abd soft non distended/tender, +CMSx4, afebrile, -edema/swelling, faint odor emanating from bathroom consistent with known C-diff infections from prior experience. Diarrhea Pt was assessed. C consulted. ED advised for further work up and possible treatment. Pt agreeable. 911 called for the Pt, I remained on scene until EMS arrived. Pt transfer of care and report givento EMS crew. Pt transported to [facility]. ALL times are approx. IV_(FLUIDS_AND/OR_MEDICATION), POC_BLOODWORK, ORTHOSTATIC_VITAL_SIGNS, PO_MEDICATION Written by Medical instED on 2025-02-09
--- OUTSIDE RECORDS SUMMARY | 2025-02-24 15:45 | XMS_ITS | Continuity of Care Document ---
Author Name instED, Medical Address [address] [place] [address] Organization Unknown Address [address] [place] [address] Medications No known medications Problems No known problems
--- OUTSIDE RECORDS SUMMARY | 2025-02-24 15:45 | XMS_ITS | Patient Health Record ---
Author Organization [facility] Address [address] [facility] [place] [address] Care Team Providers Care Grease Machine Worker Name Role Phone Shelli Moore MD Primary Care Provider Unavail able Juany Munson Unavailable [phone] Allergies Allergen (clinical drug ingredient) Drug/Non Drug [...] Active Proctosol HC 2.5 % 1 application Security System Engineer ally Twice a day Active Escitalopram Oxalate [...] Problem Acquired hammer toe of right foot (5782982075387417 ) Other hammer toe(s) (acquired), right foot (M20.41) Active confirmed Problem Acquired hammer toe of left foot (9962898127476005 ) Other hammer toe(s) (acquired), left foot (M20.42) Active confirmed Problem Plantar wart of left foot (7813842476765990 2) Plantar wart (B07.0) Active confirmed Problem Polyneuropathy due to diabetes mellitus (34608602) Type 2 diabetes mellitus with polyneuropathy (E11.42) Active confirmed Vital Signs Blood pressure diastolic 70 mm Hg 01/21/2025 Height 5ft9in in 01/21/2025 Blood pressure systolic 119 mm Hg 01/21/2025 Weight 204 lbs 01/21/2025 BMI 30.12 kg/m2 01/21/2025 Encounters Encounter Location Date Provider Diagnosis [facility] [address] [place] [address] 04/01/2024 Juany Perica Tinea pedis of both feet B35.3 ; Tinea unguium B35.1 ; Type 2 diabetes mellitus with polyneuropathy E11.42 ; Plantar wart B07.0 and Pain in left foot M79.[address] [address] 06/15/2024 Juany Perica Tinea pedis of both feet B35.3 ; Tinea unguium B35.1 ; Type 2 diabetes mellitus with polyneuropathy E11.42 ; Plantar wart B07.0 and Pain in left foot M79.[address] [address] 09/01/2024 Juany Perica Tinea pedis of both feet B35.3 ; Other hammer toe(s) (acquired), right foot M20.41 ; Tinea unguium B35.1 ; Type 2 diabetes mellitus with polyneuropathy E11.42 ; Plantar wart B07.0 ; Pain in left foot M79.672 and Other hammer toe(s) (acquired), left foot M20.[address] [address] 01/21/2025 Juany Perica Pain in left foot M79.672 ; Type 2 diabetes mellitus with polyneuropathy E11.42 ; Tinea unguium B35.1 and Plantar wart B07.0 [facility] [address] [address] 11/17/2024 Juany Munson Assessments Encounter Date Diagnosis [...] Provider Name:Juany Mary luna, 04/12/2025 10:00:00 AM, [address] [place] [address], [id number], Insurance Providers Payer Name Payer Address Payer Phone Subscriber Number Group Number Insured Name Patient Relationship to Insured Coverage Start Date Coverage End Date [facility] [employer] SCO Claims [address] [place] [id number] Kali Munoz Self - patient is the insured Medical (General) History Medical History History ICD Code Anxiety Back,Hip,and Knee pain covid-19 Depression Diabetic Headaches/Migraines Hepatitis Hiatal hernia Lung disease Psychiatric disorder Reflux ( GERD) sinusitis COPD Colitis Chicken pox Cholesterol Surgical History Surgery Date(Month/Year) cervical (spine?) surgery 2017 hernia 4906-9204 peritonitis 2019 hernia 10/22
--- OUTSIDE RECORDS SUMMARY | 2025-02-24 15:45 | XMS_ITS | Encounter Summary ---
Author Organization [employer] Address [address] [facility] 7 [place] [address] Care Team Providers Care Yolk Spray Drier Name Role Phone Unavailable Primary Care Provider Unavailabl e Encounter Details Date Type Department Care Team (Late Contact Info) Description 10/08/2022 Abstract [facility] ADULT DENTAL [address] [place] [address] Raymundo, Erum [address] [place] [address] Social History Tobacco Use Types Packs/Day Years [...] Description 04/29/2025 2:00 PM EDT Office Visit [facility] [address] [place] [address] Saniya Veliz, OD [address] [place] [address] documented as of this encounter Visit Diagnoses Not on filedocumented in this encounter
== END 2025-02-24 15:48 | disposition home or self-care (01) ==
LOC: HO.HMCH 15:05
PROVIDERS: PCP Internal Medicine; Visit Provider Internal Medicine
DX: E11.69 Type 2 diabetes mellitus with other specified complication (principal); K56.609 Unspecified intestinal obstruction, unspecified as to partial versus complete obstruction; K51.90 Ulcerative colitis, unspecified, without complications; J43.1 Panlobular emphysema; F32.0 Major depressive disorder, single episode, mild; E78.5 Hyperlipidemia, unspecified; M79.672 Pain in left foot

== ENCOUNTER → 2025-02-24 15:04 | Outpatient (BNVA) | payer OTHER, SELFPAY | PROVIDERS: PCP Internal Medicine; Visit Provider Internal Medicine | DX: R14.0 Abdominal distension (gaseous) (principal); R19.7 Diarrhea, unspecified; J44.9 Chronic obstructive pulmonary disease, unspecified; K51.90 Ulcerative colitis, unspecified, without complications; E78.5 Hyperlipidemia, unspecified; F41.9 Anxiety disorder, unspecified; F32.0 Major depressive disorder, single episode, mild; K56.609 Unspecified intestinal obstruction, unspecified as to partial versus complete obstruction; J43.1 Panlobular emphysema; M79.672 Pain in left foot; I10 Essential (primary) hypertension; R80.9 Proteinuria, unspecified; E11.8 Type 2 diabetes mellitus with unspecified complications; M54.12 Radiculopathy, cervical region; Z79.899 Other long term (current) drug therapy | CPT/HCPCS: 96127; 99495 ==

== ENCOUNTER 2025-03-08 14:00 | Outpatient (AMB) | payer OTHER, SELFPAY ==
--- OUTSIDE RECORDS SUMMARY | 2024-04-06 05:30 | XMS_ITS ---
Author Organization [facility] Address [address] [place] [address] Care Team Providers Care General Accounting Manager Name Role Phone Shelli Moore MD Primary Care Provider Unavail able Juany Munson Unavailable [phone] REASON FOR VISIT seen 04/01/2024 Encounters Encounter Location Date Provider Diagnosis [address] [address] 04/06/2024 Juany Munson Plan Of Treatment Next Appt Details Provider Name:Juany luna, 04/12/2025 10:00:00 AM, [address] [place] [address], [phone], Progress Notes * Huber MUNOZArianaOB: (64 yo M)Acc No.[id number]:04/06/2024 Progress Note Patient: Kali GORDILLO Provider: Paula Munson DPM :1960 A ge:63 Y S ex:Male Date:04/06/2024 Address:[address] [place] Pcp:Shelli Moore MD Subjective: * Chief Complaints: [...] Date: Generated for Tiesha rodriguez/Pan/Kirk on: 0 03/08/2025 04:40 PM EDT
--- OUTSIDE RECORDS SUMMARY | 2024-11-19 09:00 | XMS_ITS ---
Author Organization [facility] Address [address] [place] [address] Care Team Providers Care Astro Technician Name Role Phone Teresa ELLIS, Shelli Primary Care Provider Unavail Juany Wong Unavailable [phone] Encounters Encounter Location Date Provider Diagnosis [address] [address] 11/19/2024 Juany Munson Plan Of Treatment Next Appt Details Provider Name:Juany luna, 04/12/2025 10:00:00 AM, [address] [place] [address], [address], Progress Notes * Huber MUNOZArianaOB: (64 yo M)Acc No.[id number]:11/19/2024 Progress Note Patient: Kali GORDILLO Provider: Paula Munson DPM :1960 A ge:64 Y S ex:Male Date:11/19/2024 Address:[address] [place] Pcp:Shelli Moore MD Subjective: * Chief Complaints: [...] 11/19/2024 Generated for Tiesha Pryor/Kirk on: 0 03/08/2025 04:40 PM EDT
[2025-03-08 14:03] VITALS: BP 110/60; PULSE 76; O2SAT 96
--- NOTE | 2025-03-08 14:03 | A.OFFVIS_ITS ---
Vital Signs 03/08/25 14:03 Weight 202 lb 13.204 oz BP 110/60 Blood Pressure Location Lt brachial Position Sitting Pulse 76 Pulse Oximetry (%) 96 Oxygen Delivery Method Room Air Intake Visit Reasons: COPD Ground Crewman Aircraft Support Required: Yes Ground Crewman Aircraft Support Services: Ground Crewman Aircraft Support Present Ground Crewman Aircraft Support Name: ID# [id number] Allergies Penicillins (PENICILLINS) Allergy (Unknown, Verified 03/08/25 14:09) ANAPHYLAXIS Medication List - Last Reconciled 03/08/25 by Vianca Lyons MD [adjustable bed rail As directed] [adult diapers As directed] albuterol sulfate 2.5 mg inhalation Q6H PRN atorvastatin 20 mg PO BEDTIME 90 days [bath mat As directed] blood sugar diagnostic (FreeStyle Lite Strips) Use daily As directed to check blood glucose blood-glucose meter (FreeStyle Lite Meter kit) Use daily As directed to check blood sugars bupropion HCl XL 150 mg PO DAILY clonazepam 1 mg PO BEDTIME clonazepam 0.5 mg PO DAILY clotrimazole-betamethasone 1-0.05 % 1 appl topical BID PRN dexlansoprazole 60 mg PO DAILY 90 days diclofenac sodium 3% 1 appl topical BID PRN 30 days dicyclomine 20 mg PO BID PRN docusate sodium (Colace) 100 mg PO BID PRN dulaglutide (Trulicity) 1.5 mg subcut BEEBE escitalopram oxalate (Lexapro) 10 mg PO DAILY [flip pillow As directed] fluticasone propionate 50 mcg/actuation 2 sprays intranasal DAILY PRN Incruse Ellipta 62.5 mcg/actuation (umeclidinium) 1 inh PO DAILY NS lancets (FreeStyle Lancets) use daily as directed to check blood glucose mesalamine 2.4 grams PO DAILY PRN montelukast 10 mg PO DAILY [id number] mcg (Centrum Silver Men) 1 tab PO DAILY oxybutynin chloride ER 10 mg PO DAILY 90 days polyvinyl alcohol 1.4% (Artificial Tears (polyvinyl alcohol)) 1 drp ophthalmic (eye) QID PRN propranolol ER 80 mg PO BID rivaroxaban (Xarelto) 20 mg PO DAILY [shower head As directed] sumatriptan succinate 50 mg PO DAILY PRN triamcinolone acetonide 0.1% 1 appl topical TID PRN Ventolin HFA 90 mcg/actuation (albuterol sulfate) 2 puffs PO QID PRN NS Do you need a note to return to daycare/school/sports/work: No HPI HPI COPD: Details: YUMIKO , 64 YEARS OLD GENTLEMAN IS HERE FOR FOLLOW-UP FOR HIS CHRONIC BRONCHIAL ASTHMA/COPD AND ALLERGIC RHINITIS. HE IS DOING VERY WELL, EXCEPT FOR INTERMITTENT BOUTS OF RUNNY NOSE AND POSTNASAL DISCHARGE. BREATHING REMAINS WELL CONTROLLED, HE USES ALBUTEROL ONLY ONCE IN A WHILE. HAS HAD NO ACUTE EXACERBATIONS. [facility] Medical History Physical exam Incisional hernia (10/12/24) Hepatitis Seasonal allergies Cough Hx of influenza Congestion of nasal sinus Type 2 diabetes mellitus OAB (overactive bladder) Hyperlipidemia LDL goal <70 Abdominal wall hernia Personal history of nicotine dependence History of COVID-19 Obesity (BMI 30-39.9) Insomnia COPD (chronic obstructive pulmonary disease) Allergic rhinitis Ulcerative colitis Surgical History Umbilical hernia Hx of tonsillectomy History of incisional hernia repair History of cervical spinal surgery History of colonoscopy History of appendectomy (~2008) History of esophagogastroduodenoscopy (EGD) Family History Father Diabetes HTN (hypertension) Heart attack Mother Skin cancer HTN (hypertension) Diabetes Paternal Aunt Heart attack Sister Skin cancer Social History Household Members: [facility] Are you a primary disabilities caregiver to a significant other at home: No Do you presently have visiting nurse or other home services: Yes Alcohol intake: never Patient Tobacco Use Status: Former Tobacco user Tobacco use type: Cigarette Years Smoked: (former smoker - onset 15yo, 1ppd x 36yrs, 35pyh, quit 2011) e-Cigarette/Vaping Use: Never Used Second Hand Smoke Exposure: No Substance Use Type: Marijuana service: No Current occupational status: retired Cognitive needs: No Hearing needs: No Vision needs: No Review of Systems Const All systems reviewed & are unremarkable except as noted in HPI and below Eyes Reports no additional complaints ENT Reports nasal congestion and Reports nasal discharge Card Denies chest pain at rest, Denies chest pain with activity, Denies edema, Denies irregular heart rhythm, Denies claudication, Denies dyspnea, Denies dyspnea on exertion, Denies orthopnea, Denies paroxysmal nocturnal dyspnea and Denies slow heart rate Resp Denies cough, Denies dyspnea and Denies dyspnea on exertion GI Denies abdominal pain, Denies change in bowel habits, Denies excessive flatus, Denies nausea and Denies vomiting Denies urinary hesitancy, Denies urinary incontinence and Denies urinary urgency Musc Reports no additional complaints Skin/Breast Reports system reviewed and no additional complaints, except as documented Neuro Reports no additional complaints Psych Reports anxiety and Reports depression Endo Reports no additional complaints Jamie/Lymph Reports no additional complaints Physical Exam Vital Signs: Last Vital Signs Pulse 76 03/08/25 14:03 BP 110/60 03/08/25 14:03 Pulse Ox 96 03/08/25 14:03 Oxygen Delivery Method Room Air 03/08/25 14:03 Const General: comfortable, no acute distress, alert and awake Orientation/consciousness: patient oriented x3 HEENT Head: Yes normal to inspection General nose exam: No nasal polyps present and No nasal discharge present Face and sinus: Yes sinuses nontender Mouth: oropharynx normal Throat: Yes posterior oropharynx normal Eyes General: appearance normal, both eyes and all related structures Neck Neck: Yes normal visual inspection, Yes no lymphadenopathy, Yes trachea midline and Yes no JVD Thyroid: Thyroid normal Chest Chest palpation & inspection: normal inspection of the chest, normal palpation of entire chest wall and no tenderness Resp Other: Percussion note resonant, breath sounds are slightly distant with prolonged expiratory phase, equal on both sides. No wheezes or rhonchi are heard today. Cardio Palpation: normal PMI Rate: regular rate Rhythm: regular rhythm Heart sounds: no gallops and no murmurs GI Palpation (GI): Soft to palpation, nontender, No hepatosplenomegaly present, no masses and Other GI palpation findings present (Abdomen moderately protuberant, due to surgical scar/ventral hernia ) Auscultation: normal bowel sounds Back/Spine/Pelvis Thoracic/Lumbar Spine: thoracic and lumbar spine normal to inspection Skin General skin exam: no rashes or lesions noted Neuro General: patient oriented x3 and no focal motor deficits Cranial nerves: Yes CN's II-XII intact bilaterally Extrem General: Yes normal to inspection, Yes no clubbing, cyanosis or edema and Yes no calf tenderness Psych Appearance: grossly normal and well kempt Speech and movement: Normal speech and movement present Assessment & Plan Assessment & Plan (1) Allergic rhinitis: Comment: Chronic, perineal, allergic type rhinitis, remains controlled. Currently has very little symptoms . Code(s): J30.9 - Allergic rhinitis, unspecified Category: Medical Plan: CONTINUE TO USE MONTELUKAST 10 MG DAILY AND FLONASE-52 SPRAY IN EACH NOSTRIL DAILY (2) COPD (chronic obstructive pulmonary disease): Comment: Moderate degree of chronic obstructive pulmonary disease, ., SEC TO PAST h/o SMOKING STABLE AT THIS TIME. HE CLAIMS THAT HIS BREATHING IS MUCH BETTER ESPECIALLY SINCE HE HAS LOST SOME WEIGHT. Code(s): J44.9 - Chronic obstructive pulmonary disease, unspecified Category: Medical Qualifiers: COPD type: emphysema Emphysema type: panlobular Qualified Code(s): J43.1 - Panlobular emphysema Plan: CONTINUE TO USE INCRUSE ELLIPTA 1 INHALATION DAILY AND ALBUTEROL HFA 2 PUFFS Q 4-6 HOURS ONLY P.R.N. (3) Personal history of nicotine dependence: Comment: (former smoker - onset 15yo, 1ppd x 36yrs, 35pyh, quit 2011) HE DOES SMOKE CANNABIS ONCE A DAY OFF AND ON . Code(s): Z87.891 - Personal history of nicotine dependence Category: Medical Plan: NO FURTHER ACTION NEEDED Coding Level of Care Code Est Pt Level 3 (74358) Diagnoses Allergic rhinitis J30.9 Panlobular emphysema J43.1 COPD type: emphysema Emphysema type: panlobular Personal history of nicotine dependence Z87.891
--- OUTSIDE RECORDS SUMMARY | 2025-03-08 16:40 | XMS_ITS | Patient Health Record ---
Author Organization [facility] Address [address] [place] [address] Care Team Providers Care Aerial Planting And Cultivation Manager Name Role Phone Shelli Moore MD Primary Care Provider Unavail able Juany Munson Unavailable [phone] Allergies Allergen (clinical drug ingredient) Drug/Non Drug [...] Active Proctosol HC 2.5 % 1 application Cash Reconciliation Specialist ally Twice a day Active Escitalopram [...] Problem Acquired hammer toe of right foot (0182489248991969 ) Other hammer toe(s) (acquired), right foot (M20.41) Active confirmed Problem Acquired hammer toe of left foot (1656923518429519 ) Other hammer toe(s) (acquired), left foot (M20.42) Active confirmed Problem Plantar wart of left foot (6328708545835506 2) Plantar wart (B07.0) Active confirmed Problem Polyneuropathy due to diabetes mellitus (17100060) Type 2 diabetes mellitus with polyneuropathy (E11.42) Active confirmed Vital Signs Blood pressure diastolic 70 mm Hg 01/21/2025 Height 5ft9in in 01/21/2025 Blood pressure systolic 119 mm Hg 01/21/2025 Weight 204 lbs 01/21/2025 BMI 30.12 kg/m2 01/21/2025 Encounters Encounter Location Date Provider Diagnosis [facility] [address] [place] [address] 04/01/2024 Juany Perica Tinea pedis of both feet B35.3 ; Tinea unguium B35.1 ; Type 2 diabetes mellitus with polyneuropathy E11.42 ; Plantar wart B07.0 and Pain in left foot M79.[address] [address] 06/15/2024 Juany Perica Tinea pedis of both feet B35.3 ; Tinea unguium B35.1 ; Type 2 diabetes mellitus with polyneuropathy E11.42 ; Plantar wart B07.0 and Pain in left foot M79.[address] [address] 09/01/2024 Juany Perica Tinea pedis of both feet B35.3 ; Other hammer toe(s) (acquired), right foot M20.41 ; Tinea unguium B35.1 ; Type 2 diabetes mellitus with polyneuropathy E11.42 ; Plantar wart B07.0 ; Pain in left foot M79.672 and Other hammer toe(s) (acquired), left foot M20.[address] [address] 01/21/2025 Juany Perica Pain in left foot M79.672 ; Type 2 diabetes mellitus with polyneuropathy E11.42 ; Tinea unguium B35.1 and Plantar wart B07.0 [facility] [address] [address] 11/17/2024 Juany Munson Assessments Encounter Date Diagnosis [...] Provider Name:Juany Mary luna, 04/12/2025 10:00:00 AM, [address] [place] [address], [phone], Insurance Providers Payer Name Payer Address Payer Phone Subscriber Number Group Number Insured Name Patient Relationship to Insured Coverage Start Date Coverage End Date [facility] CCA SCO Claims [address] [place] [id number] Kali Munoz Self - patient is the insured Medical (General) History Medical History History ICD Code Anxiety Back,Hip,and Knee pain covid-19 Depression Diabetic Headaches/Migraines Hepatitis Hiatal hernia Lung disease Psychiatric disorder Reflux ( GERD) sinusitis COPD Colitis Chicken pox Cholesterol Surgical History Surgery Date(Month/Year) cervical (spine?) surgery 2017 hernia 0825-8520 peritonitis 2019 hernia 10/22
--- OUTSIDE RECORDS SUMMARY | 2025-03-08 16:40 | XMS_ITS | Encounter Summary ---
Author Organization [employer] Address [address] [facility] 7 [place] [address] Care Team Providers Care Web Production Assistant Name Role Phone Unavailable Primary Care Provider Unavailabl e Encounter Details Date Type Department Care Team (Late Contact Info) Description 10/08/2022 Abstract [facility] ADULT DENTAL [address] [place] [address] Raymundo, Erum [address] [place] [address] Social History Tobacco Use Types Packs/Day Years [...] Description 04/29/2025 2:00 PM EDT Office Visit [facility] [address] [place] [address] Saniya Veliz, OD [address] [place] [address] documented as of this encounter Visit Diagnoses Not on filedocumented in this encounter
--- OUTSIDE RECORDS SUMMARY | 2025-03-08 16:40 | XMS_ITS | Clinical Summary ---
Author Organization [facility] Address [address] [place] [address] Phone Care Team Providers Care Brick And Tile Making Machine Operator Name Role Phone Shelli Kwan MD Primary [...] EXAM 08/04/2023 URINE MICROALBUMIN/CREATININ E RATIO 08/04/2023 Adult Td,Tdap Booster 12/04/2024 12/04/2014 INFLUENZA VACCINE (#1) 2025 COVID-19 VACCINE ( - 2023-2 5 season) 2025 RSV VACCINE (1 - 1-dose 75+ [...] topic Medical Devices Not on file Insurance [facility] CARE MEDICARE REPLACEMENT MEDICARE PART A & B [facility] CARE MEDICARE REPLACEMENT MEDICARE PART A & B Member Subscriber Plan / Payer (Ef fective 2023-Present) Name:Kali Kelly Member ID:[id number] Relation to Subscriber:Self Name:Kali Kelly Subscriber ID:[id number] Payer ID:[id number] Group ID:Not on file Type:Medicare Address: [employer]. [address] [facility] CARE MEDICARE REPLACEMENT MEDICARE PART A & B [facility] CARE MEDICARE REPLACEMENT MEDICARE PART A & B Member Subscriber Plan / Payer (Ef fective 2023-Present) Name:Kali Kelly Member ID:[id number] Relation to Subscriber:Self Name:Kali Kelly Subscriber ID:[id number] Payer ID:[id number] Group ID:Not on file Type:Medicare Address: [employer] [address] [facility] CARE MEDICARE REPLACEMENT MEDICARE PART A & B [facility] CARE MEDICARE REPLACEMENT MEDICARE PART A & B Care Teams Brick And Tile Making Machine Operator Relationship Specialty Start Date End Date Shelli Kwan MD [address] [place] [address] PCP - General Internal Medicine 08/01/23 Additional Source Comments The information contained in this document represents components of the legal health record. It is not the complete legal health record.[facility]
--- OUTSIDE RECORDS SUMMARY | 2025-03-08 16:41 | XMS_ITS | Clinical Summary ---
Author Organization [employer] Address [address] [facility] 7t [place] [address] Care Team Providers Care Paper Cone Machine Tender Name Role Phone Unavailable Primary Care Provider [...] bedtime. 2 Active Lancets (OneTouch Delica Plus [id number]) misc USE ONCE DAILY 3 Active OneTouch [...] Description 04/29/2025 2:00 PM EDT Office Visit [facility] [address] [place] [address] Saniya Veliz, OD [address] [place] [address] Health Maintenance Due Date Last Done Comments [...] - Risk 60-74 years 1-dose series) 2020 Dental Oral Exam 07/10/2024 01/07/2024, 08/26/2022 Dental Prophylaxis 07/10/2024 01/07/2024, 09/20/2022 Dental X-Ray: Bitewings 01/07/2025 01/07/2024, 08/26 COVID-19 Vaccine ( season) 2025 08/22/2022, 06/21/2021, 10/04/2020 Influenza Vaccine (#1) 2025 , 04/22/2022, 04/20/2021, [...] Most Recently Relevant to Health Maintenance Insurance [facility] < 65 [facility]
== END 2025-03-08 14:17 | disposition home or self-care (01) ==
LOC: HO.HPS 14:01
PROVIDERS: PCP Internal Medicine; Visit Provider Internal Medicine
DX: J30.9 Allergic rhinitis, unspecified (principal); J43.1 Panlobular emphysema; Z87.891 Personal history of nicotine dependence
CPT/HCPCS: 99213

== ENCOUNTER → 2025-03-08 14:00 | Outpatient (BNVA) | payer OTHER, SELFPAY | PROVIDERS: PCP Internal Medicine; Visit Provider Internal Medicine | DX: J43.1 Panlobular emphysema (principal); J30.9 Allergic rhinitis, unspecified; Z87.891 Personal history of nicotine dependence; J44.9 Chronic obstructive pulmonary disease, unspecified | CPT/HCPCS: 99212 ==

== ENCOUNTER 2025-03-10 11:41 | Outpatient (AMB) | payer OTHER, SELFPAY ==
--- OUTSIDE RECORDS SUMMARY | 2024-04-06 05:30 | XMS_ITS ---
Author Organization [facility] Address [address] [place] [address] Care Team Providers Care Home Energy Consultant Supervisor Name Role Phone Shelli Moore MD Primary Care Provider Unavail able Juany Munson Unavailable [phone] REASON FOR VISIT seen 04/01/2024 Encounters Encounter Location Date Provider Diagnosis [address] [address] 04/06/2024 Juany Munson Plan Of Treatment Next Appt Details Provider Name:Juany luna, 04/12/2025 10:00:00 AM, [address] [place] [address], [phone], Progress Notes * Huber MUNOZArianaOB: (64 yo M)Acc No.[id number]:04/06/2024 Progress Note Patient: Kali GORDILLO Provider: Paula Munson DPM :1960 A ge:63 Y S ex:Male Date:04/06/2024 Address:[address] [place] Pcp:Shelli Moore MD Subjective: * Chief Complaints: [...] Date: Generated for Tiesha rodriguez/Pan/Kirk on: 0 03/10/2025 04:03 PM EDT
--- OUTSIDE RECORDS SUMMARY | 2024-11-19 09:00 | XMS_ITS ---
Author Organization [facility] Address [address] [place] [address] Care Team Providers Care Computer Repair Technician Name Role Phone Teresa ELLIS, Shelli Primary Care Provider Unavail Juany Wong Unavailable [phone] Encounters Encounter Location Date Provider Diagnosis [address] [address] 11/19/2024 Juany Munson Plan Of Treatment Next Appt Details Provider Name:Juany luna, 04/12/2025 10:00:00 AM, [address] [place] [address], [address], Progress Notes * Huber MUNOZArianaOB: (64 yo M)Acc No.[id number]:11/19/2024 Progress Note Patient: Kali GORDILLO Provider: Paula Munson DPM :1960 A ge:64 Y S ex:Male Date:11/19/2024 Address:[address] [place] Pcp:Shelli Moore MD Subjective: * Chief Complaints: [...] 11/19/2024 Generated for Tiesha Pryor/Kirk on: 0 03/10/2025 04:03 PM EDT
--- NOTE | 2025-03-10 11:43 | A.OFFVIS_ITS ---
Vital Signs 03/10/25 11:49 Weight 201 lb BP 116/59 L Blood Pressure Location Rt brachial Position Sitting Pulse 71 Intake Visit Reasons: SBO (small bowel obstruction), Diarrhea Intake Note: Patient here to follow up [facility] ED for small bowel obstruction. Patient c/o: reports two new separate hernias, two protruding lumps on abdomen. Family Intervention Specialist Required: Yes Information Interpreted: clinical only (Erika PALOMINO) Accompanied by: Self / Same As Patient Allergies Penicillins (PENICILLINS) Allergy (Unknown, Verified 03/10/25 11:49) ANAPHYLAXIS HPI HPI SBO (small bowel obstruction), Diarrhea: Details: 64-year-old male here for follow-up after hospital admission 2 weeks ago. He had been admitted 2 weeks ago because of the question of partial small-bowel obstruction. He had a CAT scan done showing a small bowel dilatation at that time. He does have a history of laparotomy in [place] in the remote past . He had an NG-tube placed which was removed the day after. He was discharged on hospital day 3. He has good oral intake. He has good bowel functions. He denies any abdominal pain. [facility] Medical History History of small bowel obstruction Physical exam Incisional hernia (10/12/24) Hepatitis Seasonal allergies Cough Hx of influenza Congestion of nasal sinus Type 2 diabetes mellitus OAB (overactive bladder) Hyperlipidemia LDL goal <70 Abdominal wall hernia Personal history of nicotine dependence History of COVID-19 Obesity (BMI 30-39.9) Insomnia COPD (chronic obstructive pulmonary disease) Allergic rhinitis Ulcerative colitis Surgical History Umbilical hernia Hx of tonsillectomy History of incisional hernia repair History of cervical spinal surgery History of colonoscopy History of appendectomy (~2008) History of esophagogastroduodenoscopy (EGD) Family History Father Diabetes HTN (hypertension) Heart attack Mother Skin cancer HTN (hypertension) Diabetes Paternal Aunt Heart attack Sister Skin cancer Social History Household Members: Spouse Housing: Condominium Are you a primary rn progressive care unit to a significant other at home: No Do you presently have visiting nurse or other home services: Yes Alcohol intake: never Patient Tobacco Use Status: Former Tobacco user Tobacco use type: Cigarette Years Smoked: (former smoker - onset 15yo, 1ppd x 36yrs, 35pyh, quit 2011) e-Cigarette/Vaping Use: Never Used Second Hand Smoke Exposure: No Substance Use Type: Marijuana service: No Current occupational status: retired Cognitive needs: No Hearing needs: No Vision needs: No Review of Systems Const Denies chills and Denies fever(s) Card Denies chest pain at rest and Denies dyspnea Resp Denies dyspnea GI Denies abdominal pain and Denies vomiting Physical Exam Const General: comfortable and no acute distress Resp Effort & Inspection: normal respiratory effort Cardio Rate: regular rate GI Palpation (GI): Soft to palpation, not firm, nontender and no guarding Assessment & Plan Assessment & Plan (1) History of small bowel obstruction: Code(s): Z87.19 - Personal history of other diseases of the digestive system Category: Medical Plan: He was admitted for question of small-bowel obstruction last month. His symptoms have resolved. He has good oral intake. He has good bowel functions I explained to him that this episodes small-bowel obstruction likely secondary to adhesions from his previous laparotomy in [place] Also mentioned that he seems to have a recurrent hernia in the epigastric area. His CAT scan from last month does not show this. I will see him again in the office down the line if he wants this evaluated for possible repair again He is comfortable with the plan He says he thinks he is due for his colonoscopy and he will discuss this with his primary care physician. Coding Level of Care Code Est Pt Level 3 (74950) Diagnoses History of small bowel obstruction Z87.19
[2025-03-10 11:49] VITALS: BP 116/59; PULSE 71
--- OUTSIDE RECORDS SUMMARY | 2025-03-10 16:03 | XMS_ITS | Encounter Summary ---
Author Organization [employer] Address [address] [facility] 7 [place] [address] Care Team Providers Care Division Traffic Superintendent Name Role Phone Unavailable Primary Care Provider Unavailabl e Encounter Details Date Type Department Care Team (Late Contact Info) Description 10/08/2022 Abstract [facility] ADULT DENTAL [address] [place] [address] Raymundo, Erum [address] [place] [address] Social History Tobacco Use Types Packs/Day Years [...] Description 04/29/2025 2:00 PM EDT Office Visit [facility] [address] [place] [address] Saniya Veliz, OD [address] [place] [address] documented as of this encounter Visit Diagnoses Not on filedocumented in this encounter
--- OUTSIDE RECORDS SUMMARY | 2025-03-10 16:04 | XMS_ITS | Clinical Summary ---
Author Organization [employer] Address [address] [facility] 7t [place] [address] Care Team Providers Care Drafter Structural Name Role Phone Unavailable Primary Care Provider [...] bedtime. 2 Active Lancets (OneTouch Delica Plus [id number]) misc USE ONCE DAILY 3 Active OneTouch [...] Open fracture of tooth 02/13/2024 Fractured dental orthodoxy with loss of materi al 02/02/2024 Diabetes [...] Description 04/29/2025 2:00 PM EDT Office Visit [facility] [address] [place] [address] Saniya Veliz, OD [address] [place] [address] Health Maintenance Due Date Last Done Comments [...] Most Recently Relevant to Health Maintenance Insurance [facility] < 65 [facility]
--- OUTSIDE RECORDS SUMMARY | 2025-03-10 16:04 | XMS_ITS | Clinical Summary ---
Author Organization [facility] Address [address] [place] [address] Phone Care Team Providers Care Heavy Truck Technician Name Role Phone Shelli Kwan MD Primary [...] topic Medical Devices Not on file Insurance [facility] MEDICARE REPLACEMENT MEDICARE PART A & B [facility] MEDICARE REPLACEMENT MEDICARE PART A & B Member Subscriber Plan / Payer (Ef fective 2023-Present) Name:Kali Kelly Member ID:[id number] Relation to Subscriber:Self Name:Kali Kelly Subscriber ID:[id number] Payer ID:[id number] Group ID:Not on file Type:Medicare Address: [employer] [address] [facility] MEDICARE REPLACEMENT MEDICARE PART A & B [facility] MEDICARE REPLACEMENT MEDICARE PART A & B Member Subscriber Plan / Payer (Ef fective 2023-Present) Name:Kali Kelly Member ID:[id number] Relation to Subscriber:Self Name:Kali Kelly Subscriber ID:[id number] Payer ID:[id number] Group ID:Not on file Type:Medicare Address: [employer] [address] [facility] MEDICARE REPLACEMENT MEDICARE PART A & B [facility] MEDICARE REPLACEMENT MEDICARE PART A & B Care Teams Heavy Truck Technician Relationship Specialty Start Date End Date Shelli Kwan MD [address] [place] [address] PCP - General Internal Medicine 08/01/23 Additional Source Comments The information contained in this document represents components of the legal health record. It is not the complete legal health record.[facility]
--- OUTSIDE RECORDS SUMMARY | 2025-03-10 16:04 | XMS_ITS | Patient Health Record ---
Author Organization [facility] Address [address] [facility] [place] [address] Care Team Providers Care Medical Accounting Clerk Name Role Phone Shelli Moore MD Primary Care Provider Unavail able Juany Munson Unavailable [phone] Allergies Allergen (clinical drug ingredient) Drug/Non Drug [...] Active Proctosol HC 2.5 % 1 application Bleach Liquor Maker ally Twice a day Active Escitalopram Oxalate [...] Problem Acquired hammer toe of right foot (4483145558569479 ) Other hammer toe(s) (acquired), right foot (M20.41) Active confirmed Problem Acquired hammer toe of left foot (9577016088469142 ) Other hammer toe(s) (acquired), left foot (M20.42) Active confirmed Problem Plantar wart of left foot (1682558903241504 2) Plantar wart (B07.0) Active confirmed Problem Polyneuropathy due to diabetes mellitus (71768810) Type 2 diabetes mellitus with polyneuropathy (E11.42) Active confirmed Vital Signs Blood pressure diastolic 70 mm Hg 01/21/2025 Height 5ft9in in 01/21/2025 Blood pressure systolic 119 mm Hg 01/21/2025 Weight 204 lbs 01/21/2025 BMI 30.12 kg/m2 01/21/2025 Encounters Encounter Location Date Provider Diagnosis [facility] [address] [place] [address] 04/01/2024 Juany Perica Tinea pedis of both feet B35.3 ; Tinea unguium B35.1 ; Type 2 diabetes mellitus with polyneuropathy E11.42 ; Plantar wart B07.0 and Pain in left foot M79.[address] [address] 06/15/2024 Juany Perica Tinea pedis of both feet B35.3 ; Tinea unguium B35.1 ; Type 2 diabetes mellitus with polyneuropathy E11.42 ; Plantar wart B07.0 and Pain in left foot M79.[address] [address] 09/01/2024 Juany Perica Tinea pedis of both feet B35.3 ; Other hammer toe(s) (acquired), right foot M20.41 ; Tinea unguium B35.1 ; Type 2 diabetes mellitus with polyneuropathy E11.42 ; Plantar wart B07.0 ; Pain in left foot M79.672 and Other hammer toe(s) (acquired), left foot M20.[address] [address] 01/21/2025 Juany Perica Pain in left foot M79.672 ; Type 2 diabetes mellitus with polyneuropathy E11.42 ; Tinea unguium B35.1 and Plantar wart B07.0 [facility] [address] [address] 11/17/2024 Juany Munson Assessments Encounter Date Diagnosis [...] Provider Name:Juany Mary luna, 04/12/2025 10:00:00 AM, [address] [place] [address], [phone], Insurance Providers Payer Name Payer Address Payer Phone Subscriber Number Group Number Insured Name Patient Relationship to Insured Coverage Start Date Coverage End Date [facility] CCA SCO Claims [address] [employer] [id number] Kali Munoz Self - patient is the insured Medical (General) History Medical History History ICD Code Anxiety Back,Hip,and Knee pain covid-19 Depression Diabetic Headaches/Migraines Hepatitis Hiatal hernia Lung disease Psychiatric disorder Reflux ( GERD) sinusitis COPD Colitis Chicken pox Cholesterol Surgical History Surgery Date(Month/Year) cervical (spine?) surgery 2017 hernia 8121-8777 peritonitis 2019 hernia 10/22
== END 2025-03-10 12:04 | disposition home or self-care (01) ==
LOC: HO.HGS 11:42
PROVIDERS: PCP Internal Medicine; Visit Provider Surgery
DX: Z87.19 Personal history of other diseases of the digestive system (principal)
CPT/HCPCS: 99213

== ENCOUNTER → 2025-03-10 11:41 | Outpatient (BNVA) | payer OTHER, SELFPAY | PROVIDERS: PCP Internal Medicine; Visit Provider Surgery | DX: Z09 Encounter for follow-up examination after completed treatment for conditions other than malignant neoplasm (principal); K56.609 Unspecified intestinal obstruction, unspecified as to partial versus complete obstruction; Z87.19 Personal history of other diseases of the digestive system | CPT/HCPCS: 99212 ==

== ENCOUNTER 2025-03-15 12:55 | Outpatient (AMB) | payer OTHER, SELFPAY ==
--- OUTSIDE RECORDS SUMMARY | 2024-04-06 05:30 | XMS_ITS ---
Author Organization [facility] Address [address] [place] [address] Care Team Providers Care Census Clerk Name Role Phone Shelli Moore MD Primary Care Provider Unavail able Juany Munson Unavailable [phone] REASON FOR VISIT seen 04/01/2024 Encounters Encounter Location Date Provider Diagnosis [address] [address] 04/06/2024 Juany Munson Plan Of Treatment Next Appt Details Provider Name:Juany luna, 04/12/2025 10:00:00 AM, [address] [place] [address], [phone], Progress Notes * Huber MUNOZArianaOB: (64 yo M)Acc No.[id number]:04/06/2024 Progress Note Patient: Kali GORDILLO Provider: Paula Munson DPM :1960 A ge:63 Y S ex:Male Date:04/06/2024 Address:[address] [place] Pcp:Shelli Moore MD Subjective: * Chief Complaints: [...] Paula Munson DPM Date: Generated for Tiesha rodriguez/Pan/Kirk on: 0 03/15/2025 04:52 PM EDT
--- OUTSIDE RECORDS SUMMARY | 2024-11-19 09:00 | XMS_ITS ---
Author Organization [facility] Address [address] [place] [address] Care Team Providers Care Engagement Manager Name Role Phone Teresa ELLIS, Shelli Primary Care Provider Unavail Juany Wong Unavailable [phone] Encounters Encounter Location Date Provider Diagnosis [address] [address] 11/19/2024 Juany Munson Plan Of Treatment Next Appt Details Provider Name:Juany luna, 04/12/2025 10:00:00 AM, [address] [place] [address], [address], Progress Notes * Huber MUNOZArianaOB: (64 yo M)Acc No.[id number]:11/19/2024 Progress Note Patient: Kali GORDILLO Provider: Paula Munson DPM :1960 A ge:64 Y S ex:Male Date:11/19/2024 Address:[address] [place] Pcp:Shelli Moore MD Subjective: * Chief Complaints: [...] 11/19/2024 Generated for Tiesha Pryor/Kirk on: 0 03/15/2025 04:53 PM EDT
--- NOTE | 2025-03-15 12:59 | A.OFFVIS_ITS ---
Vital Signs 3 03/15/25 13:06 Height 5 ft 9 in Weight 211 lb BMI 31.2 Intake Visit Reasons: Pain in left foot Intake Note: Kali is a 64 year old male who presents to the office today as a new patient visit referred by his PCP Dr. Goodrich for pain in his left foot. Pt reports the pain has been going on for 20 years. He mentions that he gets the pain when he stands up and puts weight on his foot and the pain goes up the leg. He also mention that his foot gets week. Medicine Technologist Required: Yes Medicine Technologist Services: Medicine Technologist Present Medicine Technologist Name: [id number] Allergies Penicillins (PENICILLINS) Allergy (Unknown, Verified 03/15/25 13:09) ANAPHYLAXIS Medication List - Last Reconciled 03/15/25 by Zoie Nunez DPM [adjustable bed rail As directed] [adult diapers As directed] albuterol sulfate 2.5 mg inhalation Q6H PRN atorvastatin 20 mg PO BEDTIME 90 days [bath mat As directed] blood sugar diagnostic (FreeStyle Lite Strips) Use daily As directed to check blood glucose blood-glucose meter (FreeStyle Lite Meter kit) Use daily As directed to check blood sugars bupropion HCl XL 150 mg PO DAILY clonazepam 1 mg PO BEDTIME clonazepam 0.5 mg PO DAILY clotrimazole-betamethasone 1-0.05 % 1 appl topical BID PRN dexlansoprazole 60 mg PO DAILY 90 days diclofenac sodium 3% 1 appl topical BID PRN 30 days dicyclomine 20 mg PO BID PRN docusate sodium (Colace) 100 mg PO BID PRN dulaglutide (Trulicity) 1.5 mg subcut BEEBE escitalopram oxalate (Lexapro) 10 mg PO DAILY [flip pillow As directed] fluticasone propionate 50 mcg/actuation 2 sprays intranasal DAILY PRN Incruse Ellipta 62.5 mcg/actuation (umeclidinium) 1 inh PO DAILY NS lancets (FreeStyle Lancets) use daily as directed to check blood glucose mesalamine 2.4 grams PO DAILY PRN montelukast 10 mg PO DAILY [id number] [phone] mcg (Centrum Silver Men) 1 tab PO DAILY oxybutynin chloride ER 10 mg PO DAILY 90 days polyvinyl alcohol 1.4% (Artificial Tears (polyvinyl alcohol)) 1 drp ophthalmic (eye) QID PRN propranolol ER 80 mg PO BID rivaroxaban (Xarelto) 20 mg PO DAILY [shower head As directed] sumatriptan succinate 50 mg PO DAILY PRN triamcinolone acetonide 0.1% 1 appl topical TID PRN Ventolin HFA 90 mcg/actuation (albuterol sulfate) 2 puffs PO QID PRN NS HPI Comments Details: The patient is a 64-year-old male with a past medical history as seen below presenting with left ankle pain. The issue began over 20 years ago following an incident where the patient misstepped from a truck, leading to a significant drop and subsequent ankle injury. The pain has been intermittent but has worsened over the past two weeks, particularly at night and upon standing after rest. The patient reports using Tylenol and ibuprofen for pain management, which provides some relief, and has previously used oxycodone but discontinued it. The patient also reports he mnages his blood sugar levels with Trulicity, reporting stable readings around 120 mg/dL. He denies any recent inciting injuries. Patient denies any other pedal concerns. Denies any current nausea, vomiting, fever, or chills. [facility] Medical History History of small bowel obstruction Physical exam Incisional hernia (10/12/24) Hepatitis Seasonal allergies Cough Hx of influenza Congestion of nasal sinus Type 2 diabetes mellitus OAB (overactive bladder) Hyperlipidemia LDL goal <70 Abdominal wall hernia Personal history of nicotine dependence History of COVID-19 Obesity (BMI 30-39.9) Insomnia COPD (chronic obstructive pulmonary disease) Allergic rhinitis Ulcerative colitis Surgical History Umbilical hernia Hx of tonsillectomy History of incisional hernia repair History of cervical spinal surgery History of colonoscopy History of appendectomy (~2008) History of esophagogastroduodenoscopy (EGD) Family History Father Diabetes HTN (hypertension) Heart attack Mother Skin cancer HTN (hypertension) Diabetes Paternal Aunt Heart attack Sister Skin cancer Social History Household Members: Spouse Housing: [facility] Are you a primary resident care manager to a significant other at home: No Do you presently have visiting nurse or other home services: Yes Alcohol intake: never Patient Tobacco Use Status: Former Tobacco user Tobacco use type: Cigarette Years Smoked: (former smoker - onset 15yo, 1ppd x 36yrs, 35pyh, quit 2011) e-Cigarette/Vaping Use: Never Used Second Hand Smoke Exposure: No Substance Use Type: Marijuana service: No Current occupational status: retired Cognitive needs: No Hearing needs: No Vision needs: No Review of Systems Const Details: - Musculoskeletal: Reports left ankle pain, intermittent, worsens at night and upon standing. All systems reviewed & are unremarkable except as noted in HPI and below Physical Exam Extrem Other: Left lower extremity focused physical exam: Derm: No open lesions abrasions or wounds noted. No hyperkeratotic lesions noted. Mild xerosis noted to the plantar aspect of the foot. No erythema or ecchymosis noted. Vascular: DP/PT pulses palpable. Capillary refill time less than 3 seconds. Temperature gradient warm to warm. Minimal varicosities noted. No edema noted. Neuro: Protective sensation is grossly intact. MSK: Mild on palpation to the ankle circumferentially. Mild pain with ankle range of motion worsened with plantarflexion, eversion, and inversion. Range of motion of the forefoot within normal limits. No crepitus noted. Mild hammertoe deformities noted. Ankle/foot/toe images: 2 1. 2. Results Reviewed Results Reviewed: Ordered left ankle x-rays to be performed prior to next visit. Assessment & Plan Assessment & Plan (1) Left ankle pain: Code(s): M25.572 - Pain in left ankle and joints of left foot Category: Medical Qualifiers: Chronicity: chronic Qualified Code(s): M25.572 - Pain in left ankle and joints of left foot; G89.29 - Other chronic pain (2) Arthritis of left ankle: Code(s): M19.072 - Primary osteoarthritis, left ankle and foot Category: Medical (3) Controlled type 2 diabetes mellitus: Code(s): E11.9 - Type 2 diabetes mellitus without complications Category: Medical (4) Venous insufficiency: Code(s): I87.2 - Venous insufficiency (chronic) (peripheral) Category: Medical Plan Patient was informed and verbally consented to the use of an ambient scribe for clinic note documentation during this visit. I discussed with the patient the likelihood of arthritis in the left ankle due to a past injury and the plan to obtain an x-ray to confirm the diagnosis and rule out fractures. We talked about the use of a lace-up stabilizing ankle brace for stabilization and the continuation of Tylenol and ibuprofen for pain management. I also explained the use of diclofenac gel for pain. Discussed the affects of diabetes on the lower extremities and advised patient to continue with daily monitoring of glucose and daily monitoring of his feet. 1. Arthritis - X-ray of the left ankle ordered to assess for arthritis and rule out fractures. - Provided patient with a stabilizing lace-up ankle brace for ankle stabilization during ambulation. - Advised to continue using Tylenol and ibuprofen for pain management. - Prescribed diclofenac gel for topical application to alleviate pain. Patient is to return to the office in 2 weeks for further evaluation. Orders: Orders 2 XR ankle LT min 3V Today M19.072 - Primary osteoarthritis, left ankle and foot, M25.572 - Pain in left ankle and joints of left foot Medications: Refilled 2 diclofenac sodium 3% 1 appl topical BID PRN 100 grams 2RF pain 30 days M19.072 - Primary osteoarthritis, left ankle and foot, M25.572 - Pain in left ankle and joints of left foot, M51.369 - Other intervertebral disc degeneration, lumbar region without mention of lumbar back pain or lower extremity pain Coding Level of Care Code New Pt Level 4 (85476) Diagnoses Chronic pain of left ankle M25.572; G89.29 Chronicity: chronic Arthritis of left ankle M19.072 Controlled type 2 diabetes mellitus E11.9 Venous insufficiency I87.2 Time Spent (min) 45
[2025-03-15 13:06] VITALS: BMI 31.2
--- OUTSIDE RECORDS SUMMARY | 2025-03-15 16:52 | XMS_ITS | Encounter Summary ---
Author Organization [employer] Address [address] [facility] 7 [place] [address] Care Team Providers Care Hat Sizer Name Role Phone Unavailable Primary Care Provider Unavailabl e Encounter Details Date Type Department Care Team (Late Contact Info) Description 10/08/2022 Abstract [facility] AD[facility] [address] [place] [address] Raymundo, Erum [address] [place] [address] Social History Tobacco Use Types Packs/Day Years [...] 2:00 PM EDT Office Visit [facility] OPTOMETRY [address] [place] [address] Saniya Veliz, OD [address] [place] [address] documented as of this encounter Visit Diagnoses Not on filedocumented in this encounter
--- OUTSIDE RECORDS SUMMARY | 2025-03-15 16:52 | XMS_ITS | Patient Health Record ---
Author Organization [facility] Address [address] [facility] [place] [address] Care Team Providers Care Ruby Rails Developer Name Role Phone Shelli Moore MD Primary Care Provider Unavail able Juany Munson Unavailable [phone] Allergies Allergen (clinical drug ingredient) Drug/Non Drug [...] Active Proctosol HC 2.5 % 1 application Chocolate Dipper ally Twice a day Active Escitalopram Oxalate [...] Problem Acquired hammer toe of right foot (8970949173297382 ) Other hammer toe(s) (acquired), right foot (M20.41) Active confirmed Problem Acquired hammer toe of left foot (0861598473167482 ) Other hammer toe(s) (acquired), left foot (M20.42) Active confirmed Problem Plantar wart of left foot (7295989383053535 2) Plantar wart (B07.0) Active confirmed Problem Polyneuropathy due to diabetes mellitus (85077947) Type 2 diabetes mellitus with polyneuropathy (E11.42) Active confirmed Vital Signs Blood pressure diastolic 70 mm Hg 01/21/2025 Height 5ft9in in 01/21/2025 Blood pressure systolic 119 mm Hg 01/21/2025 Weight 204 lbs 01/21/2025 BMI 30.12 kg/m2 01/21/2025 Encounters Encounter Location Date Provider Diagnosis [facility] [address] [place] [address] 04/01/2024 Juany Perica Tinea pedis of both feet B35.3 ; Tinea unguium B35.1 ; Type 2 diabetes mellitus with polyneuropathy E11.42 ; Plantar wart B07.0 and Pain in left foot M79.[address] [address] 06/15/2024 Juany Perica Tinea pedis of both feet B35.3 ; Tinea unguium B35.1 ; Type 2 diabetes mellitus with polyneuropathy E11.42 ; Plantar wart B07.0 and Pain in left foot M79.[address] [address] 09/01/2024 Juany Perica Tinea pedis of both feet B35.3 ; Other hammer toe(s) (acquired), right foot M20.41 ; Tinea unguium B35.1 ; Type 2 diabetes mellitus with polyneuropathy E11.42 ; Plantar wart B07.0 ; Pain in left foot M79.672 and Other hammer toe(s) (acquired), left foot M20.[address] [address] 01/21/2025 Juany Perica Pain in left foot M79.672 ; Type 2 diabetes mellitus with polyneuropathy E11.42 ; Tinea unguium B35.1 and Plantar wart B07.0 [facility] [address] [address] 11/17/2024 Juany Munson Assessments Encounter Date Diagnosis [...] mellitus with polyneuropathy (ICD-10 - E11.42) 06/15/2024 Tinea unguium (ICD-10 - B35.1) 06/15/2024 Tinea pedis of both feet (ICD-10 - B35.3) 01/21/2025 Tinea unguium (ICD-10 - B35.1) 06/15/2024 Type 2 diabetes mellitus with polyneuropathy (ICD-10 - E11.42) 09/01/2024 Tinea unguium (ICD-10 - B35.1) 04/01/2024 Tinea unguium (ICD-10 - B35.1) 04/01/2024 Type 2 diabetes mellitus with polyneuropathy (ICD-10 - E11.42) 09/01/2024 Type 2 diabetes mellitus with polyneuropathy (ICD-10 - E11.42) 06/15/2024 Plantar wart (ICD-10 - B07.0) 01/21/2025 Plantar wart (ICD-10 - B07.0) 09/01/2024 Plantar wart (ICD-10 - B07.0) 06/15/2024 Pain in left foot (ICD-10 - M79.672) 04/01/2024 Plantar wart (ICD-10 - B07.0) 04/01/2024 Pain in left foot (ICD-10 - M79.672) 09/01/2024 Pain in left foot (ICD-10 - M79.672) 09/01/2024 Other hammer toe(s) (acquired), left foot (ICD-10 - M20.42) Plan Of Treatment Next Appt Details Provider Name:Juany Mary luna, 04/12/2025 10:00:00 AM, [address] [place] [address], [phone], Insurance Providers Payer Name Payer Address Payer Phone Subscriber Number Group Number Insured Name Patient Relationship to Insured Coverage Start Date Coverage End Date [facility] CCA SCO Claims [address] [employer] [id number] Kali Munoz Self - patient is the insured Medical (General) History Medical History History ICD Code Anxiety Back,Hip,and Knee pain covid-19 Depression Diabetic Headaches/Migraines Hepatitis Hiatal hernia Lung disease Psychiatric disorder Reflux ( GERD) sinusitis COPD Colitis Chicken pox Cholesterol Surgical History Surgery Date(Month/Year) cervical (spine?) surgery 2017 hernia [phone] peritonitis 2019 hernia 10/22
--- OUTSIDE RECORDS SUMMARY | 2025-03-15 16:53 | XMS_ITS | Clinical Summary ---
Author Organization [employer] Address [address] [facility] [address]t [place] [address] Care Team Providers Care Presser Cotton Ginning Name Role Phone Unavailable Primary Care Provider [...] bedtime. 2 Active Lancets (OneTouch Delica Plus [id number]) misc USE ONCE DAILY 3 Active OneTouch [...] Open fracture of tooth 02/13/2024 Fractured dental presybeterian with loss of materi al 02/02/2024 Diabetes [...] 2:00 PM EDT Office Visit [facility] OPT[facility]ETRY [address] [place] [address] Saniya Veliz, OD [address] [place] [address] Health Maintenance Due Date Last Done Comments [...] Most Recently Relevant to Health Maintenance Insurance [facility] < 65 [facility]
--- OUTSIDE RECORDS SUMMARY | 2025-03-15 16:53 | XMS_ITS | Clinical Summary ---
Author Organization [facility] Address [address] [place] [address] Phone Care Team Providers Care Pegger Name Role Phone Shelli Kwan MD Primary [...] topic Medical Devices Not on file Insurance [facility] MEDIC[facility] REPLACEMENT MEDICARE PART A & B [facility] MEDIC[facility] REPLACEMENT MEDICARE PART A & B Member Subscriber Plan / Payer (Ef fective 2023-Present) Name:Kali Kelly Member ID:[id number] Relation to Subscriber:Self Name:Kali Kelly Subscriber ID:[id number] Payer ID:[id number] Group ID:Not on file Type:Medicare Address: [employer] [facility] MEDICARE REPLACEMENT MEDICARE PART A & B [facility] MEDICARE REPLACEMENT MEDICARE PART A & B Member Subscriber Plan / Payer (Ef fective 2023-Present) Name:Kali Kelly Member ID:[id number] Relation to Subscriber:Self Name:Kali Kelly Subscriber ID:[id number] Payer ID:[id number] Group ID:Not on file Type:Medicare Address: [employer] [address] [facility] MEDICARE REPLACEMENT MEDICARE PART A & B [facility] MEDICARE REPLACEMENT MEDICARE PART A & B Care Teams Pegger Relationship Specialty Start Date End Date Shelli Kwan MD [address] [place] [address] PCP - General Internal Medicine 08/01/23 Additional Source Comments The information contained in this document represents components of the legal health record. It is not the complete legal health record.[facility]
== END 2025-03-15 13:42 | disposition home or self-care (01) ==
LOC: HO.HPODS 12:56
PROVIDERS: PCP Internal Medicine; Visit Provider Student in an Organized Health Care Education/Training Program
DX: M25.572 Pain in left ankle and joints of left foot (principal); G89.29 Other chronic pain; M19.072 Primary osteoarthritis, left ankle and foot; E11.9 Type 2 diabetes mellitus without complications; I87.2 Venous insufficiency (chronic) (peripheral)
CPT/HCPCS: 99204

== ENCOUNTER → 2025-03-15 12:55 | Outpatient (BNVA) | payer OTHER, SELFPAY | PROVIDERS: PCP Internal Medicine; Visit Provider Student in an Organized Health Care Education/Training Program | DX: M25.572 Pain in left ankle and joints of left foot (principal); M51.369 Other intervertebral disc degeneration, lumbar region without mention of lumbar back pain or lower extremity pain; M19.072 Primary osteoarthritis, left ankle and foot; G89.29 Other chronic pain; E11.9 Type 2 diabetes mellitus without complications; I87.2 Venous insufficiency (chronic) (peripheral) | CPT/HCPCS: 99202 ==

== ENCOUNTER 2025-03-25 13:30 | Outpatient (REF) | payer OTHER, SELFPAY ==
--- OUTSIDE RECORDS SUMMARY | 2024-04-06 05:30 | XMS_ITS ---
Author Organization [facility] Address [address] [place] [address] Care Team Providers Care Company Dancer Name Role Phone Shelli Moore MD Primary Care Provider Unavail able Juany Munson Unavailable [phone] REASON FOR VISIT seen 04/01/2024 Encounters Encounter Location Date Provider Diagnosis [address] [address] 04/06/2024 Juany Munson Plan Of Treatment Next Appt Details Provider Name:Juany luna, 04/12/2025 10:00:00 AM, [address] [place] [address], [phone], Progress Notes * Huber MUNOZArianaOB: (64 yo M)Acc No.[id number]:04/06/2024 Progress Note Patient: Kali GORDILLO Provider: Paula Munson DPM :1960 A ge:63 Y S ex:Male Date:04/06/2024 Address:[address] [id number] Pcp:Shelli Moore MD Subjective: * Chief Complaints: [...] Date: Generated for Tiesha rodriguez/Pan/Kirk on: 0 03/25/2025 02:50 PM EDT
--- OUTSIDE RECORDS SUMMARY | 2024-11-19 09:00 | XMS_ITS ---
Author Organization [facility] Address [address] [place] [address] Care Team Providers Care Guest Services Director Name Role Phone Teresa ELLIS, Shelli Primary Care Provider Unavail Juany Wong Unavailable [phone] Encounters Encounter Location Date Provider Diagnosis [address] [address] 11/19/2024 Juany Munson Plan Of Treatment Next Appt Details Provider Name:Juany luna, 04/12/2025 10:00:00 AM, [address] [place] [address], [address], Progress Notes * Huber MUNOZArianaOB: (64 yo M)Acc No.[id number]:11/19/2024 Progress Note Patient: Kali GORDILLO Provider: Paula Munson DPM :1960 A ge:64 Y S ex:Male Date:11/19/2024 Address:[address] [place] Pcp:Shelli Moore MD Subjective: * Chief Complaints: [...] 11/19/2024 Generated for Tiesha Pryor/Kirk on: 0 03/25/2025 02:51 PM EDT
--- NOTE | ~2025-03-25 | XR_ITS ---
EXAMINATION: XR ANKLE, LEFT CLINICAL INFORMATION: M25.572 - Pain in left ankle and joints of left foot COMPARISON: None available. TECHNIQUE: AP, lateral, and mortise views of the left ankle. FINDINGS: No fracture, dislocation, or suspicious bone lesion. There is normal alignment. The mortise is intact. The talar dome is normal. The subtalar joints appear normal. There is a small dorsal calcaneal spur. There is no joint effusion in the ankle. Normal soft tissues. XR/XR ankle LT min 3V IMPRESSION: No acute findings of the left ankle. Electronically signed by: Emeka Correa MD 03/25/2025 02:07 PM EDT
--- OUTSIDE RECORDS SUMMARY | 2025-03-25 14:51 | XMS_ITS | Clinical Summary ---
Author Organization [employer] Address [address] [facility] [address]t [place] [address] Care Team Providers Care Citrus Fruit Packer Name Role Phone Unavailable Primary Care Provider [...] bedtime. 2 Active Lancets (OneTouch Delica Plus [id number]) misc USE ONCE DAILY 3 Active OneTouch [...] Open fracture of tooth 02/13/2024 Fractured dental yazidi with loss of materi al 02/02/2024 Diabetes [...] 2:00 PM EDT Office Visit [facility] OPTOMETRY [address] [place] [address] Saniya Veliz, OD [address] [place] [address] Health Maintenance Due Date Last Done Comments [...] Most Recently Relevant to Health Maintenance Insurance [facility] < 65 [facility]
--- OUTSIDE RECORDS SUMMARY | 2025-03-25 14:51 | XMS_ITS | Patient Health Record ---
Author Organization [facility] Address [address] [facility] [place] [address] Care Team Providers Care Bindery Production Manager Name Role Phone Shelli Moore MD Primary Care Provider Unavail able Juany Munson Unavailable [phone] Allergies Allergen (clinical drug ingredient) Drug/Non Drug [...] Active Proctosol HC 2.5 % 1 application Senior Director Of [employer] ally Twice a day Active Escitalopram Oxalate [...] Problem Acquired hammer toe of right foot (2032009604724351 ) Other hammer toe(s) (acquired), right foot (M20.41) Active confirmed Problem Acquired hammer toe of left foot (8408125212711537 ) Other hammer toe(s) (acquired), left foot (M20.42) Active confirmed Problem Plantar wart of left foot (6354825853944313 2) Plantar wart (B07.0) Active confirmed Problem Polyneuropathy due to diabetes mellitus (64257611) Type 2 diabetes mellitus with polyneuropathy (E11.42) Active confirmed Vital Signs Blood pressure diastolic 70 mm Hg 01/21/2025 Height 5ft9in in 01/21/2025 Blood pressure systolic 119 mm Hg 01/21/2025 Weight 204 lbs 01/21/2025 BMI 30.12 kg/m2 01/21/2025 Encounters Encounter Location Date Provider Diagnosis [facility] [address] [place] [address] 04/01/2024 Juany Perica Tinea pedis of both feet B35.3 ; Tinea unguium B35.1 ; Type 2 diabetes mellitus with polyneuropathy E11.42 ; Plantar wart B07.0 and Pain in left foot M79.[address] [address] 06/15/2024 Juany Perica Tinea pedis of both feet B35.3 ; Tinea unguium B35.1 ; Type 2 diabetes mellitus with polyneuropathy E11.42 ; Plantar wart B07.0 and Pain in left foot M79.[address] [address] 09/01/2024 Juany Perica Tinea pedis of both feet B35.3 ; Other hammer toe(s) (acquired), right foot M20.41 ; Tinea unguium B35.1 ; Type 2 diabetes mellitus with polyneuropathy E11.42 ; Plantar wart B07.0 ; Pain in left foot M79.672 and Other hammer toe(s) (acquired), left foot M20.[address] [address] 01/21/2025 Juany Perica Pain in left foot M79.672 ; Type 2 diabetes mellitus with polyneuropathy E11.42 ; Tinea unguium B35.1 and Plantar wart B07.[address] [facility] [address] [address] 11/17/2024 Juany Munson Assessments Encounter Date Diagnosis [...] Provider Name:Juany Mary luna, 04/12/2025 10:00:00 AM, [address] [place] [address], [phone], Insurance Providers Payer Name Payer Address Payer Phone Subscriber Number Group Number Insured Name Patient Relationship to Insured Coverage Start Date Coverage End Date [facility] CCA SCO Claims [address] [place] [id number] Kali Munoz Self - patient is the insured Medical (General) History Medical History History ICD Code Anxiety Back,Hip,and Knee pain covid-19 Depression Diabetic Headaches/Migraines Hepatitis Hiatal hernia Lung disease Psychiatric disorder Reflux ( GERD) sinusitis COPD Colitis Chicken pox Cholesterol Surgical History Surgery Date(Month/Year) cervical (spine?) surgery 2017 hernia [phone] peritonitis 2019 hernia 10/22
--- OUTSIDE RECORDS SUMMARY | 2025-03-25 14:51 | XMS_ITS | Encounter Summary ---
Author Organization [employer] Address [address] [facility] 7 [place] [address] Care Team Providers Care Silviculture Professor Name Role Phone Unavailable Primary Care Provider Unavailabl e Encounter Details Date Type Department Care Team (Late Contact Info) Description 10/08/2022 Abstract [facility]ULT [facility]AL [address] [place] [address] Raymundo, Erum [address] [place] [address] Social History Tobacco Use Types Packs/Day Years [...] Description 04/29/2025 2:00 PM EDT Office Visit [facility] [address] [place] [address] Saniya Veliz, OD [address] [place] [address] documented as of this encounter Visit Diagnoses Not on filedocumented in this encounter
--- OUTSIDE RECORDS SUMMARY | 2025-03-25 14:51 | XMS_ITS | Clinical Summary ---
Author Organization [facility] Address [address] [place] [address] Phone Care Team Providers Care Potato Chip Frier Name Role Phone Shelli Kwan MD Primary [...] Care Team (Late st Contact Info) Description 04/15/2025 10:30 AM EDT Office Visit [facility] [address] [facility] 3rd Floor, [address] [place], [place] [phone] Clemente Zepeda DO [address] [facility] [address] [place] [address] [email or web address] Maintenance Due Date Last Done Comments [...] topic Medical Devices Not on file Insurance [facility] CARE MEDICARE REPLACEMENT MEDICARE PART A & B [facility] MEDICARE REPLACEMENT MEDICARE PART A & B [facility] CARE [place] [id number] MEDICARE PART A & B [facility] MEDICARE REPLACEMENT MEDICARE PART A & B [facility] [place] [id number] MEDICARE PART A & B [facility] ONE CARE MEDICARE REPLACEMENT [place] [id number] MEDICARE PART A & B Care Teams Potato Chip Frier Relationship Specialty Start Date End Date Shelli Kwan MD [address] [place] [address] PCP - General Internal Medicine 08/01/23 Additional Source Comments The information contained in this document represents components of the legal health record. It is not the complete legal health record.[facility]
== END 2025-03-25 13:31 | disposition home or self-care (01) ==
LOC: HO.XRAY 13:30
PROVIDERS: PCP Internal Medicine; Visit Provider Student in an Organized Health Care Education/Training Program
DX: M25.572 Pain in left ankle and joints of left foot (principal); M19.072 Primary osteoarthritis, left ankle and foot
CPT/HCPCS: 73610

== ENCOUNTER → 2025-03-25 13:35 | Outpatient (BNV) | payer OTHER, SELFPAY | PROVIDERS: PCP Internal Medicine; Visit Provider Radiology Diagnostic Radiology | DX: M25.572 Pain in left ankle and joints of left foot (principal) | CPT/HCPCS: 73610 ==

== ENCOUNTER 2025-03-29 12:22 | Outpatient (AMB) | payer OTHER, SELFPAY ==
--- OUTSIDE RECORDS SUMMARY | 2024-04-06 05:30 | XMS_ITS ---
Author Organization [facility] Address [address] [place] [address] Care Team Providers Care Commercial Airline Pilot Name Role Phone Shelli Moore MD Primary Care Provider Unavail able Juany Munson Unavailable [phone] REASON FOR VISIT seen 04/01/2024 Encounters Encounter Location Date Provider Diagnosis [address] [address] 04/06/2024 Juany Munson Plan Of Treatment Next Appt Details Provider Name:Juany luna, 04/12/2025 10:00:00 AM, [address] [place] [address], [phone], Progress Notes * Huber MUNOZArianaOB: (64 yo M)Acc No.[id number]:04/06/2024 Progress Note Patient: Kali GORDILLO Provider: Paula Munson DPM :1960 A ge:63 Y S ex:Male Date:04/06/2024 Address:[address] [place] Pcp:Shelli Moore MD Subjective: * Chief Complaints: [...] Date: Generated for Tiesha rodriguez/Pan/Kirk on: 0 03/29/2025 01:26 PM EDT
--- OUTSIDE RECORDS SUMMARY | 2024-11-19 09:00 | XMS_ITS ---
Author Organization [facility] Address [address] [place] [address] Care Team Providers Care Shake Maker Name Role Phone Teresa ELLIS, Shelli Primary Care Provider Unavail Juany Wong Unavailable [phone] Encounters Encounter Location Date Provider Diagnosis [address] [address] 11/19/2024 Juany Munson Plan Of Treatment Next Appt Details Provider Name:Juany luna, 04/12/2025 10:00:00 AM, [address] [place] [address], [address], Progress Notes * Huber MUNOZArianaOB: (64 yo M)Acc No.[id number]:11/19/2024 Progress Note Patient: Kali GORDILLO Provider: Paula Munson DPM :1960 A ge:64 Y S ex:Male Date:11/19/2024 Address:[address] [place] Pcp:Shelli Moore MD Subjective: * Chief Complaints: [...] 11/19/2024 Generated for Tiesha Pryor/Kirk on: 0 03/29/2025 01:27 PM EDT
--- NOTE | 2025-03-29 13:16 | MHC.OFFVIS ---
Vital Signs 03/29/25 13:19 Height 5 ft 9 in Weight 211 lb BMI 31.2 Intake Visit Reasons: Follow Up Pain in left foot Intake Note: Kali is a 64 year old male who presents today for a follow up on his arthritis of left ankle. Patient was prescribed diclofenac sodium topical gel and provided a lace up brace. He states that since last night he feels occasional pain that affects his ability to bear weight on his foot However with the lace up brace and the medication he feels some improvement. Greens Or Grounds Superintendent Required: Yes Greens Or Grounds Superintendent Services: Greens Or Grounds Superintendent Present Greens Or Grounds Superintendent Name: [id number] Allergies Penicillins (PENICILLINS) Allergy (Unknown, Verified 03/15/25 13:09) ANAPHYLAXIS HPI Comments Details: The patient is a 64-year-old male presenting for follow-up of left ankle pain. The pain was noted last night and persisted into the morning, though it was not as severe as before. The patient reports that the pain can be severe, rating it as an 8 or 9 out of 10, and sometimes requires the use of a cane for ambulation. The patient also reports a history of sciatica, which affects his lower back and occasionally causes him to move his feet while in bed. He has undergone cervical vertebrae surgery but has not had surgery on his lower back. Patient states he has been compliant with the use of the lace-up ankle brace and Voltaren gel and states he finds relief with treatment. He denies any new pedal injuries. Patient denies any other pedal concerns. Denies any current nausea, vomiting, fever, or chills. [facility] Medical History (Updated 03/29/25 @ 13:58 by Zoie Nunez DPM) Other enthesopathy of left foot and ankle Insertional tendinopathy of left Achilles tendon Arthritis of left ankle Left ankle pain History of small bowel obstruction Incisional hernia (10/12/24) Hepatitis Seasonal allergies Cough Hx of influenza Congestion of nasal sinus Type 2 diabetes mellitus OAB (overactive bladder) Hyperlipidemia LDL goal <70 Abdominal wall hernia Personal history of nicotine dependence History of COVID-19 Obesity (BMI 30-39.9) Insomnia COPD (chronic obstructive pulmonary disease) Allergic rhinitis Ulcerative colitis Surgical History Umbilical hernia Hx of tonsillectomy History of incisional hernia repair History of cervical spinal surgery History of colonoscopy History of appendectomy (~2008) History of esophagogastroduodenoscopy (EGD) Family History Father Diabetes HTN (hypertension) Heart attack Mother Skin cancer HTN (hypertension) Diabetes Paternal Aunt Heart attack Sister Skin cancer Social History Household Members: Spouse [facility]: [facility] Are you a primary customer care agent to a significant other at home: No Do you presently have visiting nurse or other home services: Yes Alcohol intake: never Patient Tobacco Use Status: Former Tobacco user Tobacco use type: Cigarette Years Smoked: (former smoker - onset 15yo, 1ppd x 36yrs, 35pyh, quit 2011) e-Cigarette/Vaping Use: Never Used Second Hand Smoke Exposure: No Substance Use Type: Marijuana service: No Current occupational status: retired Cognitive needs: No Hearing needs: No Vision needs: No Review of Systems Const Details: - Musculoskeletal: Reports intermittent severe ankle pain rated 8-9/10, requiring cane use at times. - Neurological: Reports sciatica affecting lower back, causing foot movement at night. All systems reviewed & are unremarkable except as noted in HPI and below Physical Exam Vital Signs: BMI result Body Mass Index 31.2 Extrem Other: Left lower extremity focused physical exam: Derm: No open lesions abrasions or wounds noted. No hyperkeratotic lesions noted. Mild xerosis noted to the plantar aspect of the foot. No erythema or ecchymosis noted. No maceration noted. Vascular: DP/PT pulses palpable. Capillary refill time less than 3 seconds. Temperature gradient warm to warm. Minimal varicosities noted. No edema noted. Neuro: Protective sensation is grossly intact. MSK: Mild on palpation to the ankle along the lateral and medial ligaments. Mild pain with total ankle range of motion. Range of motion of the forefoot within normal limits. No crepitus noted. Mild hammertoe deformities noted. Mild antalgic gait unassisted. Results Reviewed Results Reviewed: Podiatry Read of Left ankle 3 views weightbearing xrays (03/25/25): Joint spacing within normal limits. Small calcaneal spur noted posteriorly. Kager's triangle intact. No acute fractures or dislocations. Left ankle 3 views weightbearing xrays (03/25/25): FINDINGS: No fracture, dislocation, or suspicious bone lesion. There is normal alignment. The mortise is intact. The talar dome is normal. The subtalar joints appear normal. There is a small dorsal calcaneal spur. There is no joint effusion in the ankle. Normal soft tissues. IMPRESSION: No acute findings of the left ankle. Assessment & Plan Assessment & Plan (1) Left ankle pain: Code(s): M25.572 - Pain in left ankle and joints of left foot Category: Medical Qualifiers: Chronicity: chronic Qualified Code(s): M25.572 - Pain in left ankle and joints of left foot; G89.29 - Other chronic pain (2) Insertional tendinopathy of left Achilles tendon: Code(s): M76.62 - Achilles tendinitis, left leg Category: Medical (3) Other enthesopathy of left foot and ankle: Code(s): M77.52 - Other enthesopathy of left foot and ankle Category: Medical (4) Arthritis of left ankle: Code(s): M19.072 - Primary osteoarthritis, left ankle and foot Category: Medical (5) Controlled type 2 diabetes mellitus: Code(s): E11.9 - Type 2 diabetes mellitus without complications Category: Medical (6) Venous insufficiency: Code(s): I87.2 - Venous insufficiency (chronic) (peripheral) Category: Medical Plan Patient was informed and verbally consented to the use of an ambient scribe for clinic note documentation during this visit. I discussed with the patient the presence of a bone spur as seen on the x-ray. We talked about the benefits of physical therapy to strengthen the ankle and improve stability, and I emphasized the importance of using the brace and Voltaren gel for pain management. I advised the patient to continue using ibuprofen or Tylenol as needed for pain. - Referred patient to physical therapy to strengthen the ankle and improve stability. - Continue using the ankle brace and apply Voltaren gel as needed for pain relief. - Continue taking ibuprofen or Tylenol for pain management as needed. - Advised patient to wear supportive shoe gear and avoid barefoot walking. Follow-up appointment in six weeks to assess progress and determine if further imaging or intervention is needed. Orders: Orders PT Evaluation and Treatment 03/29/25 G89.29 - Other chronic pain, M25.572 - Pain in left ankle and joints of left foot, M76.62 - Achilles tendinitis, left leg, M77.52 - Other enthesopathy of left foot and ankle Coding Level of Care Code Est Pt Level 4 (46124) Diagnoses Chronic pain of left ankle M25.572; G89.29 Chronicity: chronic Insertional tendinopathy of left Achilles tendon M76.62 Other enthesopathy of left foot and ankle M77.52 Arthritis of left ankle M19.072 Controlled type 2 diabetes mellitus E11.9 Venous insufficiency I87.2 Time Spent (min) 45
[2025-03-29 13:19] VITALS: BMI 31.2
--- OUTSIDE RECORDS SUMMARY | 2025-03-29 13:26 | XMS_ITS | Encounter Summary ---
Author Organization [employer] Address [address] [facility] 7 [place] [address] Care Team Providers Care Security Risk Analyst Name Role Phone Unavailable Primary Care Provider Unavailabl e Encounter Details Date Type Department Care Team (Late Contact Info) Description 10/08/2022 Abstract [facility] ADULT DENTAL [address] [place] [address] Raymundo, Erum [address] [place] [address] Social History Tobacco Use Types Packs/Day Years [...] Description 04/29/2025 2:00 PM EDT Office Visit [facility] OPTOMETRY [address] [place] [address] Saniya Veliz, OD [address] [place] [address] documented as of this encounter Visit Diagnoses Not on filedocumented in this encounter
--- OUTSIDE RECORDS SUMMARY | 2025-03-29 13:26 | XMS_ITS | Patient Health Record ---
Author Organization [facility] Address [address] [place] [address] Care Team Providers Care Drapery Worker Name Role Phone Shelli Moore MD Primary Care Provider Unavail able Juany Munson Unavailable [phone] Allergies Allergen (clinical drug ingredient) Drug/Non Drug [...] Active Proctosol HC 2.5 % 1 application Bulb Tester ally Twice a day Active Escitalopram Oxalate [...] Problem Acquired hammer toe of right foot (0354912509597429 ) Other hammer toe(s) (acquired), right foot (M20.41) Active confirmed Problem Acquired hammer toe of left foot (5751740369288132 ) Other hammer toe(s) (acquired), left foot (M20.42) Active confirmed Problem Plantar wart of left foot (8859350023750137 2) Plantar wart (B07.0) Active confirmed Problem Polyneuropathy due to diabetes mellitus (68808970) Type 2 diabetes mellitus with polyneuropathy (E11.42) Active confirmed Vital Signs Blood pressure diastolic 70 mm Hg 01/21/2025 Height 5ft9in in 01/21/2025 Blood pressure systolic 119 mm Hg 01/21/2025 Weight 204 lbs 01/21/2025 BMI 30.12 kg/m2 01/21/2025 Encounters Encounter Location Date Provider Diagnosis [facility] [address] [place] [address] 04/01/2024 Juany Perica Tinea pedis of both feet B35.3 ; Tinea unguium B35.1 ; Type 2 diabetes mellitus with polyneuropathy E11.42 ; Plantar wart B07.0 and Pain in left foot M79.[address] [address] 06/15/2024 Juany Perica Tinea pedis of both feet B35.3 ; Tinea unguium B35.1 ; Type 2 diabetes mellitus with polyneuropathy E11.42 ; Plantar wart B07.0 and Pain in left foot M79.[address] [address] 09/01/2024 Juany Perica Tinea pedis of both feet B35.3 ; Other hammer toe(s) (acquired), right foot M20.41 ; Tinea unguium B35.1 ; Type 2 diabetes mellitus with polyneuropathy E11.42 ; Plantar wart B07.0 ; Pain in left foot M79.672 and Other hammer toe(s) (acquired), left foot M20.[address] [address] 01/21/2025 Juany Perica Pain in left foot M79.672 ; Type 2 diabetes mellitus with polyneuropathy E11.42 ; Tinea unguium B35.1 and Plantar wart B07.0 [facility] [address] [address] 11/17/2024 Juany Munson Assessments Encounter Date Diagnosis [...] Provider Name:Juany Mary luna, 04/12/2025 10:00:00 AM, [address] [place] [address], [phone], Insurance Providers Payer Name Payer Address Payer Phone Subscriber Number Group Number Insured Name Patient Relationship to Insured Coverage Start Date Coverage End Date [facility] CCA SCO Claims [address] [place] [id number] Kali Munoz Self - patient is the insured Medical (General) History Medical History History ICD Code Anxiety Back,Hip,and Knee pain covid-19 Depression Diabetic Headaches/Migraines Hepatitis Hiatal hernia Lung disease Psychiatric disorder Reflux ( GERD) sinusitis COPD Colitis Chicken pox Cholesterol Surgical History Surgery Date(Month/Year) cervical (spine?) surgery 2017 hernia [phone] peritonitis 2019 hernia 10/22
--- OUTSIDE RECORDS SUMMARY | 2025-03-29 13:27 | XMS_ITS | Clinical Summary ---
Author Organization [facility] Address [address] [place] [address] Phone Care Team Providers Care Manager Event Name Role Phone Shelli Kwan MD Primary [...] Description 04/15/2025 10:30 AM EDT Office Visit [facility] [address] [facility] 3rd Floor, [address] [place], [place] [phone] Clemente Zepeda DO [address] [facility] [address] [place] [address] [email or web address] Maintenance Due Date Last Done Comments [...] MEDICARE REPLACEMENT MEDICARE PART A & B [facility] MEDICARE REPLACEMENT MEDICARE PART A & B [facility] [place] [id number] MEDICARE PART A & B [facility] MEDICARE REPLACEMENT MEDICARE PART A & B [facility] [place] [address] MEDICARE PART A & B [facility] ONE CARE MEDICARE REPLACEMENT [place] [id number] MEDICARE PART A & B Care Teams Manager Event Relationship Specialty Start Date End Date Shelli Kwan MD [address] [place] [address] PCP - General Internal Medicine 08/01/23 Additional Source Comments The information contained in this document represents components of the legal health record. It is not the complete legal health record.[facility]
--- OUTSIDE RECORDS SUMMARY | 2025-03-29 13:27 | XMS_ITS | Clinical Summary ---
Author Organization [employer] Address [address] [facility] 7t [place] [address] Care Team Providers Care Terminal Make Up Operator Name Role Phone Unavailable Primary Care [...] bedtime. 2 Active Lancets (OneTouch Delica Plus Kaucmq50Z) misc USE ONCE DAILY 3 Active OneTouch [...] Open fracture of tooth 02/13/2024 Fractured dental church with loss of materi al 02/02/2024 Diabetes [...] Asthma-chronic obstructive p ulmonary disease overlap syndrome (CMS/HCC) 11/04/2017 Benzodiazepine dependence ([facility]) 11/04/2017 Chronic recurrent sinusitis 11/04/2017 Colitis 11/04/2017 Disorder of tendon of shoulder region 11/04/2017 Dry eyes 11/04/2017 Gastroesophageal reflux disease without esophagi tis 11/04/2017 Lumbar back pain with radicu lopathy affecting right lower extremity 11/04/2017 Mood disorder 11/04/2017 Noise-induced hearing loss 11/04/2017 Obesity 11/04/2017 Opioid dependence in remission ([facility]) 018 Immunizations Immunization Administration Dates Next Due Influenza [...] Description 04/29/2025 2:00 PM EDT Office Visit [facility] [address] [place] [address] Saniya Veliz, OD [address] [place] [address] Health Maintenance Due Date Last Done Comments [...] Most Recently Relevant to Health Maintenance Insurance [facility] < 65 [place] [id number] [facility]
== END 2025-03-29 13:56 | disposition home or self-care (01) ==
LOC: HO.HPODS 12:23
PROVIDERS: PCP Internal Medicine; Visit Provider Student in an Organized Health Care Education/Training Program
DX: M25.572 Pain in left ankle and joints of left foot (principal); G89.29 Other chronic pain; M76.62 Achilles tendinitis, left leg; E11.9 Type 2 diabetes mellitus without complications; M77.52 Other enthesopathy of left foot and ankle; M19.072 Primary osteoarthritis, left ankle and foot; I87.2 Venous insufficiency (chronic) (peripheral)
CPT/HCPCS: 99214

== ENCOUNTER → 2025-03-29 12:22 | Outpatient (BNVA) | payer OTHER, SELFPAY | PROVIDERS: PCP Internal Medicine; Visit Provider Student in an Organized Health Care Education/Training Program | DX: M25.572 Pain in left ankle and joints of left foot (principal); M76.62 Achilles tendinitis, left leg; M75.52 Bursitis of left shoulder; M19.072 Primary osteoarthritis, left ankle and foot; E11.9 Type 2 diabetes mellitus without complications; I87.2 Venous insufficiency (chronic) (peripheral) | CPT/HCPCS: 99212 ==

== ENCOUNTER 2025-04-05 14:35 | Outpatient (AMB) | payer OTHER, SELFPAY ==
--- NOTE | 2025-04-05 14:50 | MHC.OFFVIS ---
Intake Visit Reasons: 6m follow up Intake Note: Patient is present for 6m follow up Urology Medication:OXYBUTYNIN Antibiotic Allergy:PENICILLIN Blood Thinner:VITAMIN K,XARELTO Snorkelling Instructor Required: No Allergies Penicillins (PENICILLINS) Allergy (Unknown, Verified 04/05/25 14:51) ANAPHYLAXIS HPI Comments Details: Kali is a pleasant Egyptian-speaking male. He is a patient of Dr. Bartlett. He is seen for the following urologic conditions - erectile dysfunction - bladder instability overactive bladder - elevated PSA Egyptian translation provided by qualified medical records manager - by telephone Last seen July Success with 15 mg oxybutynin Would like to continue Erectile dysfunction in setting of type 2 diabetes Has been on Cialis 5 mg daily Previously used 20 mg on demand Bladder instability Oxybutynin 10 mg dialy PSA 09/20 2.9, 11/20 T 451 LH 7.7 Using Jardiance with glucose 3+ - contributing to urinary urgency and frequency and nocturia Endocrinology switched to Trulicity with significant impact on bladder urgency and frequency Previously taken Myrbetriq [facility] Medical History Other enthesopathy of left foot and ankle Insertional tendinopathy of left Achilles tendon Arthritis of left ankle Left ankle pain History of small bowel obstruction Incisional hernia (10/12/24) Hepatitis Seasonal allergies Cough Hx of influenza Congestion of nasal sinus Type 2 diabetes mellitus OAB (overactive bladder) Hyperlipidemia LDL goal <70 Abdominal wall hernia Personal history of nicotine dependence History of COVID-19 Obesity (BMI 30-39.9) Insomnia COPD (chronic obstructive pulmonary disease) Allergic rhinitis Ulcerative colitis Surgical History Umbilical hernia Hx of tonsillectomy History of incisional hernia repair History of cervical spinal surgery History of colonoscopy History of appendectomy (~2008) History of esophagogastroduodenoscopy (EGD) Family History Father Diabetes HTN (hypertension) Heart attack Mother Skin cancer HTN (hypertension) Diabetes Paternal Aunt Heart attack Sister Skin cancer Social History Household Members: Spouse Housing: Condominium Are you a primary critical care technician to a significant other at home: No Do you presently have visiting nurse or other home services: Yes Alcohol intake: never Patient Tobacco Use Status: Former Tobacco user Tobacco use type: Cigarette Years Smoked: (former smoker - onset 15yo, 1ppd x 36yrs, 35pyh, quit 2011) e-Cigarette/Vaping Use: Never Used Second Hand Smoke Exposure: No Substance Use Type: Marijuana service: No Current occupational status: retired Cognitive needs: No Hearing needs: No Vision needs: No Review of Systems Const Denies chills and Denies fever(s) Card Reports no additional complaints and Denies syncope Resp Denies cough GI Denies abdominal pain and Denies heartburn Reports as per HPI and Denies change in libido Neuro Denies syncope Psych Denies change in libido Endo Denies change in libido Physical Exam Const General: cooperative, healthy appearing, comfortable and no acute distress Orientation/consciousness: patient oriented x3 HEENT Face and sinus: Yes normal facial exam Mouth: moist mucous membranes Neck Neck: Yes normal visual inspection, Yes full ROM and Yes trachea midline Chest Chest palpation & inspection: normal inspection of the chest Resp Effort & Inspection: normal respiratory effort, able to speak in complete sentences and no respiratory distress GI Inspection: Yes normal to inspection Back/Spine/Pelvis Cervical Spine: normal cervical lordosis Thoracic/Lumbar Spine: thoracic and lumbar spine normal to inspection Skin General skin exam: no rashes or lesions noted Neuro General: patient oriented x3, gait normal, tone normal and moves all extremities Extrem General: Yes normal to inspection and Yes capillary refill normal Assessment & Plan Assessment & Plan (1) OAB (overactive bladder): Code(s): N32.81 - Overactive bladder Category: Medical (2) BPH w urinary obs/LUTS: Code(s): N40.1 - Benign prostatic hyperplasia with lower urinary tract symptoms; N13.8 - Other obstructive and reflux uropathy Category: Medical Plan Six-month follow-up Medications: Changed From oxybutynin chloride ER daily 10 mg PO DAILY 90 days 90 tabs 1RF N39.41 - Urge incontinence To oxybutynin chloride ER daily 15 mg PO DAILY 90 tabs 1RF 90 days N39.41 - Urge incontinence Patient Instructions: This note is constructed using voice recognition software. While every effort has been made to ensure accuracy ic design engineer errors may have been included. Imaging studies, laboratory and physical exam results were discussed and reviewed in detail. No major barriers to patient understanding were identified. An opportunity to ask questions regarding the treatment plan was provided. All questions were answered. The patient expressed understanding and agreement with the above treatment plan. The patient is aware they should contact our office by phone for worsening of their current condition or the appearance of new urologic symptoms. Compliance is encouraged with any medications and followup testing that is ordered. It is a privilege to participate in the urologic care of your patient. If you have any questions or concerns regarding treatment for the above conditions, or other urologic issues, please do not hesitate to contact me. The office telephone contact is [phone]. Sincerely, Dr Jc Fitzpatrick MD, [facility] - Urology Compassionate Specialist Care for the Genitourinary System Coding Level of Care Code Est Pt Level 3 (04942) Complex EM visit Add On G2211 Diagnoses OAB (overactive bladder) N32.81 BPH w urinary obs/LUTS N40.1; N13.8
--- OUTSIDE RECORDS SUMMARY | 2025-04-05 17:56 | XMS_ITS | Clinical Summary ---
Author Organization [facility] Address [address] [place] [id number] Phone Care Team Providers Care Underwriting Intern Name Role Phone Shelli Kwan MD Primary [...] Description 04/15/2025 10:30 AM EDT Office Visit [facility] [address] [facility] 3rd Floor, [address] [place], [place] [id number] Clemente Zepeda DO [address] [facility] [address] [place] [phone] [email or web address] Maintenance Due Date Last Done Comments [...] VACCINE (#1) 2025 COVID-19 VACCINE ( - 2024-2 6 season) 2025 RSV VACCINE (1 - 1-dose [...] topic Medical Devices Not on file Insurance [facility] C[facility] MEDICARE REPLACEMENT MEDICARE PART A & B [facility] MEDICARE REPLACEMENT MEDICARE PART A & B [facility] CARE [place] [id number] MEDICARE PART A & B [facility] MEDICARE REPLACEMENT MEDICARE PART A & B [facility] [place] [id number] MEDICARE PART A & B [facility] CARE MEDICARE REPLACEMENT [place] [id number] MEDICARE PART A & B Care Teams Underwriting Intern Relationship Specialty Start Date End Date Shelli Kwan MD [address] [place] [address] PCP - General Internal Medicine 08/01/23 Additional Source Comments The information contained in this document represents components of the legal health record. It is not the complete legal health record.[facility]
--- OUTSIDE RECORDS SUMMARY | 2025-04-05 17:56 | XMS_ITS | Encounter Summary ---
Author Organization [email or web address] Address [address] [facility] 7 [place] [address] Care Team Providers Care Form Carpenter Name Role Phone Unavailable Primary Care Provider Unavailabl e Encounter Details Date Type Department Care Team (Late Contact Info) Description 10/08/2022 Abstract [facility] [address] [place] [address] Raymundo, Erum [address] [place] [address] Social History Tobacco Use Types Packs/Day Years [...] Description 04/29/2025 2:00 PM EDT Office Visit [facility] [address] [place] [address] Saniya Veliz, OD [address] [place] [address] documented as of this encounter Visit Diagnoses Not on filedocumented in this encounter
--- OUTSIDE RECORDS SUMMARY | 2025-04-05 17:56 | XMS_ITS | Clinical Summary ---
Author Organization [facility] [employer] Address [address] [facility] [address] [place] [address] Care Team Providers Care Supervisor Pipeline Name Role Phone Unavailable Primary Care Provider [...] bedtime. 2 Active Lancets (OneTouch Delica Plus [id number]) misc USE ONCE DAILY 3 Active OneTouch [...] Open fracture of tooth 02/13/2024 Fractured dental yazdanism with loss of materi al 02/02/2024 Diabetes [...] disease overlap syndrome (CMS/HCC) 11/04/2017 Benzodiazepine dependence ([facility]) 11/04/2017 Chronic recurrent sinusitis 11/04/2017 Colitis 11/04/2017 Disorder of tendon of shoulder region 11/04/2017 Dry eyes 11/04/2017 Gastroesophageal reflux disease without esophagi tis 11/04/2017 Lumbar back pain with radicu lopathy affecting right lower extremity 11/04/2017 Mood disorder 11/04/2017 Noise-induced hearing loss 11/04/2017 Obesity 11/04/2017 Opioid dependence in remission ([facility]) 018 Immunizations Immunization Administration Dates Next Due [...] Description 04/29/2025 2:00 PM EDT Office Visit [facility] [address] [place] [address] Saniya Veliz, OD [address] [place] [address] Health Maintenance Due Date Last Done Comments [...] Most Recently Relevant to Health Maintenance Insurance [facility] < [address] [place] [id number] [facility]
== END 2025-04-05 15:24 | disposition home or self-care (01) ==
LOC: HO.HUSH 14:36
PROVIDERS: PCP Internal Medicine; Visit Provider Urology
DX: N32.81 Overactive bladder (principal); N40.1 Benign prostatic hyperplasia with lower urinary tract symptoms; N13.8 Other obstructive and reflux uropathy; Z13.9 Encounter for screening, unspecified
CPT/HCPCS: 99213; G2211

== ENCOUNTER → 2025-04-05 14:35 | Outpatient (BNVA) | payer OTHER, SELFPAY | PROVIDERS: PCP Internal Medicine; Visit Provider Urology | DX: N40.1 Benign prostatic hyperplasia with lower urinary tract symptoms (principal); N32.81 Overactive bladder; N13.8 Other obstructive and reflux uropathy | CPT/HCPCS: 81003; 99212 ==

== ENCOUNTER 2025-05-16 13:34 | Outpatient (AMB) | payer OTHER, SELFPAY ==
[2025-05-16 13:36] VITALS: BP 114/64; PULSE 70; O2SAT 96; BMI 29.7
--- NOTE | 2025-05-16 13:36 | MHC.OFFVIS ---
Vital Signs 05/16/25 13:36 Height 5 ft 9 in Weight 200 lb 13.458 oz BMI 29.7 BP 114/64 Blood Pressure Location Lt brachial Position Sitting Pulse 70 Pulse Source Pulse Oximeter Pulse Oximetry (%) 96 Oxygen Delivery Method Room Air Intake Visit Reasons: dm Intake Note: Patient present today for Type 2 Diabetes Mellitus Last Diabetic eye exam: Last exam was on March 2025 Last Podiatry Visit: Last visit was on 01/21/25 by [facility] Random Glucose: 172 mg/dl HgA1C: 5.9% Glass Melt Operator Required: Yes Glass Melt Operator Language: Woodworking Machine Offbearer Services: Glass Melt Operator Present Glass Melt Operator Name: John Information Interpreted: non-clinical & clinical Accompanied by: Self / Same As Patient Allergies Penicillins (PENICILLINS) Allergy (Unknown, Verified 05/16/25 13:45) ANAPHYLAXIS Medication List - Last Reconciled 05/16/25 by Asya Loo PA-C [adjustable bed rail As directed] [adult diapers As directed] albuterol sulfate 2.5 mg inhalation Q6H PRN atorvastatin 20 mg PO BEDTIME 90 days [bath mat As directed] blood sugar diagnostic (FreeStyle Lite Strips) Use daily As directed to check blood glucose blood-glucose meter (FreeStyle Lite Meter kit) Use daily As directed to check blood sugars bupropion HCl XL 150 mg PO DAILY clonazepam 1 mg PO BEDTIME clonazepam 0.5 mg PO DAILY clotrimazole-betamethasone 1-0.05 % 1 appl topical BID PRN dexlansoprazole 60 mg PO DAILY 90 days diclofenac sodium 3% 1 appl topical BID PRN 30 days dicyclomine 20 mg PO BID PRN docusate sodium (Colace) 100 mg PO BID PRN dulaglutide (Trulicity) 1.5 mg subcut BEEBE escitalopram oxalate (Lexapro) 10 mg PO DAILY [flip pillow As directed] fluticasone propionate 50 mcg/actuation 2 sprays intranasal DAILY PRN Incruse Ellipta 62.5 mcg/actuation (umeclidinium) 1 inh PO DAILY NS lancets (FreeStyle Lancets) use daily as directed to check blood glucose mesalamine 2.4 grams PO DAILY PRN montelukast 10 mg PO DAILY [id number] mcg (Centrum Silver Men) 1 tab PO DAILY oxybutynin chloride ER 15 mg PO DAILY 90 days polyvinyl alcohol 1.4% (Artificial Tears (polyvinyl alcohol)) 1 drp ophthalmic (eye) QID PRN propranolol ER 80 mg PO BID rivaroxaban (Xarelto) 20 mg PO DAILY [shower head As directed] sumatriptan succinate 50 mg PO DAILY PRN triamcinolone acetonide 0.1% 1 appl topical TID PRN underpads (Bed Underpads) Use 4 per day Ventolin HFA 90 mcg/actuation (albuterol sulfate) 2 puffs PO QID PRN NS [wipes As directed] HPI HPI dm: Details: Patient is a 64-year-old male with a significant past medical history of type 2 diabetes, hyperlipidemia, fatty liver, erectile dysfunction, anxiety and depression presenting today for consultation regarding his diabetes. Glass Melt Operator: Mirtha Herron: He was diagnosed with diabetes in 2022. His last A1c was 5.8 and today it is 5.9. He is currently treated with trulicity 1.5 mg weekly. Doing well with this, no complaints or side effects. -His blood sugars have been great around 110-130 fasting. when he was sick with a viral uri it did increase slightly to 140. -Jardiance caused urinary sx, torated metformin most of the time but at times had GI upset. Likes being off of this. He has been following a gifted program teacher which he finds helpful modifications. He has started exercising as well which is helping control his bs. Follows with Podiatry. Denies any peripheral neuropathy. Follows with ophthalmology and denies any retinopathy. He denies any hypo or hyperglycemic events. CV: Blood pressure today in the office is 114/64. He is on propranolol 80 mg twice a day for tremors. Cholesterol is managed with atorvastatin 20 mg daily. Last LDL 57 PFSH Medical History (Updated 05/09/25 @ 11:49 by Sandra Gaitan Mary) DAVID (obstructive sleep apnea) MCI (mild cognitive impairment) with memory loss Migraines Other enthesopathy of left foot and ankle Insertional tendinopathy of left Achilles tendon Arthritis of left ankle Left ankle pain History of small bowel obstruction Incisional hernia (10/12/24) Hepatitis Seasonal allergies Cough Hx of influenza Congestion of nasal sinus Type 2 diabetes mellitus OAB (overactive bladder) Hyperlipidemia LDL goal <70 Abdominal wall hernia Personal history of nicotine dependence History of COVID-19 Obesity (BMI 30-39.9) Insomnia COPD (chronic obstructive pulmonary disease) Allergic rhinitis Ulcerative colitis Surgical History Umbilical hernia Hx of tonsillectomy History of incisional hernia repair History of cervical spinal surgery History of colonoscopy History of appendectomy (~2008) History of esophagogastroduodenoscopy (EGD) Family History Father Diabetes HTN (hypertension) Heart attack Mother Skin cancer HTN (hypertension) Diabetes Paternal Aunt Heart attack Sister Skin cancer Social History Household Members: Spouse Housing: [facility] Are you a primary floor care specialist to a significant other at home: No Do you presently have visiting nurse or other home services: Yes Alcohol intake: never Patient Tobacco Use Status: Former Tobacco user Tobacco use type: Cigarette Years Smoked: (former smoker - onset 15yo, 1ppd x 36yrs, 35pyh, quit 2011) e-Cigarette/Vaping Use: Never Used Second Hand Smoke Exposure: No Substance Use Type: Marijuana service: No Current occupational status: retired Cognitive needs: No Hearing needs: No Vision needs: No Physical Exam Const Orientation/consciousness: patient oriented x3 HEENT Ears: hearing grossly normal bilaterally Neck Thyroid: Thyroid normal Lymphatic: no lymphadenopathy noted Resp Auscultation: clear to auscultation bilaterally Cardio Rate: regular rate Rhythm: regular rhythm Heart sounds: S1 normal heart sound present and S2 normal heart sound present Skin General skin exam: no rashes or lesions noted Neuro General: patient oriented x3, gait normal and no focal motor deficits Results AMB Hemoglobin A1c AMB Hemoglobin A1c 5.9 % Last Edit by GEORGETTE Vera on 05/16/25 14:01 Results Reviewed Results Reviewed: Laboratory Tests 12/02/24 01/14/25 02/08/25 15:47 13:47 21:25 Creatinine Estim Creat Clear Calc Estimated GFR Hgb A1c (Clinic) 5.8 AST 26 ALT 40 Triglycerides 119 Cholesterol 115 LDL Cholesterol, Calc 56 HDL Cholesterol 36 L 02/10/25 05:33 Creatinine 0.84 Estim Creat Clear Calc 100.1 Estimated GFR > 60 Hgb A1c (Clinic) AST ALT Triglycerides Cholesterol LDL Cholesterol, Calc HDL Cholesterol Assessment & Plan Assessment & Plan (1) Controlled type 2 diabetes mellitus: Code(s): E11.9 - Type 2 diabetes mellitus without complications Category: Medical Plan: continue current treatment plan f/u 4-6 months or sooner prn (2) Dyslipidemia: Code(s): E78.5 - Hyperlipidemia, unspecified Category: Medical Plan: Continue atorvastatin 20 mg Orders: Orders AMB Hemoglobin A1c Today E11.8 - Type 2 diabetes mellitus with unspecified complications, Z13.9 - Encounter for screening, unspecified Coding Level of Care Code Est Pt Level 4 (87443) Complex EM visit Add On G2211 Diagnoses Controlled type 2 diabetes mellitus E11.9 Dyslipidemia E78.5
[2025-05-16 13:53] LABS: Glucose, Whole Blood 172 mg/dL (60-115)
--- OUTSIDE RECORDS SUMMARY | 2025-05-17 02:41 | XMS_ITS | Data Portability ---
Author Organization [facility], [facility] Address [address] [place] [address] Care Team Providers Care Wheel Alignment Technician Name Role Phone HIM CCA OTHER NATASHA CORBETT Primary Care Provider [phone] Assessment Encounter Date Assessment Date Assessment LastModified [...] ptimary team [email or web address] Not available 09/15/2024 21:15:20 02/08/2025 02/08/2025 I provided real -time medical direction via phone for this encounter and was available for additional phone-based assistance as needed. I have reviewed and agree with the Assessment and Plan as documented by the Household Personal Assistant. Patient given the opportunity to ask questions. Our service contacted for an assessment of: diarrhea As per above, patient with TNTC foul-smelling, oily BMs with diarrhea consistency after a hernia surgery with likely prabha=op abx and FB placement Per library associate on the scene, VSS. Please read the library associate note for their exam findings. Impression: Likely C. diff - hospital acquired after recent surgery. Unable to obtain a sample for PCR/toxin, unable to obtain a WBC or obtain a KUB -> for those reasons we elected to have the patient present to ED for care but necessarily admission depending on w/u Plan: expect call to ED Allergies: Reviewed [email or web address] Not available 02/08/2025 20:56:54 Plan of Treatment Reminders Order Date Submit Date Provider Last Modified By Organization Details Last Modified Time Details Appointments None recorded. Lab rapid flu (A+B) 2024 [facility], [address] [place] [address], [id number] 20:38:36 rapid SARS CoV 2 Ag, QL IA, respiratory specimen 2024 [facility], [address] [place] [address], [id number] 20:38:15 rapid strep group A, throat 2024 025 [facility], [address] [place] [address], [id number] 21:55:34 Referral None recorded. Procedures None recorded. Surgeries None recorded. Imaging None recorded. Medication Orders oseltamivir 75 mg capsule 2024 [id number], [address] [place], [place], [phone], 21:08:58 Tamiflu 75 mg capsule 2024 [facility] #[id number], [address] [place], [place], [phone], 21:09:03 Patient TargetsNo targets recorded. Patient InstructionsNo instructions recorded. Reason for Referral None Reported. Results Created Date Observation Date Name Description Value Unit Range Abnormal Flag Note LastModifiedBy Organization Detail LastModifiedTime 09/16/1909/15/2024 rapid strep group A, throa t Strep negati ve Not Available [facility] [address] [place] [address], [id number] 09/15/2024 21:14:27 Result Notes None recorded. Medical Equipment None Reported. Allergies Allergen ID Allergen Name Allergen Category Reaction Reaction Severity Criticality Documentation Date Start Date Code Code System Note Provider Name and Address Organization Details Recorded Time 10905 Product containin g penicilli n (product) medicatio n Not available Not available Not available 09/15/2024 69934 8001 SNOMED Not Available [facility] - production 20:03:25 penicilli n G Not available rash Not available high 05/12/20252017 7980 RxNorm Other react ion(s ): Rash Not Available [place] - External Data Service - prod 19:20:49 Medications Name Sig Start Date Stop Date [...] Not Available [facility] - production 5 21:01:21 Date Recorded Body temperature Oxygen saturation Oxygen saturation in Arterial blood by Pulse oximetry Respiratory rate Heart rate Systolic And Diastolic Provider Name and Address Organization Details Last Updated DateTime 5 98.3 [degF] 99 % 99 % 16 /min 89 /min 102/68 mm[Hg] Not Available [facility] - production 20:01:39 Date Recorded Heart rate Oxygen saturation Oxygen saturation in Arterial blood by Pulse oximetry Body weight Respiratory rate Body height Systolic And Diastolic Provider Name and Address Organization Details Last Updated DateTime 5 75 /min 97 % 97 % 46062.4 4 g 16 /min 175.26 cm 117/77 mm[Hg] Not Available [facility] - production 17:50:22 Social History None recorded. Functional Status None recorded. Mental Status None recorded. Family History Nothing Reported. Medical History No medical history recorded. Past Encounters Encounter ID Performer Location Encounter Start Date Encounter Closed Date Diagnosis/Indication Diagnosis SNOMED-CT Code Diagnosis ICD10 Code Diagnosis IMO Codes Diagnosis Note [id number] Rhett Menendez MD Main - [address] [address] 09/15/2024 21:01:19 09/20/2024 22:21:01 Influenza caused by Influenza A virus 089020477 J09.X2 [id number] Adore Kaufman MD Main-[facility] [address] [address] 02/08/2025 19:54:36 02/09/2025 10:10:58 Acute diarrhea 740925334 R19.7 04825 [id number] SURINDER [facility] [address] [address] 05/12/2025 17:44:22 05/13/2025 12:00:28 Sinus headache 7596956 R51.9 [id number] Evaluation in the field was performed by my library associate colleague, as noted above, I provided real-time direction and supervisio n for this visit. The evaluation revealed 64-year-ol d male with a history of migraines, type 2 diabetes mellitus, obstructiv e sleep apnea, COPD, inflammato ry bowel disease (Crohn s /ulcerativ e colitis), prior appendecto my, and hernia repair presents with 2 3 days of sinus pain and pressure, worsening headaches, and nasal congestion . He reports body aches and intermitte nt fever/chil ls at night. He describes pressure over the frontal sinus region. He has been using OTC DayQuil/Ny Quil with partial relief. He was recently prescribed sumatripta n for migraines but has not tried it during this episode. He also has a history of allergic rhinitis but has not been using Flonase consistent ly. He reports good PO tolerance. He denies nausea, vomiting, diarrhea, sore throat, cough, or shortness of breath. His son is currently sick with similar symptoms. Vitals:BP 117/77, HR 75, RR 16, SpO 97% RA.Exam: General: No acute distress.H EENT: Palpable frontal sinus tenderness . Oropharynx without erythema or exudate. No cervical lymphadeno fidelia.Lung s: Clear to auscultati on bilaterall y.CV: RRR, no murmurs.Ab domen: Soft, NT/ND.COVI D and Influenza tests: Negative.A llergies reviewed. Impression :Findings most consistent with acute viral upper respirator y infection with viral sinusitis and migraine exacerbati on. Symptom duration and negative flu/COVID testing support viral etiology. No features concerning for bacterial sinusitis or pneumonia. Patient is clinically stable, well-appea ring, and tolerating PO. Plan:Resum e Flonase daily for sinus inflammati on.May use sumatripta n for migraine as directed.S upportive care: saline nasal spray/rins es, warm compresses over sinuses, hydration, rest, OTC DayQuil/Ny Quil as needed.Rev iewed expected viral course.Red flags reviewed: worsening fever, persistent /worsening facial pain, severe headache, inability to tolerate fluids, visual changes, or symptoms not improving by day 7.Follow up with PCP or call us if symptoms persist beyond 1 week. Primary care, consider__ _ Dispositio n: We discussed the diagnostic uncertaint y of home visits and the risk associated with this. In this case, the patient and I felt this to be an acceptable and reasonable amount of risk given the benefit of avoiding an ED visit. We discussed the need to seek care urgently/e mergently in the setting of any new or worsening serious symptoms, particular lyworsenin g fever, persistent /worsening facial pain, severe headache, inability to tolerate fluids, visual changes, Health Concerns Section Related Observation LastModified by Organization Detai ls LastModified Time None Recorded Concern Status LastModified by Organization Details LastModified Time None Recorded Advance Directives Directive None Recorded Payers Insurance Date Sequence Insurance Name Policy Number Policy Smith Covered Member ID Smith Member ID Guarantor Name 05/12/2025 1 [facility] - DOS ON OR AFTER 2022 - DUAL ELIGIBLE - ASSISTED OPTIONS AND ONE CARE (MEDICARE REPLACEMENT/ADV ANTAGE - HMO) Kalichey Nicholas [id number] Kali Nicholas Notes Date Note Type Note [...] Colitis), Appendectomy PMH Reviewed at 09/15/2024 - 20: Allergies Reviewed at 09/15/2024 - : Comments: PMH- colitis Referral taken via Linux System Engineer. Patient calling in to place a referral, [...] He also reports being unable to sleep. Household Personal Assistant Organization Information for Roberta Wilson Business Legal Name: [employer]. Address: [address] [place] [address], Medical Sales: Max CROCKETT No.: [id number] Household Personal Assistant POC Test Results from Roberta Wilson Rapid strep test (20:56:47) Strep: - ..................... ..................... ..................... ..................... ..................... ..................... ............... Household Personal Assistant Note From Roberta Wilson: Sent to a [...] pink, warm, dry; Rapid strep test: neg; [facility] consulted and orders Tamiflu 75mg PO. [facility] sends script to pt's pharmacy for Tamiflu to start tomorrow. Tamiflu 75mg PO administered without incident. Red flags discussed. Pt has no further questions. [facility] Lab Orders: rapid strep group A, throat: Performed ..................... ..................... ..................... ..................... ..................... ..................... ............... [facility] Consulted: Rhett Menendez ..................... ..................... ..................... ..................... ..................... ..................... ............... Disposition: Fulfilled Rhett Menendez MD [address] [place] [address],[address], [place], [address], [facility] 09/20/2024 21:55:36 02/08/2025 text/html CRC Nurse Triage Notes (Breanna Kay): Reason For Request: Pt reporting having diarrhea since last night through today, which has been causing abdominal pain Patient Reports: Vague abdominal pain greater than 24 hours; Diarrhea no blood in stool; Inability to tolerate foods, fluids or daily medicationsDenies: Sharp focal or diffuse abdominal pain Vomiting blood/coffee ground material Bloating, jaundice new onset with pain Nausea and vomiting greater than 2 hours with abdominal pain Tearing pain that radiates to back Food Impaction Constipation Nausea with or without vomiting Chief Complaints: DiarrheaPMH: Diabetes Mellitus Type 2, Sleep Apnea, Inflammatory Bowel Disease (Crohn's Disease, Ulcerative Colitis), Appendectomy, Hernia Repair, Chronic Obstructive Pulmonary Disease (COPD)PMH Reviewed at 02/08/2025:58Allergies Reviewed at 02/08/2025:58Comments: 64 y.o male complains of DiarrheaPatient stated symptoms started last nightlast night stomach started with hyperactive bowel sounds and gasDiarrhea started 12 times since night no visible and also has hiccups.denies any nausea or vomiting but states everything he eats or drinks goes right through him.denies any fever endorses chills, fatigue, and weaknesscomplains of mild discomfort in the upper abdomen a bit of bloatinghx of hernia repair mesh- 6 weeks ago. - no issues had constipation at first but nothing now.patient does not have anything to try to make him feel better.requesting insted visit. I provided information on the mobile health provider response time and advised the patient and/or caregiver to monitor reported signs and symptoms. I discussed the warning signs of when to seek emergency care. ..................... ..................... ..................... ..................... ..................... ..................... ............... Household Personal Assistant Note From Moe Kat: Dispatched to the call address for the male with diarrhea. Pt states he had hernia repair surgery a few weeks ago and everything has been fine but this morning he woke up with diarrhea and has had many episodes of it. He states he cannot eat or drink anything without having to run to the bathroom a few moments later. He denies black or blood [...] from prior experience. Diarrhea Pt was assessed. [facility] consulted. ED advised for further work up and possible treatment. Pt agreeable. 911 called for the Pt, I remained on scene until EMS arrived. Pt transfer of care and report given to EMS crew. Pt transported to . ALL times are approx. ..................... ..................... ..................... ..................... ..................... ..................... ............... [facility] Consulted: Adore Kaufman ..................... ..................... ..................... ..................... ..................... ..................... ............... Disposition: Radha Adore Kaufman MD [address] [facility],[address], [place], [address], [facility] [employer] 02/08/2025 20:57:02 05/12/2025 text/html ROS as noted in the HPI CRC Nurse Triage Notes (Breanna Kay): Reason For Request: headache/congestion Patient Reports: Sinus infection Denies: Sudden onset of dental pain, unable to manage own secretions Nosebleed lasting longer than one hour; unable to stop bleeding Throat swelling/difficult swallowing Dental pain and fever, able to maintain secretions Conjunctivitis External Ear concerns Chief Complaints: Headache, Common Cold PMH: Diabetes Mellitus Type 2, Sleep Apnea, Inflammatory Bowel Disease (Crohn's Disease, Ulcerative Colitis), Appendectomy, Hernia Repair, Chronic Obstructive Pulmonary Disease (COPD) PMH Reviewed at 05/12/2025: Allergies Reviewed at 05/12/2025:36 Comments: 64 y.o male complains of Headache, Common Cold Patient self referring Patient reports symptoms over the past few days has had headaches hx of migraine, severe sinus pressure over his eyes and nasal congestion. endorses body aches endorses fever and chills at night denies any nausea/vomiting or loose stool denies any sore throat or coughing son is sick with similar symptoms Has not tried anything to help him feel better and states hes out of his migraine medicaiton. requesting [facility] visit. I provided information on the mobile health provider response time and advised the patient and/or caregiver to monitor reported signs and symptoms. I discussed the warning signs of when to seek emergency care. Household Personal Assistant Organization Information for Edison Bearden Business Legal Name: [facility] Transportation Address: [address] [place] [address], [place] [address], Medical Sales: Michael Davis MD CLIA No.: [id number] Household Personal Assistant POC Test Results from Edison Bearden [facility] Rapid COVID antigen (17:58:27) COVID: - Rapid influenza antigen (17:58:28) Flu: - ..................... ..................... ..................... ..................... ..................... ..................... ............... Household Personal Assistant Note From Edison Bearden: [facility] visit for male patient with complaint of sinus pain and pressure. Patient reports symptoms have been happening for the last 2 3 days. Patient has tried bvcr-wpn-[id number] DayQuil/NyQuil generics with some relief. Patient also has history of migraines and was recently prescribed sumatriptan. Patient presents in no obvious distress. Vital signs taken as listed. Lungs cleared bilaterally. Patient swabbed for flu and Covid and found to be negative. Patient did have palpable sinus tenderness. Consulted with [facility] who advised patient to try sumatriptan and regular use of Flonase as he has not been using recently. Pt advised to call back if no improvement 7 days after symptom onset. [facility] Lab Orders: rapid flu (A+B): Performed rapid SARS CoV 2 Ag, QL IA, respiratory specimen: Performed ..................... ..................... ..................... ..................... ..................... ..................... ............... [facility] Consulted: Surinder Sanabria ..................... ..................... ..................... ..................... ..................... ..................... ............... Disposition: Fulfilled SURINDER SANABRIA MD [address] [facility],[address], [place], [address], [place] - ChelailePRAKASH, STEPHANIE 05/12/2025 19:59:28
--- OUTSIDE RECORDS SUMMARY | 2025-05-17 02:41 | XMS_ITS | Continuity of Care Document ---
Author Organization [facility] Address [address] [place] [id number] Care Team Providers Care Plywood Patcher Name Role Phone HIM CCA OTHER NATASHA CORBETT Primary Care Provider Assessment No assessment recorded. Plan of Treatment Reminders Order Date Submit Date Provider Last Modified By Organization Details Last Modified Time Details Appointments None recorded. Lab rapid flu (A+B) 2024 025 [facility], [address] [place] [address], [id number] 20:38:36 rapid SARS CoV 2 Ag, QL IA, respiratory specimen 2024 025 [facility], [address] [place] [address], [id number] 20:38:15 Referral None recorded. Procedures None recorded. Surgeries None recorded. Imaging None recorded. Medication Orders None recorded. Patient TargetsNo targets recorded. Patient InstructionsNo instructions recorded. Reason for Referral None Reported. Results Created Date Observation Date Name Description Value Unit Range Abnormal Flag Note LastModifiedBy Organization Detail LastModifiedTime Result Notes None recorded. Medical Equipment None Reported. Allergies Allergen ID Allergen Name Allergen Category Reaction Reaction Severity Criticality Documentation Date Start Date Code Code System Note Provider Name and Address Organization Details Recorded Time 65208 Product containin g penicilli n (product) medicatio n Not available Not available Not available 09/15/2024 53808 8001 SNOMED Not Available [facility] - production 20:03:25 27930 penicilli n G Not available rash Not available high 05/12/20252017 7980 RxNorm Other react ion(s ): Rash Not Available [facility] External Data Service - prod 19:20:49 Medications [...] t Available Vitals Date Recorded Heart rate Oxygen saturation Oxygen saturation in Arterial blood by Pulse oximetry Body weight Respiratory rate Body height Systolic And Diastolic Provider Name and Address Organization Details Last Updated DateTime 5 75 /min 97 % 97 % 58690.4 4 g 16 /min 175.26 cm 117/77 mm[Hg] Not Available [facility] - production 5 17:50:22 Social History None recorded. Functional Status None recorded. Mental Status None recorded. Family History Nothing Reported. Medical History No medical history recorded. Past Encounters Encounter ID Performer Location Encounter Start Date Encounter Closed Date Diagnosis/Indication Diagnosis SNOMED-CT Code Diagnosis ICD10 Code Diagnosis IMO Codes Diagnosis Note [id number] SURINDER MCLEAN MD [facility] ED Medical [facility] [address] [place] [address] 05/12/2025 17:44:22 05/13/2025 12:00:28 Sinus headache [id number] R51.9 763231 Evaluation in the field was performed by my flat examiner colleague, as noted above, I provided real-time [...] by Organization Details LastModified Time None Recorded Payers Encounter Date Sequence Insurance Name Policy Number Policy Smith Covered Member ID Smith Member ID Guarantor Name 05/12/2025 1 [facility] - DOS ON OR AFTER 2022 - DUAL ELIGIBLE - [facility] OPTIONS AND ONE CARE (MEDICARE REPLACEMENT/ADV ANTAGE - HMO) Kali Nicholas [id number] Kali Nicholas Notes Date Note Type Note Provider Name and Address Organization Details Recorded Time 05/12/2025 text/html ROS as noted in the [...] Obstructive Pulmonary Disease (COPD) PMH Reviewed at 05/12/2025:36 Allergies Reviewed at 05/12/2025:36 Comments: 64 y.o [...] hes out of his migraine medicaiton. requesting insted visit. I provided information on the mobile health provider response time and advised the patient and/or caregiver to monitor reported signs and symptoms. I discussed the warning signs of when to seek emergency care. Power Systems Engineer Organization Information for Edison Bearden Business Legal Name: [facility] Address: [address] [place] [address], Aircraft Mechanic: Michael Davis MD [facility] No.: [id number] Power Systems Engineer POC Test Results from Edison Bearden Rapid COVID antigen (17:58:27) COVID: - Rapid influenza antigen (17:58:28) Flu: - .................... .................... .................... .................... .................... .................... .................... . Power Systems Engineer Note From Edison Bearden: [facility] visit for male patient with complaint of sinus pain and pressure. Patient reports symptoms have been happening for the last 2 3 days. Patient has tried obqd-vte-voswioh DayQuil/NyQuil generics with some relief. Patient also has history of migraines and was recently prescribed sumatriptan. Patient presents in no obvious distress. Vital signs taken as listed. Lungs cleared bilaterally. Patient swabbed for flu and Covid and found to be negative. Patient did have palpable sinus tenderness. Consulted with [facility] who advised patient to try sumatriptan and regular use of Flonase as he has not been using recently. Pt advised to call back if no improvement 7 days after symptom onset. [facility] Lab Orders: rapid flu (A+B): Performed rapid SARS CoV 2 Ag, QL IA, respiratory specimen: Performed .................... .................... .................... .................... .................... .................... .................... . [facility] Consulted: Surinder Mclean .................... .................... .................... .................... .................... .................... .................... . Disposition: Radha MCLEAN MD [address] [facility],[address], [place], [address], [employer] 05/12/2025 19:59:28
== END 2025-05-16 14:17 | disposition home or self-care (01) ==
LOC: HO.ENCR 13:35
PROVIDERS: PCP Internal Medicine; Visit Provider Physician Assistant
DX: Z13.9 Encounter for screening, unspecified (principal); E11.8 Type 2 diabetes mellitus with unspecified complications; E11.9 Type 2 diabetes mellitus without complications; E78.5 Hyperlipidemia, unspecified

== ENCOUNTER → 2025-05-16 13:34 | Outpatient (BNVA) | payer OTHER, SELFPAY | PROVIDERS: PCP Internal Medicine; Visit Provider Physician Assistant | DX: E11.9 Type 2 diabetes mellitus without complications (principal); E78.5 Hyperlipidemia, unspecified; Z79.899 Other long term (current) drug therapy | CPT/HCPCS: 82947; 83036; 99212 ==

== ENCOUNTER 2025-05-18 12:11 | Outpatient (AMB) | payer OTHER, SELFPAY ==
--- OUTSIDE RECORDS SUMMARY | 2024-01-14 10:30 | XMS_ITS ---
Author Organization [facility] Address [address] [facility] [place] [address] Care Team Providers Care Monomer Purification Operator Name Role Phone Shelli Moore MD Primary Care Provider Unavail able Juany Munson Unavailable [phone] Medications Medication SIG (Take, Route, Frequency, Duration) Notes Start Date End Date Status Gas Relief Extra Strength 125 MG Oral; Duration: 30 Days Acti ve Ciclopirox Olamine 0.77 % 1 application Externally Twice a day; Duration: 30 days Active Albuterol Sulfate 108 (90 Base) MCG/ACT 1 puff as needed Inhalation every 4 hrs Active Bisacodyl 5 MG 1 tablet as needed O rally Once a day Active buPROPion HCl ER (XL) 300 MG 1 tablet in the morning Orally Once a day Active Dexilant 60 MG 1 capsule Orally Onc e a day Active Dicyclomine HCl 20 MG 1 tablet Orally Th ree times a day Active Escitalopram Oxalate 10 MG 1 tablet Oral ly Once a day Active clonazePAM 1 MG 1 tablet Orally Once a day Active Clotrimazole-Betamethasone 1-0.05 % 1 application Externally Twice a day Active Montelukast Sodium 10 MG 1 tablet Orally Once a day Active Mesalamine 1.2 GM 2 tablets with a ml l Orally Once a day Active metFORMIN HCl 500 MG 1 tablet with a ml l Orally Once a day Active Proctosol HC 2.5 % 1 application Foreign Trade Teacher ally Twice a day Active oxyBUTYnin Active Atorvastatin Calcium 20 MG 1 tablet Oral ly Once a day; Duration: 30 day(s) Active Meloxicam 7.5 MG 1 tablet Orally Once a day; Duration: 30 day(s) Active Propranolol HCl 80 MG 1 tablet Orally Tw ice a day Active Incruse Ellipta 62.5 MCG/ACT 1 puff Inhalation Once a day Active Tadalafil 20 MG 1 tablet as needed O rally Once a day Active Encounters Encounter Location Date Provider Diagnosis [facility] [address] [address] [place] [address] 01/14/2024 Juany Munson Plan Of Treatment Next Appt Details Provider Name:Juany luna, 07/19/2025 01:00:00 PM, [address] [place], [address], Progress Notes * Viridiana MUNOZOB: (64 yo M)Acc No.[id number]:01/14/2024 Progress Note Patient: Kali GORDILLO Provider: Paula Munson DPM :1960 A ge:63 Y S ex:Male Date:01/14/2024 Address: [address] [facility] Pcp:Shelli Moore MD Subjective: * Chief Complaints: * * HPI: A t Risk footcare: Pt States Last PCP Visit: D ate 1 08/12/2022 * Medical History: * Medications: T aking Meloxicam 7.5 MG Tablet 1 tablet Orally Once a day , Taking Atorvastatin Calcium 20 MG Tablet 1 tablet Orally Once a day , Taking Tadalafil 20 MG Tablet 1 tablet as needed Orally Once a day , Taking Incruse Ellipta 62.5 MCG/ACT Aerosol Powder Breath Activated 1 puff Inhalation Once a day , Taking Propranolol HCl 80 MG Tablet 1 tablet Orally Twice a day , Taking oxyBUTYnin , Taking Montelukast Sodium 10 MG Tablet 1 tablet Orally Once a day , Taking metFORMIN HCl 500 MG Tablet 1 tablet with a meal Orally Once a day , Taking Mesalamine 1.2 GM Tablet Delayed Release 2 tablets with a meal Orally Once a day , Taking Proctosol HC 2.5 % Cream 1 application Externally Twice a day , Taking Escitalopram Oxalate 10 MG Tablet 1 tablet Orally Once a day , Taking Dicyclomine HCl 20 MG Tablet 1 tablet Orally Three times a day , Taking Dexilant 60 MG Capsule Delayed Release 1 capsule Orally Once a day , Taking Clotrimazole-Betamethasone 1-0.05 % Cream 1 application Externally Twice a day , Taking clonazePAM 1 MG Tablet 1 tablet Orally Once a day , Taking buPROPion HCl ER (XL) 300 MG Tablet Extended Release 24 Hour 1 tablet in the morning Orally Once a day , Taking Bisacodyl 5 MG Tablet Delayed Release 1 tablet as needed Orally Once a day , Taking Albuterol Sulfate 108 (90 Base) MCG/ACT Aerosol Powder Breath Activated 1 puff as needed Inhalation every 4 hrs , Taking Ciclopirox Olamine 0.77 % Cream 1 application Externally Twice a day , Taking Gas Relief Extra Strength 125 MG Capsule Oral Objective: * Vitals: Assessment: Plan: * Treatment: * Images: * The named appointment provid er may or may not be the originator of this progress note, and it is not deemed complete until electronically signed by the appointment provider. Sign off status: Pending * Provider: Paula Munson DPM Date: 0 01/14/2024 Generated for Tiesha rodriguez/Pan/Kirk on: 1 07/18/2024 11:15 PM EST History and Physical Notes * HPI (History of Present Illness) Category Sub-Category Detail Notes Category Not es At Risk footcare Pt States Last PCP Visit: Date: 3
--- OUTSIDE RECORDS SUMMARY | 2024-04-06 04:30 | XMS_ITS ---
Author Organization [facility] Address [address] [place] [address] Care Team Providers Care Belt Molder Name Role Phone Shelli Moore MD Primary Care Provider Unavail able Juany Munson Unavailable [phone] REASON FOR VISIT seen 04/01/2024 Encounters Encounter Location Date Provider Diagnosis [address] [address] 04/06/2024 Juany Munson Plan Of Treatment Next Appt Details Provider Name:Juany luna, 07/19/2025 01:00:00 PM, [address] [place] [address], [phone], Progress Notes * Huber MUNOZArianaOB: (64 yo M)Acc No.[id number]:04/06/2024 Progress Note Patient: Kali GORDILLO Provider: Paula Munson DPM :1960 A ge:63 Y S ex:Male Date:04/06/2024 Address:[address] [id number] Pcp:Shelli Moore MD Subjective: * Chief Complaints: * 1 . Seen 04/01/2024. * Medical History: Objective: * Vitals: Assessment: Plan: * Treatment: * Images: * The named appointment provid er may or may not be the originator of this progress note, and it is not deemed complete until electronically signed by the appointment provider. Sign off status: Pending * Provider: Paula Munson DPM Date: Generated for Tiesha Pryor/Kirk on: 07/18/2024 11:15 PM EST
--- OUTSIDE RECORDS SUMMARY | 2024-11-19 08:00 | XMS_ITS ---
Author Organization [facility] Address [address] [place] [address] Care Team Providers Care Boat Oar Maker Name Role Phone Teresa ELLIS, Shelli Primary Care Provider Unavail Juany Wong Unavailable [phone] Encounters Encounter Location Date Provider Diagnosis [address] [address] 11/19/2024 Juany Munson Plan Of Treatment Next Appt Details Provider Name:Junay luna, 07/19/2025 01:00:00 PM, [address] [place] [address], [phone], Progress Notes * Huber MUNOZArianaOB: (64 yo M)Acc No.[id number]:11/19/2024 Progress Note Patient: Kali GORDILLO Provider: Paula Munson DPM :1960 A ge:64 Y S ex:Male Date:11/19/2024 Address:[address] [place], [place] Pcp:Shelli Moore MD Subjective: * Chief Complaints: * * Medical History: Objective: * Vitals: Assessment: Plan: * Treatment: * Images: * The named appointment provid er may or may not be the originator of this progress note, and it is not deemed complete until electronically signed by the appointment provider. Sign off status: Pending * Provider: Paula Munson DPM Date: 0 11/19/2024 Generated for Tiesha Pryor/Kirk on: 07/18/2024 11:15 PM EST
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
--- OUTSIDE RECORDS SUMMARY | 2025-05-18 23:15 | XMS_ITS | Continuity of Care Document ---
Author Name instED, Medical Address [address] [place] [address] Organization Unknown Address [address] [place] [address] Medications No known medications Problems No known problems
--- OUTSIDE RECORDS SUMMARY | 2025-05-18 23:15 | XMS_ITS | Encounter Summary ---
Author Organization [facility] Address [address] [place] [address] Encounters * CPT with Medical instED at [facility] on 2025-05-12 { reasonForRequest : headache/congestion , patientReports : Sinus infection , denies :[ Sudden onset of dental pain, unable to manage own secret ions , Nosebleed lasting longer than one hour; unable to stop bleeding , Throat swelling/difficult swallowing , Dental pain and fever, able to maintain secretions ,"Conjunctivitis , External Ear concerns ], chiefComplaints : Headache, Common Cold , pmh : Diabetes Mellitus Type 2, Sleep Apnea, Inflammatory Bowel Disease (Crohn's Disease, Ulcerative Colitis), Appendectomy, Hernia Repair, Chronic ObstructivePulmonary Disease (COPD) , allergies : Penicillins , otherAllergies&qu ot;:null, painAssessment : , visitOutcome : , additionalComments : 64 y.o male complains of Headache, Common Cold\nPatient self referring\nPatient reports symptoms over the past few days has had headaches hx of migraine, severe sinus pressureover his eyes and nasal congestion. \nendorses body aches endorses fever and chills at night\ndenies any nausea/vomiting or loose stool\ndenies any sore throat or coughing\nson is sick with similar symptoms \nHas not tried anything to help him feel better and states hes out of his migraine medicaito n.\nrequesting insted visit. \n\n\n\nI provided information on the mobile health provider response time and advised the patient and/or caregiver to monitor reported signs and symptoms. I discussed the warning signs of when to seek emergency care. } InstED visit for male patient with complaint of sinus pain and pressure. Patient reports symptoms have been happening for the last 2???3 days. Patient has tried jdsa-gwv-rthofmk DayQuil/NyQuil generics with some relief. Patient also has history of migraines and was recently prescribed sumatriptan. Patient presents in no obvious distress. Vital signs taken as listed. Lungs cleared bilaterally. Patient swabbed for flu and Covid and found to be negative. Patient did have palpable sinus tenderness. [place] [facility] [place] advised patient to try sumatriptan and regular use of Flonase as he has notbeen using recently. Pt advised to call back if no improvement 7 days after symptom onset. IV_(FLUIDS_AND/OR_MEDICATION), MEDICATION_IM, EKG, POC_BLOODWORK, POC_FLU_STREP, COVID_TEST Written by Medical instED on 2025-05-12
--- OUTSIDE RECORDS SUMMARY | 2025-05-18 23:15 | XMS_ITS | Patient Health Record ---
Author Organization [facility] Address [address] [place] [address] Care Team Providers Care Makeup Editor Name Role Phone Teresa ELLIS, Shelli Primary Care Provider Unavail able Juany Munson Unavailable [phone] Allergies Allergen (clinical drug ingredient) Drug/Non Drug Allergy documented on EMR Reaction Allergy Type Onset Date Status Substance with penicillin structure and antibacterial mechanism of action (substance) Penicillins skin erruptions Drug Allergy Active Results Component Value Reference Range Notes HEMOGLOBIN A1C (GLYCOHEMOGLO BIN) Reviewed date:09/01/2024 11:37:41 AM Interpretation: Performing Lab: Notes/Report: HEMOGLOBIN A1C % (HH) 6.6 HEMOGLOBIN A1C (GLYCOHEMOGLO BIN) Reviewed date:04/12/2025 09:59:07 AM Interpretation: Performing Lab: Notes/Report: HEMOGLOBIN A1C % (HH) 6.7 Reason For Referral No Information Medications Medication SIG (Take, Route, Frequency, Duration) Notes Start Date End Date Status Albuterol Sulfate 108 (90 Base) MCG/ACT 1 puff as needed Inhalation every 4 hrs Active buPROPion HCl ER (XL) 300 MG 1 tablet in the morning Orally Once a day Active clonazePAM 1 MG 1 tablet Orally Once a day Active Dexilant 60 MG 1 capsule Orally Onc e a day Active Dicyclomine HCl 20 MG 1 tablet Orally Th ree times a day Not-Taking Escitalopram Oxalate 10 MG 1 tablet Orally Once a day Active Proctosol HC 2.5 % 1 application [employer] ally Twice a day Active Mesalamine 1.2 GM 2 tablets with a ml l Orally Once a day Active Montelukast Sodium 10 MG 1 tablet Orally Once a day Active Ciclopirox Olamine 0.77 % 1 application Externally Twice a day; Duration: 30 days Active Ketoconazole 2 % 1 application Apply a thin layer to externally to feet, even between toes Twice a day; Duration: 30 days Active Clotrimazole-Betamethaso ne 1-0.05 % 1 application Externally Twice a day Not-Taking Jardiance Not-Taking Bisacodyl 5 MG 1 tablet as needed Orally Once a day PRN Not-Taking metFORMIN HCl 500 MG 1 tablet with a ml l Orally Once a day Not-Taking Extra Depth Orthopedic Shoes (1 Pair) with Customized Heat Molded Multidensity Innersoles (3 Pair) as directed Dx: NIDDM/Polyneuropathy (E11.42), Hammertoe Foot Deformity (M20.41,M20.42), Preulcerative Skin Lesion(s) (L85.1 09/01/2024 Active oxyBUTYnin Active Gas Relief Extra Strength 125 MG Oral; Duration: 30 Days A ctive Propranolol HCl 80 MG 1 tablet Orally Tw ice a day Active Incruse Ellipta 62.5 MCG/ACT 1 puff Inhalation Once a day Active Tadalafil 20 MG 1 tablet as needed Orally Once a day PRN Active Atorvastatin Calcium 20 MG 1 tablet Orally Once a day; Duration: 30 day(s) Active Meloxicam 7.5 MG 1 tablet Orally Once a day; Duration: 30 day(s) PRN Not-Sami ing Xarelto Active Blood Thinners Activ e Trulicity 1.5 MG/0.5ML as directed Subcutaneous Active Ammonium Lactate 12 % 1 application Exte rnally Twice a day; Duration: 30 days 05/09/2025 Active Immunizations Vaccine Route Administration Date Status [...] Problem Acquired hammer toe of right foot (8671363320339167 ) Other hammer toe(s) (acquired), right foot (M20.41) Active confirmed Problem Acquired hammer toe of left foot (1443532752928884 ) Other hammer toe(s) (acquired), left foot (M20.42) Active confirmed Problem Plantar wart of left foot (1218826700779018 2) Plantar wart (B07.0) Active confirmed Problem Polyneuropathy due to diabetes mellitus (82391907) Type 2 diabetes mellitus with polyneuropathy (E11.42) Active confirmed Vital Signs Blood pressure diastolic 92 mm Hg 04/12/2025 Height 5ft 9in in 04/12/2025 Blood pressure systolic 117 mm Hg 04/12/2025 Weight 200 lbs 04/12/2025 BMI 29.53 kg/m2 04/12/2025 Encounters Encounter Location Date Provider Diagnosis [address] [address] 06/15/2024 Juany Perica Tinea pedis of both feet B35.3 ; Tinea unguium B35.1 ; Type 2 diabetes mellitus with polyneuropathy E11.42 ; Plantar wart B07.0 and Pain in left foot M79.[address] [address] 09/01/2024 Juany Perica Tinea pedis of both feet B35.3 ; Other hammer toe(s) (acquired), right foot M20.41 ; Tinea unguium B35.1 ; Type 2 diabetes mellitus with polyneuropathy E11.42 ; Plantar wart B07.0 ; Pain in left foot M79.672 and Other hammer toe(s) (acquired), left foot M20.[address] [address] 01/21/2025 Juany Perica Pain in left foot M79.672 ; Type 2 diabetes mellitus with polyneuropathy E11.42 ; Tinea unguium B35.1 and Plantar wart B07.[address] [place] [address] 04/12/2025 Juany Munson Type 2 diabetes mellitus with polyneuropathy E11.42 ; Tinea pedis of both feet B35.3 ; Pain in left foot M79.672 ; Tinea unguium B35.1 and Plantar wart B07.0 [facility] [address] [address] 11/17/2024 Juany Munson [facility] [address] [address] 05/09/2025 Juany Jeimy Tinea pedis of both feet B35.3 Assessments Encounter Date Diagnosis (ICD Code) Assessment Notes Treatment Notes Treatment Clinical Notes Section Notes 06/15/2024 Tinea unguium (ICD-10 - B35.1) 06/15/2024 [...] diabetes mellitus with polyneuropathy (ICD-10 - E11.42) 04/12/2025 Type 2 diabetes mellitus with polyneuropathy (ICD-10 - E11.42) 04/12/2025 Tinea pedis of both feet (ICD-10 - B35.3) Patient Educated with: ATHELETE .pdf (ATHELETE .pdf) 05/09/2025 Tinea pedis of both feet (ICD-10 - B35.3) 04/12/2025 Pain in left foot (ICD-10 - M79.672) 01/21/2025 Tinea unguium (ICD-10 - B35.1) 09/01/2024 Tinea unguium (ICD-10 - B35.1) 06/15/2024 Type 2 diabetes mellitus with polyneuropathy (ICD-10 - E11.42) 06/15/2024 Plantar wart (ICD-10 - B07.0) 01/21/2025 Plantar wart (ICD-10 - B07.0) 09/01/2024 Type 2 diabetes mellitus with polyneuropathy (ICD-10 - E11.42) 04/12/2025 Tinea unguium (ICD-10 - B35.1) 04/12/2025 Plantar wart (ICD-10 - B07.0) 06/15/2024 Pain in left foot (ICD-10 - M79.672) 09/01/2024 Plantar wart (ICD-10 - B07.0) 09/01/2024 Pain in left foot (ICD-10 - M79.672) 09/01/2024 Other hammer toe(s) (acquired), left foot (ICD-10 - M20.42) Plan Of Treatment Next Appt Details Provider Name:Juany luna, 07/19/2025 01:00:00 PM, [address] [place] [address], [phone], Insurance Providers Payer Name Payer Address Payer Phone Subscriber Number Group Number Insured Name Patient Relationship to Insured Coverage Start Date Coverage End Date [facility] [employer] Claims [address] [facility] [place] [id number] Kali Munoz Self - patient is the insured Medical (General) History Medical History History ICD Code Anxiety Back,Hip,and Knee pain covid-19 Depression Diabetic Headaches/Migraines Hepatitis Hiatal hernia Lung disease Psychiatric disorder Reflux ( GERD) sinusitis COPD Colitis Chicken pox Cholesterol Surgical History Surgery Date(Month/Year) cervical (spine?) surgery 2017 hernia [phone] peritonitis 2019 hernia 10/22
--- OUTSIDE RECORDS SUMMARY | 2025-05-18 23:15 | XMS_ITS | Continuity of Care Document ---
Author Name instED, Medical Address [address] [place] [id number] Organization Unknown Address [address] [place] [address] Medications No known medications Problems No known problems
--- OUTSIDE RECORDS SUMMARY | 2025-05-18 23:15 | XMS_ITS | Encounter Summary ---
Author Organization [facility] Address [address] [place] [address] Encounters * CPT with Medical instED at [employer] on 2025-02-09 { reasonForRequest : Pt reporting [...] report givento EMS crew. Pt transported to [facility]. ALL times are approx. IV_(FLUIDS_AND/OR_MEDICATION), POC_BLOODWORK, ORTHOSTATIC_VITAL_SIGNS, PO_MEDICATION Written by Medical instED on 2025-02-09
--- OUTSIDE RECORDS SUMMARY | 2025-05-18 23:15 | XMS_ITS | Data Portability ---
Author Organization [facility], [email or web address] Address [address] [place] [address] Care Team Providers Care Dry Kiln Feeder Name Role Phone HIM CCA OTHER NATASHA CORBETT Primary Care Provider [phone] Assessment Encounter Date Assessment Date Assessment LastModified [...] Assessment and Plan as documented by the Etl Developer. Patient given the opportunity to ask questions. Our service contacted for an assessment of: diarrhea As per above, patient with TNTC foul-smelling, oily BMs with diarrhea consistency after a hernia surgery with likely prabha=op abx and FB placement Per cancer center director on the scene, VSS. Please read the cancer center director note for their exam findings. Impression: Likely C. diff - hospital acquired after recent surgery. Unable to obtain a sample for PCR/toxin, unable to obtain a WBC or obtain a KUB -> for those reasons we elected to have the patient present to ED for care but necessarily admission depending on w/u Plan: expect call to [facility] ED Allergies: Reviewed [email or web address] Not available 02/08/2025 20:56:54 Plan of Treatment Reminders Order Date Submit Date Provider Last Modified By Organization Details Last Modified Time Details Appointments None recorded. Lab rapid flu (A+B) 2024 [facility], [address] [place] [address], [id number] 20:38:36 rapid SARS CoV 2 Ag, QL IA, respiratory specimen 2024 [facility], [address] [place] [address], [id number] 20:38:15 rapid strep group A, throat 2024 025 [facility], [address] [place] [address], [id number] 21:55:34 Referral None recorded. Procedures None recorded. Surgeries None recorded. Imaging None recorded. Medication Orders oseltamivir 75 mg capsule 2024 [facility], [facility] #[id number], [address] [place], [place], [phone], 21:08:58 Tamiflu 75 mg capsule 2024 [facility] #[id number], [address], [place], [id number], 21:09:03 Patient TargetsNo targets recorded. Patient InstructionsNo instructions recorded. Reason for Referral None Reported. Results Created Date Observation Date Name Description Value Unit Range Abnormal Flag Note LastModifiedBy Organization Detail LastModifiedTime 09/16/1909/15/2024 rapid strep group A, throa t Strep negati ve Not Available [facility] ed [address] [place] [address], [id number] 09/15/2024 21:14:27 Result Notes None recorded. Medical Equipment None Reported. Allergies Allergen ID Allergen Name Allergen Category Reaction Reaction Severity Criticality Documentation Date Start Date Code Code System Note Provider Name and Address Organization Details Recorded Time 86663 Product containin g penicilli n (product) medicatio n Not available Not available Not available 09/15/2024 85833 8001 SNOMED Not Available [facility] - production 20:03:25 penicilli n G Not available rash Not available high 05/12/20252017 7980 RxNorm Other react ion(s ): Rash Not Available douglas - External Data Service - prod 19:20:49 [...] 5 75 /min 97 % 97 % 73840.4 4 g 16 /min 175.26 cm 117/77 mm[Hg] Not Available [facility] - production 17:50:22 Social History None recorded. Functional Status None recorded. Mental Status None recorded. Family History Nothing Reported. Medical History No medical history recorded. Past Encounters Encounter ID Performer Location Encounter Start Date Encounter Closed Date Diagnosis/Indication Diagnosis SNOMED-CT Code Diagnosis ICD10 Code Diagnosis IMO Codes Diagnosis Note [id number] Rhett Menendez MD Main - [address] [address] 09/15/2024 21:01:19 09/20/2024 22:21:01 Influenza caused by Influenza A virus 354368505 J09.X2 [id number] Adore Kaufman MD Main-[facility] [address] [address] 02/08/2025 19:54:36 02/09/2025 10:10:58 Acute diarrhea 692847781 R19.7 [id number] SURINDER [facility] [address] [address] 05/12/2025 17:44:22 05/13/2025 12:00:28 Sinus headache 9350421 R51.9 [id number] Evaluation in the field was performed by my cancer center director colleague, as noted above, I provided real-time [...] Smith Member ID Guarantor Name 05/12/2025 1 [facility] - DOS ON OR AFTER 2022 - DUAL ELIGIBLE - FDC OPTIONS AND ONE CARE (MEDICARE REPLACEMENT/ADV ANTAGE - HMO) Kalichey Nicholas [id number] Kali Nicholas Notes Date Note Type Note [...] : Comments: PMH- colitis Referral taken via Refrigeration Engineer. Patient calling in to place a [...] He also reports being unable to sleep. Etl Developer Organization Information for Roberta Wilson Business Legal Name: [employer]. Address: [address] [place] [address], Loan Review Analyst: Max CROCKETT No.: [id number] Etl Developer POC Test Results from Roberta Wilson Rapid strep test (20:56:47) Strep: - ..................... ..................... ..................... ..................... ..................... ..................... ............... Etl Developer Note From Roberta Wilson: Sent to a [...] pink, warm, dry; Rapid strep test: neg; [facility] consulted and orders Tamiflu 75mg PO. [facility] sends script to pt's pharmacy for Tamiflu to start tomorrow. Tamiflu 75mg PO administered without incident. Red flags discussed. Pt has no further questions. [facility] Lab Orders: rapid strep group A, throat: Performed ..................... ..................... ..................... ..................... ..................... ..................... ............... [facility] Consulted: Rhett Menendez ..................... ..................... ..................... ..................... ..................... ..................... ............... Disposition: Fulfilled Rhett Menendez MD [address] [place] [address],[address], [place], [address], [employer] 09/20/2024 21:55:36 02/08/2025 text/html CRC Nurse Triage [...] ..................... ..................... ..................... ..................... ..................... ..................... ............... Etl Developer Note From Moe Kat: Dispatched to the [...] from prior experience. Diarrhea Pt was assessed. [facility] consulted. ED advised for further work up and possible treatment. Pt agreeable. 911 called for the Pt, I remained on scene until EMS arrived. Pt transfer of care and report given to EMS crew. Pt transported to [facility]. ALL times are approx. ..................... ..................... ..................... ..................... ..................... ..................... ............... [facility] Consulted: Adore Kaufman ..................... ..................... ..................... ..................... ..................... ..................... ............... Disposition: Radha Adore Kaufman MD [address] [facility],[address], [place], [address], [facility] [employer] 02/08/2025 20:57:02 05/12/2025 text/html ROS as noted in the HPI CRC Nurse Triage Notes (Braenna Kay): Reason For Request: headache/congestion Patient Reports: [...] hes out of his migraine medicaiton. requesting our community hospital visit. I provided information on the mobile health provider response time and advised the patient and/or caregiver to monitor reported signs and symptoms. I discussed the warning signs of when to seek emergency care. Etl Developer Organization Information for Edison Bearden Business Legal Name: [facility] Transportation Address: [address] [place] [address], [place] [address], Loan Review Analyst: Michael Davis MD CLIA No.: [id number] Etl Developer POC Test Results from Edison Bearden NORMAN Rapid COVID antigen (17:58:27) COVID: - Rapid influenza antigen (17:58:28) Flu: - ..................... ..................... ..................... ..................... ..................... ..................... ............... Etl Developer Note From Edison Bearden: InstED visit for male patient with complaint of sinus pain and pressure. Patient reports symptoms have been happening for the last 2 3 days. Patient has tried nqgi-riq-pbisrwr DayQuil/NyQuil generics with some relief. Patient also has history of migraines and was recently prescribed sumatriptan. Patient presents in no obvious distress. Vital signs taken as listed. Lungs cleared bilaterally. Patient swabbed for flu and Covid and found to be negative. Patient did have palpable sinus tenderness. Consulted with [facility] who advised patient to try sumatriptan and regular use of Flonase as he has not been using recently. Pt advised to call back if no improvement 7 days after symptom onset. [facility] Lab Orders: rapid flu (A+B): Performed rapid SARS CoV 2 Ag, QL IA, respiratory specimen: Performed ..................... ..................... ..................... ..................... ..................... ..................... ............... [facility] Consulted: Surinder Sanabria ..................... ..................... ..................... ..................... ..................... ..................... ............... Disposition: Fulfilled SURINDER SANABRIA MD [address] [facility],[address], [place], [address], [place] - netomatPRAKASH, STEPHANIE 05/12/2025 19:59:28
== END 2025-05-18 12:55 | disposition home or self-care (01) ==
LOC: HO.HSM 12:11
PROVIDERS: PCP Internal Medicine; Visit Provider Registered Nurse
DX: G25.0 Essential tremor (principal); G43.909 Migraine, unspecified, not intractable, without status migrainosus; J32.9 Chronic sinusitis, unspecified
CPT/HCPCS: 99214

== ENCOUNTER → 2025-05-18 12:11 | Outpatient (BNVA) | payer OTHER, SELFPAY | PROVIDERS: PCP Internal Medicine; Visit Provider Registered Nurse | DX: G25.0 Essential tremor (principal); G43.909 Migraine, unspecified, not intractable, without status migrainosus; J32.9 Chronic sinusitis, unspecified | CPT/HCPCS: 99212 ==

== ENCOUNTER 2025-06-10 15:26 | Outpatient (REF) | payer OTHER, SELFPAY ==
--- OUTSIDE RECORDS SUMMARY | 2024-01-14 10:30 | XMS_ITS ---
Author Organization [facility] Address [address] [facility] [place] [address] Care Team Providers Care Log Sawyer Name Role Phone Shelli Moore MD Primary Care Provider Unavail able Juany Munson Unavailable [phone] Medications Medication SIG (Take, Route, Frequency, Duration) [...] Active Proctosol HC 2.5 % 1 application Falsework Builder ally Twice a day Active oxyBUTYnin Active [...] Active Encounters Encounter Location Date Provider Diagnosis [facility] [place] [address] [place] [address] 01/14/2024 Juany Munson Plan Of Treatment Next Appt Details Provider Name:Juany luna, 07/19/2025 01:00:00 PM, [address] [place], [address], Progress Notes * Viridiana MUNOZOB: (64 yo M)Acc No.[id number]:01/14/2024 Progress Note Patient: Kali GORDILLO Provider: Paula Munson DPM :1960 A ge:63 Y S ex:Male Date:01/14/2024 Address: [address] [facility] Pcp:Shelli Moore MD Subjective: * Chief Complaints: * * HPI: A t Risk footcare: Pt States Last PCP Visit: D ate: 1 08/12/2022 * Medical History: * Medications: [...] 01/14/2024 Generated for Tiesha rodriguez/Pan/Kirk on: 1 08/11/2024 08:18 PM EST History and Physical Notes * HPI (History of Present Illness) Category Sub-Category Detail Notes Category Not es At Risk footcare Pt States Last PCP Visit: Date:: 06/11/20 23
--- OUTSIDE RECORDS SUMMARY | 2024-04-06 04:30 | XMS_ITS ---
Author Organization [facility] Address [address] [place] [address] Care Team Providers Care Customer Advisor Name Role Phone Shelli Moore MD Primary Care Provider Unavail able Juany Munson Unavailable [phone] REASON FOR VISIT seen 04/01/2024 Encounters Encounter Location Date Provider Diagnosis [address] [address] 04/06/2024 Juany Munson Plan Of Treatment Next Appt Details Provider Name:Juany luna, 07/19/2025 01:00:00 PM, [address] [place] [address], [phone], Progress Notes * Hbuer MUNOZArianaOB: (64 yo M)Acc No.[id number]:04/06/2024 Progress Note Patient: Kali GORDILLO Provider: Paula Munson DPM :1960 A ge:63 Y S ex:Male Date:04/06/2024 Address:[address] [place] Pcp:Shelli Moore MD Subjective: * Chief Complaints: [...] DPM Date: Generated for Tiesha Pryor/Kirk on: 08/11/2024 08:17 PM EST
--- OUTSIDE RECORDS SUMMARY | 2024-11-19 08:00 | XMS_ITS ---
Author Organization [facility] Address [address] [place] [address] Care Team Providers Care Labor Mediator Name Role Phone Teresa ELLIS, Shelli Primary Care Provider Unavail Juany Wong Unavailable [phone] Encounters Encounter Location Date Provider Diagnosis [address] [address] 11/19/2024 Juany Munson Plan Of Treatment Next Appt Details Provider Name:Juany luna, 07/19/2025 01:00:00 PM, [address] [place] [address], [address], Progress Notes * Huber MUNOZArianaOB: (64 yo M)Acc No.[id number]:11/19/2024 Progress Note Patient: Kali GORDILLO Provider: Paula Munson DPM :1960 A ge:64 Y S ex:Male Date:11/19/2024 Address:[address] [place], [place] Pcp:Shelli Moore MD Subjective: * Chief Complaints: [...] 0 11/19/2024 Generated for Tiesha Pryor/Kirk on: 08/11/2024 08:17 PM EST
--- NOTE | ~2025-06-10 | CT_ITS ---
EXAMINATION: CT LOW-DOSE SCREENING CHEST WITHOUT CONTRAST CLINICAL INFORMATION: 64-year-old male, former smoker, quit 13 years ago, 36 pack years. Lung cancer screening. COMPARISON: [1924. TECHNIQUE: Multidetector volumetric CT imaging of the chest is performed on a Siemens SOMATOM Definition scanner without contrast using low dose technique. Additional 2D coronal and sagittal reformatted images and axial 3D maximum intensity projection (MIP) images are generated on the CT workstation. This CT examination was performed using dose optimization techniques as appropriate, variously including the following: *Automated exposure control *Adjustment of mA and/or kV according to patient size (this includes techniques or standardized protocols for targeted exams where dose is matched to indication/reason for exam; i.e. extremities or head) *Use of iterative reconstruction technique FINDINGS: PULMONARY NODULES: 3 mm pleural-based nodule right upper lobe laterally (series 4, image 41), unchanged. 3 mm nodule lateral right middle lobe (series 4, image 74), unchanged. 3 mm pleural-based nodule lateral right lower lobe (series 4, image 85), unchanged. 3 mm fissural nodule left major fissure (series 4, image 92), unchanged. This is likely an intrapulmonary lymph node. No new or enlarging pulmonary nodules. LUNGS: Lungs are well inspired bilaterally. There is mild centrilobular emphysema present. A cyst with surrounding groundglass attenuation in the right upper lobe is noted, unchanged (series 5, image 53). This is probably postinflammatory. Thin-walled lung cyst in the right upper lobe abutting the hilum (series 5, image 60), unchanged. No consolidations or interstitial changes. Small airways appear normal. Central airways are patent. No effusions or pneumothorax. MEDIASTINUM: Imaged thyroid is normal. There is no adenopathy or mass. Heart size is normal. No pericardial effusion. Aorta is normal in caliber and course. 2 vessel branching pattern. Pulmonary trunk is normal in size. Esophagus is normal in appearance. CORONARY ARTERY CALCIFICATION: None visualized on this study. CHEST WALL/AXILLA: Sebaceous cyst abutting the sternum in the subcutaneous fat (series 3, image 33). There is no adenopathy or mass. UPPER ABDOMEN: Imaged upper abdominal contents appear normal within the confines of low dose noncontrast technique. OSSEOUS STRUCTURES: No suspicious lytic or blastic bone lesions. Mild degenerative changes of the spine. Incompletely imaged fusion hardware in C6 and C7. CT/CT lung screening IMPRESSION: 1. A few stable scattered pulmonary nodules measuring up to 3 mm. There is no new or enlarging pulmonary nodule. 2. Very mild centrilobular emphysema. Stable post inflammatory cyst with surrounding groundglass attenuation in the right upper lobe. This is benign. 3. Ancillary findings as discussed in the body of the report. ASSESSMENT: 1. Lung-RADS Category 2: Benign appearance or behavior of nodules. 2. Lung-RADS Category S: None. RECOMMENDATION: Continued routine annual low-dose CT lung screening in 1 year is recommended. An order for CT CHEST LOW DOSE CANCER SCREENING ([id number]) can be placed. Electronically signed by: Emeka Correa MD 06/10/2025 04:16 PM MIKAELA COLE
--- OUTSIDE RECORDS SUMMARY | 2025-06-10 20:17 | XMS_ITS | Encounter Summary ---
Author Organization [employer] Address [address] [place] [address] [address] [place] [address] Care Team Providers Care Laboratory Cureman Name Role Phone Unavailable Primary Care Provider Unavailabl e Reason for Visit * Reason Comments Med Refill Encounter Details Date Type Department Care Team (Late st Contact Info) Description 05/18/2025 Refill [facility] OPTOM[facility] [address] [place] [address] Saniya Veliz, OD [address] [place] [address] Social History Tobacco Use Types Packs/Day Years [...] Care Team (Late st Contact Info) Description 10/27/2025 2:00 PM EDT Office Visit [facility] [address] [place], [place] [id number] Saniya Veliz, OD [address] [place] [address] documented as of this encounter Goals Goal Patient Goal Type Associated Problems Recent Progress Patient-Stated? Author Help patients manage their type 2 diabetes Care Plan Help patients manage their type 2 diabetes No Saniya Veliz, OD Weekly blood pressure task Care Plan Weekly blood pressure task No Sharad Velizn, OD Help patients manage their type 2 diabetes Care Plan Help patients manage their type 2 diabetes No Jose AlfredoSharadn, OD Patient has chronic kidney disease Care Plan Patient has chronic kidney disease No Sharad Velizn, OD Weekly blood pressure task Care Plan Weekly blood pressure task No Sharad Velizn, OD Patient has chronic kidney disease Care Plan Patient has chronic kidney disease No Saniya Veliz, OD documented as of this encounter Visit Diagnoses Not on filedocumented in this encounter Additional Health Concerns Active Problems Noted Date Diagnosed Date Help patients manage their type 2 diabetes 05/16 Weekly blood pressure task 05/16/2025 Help patients manage their type 2 diabetes 05/16 Patient has chronic kidney disease 05/16/2025 Weekly blood pressure task 05/16/2025 Patient has chronic kidney disease 05/16/2025 documented as of this encounter
--- OUTSIDE RECORDS SUMMARY | 2025-06-10 20:17 | XMS_ITS | Encounter Summary ---
Author Organization [facility] Address [address] [place] [address] Encounters * CPT with Medical instED at [facility] on 2025-05-12 { reasonForRequest : headache/congestion , [...] the last 2???3 days. Patient has tried ahyw-fwt-moglqyo DayQuil/NyQuil generics with some relief. Patient also has history of migraines and was recently prescribed sumatriptan. Patient presents in no obvious distress. Vital signs taken as listed. Lungs cleared bilaterally. Patient swabbed for flu and Covid and found to be negative. Patient did have palpable sinus tenderness. Consulted with [facility] who advised patient to try sumatriptan and regular use of Flonase as he has notbeen using recently. Pt advised to call back if no improvement 7 days after symptom onset. IV_(FLUIDS_AND/OR_MEDICATION), MEDICATION_IM, EKG, POC_BLOODWORK, POC_FLU_STREP, COVID_TEST Written by Medical instED on 2025-05-12
--- OUTSIDE RECORDS SUMMARY | 2025-06-10 20:17 | XMS_ITS | Data Portability ---
Author Organization [employer] [facility], [facility] Address [address] [place] [address] Care Team Providers Care Adult Education Manager Name Role Phone HIM CCA OTHER NATASHA CORBETT Primary Care Provider [phone] Assessment Encounter Date Assessment Date Assessment LastModified [...] Assessment and Plan as documented by the Garbage Truck Helper. Patient given the opportunity to ask questions. Our service contacted for an assessment of: diarrhea As per above, patient with TNTC foul-smelling, oily BMs with diarrhea consistency after a hernia surgery with likely prabha=op abx and FB placement Per filament maker on the scene, VSS. Please read the filament maker note for their exam findings. Impression: Likely C. diff - hospital acquired after recent surgery. Unable to obtain a sample for PCR/toxin, unable to obtain a WBC or obtain a KUB -> for those reasons we elected to have the patient present to ED for care but necessarily admission depending on w/u Plan: expect call to [facility] ED Allergies: Reviewed [email or web address] Not available 02/08/2025 20:56:54 Plan of Treatment Reminders Order Date Submit Date Provider Last Modified By Organization Details Last Modified Time Details Appointments None recorded. Lab rapid flu (A+B) 2024 [facility], [address] [place] [address], [id number] 20:38:36 rapid SARS CoV 2 Ag, QL IA, respiratory specimen 2024 [facility], [address] [place] [address], [id number] 20:38:15 rapid strep group A, throat 2024 025 [facility], [address] [place] [address], [phone] 21:55:34 Referral None recorded. Procedures None recorded. Surgeries None recorded. Imaging None recorded. Medication Orders oseltamivir 75 mg capsule 2024 [facility] #[id number], [address] [place], [place], [phone], 21:08:58 Tamiflu 75 mg capsule 2024 [facility] #76609, [address], [place], [phone], 21:09:03 Patient TargetsNo targets recorded. Patient InstructionsNo instructions recorded. Reason for Referral None Reported. Results Created Date Observation Date Name Description Value Unit Range Abnormal Flag Note LastModifiedBy Organization Detail LastModifiedTime 09/16/1909/15/2024 rapid strep group A, throa t Strep negati ve Not Available [facility] ed [address] [place] [address], [id number] 09/15/2024 21:14:27 Result Notes None recorded. Medical Equipment None Reported. Allergies Allergen ID Allergen Name Allergen Category Reaction Reaction Severity Criticality Documentation Date Start Date Code Code System Note Provider Name and Address Organization Details Recorded Time 05372 Product containin g penicilli n (product) medicatio n Not available Not available Not available 09/15/2024 95648 8001 SNOMED Not Available [facility] - production 20:03:25 penicilli n G Not available rash Not available high 05/12/20252017 7980 RxNorm Other react ion(s ): Rash Not Available alexandria - External Data Service - prod 19:20:49 [...] Recorded Heart rate Respiratory rate Oxygen saturation Body temperature Systolic And Diastolic Provider Name and Address Organization Details Last Updated DateTime 5 77 /min 18 /min 96 % 98.1 [degF] 121/65 mm[Hg] Not Available [facility] - production 5 21:01:21 Date Recorded Body temperature Oxygen saturation Respiratory rate Heart rate Systolic And Diastolic Provider Name and Address Organization Details Last Updated DateTime 5 98.3 [degF] 99 % 16 /min 89 /min 102/68 mm[Hg] Not Available [facility] - production 5 20:01:39 Date Recorded Heart rate Oxygen saturation Body weight Respiratory rate Body height Systolic And Diastolic Provider Name and Address Organization Details Last Updated DateTime 5 75 /min 97 % 90026.4 4 g 16 /min 175.26 cm 117/77 mm[Hg] Not Available [facility] - production 17:50:22 Social History None recorded. Functional Status None recorded. Mental Status None recorded. Family History Nothing Reported. Medical History No medical history recorded. Past Encounters Encounter ID Performer Location Encounter Start Date Encounter Closed Date Diagnosis/Indication Diagnosis SNOMED-CT Code Diagnosis ICD10 Code Diagnosis IMO Codes Diagnosis Note [id number] Rhett Menendez MD [address] [address] 09/15/2024 21:01:19 09/20/2024 22:21:01 Influenza caused by Influenza A virus [id number] J09.X2 [id number] Adore Kaufman MD [facility] [address] [address] 02/08/2025 19:54:36 02/09/2025 10:10:58 Acute diarrhea [id number] R19.7 [id number] SURINDER MCLEAN MD [facility] [address] [address] 05/12/2025 17:44:22 05/13/2025 12:00:28 Sinus headache 7928505 R51.9 [id number] Evaluation in the field was performed by my filament maker colleague, as noted above, I provided real-time [...] ID Guarantor Name 05/12/2025 1 [facility] - DOS ON OR AFTER 2022 - DUAL ELIGIBLE - RETIREMENT OPTIONS AND ONE CARE (MEDICARE REPLACEMENT/ADV ANTAGE - HMO) Kalileanne Hinesa Nicholas [id number] Kali Alexander Nicholas Notes Date Note Type Note Provider [...] Colitis), Appendectomy PMH Reviewed at 09/15/2024 - 20:03 Allergies Reviewed at 09/15/2024 - 20:03 Comments: PMH- colitis Referral taken via Field Service Technician. Patient calling in to place a referral, [...] He also reports being unable to sleep. Garbage Truck Helper Organization Information for Roberta Wilson Business Legal Name: [facility]. Address: [address] [place] [address], Insurance Office Manager: Max CROCKETT No.: [id number] Garbage Truck Helper POC Test Results from Roberta Wilson Rapid strep test (20:56:47) Strep: - ..................... ..................... ..................... ..................... ..................... ..................... ............... Garbage Truck Helper Note From Roberta Wilson: Sent to a [...] warm, dry; Rapid strep test: neg; [facility] consulted and orders Tamiflu 75mg PO. [facility] sends script to pt's pharmacy for Tamiflu to start tomorrow. Tamiflu 75mg PO administered without incident. Red flags discussed. Pt has no further questions. [facility] Lab Orders: rapid strep group A, throat: Performed ..................... ..................... ..................... ..................... ..................... ..................... ............... [facility] Consulted: Rhett Menendez ..................... ..................... ..................... ..................... ..................... ..................... ............... Disposition: Fulfilled Rhett Menendez MD [address] [facility],[address], [place], [address], [employer] 09/20/2024 21:55:36 02/08/2025 text/html CRC Nurse Triage [...] ..................... ..................... ..................... ..................... ..................... ..................... ............... Garbage Truck Helper Note From Moe Kat: Dispatched to the [...] from prior experience. Diarrhea Pt was assessed. [facility] consulted. ED advised for further work up and possible treatment. Pt agreeable. 911 called for the Pt, I remained on scene until EMS arrived. Pt transfer of care and report given to EMS crew. Pt transported to [facility]. ALL times are approx. ..................... ..................... ..................... ..................... ..................... ..................... ............... [facility] Consulted: Adore Kaufman ..................... ..................... ..................... ..................... ..................... ..................... ............... Disposition: Fulfilled Adore Kaufman MD [address] [facility],[address], [place], [address], [facility] 02/08/2025 20:57:02 05/12/2025 text/html ROS as noted [...] hes out of his migraine medicaiton. requesting rusted visit. I provided information on the mobile health provider response time and advised the patient and/or caregiver to monitor reported signs and symptoms. I discussed the warning signs of when to seek emergency care. Garbage Truck Helper Organization Information for Edison Bearden Business Legal Name: [facility] Address: [address] [place] [address], [place] [address], Insurance Office Manager: Michael Davis MD CLIA No.: [id number] Garbage Truck Helper POC Test Results from Edison Bearden Rapid COVID antigen (17:58:27) COVID: - Rapid influenza antigen (17:58:28) Flu: - ..................... ..................... ..................... ..................... ..................... ..................... ............... Garbage Truck Helper Note From Edison Bearden: InstED visit for male patient with complaint of sinus pain and pressure. Patient reports symptoms have been happening for the last 2 3 days. Patient has tried mmqt-bml-mqgfzas DayQuil/NyQuil generics with some relief. Patient also has history of migraines and was recently prescribed sumatriptan. Patient presents in no obvious distress. Vital signs taken as listed. Lungs cleared bilaterally. Patient swabbed for flu and Covid and found to be negative. Patient did have palpable sinus tenderness. Consulted with [facility] who advised patient to try sumatriptan and regular use of Flonase as he has not been using recently. Pt advised to call back if no improvement 7 days after symptom onset. [facility] Lab Orders: rapid flu (A+B): Performed rapid SARS CoV 2 Ag, QL IA, respiratory specimen: Performed ..................... ..................... ..................... ..................... ..................... ..................... ............... [facility] Consulted: Surinder Mclean ..................... ..................... ..................... ..................... ..................... ..................... ............... Disposition: Radha MCLEAN MD [address] [facility],[address], [place], [address], [place] - STEPHANIE BERG 05/12/2025 19:59:28
--- OUTSIDE RECORDS SUMMARY | 2025-06-10 20:17 | XMS_ITS | Patient Health Record ---
Author Organization [facility] Address [address] [facility] [place] Lange [address] Care Team Providers Care Physiotherapy Assistant Name Role Phone Shelli Moore MD Primary Care Provider Unavail able Juany Munson Unavailable [phone] Allergies Allergen (clinical drug ingredient) Drug/Non Drug Allergy documented on EMR Reaction Allergy Type Onset Date Status Substance with penicillin structure and antibacterial mechanism of action (substance) Penicillins skin erruptions Drug Allergy Active Results Component Value Reference Range Notes HEMOGLOBIN A1C (GLYCOHEMOGLO BIN) Reviewed date:04/12/2025 09:59:07 [...] Active Proctosol HC 2.5 % 1 application Lining Printer ally Twice a day Active Mesalamine 1.2 [...] Problem Acquired hammer toe of right foot (3768255731502065 ) Other hammer toe(s) (acquired), right foot (M20.41) Active confirmed Problem Acquired hammer toe of left foot (8914179682454513 ) Other hammer toe(s) (acquired), left foot (M20.42) Active confirmed Problem Plantar wart of left foot (8687656223446433 2) Plantar wart (B07.0) Active confirmed Problem Polyneuropathy due to diabetes mellitus (00728073) Type 2 diabetes mellitus with polyneuropathy (E11.42) Active confirmed Vital Signs Blood pressure diastolic 92 mm Hg 04/12/2025 Height 5ft 9in in 04/12/2025 Blood pressure systolic 117 mm Hg 04/12/2025 Weight 200 lbs 04/12/2025 BMI 29.53 kg/m2 04/12/2025 Encounters Encounter Location Date Provider Diagnosis [address] [address] 06/15/2024 Juany Perica Tinea pedis of both feet B35.3 ; Tinea unguium B35.1 ; Type 2 diabetes mellitus with polyneuropathy E11.42 ; Plantar wart B07.0 and Pain in left foot M79.[address] [address] 09/01/2024 Juany Perica Tinea pedis of both feet B35.3 ; Other hammer toe(s) (acquired), right foot M20.41 ; Tinea unguium B35.1 ; Type 2 diabetes mellitus with polyneuropathy E11.42 ; Plantar wart B07.0 ; Pain in left foot M79.672 and Other hammer toe(s) (acquired), left foot M20.[address] [address] 01/21/2025 Juany Perica Pain in left foot M79.672 ; Type 2 diabetes mellitus with polyneuropathy E11.42 ; Tinea unguium B35.1 and Plantar wart B07.[address] [address] 04/12/2025 Juany Perica Type 2 diabetes mellitus with polyneuropathy E11.42 ; Tinea pedis of both feet B35.3 ; Pain in left foot M79.672 ; Tinea unguium B35.1 and Plantar wart B07.0 [facility] [address] [address] 11/17/2024 Juany Munson [facility] [place] [address] [place] [address] 05/09/2025 Juany Jeimy Tinea pedis of both [...] Details Provider Name:Juany luna, 07/19/2025 01:00:00 PM, [address] [place] [address], [phone], Insurance Providers Payer Name Payer Address Payer Phone Subscriber Number Group Number Insured Name Patient Relationship to Insured Coverage Start Date Coverage End Date [facility] [employer] Claims [address] [place], [place] [address] [place] [address] [id number] Kali Munoz Self - patient is the insured Medical (General) History Medical History History ICD Code Anxiety Back,Hip,and Knee pain covid-19 Depression Diabetic Headaches/Migraines Hepatitis Hiatal hernia Lung disease Psychiatric disorder Reflux ( GERD) sinusitis COPD Colitis Chicken pox Cholesterol Surgical History Surgery Date(Month/Year) cervical (spine?) surgery 2017 hernia 7343-3450 peritonitis 2019 hernia 10/22
--- OUTSIDE RECORDS SUMMARY | 2025-06-10 20:17 | XMS_ITS | Encounter Summary ---
Author Organization [employer] Address [address] [place] [address] [address] [place] [address] Care Team Providers Care Leveler Name Role Phone Unavailable Primary Care Provider Unavailabl e Reason for Visit * Reason Comments Med Refill Encounter Details Date Type Department Care Team (Late st Contact Info) Description 06/03/2025 Refill [facility] OPTOMETRY [address] [place] [address] Saniya Veliz, OD [address] [place] [address] Social History Tobacco Use Types Packs/Day Years [...] 2:00 PM EDT Office Visit [facility] OPTOMETRY [address] [place], [place] [phone] Saniya Veliz, OD [address] [place] [address] documented as of this encounter Goals Goal [...]
--- OUTSIDE RECORDS SUMMARY | 2025-06-10 20:17 | XMS_ITS | Encounter Summary ---
Author Organization [employer] Address [address] [place] [address] [address] [place] [address] Care Team Providers Care County Administrator Name Role Phone Unavailable Primary Care Provider Unavailabl e Reason for Visit * Reason Comments Med Refill Encounter Details Date Type Department Care Team (Late st Contact Info) Description 06/01/2025 Refill [facility] OPTOMETRY [address] [place] [address] Saniya Veliz, OD [address] [place] [address] Social History Tobacco Use Types Packs/Day Years [...] Description 10/27/2025 2:00 PM EDT Office Visit [facility] OPTOMETRY [address] [place], [place] [phone] Saniya Veliz, OD [address] [place] [address] documented as of this encounter Goals Goal [...]
--- OUTSIDE RECORDS SUMMARY | 2025-06-10 20:17 | XMS_ITS | Encounter Summary ---
Author Organization [employer] Address [address] [facility] 7 [place] [address] Care Team Providers Care Bark Grinder Name Role Phone Unavailable Primary Care Provider Unavailabl e Encounter Details Date Type Department Care Team (Late Contact Info) Description 10/08/2022 Abstract [facility] ADULT DENTAL [address] [place] [address] Raymundo, Erum [address] [place] [address] Social History Tobacco Use Types Packs/Day Years [...] Department Care Team (Late Contact Info) Description 10/27/2025 2:00 PM EDT Office Visit [facility] OPTOMETRY [address] [place] [address] Saniya Veliz, OD [address] [place] [address] documented as of this encounter Visit Diagnoses Not on filedocumented in this encounter
--- OUTSIDE RECORDS SUMMARY | 2025-06-10 20:18 | XMS_ITS | Continuity of Care Document ---
Author Name [facility] Address [address] [place] [address] Organization Unknown Address [address] [place] [address] Medications No known medications Problems No known problems
--- OUTSIDE RECORDS SUMMARY | 2025-06-10 20:18 | XMS_ITS | Encounter Summary ---
Author Organization [employer] Address [address] [place] [address] [address] [place] [address] Care Team Providers Care Network Relations Consultant Name Role Phone Unavailable Primary Care Provider Unavailabl e Reason for Visit * Reason Comments Med Refill Encounter Details Date Type Department Care Team (Late st Contact Info) Description 06/02/[address] [facility] OPTOMETRY [address] [place] [address] Saniya Veliz, OD [address] [place] [address] Social History Tobacco Use Types Packs/Day Years [...] Description 10/27/2025 2:00 PM EDT Office Visit [facility] OPTOMETRY [address] [place], [place] [phone] Saniya Veliz, OD [address] [place] [address] documented as of this encounter Goals Goal [...]
--- OUTSIDE RECORDS SUMMARY | 2025-06-10 20:18 | XMS_ITS | Clinical Summary ---
Author Organization [employer] Address [address] [facility] 7 [place] [address] Care Team Providers Care Operator Engineer Name Role Phone Unavailable Primary Care Provider Unavailabl e Allergies Active Allergy Reactions Criticality Noted Date Comments Penicillin G Rash High 11/04/2017 Other reaction(s): Rash Penicillins Rash High 11/04/2017 Other Reaction(s): skin erruptions Other reaction(s): Rash Medications albuterol (ProAir HFA) 108 (90 Base) MCG/ACT inhaler Inhale 4 times a day. 8 Active mesalamine (Lialda) 1.2 g EC tablet Take 2.4 g by mouth in the morning. 3 Active escitalopram (Lexapro) 10 MG tablet Take 10 mg by mouth in the morning. 2 Active propranolol LA (Inderal LA) 80 MG 24 hr capsule Take 80 mg by mouth 2 times daily. 3 Active Gentle Laxative 5 MG EC tablet Take 10 mg by mouth at bedtime. 3 Active dexlansoprazol e (Dexilant) [address] capsule Take 1 [...] 1 PUFF BY MOUTH DAILY 3 Active Lancets (OneTouch Delica Plus [id number]) misc USE ONCE DAILY 3 Active OneTouch Ultra test strip TEST ONCE DAILY 3 Active dicyclomine (Bentyl) 20 MG tablet 3 Active Blood Glucose Monitoring Suppl (ONE TOUCH ULTRA 2) w/Device kit USE DIRECTED 3 Active atorvastatin (Lipitor) 20 MG tablet Take 20 mg by mouth at bedtime. 3 Active SUMAtriptan (Imitrex) 50 MG tablet 4 [...] per day. Take with food. 4 Active docusate sodium (Colace) 100 MG capsule Take 1 capsule by mouth 2 times daily. 5 Active Trulicity 1.5 MG/0.5ML solution auto-injector ADMINISTER 1.5 MG UNDER THE SKIN EVERY WEEK Active fluticasone (Flonase) 50 MCG/ACT nasal spray SHAKE LIQUID AND USE 2 SPRAYS IN EACH NOSTRIL DAILY FOR ALLERGIC RHINITIS Active oxyCODONE-acet aminophen (Percocet) 5-325 MG tablet Take 1 tablet by mouth every 6 (six) hours if needed for pain. 5 Active buPROPion XL (Wellbutrin XL) 150 MG 24 hr tablet Take 1 tablet by mouth Once per day. 5 Active tadalafil (Cialis) 5 MG tablet Take 1 tablet by mouth Once per day. 5 Active dextran 70-hypromellos e (artificial tears) 0.1-0.3 % ophthalmic solutionIndica tions:Dry eyes Administer 1 drop into both eyes 4 times daily. 30 mL 11 5 06/03/20 Active carboxymethylc ellulose (Refresh Plus) 0.5 % ophthalmic solution use as directed as needed for dry eyes 8 05/16/20 Discontinu ed(Therapy completed) clotrimazole (Lotrimin AF) 1 % cream Apply topically every 12 (twelve) hours. 8 05/16/20 Discontinu ed(Therapy completed) Fluticasone Furoate-Vilant martine (Breo Ellipta) 100-25 MCG/ACT aerosol powder Inhale 1 puff at bed time. 8 05/16/20 Discontinu ed(Therapy completed) Multiple Vitamins-Hamblen als (Centrum Silver Adult 50+) tablet Take 1 tablet by mouth at bed time. 9 05/16/20 Discontinu ed(Therapy completed) nabumetone (Relafen) 500 MG tablet Take 1 tablet by mouth in the morning and 1 tablet in the evening. 8 05/16/20 Discontinu ed(Therapy completed) tolterodine LA (Detrol LA) 4 MG 24 hr capsule Take 4 mg by mouth in the morning. 3 05/16/20 Discontinu ed(Therapy completed) zolpidem (Ambien) 10 MG tablet Take 10 mg by mouth if needed at bedtime. 3 05/16/20 Discontinu ed(Therapy completed) amitriptyline (Elavil) 25 MG tablet Take 25 mg by mouth at bedtime. 2 05/16/20 Discontinu ed(Therapy completed) meloxicam (Mobic) 7.5 MG tablet TAKE 1 TABLET BY MOUTH EVERY DAY. DO NOT TAKE WITH OTHER NSAIDS 3 05/16/20 Discontinu ed(Therapy completed) cycloSPORINE (Restasis) 0.05 % ophthalmic emulsion INSTILL 1 DROP IN BOTH EYES TWICE DAILY 3 05/16/20 Discontinu ed(Therapy completed) cyclobenzaprin e (Flexeril) 10 MG tablet Take 10 mg by mouth if needed in the morning, at noon, and at bedtime. 3 05/16/20 Discontinu ed(Therapy completed) chlorhexidine (Peridex) 0.12 % solution Swish 15 mL morning and night for 1 minute. Spit, do not swallow. Do not eat or drink for 30 minutes following use. 473 mL 4 05/16/20 Discontinu ed(Therapy completed) Jardiance 10 MG Take 10 mg by mouth Once per day. 4 05/16/20 Discontinu ed(Therapy completed) ciclopirox (Loprox) 0.77 % cream APPLY TOPICALLY TO THE AFFECTED AREA TWICE DAILY 05/16/20 Discontinu ed(Therapy completed) doxycycline (Vibra-Tabs) 100 MG tablet TAKE 1 TABLET BY MOUTH TWICE DAILY FOR 10 DAYS FOR BRONCHITIS 05/16/20 Discontinu ed(Therapy completed) polyvinyl alcohol (Liquifilm Tears) 1.4 % ophthalmic solution PLACE 1 DROP IN EACH EYE FOUR TIMES DAILY 05/16/20 Discontinu ed(Therapy completed) metFORMIN XR (Glucophage-XR ) 500 MG 24 hr tablet Take 1 tablet by mouth Once per day. 5 05/16/20 Discontinu ed(Therapy completed) Active Problems Problem Noted Date Diagnosed Date Open fracture of tooth 02/13/2024 Fractured dental hindu with loss of materi al 02/02/2024 Diabetes [...] disease overlap syndrome (CMS/HCC) 11/04/2017 Benzodiazepine dependence ([facility]) 11/04/2017 Chronic recurrent sinusitis 11/04/2017 Colitis 11/04/2017 Disorder of tendon of shoulder region 11/04/2017 Dry eyes 11/04/2017 Gastroesophageal reflux disease without esophagi tis 11/04/2017 Lumbar back pain with radicu lopathy affecting right lower extremity 11/04/2017 Mood disorder 11/04/2017 Noise-induced hearing loss 11/04/2017 Obesity 11/04/2017 Opioid dependence in remission ([facility]) 018 Encounters Date Type Department Care Team Description 06/03/2025 Refill [facility] [address] [place] [address] Jose Alfredo Saniya, OD 06/03/2025 Orders Only [facility] [address] [place] [address] Jose Alfredo, Saniya, OD Dry eyes (Primary Dx) 06/02/2025 Refill [facility] [address] [place] [address] Jose Alfredo Saniya, OD 06/01/2025 Refill [facility] [address] [place] [address] Jose Alfredo, Saniya, OD 05/18/2025 Refill [facility] [address] [place] [address] Jose Alfredo Saniya, OD 04/29/2025 2:00 PM EDT Office Visit [facility] [address] [place] [address] Jose Alfredo, Saniya, OD Type 2 diabetes mellitus without ophthalmic manifestations (HCC) (Primary Dx); Glaucoma suspect of both eyes; Early cataracts, bilateral; Dry eyes; Presbyopia of both eyes 04/29/2025 Travel from Last 3 Months Immunizations Immunization Administration Dates Next Due Influenza [...] Description 10/27/2025 2:00 PM EDT Office Visit [facility] OPTOMETRY [address] [place] [address] Jose AlfredoSaniya mitchell, OD [address] [place] [address] Health Maintenance Due Date Last Done Comments [...] of 2 - Risk 2-dose series) 10/29/1979 RSV Patients and Patients Aged 60 years or older (1 - Risk 50-74 years 1-dose series) 2010 Hepatitis B Vaccines (1 of 3 - Risk 3-dose series) 2020 Dental Oral Exam 07/10/2024 01/07/2024, 08/26/2022 Dental Prophylaxis 07/10/2024 01/07/2024, 09/20/2022 Dental X-Ray: Bitewings 01/07/2025 01/07/2024, 08/26 COVID-19 Vaccine ( season) 2025 08/22/2022, 06/21/2021, 10/04/2020 Influenza Vaccine (#1) 2025 , 04/22/2022, 04/20/2021, Additional history exists Dental X-Ray: Full Mouth 08/27/2025 08/26/2022 Tobacco Screening 05/16/2026 05/16/2025 Eye Exam 04/29/2027 04/29/2025, 04/01, 04/29/2025, Additional history exists DTaP/Tdap/Td Vaccines (3 - [...] on patient's age to complete this topic Goals Goal Patient Goal Type Associated Problems Recent Progress Patient-Stated? Author Help patients manage their type 2 diabetes Care Plan Help patients manage their type 2 diabetes No Jose Alfredo, Saniya, OD Weekly blood pressure task Care Plan Weekly blood pressure task No Jose Alfredo, Saniya, OD Help patients manage their type 2 diabetes Care Plan Help patients manage their type 2 diabetes No Jose Alfredo, Saniya, OD Patient has chronic kidney disease Care Plan Patient has chronic kidney disease No Jose Alfredo, Saniya, OD Weekly blood pressure task Care Plan Weekly blood pressure task No Jose Alfredo, Saniya, OD Patient has chronic kidney disease Care Plan Patient has chronic kidney disease No Jose Alfredo, Saniya, OD Procedures Procedure Name Priority Date/Time Associated Diagnosis Comments OCT, OPTIC NERVE - OU - BOTH EYES Routine 04/29/2025 2:00 PM EDT Glaucoma suspect of both eyes Full PROPHYLAXIS - ADULT Routine 01/07/2024 2:00 PM EDT Dental calculus BITEWINGS - 4 RADIOGRAPHIC IMAGES Routine 01/07/2024 2:00 PM EDT Dental calculus PERIODIC ORAL EVALUATION - ESTABLISHED PATIENT Routine 01/07/2024 2:00 PM EDT INTRAORAL - COMPLETE SERIES OF RADIOGRAPHIC IMAGES Routine 08/26/2022 8:00 AM EST from Last 3 Months or Most Recently Relevant to Health Maintenance Results * OCT, Optic Nerve - OU - Both Eyes (04/29/2025 2:00 PM EDT) Narrative Sharad Velizn, OD - 05/16/2025 2:33 PM EST Images from the original result were not included. OCT OPTIC NERVE INTERPRETATION Optical Coherence Tomography Interpretation Report Test Details: Measurements: OD OS C/D Horizontal 0.81 0.82 C/D Vertical 0.79 0.78 Disc area 1.89 mm 2 2.33 mm 2 RNFL Average 81 microns 84 microns Test findings: OD: Borderline RNFL thinning in inferior quadrant, normal RNFL thickness in all other quadrants OS: Borderline RNFL thinning in inferior and nasal quadrants, normal RNFL thickness in superior and temporal quadrants Impression and Plan: Right: RNFL thickness stable to 03/2024 findings Left: RNFL thickness stable to 03/2024 findings The patient is a normal tension glaucoma suspect secondary to large optic nerve cupping in both eyes. Will have him return in 6 months for an updated visual field exam. us Saniya Veliz OD OPHTH TOMOGRAPHY Final Result from Last 3 Months Additional Health Concerns Active Problems Noted Date Diagnosed Date Help patients manage their type 2 diabetes 05/16 Weekly blood pressure task 05/16/2025 Help patients manage their type 2 diabetes 05/16 Patient has chronic kidney disease 05/16/2025 Weekly blood pressure task 05/16/2025 Patient has chronic kidney disease 05/16/2025 Insurance [facility] < 65 [facility]
--- OUTSIDE RECORDS SUMMARY | 2025-06-10 20:18 | XMS_ITS | Continuity of Care Document ---
Author Organization [facility] Address [address] [place] [phone] Care Team Providers Care Zigzag Elastic Attacher Name Role Phone HIM CCA OTHER NATASHA CORBETT Primary Care Provider Assessment No assessment recorded. Plan of Treatment Reminders Order Date Submit Date Provider Last Modified By Organization Details Last Modified Time Details Appointments None recorded. Lab rapid flu (A+B) 2024 025 [facility], [address] [place] [address], [id number] 20:38:36 rapid SARS CoV 2 Ag, QL IA, respiratory specimen 2024 025 [facility], [address] [place] [address], [id number] 20:38:15 Referral None recorded. Procedures None recorded. [...] Name and Address Organization Details Recorded Time 62656 Product containin g penicilli n (product) medicatio n Not available Not available Not available 09/15/2024 61682 8001 SNOMED Not Available [facility] - production 20:03:25 06052 penicilli n G Not available rash Not available high 05/12/20252017 7980 RxNorm Other react ion(s ): Rash Not Available formerly [facility] External Data Service - prod 19:20:49 Medications [...] Vitals Date Recorded Heart rate Oxygen saturation Body weight Respiratory rate Body height Systolic And Diastolic Provider Name and Address Organization Details Last Updated DateTime 5 75 /min 97 % 20717.4 4 g 16 /min 175.26 cm 117/77 mm[Hg] Not Available [facility] - production 5 17:50:22 Social History None recorded. Functional Status None recorded. Mental Status None recorded. Family History Nothing Reported. Medical History No medical history recorded. Past Encounters Encounter ID Performer Location Encounter Start Date Encounter Closed Date Diagnosis/Indication Diagnosis SNOMED-CT Code Diagnosis ICD10 Code Diagnosis IMO Codes Diagnosis Note [id number] SURINDER MCLEAN MD [facility] ED Medical [facility] [address] [place] [address] 05/12/2025 17:44:22 05/13/2025 12:00:28 Sinus headache 4250462 R51.9 [id number] Evaluation in the field was performed by my skin specialist colleague, as noted above, I provided real-time [...] Smith Member ID Guarantor Name 05/12/2025 1 [facility] - DOS ON OR AFTER 2022 - DUAL ELIGIBLE - [facility] OPTIONS AND ONE CARE (MEDICARE REPLACEMENT/ADV ANTAGE - HMO) Kali Nicholas [id number] Kali Nicholas Notes Date Note Type Note [...] signs of when to seek emergency care. Label Tacker Organization Information for [facility] Business Legal Name: [facility] Address: [address] [place] [address], [place] [address], Switch Repairer: Michael Davis MD [place] No.: [id number] Label Tacker POC Test Results from [facility] Rapid COVID antigen (17:58:27) COVID: - Rapid influenza antigen (17:58:28) Flu: - .................... .................... .................... .................... .................... .................... .................... . Label Tacker Note From Edison Bearden: [facility] visit for male patient with complaint of sinus pain and pressure. Patient reports symptoms have been happening for the last 2 3 days. Patient has tried [id number] DayQuil/NyQuil generics with some relief. Patient also has history of migraines and was recently prescribed sumatriptan. Patient presents in no obvious distress. Vital signs taken as listed. Lungs cleared bilaterally. Patient swabbed for flu and Covid and found to be negative. Patient did have palpable sinus tenderness. Consulted with [facility] who advised patient to try sumatriptan and regular use of Flonase as he has not been using recently. Pt advised to call back if no improvement 7 days after symptom onset. [facility] Lab Orders: rapid flu (A+B): Performed rapid SARS CoV 2 Ag, QL IA, respiratory specimen: Performed .................... .................... .................... .................... .................... .................... .................... . [facility] Consulted: Surinder Mclean .................... .................... .................... .................... .................... .................... .................... . Disposition: Radha MCLEAN MD [address] [facility],[address], [place], [address], [employer] 05/12/2025 19:59:28
== END 2025-06-10 15:27 | disposition home or self-care (01) ==
LOC: HO.CT 15:26
PROVIDERS: PCP Internal Medicine; Visit Provider Physician Assistant Medical
DX: Z87.891 Personal history of nicotine dependence (principal)
CPT/HCPCS: 71271

== ENCOUNTER → 2025-06-10 15:30 | Outpatient (BNV) | payer OTHER, SELFPAY | PROVIDERS: PCP Internal Medicine; Visit Provider Radiology Diagnostic Radiology | DX: Z87.891 Personal history of nicotine dependence (principal) | CPT/HCPCS: 71271 ==

== ENCOUNTER 2025-06-21 11:12 | Outpatient (AMB) | payer OTHER, SELFPAY ==
--- OUTSIDE RECORDS SUMMARY | 2024-01-14 10:30 | XMS_ITS ---
Author Organization [facility] Address [address] [facility] [place] [address] Care Team Providers Care Cutter And Presser Name Role Phone Shelli Moore MD Primary Care Provider Unavail able Juany Munson Unavailable [phone] Medications Medication SIG (Take, Route, Frequency, Duration) [...] Active Proctosol HC 2.5 % 1 application Cement Fittings Maker ally Twice a day Active oxyBUTYnin Active [...] Active Encounters Encounter Location Date Provider Diagnosis [facility] [place] [address] [place] [address] 01/14/2024 Juany Munson Plan Of Treatment Next Appt Details Provider Name:Juany luna, 07/19/2025 01:00:00 PM, [address] [place], [address], Progress Notes * Viridiana MUNOZOB: (64 yo M)Acc No.[id number]:01/14/2024 Progress Note Patient: Kali GORDILLO Provider: Paula Munson DPM :1960 A ge:63 Y S ex:Male Date:01/14/2024 Address: [address] [facility] Pcp:Shelli Moore MD Subjective: * Chief Complaints: [...] 0 01/14/2024 Generated for Tiesha rodriguez/Pan/Kirk on: 08/22/2024 12:35 PM EST History and Physical Notes * HPI (History of Present Illness) Category Sub-Category Detail Notes Category Not es At Risk footcare Pt States Last PCP Visit: Date:: 06/11/20 23
--- OUTSIDE RECORDS SUMMARY | 2024-04-06 04:30 | XMS_ITS ---
Author Organization [facility] Address [address] [place] [address] Care Team Providers Care Senior Software Developer Name Role Phone Shelli Moore MD Primary Care Provider Unavail able Juany Munson Unavailable [phone] REASON FOR VISIT seen 04/01/2024 Encounters Encounter Location Date Provider Diagnosis [address] [address] 04/06/2024 Juany Munson Plan Of Treatment Next Appt Details Provider Name:Juany luna, 07/19/2025 01:00:00 PM, [address] [place] [address], [phone], Progress Notes * Huber MUNOZArianaOB: (64 yo M)Acc No.[id number]:04/06/2024 Progress Note Patient: Kali GORDILLO Provider: Paula Munson DPM :1960 A ge:63 Y S ex:Male Date:04/06/2024 Address:[address] [place] Pcp:Shelli Moore MD Subjective: * Chief Complaints: [...] DPM Date: Generated for Tiesha Pryor/Kirk on: 08/22/2024 12:34 PM EST
--- OUTSIDE RECORDS SUMMARY | 2024-11-19 08:00 | XMS_ITS ---
Author Organization [facility] Address [address] [place] [address] Care Team Providers Care Railroad Brake Repairer Name Role Phone Teresa ELLIS, Shelli Primary Care Provider Unavail Juany Wong Unavailable [phone] Encounters Encounter Location Date Provider Diagnosis [address] [address] 11/19/2024 Juany Munson Plan Of Treatment Next Appt Details Provider Name:Juany luna, 07/19/2025 01:00:00 PM, [address] [place] [address], [phone], Progress Notes * Huber MUNOZArianaOB: (64 yo M)Acc No.[id number]:11/19/2024 Progress Note Patient: Kali GORDILLO Provider: Paula Munson DPM :1960 A ge:64 Y S ex:Male Date:11/19/2024 Address:[address] [place], [place] Pcp:Shelli Moore MD Subjective: * Chief Complaints: [...] 0 11/19/2024 Generated for Tiesha Pryor/Kirk on: 08/22/2024 12:35 PM EST
[2025-06-21 11:27] VITALS: BP 122/68; PULSE 75; O2SAT 97; BMI 29.2
--- NOTE | 2025-06-21 11:27 | A.OFFVIS_ITS ---
Vital Signs 06/21/25 11:27 Height 5 ft 9 in Weight 198 lb BMI 29.2 BP 122/68 Blood Pressure Location Lt brachial Position Sitting Pulse 75 Pulse Source Pulse Oximeter Pulse Oximetry (%) 97 Oxygen Delivery Method Room Air Intake Visit Reasons: copd Intake Note: pt is here for follow up and states his breathing is short at times. Core Stacker Required: No Steam Box Hand: Steam Box Hand offered & declined Allergies Penicillins (PENICILLINS) Allergy (Unknown, Verified 06/21/25 12:02) ANAPHYLAXIS Medication List - Last Reconciled 06/21/25 by Vianca Lyons MD [adjustable bed rail As directed] [adult diapers As directed] albuterol sulfate 2.5 mg inhalation Q6H PRN atorvastatin 20 mg PO BEDTIME 90 days [bath mat As directed] blood sugar diagnostic (FreeStyle Lite Strips) Use daily As directed to check blood glucose blood-glucose meter (FreeStyle Lite Meter kit) Use daily As directed to check blood sugars bupropion HCl XL 150 mg PO DAILY cetirizine 10 mg PO DAILY 30 days clonazepam (Klonopin) 0.5 mg orally 1 tablet in the morning and 2 tablets at bedtime clotrimazole-betamethasone 1-0.05 % 1 appl topical BID PRN dexlansoprazole 60 mg PO DAILY 90 days diclofenac sodium 3% 1 appl topical BID PRN 30 days dicyclomine 20 mg PO BID PRN docusate sodium (Colace) 100 mg PO BID PRN dulaglutide (Trulicity) 1.5 mg subcut BEEBE escitalopram oxalate (Lexapro) 10 mg PO DAILY [flip pillow As directed] fluticasone propionate 50 mcg/actuation 2 sprays intranasal DAILY PRN Incruse Ellipta 62.5 mcg/actuation (umeclidinium) 1 inh PO DAILY NS lancets (FreeStyle Lancets) use daily as directed to check blood glucose mesalamine 2.4 grams PO DAILY PRN montelukast 10 mg PO DAILY [id number] mcg (Centrum Silver Men) 1 tab PO DAILY oxybutynin chloride ER 15 mg PO DAILY 90 days polyvinyl alcohol 1.4% (Artificial Tears (polyvinyl alcohol)) 1 drp ophthalmic (eye) QID PRN propranolol ER 80 mg PO BID rivaroxaban (Xarelto) 20 mg PO DAILY [shower head As directed] sumatriptan succinate take 1 tab at onset of headache; if no relief may repeat 1 tab after at least 2 hrs; PO 30 days triamcinolone acetonide 0.1% 1 appl topical TID PRN underpads (Bed Underpads) Use 4 per day Ventolin HFA 90 mcg/actuation (albuterol sulfate) 2 puffs PO QID PRN NS [wipes As directed] HPI HPI copd: Details: Jorge Luis 64 years old gentleman, with chronic obstructive pulmonary disease and chronic allergic rhinitis comes after 6 months for his routine follow-up. Breathing carvajal he has been doing well and remained stable. He does have intermittent exacerbation of nasal congestion and postnasal drip which causes some cough, but mostly it is controlled. He has had no acute respiratory infection, he tries to protect himself by wearing a mask when the grandchildren come home. [facility], [facility] Medical History DAVID (obstructive sleep apnea) MCI (mild cognitive impairment) with memory loss Migraines Other enthesopathy of left foot and ankle Insertional tendinopathy of left Achilles tendon Arthritis of left ankle Left ankle pain History of small bowel obstruction Incisional hernia (10/12/24) Hepatitis Seasonal allergies Cough Hx of influenza Congestion of nasal sinus Type 2 diabetes mellitus OAB (overactive bladder) Hyperlipidemia LDL goal <70 Abdominal wall hernia Personal history of nicotine dependence History of COVID-19 Obesity (BMI 30-39.9) Insomnia COPD (chronic obstructive pulmonary disease) Allergic rhinitis Ulcerative colitis Surgical History Umbilical hernia Hx of tonsillectomy History of incisional hernia repair History of cervical spinal surgery History of colonoscopy History of appendectomy (~2008) History of esophagogastroduodenoscopy (EGD) Family History Father Diabetes HTN (hypertension) Heart attack Mother Skin cancer HTN (hypertension) Diabetes Paternal Aunt Heart attack Sister Skin cancer Social History Household Members: Spouse Housing: Condominium Are you a primary home health care physician to a significant other at home: No Do you presently have visiting nurse or other home services: Yes Alcohol intake: never Patient Tobacco Use Status: Former Tobacco user Tobacco use type: Cigarette Years Smoked: (former smoker - onset 15yo, 1ppd x 36yrs, 35pyh, quit 2011) e-Cigarette/Vaping Use: Never Used Second Hand Smoke Exposure: No Substance Use Type: Marijuana service: No Current occupational status: retired Cognitive needs: No Hearing needs: No Vision needs: No Review of Systems Const All systems reviewed & are unremarkable except as noted in HPI and below Eyes Reports no additional complaints ENT Reports nasal congestion and Reports nasal discharge Card Denies chest pain at rest, Denies chest pain with activity, Denies edema, Denies irregular heart rhythm, Denies claudication, Denies dyspnea, Denies dyspnea on exertion, Denies orthopnea, Denies paroxysmal nocturnal dyspnea and Denies slow heart rate Resp Denies cough, Denies dyspnea and Denies dyspnea on exertion GI Denies abdominal pain, Denies change in bowel habits, Denies excessive flatus, Denies nausea and Denies vomiting Denies urinary hesitancy, Denies urinary incontinence and Denies urinary urgency Musc Reports no additional complaints Skin/Breast Reports system reviewed and no additional complaints, except as documented Neuro Reports no additional complaints Psych Reports anxiety and Reports depression Endo Reports no additional complaints Jamie/Lymph Reports no additional complaints Physical Exam Vital Signs: Last Vital Signs Pulse 75 06/21/25 11:27 BP 122/68 06/21/25 11:27 Pulse Ox 97 06/21/25 11:27 Oxygen Delivery Method Room Air 06/21/25 11:27 BMI result Body Mass Index 29.2 Const General: comfortable, no acute distress, alert and awake Orientation/consciousness: patient oriented x3 HEENT Head: Yes normal to inspection General nose exam: No nasal polyps present and No nasal discharge present Face and sinus: Yes sinuses nontender Mouth: oropharynx normal Throat: Yes posterior oropharynx normal Eyes General: appearance normal, both eyes and all related structures Neck Neck: Yes normal visual inspection, Yes no lymphadenopathy, Yes trachea midline and Yes no JVD Thyroid: Thyroid normal Chest Chest palpation & inspection: normal inspection of the chest, normal palpation of entire chest wall and no tenderness Resp Other: Percussion note resonant, breath sounds are slightly distant with prolonged e xpiratory phase, equal on both sides. No wheezes or rhonchi are heard today. Cardio Palpation: normal PMI Rate: regular rate Rhythm: regular rhythm Heart sounds: no gallops and no murmurs GI Palpation (GI): Soft to palpation, nontender, No hepatosplenomegaly present, no masses and Other GI palpation findings present (Abdomen moderately protuberant, due to surgical scar/ventral hernia ) Auscultation: normal bowel sounds Back/Spine/Pelvis Thoracic/Lumbar Spine: thoracic and lumbar spine normal to inspection Skin General skin exam: no rashes or lesions noted Neuro General: patient oriented x3 and no focal motor deficits Cranial nerves: Yes CN's II-XII intact bilaterally Extrem General: Yes normal to inspection, Yes no clubbing, cyanosis or edema and Yes no calf tenderness Psych Appearance: grossly normal and well kempt Speech and movement: Normal speech and movement present Assessment & Plan Assessment & Plan (1) COPD (chronic obstructive pulmonary disease): Comment: Moderate degree of chronic obstructive pulmonary disease, ., SEC TO PAST h/o SMOKING STABLE AT THIS TIME. HE CLAIMS THAT HIS BREATHING IS MUCH BETTER ESPECIALLY SINCE HE HAS LOST SOME WEIGHT. Code(s): J44.9 - Chronic obstructive pulmonary disease, unspecified Category: Medical Qualifiers: COPD type: emphysema Emphysema type: panlobular Qualified Code(s): J43.1 - Panlobular emphysema Plan: Continue to use Incruse Ellipta 1 inhalation daily albuterol solution in the nebulizer Q 4-6 hours prn, and albuterol HFA 2 puffs Q 4-6 hours p.r.n. when outdoors. (2) Personal history of nicotine dependence: Comment: (former smoker - onset 15yo, 1ppd x 36yrs, 35pyh, quit 2011, + marijuana use only minimal and off and on. Code(s): Z87.891 - Personal history of nicotine dependence Category: Medical Plan: Commended for not smoking. Advised to keep use of marijuana to minimal. Last LDCT on 06/10 : BENIGN CATEGORY 2 (3) Allergic rhinitis: Comment: Chronic, perineal, allergic type rhinitis, remains controlled. Currently has very little symptoms . Code(s): J30.9 - Allergic rhinitis, unspecified Category: Medical Plan: CONTINUE MONTELUKAST 10 MG DAILY AND CETIRIZINE 10 MG ONCE A DAY PRN Coding Level of Care Code Est Pt Level 3 (03249) Diagnoses Panlobular emphysema J43.1 COPD type: emphysema Emphysema type: panlobular Personal history of nicotine dependence Z87.891 Allergic rhinitis J30.9
--- OUTSIDE RECORDS SUMMARY | 2025-06-21 12:34 | XMS_ITS | Encounter Summary ---
Author Organization [employer] Address [address] [facility] 7 [place] [address] Care Team Providers Care Lens Grinding Machine Operator Name Role Phone Unavailable Primary Care Provider Unavailabl e Encounter Details Date Type Department Care Team (Late Contact Info) Description 10/08/2022 Abstract [facility] [address] [place] [address] Raymundo, Erum [address] [place] [address] Social History Tobacco Use Types Packs/Day Years [...] Description 10/27/2025 2:00 PM EDT Office Visit [facility] [address] [place] [address] Saniya Veliz, OD [address] [place] [address] documented as of this encounter Visit Diagnoses Not on filedocumented in this encounter
--- OUTSIDE RECORDS SUMMARY | 2025-06-21 12:34 | XMS_ITS | Encounter Summary ---
Author Organization [employer] Address [address] [place] [address] [address] [place] [address] Care Team Providers Care Overseamer Name Role Phone Unavailable Primary Care Provider Unavailabl e Reason for Visit * Reason Comments Med Refill Encounter Details Date Type Department Care Team (Late st Contact Info) Description 06/03/[address] [facility] [address] [place] [address] Saniya Veliz, OD [address] [place] [address] Social History Tobacco Use Types Packs/Day Years [...] Description 10/27/2025 2:00 PM EDT Office Visit [facility] [address] [place], [place] [phone] Saniya Veliz, OD [address] [place] [address] documented as of this encounter Goals Goal [...]
--- OUTSIDE RECORDS SUMMARY | 2025-06-21 12:35 | XMS_ITS | Encounter Summary ---
Author Organization [employer] Address [address] [place] [address] [address] [place] [address] Care Team Providers Care Line Maintenance Technician Name Role Phone Unavailable Primary Care Provider Unavailabl e Reason for Visit * Reason Comments Med Refill Encounter Details Date Type Department Care Team (Late st Contact Info) Description 06/01/2025 Refill [facility] [address] [place] [address] Saniya Veliz, OD [address] [place] [address] Social History Tobacco Use Types Packs/Day Years [...] Description 10/27/2025 2:00 PM EDT Office Visit [facility] [address] [place], [place] [phone] Saniya Veliz, OD [address] [place] [address] documented as of this encounter Goals Goal [...]
--- OUTSIDE RECORDS SUMMARY | 2025-06-21 12:35 | XMS_ITS | Clinical Summary ---
Author Organization [employer] Address [address] [facility] [address] [place] [address] Care Team Providers Care Research Archaeologist Name Role Phone Unavailable Primary Care Provider [...] DAILY 3 Active Lancets (OneTouch Delica Plus [id number]) misc USE ONCE DAILY 3 Active OneTouch [...] mouth Once per day. 5 Active dextran 70-hypromellose (artificial tears) 0.1-0.3 % ophthalmic solutionIndicat ions:Dry eyes Administer 1 drop into both eyes 4 times daily. 30 mL 11 5 06/03/20 26 Active Active Problems Problem Noted Date Diagnosed Date Open fracture of tooth 02/13/2024 Fractured dental jainism with loss of materi al 02/02/2024 Diabetes [...] Asthma-chronic obstructive p ulmonary disease overlap syndrome ([facility]/HCC) 11/04/2017 Benzodiazepine dependence ([facility]) 11/04/2017 Chronic recurrent sinusitis 11/04/2017 Colitis 11/04/2017 Disorder of tendon of shoulder region 11/04/2017 Dry eyes 11/04/2017 Gastroesophageal reflux disease without esophagi tis 11/04/2017 Lumbar back pain with radicu lopathy affecting right lower extremity 11/04/2017 Mood disorder 11/04/2017 Noise-induced hearing loss 11/04/2017 Obesity 11/04/2017 Opioid dependence in remission ([facility]/HCC) 018 Encounters Date Type Department Care Team Description 06/03/2025 Refill [facility] [address] [place] [address] Sharad Velizn, OD 06/03/2025 Orders Only [facility] [address] [place] [address] Sharad Velizn, OD Dry eyes (Primary Dx) 06/02/2025 Refill [facility] [address] [place] [address] Sharad Velizn, OD 06/01/2025 Refill [facility] [address] [place] [address] Sharad Velizn, OD 05/18/2025 Refill [facility] [address] [place] [address] Sharad Velizn, OD 04/29/2025 2:00 PM EDT Office Visit [facility] [address] [place] [address] Saniya Veliz, OD Type 2 diabetes mellitus without ophthalmic [...] Description 10/27/2025 2:00 PM EDT Office Visit [facility] [address] [place], [place] [phone] Jose Alfredo, Saniya, OD [address] [place], [place] [phone] Health Maintenance Due Date Last Done Comments [...] patients manage their type 2 diabetes No Sharad eVlizn, OD Patient has chronic kidney disease Care Plan Patient has chronic kidney disease No Sharad Velizn, OD Weekly blood pressure task Care Plan Weekly blood pressure task No Sharad Velizn, OD Patient has chronic kidney disease Care Plan Patient has chronic kidney disease No Sharad Velizn, OD Procedures Procedure Name Priority Date/Time Associated [...] - Both Eyes (04/29/2025 2:00 PM EDT) Saniya Snyder, OD - 05/16/2025 2:33 PM EST Images [...] months for an updated visual field exam. Saniya Veliz OD OPHTH TOMOGRAPHY Final Result from Last 3 Months Additional Health Concerns Active Problems Noted Date Diagnosed Date Help patients manage their type 2 diabetes 05/16 Weekly blood pressure task 05/16/2025 Help patients manage their type 2 diabetes 05/16 Patient has chronic kidney disease 05/16/2025 Weekly blood pressure task 05/16/2025 Patient has chronic kidney disease 05/16/2025 Insurance [facility] CARE < 65 [facility]
--- OUTSIDE RECORDS SUMMARY | 2025-06-21 12:35 | XMS_ITS | Patient Health Record ---
Author Organization [facility] Address [address] [facility] [place] [address] Care Team Providers Care Paratransit Driver Name Role Phone Shelli Moore MD Primary Care Provider Unavail able Juany Munson Unavailable [phone] Allergies Allergen (clinical drug ingredient) Drug/Non Drug [...] Active Proctosol HC 2.5 % 1 application Nut And Bolt Assembler ally Twice a day Active Mesalamine 1.2 [...] Problem Acquired hammer toe of right foot (7584026864102634 ) Other hammer toe(s) (acquired), right foot (M20.41) Active confirmed Problem Acquired hammer toe of left foot (3945447127435339 ) Other hammer toe(s) (acquired), left foot (M20.42) Active confirmed Problem Plantar wart of left foot (4660472378305197 2) Plantar wart (B07.0) Active confirmed Problem Polyneuropathy due to diabetes mellitus (16625095) Type 2 diabetes mellitus with polyneuropathy (E11.42) Active confirmed Vital Signs Blood pressure diastolic 92 mm Hg 04/12/2025 Height 5ft 9in in 04/12/2025 Blood pressure systolic 117 mm Hg 04/12/2025 Weight 200 lbs 04/12/2025 BMI 29.53 kg/m2 04/12/2025 Encounters Encounter Location Date Provider Diagnosis [address] [address] 09/01/2024 Juany Munson Tinea pedis of both feet B35.3 ; Other hammer toe(s) (acquired), right foot M20.41 ; Tinea unguium B35.1 ; Type 2 diabetes mellitus with polyneuropathy E11.42 ; Plantar wart B07.0 ; Pain in left foot M79.672 and Other hammer toe(s) (acquired), left foot M20.[address] [address] 01/21/2025 Juany Munson Pain in left foot M79.672 ; Type 2 diabetes mellitus with polyneuropathy E11.42 ; Tinea unguium B35.1 and Plantar wart B07.[address] [address] 04/12/2025 Juany Pericjeremy Type 2 diabetes mellitus with polyneuropathy E11.42 ; Tinea pedis of both feet B35.3 ; Pain in left foot M79.672 ; Tinea unguium B35.1 and Plantar wart B07.[address] [address] 11/17/2024 Juany Munson [address] [address] 05/09/2025 Juany Munson Tinea pedis of both feet B35.3 Assessments Encounter Date Diagnosis (ICD Code) Assessment Notes Treatment Notes Treatment Clinical Notes Section Notes 09/01/2024 Other hammer toe(s) (acquired), right foot [...] B35.1) 09/01/2024 Tinea unguium (ICD-10 - B35.1) 01/21/2025 Plantar wart (ICD-10 - B07.0) 09/01/2024 Type 2 diabetes mellitus with polyneuropathy (ICD-10 - E11.42) 04/12/2025 Tinea unguium (ICD-10 - B35.1) 04/12/2025 Plantar wart (ICD-10 - B07.0) 09/01/2024 Plantar wart (ICD-10 - B07.0) 09/01/2024 Pain in left foot (ICD-10 - M79.672) 09/01/2024 Other hammer toe(s) (acquired), left foot (ICD-10 - M20.42) Plan Of Treatment Next Appt Details Provider Name:Juany luna, 07/19/2025 01:00:00 PM, [address] [place], [address], Insurance Providers Payer Name Payer Address Payer Phone Subscriber Number Group Number Insured Name Patient Relationship to Insured Coverage Start Date Coverage End Date [facility] [employer] Claims [address] [place] [id number] Kali Munoz Self - patient is the insured Medical (General) History Medical History History ICD Code Anxiety Back,Hip,and Knee pain covid-19 Depression Diabetic Headaches/Migraines Hepatitis Hiatal hernia Lung disease Psychiatric disorder Reflux ( GERD) sinusitis COPD Colitis Chicken pox Cholesterol Surgical History Surgery Date(Month/Year) cervical (spine?) surgery 2017 hernia [phone] peritonitis 2019 hernia 10/22
--- OUTSIDE RECORDS SUMMARY | 2025-06-21 12:35 | XMS_ITS | Encounter Summary ---
Author Organization [employer] Address [address] [place] [address] [address] [place] [address] Care Team Providers Care Ornamental Iron Worker Name Role Phone Unavailable Primary Care Provider Unavailabl e Reason for Visit * Reason Comments Med Refill Encounter Details Date Type Department Care Team (Late st Contact Info) Description 05/18/2025 Refill [facility] [address] [place] [address] Saniya Veliz, OD [address] [place] [address] Social History Tobacco Use Types Packs/Day Years [...] Description 10/27/2025 2:00 PM EDT Office Visit [facility] [address] [place], [place] [phone] Saniya Veliz, OD [address] [place] [address] documented as of this encounter Goals Goal [...]
--- OUTSIDE RECORDS SUMMARY | 2025-06-21 12:35 | XMS_ITS | Encounter Summary ---
Author Organization [employer] Address [address] [place] [address] [address] [place] [address] Care Team Providers Care Power Tool Repairer Name Role Phone Unavailable Primary Care Provider Unavailabl e Reason for Visit * Reason Comments Med Refill Encounter Details Date Type Department Care Team (Late st Contact Info) Description 06/02/2025 Refill [facility] [address] [place] [address] Saniya Veliz, OD [address] [place] [address] Social History Tobacco Use Types Packs/Day Years [...] Description 10/27/2025 2:00 PM EDT Office Visit [facility] [address] [place], [place] [phone] Saniya Veliz, OD [address] [place] [address] documented as of this encounter Goals Goal [...]
== END 2025-06-21 11:58 | disposition home or self-care (01) ==
LOC: HO.HPS 11:13
PROVIDERS: PCP Internal Medicine; Visit Provider Internal Medicine
DX: J43.1 Panlobular emphysema (principal); Z87.891 Personal history of nicotine dependence; J30.9 Allergic rhinitis, unspecified
CPT/HCPCS: 99213

== ENCOUNTER → 2025-06-21 11:12 | Outpatient (BNVA) | payer OTHER, SELFPAY | PROVIDERS: PCP Internal Medicine; Visit Provider Internal Medicine | DX: J43.1 Panlobular emphysema (principal); J30.9 Allergic rhinitis, unspecified; Z87.891 Personal history of nicotine dependence; Z79.899 Other long term (current) drug therapy | CPT/HCPCS: 99212 ==